=== PATIENT | male | born 1965 | race Caucasian/White ===

== ENCOUNTER 2016-09-25 05:04 | Inpatient (IN) | payer OTHER ==
[2016-09-25] MEDS ORDERED: DILTIAZEM 125 MG in SODIUM CHLORIDE 0.9% 100 ML IV ONE (05:20)
[2016-09-25] MEDS ORDERED: SODIUM CHLORIDE 0.9% 1,000 ML IV ONE ×2 (05:20→07:24)
--- NOTE | 2016-09-25 05:27 | ED ---
General Adult HPI - General Chief complaint: Chest Pain Stated complaint: chest pain Time Seen by Provider: 09/25/16 05:07 Source: patient, EMS Mode of arrival: EMS Limitations: no limitations - History of Present Illness Initial comments: This is a 51-year-old male with a history of a true fibrillation on Zarontin who presents emergency department for lightheadedness, generalized malaise, chest pain, shortness of breath. He states that the symptoms started this morning. He states he has not missed any of his medications. Denies any fevers or chills. No recent travel or surgeries. No history of PE or DVT. He states that he feels like he is in atrial fibrillation and denies any other complaints. - Related Data Home Medications Medication Instructions Recorded Confirmed Primidone 50 mg PO DAILY 07/10/15 09/25/16 Albuterol Inhaler [Ventolin Hfa 1 - 2 puff INHALATION RT-Q4H PRN 09/25/16 Inhaler] Albuterol Nebulized [Ventolin 2.5 mg INHALATION RT-TID 09/25/16 09/25/16 Nebulized] Budesonide [Pulmicort Flexhaler] 1 puff INHALATION RT-BID 09/25/16 09/25/16 PARoxetine HCL [Paxil] 40 mg PO DAILY 09/25/16 09/25/16 Rivaroxaban [Xarelto] 20 mg PO HS 09/25/16 09/25/16 Sotalol [Betapace] 80 mg PO Q12H 09/25/16 09/25/16 Tiotropium 18 Mcg/Puff [Spiriva] 1 cap INHALATION RT-DAILY 09/25/16 09/25/16 Previous Rx's Medication Instructions Recorded Atenolol [Tenormin] 25 mg PO DAILY #30 tab 05/17/16 Allergies Allergy/AdvReac Type Severity Reaction Status Date / Time warfarin [From Coumadin] AdvReac MAKES Verified 09/25/16 07:31 BLOOD TOO THIN Review of Systems ROS Statement: Those systems with pertinent positive or pertinent negative responses have been documented in the HPI. ROS Other: All systems not noted in ROS Statement are negative. Past Medical History Past Medical History: Atrial Fibrillation, Heart Failure, COPD, Hyperlipidemia, Hypertension, Pneumonia, Pulmonary Embolus (PE) Additional Past Medical History / Comment(s): CHF EF 40-45%, cardiomyopathy with an ejection fraction of 40%, tremors, proximated fibrillation, COPD, hypertension, hyperlipidemia, pulmonary emolism 04/22/2016 History of Any Multi-Drug Resistant Organisms: None Reported Past Surgical History: Adenoidectomy, Cholecystectomy, Tonsillectomy Additional Past Surgical History / Comment(s): RT HAND SX (TENDON REPAIR).RT THIGH SKIN LESION EXCISION(SQUAMOUS CELL CARCINOMA) Past Anesthesia/Blood Transfusion Reactions: No Reported Reaction Past Psychological History: No Psychological Hx Reported Smoking Status: Former smoker Past Alcohol Use History: Occasional Additional Past Alcohol Use History / Comment(s): STARTED SMOKING 1983, quit 2013 Past Drug Use History: None Reported - Past Family History Mother Family Medical History: Cancer, Coronary Artery Disease (CAD) Father Additional Family Medical History / Comment(s): IN [place] WHEN PT WAS 1 YEARS OLD. General Exam - General Exam Comments Initial Comments: Constitutional: Awake alert Appears comfortable Head: Normocephalic atraumatic Eyes: no conjunctival injection No scleral icterus EOMI Neck: No JVD Supple Heart: Irregularly irregular rhythm with tachycardia normal S1-S2 no murmurs Lungs: Clear to auscultation bilaterally No wheezing No rales Abdomen: Soft nondistended nontender Extremities: Non edematous DP pulses intact Radial pulses intact Neuro: A&Ox3 No focal neurologic deficits Psych: Appropriate mood and affect Limitations: no limitations Course Vital Signs 09/25/16 09/25/16 09/25/16 05:04 05:24 06:53 Temperature 97 F L Pulse Rate 71 129 H Pulse Rate [ 143 H 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 No ST segment changes or T-wave inversions. QTC is 482. Other intervals are normal. No ectopy. Medical Decision Making - Lab Data Result diagrams: 09/25/16 05:19 09/25/16 05:19 Lab Results 09/25/16 09/25/16 09/25/16 Range/Units 05:19 05:19 05:19 WBC 11.3 H (3.8-10.6) k/uL RBC 4.26 L (4.30-5.90) m/uL Hgb 12.0 L (13.0-17.5) gm/dL Hct 38.0 L (39.0-53.0) % MCV 89.2 (80.0-100.0) fL MCH 28.2 (25.0-35.0) pg MCHC 31.7 (31.0-37.0) g/dL RDW 15.6 H (11.5-15.5) % Plt Count 300 (150-450) k/uL Neutrophils % 56 % Lymphocytes % 33 % Monocytes % 7 % Eosinophils % 0 % Basophils % 0 % Neutrophils # 6.4 (1.3-7.7) k/uL Lymphocytes # 3.7 (1.0-4.8) k/uL Monocytes # 0.8 (0-1.0) k/uL Eosinophils # 0.1 (0-0.7) k/uL Basophils # 0.0 (0-0.2) k/uL PT 12.2 H (9.0-12.0) sec INR 1.2 (<1.1) APTT 27.8 (22.0-30.0) sec Sodium 147 H (137-145) mmol/L Potassium 4.8 (3.5-5.1) mmol/L Chloride 113 H (98-107) mmol/L Carbon Dioxide 17 L (22-30) mmol/L Anion Gap 17 mmol/L BUN 15 (9-20) mg/dL Creatinine 1.20 (0.66-1.25) mg/dL Est GFR (MDRD) Af Amer >60 (>60 ml/min/1.73 sqM) Est GFR (MDRD) Non-Af >60 (>60 ml/min/1.73 sqM) Glucose 114 H (74-99) mg/dL Plasma Lactic Acid Ernesto (0.7-2.0) mmol/L Calcium 8.8 (8.4-10.2) mg/dL Magnesium 1.8 (1.6-2.3) mg/dL Total Bilirubin 0.7 (0.2-1.3) mg/dL AST 49 (17-59) U/L ALT 52 (21-72) U/L Alkaline Phosphatase 114 (38-126) U/L CK-MB (CK-2) (0.0-2.4) ng/mL Troponin I (0.000-0.034) ng/mL Total Protein 6.8 (6.3-8.2) g/dL Albumin 3.7 (3.5-5.0) g/dL TSH <0.015 L (0.465-4.680) mIU/L Free T4 4.40 H (0.78-2.19) ng/dL 09/25/16 09/25/16 Range/Units 05:19 06:40 WBC (3.8-10.6) k/uL RBC (4.30-5.90) m/uL Hgb (13.0-17.5) gm/dL Hct (39.0-53.0) % MCV (80.0-100.0) fL MCH (25.0-35.0) pg MCHC (31.0-37.0) g/dL RDW (11.5-15.5) % Plt Count (150-450) k/uL Neutrophils % % Lymphocytes % % Monocytes % % Eosinophils % % Basophils % % Neutrophils # (1.3-7.7) k/uL Lymphocytes # (1.0-4.8) k/uL Monocytes # (0-1.0) k/uL Eosinophils # (0-0.7) k/uL Basophils # (0-0.2) k/uL PT (9.0-12.0) sec INR (<1.1) APTT (22.0-30.0) sec Sodium (137-145) mmol/L Potassium (3.5-5.1) mmol/L Chloride (98-107) mmol/L Carbon Dioxide (22-30) mmol/L Anion Gap mmol/L BUN (9-20) mg/dL Creatinine (0.66-1.25) mg/dL Est GFR (MDRD) Af Amer (>60 ml/min/1.73 sqM) Est GFR (MDRD) Non-Af (>60 ml/min/1.73 sqM) Glucose (74-99) mg/dL Plasma Lactic Acid Ernesto 5.1 H* (0.7-2.0) mmol/L Calcium (8.4-10.2) mg/dL Magnesium (1.6-2.3) mg/dL Total Bilirubin (0.2-1.3) mg/dL AST (17-59) U/L ALT (21-72) U/L Alkaline Phosphatase (38-126) U/L CK-MB (CK-2) 1.3 (0.0-2.4) ng/mL Troponin I <0.012 (0.000-0.034) ng/mL Total Protein (6.3-8.2) g/dL Albumin (3.5-5.0) g/dL TSH (0.465-4.680) mIU/L Free T4 (0.78-2.19) ng/dL Critical Care Time Critical Care Time: Yes Total Critical Care Time: 35 Critical Care Time: Critical care time spent obtaining history from the patient, evaluation, review of blood work, multiple fluid boluses, starting Cardizem drip and also given multiple doses of Lopressor. Spoke with multiple consultants including ICU, cardiology and internal medicine. Also spent with continuous cardiac monitoring of the patient and reevaluation. Disposition Clinical Impression: Atrial fibrillation with RVR, Hyperthyroidism, Lactic acidosis Disposition: ADMITTED IP TO THIS HOSP Condition: Stable
[2016-09-25 05:39] LABS: Basophils % (A) 0 %; CH 28.2; CHCM 31.8; Eosinophils # (A) 0.1 k/uL (0-0.7); Eosinophils % (A) 0 %; HDW 2.76; Luc # (Auto) 0.39; Luc % (Auto) 4; Lymphocytes # (A) 3.7 k/uL (1.0-4.8); Lymphocytes % (A) 33 %; MCH 28.2 pg (25.0-35.0); MCHC 31.7 g/dL (31.0-37.0); MCV 89.2 fL (80.0-100.0); Mean Platelet Volume 6.5; Monocytes # (A) 0.8 k/uL (0-1.0); Monocytes % (A) 7 %; Neutrophils # (A) 6.4 k/uL (1.3-7.7); Neutrophils % (A) 56 %; RBC 4.26 m/uL (4.30-5.90); RDW 15.6 % (11.5-15.5); WBC 11.3 k/uL (3.8-10.6); WBC (Perox) 11.05
[2016-09-25] MEDS ORDERED: DILTIAZEM 5 MG/ML 5 ML VIAL IVP STA (05:47)
[2016-09-25 05:48] LABS: INR 1.2 (<1.1); Partial Thromboplastin Time 27.8 sec (22.0-30.0); Prothrombin Time 12.2 sec (9.0-12.0)
[2016-09-25 05:51] LABS: ALT 52 U/L (21-72); AST 49 U/L (17-59); Alkaline Phosphatase 114 U/L (38-126); Anion Gap 17 mmol/L; Blood Urea Nitrogen 15 mg/dL (9-20); Calcium 8.8 mg/dL (8.4-10.2); Carbon Dioxide 17 mmol/L (22-30); Chloride 113 mmol/L (98-107); Glucose 114 mg/dL (74-99); Magnesium 1.8 mg/dL (1.6-2.3); Non-African American GFR(MDRD) >60 (>60 ml/min/1.73 sqM); Potassium 4.8 mmol/L (3.5-5.1); Sodium 147 mmol/L (137-145); Total Bilirubin 0.7 mg/dL (0.2-1.3); Total Protein 6.8 g/dL (6.3-8.2)
[2016-09-25 06:13] LABS: Creatine Kinase MB 1.3 ng/mL (0.0-2.4); Troponin I <0.012 ng/mL (0.000-0.034)
[2016-09-25] MEDS ORDERED: METOPROLOL TARTRATE 5 MG/5 ML VIAL IVP STA ×2 (06:48→07:19)
[2016-09-25] MEDS: SODIUM CHLORIDE 0.9% 1,000 ML IV SCH ×2 (06:55→09:44)
--- NOTE | 2016-09-25 07:29 | XR ---
EXAMINATION TYPE: XR chest 2V DATE OF EXAM: 09/25/2016 7:14 AM HISTORY: Pain. REFERENCE: Previous study dated 05/12/2016. FINDINGS: the lungs are clear. Pleural spaces are clear. Heart size is normal. IMPRESSION: NORMAL CHEST.
[2016-09-25] MEDS ORDERED: NALOXONE 0.4 MG/ML 1 ML VIAL IV PRN (08:08)
[2016-09-25 08:12] LABS: Appearance,Urine Cloudy (Clear); Bilirubin,Urine Negative (Negative); Glucose,Urine (UA) Negative (Negative); Ketones,Urine Trace (Negative); Leukocyte Esterase,Urine Negative (Negative); Mucus,Urine Rare /hpf; Nitrite,Urine Negative (Negative); Particle Count 6430; Protein,Urine 1+ (Negative); RBC,Urine <1 /hpf (0-5); Specific Gravity,Urine 1.019 (1.001-1.035); Squamous Epithelial Cell,Urine <1 /hpf (0-4); UA Billing (MACRO vs. MICRO) MICRO; WBC,Urine 2 /hpf (0-5)
[2016-09-25] MEDS ORDERED: METHIMAZOLE 5 MG TAB PO STA (08:28)
[2016-09-25] MEDS ORDERED: ATENOLOL 50 MG TAB PO STA (08:33)
[2016-09-25 10:09] LABS: Glucose,Whole Blood 93 mg/dL (75-99)
[2016-09-25] MEDS: PARoxetine 20 MG TAB PO SCH (10:30)
[2016-09-25] MEDS: PRIMIDONE 50 MG TAB PO SCH (10:35)
--- NOTE | 2016-09-25 13:52 | P.CNPUL ---
History of Present Illness Consult date: 09/25/16 Requesting physician: Nicole Girder Reason for consult: dyspnea, other (Palpitations and lightheadedness) Chief complaint: Chest pain History of present illness: This is a 51-year-old white male with history of chronic atrial fibrillation, on anticoagulation therapy, and on multiple antiarrhythmic agents, patient usually follows up with Dr. Gallardo on a regular basis for his atrial fibrillation. Patient presented to the ER this morning with multiple complaints including feeling lightheaded, weakness, fatigue malaise, and some shortness of breath as well as some vague left-sided chest discomfort. Upon evaluation in the ER, he was found to be in atrial fibrillation and RVR. Which is not unusual for this patient to have, and I have seen him in the past on multiple occasions for atrial fibrillation with RVR. Patient never had any ablation in the past, and never required cardioversion. Upon my evaluation, patient had mostly palpitations, some vague left-sided chest discomfort, denied any headaches no blurred vision no dizziness. No nausea no vomiting no abdominal pain no melena no hematemesis, no dysuria and no frequency no urgency. Patient is already on Cardizem drip, and he is yet to be seen by cardiology on consultation. His lactic acid was elevated in the ER, but no signs or symptoms to suggest ongoing infection. Review of Systems 14 point review of systems were obtained, please refer to pertinent positives and negatives in HPI. Past Medical History Past Medical History: Atrial Fibrillation, Atrial Flutter, Cancer, Heart Failure , COPD, Hyperlipidemia, Hypertension, Pneumonia, Pulmonary Embolus (PE) Additional Past Medical History / Comment(s): Paroxysmal A flutter, CHF EF 40-45 %, cardiomyopathy with an ejection fraction of 40%, tremors, COPD, pulmonary embolism 04/22/2016, squamous cell skin cancer with removal. History of Any Multi-Drug Resistant Organisms: None Reported Past Surgical History: Adenoidectomy, Cholecystectomy, Tonsillectomy Additional Past Surgical History / Comment(s): RT HAND SX (TENDON REPAIR).RT THIGH SKIN LESION EXCISION(SQUAMOUS CELL CARCINOMA) Past Anesthesia/Blood Transfusion Reactions: No Reported Reaction Past Psychological History: Anxiety Additional Psychological History / Comment(s): Pt resides with his brother. He is independent. Smoking Status: Former smoker Past Alcohol Use History: Occasional Additional Past Alcohol Use History / Comment(s): STARTED SMOKING 1983, quit 2013 Past Drug Use History: None Reported - Past Family History Mother Family Medical History: Cancer, Coronary Artery Disease (CAD) Additional Family Medical History / Comment(s): Mother had throat cancer and of this at the age of 68yrs. Father Additional Family Medical History / Comment(s): IN [place] WHEN PT WAS 1 YEARS OLD. Medications and Allergies Home Medications Medication Instructions Recorded Confirmed Type Primidone 50 mg PO DAILY 07/10/15 09/25/16 History Albuterol Inhaler [Ventolin Hfa 1 - 2 puff INHALATION RT-Q4H PRN 09/25/16 History Inhaler] Albuterol Nebulized [Ventolin 2.5 mg INHALATION RT-TID 09/25/16 09/25/16 History Nebulized] Budesonide [Pulmicort Flexhaler] 1 puff INHALATION RT-BID 09/25/16 09/25/16 History PARoxetine HCL [Paxil] 40 mg PO DAILY 09/25/16 09/25/16 History Rivaroxaban [Xarelto] 20 mg PO HS 09/25/16 09/25/16 History Sotalol [Betapace] 80 mg PO Q12H 09/25/16 09/25/16 History Tiotropium 18 Mcg/Puff [Spiriva] 1 cap INHALATION RT-DAILY 09/25/16 09/25/16 History Allergies Allergy/AdvReac Type Severity Reaction Status Date / Time warfarin [From Coumadin] AdvReac MAKES Verified 09/25/16 07:31 BLOOD TOO THIN Physical Exam Vitals: Vital Signs Temp Pulse Resp BP Pulse Ox 09/25/16 11:00 139 H 28 H 87/50 99 09/25/16 10:30 138 H 20 114/75 99 09/25/16 10:10 98.2 F 141 H 26 H 123/76 98 09/25/16 09:45 99.3 F 140 H 18 110/67 97 09/25/16 09:15 136 H 18 96 09/25/16 08:45 136 H 95 09/25/16 08:30 138 H 18 09/25/16 08:15 142 H 18 129/58 Intake and Output 09/24/16 09/25/16 09/25/16 22:59 06:59 14:59 Intake Total 680 Balance 680 Intake: IV 200 Sodium Chloride 0.9% 1, 200 000 ml @ 100 mls/hr IV . Q10H [facility] Rx#:[id number] Oral 480 Other: Voiding Method Urinal Weight 73.1 kg Patient Weight 09/26/16 06:59 Weight 73.1 kg Physical Exam: Revealed a 51-year-old white male in no distress HEENT:[Neck is supple.] [No neck masses.] [No thyromegaly.] [No JVD.] Chest: [Clear throughout, no crackles, no rhonchi, no wheezes.] Cardiac Exam: [Irregular irregular rhythm Normal S1 and S2, no S3 gallop, no murmur.] Abdomen: [Soft, nontender, no megaly, no rebound, no guarding, normal bowel sounds.] Extremities: [No clubbing, no edema, no cyanosis.] Neurological Exam: [No focal neurologic deficit.] Results - Laboratory Findings CBC and BMP: 09/25/16 05:19 09/25/16 05:19 PT/INR, D-dimer PT 12.2 sec (9.0-12.0) H 09/25/16 05:19 INR 1.2 (<1.1) 09/25/16 05:19 Abnormal lab findings: Abnormal Labs 09/25/16 10:48 Plasma Lactic Acid Ernesto 2.8 H* - Diagnostic Findings Chest x-ray: image reviewed (Normal chest) Assessment and Plan Plan: Impression: 1 paroxysmal atrial fibrillation with RVR. 2 history of multiple medical problems including COPD which is presently stable and inactive, history of hypertension, hyperlipidemia, history of cardiomyopathy ejection fraction is roughly about 40% based on previous echo. 3 elevated lactic acid, given fluid boluses in the ER, but no evidence of any clinical infection at this point. Strongly doubt any sepsis at this point. Recommendation: Agree with the present treatment plan, patient is presently on Cardizem drip, his also on beta blockers in the form of Inderal, and he is on anticoagulation therapy. Patient is also on bronchodilators as taken at home. We'll continue to follow. Time with Patient: Greater than 30
[2016-09-25] MEDS ORDERED: LACTATED RINGERS 1,000 ML IV SCH (14:45)
--- NOTE | 2016-09-25 15:59 | CONS ---
DATE OF CONSULTATION: This is a gentleman with a history of paroxysmal atrial fibrillation, and he also has hypothyroidism. He was supposed to see Dr. Tawana Chaparro in the next week or so. He sees Dr. Quick in the outpatient setting. He came into the hospital having episodes of dizziness, lightheadedness, falling down, weakness, lack of energy for nearly 48 hours. He was found to be in atrial fibrillation with a very rapid rate of nearly 180 beats per minute. He was also hyperthyroid, very tremulous, with a free T4 of 4.4. I received a call from the emergency room and I recommended that we initiate him on anti-thyroid drug and also Inderal. Patient apparently was on Betapace and atenolol at home and also Rivaroxaban 20 mg daily. However, patient is not a very good historian. He is unable to give me any information with regards to what medications he was taking. After he came into the hospital he received beta autumn and was placed on a Cardizem drip. He converted to sinus rhythm. At the time of my evaluation he is resting comfortably without symptoms and feels better. PAST MEDICAL HISTORY: 1. Paroxysmal atrial fibrillation. 2. 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 Medications at home include: 1. Xarelto. 2. Betapace. 3. Atenolol. On examination, blood pressure is 104/60. Pulse rate is 80 per minute. HEENT: Unremarkable. Fundus was not examined by me. Neck is supple. There is no JVD. I do not hear a carotid bruit. Heart exam reveals S1, S2 heard normally. Lungs are clear. Abdomen is soft, non-tender. Lower extremities reveal diminished pulses. Central nervous system grossly within normal limits. EKG revealed atrial fibrillation with rapid ventricular rate. Repeat EKG revealed sinus mechanism. IMPRESSION: 1. Paroxysmal atrial fibrillation. 2. Hyperthyroidism. 3. No evidence of any other major risk factors. RECOMMENDATIONS: I am recommending that we place him on Inderal 30 mg t.i.d. and also start him on PTU 200 mg q.8 hours for 3 days and then switch him to Tapazole 10 mg b.i.d. after that. He was also advised to follow up with Dr. Tawana Chaparro after discharge. He will have an echocardiogram performed as well. Thank you very much for the consult.
[2016-09-25] MEDS ORDERED: METHIMAZOLE 5 MG TAB PO SCH (16:00)
[2016-09-25] MEDS: PROPYLTHIOURACIL 50 MG TAB PO SCH ×2 (17:14→21:33)
[2016-09-25] MEDS: PROPRANOLOL 10 MG TAB PO SCH ×2 (17:14→21:34)
[2016-09-25] MEDS: SODIUM CHLORIDE 0.45% 1,000 ML IV SCH (17:15)
[2016-09-25] MEDS: BUDESONIDE 1 MG/2 ML NEBU INHALATION SCH (20:45)
[2016-09-25] MEDS ORDERED: RIVAROXABAN 10 MG TAB PO SCH (21:00)
--- NOTE | 2016-09-25 21:33 | HP ---
DATE OF ADMISSION: Patient is a 51-year-old with a history of chronic atrial fibrillation. He came in with complaints of palpitations. The patient was found to be in atrial fibrillation. Patient was feeling lightheaded, weak, fatigued, malaise. Patient is on anticoagulation Xarelto at home. Patient has a history of atrial fibrillation in the past. Patient at this point of time is tremulous. Patient has symptoms of hypothyroidism, including lack of sleep recently. Patient was complaining of left-sided chest discomfort. He was complaining of some diaphoresis which has been going on for some time. Patient in the past has required cardioversion. Patient's previous ejection fraction is essentially within normal limits. Patient was found to have hyperthyroidism. Patient was appropriately discharged on propylthiouracil as well as propranolol, and atenolol was discontinued. Patient is on Cardizem drip. Patient had an elevated lactic acid due to intravascular volume depletion. No other signs or symptoms of infection. Chest x-ray is essentially within normal limits. Patient denied any dysuria. REVIEW OF SYSTEMS: CONSTITUTIONAL: No fever, no malaise, no fatigue. HEENT: No recent visual problems or hearing problems. Denied any sore throat. CARDIOVASCULAR: As described in HPI. PULMONARY: No shortness of breath, no cough, no hemoptysis. GASTROINTESTINAL: No diarrhea, no nausea, no vomiting, no abdominal pain. Normoactive bowel sounds. NEUROLOGICAL: No headaches, no weakness, no numbness. HEMATOLOGICAL: Denies any bleeding or petechiae. GENITOURINARY: Denies any burning micturition, frequency, or urgency. MUSCULOSKELETAL/RHEUMATOLOGICAL: Denies any joint pain, swelling, or any muscle pain. ENDOCRINE: Denies any polyuria or polydipsia. The rest of the 14 point review of systems is negative. PAST MEDICAL HISTORY: 1. Atrial fibrillation. 2. COPD. 3. Hyperlipidemia 4. Pulmonary embolism in the past. 5. Hypertension. 6. Patient's last ejection fraction was around 55%. 7. Cholecystectomy. 8. Adenoidectomy. 9. Tonsillectomy. 10. Patient has now hyperthyroidism. 11. Anxiety disorder. SOCIAL HISTORY: Former smoker. Quit smoking in 2013. Denied any alcohol abuse or any drug abuse. FAMILY HISTORY: Mother had coronary disease and cancer. Father in [place]. HOME MEDICATIONS: 1. Primidone. 2. Albuterol. 3. Budesonide. 4. ( ) 5. Paroxetine. 6. Rivaroxaban. 7. Sotalol. 8. Tiotropium. ALLERGIES: COUMADIN. PHYSICAL EXAMINATION: VITAL SIGNS: Temperature 98.0, pulse of 68 on Cardizem drip. Respiratory rate of 33. Blood pressure is 110/63. Saturating at 97% on room air. GENERAL: The patient is alert and oriented x3, not in any acute distress. Well developed, well nourished. HEENT: Pupils are round and equally reacting to light. EOMI. No scleral icterus. No conjunctival pallor. Normocephalic, atraumatic. No pharyngeal erythema. No thyromegaly. CARDIOVASCULAR: S1, S2 present. Patient is not tachycardic. Patient has irregularly irregular rhythm. PULMONARY: Chest is clear to auscultation, no wheezing or crackles. ABDOMEN: Soft, nontender, nondistended, normoactive bowel sounds. No palpable organomegaly. MUSCULOSKELETAL: No joint swelling or deformity. EXTREMITIES: No cyanosis, clubbing, or pedal edema. NEUROLOGICAL: Gross neurological examination did not reveal any focal deficits. SKIN: No rashes. LABORATORY DATA, SIGNIFICANT ONES: TSH is low and T4 is elevated. Lactate is elevated. Because of the elevated chloride and sodium I will put him on half normal saline. ASSESSMENT AND PLAN: 1. Atrial fibrillation with rapid ventricular rate. Patient has paroxysmal atrial fibrillation. Management as mentioned above. Patient will be continued on Xarelto. 2. Hyperthyroidism. Patient was started on PT and propranolol and beta autumn was discontinued. 3. Chronic obstructive pulmonary disease without any acute exacerbation. 4. Elevated lactic acid secondary to intravascular volume depletion. No signs or symptoms of infection were appreciated. Initially I started him on lactated Ringer's, which will be discontinued. Since I discovered increased lactic, patient will be started on IV half normal saline. Patient has hypernatremia and hyperchloremia due to IV fluids he was receiving.
[2016-09-25 21:47] VITALS: RESP 16
[2016-09-26] MEDS: SODIUM CHLORIDE 0.45% 1,000 ML IV SCH ×2 (04:04→15:12)
[2016-09-26] MEDS: PROPYLTHIOURACIL 50 MG TAB PO SCH ×2 (07:00→15:11)
[2016-09-26] MEDS: BUDESONIDE 1 MG/2 ML NEBU INHALATION SCH (07:35)
[2016-09-26] MEDS ORDERED: TIOTROPIUM 18 MCG/PUFF INHALER INHALATION SCH (08:00)
[2016-09-26] MEDS: PRIMIDONE 50 MG TAB PO SCH (08:43)
[2016-09-26] MEDS: PARoxetine 20 MG TAB PO SCH (08:43)
[2016-09-26] MEDS: PROPRANOLOL 10 MG TAB PO SCH ×2 (08:44→15:11)
--- NOTE | 2016-09-26 09:52 | ECHOF ---
Referral Reason:afib with rvr MEASUREMENTS -------- HEIGHT: 162.6 cm WEIGHT: 73.0 kg BP: 117/55 IVSd: 1.2 cm (0.6 - 1.1) LVIDd: 5.5 cm (3.9 - 5.3) LVPWd: 1.1 cm (0.6 - 1.1) IVSs: 1.3 cm LVIDs: 4.9 cm LVPWs: 1.0 cm LA Diam: 4.4 cm (2.7 - 3.8) LAESV Index (A-L): 34.83 ml/m Ao Diam: 3.2 cm (2.0 - 3.7) AV Cusp: 2.0 cm (1.5 - 2.6) LA Diam: 3.9 cm (2.7 - 3.8) MV EXCURSION: 22.213 mm (> 18.000) MV EF SLOPE: 109 mm/s (70 - 150) EPSS: 0.8 cm MV E Aris: 1.11 m/s MV DecT: 196 ms MV A Aris: 0.75 m/s MV E/A Ratio: 1.48 RAP: 5.00 mmHg RVSP: 42.49 mmHg FINDINGS -------- Sinus rhythm. This was a technically adequate study. There is mild concentric left ventricular hypertrophy. Overall left ventricular systolic function is low-normal with, an EF between 50 - 55 %. The right ventricle is normal in size. LA is moderately dilated 34-39 ml/m2 The right atrial size is normal. There is mild aortic valve sclerosis. There is no evidence of aortic regurgitation. Mild mitral annular calcification present. Mild mitral regurgitation is present. Mild tricuspid regurgitation present. There is mild pulmonary hypertension. The right ventricular systolic pressure, as measured by Doppler, is 42.49mmHg. There is no pulmonic regurgitation present. The aortic root size is normal. There is no pericardial effusion. CONCLUSIONS -------- 1. There is mild concentric left ventricular hypertrophy. 2. There is no pulmonic regurgitation present. 3. The aortic root size is normal. 4. There is no pericardial effusion. 5. Overall left ventricular systolic function is low-normal with, an EF between 50 - 55 %. 6. LA is moderately dilated 34-39 ml/m2 7. There is mild aortic valve sclerosis. 8. Mild mitral annular calcification present. 9. Mild mitral regurgitation is present. 10. Mild tricuspid regurgitation present. 11. There is mild pulmonary hypertension. 12. The right ventricular systolic pressure, as measured by Doppler, is 42.49mmHg. CATERING CHEF: Radha Zee RDCS
--- NOTE | 2016-09-26 12:03 | P.PN ---
Subjective Principal diagnosis: Atrial fibrillation This is a 51-year-old gentleman with history of paroxysmal atrial fibrillation and hypothyroidism who follows regularly with Dr. Quick in the office. He presented to the hospital primarily with symptoms of dizziness and lightheadedness, he was found to be in atrial fibrillation with a rapid ventricular response. Patient continues to be in atrial fibrillation today, his rate is under better control. Echocardiogram with Doppler study was performed which revealed an ejection fraction of 50-55%. Patient is currently on Inderal 30 mg 3 times a day as well as Xarelto. We will continue these current medications. Objective - Vital Signs Vital signs: Vital Signs Temp 97.3 F L 09/26/16 08:00 Pulse 80 09/26/16 08:00 Resp 16 09/26/16 08:00 BP 132/71 09/26/16 08:00 Pulse Ox 99 09/26/16 08:00 Intake & Output 09/25/16 09/26/16 09/26/16 18:59 06:59 18:59 Intake Total 2423 950 120 Output Total 275 750 950 Balance 2148 200 -830 Weight 73.1 kg 74.5 kg Intake: IV 900 950 Sodium Chloride 0.45% 1, 950 000 ml @ 100 mls/hr IV . Q10H RENZO Rx#:[id number] Sodium Chloride 0.9% 1, 900 000 ml @ 100 mls/hr IV . Q10H RENZO Rx#:[id number] Intake, IV Titration 83 Amount Diltiazem 125 mg In 83 Sodium Chloride 0.9% 100 ml @ 10 MG/HR 10 mls/hr IV .[id number] ONE Rx#: [id number] Oral 1440 120 Output: Urine 275 750 950 Other: Voiding Method Urinal Urinal Urinal # Voids 0 - Exam PHYSICAL EXAMINATION: HEENT: Head is atraumatic, normocephalic. Pupils equal, round. Neck is supple. There is no elevated jugular venous pressure. HEART EXAMINATION: S1 and S2 irregularly irregular CHEST EXAMINATION: Lungs are clear to auscultation and precussion. No chest wall tenderness is noted on palpation or with deep breathing. ABDOMEN: Soft, nontender. Bowel sounds are heard. No organomegaly noted. EXTREMITIES: 2+ peripheral pulses with no evidence of peripheral edema and no calf tenderness noted. NEUROLOGIC patient is awake, alert and oriented -3. . - Labs CBC & Chem 7: 09/25/16 05:19 09/25/16 05:19 Assessment and Plan (1) Paroxysmal a-fib Status: Acute (2) COPD (chronic obstructive pulmonary disease) Status: Acute (3) HTN (hypertension) Status: Acute (4) Hyperlipemia Status: Acute (5) Hypertension Status: Acute Plan: From cardiology's perspective, we'll continue the patient on his current medications including anticoagulation with xarelto. DNP note has been reviewed, I agree with a documented findings and plan of care. Patient was seen and examined.
[2016-09-26 12:24] VITALS: BP 126/63; PULSE 82; TEMP 98.6
--- NOTE | 2016-09-27 12:40 | DS ---
DATE OF ADMISSION: 09/25/2016 DATE OF DISCHARGE: 09/26/2016 62-year-old admitted for atrial fibrillation precipitated by primary hyperparathyroidism. Patient is clinically doing well. Rate-controlled since last night and converted to sinus rhythm. Patient was started on ( ) and patient still has tremors which is expected improved down the line and patient will be discharged today. REVIEW OF SYSTEMS: CARDIOVASCULAR: No chest pain, no orthopnea, no PND, no palpitations. PULMONARY: Denied any shortness of breath. No cough or hemoptysis. GASTROINTESTINAL: No diarrhea, nausea or vomiting. No abdominal pain. Normoactive bowel sounds. NEUROLOGIC: No headaches, no weakness, no numbness. Medications were reviewed. PHYSICAL EXAMINATION: VITAL SIGNS: Temperature 98.6, pulse 80, respiratory rate of 16, blood pressure is 126/63, saturating at 99% on room air. GENERAL: Patient is alert and oriented x3. Patient does have nonessential tremor at this point of time. HEENT: Pupils are round and equally reacting to light. EOMI. No scleral icterus. No conjunctival pallor. Normocephalic, atraumatic. No pharyngeal erythema. No thyromegaly. CARDIOVASCULAR: S1 and S2 present. No murmurs, rubs, or gallops. PULMONARY: Chest is clear to auscultation, no wheezing or crackles. ABDOMEN: Soft, nontender, nondistended, normoactive bowel sounds. No palpable organomegaly. MUSCULOSKELETAL: No joint swelling or deformity. EXTREMITIES: No cyanosis, clubbing, or pedal edema. NEUROLOGICAL: Gross neurological examination did not reveal any focal deficits. SKIN: No rashes. LABORATORY DATA: None available from today. ASSESSMENT AND PLAN: 1. Atrial fibrillation with rapid ventricular rate. Patient is rate-controlled at this point of time. Patient is on ( ) which will be continued. 2. Primary hyperparathyroidism. Patient was started on ( ) and ( ). The patient is clinically doing well and will be discharged today. 3. Chronic obstructive pulmonary disease without any acute exacerbation. 4. Elevated lactic acid due to intravascular volume depletion. Patient has COPD, which needs to be watched for because Propranolol can precipitate chronic obstructive pulmonary disease. Patient is otherwise clinically doing well and please refer to my depart summary for details of discharge medications. Activity as tolerated. Cardiac diet. Follow up with primary care physician, Dr. Mónica Acosta in 3 days. Follow up with Dr. Tommie Chaparro as scheduled and follow-up with Dr. Tawana Chaparro in one week. Activity as tolerated. Cardiac diet. Spent greater than 35 minutes in total discharge process.
== END 2016-09-26 19:49 | disposition home or self-care (01) | DRG 309 ==
LOC: EC 05:04 → 6ICU 08:08 → 6SEL 19:18
PROVIDERS: ADMIT Hospitalist; ATTEND Hospitalist
DX: I48.0 Paroxysmal atrial fibrillation (principal); E87.2 Acidosis; E87.0 Hyperosmolality and hypernatremia; I11.0 Hypertensive heart disease with heart failure; I42.9 Cardiomyopathy, unspecified; E87.8 Other disorders of electrolyte and fluid balance, not elsewhere classified; I50.9 Heart failure, unspecified; I48.92 Unspecified atrial flutter; J44.9 Chronic obstructive pulmonary disease, unspecified; E05.90 Thyrotoxicosis, unspecified without thyrotoxic crisis or storm; E86.9 Volume depletion, unspecified; E21.0 Primary hyperparathyroidism; E78.5 Hyperlipidemia, unspecified; Z86.711 Personal history of pulmonary embolism; Z85.828 Personal history of other malignant neoplasm of skin; Z90.49 Acquired absence of other specified parts of digestive tract; Z87.891 Personal history of nicotine dependence; Z79.51 Long term (current) use of inhaled steroids; Z79.01 Long term (current) use of anticoagulants; Z79.899 Other long term (current) drug therapy; F41.9 Anxiety disorder, unspecified; Z82.49 Family history of ischemic heart disease and other diseases of the circulatory system
CPT/HCPCS: 36415; 71020; 80053; 81001; 82553; 83605; 83735; 84439; 84443; 84484; 85025; 85610; 85730; 87086; 93005; 93306; 94640; 96366; 96375; 96376; 99291

== ENCOUNTER 2016-10-13 10:31 | Inpatient (IN) | payer OTHER ==
[2016-10-13] MEDS ORDERED: LORazepam 2 MG/ML SYRINGE IV STA (10:36)
[2016-10-13] MEDS ORDERED: ALBUTEROL NEBULIZED 15 MG, IPRATROPIUM NEBULIZED 0.5 MG INHALATION ONE ×2 (10:37)
[2016-10-13] MEDS ORDERED: IPRATROPIUM 0.5 MG/2.5 ML NEBU INHALATION STA (10:37)
--- NOTE | 2016-10-13 10:41 | ED ---
General Adult HPI - General Stated complaint: Chest Pain Time Seen by Provider: 10/13/16 10:31 Source: RN notes reviewed - History of Present Illness Initial comments: This is a 51-year-old male who presents to the emergency department with past medical history significant for atrial fibrillation COPD and congestive heart failure. Patient presents today starting to have difficulty breathing that became severe so he called EMS. When EMS arrived they said he was very diaphoretic complaining of left-sided chest pain which nitroglycerin did not relieve. Patient received albuterol and steroids on the way in he did stated that it did not help his breathing. Patient states the chest pain does seem to have improved. Patient denies any recent fever chills or cough per patient denies any abdominal pain. Patient denies headache patient denies numbness weakness. Patient denies any lightheadedness dizziness or near syncopal episode. Patient denies any calf pain or swelling of the legs. - Related Data Home Medications Medication Instructions Recorded Confirmed Primidone 50 mg PO DAILY 07/10/15 09/25/16 Albuterol Inhaler [Ventolin Hfa 1 - 2 puff INHALATION RT-Q4H PRN 09/25/16 Inhaler] Albuterol Nebulized [Ventolin 2.5 mg INHALATION RT-TID 09/25/16 09/25/16 Nebulized] Budesonide [Pulmicort Flexhaler] 1 puff INHALATION RT-BID 09/25/16 09/25/16 PARoxetine HCL [Paxil] 40 mg PO DAILY 09/25/16 09/25/16 Rivaroxaban [Xarelto] 20 mg PO HS 09/25/16 09/25/16 Tiotropium 18 Mcg/Puff [Spiriva] 1 cap INHALATION RT-DAILY 09/25/16 09/25/16 Previous Rx's Medication Instructions Recorded Propranolol [Inderal] 30 mg PO TID #90 tab 09/26/16 Propylthiouracil 200 mg PO Q8H #15 tab 09/26/16 Allergies Allergy/AdvReac Type Severity Reaction Status Date / Time warfarin [From Coumadin] AdvReac MAKES Verified 09/25/16 07:31 BLOOD TOO THIN Review of Systems ROS Statement: Those systems with pertinent positive or pertinent negative responses have been documented in the HPI. ROS Other: All systems not noted in ROS Statement are negative. Past Medical History Past Medical History: Atrial Fibrillation, Atrial Flutter, Cancer, Heart Failure , COPD, Hyperlipidemia, Hypertension, Pneumonia, Pulmonary Embolus (PE) Additional Past Medical History / Comment(s): Paroxysmal A flutter, CHF EF 40-45 %, cardiomyopathy with an ejection fraction of 40%, tremors, COPD, pulmonary embolism 04/22/2016, squamous cell skin cancer with removal. History of Any Multi-Drug Resistant Organisms: None Reported Past Surgical History: Adenoidectomy, Cholecystectomy, Tonsillectomy Additional Past Surgical History / Comment(s): RT HAND SX (TENDON REPAIR).RT THIGH SKIN LESION EXCISION(SQUAMOUS CELL CARCINOMA) Past Anesthesia/Blood Transfusion Reactions: No Reported Reaction Past Psychological History: Anxiety Additional Psychological History / Comment(s): Pt resides with his brother. He is independent. Smoking Status: Former smoker Past Alcohol Use History: Occasional Additional Past Alcohol Use History / Comment(s): STARTED SMOKING 1983, quit 2013 Past Drug Use History: None Reported - Past Family History Mother Family Medical History: Cancer, Coronary Artery Disease (CAD) Additional Family Medical History / Comment(s): Mother had throat cancer and of this at the age of 68yrs. Father Additional Family Medical History / Comment(s): IN [place] WHEN PT WAS 1 YEARS OLD. General Exam - General Exam Comments Initial Comments: GENERAL: Patient is well-developed and well-nourished. Patient is nontoxic and well- hydrated and is in moderate distress. ENT: Neck is soft and supple. No significant lymphadenopathy is noted. Oropharynx is clear. Moist mucous membranes. Neck has full range of motion without eliciting any pain. EYES: The sclera were anicteric and conjunctiva were pink and moist. Extraocular movements were intact and pupils were equal round and reactive to light. Eyelids were unremarkable. PULMONARY: Diminished breath sounds throughout. CARDIOVASCULAR: Patient is tachycardic ABDOMEN: Soft and nontender with normal bowel sounds. No palpable organomegaly was noted. There is no palpable pulsatile mass. SKIN: Skin is clear with no lesions or rashes and otherwise unremarkable. NEUROLOGIC: Patient is alert and oriented x3. Cranial nerves II through XII are grossly intact. Motor and sensory are also intact. Normal speech, volume and content. Symmetrical smile. MUSCULOSKELETAL: Normal extremities with adequate strength and full range of motion. No lower extremity swelling or edema. No calf tenderness. LYMPHATICS: No significant lymphadenopathy is noted PSYCHIATRIC: Normal psychiatric evaluation. Normal interpersonal interactions appears functionally intact in deals appropriately with others. Patient is mildly anxious Course Vital Signs 10/13/16 10/13/16 10/13/16 10:36 10:40 10:44 Temperature 95.3 F L Pulse Rate 127 H 107 H Respiratory 36 H 36 H Rate Blood Pressure 163/113 O2 Sat by Pulse 100 Oximetry 10/13/16 10/13/16 10/13/16 11:01 11:32 11:38 Temperature Pulse Rate 107 H 102 H 99 Respiratory 26 H 28 H Rate Blood Pressure 146/97 140/80 O2 Sat by Pulse 100 100 Oximetry Medical Decision Making - Medical Decision Making EKG shows sinus tachycardia at 122 bpm CA interval 234 QRS is 96 Q-T intervals 318 QTC is 453. Patient's EKG shows no ST segment elevation or depression or T wave abnormalities are noted Chest x-ray shows some pulmonary edema. He started the patient on Lasix. - Lab Data Result diagrams: 10/13/16 10:40 10/13/16 10:40 Lab Results 10/13/16 10/13/16 10/13/16 Range/Units 10:40 10:40 10:40 WBC (3.8-10.6) k/uL RBC (4.30-5.90) m/uL Hgb (13.0-17.5) gm/dL Hct (39.0-53.0) % MCV (80.0-100.0) fL MCH (25.0-35.0) pg MCHC (31.0-37.0) g/dL RDW (11.5-15.5) % Plt Count (150-450) k/uL Neutrophils % % Lymphocytes % % Monocytes % % Eosinophils % % Basophils % % Neutrophils # (1.3-7.7) k/uL Lymphocytes # (1.0-4.8) k/uL Monocytes # (0-1.0) k/uL Eosinophils # (0-0.7) k/uL Basophils # (0-0.2) k/uL Hypochromasia Anisocytosis Macrocytosis PT (9.0-12.0) sec INR (<1.1) APTT (22.0-30.0) sec Sodium 143 (137-145) mmol/L Potassium 4.9 (3.5-5.1) mmol/L Chloride 112 H (98-107) mmol/L Carbon Dioxide 23 (22-30) mmol/L Anion Gap 8 mmol/L BUN 11 (9-20) mg/dL Creatinine 0.79 (0.66-1.25) mg/dL Est GFR (MDRD) Af Amer >60 (>60 ml/min/1.73 sqM) Est GFR (MDRD) Non-Af >60 (>60 ml/min/1.73 sqM) Glucose 141 H (74-99) mg/dL Calcium 9.0 (8.4-10.2) mg/dL Magnesium 1.6 (1.6-2.3) mg/dL Total Bilirubin 1.0 (0.2-1.3) mg/dL AST 97 H (17-59) U/L ALT 95 H (21-72) U/L Alkaline Phosphatase 155 H (38-126) U/L Total Creatine Kinase 34 L (55-170) U/L CK-MB (CK-2) 0.5 (0.0-2.4) ng/mL CK-MB (CK-2) Rel Index 1.5 Troponin I 0.016 (0.000-0.034) ng/mL NT-Pro-B Natriuret Pep 2430 pg/mL Total Protein 7.1 (6.3-8.2) g/dL Albumin 3.6 (3.5-5.0) g/dL 10/13/16 10/13/16 Range/Units 10:40 10:40 WBC 10.1 (3.8-10.6) k/uL RBC 3.99 L (4.30-5.90) m/uL Hgb 11.8 L (13.0-17.5) gm/dL Hct 37.4 L (39.0-53.0) % MCV 93.9 (80.0-100.0) fL MCH 29.6 (25.0-35.0) pg MCHC 31.6 (31.0-37.0) g/dL RDW 18.1 H (11.5-15.5) % Plt Count 399 (150-450) k/uL Neutrophils % 54 % Lymphocytes % 35 % Monocytes % 5 % Eosinophils % 1 % Basophils % 0 % Neutrophils # 5.5 (1.3-7.7) k/uL Lymphocytes # 3.6 (1.0-4.8) k/uL Monocytes # 0.5 (0-1.0) k/uL Eosinophils # 0.1 (0-0.7) k/uL Basophils # 0.0 (0-0.2) k/uL Hypochromasia Slight Anisocytosis Slight Macrocytosis Slight PT 11.7 (9.0-12.0) sec INR 1.2 (<1.1) APTT 25.2 (22.0-30.0) sec Sodium (137-145) mmol/L Potassium (3.5-5.1) mmol/L Chloride (98-107) mmol/L Carbon Dioxide (22-30) mmol/L Anion Gap mmol/L BUN (9-20) mg/dL Creatinine (0.66-1.25) mg/dL Est GFR (MDRD) Af Amer (>60 ml/min/1.73 sqM) Est GFR (MDRD) Non-Af (>60 ml/min/1.73 sqM) Glucose (74-99) mg/dL Calcium (8.4-10.2) mg/dL Magnesium (1.6-2.3) mg/dL Total Bilirubin (0.2-1.3) mg/dL AST (17-59) U/L ALT (21-72) U/L Alkaline Phosphatase (38-126) U/L Total Creatine Kinase (55-170) U/L CK-MB (CK-2) (0.0-2.4) ng/mL CK-MB (CK-2) Rel Index Troponin I (0.000-0.034) ng/mL NT-Pro-B Natriuret Pep pg/mL Total Protein (6.3-8.2) g/dL Albumin (3.5-5.0) g/dL Disposition Clinical Impression: Acute pulmonary edema, COPD with acute exacerbation Disposition: ADMITTED IP TO THIS [facility] Time of Disposition: 11:40
[2016-10-13 10:56] LABS: Anisocytosis Slight; Basophils % (A) 0 %; CH 29.4; CHCM 31.6; Eosinophils # (A) 0.1 k/uL (0-0.7); Eosinophils % (A) 1 %; HCT 37.4 % (39.0-53.0); HDW 3.12; HGB 11.8 gm/dL (13.0-17.5); Hypochromasia Slight; Luc # (Auto) 0.38; Luc % (Auto) 4; Lymphocytes # (A) 3.6 k/uL (1.0-4.8); Lymphocytes % (A) 35 %; MCH 29.6 pg (25.0-35.0); MCHC 31.6 g/dL (31.0-37.0); MCV 93.9 fL (80.0-100.0); Macrocytosis Slight; Mean Platelet Volume 6.5; Monocytes # (A) 0.5 k/uL (0-1.0); Monocytes % (A) 5 %; Neutrophils # (A) 5.5 k/uL (1.3-7.7); Neutrophils % (A) 54 %; RBC 3.99 m/uL (4.30-5.90); RDW 18.1 % (11.5-15.5); WBC 10.1 k/uL (3.8-10.6); WBC (Perox) 9.61
[2016-10-13 11:01] LABS: ALT 95 U/L (21-72); AST 97 U/L (17-59); Alkaline Phosphatase 155 U/L (38-126); Anion Gap 8 mmol/L; Blood Urea Nitrogen 11 mg/dL (9-20); Carbon Dioxide 23 mmol/L (22-30); Chloride 112 mmol/L (98-107); Glucose 141 mg/dL (74-99); Magnesium 1.6 mg/dL (1.6-2.3); Non-African American GFR(MDRD) >60 (>60 ml/min/1.73 sqM); Sodium 143 mmol/L (137-145); Total Protein 7.1 g/dL (6.3-8.2)
[2016-10-13 11:07] LABS: INR 1.2 (<1.1); Partial Thromboplastin Time 25.2 sec (22.0-30.0); Potassium 4.9 mmol/L (3.5-5.1); Prothrombin Time 11.7 sec (9.0-12.0)
--- NOTE | 2016-10-13 11:07 | XR ---
EXAMINATION TYPE: XR chest 1V portable DATE OF EXAM: 10/13/2016 11:00 AM COMPARISON: Chest x-ray September 25, 2016. HISTORY: Chest pain and shortness of breath. History of atrial fibrillation and sarcoid. TECHNIQUE: Single AP portable frontal upright view of the chest is obtained. FINDINGS: There is chronic parenchymal change bilaterally. There is increased interstitial opacities and Cony B lines in the periphery of both lungs. No large pleural effusion or pneumothorax is seen bilaterally. Patchy medial bibasilar atelectasis and/or infiltrate is noted. The cardiac silhouette size is now enlarged with prominent right heart border suggesting right atrial dilatation. The osse ous structures are intact. IMPRESSION: Suspect CHF exacerbation as there is more prominent cardiomegaly with mild to moderate i nterstitial edema felt present. Background of chronic interstitial changes or fibrosis is likely. New patchy medial bibasilar atelectasis and/or infiltrate is noted. Consider progress study.
[2016-10-13 11:23] LABS: Creatine Kinase MB 0.5 ng/mL (0.0-2.4); Troponin I 0.016 ng/mL (0.000-0.034)
[2016-10-13] MEDS ORDERED: FUROSEMIDE 10 MG/ML 2 ML VIAL IV ONE (11:31)
[2016-10-13] MEDS: methylPREDNISolone SOD SUCCI 125 MG/2 ML VIAL IV SCH ×3 (12:18→23:18)
[2016-10-13] MEDS: IPRATROPIUM-ALBUTEROL 3 ML NEB INHALATION PRN (14:06)
[2016-10-13] MEDS ORDERED: FUROSEMIDE 10 MG/ML 2 ML VIAL IV SCH (16:00)
[2016-10-13] MEDS: PARoxetine 20 MG TAB PO SCH (17:03)
[2016-10-13 17:13] LABS: Glucose,Whole Blood 147 mg/dL (75-99)
[2016-10-13] MEDS ORDERED: LORazepam 2 MG/ML SYRINGE IV PRN (17:27)
[2016-10-13] MEDS ORDERED: RX INFO: IV CONTRAST WAS GIVEN 1 EACH MISC MISCELLANE PRN (18:25)
[2016-10-13] MEDS: INSULIN LISPRO (humaLOG) 300 UNIT/3 ML VIAL SQ SCH ×2 (18:32→21:26)
--- NOTE | 2016-10-13 19:23 | CT ---
EXAMINATION TYPE: CT angio chest DATE OF EXAM: 10/13/2016 7:13 PM COMPARISON: Chest x-ray earlier today HISTORY: Shortness of breath rule out pulmonary embolism CT DLP: 587 mGycm. Automated Exposure Control for Dose Reduction was Utilized. CONTRAST: CTA scan of the thorax is performed with IV Contrast, patient injected with 100 mL of Omnipaque 350, pulmonary embolism protocol. MIP Images are created on CT scanner and reviewed. FINDINGS: LUNGS: Exam is suboptimal due to respiratory motion artifact. There is mild to moderate underlying em physematous change. There are small to moderate-sized bilateral pleural effusions present bilaterally . There is diffuse groundglass opacity seen bilaterally with mild interstitial prominence centrally, suspected mild alveolar and interstitial edema. There is minimal compressive atelectasis in both base s. No concerning parenchymal nodule or mass is present bilaterally. MEDIASTINUM: There is satisfactory enhancement of the pulmonary artery and its branches, there is no CT evidence for pulmonary embolism. There are no greater than 1 cm hilar or mediastinal lymph nodes. There are subcentimeter lymph nodes prevascular and paratracheal region No pericardial effusion is seen. Heart size is mildly enlarged. There is mild to borderline moderate left atrial and left ventri cular dilatation. Some reflux of contrast into IVC and hepatic veins is seen. Main pulmonary artery m easures 3.2 cm diameter on axial image 69. CT findings suggesting underlying pulmonary artery hyperte nsion. Adjacent ascending aorta measures 3.6 cm in diameter. There is greater than 1 cm right thyroid nodule lower pole level with substernal extension, this is noted thyroid ultrasound March 24, 2016 . OTHER: Cholecystectomy clips are present. Spine is straightened. IMPRESSION: 1. No CT evidence for pulmonary embolism. 2. Suspect CHF exacerbation as there is mild cardiomegaly with small to moderate-sized bilateral pleu ral effusions and mild bilateral alveolar and interstitial edema felt present. Clinical correlation a dvised. 3. Persistent 3 to 4 cm lower pole level right thyroid solid nodule, need to further investigate by u ltrasound guided fine-needle aspiration should be based on clinical correlation.
[2016-10-13] MEDS: DILTIAZEM 125 MG in SODIUM CHLORIDE 0.9% 100 ML IV SCH (20:26)
[2016-10-13] MEDS: HYDROmorphone 1 MG/ML 1 ML SYRINGE IVP PRN (21:08)
[2016-10-13] MEDS: FUROSEMIDE 10 MG/ML 10 ML VIAL IV SCH (21:08)
[2016-10-13] MEDS: RIVAROXABAN 10 MG TAB PO SCH (21:09)
[2016-10-13 21:27] LABS: Glucose,Whole Blood 189 mg/dL (75-99)
[2016-10-14] MEDS: HYDROmorphone 1 MG/ML 1 ML SYRINGE IVP PRN ×2 (01:06→05:02)
[2016-10-14 06:34] LABS: Glucose,Whole Blood 182 mg/dL (75-99)
[2016-10-14] MEDS: methylPREDNISolone SOD SUCCI 125 MG/2 ML VIAL IV SCH ×3 (06:40→17:30)
[2016-10-14] MEDS: INSULIN LISPRO (humaLOG) 300 UNIT/3 ML VIAL SQ SCH ×4 (06:41→22:20)
[2016-10-14] MEDS: FUROSEMIDE 10 MG/ML 10 ML VIAL IV SCH ×2 (08:13→20:37)
[2016-10-14] MEDS: PARoxetine 20 MG TAB PO SCH (08:13)
[2016-10-14] MEDS: DILTIAZEM 125 MG in SODIUM CHLORIDE 0.9% 100 ML IV SCH (08:14)
[2016-10-14] MEDS: PRIMIDONE 50 MG TAB PO SCH (08:14)
--- NOTE | 2016-10-14 08:35 | HP ---
DATE OF ADMISSION: 10/13/2016 CHIEF COMPLAINT: Difficulty breathing. HISTORY OF PRESENT ILLNESS: This is another admission for this 51-year-old white male. Difficult to get history on because he is very short of breath and he is on a BiPAP right now. He has a history of congestive heart failure. He has been having difficulty apparently for the last 2 or 3 years. He also has a history of intermittent atrial fibrillation and hyperthyroidism. When asked why he has been told that he has congestive heart failure, he states that he is not sure, but he was told it might be related to thyroid problem. He presented to the emergency room with extreme dyspnea and was admitted. He denies any fever, chills, sputum production, significant chest pain, hemoptysis, etc. He has never had a history of pulmonary embolism. He has had no swelling in either leg. REVIEW OF SYSTEMS: He has had no neurologic problems, blackouts, difficulty with vision or hearing, other lung disease including asthma, rheumatic heart disease, murmurs, congenital heart disease, etc. It is not clear how often and for what period time he has been in atrial fibrillation and that this could be a resultant factor in cardiomyopathy. He has had no abdominal pain, nausea, vomiting, melena, hematochezia, etc. It is also not known if this could be related to alcoholism, but it sounds as though he may over indulge in alcohol. He does not smoke. Past medical history, family history and personal and social histories ( ) he is not allergic to any medication. Apparently the only surgery he has had is cholecystectomy and removal of melanoma from his right groin. MEDICATIONS INCLUDE: 1. Xarelto. 2. Propylthiouracil. 3. Inderal. 4. Primidone. 5. Paxil. 6. Pulmicort. 7. Updrafts. PHYSICAL EXAMINATION: VITAL SIGNS: Blood pressure 142/98 with a pulse of 106 and regular, respirations 32. He is afebrile. GENERAL: Appeared to be dyspneic and very short of breath on BiPAP. HEENT: Head, ears, eyes, nose, mouth, and throat are otherwise grossly normal. NECK: Neck veins not distended. CHEST: Chest demonstrated decreased breath sounds with scattered rales throughout. Cardiac exam demonstrated tachycardia. There is no definite murmur or extra sounds. ABDOMEN: Soft, slightly protuberant and there may be a small amount of ascites. EXTREMITIES: Normal except for peripheral cyanosis. NEUROLOGIC: Intact. He was admitted to the hospital with diagnoses: 1. Congestive heart failure. 2. History of melanoma. 3. History of intermittent atrial fibrillation. 4. History of hyperthyroidism. 5. Chronic obstructive pulmonary disease. 6. Depression. 7. Possible seizure disorder. PLAN: 1. Bed rest. 2. IV fluids. 3. Updrafts. 4. D-dimer. 5. Diuresis. 6. Consult cardiology.
[2016-10-14] MEDS: HYDROcodone/APAP 5-325MG 1 EACH TAB PO PRN ×3 (08:41→20:41)
[2016-10-14] MEDS: IPRATROPIUM-ALBUTEROL 3 ML NEB INHALATION PRN ×3 (08:53→20:53)
[2016-10-14] MEDS ORDERED: METOPROLOL TARTRATE 25 MG TAB PO SCH (09:00)
[2016-10-14] MEDS: TIOTROPIUM 18 MCG/PUFF INHALER INHALATION SCH (09:06)
[2016-10-14] MEDS ORDERED: METOPROLOL TARTRATE 25 MG TAB PO ONE (09:49)
--- NOTE | 2016-10-14 09:49 | P.CRDCN ---
History of Present Illness Consult date: 10/14/16 Chief complaint: Shortness of breath History of present illness: This is a pleasant 51-year-old gentleman who sees Dr. Quick in the office with a past medical history significant for paroxysmal atrial fibrillation and congestive heart failure secondary to diastolic dysfunction as well as history of thyroid disorder where he was diagnosed with Graves' disease presented back to the hospital complaining of shortness of breath. The patient just was discharged from the hospital a few days ago when he was admitted was A. fib with RVR. He was diagnosed recently with Graves' disease and he is supposed to be started on medications for that but unfortunately that did not happen. This time he has been experiencing progressive exertional dyspnea with orthopnea and also was PND. No bilateral lower extremities edema. Also he noticed his heart was racing. No dizziness or lightheadedness. The patient was found to be in A. fib with RVR and he was started on Cardizem and drip. The chest x-ray showed findings consistent with CHF. The BNP came in to be elevated and more than 2000. The patient was started on Cardizem IV as well as on heparin IV. He just underwent an echocardiogram recently and that showed normal LV function without any significant valvular abnormalities. Past Medical History Past Medical History: Atrial Fibrillation, Atrial Flutter, Cancer, Heart Failure , COPD, Hyperlipidemia, Hypertension, Pneumonia, Pulmonary Embolus (PE), Thyroid Disorder Additional Past Medical History / Comment(s): Pt recently admitted to [facility] on with afib RVR and hyperparathyroidism. Other hx: Paroxysmal A flutter, CHF, cardiomyopathy with an ejection fraction of 40%, tremors, pulmonary embolism 04/22/2016, squamous cell skin cancer with removal. History of Any Multi-Drug Resistant Organisms: None Reported Past Surgical History: Adenoidectomy, Cholecystectomy, Tonsillectomy Additional Past Surgical History / Comment(s): RT HAND SX (TENDON REPAIR).RT THIGH SKIN LESION EXCISION(SQUAMOUS CELL CARCINOMA) Past Anesthesia/Blood Transfusion Reactions: No Reported Reaction Past Psychological History: Anxiety Additional Psychological History / Comment(s): Pt resides with his brother. He is independent. Smoking Status: Former smoker Past Alcohol Use History: Occasional Additional Past Alcohol Use History / Comment(s): STARTED SMOKING 1983, quit 2013 Past Drug Use History: None Reported - Past Family History Mother Family Medical History: Cancer, Coronary Artery Disease (CAD) Additional Family Medical History / Comment(s): Mother had throat cancer and of this at the age of 68yrs. Father Additional Family Medical History / Comment(s): IN [place] WHEN PT WAS 1 YEARS OLD. Medications and Allergies Home Medications Medication Instructions Recorded Confirmed Type Primidone 50 mg PO DAILY 07/10/15 10/13/16 History Albuterol Inhaler [Ventolin Hfa 2 puff INHALATION RT-Q4H PRN 09/25/16 10/13/16 History Inhaler] Albuterol Nebulized [Ventolin 2.5 mg INHALATION RT-TID 09/25/16 10/13/16 History Nebulized] Budesonide [Pulmicort Flexhaler] 1 puff INHALATION RT-BID 09/25/16 10/13/16 History PARoxetine HCL [Paxil] 40 mg PO DAILY 09/25/16 10/13/16 History Rivaroxaban [Xarelto] 20 mg PO HS 09/25/16 10/13/16 History Tiotropium 18 Mcg/Puff [Spiriva] 1 cap INHALATION RT-DAILY 09/25/16 10/13/16 History Allergies Allergy/AdvReac Type Severity Reaction Status Date / Time warfarin [From Coumadin] AdvReac MAKES Verified 10/13/16 11:39 BLOOD TOO THIN Physical Exam Vitals: Vital Signs Temp Pulse Pulse Resp BP BP Pulse Ox 10/14/16 08:53 84 10/14/16 08:00 97.4 F L 117 H 20 127/78 96 10/14/16 03:49 122 H 24 10/14/16 03:48 96.9 F L 122 H 24 117/79 100 10/13/16 23:47 75 26 H 10/13/16 23:05 75 26 H 125/70 100 10/13/16 22:27 95 10/13/16 20:00 96.7 F L 159 H 25 H 132/98 100 10/13/16 19:16 112 H 30 H 100 10/13/16 15:51 96.7 F L 112 H 32 H 142/98 100 10/13/16 15:00 96.7 F L 112 H 32 H 142/98 100 10/13/16 14:16 105 H 10/13/16 14:06 110 H 10/13/16 14:02 97.8 F 114 H 26 H 162/98 100 10/13/16 13:09 102 H 26 H 128/72 100 10/13/16 12:30 100 96 10/13/16 12:19 97.8 F 100 26 H 126/86 98 Intake and Output 10/13/16 10/14/16 10/14/16 22:59 06:59 14:59 Intake Total 0 40 236 Output Total 400 425 225 Balance -400 -385 11 Intake: IV 40 0.9 40 Oral 0 236 Output: Urine 400 425 225 Other: # Voids 1 Weight 72.6 kg - Constitutional General appearance: no acute distress - Respiratory Respiratory: bilateral: CTA - Cardiovascular Rhythm: irregularly irregular Results 10/13/16 10:40 10/13/16 10:40 Current Medications Generic Name Dose Route Start Last Admin Trade Name Freq PRN Reason Stop Dose Admin Hydrocodone Bitart/Acetaminophen 1 each 10/14/16 08:34 10/14/16 08:41 [place] 5-325 PO 1 each Q6HR PRN Administration Pain Albuterol/Ipratropium 3 ml 10/13/16 11:40 10/14/16 08:53 Duoneb 0.5 Mg-3 Mg/3 Ml Soln INHALATION 3 ml RT-Q4H PRN Administration Shortness Of Breath Or Wheezing Furosemide 80 mg 10/13/16 21:00 10/14/16 08:13 Lasix IV 80 mg Q12HR RENZO Administration Hydromorphone HCl 1 mg 10/13/16 20:33 10/14/16 05:02 Dilaudid IVP 1 mg Q4HR PRN Administration Pain Diltiazem HCl 125 mg/ Sodium 125 mls @ 10 mls/hr 10/13/16 20:15 10/14/16 08: 14 Chloride IV Not Given .[id number] RENZO Protocol 10 MG/HR Insulin Human Lispro 0 unit 10/13/16 17:30 10/14/16 06:41 Humalog SQ 4 unit ACHS RENZO Administration Protocol Lorazepam 1 mg 10/13/16 17:27 10/13/16 18:41 Ativan IV 1 mg Q6HR PRN Administration Anxiety Methylprednisolone Sodium Succinate 60 mg 10/13/16 12:00 10/14/16 06:40 Solu-Medrol IV 60 mg Q6HR RENZO Administration Metoprolol Tartrate 25 mg 10/14/16 09:00 10/14/16 08:13 Lopressor PO 25 mg BID RENZO Administration Miscellaneous Information 1 each 10/13/16 18:25 Rx Info: Iv Contrast Was Given MISCELLANE 10/15/16 18:27 DAILY PRN Per Protocol Paroxetine HCl 40 mg 10/13/16 16:15 10/14/16 08:13 Paxil PO 40 mg DAILY RENZO Administration Primidone 50 mg 10/14/16 09:00 10/14/16 08:14 [place] PO 50 mg DAILY RENZO Administration Rivaroxaban 20 mg 10/13/16 21:00 10/13/16 21:09 Xarelto PO 20 mg HS RENZO Administration Tiotropium [place] 1 puff 10/14/16 08:00 10/14/16 09:06 Spiriva INHALATION 1 puff RT-DAILY RENZO Administration Intake and Output 10/13/16 10/14/16 10/14/16 22:59 06:59 14:59 Intake Total 0 40 236 Output Total 400 425 225 Balance -400 -385 11 Intake: IV 40 0.9 40 Oral 0 236 Output: Urine 400 425 225 Other: # Voids 1 Weight 72.6 kg Assessment and Plan Plan: Assessment #1 congestive heart failure exacerbation secondary to diastolic dysfunction and triggered by hyperthyroidism #2 A. fib with RVR likely to be triggered also by hyperthyroidism #3 Graves' disease #4 hypertension Plan #1 uncontrolled the Graves' disease #2 continue the Lasix IV with monitoring the kidney function and electrolytes #3 continue the Cardizem IV and titrated that for the heart rate #4 I would increase the dose of metoprolol for heart rate control #5 follow-up with the patient
[2016-10-14 11:31] LABS: Glucose,Whole Blood 351 mg/dL (75-99)
--- NOTE | 2016-10-14 14:55 | P.CNPUL ---
History of Present Illness Consult date: 10/14/16 Requesting physician: Brian Rae Reason for consult: COPD Chief complaint: Shortness of breath History of present illness: This is a 51-year-old male patient being evaluated and examined today on the sixth floor. She came into the emergency room with some severe dyspnea. The patient's shortness of breath had been getting worse over the last few days and breathing treatments were not helping. The patient does not use home oxygen. The patient does have a history of COPD, proximal atrial fibrillation, hyperthyroidism, hypertension, pulmonary embolism in 2016, cardiomyopathy, depression and squamous cell carcinoma. A CTA was completed on 10/13/2016 which no pulmonary embolism was present, suspect CHF exacerbation as well as a persistent 3-4 cm lower pole level right thyroid solid nodule. Upon examination patient is resting up in bed on 4 L of supplemental oxygen. The patient does become short of breath with exertion or any extensive conversation. Patient states he feels very congested however he is unable to bring up any sputum with coughing. Review of Systems 14 point review of systems was completed and is negative other than what's noted in the HPI. Past Medical History Past Medical History: Atrial Fibrillation, Atrial Flutter, Cancer, Heart Failure , COPD, Hyperlipidemia, Hypertension, Pneumonia, Pulmonary Embolus (PE), Thyroid Disorder Additional Past Medical History / Comment(s): Pt recently admitted to [facility] on with afib RVR and hyperparathyroidism. Other hx: Paroxysmal A flutter, CHF, cardiomyopathy with an ejection fraction of 40%, tremors, pulmonary embolism 04/22/2016, squamous cell skin cancer with removal. History of Any Multi-Drug Resistant Organisms: None Reported Past Surgical History: Adenoidectomy, Cholecystectomy, Tonsillectomy Additional Past Surgical History / Comment(s): RT HAND SX (TENDON REPAIR).RT THIGH SKIN LESION EXCISION(SQUAMOUS CELL CARCINOMA) Past Anesthesia/Blood Transfusion Reactions: No Reported Reaction Past Psychological History: Anxiety Additional Psychological History / Comment(s): Pt resides with his brother. He is independent. Smoking Status: Former smoker Past Alcohol Use History: Occasional Additional Past Alcohol Use History / Comment(s): STARTED SMOKING 1983, quit 2013 Past Drug Use History: None Reported - Past Family History Mother Family Medical History: Cancer, Coronary Artery Disease (CAD) Additional Family Medical History / Comment(s): Mother had throat cancer and of this at the age of 68yrs. Father Additional Family Medical History / Comment(s): IN [place] WHEN PT WAS 1 YEARS OLD. Medications and Allergies Home Medications Medication Instructions Recorded Confirmed Type Primidone 50 mg PO DAILY 07/10/15 10/13/16 History Albuterol Inhaler [Ventolin Hfa 2 puff INHALATION RT-Q4H PRN 09/25/16 10/13/16 History Inhaler] Albuterol Nebulized [Ventolin 2.5 mg INHALATION RT-TID 09/25/16 10/13/16 History Nebulized] Budesonide [Pulmicort Flexhaler] 1 puff INHALATION RT-BID 09/25/16 10/13/16 History PARoxetine HCL [Paxil] 40 mg PO DAILY 09/25/16 10/13/16 History Rivaroxaban [Xarelto] 20 mg PO HS 09/25/16 10/13/16 History Tiotropium 18 Mcg/Puff [Spiriva] 1 cap INHALATION RT-DAILY 09/25/16 10/13/16 History Allergies Allergy/AdvReac Type Severity Reaction Status Date / Time warfarin [From Coumadin] AdvReac MAKES Verified 10/13/16 11:39 BLOOD TOO THIN Physical Exam Vitals: Vital Signs Temp Pulse Pulse Resp BP Pulse Ox 10/14/16 12:41 84 10/14/16 12:32 80 10/14/16 12:25 18 97 10/14/16 11:47 97.6 F 82 18 113/72 98 10/14/16 09:00 88 10/14/16 08:53 84 10/14/16 08:00 97.4 F L 117 H 20 127/78 96 10/14/16 03:49 122 H 24 10/14/16 03:48 96.9 F L 122 H 24 117/79 100 10/13/16 23:47 75 26 H 10/13/16 23:05 75 26 H 125/70 100 10/13/16 22:27 95 10/13/16 20:00 96.7 F L 159 H 25 H 132/98 100 10/13/16 19:16 112 H 30 H 100 10/13/16 15:51 96.7 F L 112 H 32 H 142/98 100 10/13/16 15:00 96.7 F L 112 H 32 H 142/98 100 Intake and Output 10/13/16 10/14/16 10/14/16 22:59 06:59 14:59 Intake Total 0 40 1280 Output Total 599 321 7276 Balance -400 -385 -45 Intake: IV 40 0.9 40 Oral 0 1280 Output: Urine 196 258 5205 Other: # Voids 1 Weight 72.6 kg GENERAL EXAM: Alert, comfortable in no apparent distress. HEAD: Normocephalic. EYES: Normal reaction of pupils, equal size. NOSE: Clear with pink turbinates. THROAT: No erythema or exudates. NECK: No masses, no JVD. CHEST: No chest wall deformity. LUNGS: Equal air entry , decreased, scattered rales. CVS: S1 and S2 normal with no audible mumurs, tachycardic ABDOMEN: No hepatosplenomegaly, normal bowel sounds, no guarding or rigidity. EXTREMITIES: No edema noted, pedal pulses palpable. SKIN: No rashes CENTRAL NERVOUS SYSTEM: No focal deficits, tone is normal in all 4 extremities. Results - Laboratory Findings CBC and BMP: 10/13/16 10:40 10/13/16 10:40 PT/INR, D-dimer PT 11.7 sec (9.0-12.0) 10/13/16 10:40 INR 1.2 (<1.1) 10/13/16 10:40 D-Dimer 6.37 mg/L FEU (<0.60) H 10/13/16 17:37 Abnormal lab findings: Abnormal Labs 10/13/16 10/13/16 10/13/16 17:11 17:37 17:37 D-Dimer 6.37 H POC Glucose (mg/dL) 147 H Free T4 3.67 H 10/13/16 10/14/16 10/14/16 21:14 06:31 11:29 D-Dimer POC Glucose (mg/dL) 189 H 182 H 351 H Free T4 - Diagnostic Findings Chest x-ray: report reviewed, image reviewed CT scan - chest: report reviewed, image reviewed Assessment and Plan Plan: Assessment Acute exacerbation of COPD Acute pulmonary edema Congestive heart failure Paroxysmal atrial fibrillation History of pulmonary embolism History of squamous cell carcinoma History of hypertension History of hyperthyroidism History of depression Plan Medications have been reviewed and will be continued as ordered. We will add budesonide to his current nebulizer treatments. His d-dimer has been elevated however his CTA was negative for PE. She will continue with IV Lasix at this time as well as IV steroids. We will also add Mucinex to help with secretions. We will obtain a sputum culture. Incentive spirometer will be initiated and encouraged. We will continue with pulmonary hygiene, supplemental oxygen and supportive care. We will continue to monitor labs/results and adjust treatment as necessary. I performed an examination of the patient and discussed their management with the nurse practitioner. I have reviewed the nurse practitioner's note and agree with the documented findings and plan of care.
[2016-10-14] MEDS: guaiFENesin 600 MG TABLET.ER PO SCH ×2 (15:18→20:37)
[2016-10-14 15:25] VITALS: BMI 24.3
--- NOTE | 2016-10-14 15:56 | PN ---
DATE OF SERVICE: 10/14/2016 CHIEF COMPLAINT: Shortness of breath. HISTORY OF PRESENT ILLNESS: This gentleman is doing a little bit better. He is much less short of breath. PHYSICAL EXAMINATION: Chest demonstrates poor breath sounds throughout with occasional rales. Cardiac exam demonstrates atrial fibrillation. The abdomen is soft, nontender. IMPRESSION: 1. Atrial fibrillation. 2. Exacerbation of chronic obstructive pulmonary disease. 3. Possible congestive heart failure. 4. History of alcohol abuse. PLAN: Await results of echocardiogram and continue to monitor his respirations and heart rhythm.
[2016-10-14 16:33] LABS: Glucose,Whole Blood 186 mg/dL (75-99)
[2016-10-14] MEDS: RIVAROXABAN 10 MG TAB PO SCH (20:37)
[2016-10-14] MEDS: METOPROLOL TARTRATE 50 MG TAB PO SCH (20:40)
[2016-10-14] MEDS: METHIMAZOLE 5 MG TAB PO SCH (20:41)
[2016-10-14] MEDS: BUDESONIDE 0.5 MG/2 ML NEBU INHALATION SCH (20:53)
[2016-10-14 20:58] LABS: Glucose,Whole Blood 254 mg/dL (75-99)
[2016-10-14 22:09] LABS: Glucose,Whole Blood 296 mg/dL (75-99)
[2016-10-15] MEDS: HYDROcodone/APAP 5-325MG 1 EACH TAB PO PRN ×2 (03:04→20:17)
[2016-10-15 06:06] LABS: Glucose,Whole Blood 191 mg/dL (75-99)
[2016-10-15] MEDS: INSULIN LISPRO (humaLOG) 300 UNIT/3 ML VIAL SQ SCH ×2 (06:39→12:58)
[2016-10-15] MEDS: TIOTROPIUM 18 MCG/PUFF INHALER INHALATION SCH (08:23)
[2016-10-15] MEDS: IPRATROPIUM-ALBUTEROL 3 ML NEB INHALATION PRN ×3 (08:23→19:51)
[2016-10-15] MEDS: BUDESONIDE 0.5 MG/2 ML NEBU INHALATION SCH ×2 (08:23→19:51)
[2016-10-15] MEDS: FUROSEMIDE 10 MG/ML 10 ML VIAL IV SCH ×2 (10:01→20:15)
[2016-10-15] MEDS: guaiFENesin 600 MG TABLET.ER PO SCH ×2 (10:01→20:15)
[2016-10-15] MEDS: PRIMIDONE 50 MG TAB PO SCH (10:02)
[2016-10-15] MEDS: METHIMAZOLE 5 MG TAB PO SCH ×2 (10:02→20:15)
[2016-10-15] MEDS: METOPROLOL TARTRATE 50 MG TAB PO SCH ×2 (10:02→20:15)
[2016-10-15] MEDS: PARoxetine 20 MG TAB PO SCH (10:02)
--- NOTE | 2016-10-15 11:17 | CDI ---
In responding to this query, please exercise your independent professional judgment. The [facility] Coding Staff and Clinical Documentation Specialists appreciate your assistance in clarifying documentation, maintaining compliance with coding guidelines, accurately documenting patients condition and capturing severity of illness. The fact that a question is asked does not imply that any particular answer is desired or expected. Communication forms are a method of clarifying documentation and are not made part of the Legal Health Record. Thank you in advance for your clarification. Last Revision, August 2015 [place] Freire [address] [place] [address] Documentation Clarification Form Date: 10/15/2016 10:49:00 AM From: Clotilde Modi RN, CDS Admit Date: 10/13/2016 11:40:00 AM Patient Name: Stone Law Visit Number: [id number] Joann Cabrales, The patient presented with shortness of breath, Respiration rate 30-36 in ED with accessory muscle use on BIPAP, Admitted for CHF, COPD Exacerbation, Paroxysmal A-fib Documentation and location in medical record included: History/Risk Factors: A-fib, CHF, Home oxygen: Does not use home O2 Clinical Indicators: CXR: suspect chf exacerbation, cardiomegaly with mild-mod interstitial edema felt present, fibrosis is likely new patchy atelectasis and/ or infiltrate Vital signs/Pulse oximetry: 95.3 127 36 163/113 110/BIPAP 50% Lung/Breathing assessment: decreased breath sounds with scattered rales, accessory muscle use on presentation to ED Treatment: IV Solumedrol, BIPAP, Non Rebreather mask weaned to 2L, Duoneb, O2: BIPAP/Non Rebreather/weaned to nasal cannula 2-4L In your professional opinion, can you please clarify if these findings signify one of the following conditions? Acuity: o Acute o Chronic o Acute on Chronic Respiratory Status: o Respiratory failure due to Acute Exacerbation of CHF o Respiratory failure with hypercapnia o Respiratory failure with hypoxia o Other Diagnosis, please specify o Unable to determine Please document in your progress notes and discharge summary in order to capture severity of illness and risk of mortality. Include clinical findings that support your diagnosis. FYI: Press F11 to launch patient chart. Place X here if this finding has no clinical significance, is not applicable or if you are not able to provide any additional documentation. MTDD
[2016-10-15 11:55] LABS: Glucose,Whole Blood 175 mg/dL (75-99)
[2016-10-15 11:57] LABS: Anion Gap 9 mmol/L; Blood Urea Nitrogen 34 mg/dL (9-20); Calcium 9.2 mg/dL (8.4-10.2); Carbon Dioxide 31 mmol/L (22-30); Chloride 99 mmol/L (98-107); Glucose 200 mg/dL (74-99); Non-African American GFR(MDRD) >60 (>60 ml/min/1.73 sqM); Sodium 139 mmol/L (137-145)
--- NOTE | 2016-10-15 13:20 | P.PN ---
Subjective This is a 51-year-old male patient being evaluated and examined today on the sixth floor. She came into the emergency room with some severe dyspnea. The patient's shortness of breath had been getting worse over the last few days and breathing treatments were not helping. The patient does not use home oxygen. The patient does have a history of COPD, proximal atrial fibrillation, hyperthyroidism, hypertension, pulmonary embolism in 2016, cardiomyopathy, depression and squamous cell carcinoma. A CTA was completed on 10/13/2016 which no pulmonary embolism was present, suspect CHF exacerbation as well as a persistent 3-4 cm lower pole level right thyroid solid nodule. Upon examination patient is resting up in bed on room air. Patient has less shortness of breath today than previously. Patient feels that his congestion is starting to clear up however has not subsided completely. He doesn't use oxygen when he starts to feel the shortness of breath. Objective - Vital Signs Vital signs: Vital Signs Temp 96.1 F L 10/15/16 12:00 Pulse 80 10/15/16 12:00 Resp 18 10/15/16 12:00 BP 115/67 10/15/16 12:00 Pulse Ox 94 L 10/15/16 12:00 Intake & Output 10/14/16 10/15/16 10/15/16 18:59 06:59 18:59 Intake Total 1540 30 180 Output Total 1725 Balance -185 30 180 Weight 72.6 kg 72.3 kg Intake: IV 30 0.9 30 Oral 1540 180 Output: Urine 1725 - Exam GENERAL EXAM: Alert, comfortable in no apparent distress. HEAD: Normocephalic. EYES: Normal reaction of pupils, equal size. NOSE: Clear with pink turbinates. THROAT: No erythema or exudates. NECK: No masses, no JVD. CHEST: No chest wall deformity. LUNGS: Equal air entry , decreased. CVS: S1 and S2 normal with no audible mumurs, tachycardic ABDOMEN: No hepatosplenomegaly, normal bowel sounds, no guarding or rigidity. EXTREMITIES: No edema noted, pedal pulses palpable. SKIN: No rashes CENTRAL NERVOUS SYSTEM: No focal deficits, tone is normal in all 4 extremities. - Labs CBC & Chem 7: 10/13/16 10:40 10/15/16 11:10 Labs: Abnormal Lab Results - Last 24 Hours (Table) 05/08/2810/14/16 10/14/16 Range/Units 16:32 20:57 22:08 Carbon Dioxide (22-30) mmol/L BUN (9-20) mg/dL Glucose (74-99) mg/dL POC Glucose (mg/dL) 186 H 254 H 296 H (75-99) mg/dL 10/15/16 10/15/16 10/15/16 Range/Units 06:04 11:10 11:41 Carbon Dioxide 31 H (22-30) mmol/L BUN 34 H (9-20) mg/dL Glucose 200 H (74-99) mg/dL POC Glucose (mg/dL) 191 H 175 H (75-99) mg/dL Assessment and Plan Plan: Assessment Acute respiratory failure due to acute exacerbation of CHF. Acute exacerbation of COPD Acute pulmonary edema Congestive heart failure Paroxysmal atrial fibrillation History of pulmonary embolism History of squamous cell carcinoma History of hypertension History of hyperthyroidism History of depression Plan Medications have been reviewed and will be continued as ordered. Patient needs to continue nebulizer treatments and use Proventil oxygen when short of breath to keep sats above 92%. Mucinex to help with secretions. We will obtain a sputum culture. Incentive spirometer will be initiated and encouraged. We will continue with pulmonary hygiene, supplemental oxygen and supportive care. We will continue to monitor labs/results and adjust treatment as necessary. I performed an examination of the patient and discussed their management with the nurse practitioner. I have reviewed the nurse practitioner's note and agree with the documented findings and plan of care.
--- NOTE | 2016-10-15 15:58 | P.PN ---
Subjective This is a pleasant 51-year-old gentleman who sees Dr. Quick in the office with a past medical history significant for paroxysmal atrial fibrillation and congestive heart failure secondary to diastolic dysfunction as well as history of thyroid disorder where he was diagnosed with Graves' disease presented back to the hospital complaining of shortness of breath.The patient just was discharged from the hospital a few days ago when he was admitted was A. fib with RVR. He was diagnosed recently with Graves' disease and he is supposed to be started on medications for that but unfortunately that did not happen.This time he has been experiencing progressive exertional dyspnea with orthopnea and also was PND. No bilateral lower extremities edema. Also he noticed his heart was racing. No dizziness or lightheadedness.The patient was found to be in A. fib with RVR and he was started on Cardizem and drip.The chest x-ray showed findings consistent with CHF. The BNP came in to be elevated and more than 2000. Patient was initiated on IV Lasix, diuresed well through the night last night. Continues to be in atrial fibrillation. Echo pending Objective - Vital Signs Vital signs: Vital Signs Temp 96.1 F L 10/15/16 12:00 Pulse 80 10/15/16 12:00 Resp 18 10/15/16 12:00 BP 115/67 10/15/16 12:00 Pulse Ox 94 L 10/15/16 12:00 Intake & Output 10/14/16 10/15/16 10/15/16 18:59 06:59 18:59 Intake Total 1540 30 420 Output Total 1725 Balance -185 30 420 Weight 72.6 kg 72.3 kg Intake: IV 30 0 0.9 30 0 Oral 1540 420 Output: Urine 1725 - Exam PHYSICAL EXAMINATION: HEENT: [Head is atraumatic, normocephalic. Pupils equal, round. Neck is supple. There is no elevated jugular venous pressure.] HEART EXAMINATION: S1 and S2 irregularly irregular CHEST EXAMINATION: Reveal fine rales to bilateral bases. ABDOMEN: [ Soft, nontender. Bowel sounds are heard. No organomegaly noted]. EXTREMITIES:[ 2+ peripheral pulses with no evidence of peripheral edema and no calf tenderness noted]. NEUROLOGIC [patient is awake, alert and oriented -3.] . - Labs CBC & Chem 7: 10/13/16 10:40 10/15/16 11:10 Labs: Abnormal Lab Results - Last 24 Hours (Table) 10/14/16 10/14/16 10/14/16 Range/Units 16:32 20:57 22:08 Carbon Dioxide (22-30) mmol/L BUN (9-20) mg/dL Glucose (74-99) mg/dL POC Glucose (mg/dL) 186 H 254 H 296 H (75-99) mg/dL 10/15/16 10/15/16 10/15/16 Range/Units 06:04 11:10 11:41 Carbon Dioxide 31 H (22-30) mmol/L BUN 34 H (9-20) mg/dL Glucose 200 H (74-99) mg/dL POC Glucose (mg/dL) 191 H 175 H (75-99) mg/dL Assessment and Plan (1) Diastolic CHF, acute on chronic Status: Acute (2) Graves disease Status: Acute (3) Paroxysmal a-fib Status: Acute Plan: Plan From a heart rate today is under much better control, in the 70s to 80s with a blood pressure of 115/60. We'll continue IV Lasix for another 24 hours, continue current dose of metoprolol tartrate. DNP note has been reviewed, I agree with a documented findings and plan of care. Patient was seen and examined.
[2016-10-15] MEDS: HYDROmorphone 1 MG/ML 1 ML SYRINGE IVP PRN (18:07)
[2016-10-15] MEDS: RIVAROXABAN 10 MG TAB PO SCH (20:15)
[2016-10-16] MEDS: HYDROmorphone 1 MG/ML 1 ML SYRINGE IVP PRN ×2 (02:47→08:06)
--- NOTE | 2016-10-16 07:02 | PN ---
CHIEF COMPLAINT: Shortness of breath, COPD, pulmonary edema and history of alcohol abuse. HISTORY OF PRESENT ILLNESS: This gentleman is breathing much better. He is much less anxious. Studies are pending. PHYSICAL EXAM: Chest is clear. Cardiac exam is unchanged. Abdomen is slightly protuberant and soft. IMPRESSION: 1. Exacerbation of chronic obstructive pulmonary disease. 2. Congestive heart failure. 3. Pulmonary edema. 4. History of alcohol abuse. PLAN: Continue diuresis with increasing activity ( ) plan.
[2016-10-16 07:33] LABS: Anion Gap 7 mmol/L; Blood Urea Nitrogen 35 mg/dL (9-20); Calcium 8.8 mg/dL (8.4-10.2); Carbon Dioxide 33 mmol/L (22-30); Chloride 101 mmol/L (98-107); Glucose 101 mg/dL (74-99); Non-African American GFR(MDRD) >60 (>60 ml/min/1.73 sqM); Potassium 4.1 mmol/L (3.5-5.1); Sodium 141 mmol/L (137-145)
[2016-10-16] MEDS: guaiFENesin 600 MG TABLET.ER PO SCH ×2 (08:07→21:00)
[2016-10-16] MEDS: FUROSEMIDE 10 MG/ML 10 ML VIAL IV SCH (08:07)
[2016-10-16] MEDS: PARoxetine 20 MG TAB PO SCH (08:08)
[2016-10-16] MEDS: METOPROLOL TARTRATE 50 MG TAB PO SCH ×2 (08:08→21:01)
[2016-10-16] MEDS: METHIMAZOLE 5 MG TAB PO SCH ×2 (08:08→21:01)
[2016-10-16] MEDS: PRIMIDONE 50 MG TAB PO SCH (08:08)
[2016-10-16] MEDS: BUDESONIDE 0.5 MG/2 ML NEBU INHALATION SCH ×2 (10:48→19:33)
[2016-10-16] MEDS: TIOTROPIUM 18 MCG/PUFF INHALER INHALATION SCH (10:49)
[2016-10-16] MEDS: HYDROcodone/APAP 5-325MG 1 EACH TAB PO PRN ×2 (11:48→18:50)
--- NOTE | 2016-10-16 13:35 | P.PN ---
Subjective This is a 51-year-old male patient being evaluated and examined today on the sixth floor. She came into the emergency room with some severe dyspnea. The patient's shortness of breath had been getting worse over the last few days and breathing treatments were not helping. The patient does not use home oxygen. The patient does have a history of COPD, proximal atrial fibrillation, hyperthyroidism, hypertension, pulmonary embolism in 2016, cardiomyopathy, depression and squamous cell carcinoma. A CTA was completed on 10/13/2016 which no pulmonary embolism was present, suspect CHF exacerbation as well as a persistent 3-4 cm lower pole level right thyroid solid nodule. Upon examination patient is resting up in bed on room air. Patient has less shortness of breath today than previously, hes breathing much better. Patient feels he is ready for discharge. Objective - Vital Signs Vital signs: Vital Signs Temp 97.2 F L 10/16/16 11:50 Pulse 56 L 10/16/16 11:50 Resp 16 10/16/16 11:50 BP 95/54 10/16/16 11:50 Pulse Ox 97 10/16/16 11:50 Intake & Output 10/15/16 10/16/16 10/16/16 18:59 06:59 18:59 Intake Total 660 40 402 Output Total 300 Balance 660 40 102 Weight 71.8 kg Intake: IV 0 40 0.9 0 40 Oral 660 402 Output: Urine 300 Other: # Voids 1 1 - Exam GENERAL EXAM: Alert, comfortable in no apparent distress. HEAD: Normocephalic. EYES: Normal reaction of pupils, equal size. NOSE: Clear with pink turbinates. THROAT: No erythema or exudates. NECK: No masses, no JVD. CHEST: No chest wall deformity. LUNGS: Equal air entry , decreased. CVS: S1 and S2 normal with no audible mumurs, tachycardic ABDOMEN: No hepatosplenomegaly, normal bowel sounds, no guarding or rigidity. EXTREMITIES: No edema noted, pedal pulses palpable. SKIN: No rashes CENTRAL NERVOUS SYSTEM: No focal deficits, tone is normal in all 4 extremities. - Labs CBC & Chem 7: 10/13/16 10:40 10/16/16 06:17 Labs: Abnormal Lab Results - Last 24 Hours (Table) 10/16/16 Range/Units 06:17 Carbon Dioxide 33 H (22-30) mmol/L BUN 35 H (9-20) mg/dL Glucose 101 H (74-99) mg/dL Assessment and Plan Plan: Assessment Acute respiratory failure due to acute exacerbation of CHF. Acute exacerbation of COPD Acute pulmonary edema Congestive heart failure Paroxysmal atrial fibrillation History of pulmonary embolism History of squamous cell carcinoma History of hypertension History of hyperthyroidism History of depression Plan Patient is stable from a pulmonary standpoint for discharge. Medications have been reviewed and will be continued as ordered. Patient needs to continue nebulizer treatments. Mucinex to help with secretions. Incentive spirometer will be initiated and encouraged. We will continue with pulmonary hygiene, supplemental oxygen and supportive care. We will continue to monitor labs/results and adjust treatment as necessary. I performed an examination of the patient and discussed their management with the nurse practitioner. I have reviewed the nurse practitioner's note and agree with the documented findings and plan of care.
--- NOTE | 2016-10-16 14:01 | PN ---
CHIEF COMPLAINT: Exacerbation of COPD, congestive heart failure and pulmonary edema. HISTORY OF PRESENT ILLNESS: This gentleman is doing well and it is thought that he might be able to be discharged today. PHYSICAL EXAM: Chest is clear. Cardiac exam is normal. ABDOMEN: Soft, nontender. IMPRESSION: 1. Chronic obstructive pulmonary disease. 2. Pulmonary edema. 3. History of alcoholism. PLAN: Possibly home today.
--- NOTE | 2016-10-16 14:42 | P.PN ---
Subjective Principal diagnosis: CHF/A. fib This is a pleasant 51-year-old gentleman with a past medical history significant for Graves' disease was not receiving any treatment was admitted to the hospital was acute on chronic respiratory failure secondary to CHF exacerbation as well as A. fib with RVR. The patient converted to normal sinus mechanism and he has been maintaining normal sinus mechanism. The shortness of breath is much better compared to before. I am going to decrease the dose of Lasix to 40 mg IV twice a day. He is on beta autumn as well as he is on anticoagulation and we will continue that. Objective - Vital Signs Vital signs: Vital Signs Temp 97.2 F L 10/16/16 11:50 Pulse 56 L 10/16/16 11:50 Resp 16 10/16/16 11:50 BP 95/54 10/16/16 11:50 Pulse Ox 97 10/16/16 11:50 Intake & Output 10/15/16 10/16/16 10/16/16 18:59 06:59 18:59 Intake Total 660 40 402 Output Total 300 Balance 660 40 102 Weight 71.8 kg Intake: IV 0 40 0.9 0 40 Oral 660 402 Output: Urine 300 Other: # Voids 1 1 - Constitutional General appearance: Present: no acute distress - Respiratory Respiratory: bilateral: CTA - Cardiovascular Rhythm: regular Heart sounds: normal: S1, S2 - Labs CBC & Chem 7: 10/13/16 10:40 10/16/16 06:17 Labs: Abnormal Lab Results - Last 24 Hours (Table) 10/16/16 Range/Units 06:17 Carbon Dioxide 33 H (22-30) mmol/L BUN 35 H (9-20) mg/dL Glucose 101 H (74-99) mg/dL Assessment and Plan Plan: Assessment #1 congestive heart failure exacerbation secondary to diastolic dysfunction and triggered by hyperthyroidism #2 A. fib with RVR likely to be triggered also by hyperthyroidism #3 Graves' disease #4 hypertension Plan #1 uncontrolled the Graves' disease #2 decrease the dose of Lasix IV #3 continue the metoprolol and anticoagulation
[2016-10-16] MEDS: IPRATROPIUM-ALBUTEROL 3 ML NEB INHALATION PRN ×2 (15:56→19:33)
[2016-10-16] MEDS: RIVAROXABAN 10 MG TAB PO SCH (21:01)
[2016-10-16] MEDS: FUROSEMIDE 10 MG/ML 4 ML VIAL IV SCH (21:02)
[2016-10-17] MEDS: HYDROcodone/APAP 5-325MG 1 EACH TAB PO PRN ×2 (03:32→11:13)
[2016-10-17 06:59] LABS: Carbon Dioxide 31 mmol/L (22-30); Glucose 95 mg/dL (74-99); Non-African American GFR(MDRD) >60 (>60 ml/min/1.73 sqM); Potassium 4.4 mmol/L (3.5-5.1); Sodium 139 mmol/L (137-145); Total Protein 7.1 g/dL (6.3-8.2)
[2016-10-17 07:01] LABS: ALT 97 U/L (21-72); AST 41 U/L (17-59); Alkaline Phosphatase 120 U/L (38-126); Blood Urea Nitrogen 37 mg/dL (9-20); Calcium 9.3 mg/dL (8.4-10.2); Total Bilirubin 0.9 mg/dL (0.2-1.3)
[2016-10-17 07:16] LABS: Anion Gap 9 mmol/L; Chloride 99 mmol/L (98-107)
[2016-10-17] MEDS: METHIMAZOLE 5 MG TAB PO SCH (08:06)
[2016-10-17] MEDS: PARoxetine 20 MG TAB PO SCH (08:06)
[2016-10-17] MEDS: METOPROLOL TARTRATE 50 MG TAB PO SCH (08:06)
[2016-10-17] MEDS: FUROSEMIDE 10 MG/ML 4 ML VIAL IV SCH ×2 (08:06→08:11)
[2016-10-17] MEDS: guaiFENesin 600 MG TABLET.ER PO SCH (08:06)
[2016-10-17] MEDS: PRIMIDONE 50 MG TAB PO SCH (08:07)
[2016-10-17 08:17] VITALS: RESP 16
[2016-10-17] MEDS: BUDESONIDE 0.5 MG/2 ML NEBU INHALATION SCH (10:01)
[2016-10-17] MEDS: TIOTROPIUM 18 MCG/PUFF INHALER INHALATION SCH (10:01)
[2016-10-17 11:32] VITALS: BP 90/50; TEMP 97.5
[2016-10-17] MEDS: IPRATROPIUM-ALBUTEROL 3 ML NEB INHALATION PRN (11:44)
[2016-10-17 11:47] VITALS: PULSE 64
--- NOTE | 2016-10-17 11:58 | P.PN ---
Subjective Principal diagnosis: CHF/A. fib This is a pleasant 51-year-old gentleman with a past medical history significant for Graves' disease was not receiving any treatment was admitted to the hospital was acute on chronic respiratory failure secondary to CHF exacerbation as well as A. fib with RVR. The patient converted to normal sinus mechanism and he has been maintaining normal sinus mechanism. The shortness of breath is much better compared to before. From the cardiovascular standpoint of view, the patient can be discharged home. I am going to switch him from Lasix IV to Lasix by mouth. He will follow-up with Dr. Dr. Quick as an outpatient. Objective - Vital Signs Vital signs: Vital Signs Temp 97.5 F L 10/17/16 11:31 Pulse 64 10/17/16 11:56 Resp 16 10/17/16 11:32 BP 90/50 10/17/16 11:31 Pulse Ox 99 10/17/16 11:31 Intake & Output 10/16/16 10/17/16 10/17/16 18:59 06:59 18:59 Intake Total 642 240 Output Total 2300 Balance -1658 240 Weight 72.2 kg Intake: Oral 642 240 Output: Urine 2300 Other: Voiding Method Toilet Toilet Toilet # Voids 1 1 - Constitutional General appearance: Present: no acute distress - Respiratory Respiratory: bilateral: CTA - Cardiovascular Rhythm: regular Heart sounds: normal: S1, S2 - Labs CBC & Chem 7: 10/13/16 10:40 10/17/16 06:25 Labs: Abnormal Lab Results - Last 24 Hours (Table) 10/17/16 Range/Units 06:25 Carbon Dioxide 31 H (22-30) mmol/L BUN 37 H (9-20) mg/dL ALT 97 H (21-72) U/L Microbiology - Last 24 Hours (Table) 10/16/16 15:09 Gram Stain - Preliminary Sputum Assessment and Plan Plan: Assessment #1 congestive heart failure exacerbation secondary to diastolic dysfunction and triggered by hyperthyroidism #2 A. fib with RVR likely to be triggered also by hyperthyroidism #3 Graves' disease #4 hypertension Plan #1 uncontrolled the Graves' disease #2 the patient can be discharged home
--- NOTE | 2016-10-17 13:00 | PN ---
CHIEF COMPLAINT: Congestive heart failure. HISTORY OF PRESENT ILLNESS: This gentleman is doing well. He has had no shortness of breath, orthopnea, PND, palpitations, etc. PHYSICAL EXAM: Chest is completely clear. Cardiac exam is normal. ABDOMEN: Soft and slightly distended. EXTREMITIES: Normal. IMPRESSION: 1. Congestive heart failure. 2. Chronic obstructive pulmonary disease. 3. Cirrhosis. 4. Alcoholism. PLAN: Probably home today.
--- NOTE | 2016-10-17 16:53 | PN ---
He was seen on 10/17/2016. He has been hemodynamically stable. He is less short of breath and is almost down to his baseline. On physical examination, his respiratory rate 16, pulse rate 61, temperature 97.5, blood pressure 90/50, O2 sat on room air is 99%. HEENT is unremarkable. Chest reveals prolonged expiration, faint wheeze only on forced expiration. Cardiovascular system reveals S1 and S2. Abdomen is soft. There is no pedal edema. IMPRESSION AT THIS TIME: 1. Severe chronic obstructive pulmonary disease with acute exacerbation. 2. Asthma. 3. Medical debility. Continue bronchodilators, aerosolized steroids. Increase activity level. Agree with discharge planning with close outpatient followup.
[2016-10-18] MEDS ORDERED: FUROSEMIDE 40 MG TAB PO SCH (09:00)
--- NOTE | 2016-10-18 20:44 | DS ---
DATE OF ADMISSION: 10/13/2016 DATE OF DISCHARGE: 10/17/2016 CHIEF COMPLAINT: Difficulty breathing. HISTORY OF PRESENT ILLNESS AND PHYSICAL EXAMINATION: The details of this man's history and physical can be found in the initial work-up. LABORATORY STUDIES: While he was in the hospital he had laboratory studies, the details of which can be found in the laboratory section of the chart. COURSE IN THE HOSPITAL: After admission, he was placed on bed rest and was treated with IV Lasix. He diuresed and improved. It was felt that he had congestive heart failure and anasarca, which could have been related to his alcoholism and cirrhosis. He also had chronic obstructive pulmonary disease. He steadily improved and it was felt that he could go home on the sixth. He will go home on his usual home medications includin. Spiriva. 2. Xarelto. 3. Primidone. 4. Paxil. 5. Updrafts with albuterol and Pulmicort. 6. He will also be placed on metoprolol 50 mg twice a day. 7. Tapazole 10 mg b.i.d. 8. [place] 5 q6 p.r.n. ( ) 20-0). 9. Lasix 40 mg b.i.d. He will follow-up in the office in several days. FINAL DIAGNOSES: 1. Acute congestive heart failure. 2. Exacerbation of chronic obstructive pulmonary disease. 3. Probable alcoholic cardiomyopathy. 4. Alcoholism. Operations: None. CONSULTATIONS: Cardiology. He is improved.
== END 2016-10-17 15:01 | disposition home or self-care (01) | DRG 291 ==
LOC: EC 10:31 → 6SEL 11:40
PROVIDERS: ADMIT Family Medicine; ATTEND Family Medicine
PROC: 5A09457 Assistance with Respiratory Ventilation, 24-96 Consecutive Hours, Continuous Positive Airway Pressure (ICD-10-PCS; principal; 2016-10-13)
DX: I11.0 Hypertensive heart disease with heart failure (principal); J96.00 Acute respiratory failure, unspecified whether with hypoxia or hypercapnia; J44.1 Chronic obstructive pulmonary disease with (acute) exacerbation; I48.92 Unspecified atrial flutter; I42.6 Alcoholic cardiomyopathy; K74.60 Unspecified cirrhosis of liver; I50.33 Acute on chronic diastolic (congestive) heart failure; E05.00 Thyrotoxicosis with diffuse goiter without thyrotoxic crisis or storm; E78.5 Hyperlipidemia, unspecified; F10.20 Alcohol dependence, uncomplicated; I48.0 Paroxysmal atrial fibrillation; E21.3 Hyperparathyroidism, unspecified; F32.9 Major depressive disorder, single episode, unspecified; F41.9 Anxiety disorder, unspecified; R25.1 Tremor, unspecified; Z79.01 Long term (current) use of anticoagulants; Z79.899 Other long term (current) drug therapy; Z85.828 Personal history of other malignant neoplasm of skin; Z87.891 Personal history of nicotine dependence; Z82.49 Family history of ischemic heart disease and other diseases of the circulatory system; Z88.8 Allergy status to other drugs, medicaments and biological substances
CPT/HCPCS: 36415; 71010; 71275; 80048; 80053; 82140; 82550; 82553; 83036; 83735; 83880; 84439; 84484; 85025; 85379; 85610; 85730; 87040; 87070; 87077; 87186; 87205; 93005; 94640; 94644; 94660; 96374; 96375; 96376; 99285

== ENCOUNTER 2016-10-26 10:56 | Inpatient (IN) | payer OTHER ==
--- NOTE | 2016-10-26 11:47 | ED ---
General Adult HPI - General Chief complaint: Arrhythmia/Palpitations Stated complaint: weakness,diff breathing Time Seen by Provider: 10/26/16 11:42 Source: patient, RN notes reviewed, old records reviewed Mode of arrival: ambulatory Limitations: no limitations - History of Present Illness Initial comments: This is a 51-year-old male who ER for evaluation of arrhythmia, palpitations and fast heart rate. Patient has history of DVT and PE is or from both ears. Patient states about taking her medications as prescribed. He states he also does suffer from Graves' disease and is currently starting treatment for Graves ' disease. Patient states he feels like he again his heart is racing his chest , denies any severe pain. No recent fevers - Related Data Home Medications Medication Instructions Recorded Confirmed Primidone 50 mg PO DAILY 07/10/15 10/26/16 Albuterol Inhaler [Ventolin Hfa 2 puff INHALATION RT-Q4H PRN 09/25/16 10/26/16 Inhaler] Albuterol Nebulized [Ventolin 2.5 mg INHALATION RT-TID 09/25/16 10/26/16 Nebulized] Budesonide [Pulmicort Flexhaler] 1 puff INHALATION RT-BID 09/25/16 10/26/16 PARoxetine HCL [Paxil] 40 mg PO DAILY 09/25/16 10/26/16 Rivaroxaban [Xarelto] 20 mg PO HS 09/25/16 10/26/16 Tiotropium 18 Mcg/Puff [Spiriva] 1 cap INHALATION RT-DAILY 09/25/16 10/26/16 Previous Rx's Medication Instructions Recorded Propranolol [Inderal] 30 mg PO TID #90 tab 09/26/16 Propylthiouracil 200 mg PO Q8H #15 tab 09/26/16 Allergies Allergy/AdvReac Type Severity Reaction Status Date / Time warfarin [From Coumadin] AdvReac MAKES Verified 10/26/16 12:29 BLOOD TOO THIN Review of Systems ROS Statement: Those systems with pertinent positive or pertinent negative responses have been documented in the HPI. ROS Other: All systems not noted in ROS Statement are negative. Past Medical History Past Medical History: Atrial Fibrillation, Atrial Flutter, Cancer, Heart Failure , COPD, Hyperlipidemia, Hypertension, Pneumonia, Pulmonary Embolus (PE), Thyroid Disorder Additional Past Medical History / Comment(s): Other hx: Paroxysmal A flutter, CHF, cardiomyopathy with an ejection fraction of 40%, tremors, pulmonary embolism 04/22/2016, squamous cell skin cancer with removal. History of Any Multi-Drug Resistant Organisms: MRSA Date of last positivie culture/infection: 10/16/16 MDRO Source:: SPUTUM Past Surgical History: Adenoidectomy, Cholecystectomy, Tonsillectomy Additional Past Surgical History / Comment(s): RT HAND SX (TENDON REPAIR).RT THIGH SKIN LESION EXCISION(SQUAMOUS CELL CARCINOMA) Past Anesthesia/Blood Transfusion Reactions: No Reported Reaction Past Psychological History: Anxiety Additional Psychological History / Comment(s): Pt resides with his brother. He is independent. Smoking Status: Former smoker Past Alcohol Use History: Occasional Additional Past Alcohol Use History / Comment(s): STARTED SMOKING 1983, quit 2013 Past Drug Use History: None Reported - Past Family History Mother Family Medical History: Cancer, Coronary Artery Disease (CAD) Additional Family Medical History / Comment(s): Mother had throat cancer and of this at the age of 68yrs. Father Additional Family Medical History / Comment(s): IN [place] WHEN PT WAS 1 YEARS OLD. General Exam Limitations: no limitations General appearance: alert, in no apparent distress, anxious Head exam: Present: atraumatic, normocephalic, normal inspection Eye exam: Present: normal appearance, PERRL, EOMI. Absent: scleral icterus, conjunctival injection, periorbital swelling ENT exam: Present: normal exam, mucous membranes moist Neck exam: Present: normal inspection. Absent: tenderness, meningismus, lymphadenopathy Respiratory exam: Present: normal lung sounds bilaterally. Absent: respiratory distress, wheezes, rales, rhonchi, stridor Cardiovascular Exam: Present: tachycardia, irregular rhythm, normal heart sounds. Absent: systolic murmur, diastolic murmur, rubs, gallop, clicks GI/Abdominal exam: Present: soft, normal bowel sounds. Absent: distended, tenderness, guarding, rebound, rigid Extremities exam: Present: normal inspection, full ROM, normal capillary refill. Absent: tenderness, pedal edema, joint swelling, calf tenderness Back exam: Present: normal inspection Neurological exam: Present: alert, oriented X3, CN II-XII intact Psychiatric exam: Present: normal affect, normal mood Skin exam: Present: warm, dry, intact, normal color. Absent: rash Course Vital Signs 10/26/16 10/26/16 11:26 12:46 Temperature 98.7 F Pulse Rate 118 H 127 H Respiratory 20 18 Rate Blood Pressure 101/93 120/82 O2 Sat by Pulse 95 99 Oximetry - Reevaluation(s) Reevaluation #1: 10/26/16 12:52 Patient remains to severely elevated heart rate, given Terazol, patient also will be added to take a beta autumn EKG Findings - EKG Comments: EKG Findings:: EKG shows A. fib with RVR rate 162, QRS 92, QTc 476 Medical Decision Making - Medical Decision Making 51 mailed ER for evaluation of severe shortness of breath, patient does have severe Graves' disease with severe A. fib with RVR, patient is improving with his rate control at this time. Patient also has troponin leak, will trend troponins. Patient is on anticoagulation with we will continue, and had rate control - Lab Data Result diagrams: 10/26/16 11:52 10/26/16 11:52 Lab Results 10/26/16 10/26/16 10/26/16 Range/Units 11:52 11:52 11:52 WBC 9.6 (3.8-10.6) k/uL RBC 4.15 L (4.30-5.90) m/uL Hgb 12.1 L (13.0-17.5) gm/dL Hct 37.4 L (39.0-53.0) % MCV 90.1 (80.0-100.0) fL MCH 29.2 (25.0-35.0) pg MCHC 32.4 (31.0-37.0) g/dL RDW 16.4 H (11.5-15.5) % Plt Count 222 (150-450) k/uL Neutrophils % 78 % Lymphocytes % 15 % Monocytes % 5 % Eosinophils % 0 % Basophils % 0 % Neutrophils # 7.6 (1.3-7.7) k/uL Lymphocytes # 1.4 (1.0-4.8) k/uL Monocytes # 0.5 (0-1.0) k/uL Eosinophils # 0.0 (0-0.7) k/uL Basophils # 0.0 (0-0.2) k/uL Anisocytosis Slight PT (9.0-12.0) sec INR (<1.1) APTT (22.0-30.0) sec Sodium 139 (137-145) mmol/L Potassium 3.8 (3.5-5.1) mmol/L Chloride 102 (98-107) mmol/L Carbon Dioxide 27 (22-30) mmol/L Anion Gap 10 mmol/L BUN 30 H (9-20) mg/dL Creatinine 0.99 (0.66-1.25) mg/dL Est GFR (MDRD) Af Amer >60 (>60 ml/min/1.73 sqM) Est GFR (MDRD) Non-Af >60 (>60 ml/min/1.73 sqM) Glucose 169 H (74-99) mg/dL Calcium 9.2 (8.4-10.2) mg/dL Phosphorus 3.5 (2.5-4.5) mg/dL Magnesium 1.6 (1.6-2.3) mg/dL Total Bilirubin 0.8 (0.2-1.3) mg/dL AST 82 H (17-59) U/L ALT 133 H (21-72) U/L Alkaline Phosphatase 174 H (38-126) U/L Total Creatine Kinase 41 L (55-170) U/L CK-MB (CK-2) 1.0 (0.0-2.4) ng/mL CK-MB (CK-2) Rel Index 2.4 Troponin I 0.050 H* (0.000-0.034) ng/mL Total Protein 7.1 (6.3-8.2) g/dL Albumin 3.8 (3.5-5.0) g/dL 10/26/16 Range/Units 11:52 WBC (3.8-10.6) k/uL RBC (4.30-5.90) m/uL Hgb (13.0-17.5) gm/dL Hct (39.0-53.0) % MCV (80.0-100.0) fL MCH (25.0-35.0) pg MCHC (31.0-37.0) g/dL RDW (11.5-15.5) % Plt Count (150-450) k/uL Neutrophils % % Lymphocytes % % Monocytes % % Eosinophils % % Basophils % % Neutrophils # (1.3-7.7) k/uL Lymphocytes # (1.0-4.8) k/uL Monocytes # (0-1.0) k/uL Eosinophils # (0-0.7) k/uL Basophils # (0-0.2) k/uL Anisocytosis PT 12.3 H (9.0-12.0) sec INR 1.2 (<1.1) APTT 25.7 (22.0-30.0) sec Sodium (137-145) mmol/L Potassium (3.5-5.1) mmol/L Chloride (98-107) mmol/L Carbon Dioxide (22-30) mmol/L Anion Gap mmol/L BUN (9-20) mg/dL Creatinine (0.66-1.25) mg/dL Est GFR (MDRD) Af Amer (>60 ml/min/1.73 sqM) Est GFR (MDRD) Non-Af (>60 ml/min/1.73 sqM) Glucose (74-99) mg/dL Calcium (8.4-10.2) mg/dL Phosphorus (2.5-4.5) mg/dL Magnesium (1.6-2.3) mg/dL Total Bilirubin (0.2-1.3) mg/dL AST (17-59) U/L ALT (21-72) U/L Alkaline Phosphatase (38-126) U/L Total Creatine Kinase (55-170) U/L CK-MB (CK-2) (0.0-2.4) ng/mL CK-MB (CK-2) Rel Index Troponin I (0.000-0.034) ng/mL Total Protein (6.3-8.2) g/dL Albumin (3.5-5.0) g/dL - Radiology Data Radiology results: report reviewed (Chest x-ray is negative for acute disease), image reviewed Critical Care Time Critical Care Time: Yes Total Critical Care Time: 31 Disposition Clinical Impression: Hyperthyroidism, Graves disease, Atrial fibrillation with rapid ventricular response, Dyspnea, Elevated troponin Disposition: ADMITTED IP TO THIS [facility] Condition: Serious Referrals: Mónica Acosta MD [Primary Care Provider] - 1-2 days
[2016-10-26] MEDS ORDERED: SODIUM CHLORIDE 0.9% 1,000 ML IV STA (11:50)
[2016-10-26] MEDS ORDERED: DILTIAZEM 5 MG/ML 5 ML VIAL IVP STA (11:50)
[2016-10-26] MEDS ORDERED: SODIUM CHLORIDE 0.9% 500 ML IV STA (11:50)
[2016-10-26] MEDS ORDERED: METHIMAZOLE 5 MG TAB PO STA (12:04)
[2016-10-26 12:13] LABS: Anisocytosis Slight; Basophils % (A) 0 %; CH 29.5; CHCM 32.9; Eosinophils % (A) 0 %; HCT 37.4 % (39.0-53.0); HDW 2.81; HGB 12.1 gm/dL (13.0-17.5); Luc # (Auto) 0.11; Luc % (Auto) 1; Lymphocytes # (A) 1.4 k/uL (1.0-4.8); Lymphocytes % (A) 15 %; MCH 29.2 pg (25.0-35.0); MCHC 32.4 g/dL (31.0-37.0); MCV 90.1 fL (80.0-100.0); Mean Platelet Volume 6.6; Monocytes # (A) 0.5 k/uL (0-1.0); Monocytes % (A) 5 %; Neutrophils # (A) 7.6 k/uL (1.3-7.7); Neutrophils % (A) 78 %; RBC 4.15 m/uL (4.30-5.90); RDW 16.4 % (11.5-15.5); WBC 9.6 k/uL (3.8-10.6); WBC (Perox) 9.08
[2016-10-26] MEDS ORDERED: DILTIAZEM 125 MG in SODIUM CHLORIDE 0.9% 100 ML IV ONE (12:15)
[2016-10-26 12:17] LABS: ALT 133 U/L (21-72); AST 82 U/L (17-59); Alkaline Phosphatase 174 U/L (38-126); Anion Gap 10 mmol/L; Blood Urea Nitrogen 30 mg/dL (9-20); Calcium 9.2 mg/dL (8.4-10.2); Carbon Dioxide 27 mmol/L (22-30); Chloride 102 mmol/L (98-107); Glucose 169 mg/dL (74-99); Magnesium 1.6 mg/dL (1.6-2.3); Non-African American GFR(MDRD) >60 (>60 ml/min/1.73 sqM); Phosphorous 3.5 mg/dL (2.5-4.5); Potassium 3.8 mmol/L (3.5-5.1); Sodium 139 mmol/L (137-145); Total Bilirubin 0.8 mg/dL (0.2-1.3); Total Protein 7.1 g/dL (6.3-8.2)
--- NOTE | 2016-10-26 12:27 | XR ---
EXAMINATION TYPE: XR chest 2V DATE OF EXAM: 10/26/2016 12:16 PM COMPARISON: None HISTORY: 51-year-old male with weakness TECHNIQUE: PA and lateral views FINDINGS: The cardiomediastinal silhouette, aorta, and pulmonary vasculature are within normal limits. Mild dif fuse interstitial prominence. No consolidation or pleural effusion. Hyperinflation with flattening of hemidiaphragms. IMPRESSION: COPD and chronic changes. Given interstitial prominence, correlate to exclude mild CHF.
[2016-10-26 12:38] LABS: INR 1.2 (<1.1); Partial Thromboplastin Time 25.7 sec (22.0-30.0); Prothrombin Time 12.3 sec (9.0-12.0)
[2016-10-26 12:49] LABS: Troponin I 0.05 ng/mL (0.000-0.034)
[2016-10-26] MEDS ORDERED: NITROGLYCERIN SL TABS 0.4 MG TAB SUBLINGUAL PRN (12:54)
[2016-10-26] MEDS ORDERED: ASPIRIN 81 MG CHEW PO STA (12:54)
[2016-10-26] MEDS ORDERED: PROPRANOLOL 40 MG TAB PO STA (12:57)
[2016-10-26] MEDS: METHIMAZOLE 5 MG TAB PO SCH ×2 (16:33→21:40)
[2016-10-26] MEDS ORDERED: THIAMINE 100 MG/ML 2 ML VIAL IM STA (17:17)
[2016-10-26 18:28] LABS: Creatine Kinase MB 0.8 ng/mL (0.0-2.4)
[2016-10-26 18:35] LABS: Troponin I 0.035 ng/mL (0.000-0.034)
[2016-10-26] MEDS: BUDESONIDE 1 MG/2 ML NEBU INHALATION SCH (19:29)
[2016-10-26] MEDS: LEVALBUTEROL NEB 1.25 MG/3 ML AMP INHALATION SCH (19:29)
[2016-10-26] MEDS: THIAMINE 100 MG TAB PO SCH (19:59)
[2016-10-26] MEDS: RIVAROXABAN 10 MG TAB PO SCH (20:18)
[2016-10-26] MEDS: PROPRANOLOL 40 MG TAB PO SCH (20:19)
[2016-10-26 20:23] LABS: Appearance,Urine Clear (Clear); Bilirubin,Urine Negative (Negative); Glucose,Urine (UA) 1+ (Negative); Ketones,Urine Negative (Negative); Leukocyte Esterase,Urine Negative (Negative); Nitrite,Urine Negative (Negative); Protein,Urine Trace (Negative); Specific Gravity,Urine 1.017 (1.001-1.035); UA Billing (MACRO vs. MICRO) CHEM; Urobilinogen,Urine <2.0 mg/dL (<2.0)
[2016-10-26] MEDS: LORazepam 2 MG/ML SYRINGE IV PRN (21:45)
[2016-10-27] LABS: Creatine Kinase MB 0.8 ng/mL (0.0-2.4); Troponin I 0.033 ng/mL (0.000-0.034)
[2016-10-27] MEDS ORDERED: FUROSEMIDE 10 MG/ML 4 ML VIAL IV STA ×2 (00:04→08:12)
[2016-10-27] MEDS: LORazepam 2 MG/ML SYRINGE IV PRN ×3 (01:42→20:14)
[2016-10-27 06:19] LABS: Anisocytosis Slight; Basophils % (A) 0 %; CH 29.2; CHCM 32.3; Eosinophils % (A) 1 %; HCT 31.8 % (39.0-53.0); HDW 2.78; HGB 10.4 gm/dL (13.0-17.5); Luc # (Auto) 0.29; Luc % (Auto) 4; Lymphocytes # (A) 1.5 k/uL (1.0-4.8); Lymphocytes % (A) 20 %; MCH 29.8 pg (25.0-35.0); MCHC 32.8 g/dL (31.0-37.0); MCV 90.7 fL (80.0-100.0); Mean Platelet Volume 6.4; Monocytes # (A) 0.5 k/uL (0-1.0); Monocytes % (A) 7 %; Neutrophils # (A) 5.3 k/uL (1.3-7.7); Neutrophils % (A) 69 %; RDW 16.4 % (11.5-15.5); WBC 7.6 k/uL (3.8-10.6)
[2016-10-27 06:42] LABS: Anion Gap 9 mmol/L; Blood Urea Nitrogen 23 mg/dL (9-20); Calcium 8.7 mg/dL (8.4-10.2); Carbon Dioxide 25 mmol/L (22-30); Chloride 103 mmol/L (98-107); Cholesterol 132 mg/dL (<200); Glucose 109 mg/dL (74-99); HDL Cholesterol 70 mg/dL (40-60); Non-African American GFR(MDRD) >60 (>60 ml/min/1.73 sqM); Potassium 3.5 mmol/L (3.5-5.1); Sodium 137 mmol/L (137-145); Triglycerides 64 mg/dL (<150)
[2016-10-27] MEDS: ATORVASTATIN 80 MG TAB PO SCH (07:47)
[2016-10-27] MEDS: PARoxetine 20 MG TAB PO SCH (07:47)
[2016-10-27] MEDS: PROPRANOLOL 40 MG TAB PO SCH (07:47)
[2016-10-27] MEDS: PRIMIDONE 50 MG TAB PO SCH (07:47)
[2016-10-27] MEDS: BUDESONIDE 1 MG/2 ML NEBU INHALATION SCH ×2 (07:48→19:49)
[2016-10-27] MEDS: LEVALBUTEROL NEB 1.25 MG/3 ML AMP INHALATION SCH ×3 (07:48→19:49)
[2016-10-27] MEDS: METHIMAZOLE 5 MG TAB PO SCH ×3 (07:48→22:55)
[2016-10-27] MEDS: ASPIRIN 325 MG TAB PO SCH (07:48)
--- NOTE | 2016-10-27 08:12 | P.CRDCN ---
<Thalia Garsia E - Last Filed: 10/27/16 09:44> History of Present Illness Consult date: 10/27/16 Requesting physician: Nicole Grider Consult reason: atrial fibrillation Chief complaint: Shortness of Breath and chest pain History of present illness: This is a 51-year-old gentleman who follows with Dr. Quick in the office. He had a recent admission to the hospital earlier this month with congestive heart failure exacerbation secondary to diastolic dysfunction, triggered by hyperthyroidism. Patient had not yet started on a medication for his thyroid. He presents to the hospital on this occasion with symptoms of feeling his heart racing fast, he states that he did have some tightness in his chest at that time and was mildly short of breath. Denies any recent fever or chills. He did start on medication for his Graves' disease recently. Patient does have a history of paroxysmal atrial fibrillation, COPD, hypertension, hyperlipidemia, prior pulmonary embolism, daily EtOH use. EKG on presentation here shows atrial fibrillation with a rapid ventricular response. Chest x-ray reveals COPD with chronic changes, mild congestive heart failure. The pressure on arrival here 101/90, heart rate up into the 130s. Temperature 100.3 99% on room air. Hemoglobin yesterday 12.1, 10.4 this morning, white blood cell count is normal. D-dimer 0.88. Potassium 3.5, BUN 23, creatinine 0.8. Magnesium level I.6. AST 82, ALT 133, alk phos 174. Troponins 0.050, 0.035, 0.033. TSH less than 0.015, free T4 3 0.27, free T3 9.2. Urine drug screen positive for barbiturates. Patient was initiated on a Cardizem drip on arrival here. He is on Xarelto for anticoagulation. This morning patient has converted to normal sinus rhythm and remains in normal sinus rhythm at this time. Past Medical History Past Medical History: Atrial Fibrillation, Atrial Flutter, Cancer, Heart Failure , COPD, Hyperlipidemia, Hypertension, Pneumonia, Pulmonary Embolus (PE), Thyroid Disorder Additional Past Medical History / Comment(s): Pt recently admitted 10/13/16 with CHF/COPD/alcoholic cardiomyopathy/alcoholism. Other hx: Paroxysmal A flutter , CHF, cardiomyopathy with an ejection fraction of 40%, Graves disease, tremors , pulmonary embolism 04/22/2016, squamous cell skin cancer with removal. History of Any Multi-Drug Resistant Organisms: MRSA Date of last positivie culture/infection: 10/16/16 MDRO Source:: SPUTUM Past Surgical History: Adenoidectomy, Cholecystectomy, Tonsillectomy Additional Past Surgical History / Comment(s): RT HAND SX (TENDON REPAIR).RT THIGH SKIN LESION EXCISION(SQUAMOUS CELL CARCINOMA), functional endoscopic sinus surgery/septoplasty/reduction of inferior turbinates. Past Anesthesia/Blood Transfusion Reactions: No Reported Reaction Past Psychological History: Anxiety Additional Psychological History / Comment(s): Pt resides with his brother. He is independent. Smoking Status: Former smoker Past Alcohol Use History: Daily Additional Past Alcohol Use History / Comment(s): STARTED SMOKING 1983, quit 2013. Pt states he drinks 3-4 beers a day. Past Drug Use History: None Reported - Past Family History Mother Family Medical History: Cancer, Coronary Artery Disease (CAD) Additional Family Medical History / Comment(s): Mother had throat cancer and of this at the age of 68yrs. Father Additional Family Medical History / Comment(s): IN [place] WHEN PT WAS 1 YEARS OLD. Medications and Allergies Home Medications Medication Instructions Recorded Confirmed Type Primidone 50 mg PO DAILY 07/10/15 10/26/16 History Albuterol Inhaler [Ventolin Hfa 2 puff INHALATION RT-Q4H PRN 09/25/16 10/26/16 History Inhaler] Albuterol Nebulized [Ventolin 2.5 mg INHALATION RT-TID 09/25/16 10/26/16 History Nebulized] Budesonide [Pulmicort Flexhaler] 1 puff INHALATION RT-BID 09/25/16 10/26/16 History PARoxetine HCL [Paxil] 40 mg PO DAILY 09/25/16 10/26/16 History Rivaroxaban [Xarelto] 20 mg PO HS 09/25/16 10/26/16 History Tiotropium 18 Mcg/Puff [Spiriva] 1 cap INHALATION RT-DAILY 09/25/16 10/26/16 History Allergies Allergy/AdvReac Type Severity Reaction Status Date / Time warfarin [From Coumadin] AdvReac MAKES Verified 10/26/16 12:29 BLOOD TOO THIN Physical Exam Vitals: Vital Signs Temp Pulse Pulse Resp BP BP Pulse Ox 10/27/16 07:48 80 10/27/16 02:46 98.1 F 74 24 116/69 96 10/26/16 23:35 97.9 F 75 24 126/72 94 L 10/26/16 20:05 97.1 F L 76 20 119/77 97 10/26/16 19:47 88 10/26/16 19:29 87 97 10/26/16 14:06 97.8 F 123 H 16 134/85 96 10/26/16 13:30 100.3 F H 135 H 16 140/84 99 10/26/16 12:46 127 H 18 120/82 99 10/26/16 11:26 98.7 F 118 H 20 101/93 95 Intake and Output 10/26/16 10/27/16 10/27/16 22:59 06:59 14:59 Intake Total 240 340 Output Total 200 600 Balance 40 -260 Intake: IV 240 0.9 @ 20 240 Intake, IV Titration 100 Amount Diltiazem 125 mg In 100 Sodium Chloride 0.9% 100 ml @ 10 MG/HR 10 mls/hr IV .[id number] ONE Rx#: [id number] Oral 240 Output: Urine 200 600 Other: Voiding Method Urinal Urinal # Voids 1 Weight 74.8 kg PHYSICAL EXAMINATION: HEENT: Head is atraumatic, normocephalic. Pupils equal, round. Neck is supple. There is no elevated jugular venous pressure. HEART EXAMINATION: Heart S1, S2 normal. No murmur or gallop heard. CHEST EXAMINATION: Lungs reveal decreased air exchange throughout. ABDOMEN: Soft, nontender. Bowel sounds are heard. No organomegaly noted. EXTREMITIES: 2+ peripheral pulses with no evidence of peripheral edema and no calf tenderness noted. NEUROLOGIC patient is awake, alert and oriented -3. . Results 10/27/16 05:55 10/27/16 05:55 Cardiac Enzymes 10/26/16 10/26/16 10/26/16 Range/Units 11:52 11:52 17:45 AST 82 H (17-59) U/L CK-MB (CK-2) 1.0 0.8 (0.0-2.4) ng/mL Troponin I 0.050 H* 0.035 H* (0.000-0.034) ng/mL 10/26/16 Range/Units 23:01 AST (17-59) U/L CK-MB (CK-2) 0.8 (0.0-2.4) ng/mL Troponin I 0.033 (0.000-0.034) ng/mL Coagulation 10/26/16 Range/Units 11:52 PT 12.3 H (9.0-12.0) sec APTT 25.7 (22.0-30.0) sec Lipids 10/27/16 Range/Units 05:55 Triglycerides 64 (<150) mg/dL Cholesterol 132 (<200) mg/dL HDL Cholesterol 70 H (40-60) mg/dL CBC 10/26/16 10/27/16 Range/Units 11:52 05:55 WBC 9.6 7.6 (3.8-10.6) k/uL RBC 4.15 L 3.50 L (4.30-5.90) m/uL Hgb 12.1 L 10.4 L (13.0-17.5) gm/dL Hct 37.4 L 31.8 L (39.0-53.0) % Plt Count 222 162 (150-450) k/uL Comprehensive Metabolic Panel 10/26/16 10/27/16 Range/Units 11:52 05:55 Sodium 139 137 (137-145) mmol/L Potassium 3.8 3.5 (3.5-5.1) mmol/L Chloride 102 103 (98-107) mmol/L Carbon Dioxide 27 25 (22-30) mmol/L BUN 30 H 23 H (9-20) mg/dL Creatinine 0.99 0.80 (0.66-1.25) mg/dL Glucose 169 H 109 H (74-99) mg/dL Calcium 9.2 8.7 (8.4-10.2) mg/dL AST 82 H (17-59) U/L ALT 133 H (21-72) U/L Alkaline Phosphatase 174 H (38-126) U/L Total Protein 7.1 (6.3-8.2) g/dL Albumin 3.8 (3.5-5.0) g/dL Current Medications Generic Name Dose Route Start Last Admin Trade Name Freq PRN Reason Stop Dose Admin Aspirin 325 mg 10/27/16 09:00 10/27/16 07:48 Aspirin PO 325 mg DAILY RENZO Administration Atorvastatin Calcium 80 mg 10/27/16 09:00 10/27/16 07:47 Lipitor PO 80 mg DAILY RENZO Administration Budesonide 1 mg 10/26/16 20:00 10/27/16 07:48 Pulmicort INHALATION 1 mg RT-BID RENZO Administration Levalbuterol HCl 1.25 mg 10/26/16 20:00 10/27/16 07:48 Xopenex Nebulized INHALATION 1.25 mg RT-TID RENZO Administration Lorazepam 1 mg 10/26/16 17:17 Ativan IV Q2HR PRN CIWA 8 or 9 Lorazepam 1 mg 10/26/16 17:17 10/27/16 01:42 Ativan IV 1 mg Q1HR PRN Administration CIWA 10 to 15 Lorazepam 2 mg 10/26/16 17:17 Ativan IV Q1HR PRN CIWA 16 or higher Methimazole 20 mg 10/26/16 16:00 10/27/16 07:48 Tapazole PO 20 mg TID RENZO Administration Nitroglycerin 0.4 mg 10/26/16 12:54 Nitrostat SUBLINGUAL Q5M PRN Chest Pain Paroxetine HCl 40 mg 10/27/16 09:00 10/27/16 07:47 Paxil PO 40 mg DAILY RENZO Administration Primidone 50 mg 10/27/16 09:00 10/27/16 07:47 Mysoline PO 50 mg DAILY RENZO Administration Propranolol HCl 40 mg 10/26/16 21:00 10/27/16 07:47 Inderal PO 40 mg BID RENZO Administration Rivaroxaban 20 mg 10/26/16 21:00 10/26/16 20:18 Xarelto PO 20 mg HS RENZO Administration Thiamine HCl 100 mg 10/26/16 17:00 10/26/16 19:59 Vitamin B-1 PO Not Given BID@1200,1700 RENZO Tiotropium [place] 1 puff 10/27/16 08:00 Spiriva INHALATION RT-DAILY RENZO Intake and Output 10/26/16 10/27/16 10/27/16 22:59 06:59 14:59 Intake Total 240 340 Output Total 200 600 Balance 40 -260 Intake: IV 240 0.9 @ 20 240 Intake, IV Titration 100 Amount Diltiazem 125 mg In 100 Sodium Chloride 0.9% 100 ml @ 10 MG/HR 10 mls/hr IV .[id number] ONE Rx#: [id number] Oral 240 Output: Urine 200 600 Other: Voiding Method Urinal Urinal # Voids 1 Weight 74.8 kg 10/27/16 05:55 10/27/16 05:55 EKG Interpretations (text) Initial EKG shows atrial fibrillation with rapid ventricular response. Assessment and Plan Plan: Assessment and plan #1 atrial fibrillation with rapid ventricular response in the patient with known paroxysmal atrial fibrillation, currently in normal sinus rhythm. #2 Graves' disease, just recently started medication. TSH 0.015, free T4 3 0.27 , free T3 9.2. #3 EtOH use, patient drinks a minimum of 3-4 alcoholic beverages per day. #4 prior history of smoking #5 COPD #6 hypertension #7 diastolic congestive heart failure acute on chronic. Patient recently had an echo in September which revealed an ejection fraction of 50-55%. #8 abnormal liver enzymes, could be secondary to EtOH use. #9 abnormal troponins, not consistent with acute coronary syndrome, likely secondary to atrial fibrillation with rapid ventricular response Plan We will not repeat the echocardiogram with Doppler study as the patient recently had one less than one month ago. Continue Xarelto. Maximize treatment for Graves' disease. Continue propranolol. Replace potassium and magnesium. Patient has been advised regarding the importance of medication compliance as well as EtOH cessation. Obtain BNP level. We will give the patient one time dose of IV Lasix. Further recommendations to follow. DNP note has been reviewed, I agree with a documented findings and plan of care. Patient was seen and examined. <Mikael Martins - Last Filed: 10/27/16 10:36> Physical Exam Vitals: Vital Signs Temp Pulse Pulse Resp BP BP Pulse Ox 10/27/16 08:05 80 10/27/16 07:52 97.6 F 84 20 122/88 100 10/27/16 07:48 80 10/27/16 02:46 98.1 F 74 24 116/69 96 10/26/16 23:35 97.9 F 75 24 126/72 94 L 10/26/16 20:05 97.1 F L 76 20 119/77 97 10/26/16 19:47 88 10/26/16 19:29 87 97 10/26/16 14:06 97.8 F 123 H 16 134/85 96 10/26/16 13:30 100.3 F H 135 H 16 140/84 99 10/26/16 12:46 127 H 18 120/82 99 10/26/16 11:26 98.7 F 118 H 20 101/93 95 Intake and Output 10/26/16 10/27/16 10/27/16 22:59 06:59 14:59 Intake Total 240 340 360 Output Total 200 600 Balance 40 -260 360 Intake: IV 240 0.9 @ 20 240 Intake, IV Titration 100 Amount Diltiazem 125 mg In 100 Sodium Chloride 0.9% 100 ml @ 10 MG/HR 10 mls/hr IV .[id number] ONE Rx#: [id number] Oral 240 360 Output: Urine 200 600 Other: Voiding Method Urinal Urinal Urinal # Voids 1 Weight 74.8 kg 74.8 kg Patient Weight 10/28/16 06:59 Weight 74.8 kg Results 10/27/16 05:55 10/27/16 05:55 Cardiac Enzymes 10/26/16 10/26/16 10/26/16 Range/Units 11:52 11:52 17:45 AST 82 H (17-59) U/L CK-MB (CK-2) 1.0 0.8 (0.0-2.4) ng/mL Troponin I 0.050 H* 0.035 H* (0.000-0.034) ng/mL 10/26/16 Range/Units 23:01 AST (17-59) U/L CK-MB (CK-2) 0.8 (0.0-2.4) ng/mL Troponin I 0.033 (0.000-0.034) ng/mL Coagulation 10/26/16 Range/Units 11:52 PT 12.3 H (9.0-12.0) sec APTT 25.7 (22.0-30.0) sec Lipids 10/27/16 Range/Units 05:55 Triglycerides 64 (<150) mg/dL Cholesterol 132 (<200) mg/dL HDL Cholesterol 70 H (40-60) mg/dL CBC 10/26/16 10/27/16 Range/Units 11:52 05:55 WBC 9.6 7.6 (3.8-10.6) k/uL RBC 4.15 L 3.50 L (4.30-5.90) m/uL Hgb 12.1 L 10.4 L (13.0-17.5) gm/dL Hct 37.4 L 31.8 L (39.0-53.0) % Plt Count 222 162 (150-450) k/uL Comprehensive Metabolic Panel 10/26/16 10/27/16 Range/Units 11:52 05:55 Sodium 139 137 (137-145) mmol/L Potassium 3.8 3.5 (3.5-5.1) mmol/L Chloride 102 103 (98-107) mmol/L Carbon Dioxide 27 25 (22-30) mmol/L BUN 30 H 23 H (9-20) mg/dL Creatinine 0.99 0.80 (0.66-1.25) mg/dL Glucose 169 H 109 H (74-99) mg/dL Calcium 9.2 8.7 (8.4-10.2) mg/dL AST 82 H (17-59) U/L ALT 133 H (21-72) U/L Alkaline Phosphatase 174 H (38-126) U/L Total Protein 7.1 (6.3-8.2) g/dL Albumin 3.8 (3.5-5.0) g/dL Current Medications Generic Name Dose Route Start Last Admin Trade Name Freq PRN Reason Stop Dose Admin Aspirin 325 mg 10/27/16 09:00 10/27/16 07:48 Aspirin PO 325 mg DAILY RENZO Administration Atorvastatin Calcium 80 mg 10/27/16 09:00 10/27/16 07:47 Lipitor PO 80 mg DAILY RENZO Administration Budesonide 1 mg 10/26/16 20:00 10/27/16 07:48 Pulmicort INHALATION 1 mg RT-BID RENZO Administration Magnesium Sulfate/Dextrose 1 100 mls @ 100 mls/hr 10/27/16 10:00 gm/ IV Solution IVPB 10/27/16 11:59 Q1H RENZO Levalbuterol HCl 1.25 mg 10/26/16 20:00 10/27/16 07:48 Xopenex Nebulized INHALATION 1.25 mg RT-TID RENOZ Administration Lorazepam 1 mg 10/26/16 17:17 Ativan IV Q2HR PRN CIWA 8 or 9 Lorazepam 1 mg 10/26/16 17:17 10/27/16 01:42 Ativan IV 1 mg Q1HR PRN Administration CIWA 10 to 15 Lorazepam 2 mg 10/26/16 17:17 Ativan IV Q1HR PRN CIWA 16 or higher Methimazole 20 mg 10/26/16 16:00 10/27/16 07:48 Tapazole PO 20 mg TID RENZO Administration Nitroglycerin 0.4 mg 10/26/16 12:54 Nitrostat SUBLINGUAL Q5M PRN Chest Pain Paroxetine HCl 40 mg 10/27/16 09:00 10/27/16 07:47 Paxil PO 40 mg DAILY RENZO Administration Potassium Chloride 20 meq 10/27/16 10:00 K-Dur 20 PO 10/27/16 14:01 Q2HR RENZO Primidone 50 mg 10/27/16 09:00 10/27/16 07:47 Mysoline PO 50 mg DAILY RENZO Administration Propranolol HCl 40 mg 10/26/16 21:00 10/27/16 07:47 Inderal PO 40 mg BID RENZO Administration Rivaroxaban 20 mg 10/26/16 21:00 10/26/16 20:18 Xarelto PO 20 mg HS RENZO Administration Thiamine HCl 100 mg 10/26/16 17:00 10/26/16 19:59 Vitamin B-1 PO Not Given BID@1200,1700 [facility] Tiotropium [place] 1 puff 10/27/16 08:00 Spiriva INHALATION RT-DAILY RENZO Intake and Output 10/26/16 10/27/16 10/27/16 22:59 06:59 14:59 Intake Total 240 340 360 Output Total 200 600 Balance 40 -260 360 Intake: IV 240 0.9 @ 20 240 Intake, IV Titration 100 Amount Diltiazem 125 mg In 100 Sodium Chloride 0.9% 100 ml @ 10 MG/HR 10 mls/hr IV .[id number] ONE Rx#: [id number] Oral 240 360 Output: Urine 200 600 Other: Voiding Method Urinal Urinal Urinal # Voids 1 Weight 74.8 kg 74.8 kg Patient Weight 10/28/16 06:59 Weight 74.8 kg 10/27/16 05:55 10/27/16 05:55
--- NOTE | 2016-10-27 09:40 | HP ---
DATE OF ADMISSION: HISTORY OF PRESENT ILLNESS: This 51-year-old gentleman with a past medical history of multiple medical problems including atrial flutter fibrillation, history of CHF, COPD, hypertension, hyperlipidemia, history of EtOH and pulmonary embolism, history of cardiomyopathy, ejection fraction of 40% with chronic systolic dysfunction, history of Grave's disease, history of tremors, history of squamous cell carcinoma, cholecystectomy, anxiety, being followed by Dr. Ricardo and as well as Dr. Mónica Acosta in the outpatient setting was having significant palpitations. Patient came to [facility] Emergency Room and was admitted for further evaluation and treatment. The patient was complaining of medication. The patient had only 2 drinks last night. Otherwise, the patient also had Graves' disease. There is no history of any fever, rigors. No history of headache, loss of consciousness or seizures. PAST MEDICAL HISTORY: History of atrial fibrillation flutter, history of CHF, COPD, hypertension, hyperlipidemia, history of pneumonia, history of pulmonary embolism, hypothyroidism, history of anxiety. Medications prior to admission include home medications are: 1. Pulmicort 20 mg b.i.d. 2. Ventolin HFA 2 puffs q.4 p.r.n. 3. Spiriva 1 puff daily. 4. Xarelto 20 mg q.h.s. 5. PT, OT 200 mg q.48 hours. 6. Inderal 30 mg p.o. t.i.d. 7. Primidone 50 mg daily. 8. Paxil 40 mg daily. 9. Albuterol nebulizer 2.5 t.i.d. ALLERGIES ARE COUMADIN. FAMILY HISTORY: History of coronary artery disease, history of throat cancer. SOCIAL HISTORY: Previous smoking, occasional alcohol intake. REVIEW OF SYSTEMS: ENT: No diminished hearing. No diminished vision. CARDIOVASCULAR: As mentioned earlier. GI: No nausea. : No dysuria. NERVOUS SYSTEM: No numbness or weakness. ALLERGY/IMMUNOLOGY: No asthma or hayfever. MUSCULOSKELETAL: As mentioned earlier. HEMATOLOGY/ONCOLOGY: As mentioned earlier. ENDOCRINE: Hyperthyroidism. CONSTITUTIONAL: As mentioned earlier. DERMATOLOGY: Negative. RHEUMATOLOGY: Negative. PSYCHIATRY: As mentioned earlier. PHYSICAL EXAMINATION: Patient is alert and oriented x3. Pulse 123 tachycardia, temperature 100.3, blood pressure 125/85, respirations 16, temperature 97.8, pulse ox 96% on nasal cannula 2-L. HEENT: Conjunctivae normal. Oral mucosa moist. NECK: No jugular venous distention. No carotid bruit. No lymph node enlargement. CARDIOVASCULAR: S1 and S2, tachycardia. No S3, no S4. Irregular. RESPIRATORY: Breath sounds diminished at the bases. A few scattered rhonchi and crackles. ABDOMEN: Soft, nontender. No mass palpable. LEGS: No edema, no swelling. NERVOUS SYSTEM: Higher function as mentioned. Moves all four limbs. No focal motor deficits. LYMPHATIC: No lymphadenopathy in the neck, axillae or groin. SKIN: No ulcer, rash or bleeding. LABS: At this time shows WBC of 9.3, hemoglobin is 12.1. INR is 1.2. Troponin 0.050, AST 82, ALT is 133. EKG showed atrial fibrillation with fast ventricular rate and the chest x-ray, chronic obstructive pulmonary disease and chronic changes. ASSESSMENT: 1. Atrial fibrillation with fast ventricular rate. 2. Hyperthyroidism. 3. Palpitations secondary to atrial fibrillation. 4. Increased AST, ALT, possible hepatitis related to alcohol. 5. Possible congestive heart failure acute exacerbation with acute on chronic systolic dysfunction, ejection fraction 40%. 6. History of cardiomyopathy. 7. History of EtOH. 8. Atrial flutter fibrillation. 9. Chronic obstructive pulmonary disease. 10. Hypertension. 11. Hyperlipidemia. 12. History of pneumonia. 13. History of pulmonary embolus. 14. History of alcoholic cardiomyopathy. 15. History of paroxysmal atrial flutter fibrillation. 16. History of Grave's disease. 17. History of tremors. 18. Squamous cell carcinoma of the skin with removal. 19. Adenoidectomy. 20. Cholecystectomy. 21. Anxiety, not otherwise specified. 22. History of nicotine dependence. RECOMMENDATIONS AND DISCUSSION: I recommend to continue the current medications, continue symptomatic treatment. Otherwise, at this time I would recommend Cardizem drip. TSH is also elevated indicating acute hyperthyroidism. We will initiate Tapazole 10 mg t.i.d. and adjust the dosage. Otherwise, continue to monitor. Will check a free T3 and free T4 levels also. Prognosis guarded because of multiple complex medical issues. Further recommendations to follow.
--- NOTE | 2016-10-27 10:45 | P.PN ---
Progress Note - Text Patient interviewed and examined Admitted with A. fib with RVR, currently back in sinus rhythm Noncompliance Alcohol abuse Normal LV function Suggest Flecainide 50 mg twice daily Inderal LA 120 mg by mouth daily No alcohol use May go to the medical floor if he does not have any A. fib for the next 24 hours
[2016-10-27] MEDS: MAGNESIUM SULFATE-D5W PMX 1 GM in DEXTROSE/WATER 1 100ML.BAG IVPB SCH ×2 (10:50→12:13)
[2016-10-27] MEDS: POTASSIUM CHLORIDE ER 20 MEQ TAB.ER PO SCH ×3 (10:51→14:09)
[2016-10-27] MEDS: PROPRANOLOL LA 60 MG CAP.SA.24H PO SCH (10:55)
[2016-10-27] MEDS: FLECAINIDE 50 MG TAB PO SCH ×2 (10:56→20:14)
[2016-10-27] MEDS: THIAMINE 100 MG TAB PO SCH ×2 (12:13→16:00)
[2016-10-27] MEDS: TIOTROPIUM 18 MCG/PUFF INHALER INHALATION SCH (13:14)
[2016-10-27] MEDS ORDERED: IV VANCOMYCIN PER PHARMACY 1 EACH MISC MISCELLANE PRN (13:44)
[2016-10-27] MEDS ORDERED: VANCOMYCIN 1,750 MG in SODIUM CHLORIDE 0.9% 250 ML IVPB ONE (15:00)
[2016-10-27] MEDS: RIVAROXABAN 10 MG TAB PO SCH (20:14)
--- NOTE | 2016-10-27 21:55 | PN ---
DATE OF SERVICE: 10/27/2016 This 51-year-old gentleman who was admitted with atrial fibrillation with fast ventricular rate also had hyperthyroidism. Seen and evaluated the patient along with the nurse practitioner. Please refer to the nurse practitioner's notes and impressions documented as a scribe for further information. Will closely follow with Cardiology. Patient is on flecainide and Inderal.
[2016-10-27] MEDS: VANCOMYCIN 1,250 MG in SODIUM CHLORIDE 0.9% 250 ML IVPB SCH (22:55)
[2016-10-28] MEDS: LORazepam 2 MG/ML SYRINGE IV PRN ×6 (02:58→23:22)
[2016-10-28] MEDS: DILTIAZEM 125 MG in SODIUM CHLORIDE 0.9% 100 ML IV SCH ×2 (04:42→15:42)
[2016-10-28] MEDS: VANCOMYCIN 1,250 MG in SODIUM CHLORIDE 0.9% 250 ML IVPB SCH ×3 (06:28→21:53)
[2016-10-28 06:35] LABS: Anisocytosis Slight; Basophils % (A) 0 %; CH 29.3; CHCM 32.1; Eosinophils # (A) 0.1 k/uL (0-0.7); Eosinophils % (A) 1 %; HCT 31.2 % (39.0-53.0); HDW 2.77; Luc # (Auto) 0.17; Luc % (Auto) 3; Lymphocytes # (A) 1.7 k/uL (1.0-4.8); Lymphocytes % (A) 28 %; MCH 29.6 pg (25.0-35.0); MCHC 32.2 g/dL (31.0-37.0); MCV 91.8 fL (80.0-100.0); Mean Platelet Volume 6.9; Monocytes # (A) 0.5 k/uL (0-1.0); Monocytes % (A) 7 %; Neutrophils # (A) 3.8 k/uL (1.3-7.7); Neutrophils % (A) 61 %; RDW 16.3 % (11.5-15.5); WBC 6.2 k/uL (3.8-10.6); WBC (Perox) 5.92
[2016-10-28 06:43] LABS: Anion Gap 9 mmol/L; Blood Urea Nitrogen 18 mg/dL (9-20); Calcium 8.4 mg/dL (8.4-10.2); Carbon Dioxide 24 mmol/L (22-30); Chloride 101 mmol/L (98-107); Glucose 98 mg/dL (74-99); Magnesium 1.8 mg/dL (1.6-2.3); Non-African American GFR(MDRD) >60 (>60 ml/min/1.73 sqM); Potassium 3.8 mmol/L (3.5-5.1); Sodium 134 mmol/L (137-145)
[2016-10-28] MEDS: METHIMAZOLE 5 MG TAB PO SCH ×3 (08:50→21:17)
[2016-10-28] MEDS: ASPIRIN 325 MG TAB PO SCH (08:50)
[2016-10-28] MEDS: ATORVASTATIN 80 MG TAB PO SCH (08:50)
[2016-10-28] MEDS: PARoxetine 20 MG TAB PO SCH (08:51)
[2016-10-28] MEDS: FLECAINIDE 50 MG TAB PO SCH ×2 (08:51→21:17)
[2016-10-28] MEDS: PROPRANOLOL LA 60 MG CAP.SA.24H PO SCH (08:51)
[2016-10-28] MEDS: PRIMIDONE 50 MG TAB PO SCH (08:51)
[2016-10-28] MEDS: THIAMINE 100 MG TAB PO SCH ×2 (08:52→15:39)
[2016-10-28] MEDS: TIOTROPIUM 18 MCG/PUFF INHALER INHALATION SCH (09:19)
[2016-10-28] MEDS: LEVALBUTEROL NEB 1.25 MG/3 ML AMP INHALATION SCH ×3 (09:19→21:39)
[2016-10-28] MEDS: BUDESONIDE 1 MG/2 ML NEBU INHALATION SCH ×2 (09:19→21:40)
--- NOTE | 2016-10-28 10:03 | CONS ---
DATE OF CONSULTATION: 10/27/2016 REASON FOR CONSULTATION: Positive sputum culture with MRSA and low-grade fever. HISTORY OF PRESENT ILLNESS: The patient is 51-year-old male who was recently admitted to [facility] where the patient was treated for underlying diastolic dysfunction triggered by hyperthyroidism during that hospital stay the patient also had sputum cultures obtained which were finalized as MRSA. Though the culture was finalized after the patient was already discharged on 06/18/2016, hence he was not treated. Patient was coming back to the [facility] ER with chief complaints of palpitation and increasing shortness of breath. His symptoms have been getting worse over the last night. The patient denies significant chest pain though he did have a cough bringing up minimal amount of sputum. He admits to slight blood in it. The patient did have a low-grade fever, but denies any high-grade fever spikes. Denies having nausea or vomiting. He denies any abdominal pain. Patient apparently was noticed to be in atrial fibrillation with RVR and has been admitted to the hospital with new fever and findings about his positive sputum culture. ID was consulted for further recommendation regarding antibiotic therapy. REVIEW OF SYSTEMS: CONSTITUTIONAL: Positive for weakness and chills. EYES: No complaint. ENT: No complaint. RESPIRATORY: As per HPI. CARDIOVASCULAR: As per HPI. GENITOURINARY: No complaint. GASTROINTESTINAL: No complaint. MUSCULOSKELETAL: No complaint. INTEGUMENTARY: No complaint. PSYCHOLOGICAL: No complaint. ENDOCRINE: No complaint. NEUROLOGICAL: No complaint. PAST MEDICAL HISTORY: Atrial fibrillation/atrial flutter, COPD, hyperlipidemia, hypertension, pneumonia, pulmonary embolism, hyperthyroidism/Grave's disease, squamous cell carcinoma. PAST SURGICAL HISTORY: Adenoidectomy, cholecystectomy, tonsillectomy, squamous cell carcinoma resection. SOCIAL HISTORY: Quit smoking back in 2013. Drinks 3 to 4 beers per day. Denies any drug use. FAMILY HISTORY: Mother with history of throat cancer and coronary artery disease. Father when patient was 1-years old. ALLERGIES: MORPHINE. MEDICATIONS: The patient is on aspirin, Lipitor, Pulmicort, Tambocor, Xopenex, Ativan, Tapazole, Nitrostat, Paxil, Mysoline, Inderal LA, Xarelto, vitamin B1, Spiriva. On examination, blood pressure is 122/70 with a pulse of 84. Temperature is 98.3. T-max is 100.3. He is 94% on 2 liters nasal cannula. General description is a middle-age male lying in bed in no distress. No tachypnea or accessory muscles or respiration use. HEENT examination shows pallor. No scleral icterus. Oral mucosa membranes dry. NECK: Trachea central. There is no thyromegaly. LUNGS: Unlabored breathing with decreased breath sounds at bases. No wheeze. HEART: S1, S2. Regular rate and rhythm. ABDOMEN: Soft, no tenderness. No guarding, no rigidity. EXTREMITIES: No edema of feet. SKIN: No rash or mass palpable. NEUROLOGICAL: The patient is awake, alert, oriented x3. Mood and affect normal. LABS: Hemoglobin is 10.4, white count 7.6. BUN of 23, creatinine 0.80. Troponin is slightly elevated though repeat has been normal. Urine has been negative. Urine drug screen was positive for barbiturates. Sputum done on the 10/16 reported on 10/20 was positive for methicillin-resistant Staphylococcus aureus. Patient did have a chest x-ray which shows chronic changes with interstitial prominence. DIAGNOSTIC IMPRESSION AND PLAN: Patient with admission to the hospital with difficulty in breathing and did have palpitation with symptomatology mostly ongoing with A. fib with RVR with secondary cardiac decompensation. However, the patient did have low-grade fever with some sputum production, now with minimal blood tinge with sputum positive for Methicillin-resistant Staphylococcus aureus, many. Could be more likely chronic obstructive pulmonary disease exacerbation with tracheobronchitis. Underlying pneumonia not entirely excluded. PLAN: 1. Obtain blood cultures x2. 2. Repeat sputum culture. 3. Afterward, the patient started on vancomycin, pharmacy to dose with a target trough of 15. 4. Will follow with his clinical condition as well as repeat cultures to further adjust medication if needed. Thank you for this consultation. Will follow this patient along with you. PARTHA
--- NOTE | 2016-10-28 14:50 | PN ---
DATE OF SERVICE: 10/28/2016 Reason for followup is MRSA tracheobronchitis versus pneumonia. INTERVAL HISTORY: The patient is afebrile. His breathing is slightly improved. He continued to have some cough, bringing up a minimal amount of sputum. No hemoptysis. No chest pain. No abdominal pain and no diarrhea. On examination, blood pressure is 110/56 with a pulse of 101, temperature 98.7. He is 98% on 2 L nasal cannula. General description is a middle-age male lying in bed in no distress. RESPIRATORY SYSTEM: Unlabored breathing. Decreased breath sounds. No wheeze. HEART: S1, S2, regular rate and rhythm. ABDOMEN: Soft, no tenderness. EXTREMITIES: No edema of the feet. LABS: Hemoglobin is 10, white count 6.2 with a BUN of 8, and creatinine 0.73. Blood culture yesterday currently pending, sputum has not been collected. DIAGNOSTIC IMPRESSION AND PLAN: Patient admitted to the hospital with difficulty in breathing and palpitation in a patient who did have COPD Exacerbation with tracheobronchitis with recent sputum culture with methicillin-resistant Staphylococcus aureus. Repeat sputum has been ordered as well as blood cultures. Continue the patient on vancomycin. At this point, we are waiting for his clinical condition to stabilize and cultures to be close to finalize. Continue supportive care. PARTHA
--- NOTE | 2016-10-28 15:03 | P.PN ---
Subjective Principal diagnosis: Atrial fibrillation This is a 51-year-old gentleman who follows with Dr. Quick in the office. He had a recent admission to the hospital earlier this month with congestive heart failure exacerbation secondary to diastolic dysfunction, triggered by hyperthyroidism. Patient had not yet started on a medication for his thyroid. He presents to the hospital on this occasion with symptoms of feeling his heart racing fast, he states that he did have some tightness in his chest at that time and was mildly short of breath. Denies any recent fever or chills. He did start on medication for his Graves' disease recently. Patient does have a history of paroxysmal atrial fibrillation, COPD, hypertension, hyperlipidemia, prior pulmonary embolism, daily EtOH use. EKG on presentation here shows atrial fibrillation with a rapid ventricular response. Chest x-ray reveals COPD with chronic changes, mild congestive heart failure. Patient is on Xarelto for anticoagulation. In atrial fibrillation today. On Cardizem drip at 10 mg per hour. He is also on flecainide 50 mg twice a day. We will decrease his aspirin to 81 mg daily. Objective - Vital Signs Vital signs: Vital Signs Temp 98.7 F 10/28/16 12:00 Pulse 101 H 10/28/16 12:00 Resp 18 10/28/16 12:00 BP 110/66 10/28/16 12:00 Pulse Ox 90 L 10/28/16 12:00 Intake & Output 10/27/16 10/28/16 10/28/16 18:59 06:59 18:59 Intake Total 1320 500 0 Output Total 400 750 Balance 920 -250 0 Weight 74.8 kg 75.2 kg Intake: Intake, IV Titration 500 Amount Vancomycin 1,250 mg In 250 Sodium Chloride 0.9% 250 ml @ 125 mls/hr IVPB Q8H [facility] Rx#:[id number] Vancomycin 1,750 mg In 250 Sodium Chloride 0.9% 250 ml @ 125 mls/hr IVPB ONCE ONE Rx#:[id number] Oral 1320 0 Output: Urine 400 750 Other: Voiding Method Urinal Urinal Urinal # Voids 2 1 # Bowel Movements 0 - Exam PHYSICAL EXAMINATION: HEENT: Head is atraumatic, normocephalic. Pupils equal, round. Neck is supple. There is no elevated jugular venous pressure. HEART EXAMINATION: Heart S1, S2 irregularly irregular . No murmur or gallop heard. CHEST EXAMINATION: Lungs reveal decreased air exchange throughout. ABDOMEN: Soft, nontender. Bowel sounds are heard. No organomegaly noted. EXTREMITIES: 2+ peripheral pulses with no evidence of peripheral edema and no calf tenderness noted. NEUROLOGIC patient is awake, alert and oriented -3. - Labs CBC & Chem 7: 10/28/16 06:05 10/28/16 06:05 Labs: Abnormal Lab Results - Last 24 Hours (Table) 10/28/16 10/28/16 Range/Units 06:05 06:05 RBC 3.40 L (4.30-5.90) m/uL Hgb 10.0 L (13.0-17.5) gm/dL Hct 31.2 L (39.0-53.0) % RDW 16.3 H (11.5-15.5) % Sodium 134 L (137-145) mmol/L Assessment and Plan Plan: Assessment and plan #1 atrial fibrillation with rapid ventricular response in the patient with known paroxysmal atrial fibrillation currently on IV Cardizem drip.. #2 Graves' disease, just recently started medication. TSH 0.015, free T4 3 0.27 , free T3 9.2. #3 EtOH use, patient drinks a minimum of 3-4 alcoholic beverages per day. #4 prior history of smoking #5 COPD #6 hypertension #7 diastolic congestive heart failure acute on chronic. Patient recently had an echo in September which revealed an ejection fraction of 50-55%. #8 abnormal liver enzymes, could be secondary to EtOH use. #9 abnormal troponins, not consistent with acute coronary syndrome, likely secondary to atrial fibrillation with rapid ventricular response Plan We will not repeat the echocardiogram with Doppler study as the patient recently had one less than one month ago. Continue Xarelto. Maximize treatment for Graves' disease. Continue propranolol. Replace potassium and magnesium. Patient has been advised regarding the importance of medication compliance as well as EtOH cessation. BNP level 5360. We will start the patient on Lasix 20 mg IV twice a day. Check daily lytes BUN and creatinine. DNP note has been reviewed, I agree with a documented findings and plan of care. Patient was seen and examined.
--- NOTE | 2016-10-28 17:50 | P.PN ---
Subjective Date of service 10/27/2016. Progress note being dictated for Dr. Grider. Interval history: This a 51-year-old gentleman admitted with atrial fibrillation with RVR, hyperthyroidism, sputum positive for MRSA -possibly pneumonia, possibly COPD exacerbation with tracheobronchitis and multiple other medical issues. Patient recently discharged on 06/18/2016, with sputum culture finalized outpatient for MRSA. Evaluated by infectious disease. Continues on vancomycin. Maintained on flecainide and Inderal. Telemetry currently sinus rhythm. T-max 100.3. Blood cultures, repeat sputum culture pending. Tapazole initiated yesterday. Free T4 3.27, free T3 92. Denies chest pain, palpitations. Complains of generalized weakness. Objective - Vital Signs Vital signs: Vital Signs Temp 97.6 F 10/27/16 16:00 Pulse 84 10/27/16 16:00 Resp 24 10/27/16 16:00 BP 116/72 10/27/16 16:00 Pulse Ox 96 10/27/16 16:00 Intake & Output 10/26/16 10/27/16 10/27/16 18:59 06:59 18:59 Intake Total 848 185 7651 Output Total 800 400 Balance 240 -460 920 Weight 72.575 kg 74.8 kg 74.8 kg Intake: IV 240 0.9 @ 20 240 Intake, IV Titration 100 Amount Diltiazem 125 mg In 100 Sodium Chloride 0.9% 100 ml @ 10 MG/HR 10 mls/hr IV .[id number] Rx#: [id number] Oral 240 1320 Output: Urine 800 400 Other: Voiding Method Urinal Urinal # Voids 1 2 # Bowel Movements 0 - Exam PHYSICAL EXAM: VITAL SIGNS: As above GENERAL: [Lying in bed, no acute distress] HEENT: [Pupils equal conjunctiva normal.] NECK: [Supple, no JVD] RESPIRATORY EFFORT:[normal] LUNGS: [Diminished, no rhonchi crackles or wheeze] CARDIOVASCULAR[regular S1-S2, no edema] GI: [Abdomen soft, nontender, positive bowel sounds.] PSYCH: [Alert and oriented -3, mood and affect normal.] NEURO: No focal deficits. - Labs CBC & Chem 7: 10/28/16 06:05 10/28/16 06:05 Labs: Abnormal Lab Results - Last 24 Hours (Table) 10/26/16 10/26/16 10/26/16 Range/Units 11:52 20:13 23:01 RBC (4.30-5.90) m/uL Hgb (13.0-17.5) gm/dL Hct (39.0-53.0) % RDW (11.5-15.5) % D-Dimer (<0.60) mg/L FEU BUN (9-20) mg/dL Glucose (74-99) mg/dL Total Creatine Kinase 32 L (55-170) U/L HDL Cholesterol (40-60) mg/dL Free T4 3.27 H (0.78-2.19) ng/dL Free T3 pg/mL 9.2 H (2.8-5.3) pg/ml Urine Protein Trace H (Negative) Urine Glucose (UA) 1+ H (Negative) Ur Barbiturates Screen Detected H (NotDetected) 10/27/16 10/27/16 10/27/16 Range/Units 01:07 05:55 05:55 RBC 3.50 L (4.30-5.90) m/uL Hgb 10.4 L (13.0-17.5) gm/dL Hct 31.8 L (39.0-53.0) % RDW 16.4 H (11.5-15.5) % D-Dimer 0.88 H (<0.60) mg/L FEU BUN 23 H (9-20) mg/dL Glucose 109 H (74-99) mg/dL Total Creatine Kinase (55-170) U/L HDL Cholesterol 70 H (40-60) mg/dL Free T4 (0.78-2.19) ng/dL Free T3 pg/mL (2.8-5.3) pg/ml Urine Protein (Negative) Urine Glucose (UA) (Negative) Ur Barbiturates Screen (NotDetected) Assessment and Plan Plan: 1. [Atrial fibrillation with RVR]. 2. [Hyperthyroidism]. 3. [Possible alcoholic hepatitis with elevated LFTs, in a patient with EtOH abuse]. 4. [Acute on chronic exacerbation CHF, systolic dysfunction, EF 40%]. 5. [Cardiomyopathy, alcoholic]. 6. [COPD, possibly acute exacerbation with tracheobronchitis]. 7. [Hypertension 8. Hyperlipidemia 9. History of PE]. 10. Chronic Proximal atrial flutter, proximal atrial fibrillation 11. Graves' disease 12. Anxiety, not otherwise specified 13. History of nicotine dependence Plan: Continue on current medication regime , vancomycin, monitoring and symptomatic treatment. Antibiotics as per ID. Follow cultures closely.monitor closely for potential DTs, maintain CIWA protocol. Further recommendations to follow. The impression and plan of care has been dictated as directed. : I performed a H&P examination of this patient and discussed the same with the dictator. I agree with the dictator's note. Any additional findings/opinions/ etc. will be noted.
--- NOTE | 2016-10-28 18:03 | P.PN ---
Subjective Date of service 10/28/2016. Progress note being dictated for Dr. Grider. Interval history: This a 51-year-old gentleman admitted with atrial fibrillation with RVR, hyperthyroidism, sputum positive for MRSA -possibly pneumonia, possibly COPD exacerbation with tracheobronchitis and multiple other medical issues. Returned into atrial fibrillation with RVR, heart rates up into the 180s with Cardizem drip initiated. Anticoagulated on Xarelto. BNP 5360, on Lasix IV push .Confused today, and active DTs, talking to the pal. Received 4 mg of Ativan this morning and a total of 3 mg during the night. Sitter at bedside. Objective - Vital Signs Vital signs: Vital Signs Temp 98.7 F 10/28/16 12:00 Pulse 101 H 10/28/16 12:00 Resp 18 10/28/16 12:00 BP 110/66 10/28/16 12:00 Pulse Ox 90 L 10/28/16 12:00 Intake & Output 10/27/16 10/28/16 10/28/16 18:59 06:59 18:59 Intake Total 1320 500 230 Output Total 400 750 400 Balance 920 -250 -170 Weight 74.8 kg 75.2 kg Intake: Intake, IV Titration 500 110 Amount Diltiazem 125 mg In 110 Sodium Chloride 0.9% 100 ml @ 10 MG/HR 10 mls/hr IV .[id number] [facility] Rx#: [id number] Vancomycin 1,250 mg In 250 Sodium Chloride 0.9% 250 ml @ 125 mls/hr IVPB Q8H [facility] Rx#:[id number] Vancomycin 1,750 mg In 250 Sodium Chloride 0.9% 250 ml @ 125 mls/hr IVPB ONCE ONE Rx#:[id number] Oral 1320 120 Output: Urine 400 750 400 Other: Voiding Method Urinal Urinal Urinal # Voids 2 1 # Bowel Movements 0 - Exam PHYSICAL EXAM: VITAL SIGNS: As above GENERAL: [Lying in bed, no acute distress, confused] HEENT: [Pupils equal conjunctiva normal.] NECK: [Supple, no JVD] RESPIRATORY EFFORT:[normal] LUNGS: [Diminished, no rhonchi crackles or wheeze] CARDIOVASCULAR[irregular, no murmurs rubs or gallops, no edema] GI: [Abdomen soft, nontender, positive bowel sounds.] NEURO/PSYCH: [Alert and oriented -1, confused, hallucinating, talking to the pal] . Microbiology 10/27/16 15:04 Blood Blood Culture - Preliminary No Growth after 24 hours 10/27/16 15:04 Blood Blood Culture - Preliminary No Growth after 24 hours - Labs CBC & Chem 7: 10/28/16 06:05 10/28/16 06:05 Labs: Abnormal Lab Results - Last 24 Hours (Table) 10/28/16 10/28/16 Range/Units 06:05 06:05 RBC 3.40 L (4.30-5.90) m/uL Hgb 10.0 L (13.0-17.5) gm/dL Hct 31.2 L (39.0-53.0) % RDW 16.3 H (11.5-15.5) % Sodium 134 L (137-145) mmol/L Microbiology - Last 24 Hours (Table) 10/27/16 15:04 Blood Culture - Preliminary Blood No Growth after 24 hours 10/27/16 15:04 Blood Culture - Preliminary Blood No Growth after 24 hours Assessment and Plan Plan: 1. [Atrial fibrillation with RVR]. 2. [Hyperthyroidism]. 3. [Possible alcoholic hepatitis with elevated LFTs, in a patient with EtOH abuse]. 4. [Acute on chronic exacerbation CHF, systolic dysfunction, EF 40%]. 5. [Cardiomyopathy, alcoholic]. 6. [COPD, possibly acute exacerbation with tracheobronchitis]. 7. [Hypertension 8. Hyperlipidemia 9. History of PE]. 10. Chronic Proximal atrial flutter, proximal atrial fibrillation 11. Graves' disease 12. Anxiety, not otherwise specified 13. History of nicotine dependence 14. Elevated troponins, secondary to atrial fibrillation, not acute coronary syndrome as per cardiology. 15. Active DTs in a patient with EtOH abuse Plan: Continue on current medication regime , vancomycin, Lasix ,monitoring and symptomatic treatment. Endocrinology consult initiated regarding hyperthyroidism. Vancomycin as per ID. final culture results pending.Maintain CIWA protocol. Close monitoring of electrolytes with repeat labs ordered for a.m. Further recommendations to follow. Gnosis guarded given multiple complex medical issues. The impression and plan of care has been dictated as directed. : I performed a H&P examination of this patient and discussed the same with the dictator. I agree with the dictator's note. Any additional findings/opinions/ etc. will be noted.
[2016-10-28] MEDS: RIVAROXABAN 10 MG TAB PO SCH (21:17)
[2016-10-28] MEDS: FUROSEMIDE 10 MG/ML 2 ML VIAL IV SCH (21:17)
[2016-10-28] MEDS: PANTOPRAZOLE 40 MG/10 ML VIAL IVP SCH (21:53)
[2016-10-29] MEDS: LORazepam 2 MG/ML SYRINGE IV PRN ×11 (00:31→23:52)
[2016-10-29 02:05] LABS: Glucose,Whole Blood 214 mg/dL (75-99)
[2016-10-29] MEDS ORDERED: VANCOMYCIN TROUGH DUE 1 EACH MISC MISCELLANE ONE (05:00)
[2016-10-29] MEDS: VANCOMYCIN 1,250 MG in SODIUM CHLORIDE 0.9% 250 ML IVPB SCH ×2 (05:26→22:19)
[2016-10-29 05:51] LABS: Anisocytosis Slight; Basophils % (A) 0 %; CH 29.1; Eosinophils # (A) 0.1 k/uL (0-0.7); Eosinophils % (A) 2 %; HCT 31.8 % (39.0-53.0); HDW 2.66; HGB 9.9 gm/dL (13.0-17.5); Hypochromasia Slight; Luc # (Auto) 0.26; Luc % (Auto) 3; Lymphocytes # (A) 1.7 k/uL (1.0-4.8); Lymphocytes % (A) 21 %; MCH 29.6 pg (25.0-35.0); MCHC 31.3 g/dL (31.0-37.0); MCV 94.5 fL (80.0-100.0); Monocytes # (A) 0.7 k/uL (0-1.0); Monocytes % (A) 9 %; Neutrophils # (A) 5.1 k/uL (1.3-7.7); Neutrophils % (A) 65 %; RBC 3.36 m/uL (4.30-5.90); RDW 16.3 % (11.5-15.5); WBC 7.9 k/uL (3.8-10.6); WBC (Perox) 7.95
[2016-10-29 06:12] LABS: Anion Gap 10 mmol/L; Blood Urea Nitrogen 23 mg/dL (9-20); Calcium 8.8 mg/dL (8.4-10.2); Carbon Dioxide 23 mmol/L (22-30); Chloride 100 mmol/L (98-107); Glucose 154 mg/dL (74-99); Non-African American GFR(MDRD) >60 (>60 ml/min/1.73 sqM); Potassium 4.6 mmol/L (3.5-5.1); Sodium 133 mmol/L (137-145)
[2016-10-29] MEDS ORDERED: HALOPERIDOL LACTATE 5 MG/ML 1 ML VIAL IM PRN (06:17)
[2016-10-29] MEDS ORDERED: HALOPERIDOL LACTATE 5 MG/ML 1 ML VIAL ONE (06:34)
[2016-10-29] MEDS: DILTIAZEM 125 MG in SODIUM CHLORIDE 0.9% 100 ML IV SCH ×4 (07:22→23:35)
[2016-10-29] MEDS: TIOTROPIUM 18 MCG/PUFF INHALER INHALATION SCH (08:39)
[2016-10-29] MEDS: LEVALBUTEROL NEB 1.25 MG/3 ML AMP INHALATION SCH ×3 (08:39→19:43)
[2016-10-29] MEDS: BUDESONIDE 1 MG/2 ML NEBU INHALATION SCH ×2 (08:39→19:43)
--- NOTE | 2016-10-29 10:03 | P.CNPUL ---
History of Present Illness Consult date: 10/29/16 Chief complaint: Change in mental status, delirium tremens History of present illness: 51-year-old male patient who got moved to the intensive care unit yesterday because of altered mental status, agitation, tremors, hallucinations, and symptoms typical of alcohol withdrawal. The patient is a chronic alcoholic and he drinks 4-524 ounce beer on a daily basis. He is also known to me from previous hospital admissions. He is known to have COPD along with various other comorbidities including congestion heart failure, age of fibrillation, hypertension and hyperlipidemia. He also has history of Graves' disease and the patient has been on Tapazole an outpatient basis. The patient came into the hospital originally on 10/26/2016 for acute non-ST segment elevation myocardial infarction and atrial fibrillation with rapid ventricular response. He was seen by cardiology. He was being managed on the medical floor. Infectious disease was also involved in the case as the patient was found to have MRSA in the sputum and pneumonia was suspected and the patient was started on vancomycin. For the time being, the patient is in the intensive care unit and the active issue is the reason tremors he was given a total of 8 mg of Ativan overnight and earlier this morning I was contacted by the nursing staff that the patient was still quite agitated and thrashing. Based on that, the patient was given an additional 2 mg of Ativan IV push and the patient was given 5 mg of IV Haldol. This improved his agitation and he seems to be much more comfortable at this point. No signs of any respiratory suppression or depression. No reported aspiration. He is laying comfortably in bed. Does not respond to verbal stimulation however he response to pain. He is having a snore. No signs of any respiratory distress at this point. Hemodynamically he is still in atrial fibrillation, he is on a Cardizem drip at 10 mg an hour, his IV fluids are running at 20 mL an hour, and he has no signs of any respiratory distress. The latest chest x-ray from today still shows no evidence of an acute pneumonia nor there is any evidence of heart failure. The patient is afebrile. Review of Systems Unable to obtain the review of systems due to mental status change ROS unobtainable: due to mental status Past Medical History Past Medical History: Atrial Fibrillation, Atrial Flutter, Cancer, Heart Failure , COPD, Hyperlipidemia, Hypertension, Pneumonia, Pulmonary Embolus (PE), Thyroid Disorder Additional Past Medical History / Comment(s): Pt recently admitted 10/13/16 with CHF/COPD/alcoholic cardiomyopathy/alcoholism. Other hx: Paroxysmal A flutter , CHF, cardiomyopathy with an ejection fraction of 40%, Graves disease, tremors , pulmonary embolism 04/22/2016, squamous cell skin cancer with removal. History of Any Multi-Drug Resistant Organisms: MRSA Date of last positivie culture/infection: 10/16/16 MDRO Source:: SPUTUM Past Surgical History: Adenoidectomy, Cholecystectomy, Tonsillectomy Additional Past Surgical History / Comment(s): RT HAND SX (TENDON REPAIR).RT THIGH SKIN LESION EXCISION(SQUAMOUS CELL CARCINOMA), functional endoscopic sinus surgery/septoplasty/reduction of inferior turbinates. Past Anesthesia/Blood Transfusion Reactions: No Reported Reaction Past Psychological History: Anxiety Additional Psychological History / Comment(s): Pt resides with his brother. He is independent. Smoking Status: Former smoker Past Alcohol Use History: Daily Additional Past Alcohol Use History / Comment(s): STARTED SMOKING 1983, quit 2013. Pt states he drinks 3-4 beers a day. Past Drug Use History: None Reported - Past Family History Mother Family Medical History: Cancer, Coronary Artery Disease (CAD) Additional Family Medical History / Comment(s): Mother had throat cancer and of this at the age of 68yrs. Father Additional Family Medical History / Comment(s): IN [place] WHEN PT WAS 1 YEARS OLD. Medications and Allergies Home Medications Medication Instructions Recorded Confirmed Type Primidone 50 mg PO DAILY 07/10/15 10/26/16 History Albuterol Inhaler [Ventolin Hfa 2 puff INHALATION RT-Q4H PRN 09/25/16 10/26/16 History Inhaler] Albuterol Nebulized [Ventolin 2.5 mg INHALATION RT-TID 09/25/16 10/26/16 History Nebulized] Budesonide [Pulmicort Flexhaler] 1 puff INHALATION RT-BID 09/25/16 10/26/16 History PARoxetine HCL [Paxil] 40 mg PO DAILY 09/25/16 10/26/16 History Rivaroxaban [Xarelto] 20 mg PO HS 09/25/16 10/26/16 History Tiotropium 18 Mcg/Puff [Spiriva] 1 cap INHALATION RT-DAILY 09/25/16 10/26/16 History Allergies Allergy/AdvReac Type Severity Reaction Status Date / Time warfarin [From Coumadin] AdvReac MAKES Verified 10/26/16 12:29 BLOOD TOO THIN Physical Exam Vitals: Vital Signs Temp Pulse Pulse Resp BP BP Pulse Ox 10/29/16 08:00 97.5 F L 74 63 H 121/72 93 L 10/29/16 07:00 74 23 137/72 97 10/29/16 06:00 79 24 135/78 96 10/29/16 05:00 78 20 144/76 10/29/16 03:00 75 20 114/68 95 10/29/16 02:00 75 19 132/86 98 10/29/16 01:46 75 10/29/16 00:00 74 18 103/74 99 10/28/16 21:58 100 10/28/16 21:41 100 10/28/16 21:24 18 10/28/16 20:56 96.8 F L 105 H 18 111/70 97 10/28/16 16:00 97.0 F L 111 H 18 110/72 94 L 10/28/16 12:00 98.7 F 101 H 18 110/66 90 L Intake and Output 10/28/16 10/29/16 10/29/16 22:59 06:59 14:59 Intake Total 427 205 390 Output Total 200 300 Balance 227 -95 390 Intake: IV 80 80 40 0.9 @ 20 80 80 40 Intake, IV Titration 110 125 250 Amount Diltiazem 125 mg In 110 125 Sodium Chloride 0.9% 100 ml @ 10 MG/HR 10 mls/hr IV .[id number] [facility] Rx#: [id number] Vancomycin 1,250 mg In 125 125 Sodium Chloride 0.9% 250 ml @ 125 mls/hr IVPB Q8H [facility] Rx#:[id number] Oral 237 100 Output: Urine 200 300 Other: Voiding Method Toilet Toilet Urinal # Voids 2 The patient is currently sedated, resting comfortably in bed, at times he thrashes yet these are limited activities and he is not showing significant agitation at this point. Head is atraumatic normocephalic.Neck was supple and without jugular venous distension, thyromegaly, or carotid bruits. Carotids were easily palpable bilaterally. There was no adenopathy. The patient has poor dental hygiene. No thrush. Lungs sounds are diminished bilaterally otherwise clear. No wheezes or rhonchi any crackles.Cardiac exam revealed the PMI to be normally situated and sized. The rhythm was irregular and no extrasystoles were noted during several minutes of auscultation. The first and second heart sounds were normal and physiologic splitting of the second heart sound was noted. There were no murmurs, rubs, clicks, or gallops.Abdominal exam revealed normal bowel sounds. The abdomen was soft, non-tender, and without masses, organomegaly, or appreciable enlargement of the abdominal aorta.Examination of the extremities revealed easily palpable radial, femoral and pedal pulses. There was no cyanosis, clubbing or edema. Neurologically the patient is sedated and being treated for delirium tremens. Results - Laboratory Findings CBC and BMP: 10/29/16 05:16 10/29/16 05:16 PT/INR, D-dimer PT 12.3 sec (9.0-12.0) H 10/26/16 11:52 INR 1.2 (<1.1) 10/26/16 11:52 D-Dimer 0.88 mg/L FEU (<0.60) H 10/27/16 01:07 Abnormal lab findings: Abnormal Labs 10/26/16 10/26/16 10/26/16 11:52 11:52 11:52 RBC 4.15 L Hgb 12.1 L Hct 37.4 L RDW 16.4 H PT D-Dimer Sodium BUN 30 H Glucose 169 H POC Glucose (mg/dL) AST 82 H ALT 133 H Alkaline Phosphatase 174 H Total Creatine Kinase 41 L Troponin I 0.050 H* HDL Cholesterol TSH <0.015 L Free T4 Free T3 pg/mL Urine Protein Urine Glucose (UA) Ur Barbiturates Screen 10/26/16 10/26/16 10/26/16 11:52 11:52 17:45 RBC Hgb Hct RDW PT 12.3 H D-Dimer Sodium BUN Glucose POC Glucose (mg/dL) AST ALT Alkaline Phosphatase Total Creatine Kinase 25 L Troponin I 0.035 H* HDL Cholesterol TSH Free T4 3.27 H Free T3 pg/mL 9.2 H Urine Protein Urine Glucose (UA) Ur Barbiturates Screen 10/26/16 10/26/1610/27/17 20:13 23:01 01:07 RBC Hgb Hct RDW PT D-Dimer 0.88 H Sodium BUN Glucose POC Glucose (mg/dL) AST ALT Alkaline Phosphatase Total Creatine Kinase 32 L Troponin I HDL Cholesterol TSH Free T4 Free T3 pg/mL Urine Protein Trace H Urine Glucose (UA) 1+ H Ur Barbiturates Screen Detected H 10/27/16 10/27/16 10/28/16 05:55 05:55 06:05 RBC 3.50 L 3.40 L Hgb 10.4 L 10.0 L Hct 31.8 L 31.2 L RDW 16.4 H 16.3 H PT D-Dimer Sodium BUN 23 H Glucose 109 H POC Glucose (mg/dL) AST ALT Alkaline Phosphatase Total Creatine Kinase Troponin I HDL Cholesterol 70 H TSH Free T4 Free T3 pg/mL Urine Protein Urine Glucose (UA) Ur Barbiturates Screen 10/28/16 10/29/16 10/29/16 06:05 01:45 05:16 RBC 3.36 L Hgb 9.9 L Hct 31.8 L RDW 16.3 H PT D-Dimer Sodium 134 L BUN Glucose POC Glucose (mg/dL) 214 H AST ALT Alkaline Phosphatase Total Creatine Kinase Troponin I HDL Cholesterol TSH Free T4 Free T3 pg/mL Urine Protein Urine Glucose (UA) Ur Barbiturates Screen 10/29/16 05:16 RBC Hgb Hct RDW PT D-Dimer Sodium 133 L BUN 23 H Glucose 154 H POC Glucose (mg/dL) AST ALT Alkaline Phosphatase Total Creatine Kinase Troponin I HDL Cholesterol TSH Free T4 Free T3 pg/mL Urine Protein Urine Glucose (UA) Ur Barbiturates Screen - Diagnostic Findings Chest x-ray: image reviewed Assessment and Plan Plan: Assessment 1 acute alcohol withdrawal was/delirium tremens, currently on a combination of Ativan and Haldol. 2 COPD currently inactive in stable 3 MRSA in the sputum, likely colonization repeat chest x-ray showed no evidence of pneumonia, ID is on the case 4 coronary artery disease with a recent non-ST segment elevation myocardial infarction 5 CHF with ejection fraction of 40% 6 chronic atrial fibrillation with rapid ventricular response at time of admission currently on a Cardizem drip at 10 L an hour with adequate rate control 7 previous history of pulmonary embolism maintained on long-term and to coagulation with Xarelto 8 squamous cell carcinoma of the skin, removed 9 Graves' disease currently on tapazol Plan Keep the patient intensive care unit. Increase his IV fluids to 50 mL an hour. Ativan and Haldol for delirium tremors. No need for a Ativan drip for now. 24-hour sitter at the bedside. Hold oral medications for now. Continue the Cardizem drip at 5 mg an hour for rate control. Hold the Lasix. Aspiration precautions. Seizure precautions. We'll continue to follow
[2016-10-29] MEDS: FUROSEMIDE 10 MG/ML 2 ML VIAL IV SCH ×2 (11:36→23:06)
[2016-10-29] MEDS: ASPIRIN 81 MG CHEW PO SCH (11:36)
[2016-10-29] MEDS: ATORVASTATIN 80 MG TAB PO SCH (11:36)
[2016-10-29] MEDS: FLECAINIDE 50 MG TAB PO SCH ×2 (11:36→23:06)
[2016-10-29] MEDS: PROPRANOLOL LA 60 MG CAP.SA.24H PO SCH (11:37)
[2016-10-29] MEDS: PARoxetine 20 MG TAB PO SCH (11:37)
[2016-10-29] MEDS: METHIMAZOLE 5 MG TAB PO SCH ×3 (11:37→23:06)
[2016-10-29] MEDS: PRIMIDONE 50 MG TAB PO SCH (11:37)
[2016-10-29] MEDS: PANTOPRAZOLE 40 MG/10 ML VIAL IVP SCH (12:25)
[2016-10-29] MEDS: HALOPERIDOL LACTATE 5 MG/ML 1 ML VIAL IM PRN ×5 (12:26→23:33)
[2016-10-29] MEDS: THIAMINE 100 MG TAB PO SCH ×2 (12:29→17:57)
--- NOTE | 2016-10-29 13:33 | XR ---
EXAMINATION TYPE: XR chest 1V DATE OF EXAM: 10/29/2016 10:02 AM COMPARISON: 10/26/2016 HISTORY: 51-year-old male short of breath, CHF TECHNIQUE: Single frontal view of the chest is obtained. FINDINGS: Heart is borderline enlarged. Diffuse interstitial opacities are accentuated from prior exam. Suggest ion of some Cony B lines as well. No rod consolidation or significant pleural effusion. IMPRESSION: Borderline heart size with accentuation of the interstitium. Correlate for CHF and pulmonary vascular congestion, possible early interstitial edema.
--- NOTE | 2016-10-29 22:27 | PN ---
DATE OF SERVICE: 10/29/2016 REASON FOR FOLLOWUP: MRSA tracheobronchitis. INTERVAL HISTORY: The patient has been transferred to the ICU because of DTs. The patient remains hemodynamically stable, not on any pressor support. He remains slightly lethargic and has mild chest pain and occasional cough but is not bringing up any sputum. No abdominal pain. On examination, blood pressure is 140/91 with a pulse of 94, temperature 98. He is 93% on 2 L nasal cannula. General description is a middle-aged male lying in bed in no distress. RESPIRATORY SYSTEM: Unlabored breathing. Coarse breath sounds bilaterally. No wheeze. HEART: S1, S2. Regular rate and rhythm. ABDOMEN: Soft. No tenderness. LABS: Hemoglobin is 9.9, white count 7.9 with a BUN of 23, creatinine 1.0. Vancomycin trough is on the high side. Blood culture is so far negative. Sputum was not collected. DIAGNOSTIC IMPRESSION AND PLAN: Patient with methicillin-resistant Staphylococcus aureus tracheobronchitis. Clinical suspicion remains low for any pneumonia. Had repeat x-ray done this morning that shows correlate for CHF and pulmonary vascular congestion. Recommend a very short course of vancomycin to cover for the tracheobronchitis. watch him closely. Continue supportive care. MTDD
[2016-10-29] MEDS: RIVAROXABAN 10 MG TAB PO SCH (23:06)
[2016-10-30] MEDS: LORazepam 2 MG/ML SYRINGE IV PRN (00:53)
[2016-10-30 05:06] LABS: Anion Gap 10 mmol/L; Blood Urea Nitrogen 15 mg/dL (9-20); Calcium 8.5 mg/dL (8.4-10.2); Carbon Dioxide 21 mmol/L (22-30); Chloride 105 mmol/L (98-107); Glucose 112 mg/dL (74-99); Magnesium 1.7 mg/dL (1.6-2.3); Non-African American GFR(MDRD) >60 (>60 ml/min/1.73 sqM); Phosphorous 3.5 mg/dL (2.5-4.5); Sodium 136 mmol/L (137-145)
[2016-10-30] MEDS ORDERED: Magnesium Replacement Protocol 1 EACH MISC MISCELLANE PRN (05:24)
[2016-10-30] MEDS: MAGNESIUM SULFATE-D5W PMX 1 GM in DEXTROSE/WATER 1 100ML.BAG IVPB SCH ×2 (05:49→06:36)
[2016-10-30 06:08] LABS: Basophils % (A) 0 %; CHCM 31.8; Eosinophils # (A) 0.1 k/uL (0-0.7); Eosinophils % (A) 4 %; HCT 28.9 % (39.0-53.0); HDW 2.95; HGB 9.4 gm/dL (13.0-17.5); Hypochromasia Slight; Luc # (Auto) 0.17; Luc % (Auto) 5; Lymphocytes # (A) 1.1 k/uL (1.0-4.8); Lymphocytes % (A) 30 %; MCH 29.7 pg (25.0-35.0); MCHC 32.4 g/dL (31.0-37.0); MCV 91.6 fL (80.0-100.0); Mean Platelet Volume 6.7; Monocytes # (A) 0.4 k/uL (0-1.0); Monocytes % (A) 10 %; Neutrophils # (A) 1.9 k/uL (1.3-7.7); Neutrophils % (A) 52 %; RBC 3.16 m/uL (4.30-5.90); RDW 15.9 % (11.5-15.5); WBC 3.7 k/uL (3.8-10.6); WBC (Perox) 3.81
[2016-10-30] MEDS: PANTOPRAZOLE 40 MG/10 ML VIAL IVP SCH (08:33)
[2016-10-30] MEDS: FUROSEMIDE 10 MG/ML 2 ML VIAL IV SCH (08:33)
[2016-10-30] MEDS: BUDESONIDE 1 MG/2 ML NEBU INHALATION SCH ×2 (08:51→21:23)
[2016-10-30] MEDS: LEVALBUTEROL NEB 1.25 MG/3 ML AMP INHALATION SCH ×3 (08:51→21:23)
[2016-10-30] MEDS: TIOTROPIUM 18 MCG/PUFF INHALER INHALATION SCH (09:09)
[2016-10-30] MEDS: VANCOMYCIN 1,250 MG in SODIUM CHLORIDE 0.9% 250 ML IVPB SCH ×2 (10:53→21:20)
[2016-10-30] MEDS: ASPIRIN 81 MG CHEW PO SCH (10:56)
[2016-10-30] MEDS: PRIMIDONE 50 MG TAB PO SCH (11:04)
[2016-10-30] MEDS: FLECAINIDE 50 MG TAB PO SCH ×3 (11:04→21:14)
[2016-10-30] MEDS: PARoxetine 20 MG TAB PO SCH (11:04)
[2016-10-30] MEDS: METHIMAZOLE 5 MG TAB PO SCH ×4 (11:04→21:14)
[2016-10-30] MEDS: ATORVASTATIN 80 MG TAB PO SCH (11:04)
[2016-10-30] MEDS: PROPRANOLOL LA 60 MG CAP.SA.24H PO SCH (11:04)
[2016-10-30] MEDS: THIAMINE 100 MG TAB PO SCH ×2 (12:41→17:13)
--- NOTE | 2016-10-30 13:53 | PN ---
Patient is admitted for MRSA pneumonia and patient also is being treated for atrial fibrillation, secondary to hyperparathyroidism and patient is on IV vancomycin and patient was on Cardizem drip. Anticoagulated on Xarelto. Patient also has mild diastolic dysfunction for which patient is on IV Lasix with improvement in hypovolemic hyponatremia. Patient is undergoing withdrawals and patient was having DTs and still CIWA score is around 20. Patient although is being transferred out of ICU to a stepdown unit. His DTs are definitely better than yesterday. REVIEW OF SYSTEMS: Unable to obtain as patient is sleeping when I evaluated the patient. Medications were reviewed. PHYSICAL EXAMINATION: VITAL SIGNS: Temperature 97.9, pulse of 110, respiratory rate of 14, blood pressure is 116/73, saturating at 95% on 5 L of O2 nasal cannula. GENERAL: Patient is sleeping, unable to assess orientation. LUNG EXAMINATION: Bibasilar crackles are appreciated. NEUROLOGICAL: Does not appear to have any focal deficits. CARDIOVASCULAR: S1 and S2 present, patient has irregularly irregular rhythm, tachycardic. HEENT: Pupils are round and equally reacting to light. EOMI. No scleral icterus. No conjunctival pallor. Normocephalic, atraumatic. No pharyngeal erythema. No thyromegaly. ABDOMEN: Soft, nontender, nondistended, normoactive bowel sounds. No palpable organomegaly. MUSCULOSKELETAL: No joint swelling or deformity. EXTREMITIES: No cyanosis, clubbing, or pedal edema. SKIN: No rashes. LABORATORY DATA: CBC, CMP are abnormal for low hemoglobin of 9.4 but stable, yesterday was 9.9. ASSESSMENT AND PLAN: 1. Atrial fibrillation, rate controlled at this point of time. Patient is undergoing alcohol withdrawals at this point of time. 2. acute alcoholic hepatitis. No repeat AST and ALT. All the AST and ALT ratio is not consistent with alcoholic hepatitis. Will repeat a comprehensive metabolic profile tomorrow. 3. Chronic diastolic dysfunction with exacerbation. 4. Patient does not have any alcoholic cardiomyopathy as patient's ejection fraction is normal. Patient has chronic diastolic dysfunction with acute exacerbation. 5. Graves' disease frustrating atrial fibrillation along with alcohol withdrawals. 6. History of nicotine dependence.
--- NOTE | 2016-10-30 15:22 | P.PN ---
Subjective 51-year-old male patient who got moved to the intensive care unit yesterday because of altered mental status, agitation, tremors, hallucinations, and symptoms typical of alcohol withdrawal. The patient is a chronic alcoholic and he drinks 4-524 ounce beer on a daily basis. He is also known to me from previous hospital admissions. He is known to have COPD along with various other comorbidities including congestion heart failure, age of fibrillation, hypertension and hyperlipidemia. He also has history of Graves' disease and the patient has been on Tapazole an outpatient basis. The patient came into the hospital originally on 10/26/2016 for acute non-ST segment elevation myocardial infarction and atrial fibrillation with rapid ventricular response. He was seen by cardiology. He was being managed on the medical floor. Infectious disease was also involved in the case as the patient was found to have MRSA in the sputum and pneumonia was suspected and the patient was started on vancomycin. For the time being, the patient is in the intensive care unit and the active issue is the reason tremors he was given a total of 8 mg of Ativan overnight and earlier this morning I was contacted by the nursing staff that the patient was still quite agitated and thrashing. Based on that, the patient was given an additional 2 mg of Ativan IV push and the patient was given 5 mg of IV Haldol. This improved his agitation and he seems to be much more comfortable at this point. No signs of any respiratory suppression or depression. No reported aspiration. He is laying comfortably in bed. Does not respond to verbal stimulation however he response to pain. He is having a snore. No signs of any respiratory distress at this point. Hemodynamically he is still in atrial fibrillation, he is on a Cardizem drip at 10 mg an hour, his IV fluids are running at 20 mL an hour, and he has no signs of any respiratory distress. The latest chest x-ray from today still shows no evidence of an acute pneumonia nor there is any evidence of heart failure. The patient is afebrile. On 10/30/2016 I'm seeing this patient in follow-up. He seems to be a bit more alert compared to yesterday. He was able to take his oral medications. He is less agitated. There is a 24 hour sitter at the bedside. No aspiration. No seizure activity. He remains in atrial fibrillation and is on a Cardizem drip for rate control. Respiratory status is stable. No cough. No sputum production. No chest pain. No other significant events overnight. Objective - Vital Signs Vital signs: Vital Signs Temp 97.9 F 10/30/16 12:00 Pulse 102 H 10/30/16 13:00 Resp 22 10/30/16 13:00 BP 129/85 10/30/16 13:00 Pulse Ox 94 L 10/30/16 13:00 Intake & Output 10/29/16 10/30/16 10/30/16 18:59 06:59 18:59 Intake Total 680 995.917 350 Output Total 304 618 6392 Balance -20 545.917 -1850 Weight 71.5 kg Intake: IV 330 570 350 0.9 @ 20 330 570 100 Vancomycin 1,250 mg In 250 Sodium Chloride 0.9% 250 ml @ 125 mls/hr IVPB Q12HR [facility] Rx#:[id number] Intake, IV Titration 250 325.917 Amount Diltiazem 125 mg In 125 75.917 Sodium Chloride 0.9% 100 ml @ 10 MG/HR 10 mls/hr IV .[id number] [facility] Rx#: [id number] Vancomycin 1,250 mg In 250 Sodium Chloride 0.9% 250 ml @ 125 mls/hr IVPB Q12HR [facility] Rx#:[id number] Vancomycin 1,250 mg In 125 Sodium Chloride 0.9% 250 ml @ 125 mls/hr IVPB Q8H [facility] Rx#:[id number] Oral 100 100 Output: Urine 795 995 3825 Other: Voiding Method Urinal Urinal Urinal # Voids 1 - Exam The patient is currently sedated, resting comfortably in bed, at times he thrashes yet these are limited activities and he is not showing significant agitation at this point. The patient opens up his eyes and he responds to simple commands and answers some simple questions. Head is atraumatic normocephalic.Neck was supple and without jugular venous distension, thyromegaly , or carotid bruits. Carotids were easily palpable bilaterally. There was no adenopathy. The patient has poor dental hygiene. No thrush. Lungs sounds are diminished bilaterally otherwise clear. No wheezes or rhonchi any crackles.Cardiac exam revealed the PMI to be normally situated and sized. The rhythm was irregular and no extrasystoles were noted during several minutes of auscultation. The first and second heart sounds were normal and physiologic splitting of the second heart sound was noted. There were no murmurs, rubs, clicks, or gallops.Abdominal exam revealed normal bowel sounds. The abdomen was soft, non-tender, and without masses, organomegaly, or appreciable enlargement of the abdominal aorta.Examination of the extremities revealed easily palpable radial, femoral and pedal pulses. There was no cyanosis, clubbing or edema. - Labs CBC & Chem 7: 10/30/16 04:25 10/30/16 04:25 Labs: Abnormal Lab Results - Last 24 Hours (Table) 10/30/16 10/30/16 Range/Units 04:25 04:25 WBC 3.7 L (3.8-10.6) k/uL RBC 3.16 L (4.30-5.90) m/uL Hgb 9.4 L (13.0-17.5) gm/dL Hct 28.9 L (39.0-53.0) % RDW 15.9 H (11.5-15.5) % Plt Count 149 L (150-450) k/uL Sodium 136 L (137-145) mmol/L Carbon Dioxide 21 L (22-30) mmol/L Glucose 112 H (74-99) mg/dL Microbiology - Last 24 Hours (Table) 10/27/16 15:04 Blood Culture - Preliminary Blood No Growth after 48 hours 10/27/16 15:04 Blood Culture - Preliminary Blood No Growth after 48 hours Assessment and Plan Plan: Assessment 1 acute alcohol withdrawal was/delirium tremens, currently on a combination of Ativan and Haldol. 2 COPD currently inactive in stable 3 MRSA in the sputum, likely colonization repeat chest x-ray showed no evidence of pneumonia, ID is on the case 4 coronary artery disease with a recent non-ST segment elevation myocardial infarction 5 CHF with ejection fraction of 40% 6 chronic atrial fibrillation with rapid ventricular response at time of admission currently on a Cardizem drip at 10 L an hour with adequate rate control 7 previous history of pulmonary embolism maintained on long-term and to coagulation with Xarelto 8 squamous cell carcinoma of the skin, removed 9 Graves' disease currently on tapazol Plan The patient is stable for now. We'll monitor this patient's condition up in the medical floor with telemetry privileges. He'll be transferred to [facility]. He will need 24 hour sitter still. Continue Ativan and Haldol as needed. Rest of the medication be kept unchanged. This continued IV Lasix. Chest x-ray from today was reviewed. There is borderline cardiomegaly with some accentuation of the interstitium. No airspace disease or pneumonias identified.
--- NOTE | 2016-10-30 16:45 | PN ---
DATE OF SERVICE: 10/30/2016 REASON FOR FOLLOWUP: MRSA tracheobronchitis. INTERVAL HISTORY: The patient is afebrile. He is still going through DTs and has received Ativan. He was sleeping at the time of my evaluation. No significant agitation has been noticed. per sitter present at bedside. No nausea, vomiting or any diarrhea per the RN. On examination, blood pressure is 129/85 with a pulse of 102, temperature 97.9. He is 95% on 5 L nasal cannula. General description is a middle-aged male lying in bed in no distress. RESPIRATORY SYSTEM: Unlabored breathing with decreased intensity of breath sounds. No wheeze. HEART: S1, S2. Regular rate and rhythm. ABDOMEN: Soft. No tenderness. LABS: Hemoglobin 9.4, white count 3.7, BUN of 15, creatinine 0.70. Vancomycin trough was slightly on the high side. DIAGNOSTIC IMPRESSION AND PLAN: Patient admitted to hospital with difficulty in breathing which was likely multifactorial; possibly due to underlying COPD exacerbation with tracheobronchitis not entirely excluded, with recent sputum culture with an MRSA. Cultures were requested on this admission. They were not done. However, no evidence of any pneumonia. The patient will begin a very short course of vancomycin, probably 5 to 7 days maximum. Vancomycin dose needs to be adjusted by the pharmacy to keep the trough lower than 15. Will reevaluate patient tomorrow. Continue supportive care. MTDD
[2016-10-30] MEDS: DILTIAZEM 125 MG in SODIUM CHLORIDE 0.9% 100 ML IV SCH (20:42)
[2016-10-30] MEDS: RIVAROXABAN 10 MG TAB PO SCH (21:13)
[2016-10-31] MEDS: LORazepam 2 MG/ML SYRINGE IV PRN ×4 (00:50→20:36)
[2016-10-31] MEDS: PANTOPRAZOLE 40 MG TABLET PO SCH (06:28)
[2016-10-31 08:23] LABS: ALT 183 U/L (21-72); AST 120 U/L (17-59); Alkaline Phosphatase 98 U/L (38-126); Anion Gap 7 mmol/L; Blood Urea Nitrogen 10 mg/dL (9-20); Calcium 8.4 mg/dL (8.4-10.2); Carbon Dioxide 26 mmol/L (22-30); Chloride 106 mmol/L (98-107); Glucose 112 mg/dL (74-99); Magnesium 1.8 mg/dL (1.6-2.3); Non-African American GFR(MDRD) >60 (>60 ml/min/1.73 sqM); Potassium 3.6 mmol/L (3.5-5.1); Sodium 139 mmol/L (137-145); Total Bilirubin 1.3 mg/dL (0.2-1.3); Total Protein 5.3 g/dL (6.3-8.2)
[2016-10-31] MEDS: FLECAINIDE 50 MG TAB PO SCH (09:22)
[2016-10-31] MEDS: METHIMAZOLE 5 MG TAB PO SCH ×3 (09:22→20:37)
[2016-10-31] MEDS: PRIMIDONE 50 MG TAB PO SCH (09:22)
[2016-10-31] MEDS: ATORVASTATIN 80 MG TAB PO SCH (09:23)
[2016-10-31] MEDS: PROPRANOLOL LA 60 MG CAP.SA.24H PO SCH (09:23)
[2016-10-31] MEDS: ASPIRIN 81 MG CHEW PO SCH (09:23)
[2016-10-31] MEDS: PARoxetine 20 MG TAB PO SCH (09:24)
[2016-10-31] MEDS: DILTIAZEM 125 MG in SODIUM CHLORIDE 0.9% 100 ML IV SCH (09:34)
[2016-10-31] MEDS: THIAMINE 100 MG TAB PO SCH ×2 (11:11→16:57)
[2016-10-31] MEDS: VANCOMYCIN 1,250 MG in SODIUM CHLORIDE 0.9% 250 ML IVPB SCH ×2 (11:11→20:53)
[2016-10-31] MEDS: BUDESONIDE 1 MG/2 ML NEBU INHALATION SCH ×2 (11:50→20:30)
[2016-10-31] MEDS: LEVALBUTEROL NEB 1.25 MG/3 ML AMP INHALATION SCH ×3 (11:50→20:30)
[2016-10-31] MEDS ORDERED: PROPRANOLOL LA 60 MG CAP.SA.24H PO STA (12:22)
--- NOTE | 2016-10-31 12:44 | PN ---
Stone Law is lying comfortably in bed. He is sleeping. His atrial fibrillation rates are not controlled. He remains in atrial fibrillation despite being on flecainide 50 mg twice daily. His vitals are as follows: He is afebrile at 98.9 degrees Fahrenheit. Heart rates are in the 130s. He is on an IV Cardizem drip at 10 mg per hour. Blood pressure 112/70 mmHg, 139/75 mmHg. Respirations are normal. Breath sounds are reduced bilaterally with no rhonchi, no crackles. Heart sounds are tachycardic and irregular. No edema. IMPRESSION: 1. Hyperthyroidism, on methimazole. 2. Atrial fibrillation with rapid ventricular response despite Inderal LA 120 mg a day and Cardizem drip 10 mg/hour. Flecainide did not suppress the arrhythmia and is therefore being discontinued. 3. History of alcoholism. SUGGEST: 1. No more alcohol, please. 2. Increase Inderal to 240 mg p.o. daily. Will give him an extra dose today. We will stop the flecainide. Hopefully by tomorrow we should be able to stop the Cardizem completely.
--- NOTE | 2016-10-31 14:21 | P.PN ---
Subjective 51-year-old male patient who got moved to the intensive care unit yesterday because of altered mental status, agitation, tremors, hallucinations, and symptoms typical of alcohol withdrawal. The patient is a chronic alcoholic and he drinks 4-524 ounce beer on a daily basis. He is also known to me from previous hospital admissions. He is known to have COPD along with various other comorbidities including congestion heart failure, age of fibrillation, hypertension and hyperlipidemia. He also has history of Graves' disease and the patient has been on Tapazole an outpatient basis. The patient came into the hospital originally on 10/26/2016 for acute non-ST segment elevation myocardial infarction and atrial fibrillation with rapid ventricular response. He was seen by cardiology. He was being managed on the medical floor. Infectious disease was also involved in the case as the patient was found to have MRSA in the sputum and pneumonia was suspected and the patient was started on vancomycin. For the time being, the patient is in the intensive care unit and the active issue is the reason tremors he was given a total of 8 mg of Ativan overnight and earlier this morning I was contacted by the nursing staff that the patient was still quite agitated and thrashing. Based on that, the patient was given an additional 2 mg of Ativan IV push and the patient was given 5 mg of IV Haldol. This improved his agitation and he seems to be much more comfortable at this point. No signs of any respiratory suppression or depression. No reported aspiration. He is laying comfortably in bed. Does not respond to verbal stimulation however he response to pain. He is having a snore. No signs of any respiratory distress at this point. Hemodynamically he is still in atrial fibrillation, he is on a Cardizem drip at 10 mg an hour, his IV fluids are running at 20 mL an hour, and he has no signs of any respiratory distress. The latest chest x-ray from today still shows no evidence of an acute pneumonia nor there is any evidence of heart failure. The patient is afebrile. On 10/30/2016 I'm seeing this patient in follow-up. He seems to be a bit more alert compared to yesterday. He was able to take his oral medications. He is less agitated. There is a 24 hour sitter at the bedside. No aspiration. No seizure activity. He remains in atrial fibrillation and is on a Cardizem drip for rate control. Respiratory status is stable. No cough. No sputum production. No chest pain. No other significant events overnight. On 10/31/2016 I'm seeing this patient in follow-up. The patient is calm and comfortable. He is oriented. No respiratory distress. No change in mental status. His resting comfortably in bed. No chest pain. No cough or sputum production. No other significant events overnight. The patient remains on a Cardizem drip for his atrial fibrillation which is running at 10 mg an hour. Objective - Vital Signs Vital signs: Vital Signs Temp 98.9 F 10/31/16 08:00 Pulse 127 H 10/31/16 12:00 Resp 18 10/31/16 12:00 BP 112/70 10/31/16 12:00 Pulse Ox 95 10/31/16 12:00 Intake & Output 10/30/16 10/31/16 10/31/16 18:59 06:59 18:59 Intake Total 350 515.583 64.333 Output Total 2200 720 200 Balance -1850 -204.417 -135.667 Weight 73.7 kg Intake: IV 350 410 0.9 @ 20 100 160 Vancomycin 1,250 mg In 250 250 Sodium Chloride 0.9% 250 ml @ 125 mls/hr IVPB Q12HR [facility] Rx#:[id number] Intake, IV Titration 105.583 64.333 Amount Diltiazem 125 mg In 105.583 64.333 Sodium Chloride 0.9% 100 ml @ 10 MG/HR 10 mls/hr IV .[id number] [facility] Rx#: [id number] Oral 0 Output: Urine 2200 720 200 Other: Voiding Method Urinal # Voids 1 - Exam The patient is currently awake and alert and comfortable, resting comfortably in bed, at times he thrashes yet these are limited activities and he is not showing significant agitation at this point. The patient opens up his eyes and he responds to simple commands and answers some simple questions. Head is atraumatic normocephalic.Neck was supple and without jugular venous distension, thyromegaly, or carotid bruits. Carotids were easily palpable bilaterally. There was no adenopathy. The patient has poor dental hygiene. No thrush. Lungs sounds are diminished bilaterally otherwise clear. No wheezes or rhonchi any crackles.Cardiac exam revealed the PMI to be normally situated and sized. The rhythm was irregular and no extrasystoles were noted during several minutes of auscultation. The first and second heart sounds were normal and physiologic splitting of the second heart sound was noted. There were no murmurs, rubs, clicks, or gallops.Abdominal exam revealed normal bowel sounds. The abdomen was soft, non-tender, and without masses, organomegaly, or appreciable enlargement of the abdominal aorta.Examination of the extremities revealed easily palpable radial, femoral and pedal pulses. There was no cyanosis, clubbing or edema. - Labs CBC & Chem 7: 10/30/16 04:25 10/31/16 05:53 Labs: Abnormal Lab Results - Last 24 Hours (Table) 10/31/16 Range/Units 05:53 Glucose 112 H (74-99) mg/dL AST 120 H (17-59) U/L ALT 183 H (21-72) U/L Total Protein 5.3 L (6.3-8.2) g/dL Albumin 2.5 L (3.5-5.0) g/dL Microbiology - Last 24 Hours (Table) 10/27/16 15:04 Blood Culture - Preliminary Blood No Growth after 72 hours 10/27/16 15:04 Blood Culture - Preliminary Blood No Growth after 72 hours Assessment and Plan Plan: Assessment 1 acute alcohol withdrawal was/delirium tremens, , recovered 2 COPD currently inactive in stable 3 MRSA in the sputum, likely colonization repeat chest x-ray showed no evidence of pneumonia, ID is on the case 4 coronary artery disease with a recent non-ST segment elevation myocardial infarction 5 CHF with ejection fraction of 40% 6 chronic atrial fibrillation with rapid ventricular response at time of admission currently on a Cardizem drip at 10 L an hour with adequate rate control 7 previous history of pulmonary embolism maintained on long-term and to coagulation with Xarelto 8 squamous cell carcinoma of the skin, removed 9 Graves' disease currently on tapazol Plan The patient is stable for now. Management of atrial fibrillation per cardiology. Pulmonary status is stable. We'll follow
[2016-10-31] MEDS: TIOTROPIUM 18 MCG/PUFF INHALER INHALATION SCH (16:11)
[2016-10-31] MEDS ORDERED: LEVALBUTEROL NEB 1.25 MG/3 ML AMP INHALATION PRN (17:43)
[2016-10-31] MEDS ORDERED: Potassium Replacement Protocol 1 EACH MISC MISCELLANE PRN (17:45)
[2016-10-31] MEDS ORDERED: POTASSIUM CHLORIDE ER 20 MEQ TAB.ER PO SCH ×2 (18:00→20:00)
--- NOTE | 2016-10-31 19:38 | PN ---
DATE OF SERVICE: 10/31/2016 INTERVAL HISTORY: Mr. Hernandez is a 51-year-old male with a past medical history of significant alcohol abuse and COPD, congestive heart failure, hypertension, hyperlipidemia, PE, thyroid disorder, admitted to the hospital for altered mental status changes. Patient was initially in the ICU for agitation, tremors, hallucination, the symptoms which are typical for alcohol withdrawal. The patient is a chronic alcoholic and he drinks alcohol on a daily basis. He had COPD and also history of Grave's disease. At the time of admission, the patient had NSTEMI and atrial fibrillation with rapid ventricular response. He is currently in A. fib still on a Cardizem drip at 10 mcg. Patient was also found to have MRSA in his sputum and is currently on vancomycin. Patient states that he is having difficulty in breathing since this morning and also complains of some audible wheezes, which are also reported by the nursing staff. He is on CIWA scale and has been getting Ativan REVIEW OF SYSTEMS: CONSTITUTIONAL: Denies any fevers, chills, rigors. RESPIRATORY: Difficulty in breathing with wheezes. CARDIAC: Positive for chest palpitations. No chest pain. GI: No abdominal pain, nausea, vomiting, or diarrhea. Patient's medications have been reviewed. On examination, patient's vital signs are temperature 97.5, heart rate 98, respiratory rate 18, blood pressure 104/58, saturating at 96% on 4 liters of nasal cannula. GENERAL EXAMINATION: Patient appears to be no acute distress. HEAD: Atraumatic, normocephalic. EYES: Pupils equal, round and reactive to light. NECK: No JVD. No thyromegaly. CARDIOVASCULAR: S1, S2 heard. LUNGS: Positive for mild wheezes bilaterally and basilar crackles. ABDOMEN: Soft, nontender. No organomegaly. Bowel sounds are positive. EXTREMITIES: No edema. No cyanosis. The patient has bruises at the place that he had the blood draws. TRANSIT MANAGER: Alert and oriented x3. No focal neurological deficits. The patient has a slight tremor with extension of his hands. PSYCHIATRIC: Appropriate mood and affect. Patient's labs: White count of 3.7, hemoglobin is 9.4, platelets of 149, sodium 139, potassium 3.6, chloride 106, bicarb 26, BUN 10, creatinine 0.72, AST 128, AST 183. Albumin is 2.5. ASSESSMENT AND PLAN: 1. Non-ST elevation myocardial infarction. 2. Atrial fibrillation, persistent. 3. Acute alcoholic hepatitis. 4. Acute exacerbation of chronic diastolic dysfunction. 5. History of Grave's disease. 6. Methicillin-resistant Staphylococcus aureus in the sputum. 7. Previous history of pulmonary embolism on long-term anticoagulation with Xarelto. 8. Squamous cell carcinoma of the skin that is to removed. 9. History of nicotine dependence. 10. History of alcohol abuse. PLAN: His atrial fibrillation, is currently being managed by Cardiology, Dr. Martins. He is still on 10 mg per hour of Cardizem drip and his Inderal dose has been increased today. As the patient is wheezing he has been started on breathing treatments. We will continue with vancomycin for his MRSA in the sputum. ID, Dr. Ross, on board and following the patient. Continue with DT precautions and continue with methimazole for his Grave's disease. Will continue with the current medication regimen and further recommendations to follow depending on the progress of the patient. Overall prognosis is guarded.
[2016-10-31] MEDS: HYDROcodone/APAP 5-325MG 1 EACH TAB PO PRN (20:36)
[2016-10-31] MEDS: RIVAROXABAN 10 MG TAB PO SCH (20:36)
[2016-11-01] MEDS: LORazepam 2 MG/ML SYRINGE IV PRN ×3 (03:16→20:26)
[2016-11-01] MEDS: DILTIAZEM 125 MG in SODIUM CHLORIDE 0.9% 100 ML IV SCH ×4 (03:17→06:06)
[2016-11-01 05:42] LABS: Glucose,Whole Blood 134 mg/dL (75-99)
[2016-11-01] MEDS: methylPREDNISolone SOD SUCCI 125 MG/2 ML VIAL IV SCH ×4 (06:00→23:06)
[2016-11-01] MEDS: INSULIN LISPRO (humaLOG) 300 UNIT/3 ML VIAL SQ SCH ×4 (06:01→21:20)
[2016-11-01] MEDS: PANTOPRAZOLE 40 MG TABLET PO SCH (06:31)
[2016-11-01 08:13] LABS: Basophils % (A) 0 %; CH 28.4; CHCM 30.6; Eosinophils # (A) 0.1 k/uL (0-0.7); Eosinophils % (A) 2 %; HCT 32.8 % (39.0-53.0); HDW 3.17; Hypochromasia Moderate; Luc # (Auto) 0.09; Luc % (Auto) 2; Lymphocytes # (A) 0.6 k/uL (1.0-4.8); Lymphocytes % (A) 10 %; MCH 28.5 pg (25.0-35.0); MCHC 30.6 g/dL (31.0-37.0); MCV 93.3 fL (80.0-100.0); Mean Platelet Volume 6.8; Monocytes # (A) 0.3 k/uL (0-1.0); Monocytes % (A) 5 %; Neutrophils # (A) 4.6 k/uL (1.3-7.7); Neutrophils % (A) 82 %; RBC 3.52 m/uL (4.30-5.90); RDW 15.8 % (11.5-15.5); WBC 5.6 k/uL (3.8-10.6); WBC (Perox) 6.15
[2016-11-01 08:35] LABS: ALT 197 U/L (21-72); AST 95 U/L (17-59); Alkaline Phosphatase 107 U/L (38-126); Anion Gap 6 mmol/L; Blood Urea Nitrogen 13 mg/dL (9-20); Calcium 8.8 mg/dL (8.4-10.2); Carbon Dioxide 25 mmol/L (22-30); Chloride 107 mmol/L (98-107); Glucose 206 mg/dL (74-99); Non-African American GFR(MDRD) >60 (>60 ml/min/1.73 sqM); Potassium 4.7 mmol/L (3.5-5.1); Sodium 138 mmol/L (137-145); Total Bilirubin 1.4 mg/dL (0.2-1.3); Total Protein 6.1 g/dL (6.3-8.2)
[2016-11-01] MEDS: ASPIRIN 81 MG CHEW PO SCH (08:36)
[2016-11-01] MEDS: METHIMAZOLE 5 MG TAB PO SCH ×3 (08:36→20:27)
[2016-11-01] MEDS: PROPRANOLOL LA 80 MG CAP.SA.24H PO SCH (08:36)
[2016-11-01] MEDS: PARoxetine 20 MG TAB PO SCH (08:36)
[2016-11-01] MEDS: ATORVASTATIN 80 MG TAB PO SCH (08:36)
[2016-11-01] MEDS: PRIMIDONE 50 MG TAB PO SCH (08:36)
[2016-11-01] MEDS: VANCOMYCIN 1,250 MG in SODIUM CHLORIDE 0.9% 250 ML IVPB SCH ×2 (08:37→21:21)
[2016-11-01] MEDS ORDERED: POTASSIUM CHLORIDE ER 20 MEQ TAB.ER PO SCH (09:00)
[2016-11-01] MEDS: BUDESONIDE 1 MG/2 ML NEBU INHALATION SCH ×2 (11:00→20:12)
[2016-11-01] MEDS: LEVALBUTEROL NEB 1.25 MG/3 ML AMP INHALATION SCH ×3 (11:00→20:12)
[2016-11-01] MEDS: TIOTROPIUM 18 MCG/PUFF INHALER INHALATION SCH (11:10)
[2016-11-01 12:11] LABS: Glucose,Whole Blood 193 mg/dL (75-99)
[2016-11-01 12:14] LABS: Hemoglobin A1C 5.4 % (4.2-6.1)
[2016-11-01] MEDS: THIAMINE 100 MG TAB PO SCH ×2 (12:39→17:32)
--- NOTE | 2016-11-01 13:52 | P.PN ---
Subjective 51-year-old male patient who got moved to the intensive care unit yesterday because of altered mental status, agitation, tremors, hallucinations, and symptoms typical of alcohol withdrawal. The patient is a chronic alcoholic and he drinks 4-524 ounce beer on a daily basis. He is also known to me from previous hospital admissions. He is known to have COPD along with various other comorbidities including congestion heart failure, age of fibrillation, hypertension and hyperlipidemia. He also has history of Graves' disease and the patient has been on Tapazole an outpatient basis. The patient came into the hospital originally on 10/26/2016 for acute non-ST segment elevation myocardial infarction and atrial fibrillation with rapid ventricular response. He was seen by cardiology. He was being managed on the medical floor. Infectious disease was also involved in the case as the patient was found to have MRSA in the sputum and pneumonia was suspected and the patient was started on vancomycin. For the time being, the patient is in the intensive care unit and the active issue is the reason tremors he was given a total of 8 mg of Ativan overnight and earlier this morning I was contacted by the nursing staff that the patient was still quite agitated and thrashing. Based on that, the patient was given an additional 2 mg of Ativan IV push and the patient was given 5 mg of IV Haldol. This improved his agitation and he seems to be much more comfortable at this point. No signs of any respiratory suppression or depression. No reported aspiration. He is laying comfortably in bed. Does not respond to verbal stimulation however he response to pain. He is having a snore. No signs of any respiratory distress at this point. Hemodynamically he is still in atrial fibrillation, he is on a Cardizem drip at 10 mg an hour, his IV fluids are running at 20 mL an hour, and he has no signs of any respiratory distress. The latest chest x-ray from today still shows no evidence of an acute pneumonia nor there is any evidence of heart failure. The patient is afebrile. On 10/30/2016 I'm seeing this patient in follow-up. He seems to be a bit more alert compared to yesterday. He was able to take his oral medications. He is less agitated. There is a 24 hour sitter at the bedside. No aspiration. No seizure activity. He remains in atrial fibrillation and is on a Cardizem drip for rate control. Respiratory status is stable. No cough. No sputum production. No chest pain. No other significant events overnight. On 10/31/2016 I'm seeing this patient in follow-up. The patient is calm and comfortable. He is oriented. No respiratory distress. No change in mental status. His resting comfortably in bed. No chest pain. No cough or sputum production. No other significant events overnight. The patient remains on a Cardizem drip for his atrial fibrillation which is running at 10 mg an hour.On 11/01/2016, the patient is wide awake alert and there are no signs of delirium tremens. Nevertheless, he is having some increased shortness of breath typical of an acute COPD exacerbation. He was started on systemic steroids. I give him IV Solu Medrol 60 mg IV push every 6 hours. He is also on a Cardizem drip regarding his atrial fibrillation and his current rate is down to 5 mg an hour. No chest pain. He is tolerating his diet. Objective - Vital Signs Vital signs: Vital Signs Temp 97.1 F L 11/01/16 08:00 Pulse 84 11/01/16 11:20 Resp 18 11/01/16 08:00 BP 143/90 11/01/16 08:00 Pulse Ox 93 L 11/01/16 08:00 Intake & Output 10/31/16 11/01/16 11/01/16 18:59 06:59 18:59 Intake Total 64.333 492.5 360 Output Total 400 Balance -335.667 492.5 360 Weight 75.7 kg Intake: IV 140 0.9 @ 20 140 Intake, IV Titration 64.333 352.5 Amount Diltiazem 125 mg In 64.333 102.5 Sodium Chloride 0.9% 100 ml @ 5 MG/HR 5 mls/hr IV .Q24H [facility] Rx#:[id number] Vancomycin 1,250 mg In 250 Sodium Chloride 0.9% 250 ml @ 125 mls/hr IVPB Q12HR [facility] Rx#:[id number] Oral 0 360 Output: Urine 400 Other: Voiding Method Urinal # Voids 1 # Bowel Movements 1 - Exam The patient is currently awake and alert and comfortable, resting comfortably in bed, at times he thrashes yet these are limited activities and he is not showing significant agitation at this point. The patient opens up his eyes and he responds to simple commands and answers some simple questions. Head is atraumatic normocephalic.Neck was supple and without jugular venous distension, thyromegaly, or carotid bruits. Carotids were easily palpable bilaterally. There was no adenopathy. The patient has poor dental hygiene. No thrush. Lungs sounds are diminished bilaterally otherwise clear. Bilateral expiratory wheezes without rhonchi or crackles.Cardiac exam revealed the PMI to be normally situated and sized. The rhythm was irregular and no extrasystoles were noted during several minutes of auscultation. The first and second heart sounds were normal and physiologic splitting of the second heart sound was noted. There were no murmurs, rubs, clicks, or gallops.Abdominal exam revealed normal bowel sounds. The abdomen was soft, non-tender, and without masses, organomegaly , or appreciable enlargement of the abdominal aorta.Examination of the extremities revealed easily palpable radial, femoral and pedal pulses. There was no cyanosis, clubbing or edema. - Labs CBC & Chem 7: 11/01/16 07:45 11/01/16 07:45 Labs: Abnormal Lab Results - Last 24 Hours (Table) 11/01/16 11/01/16 11/01/16 Range/Units 05:41 07:45 07:45 RBC 3.52 L (4.30-5.90) m/uL Hgb 10.0 L (13.0-17.5) gm/dL Hct 32.8 L (39.0-53.0) % MCHC 30.6 L (31.0-37.0) g/dL RDW 15.8 H (11.5-15.5) % Lymphocytes # 0.6 L (1.0-4.8) k/uL Glucose 206 H (74-99) mg/dL POC Glucose (mg/dL) 134 H (75-99) mg/dL Total Bilirubin 1.4 H (0.2-1.3) mg/dL AST 95 H (17-59) U/L ALT 197 H (21-72) U/L Total Protein 6.1 L (6.3-8.2) g/dL Albumin 3.1 L (3.5-5.0) g/dL 11/01/16 Range/Units 12:09 RBC (4.30-5.90) m/uL Hgb (13.0-17.5) gm/dL Hct (39.0-53.0) % MCHC (31.0-37.0) g/dL RDW (11.5-15.5) % Lymphocytes # (1.0-4.8) k/uL Glucose (74-99) mg/dL POC Glucose (mg/dL) 193 H (75-99) mg/dL Total Bilirubin (0.2-1.3) mg/dL AST (17-59) U/L ALT (21-72) U/L Total Protein (6.3-8.2) g/dL Albumin (3.5-5.0) g/dL Microbiology - Last 24 Hours (Table) 10/27/16 15:04 Blood Culture - Preliminary Blood No Growth after 96 hours 10/27/16 15:04 Blood Culture - Preliminary Blood No Growth after 96 hours Assessment and Plan Plan: Assessment 1 acute alcohol withdrawal was/delirium tremens, , recovered 2 COPD exacerbation with secondary shortness of breath 3 MRSA in the sputum, likely colonization repeat chest x-ray showed no evidence of pneumonia, ID is on the case 4 coronary artery disease with a recent non-ST segment elevation myocardial infarction 5 CHF with ejection fraction of 40% 6 chronic atrial fibrillation with rapid ventricular response at time of admission currently on a Cardizem drip at 10 L an hour with adequate rate control 7 previous history of pulmonary embolism maintained on long-term and to coagulation with Xarelto 8 squamous cell carcinoma of the skin, removed 9 Graves' disease currently on tapazol Plan the patient systemic steroids IV Solu-Medrol 60 every 6 hours. Continue the DuoNeb nebulized treatments. Pulmicort Respules 1 mg neb last treatment twice a day. Continue Cardizem drip at 5 mg an hour.. Management of atrial fibrillation per cardiology. We'll follow the case along with aggressive the consultants. No signs of an acute delirium tremens which is essentially recovered.
[2016-11-01 17:03] LABS: Glucose,Whole Blood 185 mg/dL (75-99)
[2016-11-01] MEDS: RIVAROXABAN 10 MG TAB PO SCH (20:27)
[2016-11-01] MEDS: HYDROcodone/APAP 5-325MG 1 EACH TAB PO PRN (20:32)
--- NOTE | 2016-11-01 21:05 | PN ---
DATE OF SERVICE: 11/01/2016 INTERVAL HISTORY: Mr. Law is a 51-year-old man with a past medical history of alcohol abuse, chronic obstructive pulmonary disease, congestive heart failure, hypertension, hyperlipidemia, PE, thyroid disorder, admitted to the hospital for altered mental status changes. The patient was initially in the ICU for agitation delirium tremens, the symptoms, which are typical for alcohol withdrawal. The patient is a chronic alcoholic and drinks alcohol on a daily basis. At the time of admission, he was also found to have NSTEMI and atrial fibrillation with rapid ventricular rate. He was started on Cardizem drip and after stabilization has been transferred to general medical floor. Patient was also found to have MRSA in his sputum and currently is on vancomycin. Today, the patient is comfortably, sitting in the bed, appears to be no acute distress. He does not have had any active ongoing complaints. REVIEW OF SYSTEMS: CONSTITUTIONAL: Denies any fever, chills, or rigors. RESPIRATORY: No cough. No difficulty in breathing. He states that his difficulty in breathing has been better today. CARDIAC: Positive for chest palpitations. No chest pain. GI: No abdominal pain, nausea, vomiting, or diarrhea. Patient's medications have been reviewed. On examination, patient's vital signs temperature 96.7, heart rate 79, respiratory rate 18, blood pressure 127/68, saturating at 92% on 3 liters of nasal cannula. GENERAL EXAMINATION: Patient appears to be in no acute distress. He is poorly kempt. HEAD: Atraumatic, normocephalic. EYES: Pupils, round, and reactive to light. NECK: No JVD. No thyromegaly. CARDIOVASCULAR: S1, S2 heard, irregularly irregular. LUNGS: Diminished breath sounds in all lung dewitt. No wheezes appreciated. ABDOMEN: Soft, nontender. Bowel sounds positive. EXTREMITIES: No edema. No cyanosis. The patient has bruises at the site of blood draws. ACCREDITATION MANAGER: Alert, awake, oriented x3. No focal deficits. Patient has slight tremors extension of his hands. PSYCHIATRIC: Appropriate mood and affect. Patient's labs: White count of 5.6, hemoglobin 10, platelets of 259. Sodium 138, potassium 4.7, chloride 107, bicarb 25, BUN 13, creatinine 0.72. Albumin 3.7. Total protein of 6.1. AST 95, ALT 197. ASSESSMENT AND PLAN: 1. Non-ST elevation myocardial infarction. 2. Atrial fibrillation, persistent. 3. Acute alcoholic hepatitis. 4. Acute chronic obstructive pulmonary disease exacerbation. 5. Acute exacerbation of chronic diastolic dysfunction. 6. History of Grave's disease. 7. Methicillin-resistant Staph aureus in the sputum. 8. Previous history of pulmonary embolism on Xarelto. 9. Squamous cell carcinoma of the skin that is removed. 10. History of nicotine dependence. 11. History of alcohol abuse. PLAN: The patient is still in A. fib with RVR, still on 5 mg per hour of Cardizem drip and Dr. Martins on board and adjusting his medications. Patient shows significant improvement in his wheezing since starting on breathing treatments. We will continue with vancomycin for his MRSA in the sputum. Continue with DT precautions. Continue with methimazole for his Grave's disease and continue with the rest of his medication regimen. Overall prognosis is guarded. Further recommendations to follow depending on the progress of the patient.
[2016-11-01 21:27] LABS: Glucose,Whole Blood 241 mg/dL (75-99)
[2016-11-02] MEDS: LORazepam 2 MG/ML SYRINGE IV PRN (02:38)
[2016-11-02] MEDS: HYDROcodone/APAP 5-325MG 1 EACH TAB PO PRN ×2 (02:38→09:20)
[2016-11-02 06:37] LABS: Basophils % (A) 0 %; CH 28.9; CHCM 31.6; Eosinophils % (A) 0 %; HCT 30.2 % (39.0-53.0); HDW 3.22; HGB 9.4 gm/dL (13.0-17.5); Hypochromasia Slight; Luc # (Auto) 0.06; Luc % (Auto) 1; Lymphocytes # (A) 0.7 k/uL (1.0-4.8); Lymphocytes % (A) 12 %; MCH 28.6 pg (25.0-35.0); MCHC 31.1 g/dL (31.0-37.0); MCV 91.7 fL (80.0-100.0); Mean Platelet Volume 6.9; Monocytes # (A) 0.2 k/uL (0-1.0); Monocytes % (A) 3 %; Neutrophils # (A) 4.9 k/uL (1.3-7.7); Neutrophils % (A) 85 %; RDW 15.8 % (11.5-15.5); WBC 5.8 k/uL (3.8-10.6); WBC (Perox) 6.03
[2016-11-02] MEDS: methylPREDNISolone SOD SUCCI 125 MG/2 ML VIAL IV SCH ×3 (06:50→17:38)
[2016-11-02] MEDS: INSULIN LISPRO (humaLOG) 300 UNIT/3 ML VIAL SQ SCH ×4 (06:50→21:46)
[2016-11-02] MEDS: PANTOPRAZOLE 40 MG TABLET PO SCH (06:51)
[2016-11-02] MEDS: DILTIAZEM 125 MG in SODIUM CHLORIDE 0.9% 100 ML IV SCH (06:51)
[2016-11-02 07:07] LABS: Glucose,Whole Blood 183 mg/dL (75-99)
[2016-11-02 07:37] LABS: ALT 135 U/L (21-72); AST 39 U/L (17-59); Alkaline Phosphatase 90 U/L (38-126); Anion Gap 10 mmol/L; Blood Urea Nitrogen 13 mg/dL (9-20); Carbon Dioxide 23 mmol/L (22-30); Chloride 104 mmol/L (98-107); Glucose 185 mg/dL (74-99); Non-African American GFR(MDRD) >60 (>60 ml/min/1.73 sqM); Potassium 3.9 mmol/L (3.5-5.1); Sodium 137 mmol/L (137-145); Total Bilirubin 1.1 mg/dL (0.2-1.3); Total Protein 5.8 g/dL (6.3-8.2)
--- NOTE | 2016-11-02 07:42 | PN ---
DATE OF SERVICE: 11/01/2016 Reason for followup MRSA tracheobronchitis. INTERVAL HISTORY: The patient is afebrile. He is more awake, alert, breathing comfortably. Complaining of some anxiety and anxious but denies any headaches, no abdominal pain, no diarrhea. On examination, blood pressure is 113/83 with a pulse of 87, temperature is 98. He is 94% on 3 L nasal cannula. General description is middle-age male lying in bed in no distress. RESPIRATORY SYSTEM: Unlabored breath, clear to auscultation anteriorly. HEART: S1, S2. Regular rate and rhythm. ABDOMEN: Soft. No tenderness. EXTREMITIES: No edema of the feet. LABS: Hemoglobin is 10, white count of 5.6 with a BUN of 13, creatinine 0.72. DIAGNOSTIC IMPRESSION AND PLAN: Patient with a methicillin-resistant Staphylococcus aureus tracheobronchitis. Follow up x-ray has been negative for the pneumonia. Blood culture has been negative. The patient's sputum was not collected. Patient received about 5 to 7 days of IV vanco that should be enough for mild tracheobronchitis with no evidence of pneumonia. Will go ahead and discontinue the vancomycin and follow the patient closely off antibiotic therapy. Continue supportive care. MTDD
[2016-11-02] MEDS: BUDESONIDE 1 MG/2 ML NEBU INHALATION SCH ×2 (08:35→19:51)
[2016-11-02] MEDS: TIOTROPIUM 18 MCG/PUFF INHALER INHALATION SCH (08:35)
[2016-11-02] MEDS: LEVALBUTEROL NEB 1.25 MG/3 ML AMP INHALATION SCH ×3 (08:35→19:51)
[2016-11-02] MEDS: ATORVASTATIN 80 MG TAB PO SCH (09:16)
[2016-11-02] MEDS: METHIMAZOLE 5 MG TAB PO SCH ×3 (09:16→21:51)
[2016-11-02] MEDS: ASPIRIN 81 MG CHEW PO SCH (09:16)
[2016-11-02] MEDS: PROPRANOLOL LA 80 MG CAP.SA.24H PO SCH (09:17)
[2016-11-02] MEDS: PARoxetine 20 MG TAB PO SCH (09:17)
[2016-11-02] MEDS: PRIMIDONE 50 MG TAB PO SCH (09:17)
--- NOTE | 2016-11-02 10:45 | P.PN ---
Subjective Principal diagnosis: Acute alcohol withdrawal with delirium tremens 51-year-old male patient who got moved to the intensive care unit yesterday because of altered mental status, agitation, tremors, hallucinations, and symptoms typical of alcohol withdrawal. The patient is a chronic alcoholic and he drinks 4-524 ounce beer on a daily basis. He is also known to me from previous hospital admissions. He is known to have COPD along with various other comorbidities including congestion heart failure, age of fibrillation, hypertension and hyperlipidemia. He also has history of Graves' disease and the patient has been on Tapazole an outpatient basis. The patient came into the hospital originally on 10/26/2016 for acute non-ST segment elevation myocardial infarction and atrial fibrillation with rapid ventricular response. He was seen by cardiology. He was being managed on the medical floor. Infectious disease was also involved in the case as the patient was found to have MRSA in the sputum and pneumonia was suspected and the patient was started on vancomycin. For the time being, the patient is in the intensive care unit and the active issue is the reason tremors he was given a total of 8 mg of Ativan overnight and earlier this morning I was contacted by the nursing staff that the patient was still quite agitated and thrashing. Based on that, the patient was given an additional 2 mg of Ativan IV push and the patient was given 5 mg of IV Haldol. This improved his agitation and he seems to be much more comfortable at this point. No signs of any respiratory suppression or depression. No reported aspiration. He is laying comfortably in bed. Does not respond to verbal stimulation however he response to pain. He is having a snore. No signs of any respiratory distress at this point. Hemodynamically he is still in atrial fibrillation, he is on a Cardizem drip at 10 mg an hour, his IV fluids are running at 20 mL an hour, and he has no signs of any respiratory distress. The latest chest x-ray from today still shows no evidence of an acute pneumonia nor there is any evidence of heart failure. The patient is afebrile. On 10/30/2016 I'm seeing this patient in follow-up. He seems to be a bit more alert compared to yesterday. He was able to take his oral medications. He is less agitated. There is a 24 hour sitter at the bedside. No aspiration. No seizure activity. He remains in atrial fibrillation and is on a Cardizem drip for rate control. Respiratory status is stable. No cough. No sputum production. No chest pain. No other significant events overnight. On 10/31/2016 I'm seeing this patient in follow-up. The patient is calm and comfortable. He is oriented. No respiratory distress. No change in mental status. His resting comfortably in bed. No chest pain. No cough or sputum production. No other significant events overnight. The patient remains on a Cardizem drip for his atrial fibrillation which is running at 10 mg an hour.On 11/01/2016, the patient is wide awake alert and there are no signs of delirium tremens. Nevertheless, he is having some increased shortness of breath typical of an acute COPD exacerbation. He was started on systemic steroids. I give him IV Solu Medrol 60 mg IV push every 6 hours. He is also on a Cardizem drip regarding his atrial fibrillation and his current rate is down to 5 mg an hour. No chest pain. He is tolerating his diet. Patient was evaluated by me on 11/02/2016, he seems to be doing well, remains in atrial fibrillation, on Cardizem drip, he was told that he would likely be switched from IV Cardizem to oral Cardizem today. Less shortness of breath, no cough, no wheezing, no fever, no chills, no hemoptysis. Labs were reviewed he had relatively normal CBC however his hemoglobin is 9.4 normal basic metabolic profile, last chest x-ray on 10/29/2016 showed mostly mild congestive heart failure changes and interstitial edema. However on physical examination today, his lungs are relatively clear. Objective - Vital Signs Vital signs: Vital Signs Temp 97.4 F L 11/02/16 08:37 Pulse 108 H 11/02/16 08:48 Resp 18 11/02/16 08:37 BP 145/66 11/02/16 08:37 Pulse Ox 96 11/02/16 08:39 Intake & Output 11/01/16 11/02/16 11/02/16 18:59 06:59 18:59 Intake Total 1370 123.833 Output Total 400 700 250 Balance 970 -576.167 -250 Weight 75.3 kg Intake: IV 410 0.9 @ 20 160 Vancomycin 1,250 mg In 250 Sodium Chloride 0.9% 250 ml @ 125 mls/hr IVPB Q12HR [facility] Rx#:[id number] Intake, IV Titration 123.833 Amount Diltiazem 125 mg In 123.833 Sodium Chloride 0.9% 100 ml @ 5 MG/HR 5 mls/hr IV .Q24H [facility] Rx#:[id number] Oral 960 Output: Urine 400 700 250 Other: Voiding Method Urinal # Voids 1 1 - Exam Physical Exam: Revealed a 51-year-old white male in no distress HEENT:[Neck is supple.] [No neck masses.] [No thyromegaly.] [No JVD.] Chest: Diminished breath sounds at the bases, no crackles or rhonchi or wheezes] Cardiac Exam: [Irregular irregular rhythm, Normal S1 and S2, no S3 gallop, no murmur.] Abdomen: [Soft, nontender, no megaly, no rebound, no guarding, normal bowel sounds.] Extremities: [No clubbing, no edema, no cyanosis.] Neurological Exam: [No focal neurologic deficit.] - Labs CBC & Chem 7: 11/02/16 05:43 11/02/16 05:43 Labs: Abnormal Lab Results - Last 24 Hours (Table) 11/01/16 11/01/16 11/01/16 Range/Units 12:09 17:01 21:00 RBC (4.30-5.90) m/uL Hgb (13.0-17.5) gm/dL Hct (39.0-53.0) % RDW (11.5-15.5) % Lymphocytes # (1.0-4.8) k/uL Glucose (74-99) mg/dL POC Glucose (mg/dL) 193 H 185 H 241 H (75-99) mg/dL ALT (21-72) U/L Total Protein (6.3-8.2) g/dL Albumin (3.5-5.0) g/dL 11/02/16 11/02/16 11/02/16 Range/Units 05:43 05:43 06:49 RBC 3.30 L (4.30-5.90) m/uL Hgb 9.4 L (13.0-17.5) gm/dL Hct 30.2 L (39.0-53.0) % RDW 15.8 H (11.5-15.5) % Lymphocytes # 0.7 L (1.0-4.8) k/uL Glucose 185 H (74-99) mg/dL POC Glucose (mg/dL) 183 H (75-99) mg/dL ALT 135 H (21-72) U/L Total Protein 5.8 L (6.3-8.2) g/dL Albumin 2.9 L (3.5-5.0) g/dL Microbiology - Last 24 Hours (Table) 10/27/16 15:04 Blood Culture - Preliminary Blood No Growth after 120 hours 10/27/16 15:04 Blood Culture - Preliminary Blood No Growth after 120 hours Assessment and Plan Plan: 1 acute alcohol withdrawal was/delirium tremens, , recovered 2 COPD exacerbation with secondary shortness of breath 3 MRSA in the sputum, likely colonization repeat chest x-ray showed no evidence of pneumonia, ID is on the case 4 coronary artery disease with a recent non-ST segment elevation myocardial infarction 5 CHF with ejection fraction of 40% 6 chronic atrial fibrillation with rapid ventricular response at time of admission currently on a Cardizem drip at 10 L an hour with adequate rate control 7 previous history of pulmonary embolism maintained on long-term and to coagulation with Xarelto 8 squamous cell carcinoma of the skin, removed 9 Graves' disease currently on tapazol Recommendation: Continue present treatment plan including present course of bronchodilators, steroids, Pulmicort updrafts, continue Cardizem, treat atrial fibrillation as per cardiology, consider discharge planning once his cardiac rhythm is better controlled with oral medications, off IV Cardizem. We'll continue to follow. Time with Patient: Less than 30
[2016-11-02] MEDS ORDERED: DIGOXIN 250 MCG/ML 2 ML AMP IVP ONE (11:42)
--- NOTE | 2016-11-02 11:43 | P.PN ---
Progress Note - Text Patient remains in A. fib with RVR He is on Inderal 240 mg daily long-acting I will add digoxin 1 dose IV but I will also start by mouth 250 g by mouth daily Reduce atorvastatin 10 mg a day Avoid alcohol Management of hypothyroidism and pulmonary status May go to the medical floor
[2016-11-02 12:07] LABS: Glucose,Whole Blood 214 mg/dL (75-99)
[2016-11-02] MEDS: DIGOXIN 250 MCG TAB PO SCH (12:20)
[2016-11-02] MEDS: THIAMINE 100 MG TAB PO SCH ×2 (12:21→15:15)
--- NOTE | 2016-11-02 14:56 | PN ---
DATE OF SERVICE: 11/02/2016 This is a 51-year-old gentleman admitted with multiple medical problems including atrial fibrillation, also had features of hyperthyroid. Patient was started on methimazole 20 mg p.o. t.i.d. The patient also had delirium tremens, history of atrial fibrillation with fast ventricular rate and patient admitted also in ICU, monitored. The patient is on multiple medications including Cardizem, digoxin and Cardiology following the patient closely and as well as Pulmonary. Patient is closely monitored at this time. PAST MEDICAL HISTORY: Reviewed. REVIEW OF SYSTEMS: CARDIOVASCULAR: As mentioned earlier. RESPIRATORY: As mentioned earlier. GI: No nausea. : No dysuria. NERVOUS SYSTEM: As mentioned earlier. Current medications are reviewed and include [place] 5 mg q.6 p.r.n., aspirin 81 mg, Lipitor 10 mg, Pulmicort 1 mg b.i.d., Lanoxin 250 mcg p.o. daily, Haldol 2 mg q.3 p.r.n., Xopenex 1.5, Ativan, Tapazole, Solu-Medrol, magnesium oxide, Nitrostat 0.4 sublingual p.r.n., Protonix, Mysoline, Xarelto, vitamin B1, Spiriva. PHYSICAL EXAM: Patient is alert and oriented x3. Pulse is 120 regular, blood 145/60, respirations 18, temperature 97.4, pulse ox 96% on 3 L. HEENT: Conjunctivae normal, oral mucosa moist. NECK: No jugular venous distension, no carotid bruit, no lymph node enlargement. CARDIOVASCULAR SYSTEM: S1, S2, tachycardic. RESPIRATORY: Breath sounds diminished at the bases. No rhonchi, no crackles. ABDOMEN: Soft. Nontender, no mass palpable. LEGS: No edema, no swelling. NERVOUS SYSTEM: Higher function as mentioned, moves on 4 limbs, no motor deficits. LYMPHATICS: No lymph node enlargement. SKIN: No ulcer, rash, bleed. LABS: At this time shows WBC is 5.8, hemoglobin is 9.4, glucose noted and TSH is less than 0.015, albumin is 2.9. ASSESSMENT: 1. Atrial fibrillation with fast ventricular rate, present on admission. 2. Acute hyperthyroid. 3. Possible congestive heart failure acute exacerbation with acute on chronic systolic dysfunction, ejection fraction 40%. 4. Acute [id number]-wqqevblaf myocardial infarction. 5. Delirium tremens and change in mental status with metabolic encephalopathy, present on admission. 6. Acute alcoholic hepatitis. 7. Chronic obstructive pulmonary disease, acute exacerbation. 8. History of Graves' disease. 9. History of methicillin-resistant Staphylococcus aureus in the sputum. 10. Previous history of pulmonary embolism, on Xarelto. 11. Squamous cell carcinoma of the skin, that was removed. 12. History of nicotine dependence. 13. History of Ethyl alcohol. 14. Chronic paroxysmal atrial fibrillation. 15. FULL CODE. RECOMMENDATION: In this 51-year-old gentleman who presented with multiple complex medical issues, will monitor the patient closely, continue with the current medications, continue with symptomatic treatment. Otherwise, at this time I would recommend continue with the antiarrhythmic by Cardiology. Continue with the methimazole. Endocrine evaluation. Guarded prognosis because of multiple complex medical issues. Further recommendation to follow. Continue with the rest of the medications. Also recommend FT3 and FT4.
[2016-11-02 16:39] LABS: Glucose,Whole Blood 196 mg/dL (75-99)
[2016-11-02 21:14] LABS: Glucose,Whole Blood 247 mg/dL (75-99)
[2016-11-02] MEDS: RIVAROXABAN 10 MG TAB PO SCH (21:51)
[2016-11-03] MEDS: methylPREDNISolone SOD SUCCI 125 MG/2 ML VIAL IV SCH ×5 (00:34→23:05)
[2016-11-03 07:42] LABS: Glucose,Whole Blood 216 mg/dL (75-99)
[2016-11-03] MEDS: INSULIN LISPRO (humaLOG) 300 UNIT/3 ML VIAL SQ SCH ×3 (07:48→18:12)
--- NOTE | 2016-11-03 07:48 | PN ---
DATE OF SERVICE: 11/02/2016 Reason for follow-up: MRSA tracheobronchitis. INTERVAL HISTORY: The patient is afebrile. Has been breathing more comfortably. The patient denies any significant chest pain, occasional cough and no abdominal pain. No diarrhea. On examination, blood pressure is 121/79, pulse 117, temperature 97.6. He is 95% on 2 liters nasal cannula. General description is a middle-age male lying in bed in no distress. RESPIRATORY SYSTEM: Unlabored breathing. Clear to auscultation anteriorly. HEART: S1, S2. Regular rate and rhythm. ABDOMEN: Soft, no tenderness. LABS: Hemoglobin 9.4, white count 5.8 with a BUN of 13, creatinine 0.60. DIAGNOSTIC IMPRESSION AND PLAN: The patient admitted to the hospital with difficulty breathing, multifactorial , underlying MRSA tracheobronchitis adequatly treated. The patient off vancomycin. Will continue to monitor him closely off antibiotics. Continue supportive care. MTDD
[2016-11-03] MEDS: ASPIRIN 81 MG CHEW PO SCH (07:49)
[2016-11-03] MEDS: PANTOPRAZOLE 40 MG TABLET PO SCH (07:49)
[2016-11-03] MEDS: ATORVASTATIN 10 MG TAB PO SCH (07:49)
[2016-11-03] MEDS: METHIMAZOLE 5 MG TAB PO SCH ×3 (07:50→21:33)
[2016-11-03] MEDS: DIGOXIN 250 MCG TAB PO SCH (07:50)
[2016-11-03] MEDS: PARoxetine 20 MG TAB PO SCH (07:50)
[2016-11-03] MEDS: PRIMIDONE 50 MG TAB PO SCH (07:51)
[2016-11-03] MEDS: PROPRANOLOL LA 80 MG CAP.SA.24H PO SCH (07:51)
[2016-11-03] MEDS: BUDESONIDE 1 MG/2 ML NEBU INHALATION SCH ×2 (08:34→19:44)
[2016-11-03] MEDS: TIOTROPIUM 18 MCG/PUFF INHALER INHALATION SCH (08:34)
[2016-11-03] MEDS: LEVALBUTEROL NEB 1.25 MG/3 ML AMP INHALATION SCH ×3 (08:34→19:44)
[2016-11-03] MEDS: LORazepam 0.5 MG TAB PO PRN ×2 (09:55→21:33)
[2016-11-03] MEDS: THIAMINE 100 MG TAB PO SCH ×2 (10:53→15:04)
[2016-11-03 11:48] LABS: Glucose,Whole Blood 206 mg/dL (75-99)
[2016-11-03 13:48] VITALS: BMI 28.5
[2016-11-03] MEDS ORDERED: PROPRANOLOL LA 60 MG CAP.SA.24H PO STA (14:38)
[2016-11-03] MEDS: HYDROcodone/APAP 5-325MG 1 EACH TAB PO PRN (15:08)
--- NOTE | 2016-11-03 15:50 | P.PN ---
Subjective 51-year-old male patient who got moved to the intensive care unit yesterday because of altered mental status, agitation, tremors, hallucinations, and symptoms typical of alcohol withdrawal. The patient is a chronic alcoholic and he drinks 4-524 ounce beer on a daily basis. He is also known to me from previous hospital admissions. He is known to have COPD along with various other comorbidities including congestion heart failure, age of fibrillation, hypertension and hyperlipidemia. He also has history of Graves' disease and the patient has been on Tapazole an outpatient basis. The patient came into the hospital originally on 10/26/2016 for acute non-ST segment elevation myocardial infarction and atrial fibrillation with rapid ventricular response. He was seen by cardiology. He was being managed on the medical floor. Infectious disease was also involved in the case as the patient was found to have MRSA in the sputum and pneumonia was suspected and the patient was started on vancomycin. For the time being, the patient is in the intensive care unit and the active issue is the reason tremors he was given a total of 8 mg of Ativan overnight and earlier this morning I was contacted by the nursing staff that the patient was still quite agitated and thrashing. Based on that, the patient was given an additional 2 mg of Ativan IV push and the patient was given 5 mg of IV Haldol. This improved his agitation and he seems to be much more comfortable at this point. No signs of any respiratory suppression or depression. No reported aspiration. He is laying comfortably in bed. Does not respond to verbal stimulation however he response to pain. He is having a snore. No signs of any respiratory distress at this point. Hemodynamically he is still in atrial fibrillation, he is on a Cardizem drip at 10 mg an hour, his IV fluids are running at 20 mL an hour, and he has no signs of any respiratory distress. The latest chest x-ray from today still shows no evidence of an acute pneumonia nor there is any evidence of heart failure. The patient is afebrile. On 10/30/2016 I'm seeing this patient in follow-up. He seems to be a bit more alert compared to yesterday. He was able to take his oral medications. He is less agitated. There is a 24 hour sitter at the bedside. No aspiration. No seizure activity. He remains in atrial fibrillation and is on a Cardizem drip for rate control. Respiratory status is stable. No cough. No sputum production. No chest pain. No other significant events overnight. On 10/31/2016 I'm seeing this patient in follow-up. The patient is calm and comfortable. He is oriented. No respiratory distress. No change in mental status. His resting comfortably in bed. No chest pain. No cough or sputum production. No other significant events overnight. The patient remains on a Cardizem drip for his atrial fibrillation which is running at 10 mg an hour.On 11/01/2016, the patient is wide awake alert and there are no signs of delirium tremens. Nevertheless, he is having some increased shortness of breath typical of an acute COPD exacerbation. He was started on systemic steroids. I give him IV Solu Medrol 60 mg IV push every 6 hours. He is also on a Cardizem drip regarding his atrial fibrillation and his current rate is down to 5 mg an hour. No chest pain. He is tolerating his diet. Patient was evaluated by me on 11/02/2016, he seems to be doing well, remains in atrial fibrillation, on Cardizem drip, he was told that he would likely be switched from IV Cardizem to oral Cardizem today. Less shortness of breath, no cough, no wheezing, no fever, no chills, no hemoptysis. Labs were reviewed he had relatively normal CBC however his hemoglobin is 9.4 normal basic metabolic profile, last chest x-ray on 10/29/2016 showed mostly mild congestive heart failure changes and interstitial edema. However on physical examination today, his lungs are relatively clear. Patient is seen again today 11/03/2016 on the surgical floor. He remains awake and alert in no acute distress. He is less short of breath today. He is maintaining O2 saturations in the 90s on room air. He is afebrile. Less tachycardic. He remains on Inderal and digoxin. He is anticoagulated with Xarelto. Objective - Vital Signs Vital signs: Vital Signs Temp 98.7 F 11/03/16 13:30 Pulse 100 11/03/16 13:52 Resp 16 11/03/16 13:30 BP 147/86 11/03/16 13:30 Pulse Ox 99 11/03/16 13:30 Intake & Output 11/02/16 11/03/16 11/03/16 18:59 06:59 18:59 Intake Total 680 Output Total 250 Balance -250 680 Weight 75.3 kg Intake: IV 500 0.9 @ 20 500 Oral 180 Output: Urine 250 Other: Voiding Method Urinal Urinal - Exam GENERAL EXAM: Alert, active, comfortable in no apparent distress. HEAD: Normocephalic. EYES: Normal reaction of pupils, equal size. NOSE: Clear with pink turbinates. THROAT: No erythema or exudates. NECK: No masses, no JVD. CHEST: No chest wall deformity. LUNGS: Equal air entry with intent expiratory wheeze. Diminished. CVS: S1 and S2 normal with no audible murmurs, irregular rhythm. ABDOMEN: No hepatosplenomegaly, normal bowel sounds, no guarding or rigidity. SPINE: No scoliosis or deformity SKIN: No rashes CENTRAL NERVOUS SYSTEM: No focal deficits, tone is normal in all 4 extremities. - Labs CBC & Chem 7: 11/02/16 05:43 11/02/16 05:43 Labs: Abnormal Lab Results - Last 24 Hours (Table) 11/02/16 11/02/16 11/03/16 Range/Units 16:36 21:13 07:12 POC Glucose (mg/dL) 196 H 247 H 216 H (75-99) mg/dL 11/03/16 Range/Units 11:45 POC Glucose (mg/dL) 206 H (75-99) mg/dL Microbiology - Last 24 Hours (Table) 10/27/16 15:04 Blood Culture - Final Blood No Growth after 144 hours 10/27/16 15:04 Blood Culture - Final Blood No Growth after 144 hours Assessment and Plan Plan: Impression: 1 acute alcohol withdrawal was/delirium tremens, , recovered 2 COPD exacerbation with secondary shortness of breath 3 MRSA in the sputum, likely colonization repeat chest x-ray showed no evidence of pneumonia, ID is on the case 4 coronary artery disease with a recent non-ST segment elevation myocardial infarction 5 CHF with ejection fraction of 40% 6 chronic atrial fibrillation with rapid ventricular response at time of admission, improved 7 previous history of pulmonary embolism maintained on long-term and to coagulation with Xarelto 8 squamous cell carcinoma of the skin, removed 9 Graves' disease currently on tapazol Plan: The patient was seen and evaluated by Dr. Vivas. He is stable from the pulmonary and critical care standpoint. We will taper his IV Solu-Medrol and plan to convert over to oral prednisone. We will await further input from cardiology regarding rate control. He remains on Xarelto for anticoagulation. We will continue to follow.
--- NOTE | 2016-11-03 16:01 | PN ---
DATE OF SERVICE: 11/03/2016 REASON FOR FOLLOWUP: MRSA tracheobronchitis. INTERVAL HISTORY: The patient is afebrile. He is feeling better, breathing comfortably. Denies having any chest pain. No cough. No abdominal pain. No nausea, vomiting or any diarrhea. On examination, blood pressure 150/94 with a pulse of 80, temperature 97.8. He is 94% on room air. General description is a middle-aged male up in the bed in no distress. RESPIRATORY SYSTEM: Unlabored breathing. Clear to auscultation anteriorly. HEART: S1, S2. Regular rate and rhythm. ABDOMEN: Soft. No tenderness. LABS: Hemoglobin 9.4, white count 5.8. BUN of 13, creatinine 0.67. DIAGNOSTIC IMPRESSION AND PLAN: Patient with methicillin-resistant Staphylococcus aureus tracheobronchitis with no evidence of any pneumonia. Currently off antibiotic, with no worsening of his underlying lung condition. No need for further antibiotic therapy. ID will sign. Please call with any questions about his infectious disease care.
[2016-11-03 17:37] LABS: Glucose,Whole Blood 309 mg/dL (75-99)
[2016-11-03] MEDS ORDERED: INSULIN REGULAR BOLUS (FROM DRIP BAG) IV ONE ×2 (17:46→18:02)
--- NOTE | 2016-11-03 17:57 | PN ---
DATE OF SERVICE: 11/03/2016 This 51-year-old gentleman, admitted with atrial fibrillation with fast ventricular rate, also had features of acute hyperthyroidism as well as CHF and alcohol withdrawal with delirium tremens. The patient is still having atrial fibrillation with a fast ventricular rate. Patient was started on a combination of propranolol as well as digoxin by Cardiology at this time. Methimazole has been initiated also. is still elevated. T3 is normal. T4 is also showing diminishing trends at this time. Please note that the patient missed a couple of appointments with medical assistant secretary previously, akin Wilburn. Past medical history reviewed. REVIEW OF SYSTEMS: CARDIOVASCULAR SYSTEM: As mentioned earlier. RESPIRATORY SYSTEM: As mentioned earlier. GI: As mentioned earlier. : No dysuria. NERVOUS SYSTEM: No numbness, weakness. Current medications are reviewed and include: 1. [place] 5 mg q.6 p.r.n. 2. Aspirin 81 mg. 3. Lipitor 10 mg. 4. Pulmicort 1 mg b.i.d. 5. Lanoxin. 6. Haldol. 7. Humalog. 8. Xopenex. 9. Ativan. 10. Tapazole 20 mg p.o. t.i.d. 11. Solu-Medrol 60 IV q.6. 12. Nitrostat. 13. Paxil. 14. Mysoline. 15. Inderal. 16. Xarelto. 17. Vitamin B1. 18. Spiriva. PHYSICAL EXAMINATION: Patient is alert and oriented x3. Pulse is 100, blood pressure 147/86, respiration 16, temperature 98.7, pulse ox 99% on room air. HEENT: Conjunctivae normal. NECK: No jugular venous distention. CARDIOVASCULAR SYSTEM: S1, S2. Tachycardic. RESPIRATORY: Breath sounds diminished at the bases. No rhonchi. No crackles. ABDOMEN: Soft, non-tender. No mass palpable. LEGS: No edema. No swelling. NERVOUS SYSTEM: Higher functions as mentioned earlier. Moves all 4 limbs. No focal motor or sensory deficit. LYMPHATICS: No lymph node palpable in neck, axillae or groin. SKIN: No ulcer, rash, bleeding. LABS: Accu-Cheks 216 and 206. Hemoglobin is 9.4. ASSESSMENT: 1. Atrial fibrillation with a fast ventricular rate, present on admission, possibly secondary to hyperthyroidism. 2. Acute hyperthyroidism. 3. Possible congestive heart failure, acute exacerbation, with acute on chronic systolic dysfunction, ejection fraction 40%. 4. Acute nyp-AF-baiospy-elevation myocardial infarction, present on admission. 5. Acute delirium tremens and change in mental status with metabolic encephalopathy secondary to alcohol withdrawal, present on admission. 6. Acute alcoholic hepatitis. 7. Chronic obstructive pulmonary disease, acute exacerbation. 8. History of Graves' disease. 9. History of methicillin-resistant Staphylococcus aureus in the sputum. 10. History of pulmonary embolism, on Xarelto. 11. Squamous cell carcinoma of the skin that was removed. 12. History of nicotine dependence. 13. History of ethanol. 14. Chronic paroxysmal atrial fibrillation. 15. FULL CODE. RECOMMENDATIONS AND DISCUSSION: I recommend to continue with the current medications, continue with symptomatic treatment. Discussed with Cardiology. Increase the Inderal dose to 320 mg. Otherwise, continue the rest of the medications. I also recommend close followup with Endocrine as outpatient. See orders for further details. Further recommendations to follow. MTDD
[2016-11-03] MEDS ORDERED: INSULIN REGULAR 100 UNIT in SODIUM CHLORIDE 0.9% 100 ML IV SCH (18:15)
[2016-11-03 18:44] LABS: Glucose,Whole Blood 315 mg/dL (75-99)
[2016-11-03 19:53] LABS: Glucose,Whole Blood 174 mg/dL (75-99)
[2016-11-03 20:25] LABS: Glucose,Whole Blood 108 mg/dL (75-99)
[2016-11-03] MEDS: RIVAROXABAN 10 MG TAB PO SCH (21:33)
[2016-11-03 21:46] LABS: Glucose,Whole Blood 169 mg/dL (75-99)
[2016-11-03 23:27] LABS: Glucose,Whole Blood 198 mg/dL (75-99)
[2016-11-04 01:40] LABS: Glucose,Whole Blood 274 mg/dL (75-99)
[2016-11-04 03:30] LABS: Glucose,Whole Blood 197 mg/dL (75-99)
[2016-11-04 05:42] LABS: Glucose,Whole Blood 150 mg/dL (75-99)
[2016-11-04] MEDS: methylPREDNISolone SOD SUCCI 125 MG/2 ML VIAL IV SCH ×2 (05:48→11:53)
[2016-11-04] MEDS ORDERED: INSULIN LISPRO (humaLOG) 300 UNIT/3 ML VIAL SQ SCH (07:30)
[2016-11-04] MEDS: ASPIRIN 81 MG CHEW PO SCH (07:37)
[2016-11-04] MEDS: METHIMAZOLE 5 MG TAB PO SCH (07:37)
[2016-11-04] MEDS: ATORVASTATIN 10 MG TAB PO SCH (07:38)
[2016-11-04] MEDS: PRIMIDONE 50 MG TAB PO SCH (07:38)
[2016-11-04] MEDS: PANTOPRAZOLE 40 MG TABLET PO SCH (07:38)
[2016-11-04] MEDS: PARoxetine 20 MG TAB PO SCH (07:38)
[2016-11-04] MEDS: DIGOXIN 250 MCG TAB PO SCH (07:39)
[2016-11-04 07:42] VITALS: BP 147/112; RESP 16; TEMP 97.2
[2016-11-04] MEDS: INSULIN LISPRO (humaLOG) 300 UNIT/3 ML VIAL SQ SCH ×2 (07:45→11:52)
[2016-11-04 07:57] LABS: Glucose,Whole Blood 130 mg/dL (75-99)
[2016-11-04 08:51] LABS: Glucose,Whole Blood 149 mg/dL (75-99)
[2016-11-04] MEDS ORDERED: PROPRANOLOL LA 80 MG CAP.SA.24H PO SCH (09:00)
[2016-11-04] MEDS: LEVALBUTEROL NEB 1.25 MG/3 ML AMP INHALATION SCH ×2 (09:03→13:00)
[2016-11-04] MEDS: TIOTROPIUM 18 MCG/PUFF INHALER INHALATION SCH (09:03)
[2016-11-04] MEDS: BUDESONIDE 1 MG/2 ML NEBU INHALATION SCH (09:03)
[2016-11-04 10:18] LABS: Glucose,Whole Blood 123 mg/dL (75-99)
[2016-11-04 11:39] LABS: Glucose,Whole Blood 200 mg/dL (75-99)
[2016-11-04] MEDS: THIAMINE 100 MG TAB PO SCH (11:51)
--- NOTE | 2016-11-04 12:18 | P.PN ---
Subjective 51-year-old male patient who got moved to the intensive care unit yesterday because of altered mental status, agitation, tremors, hallucinations, and symptoms typical of alcohol withdrawal. The patient is a chronic alcoholic and he drinks 4-524 ounce beer on a daily basis. He is also known to me from previous hospital admissions. He is known to have COPD along with various other comorbidities including congestion heart failure, age of fibrillation, hypertension and hyperlipidemia. He also has history of Graves' disease and the patient has been on Tapazole an outpatient basis. The patient came into the hospital originally on 10/26/2016 for acute non-ST segment elevation myocardial infarction and atrial fibrillation with rapid ventricular response. He was seen by cardiology. He was being managed on the medical floor. Infectious disease was also involved in the case as the patient was found to have MRSA in the sputum and pneumonia was suspected and the patient was started on vancomycin. For the time being, the patient is in the intensive care unit and the active issue is the reason tremors he was given a total of 8 mg of Ativan overnight and earlier this morning I was contacted by the nursing staff that the patient was still quite agitated and thrashing. Based on that, the patient was given an additional 2 mg of Ativan IV push and the patient was given 5 mg of IV Haldol. This improved his agitation and he seems to be much more comfortable at this point. No signs of any respiratory suppression or depression. No reported aspiration. He is laying comfortably in bed. Does not respond to verbal stimulation however he response to pain. He is having a snore. No signs of any respiratory distress at this point. Hemodynamically he is still in atrial fibrillation, he is on a Cardizem drip at 10 mg an hour, his IV fluids are running at 20 mL an hour, and he has no signs of any respiratory distress. The latest chest x-ray from today still shows no evidence of an acute pneumonia nor there is any evidence of heart failure. The patient is afebrile. On 10/30/2016 I'm seeing this patient in follow-up. He seems to be a bit more alert compared to yesterday. He was able to take his oral medications. He is less agitated. There is a 24 hour sitter at the bedside. No aspiration. No seizure activity. He remains in atrial fibrillation and is on a Cardizem drip for rate control. Respiratory status is stable. No cough. No sputum production. No chest pain. No other significant events overnight. On 10/31/2016 I'm seeing this patient in follow-up. The patient is calm and comfortable. He is oriented. No respiratory distress. No change in mental status. His resting comfortably in bed. No chest pain. No cough or sputum production. No other significant events overnight. The patient remains on a Cardizem drip for his atrial fibrillation which is running at 10 mg an hour.On 11/01/2016, the patient is wide awake alert and there are no signs of delirium tremens. Nevertheless, he is having some increased shortness of breath typical of an acute COPD exacerbation. He was started on systemic steroids. I give him IV Solu Medrol 60 mg IV push every 6 hours. He is also on a Cardizem drip regarding his atrial fibrillation and his current rate is down to 5 mg an hour. No chest pain. He is tolerating his diet. Patient was evaluated by me on 11/02/2016, he seems to be doing well, remains in atrial fibrillation, on Cardizem drip, he was told that he would likely be switched from IV Cardizem to oral Cardizem today. Less shortness of breath, no cough, no wheezing, no fever, no chills, no hemoptysis. Labs were reviewed he had relatively normal CBC however his hemoglobin is 9.4 normal basic metabolic profile, last chest x-ray on 10/29/2016 showed mostly mild congestive heart failure changes and interstitial edema. However on physical examination today, his lungs are relatively clear. Patient is seen again today 11/03/2016 on the surgical floor. He remains awake and alert in no acute distress. He is less short of breath today. He is maintaining O2 saturations in the 90s on room air. He is afebrile. Less tachycardic. He remains on Inderal and digoxin. He is anticoagulated with Xarelto. The patient was seen again today 11/04/2016 on the surgical floor. He's been up ambulating without distress. He is anxious to go home. He denies any worsening shortness of breath cough or congestion. He continues to oxygenate well on room air. No significant wheezing. Objective - Vital Signs Vital signs: Vital Signs Temp 97.2 F L 11/04/16 07:41 Pulse 61 11/04/16 09:55 Resp 16 11/04/16 07:41 BP 147/112 11/04/16 07:41 Pulse Ox 94 L 11/04/16 07:41 Intake & Output 11/03/16 11/04/16 11/04/16 18:59 06:59 18:59 Intake Total 680 279.467 2.033 Balance 680 279.467 2.033 Weight 75.3 kg Intake: IV 500 240 0.9 @ 20 500 240 Intake, IV Titration 39.467 2.033 Amount Insulin Regular 100 unit 39.467 2.033 In Sodium Chloride 0.9% 100 ml @ Titrate IV .Q0M RENZO Rx#:[id number] Oral 180 Other: Voiding Method Urinal # Voids 1 - Exam GENERAL EXAM: Alert, active, comfortable in no apparent distress. HEAD: Normocephalic. EYES: Normal reaction of pupils, equal size. NOSE: Clear with pink turbinates. THROAT: No erythema or exudates. NECK: No masses, no JVD. CHEST: No chest wall deformity. LUNGS: Equal air entry with intent expiratory wheeze. Diminished. CVS: S1 and S2 normal with no audible murmurs, irregular rhythm. ABDOMEN: No hepatosplenomegaly, normal bowel sounds, no guarding or rigidity. SPINE: No scoliosis or deformity SKIN: No rashes CENTRAL NERVOUS SYSTEM: No focal deficits, tone is normal in all 4 extremities. - Labs CBC & Chem 7: 11/02/16 05:43 11/02/16 05:43 Labs: Abnormal Lab Results - Last 24 Hours (Table) 11/03/16 11/03/16 11/03/16 Range/Units 17:35 18:24 19:35 POC Glucose (mg/dL) 309 H 315 H 174 H (75-99) mg/dL 11/03/16 11/03/16 11/03/16 Range/Units 20:23 21:26 23:24 POC Glucose (mg/dL) 108 H 169 H 198 H (75-99) mg/dL 11/04/16 11/04/16 11/04/16 Range/Units 01:38 03:28 05:40 POC Glucose (mg/dL) 274 H 197 H 150 H (75-99) mg/dL 11/04/16 11/04/16 11/04/16 Range/Units 07:44 08:48 09:48 POC Glucose (mg/dL) 130 H 149 H 123 H (75-99) mg/dL 11/04/16 Range/Units 11:31 POC Glucose (mg/dL) 200 H (75-99) mg/dL Microbiology - Last 24 Hours (Table) 11/03/16 19:46 Gram Stain - Final Sputum Assessment and Plan Plan: Impression: 1 acute alcohol withdrawal was/delirium tremens, , recovered 2 COPD exacerbation with secondary shortness of breath 3 MRSA in the sputum, likely colonization repeat chest x-ray showed no evidence of pneumonia, ID is on the case 4 coronary artery disease with a recent non-ST segment elevation myocardial infarction 5 CHF with ejection fraction of 40% 6 chronic atrial fibrillation with rapid ventricular response at time of admission, improved 7 previous history of pulmonary embolism maintained on long-term and to coagulation with Xarelto 8 squamous cell carcinoma of the skin, removed 9 Graves' disease currently on tapazol Plan: The patient was seen and evaluated by Dr. Vivas. He is cleared for discharge from the pulmonary standpoint. We'll convert him to a prednisone taper. Continue with his current medications. He'll follow-up in our office in 1-2 weeks' time. He is however encouraged to call sooner with any pulmonary complaints or other questions or concerns.
[2016-11-04 13:27] VITALS: PULSE 75
--- NOTE | 2016-11-05 07:57 | DS ---
DATE OF ADMISSION: 10/26/2016 DATE OF DISCHARGE: 11/04/2016 FINAL DIAGNOSES: 1. Atrial fibrillation with fast ventricular rate, present on admission, possibly secondary to hyperthyroidism. 2. Acute hyperthyroid. 3. Change in mental status, metabolic encephalopathy multifactorial. 4. Congestive heart failure, acute exacerbation, acute on chronic systolic dysfunction, ejection fraction 40%. 5. Acute non-ST segment elevation myocardial infarction, present on admission. 6. Acute delirium tremens and change in mental status, metabolic encephalopathy, acute with alcohol withdrawal present on admission. 7. Acute alcoholic hepatitis present on admission. 8. Chronic obstructive pulmonary disease, acute exacerbation, present on admission. 9. History of Graves' disease. 10. History of methicillin-resistant Staphylococcus aureus in the sputum. 11. History of pulmonary embolism on Xarelto. 12. Squamous cell carcinoma of the skin that was removed. 13. History of nicotine dependence. 14. History of ETOH. 15. Chronic paroxysmal atrial fibrillation. 16. FULL CODE. DISCHARGE DISPOSITION: The patient will be discharged in stable condition with guarded prognosis. Discharge cleared by multiple consultants. Total time taken is 35 minutes. HISTORY OF PRESENT ILLNESS: This is a 51-year-old gentleman with a past medical history of multiple medical problems was admitted with atrial fibrillation, fast ventricular rate and multiple other cardiac medications, the patient also had significant ETOH and the patient had delirium tremens. The patient monitored in the ICU. The patient also has COPD and multiple other medical problems and change in mental status also. Otherwise, the patient seen by multiple consultants during the hospitalization. Seen by infectious disease, Cardiology and pulmonology care was coordinated. On exam vital signs stable. CARDIOVASCULAR: S1, S2 muffled. RESPIRATORY: Severe rhonchi. ABDOMEN: Soft. Central nervous system: No focal deficits. LABS: Accu-Cheks 123, 200. So the patient will be discharged in a stable condition with guarded prognosis with the follow advice and medications: 1. Diet is cardiac. 2. Activity limited until follow-up. 3. Follow-up follow up with Dr. Acosta in 1 to 2 days. 4. Follow up with cardiology as recommended. 5. Medications are albuterol 2 puffs t.i.d. p.r.n. 6. Albuterol/Ventolin q.i.d. updrafts. 7. Lipitor 10 mg p.o. daily. 8. Pulmicort 1 puff b.i.d. 9. Lanoxin 250 mcg p.o. daily. 10. Hydrocodone 5 mg p.o. q.6 p.r.n. 11. Ativan 0.5 mg q.8 p.r.n. 12. Tapazole 20 mg p.o. t.i.d. Dose to be adjusted in the outpatient setting. 13. Protonix 40 mg p.o. daily. 14. Paxil 40 mg p.o. daily. 15. Primidone 50 mg p.o. daily. 16. Inderal LA 320 mg p.o. daily. 17. Xarelto 20 mg p.o. q.h.s. 18. Thiamin 100 mg p.o. daily. 19. Spiriva 1 puff daily. The patient was recommended to follow up with Dr. David in the outpatient setting as well as [facility]. The overall prognosis guarded. Also recommend strongly against alcohol and continue to alcohol cessation and possible rehab also. The patient understands and agrees. Further recommendations to follow.
[2016-11-05] MEDS ORDERED: predniSONE 20 MG TAB PO SCH (09:00)
--- NOTE | 2016-11-13 07:06 | P.PN ---
Subjective Date of service 10/29/2016. Progress note being dictated for Dr. Grider. Interval history: This a 51-year-old gentleman admitted with atrial fibrillation with RVR, hyperthyroidism, sputum positive for MRSA, COPD exacerbation with tracheobronchitis and multiple other medical issues. Continues on vancomycin as per ID. Severe DTs with agitation, requiring significant amounts of Ativan( 8mg throughout the night) as well as Haldol, transferred into the ICU. Gentle IV fluid hydration. Lethargic without respiratory distress. Sitter at bedside . Hemodynamically stable. Maintaining O2 sats of 93% on 2 L nasal cannula. Repeat chest x-ray reporting CHF and pulmonary vascular congestion. Maintained on Cardizem drip. Afebrile. Objective - Vital Signs Vital signs: Vital Signs Temp 97.2 F L 11/04/16 07:41 Pulse 100 11/04/16 13:09 Resp 16 11/04/16 07:41 BP 147/112 11/04/16 07:41 Pulse Ox 94 L 11/04/16 07:41 - Exam PHYSICAL EXAM: VITAL SIGNS: Temperature 90.8, pulse 94 blood pressure 140/91 and O2 sat 93% on 2 L nasal cannula GENERAL: [Lying in bed, no acute distress, lethargic] HEENT: [Pupils equal conjunctiva normal. No conjunctival pallor] NECK: [Supple, no JVD] RESPIRATORY EFFORT:[normal] LUNGS: [Diminished, no rhonchi crackles or wheeze] CARDIOVASCULAR[irregular, no murmurs rubs or gallops, no edema] GI: [Abdomen soft, nontender, positive bowel sounds.] NEURO/PSYCH: [Alert and oriented -1, confused . - Labs CBC & Chem 7: 11/02/16 05:43 11/02/16 05:43 Assessment and Plan Plan: 1. Acute DTs in a patient with EtOH abuse requiring both Ativan and Haldol. 2.Acute on chronic Atrial fibrillation with RVR on Cardizem drip 3. Acute alcoholic hepatitis with elevated LFTs, in a patient with EtOH abuse]. 4.[COPD, possibly acute exacerbation with MRSA-possibly, colonization, tracheobronchitis]. 5. Acute on Chronic exacerbation CHF, systolic dysfunction, EF 40%]. 6. Hypertension 7. Hyperlipidemia 8. History of PE on Xarelto 9. Graves' disease, on Tapazole 10. CAD, recent non-STEMI 11. History of nicotine dependence 12. Elevated troponins, secondary to atrial fibrillation, not acute coronary syndrome as per cardiology. Plan: Continue on current medication regime , vancomycin, Lasix ,monitoring and symptomatic treatment. Maintain IV fluid hydration .strict aspiration precautions Maintain CIWA protocol and Haldol. Close monitoring of electrolytes with repeat labs ordered for a.m. Further recommendations to follow. Gnosis guarded given multiple complex medical issues. The impression and plan of care has been dictated as directed. : I performed a H&P examination of this patient and discussed the same with the dictator. I agree with the dictator's note. Any additional findings/opinions/ etc. will be noted.
== END 2016-11-04 15:11 | disposition home or self-care (01) | DRG 280 ==
LOC: EC 10:56 → 6SEL 12:55 → 5MS5E 13:41 → 6SEL 13:42 → 6ICU 10-29 01:38 → 6SEL 10-30 13:50 → 3SUR 11-02 20:19
PROVIDERS: ADMIT Hospitalist; ATTEND Hospitalist
DX: I48.1 Persistent atrial fibrillation (principal); G93.41 Metabolic encephalopathy; I21.4 Non-ST elevation (NSTEMI) myocardial infarction; I50.43 Acute on chronic combined systolic (congestive) and diastolic (congestive) heart failure; F10.231 Alcohol dependence with withdrawal delirium; J18.9 Pneumonia, unspecified organism; I11.0 Hypertensive heart disease with heart failure; I42.6 Alcoholic cardiomyopathy; E87.1 Hypo-osmolality and hyponatremia; J44.0 Chronic obstructive pulmonary disease with (acute) lower respiratory infection; J44.1 Chronic obstructive pulmonary disease with (acute) exacerbation; E05.00 Thyrotoxicosis with diffuse goiter without thyrotoxic crisis or storm; E78.5 Hyperlipidemia, unspecified; F41.9 Anxiety disorder, unspecified; I25.10 Atherosclerotic heart disease of native coronary artery without angina pectoris; I48.0 Paroxysmal atrial fibrillation; I48.2 Chronic atrial fibrillation; I48.92 Unspecified atrial flutter; K70.10 Alcoholic hepatitis without ascites; B95.62 Methicillin resistant Staphylococcus aureus infection as the cause of diseases classified elsewhere; Z79.01 Long term (current) use of anticoagulants; Z79.899 Other long term (current) drug therapy; Z80.8 Family history of malignant neoplasm of other organs or systems; Z82.49 Family history of ischemic heart disease and other diseases of the circulatory system; Z85.828 Personal history of other malignant neoplasm of skin; Z86.711 Personal history of pulmonary embolism; Z87.01 Personal history of pneumonia (recurrent); Z87.891 Personal history of nicotine dependence; Z91.19 Patient's noncompliance with other medical treatment and regimen; Z79.82 Long term (current) use of aspirin; Z79.4 Long term (current) use of insulin
CPT/HCPCS: 36415; 71010; 71020; 80048; 80053; 80061; 80202; 80306; 81003; 82550; 82553; 83036; 83735; 83880; 84100; 84439; 84443; 84481; 84484; 85025; 85379; 85610; 85730; 87040; 87070; 87205; 93005; 94640; 96361; 96365; 96376; 99291

== ENCOUNTER → 2016-11-30 | Outpatient (CLI) | payer OTHER ==
[2016-11-30 10:56] LABS: Basophils % (A) 0 %; CH 28.3; CHCM 31.7; Eosinophils # (A) 0.1 k/uL (0-0.7); Eosinophils % (A) 3 %; HDW 3.18; HGB 11.2 gm/dL (13.0-17.5); Hypochromasia Slight; Luc # (Auto) 0.13; Luc % (Auto) 3; Lymphocytes # (A) 1.8 k/uL (1.0-4.8); Lymphocytes % (A) 46 %; MCH 27.6 pg (25.0-35.0); MCV 89.3 fL (80.0-100.0); Mean Platelet Volume 6.6; Monocytes # (A) 0.3 k/uL (0-1.0); Monocytes % (A) 6 %; Neutrophils # (A) 1.6 k/uL (1.3-7.7); Neutrophils % (A) 41 %; RBC 4.04 m/uL (4.30-5.90); RDW 15.9 % (11.5-15.5); WBC 3.9 k/uL (3.8-10.6)
[2016-11-30 11:27] LABS: ALT 52 U/L (21-72); AST 34 U/L (17-59)
== END | disposition home or self-care (01) ==
LOC: LABWHC1 10:02
PROVIDERS: ATTEND Internal Medicine Endocrinology, Diabetes & Metabolism
DX: E05.90 Thyrotoxicosis, unspecified without thyrotoxic crisis or storm (principal); I48.2 Chronic atrial fibrillation; E04.2 Nontoxic multinodular goiter
CPT/HCPCS: 36415; 82570; 83789; 84439; 84443; 84445; 84450; 84460; 84481; 85025; 86376

== ENCOUNTER → 2016-12-18 | Outpatient (CLI) | payer OTHER ==
[2016-12-18 10:12] LABS: ALT 58 U/L (21-72); AST 36 U/L (17-59); Aty Lym Flag Slight; Basophils % (A) 1 %; CH 27.3; CHCM 31.8; Eosinophils # (A) 0.1 k/uL (0-0.7); Eosinophils % (A) 2 %; HCT 39.6 % (39.0-53.0); HDW 3.11; HGB 13.4 gm/dL (13.0-17.5); Hypochromasia Slight; Luc # (Auto) 0.35; Luc % (Auto) 5; Lymphocytes # (A) 2.5 k/uL (1.0-4.8); Lymphocytes % (A) 35 %; MCH 29.1 pg (25.0-35.0); MCHC 33.9 g/dL (31.0-37.0); MCV 85.9 fL (80.0-100.0); Mean Platelet Volume 6.2; Monocytes # (A) 0.6 k/uL (0-1.0); Monocytes % (A) 8 %; Neutrophils # (A) 3.6 k/uL (1.3-7.7); Neutrophils % (A) 50 %; RBC 4.61 m/uL (4.30-5.90); RDW 15.8 % (11.5-15.5); WBC 7.3 k/uL (3.8-10.6); WBC (Perox) 7.64
[2016-12-18 11:27] LABS: Manual Review Performed
== END ==
LOC: LABWHC1 09:25
PROVIDERS: ATTEND Internal Medicine Endocrinology, Diabetes & Metabolism
DX: E05.90 Thyrotoxicosis, unspecified without thyrotoxic crisis or storm (principal)
CPT/HCPCS: 36415; 84439; 84443; 84450; 84460; 84481; 85025

== ENCOUNTER → 2017-02-12 | Outpatient (CLI) | payer OTHER ==
[2017-02-12 16:13] LABS: Anisocytosis Slight; Basophils % (A) 0 %; CH 28.1; CHCM 31.9; Eosinophils # (A) 0.1 k/uL (0-0.7); Eosinophils % (A) 1 %; HCT 43.6 % (39.0-53.0); HDW 2.53; HGB 14.2 gm/dL (13.0-17.5); Luc # (Auto) 0.25; Luc % (Auto) 4; Lymphocytes % (A) 34 %; MCH 28.7 pg (25.0-35.0); MCHC 32.5 g/dL (31.0-37.0); MCV 88.4 fL (80.0-100.0); Mean Platelet Volume 6.7; Monocytes # (A) 0.4 k/uL (0-1.0); Monocytes % (A) 6 %; Neutrophils # (A) 3.1 k/uL (1.3-7.7); Neutrophils % (A) 54 %; RBC 4.93 m/uL (4.30-5.90); RDW 16.9 % (11.5-15.5); WBC 5.7 k/uL (3.8-10.6); WBC (Perox) 5.64
== END | disposition home or self-care (01) ==
LOC: LABWHC1 15:10
PROVIDERS: ATTEND Internal Medicine Endocrinology, Diabetes & Metabolism
DX: E05.90 Thyrotoxicosis, unspecified without thyrotoxic crisis or storm (principal)
CPT/HCPCS: 36415; 84439; 84443; 84450; 84460; 84481; 85025

== ENCOUNTER 2017-07-23 21:00 | Emergency (ER) | payer OTHER ==
[2017-07-23] MEDS ORDERED: predniSONE 20 MG TAB PO STA (21:19)
[2017-07-23] MEDS ORDERED: IPRATROPIUM-ALBUTEROL 3 ML NEB INHALATION STA (21:21)
[2017-07-23 21:47] LABS: D-Dimer 0.51 mg/L FEU (<0.60)
--- NOTE | 2017-07-23 21:48 | XR ---
EXAMINATION TYPE: XR chest 2V DATE OF EXAM: 07/23/2017 COMPARISON: 05/31/2017 INDICATION: Difficulty breathing short of breath productive cough TECHNIQUE: Frontal and lateral views of the chest are obtained. FINDINGS: The heart size is normal. The pulmonary vasculature is normal. Mild scattered infiltrate is through the right mid and lower lung field. Suspicious consolidation is not identified. There are old rib fractures on the right. Posterior pleural effusion may be present. IMPRESSION: 1. Scattered infiltrate to the right lower lobe may represent some developing pneumonia. Clinical cor relation and follow-up is recommended.
[2017-07-23 21:50] LABS: Anisocytosis Slight; Basophils % (A) 0 %; Eosinophils # (A) 0.1 k/uL (0-0.7); Eosinophils % (A) 2 %; HCT 30.2 % (39.0-53.0); HGB 9.1 gm/dL (13.0-17.5); Hypochromasia Moderate; Lymphocytes # (A) 2.4 k/uL (1.0-4.8); Lymphocytes % (A) 36 %; MCH 28.7 pg (25.0-35.0); MCHC 30.2 g/dL (31.0-37.0); MCV 94.9 fL (80.0-100.0); Macrocytosis Slight; Mean Platelet Volume 6.6; Monocytes # (A) 0.4 k/uL (0-1.0); Monocytes % (A) 6 %; Neutrophils # (A) 3.7 k/uL (1.3-7.7); Neutrophils % (A) 54 %; Platelet Count 172 k/uL (150-450); RBC 3.18 m/uL (4.30-5.90); RDW 18.5 % (11.5-15.5); WBC 6.8 k/uL (3.8-10.6)
[2017-07-23 21:51] LABS: INR 1.4 (<1.2); Partial Thromboplastin Time 29.1 sec (22.0-30.0); Prothrombin Time 13.1 sec (9.0-12.0)
[2017-07-23] MEDS ORDERED: cefTRIAXone IN SWFI 2,000 MG/20 ML SYRINGE IVP STA (21:51)
[2017-07-23] MEDS ORDERED: AZITHROMYCIN 500 MG in SODIUM CHLORIDE 0.9% 250 ML IVPB STA (21:51)
--- NOTE | 2017-07-23 21:56 | ED ---
SOB HPI - General Chief Complaint: Shortness of Breath Stated Complaint: ROSE MARIE Time Seen by Provider: 07/23/17 21:14 Source: patient, EMS Mode of arrival: EMS Limitations: no limitations - History of Present Illness Initial Comments: 22 years old male with a multiple comorbidities presented with shortness of breath is a shortness of breath started 24 hours ago he got now unbearable he was unable to walk more than a few feet today minimal exertion made ambulate ambulation difficult has a history of congestive heart failure he has a history of atrial fibrillation, pulmonary embolism, COPD and history of respiratory failure. He required trach and he was in the ICU for the longest time. He is also complaining about chest pain and it's worse with a deep breaths him and denies any fever no chills has been coughing up any phlegm - Related Data Home Medications Medication Instructions Recorded Confirmed Acetaminophen Tab [Tylenol Tab] 650 mg PO Q6H PRN 07/23/17 07/23/17 Amiodarone HCl [Pacerone] 200 mg PO DAILY 07/23/17 07/23/17 Budesonide [Pulmicort] 0.5 mg INHALATION RT-BID 07/23/17 07/23/17 Famotidine [Pepcid] 20 mg PO DAILY 07/23/17 07/23/17 HYDROcodone/APAP 5-325MG [[place] 1 tab PO Q6H PRN 07/23/17 07/23/17 5-325] Ipratropium-Albuterol Nebulize 3 ml INHALATION RT-Q4H PRN 07/23/17 07/23/17 [Duoneb 0.5 mg-3 mg/3 ml Soln] Ipratropium-Albuterol Nebulize 3 ml INHALATION RT-QID 07/23/17 07/23/17 [Duoneb 0.5 mg-3 mg/3 ml Soln] Lidocaine 5% Patch [Lidoderm] 1 patch TOPICAL DAILY 07/23/17 07/23/17 Metoprolol Tartrate [Lopressor] 50 mg PO BID 07/23/17 07/23/17 PARoxetine HCL [Paxil] 40 mg PO DAILY 07/23/17 07/23/17 Polyethylene Glycol 3350 [Miralax] 17 gm PO DAILY 07/23/17 07/23/17 Primidone [Mysoline] 75 mg PO HS 07/23/17 07/23/17 QUEtiapine [SEROquel] 100 mg PO BID 07/23/17 07/23/17 Rivaroxaban [Xarelto] 20 mg PO HS 07/23/17 07/23/17 Thiamine [Vitamin B-1] 100 mg PO BID 07/23/17 07/23/17 Previous Rx's Medication Instructions Recorded Amoxicillin/Potassium Clav 1 tab PO Q12HR #20 tab 07/23/17 [Augmentin 875-125 Tablet] Allergies Allergy/AdvReac Type Severity Reaction Status Date / Time warfarin [From Coumadin] AdvReac MAKES Verified 07/23/17 21:24 BLOOD TOO THIN Review of Systems ROS Statement: Those systems with pertinent positive or pertinent negative responses have been documented in the HPI. ROS Other: All systems not noted in ROS Statement are negative. Past Medical History Past Medical History: Atrial Fibrillation, Atrial Flutter, Cancer, Chest Pain / Angina, Heart Failure, COPD, Hyperlipidemia, Hypertension, Myocardial Infarction ([place]), Pneumonia, Pulmonary Embolus ([place]), Syncope, Thyroid Disorder Additional Past Medical History / Comment(s): Pt recently admitted 10/13/16 with CHF/COPD/alcoholic cardiomyopathy/alcoholism. Other hx: Paroxysmal A flutter , CHF, cardiomyopathy with an ejection fraction of 40%, Graves disease, tremors , pulmonary embolism 04/22/2016, squamous cell skin cancer with removal. Last Myocardial Infarction Date:: October 2016 History of Any Multi-Drug Resistant Organisms: MRSA Date of last positivie culture/infection: 05/24/17 MDRO Source:: bronch/sputum Past Surgical History: Adenoidectomy, Cholecystectomy, Tonsillectomy Additional Past Surgical History / Comment(s): RT HAND SX (TENDON REPAIR).RT THIGH SKIN LESION EXCISION(SQUAMOUS CELL CARCINOMA), functional endoscopic sinus surgery/septoplasty/reduction of inferior turbinates. Past Anesthesia/Blood Transfusion Reactions: No Reported Reaction Past Psychological History: Anxiety Smoking Status: Current some day smoker Past Alcohol Use History: Occasional Past Drug Use History: None Reported - Past Family History Mother Family Medical History: Cancer, Congestive Heart Failure (CHF), Coronary Artery Disease (CAD), CVA/TIA Additional Family Medical History / Comment(s): Mother had throat cancer and of this at the age of 68yrs. Father Additional Family Medical History / Comment(s): IN [place] WHEN PT WAS 1 YEARS OLD. General Exam - General Exam Comments Initial Comments: General: The patient is awake and alert, in no distress, and does not appear acutely ill. Skin: Skin is warm and dry and no rashes or lesions are noted. Eye: Pupils are equal, round and reactive to light, extra-ocular movements are intact; there is normal conjunctiva bilaterally. Ears, nose, mouth and throat: There are moist mucous membranes and no oral lesions. Neck: The neck is supple, there is no tenderness or JVD. Cardiovascular: There is a regular rate and rhythm. No murmur, rub or gallop is appreciated. Respiratory: To auscultation bilateral, noticed crackles bilaterally and now moderate to COPD as well Gastrointestinal: Soft, non-distended, non-tender abdomen without masses or organomegaly noted. There is no rebound or guarding present. Bowel sounds are unremarkable. Back: There is no tenderness to palpation in the midline. There is no obvious deformity. Musculoskeletal: Normal ROM, no tenderness, There is no pedal edema. There is no calf tenderness or swelling. No cords were appreciated. Neurological: CN II-XII intact, Cranial nerves III through XII are intact. There are no obvious motor or sensory deficits. Coordination appears grossly intact. Speech is normal. Psychiatric: Cooperative, appropriate mood & affect, normal judgment. Limitations: no limitations Course Vital Signs 07/23/17 07/23/17 07/23/17 21:15 21:35 21:43 Temperature 98.8 F Pulse Rate 90 86 88 Respiratory 20 16 16 Rate Blood Pressure 163/86 O2 Sat by Pulse 98 Oximetry 07/23/17 22:11 Temperature Pulse Rate 86 Respiratory 18 Rate Blood Pressure 152/86 O2 Sat by Pulse 98 Oximetry EKG is normal sinus rhythm ventricular rate is 92 PA interval is 150 QRS duration is 100 QT/QTC 372/460 review of this EKG does not reveal any ST elevation or ST depression Patient was reassessed at 2230, his labs are reviewed and discussed with him and his caregiver his cousin his chest x-ray is compatible with a pneumonia CBC is normal d-dimer is normal troponin is normal BNP is greater than 5000 but he is on a water pill and does have a history of congestive heart failure this is chest x-ray is not consistent with a congestive heart failure and his clinical exam was also not consistent with a congestive heart failure today he is comfortable going home he got 2 g of Rocephin and 500 mg Zithromax and he'll be gone home on now Levaquin 750 mg once daily for next 7 days then he will follow up with his family doctor Medical Decision Making - Lab Data Result diagrams: 07/23/17 21:12 07/23/17 21:12 Lab Results 07/23/17 07/23/17 07/23/17 Range/Units 21:12 21:12 21:12 WBC 6.8 (3.8-10.6) k/uL RBC 3.18 L (4.30-5.90) m/uL Hgb 9.1 L (13.0-17.5) gm/dL Hct 30.2 L (39.0-53.0) % MCV 94.9 (80.0-100.0) fL MCH 28.7 (25.0-35.0) pg MCHC 30.2 L (31.0-37.0) g/dL RDW 18.5 H (11.5-15.5) % Plt Count 172 (150-450) k/uL Neutrophils % 54 % Lymphocytes % 36 % Monocytes % 6 % Eosinophils % 2 % Basophils % 0 % Neutrophils # 3.7 (1.3-7.7) k/uL Lymphocytes # 2.4 (1.0-4.8) k/uL Monocytes # 0.4 (0-1.0) k/uL Eosinophils # 0.1 (0-0.7) k/uL Basophils # 0.0 (0-0.2) k/uL Hypochromasia Moderate Anisocytosis Slight Macrocytosis Slight PT (9.0-12.0) sec INR (<1.2) APTT (22.0-30.0) sec D-Dimer (<0.60) mg/L FEU Sodium 139 (137-145) mmol/L Potassium 3.9 (3.5-5.1) mmol/L Chloride 109 H (98-107) mmol/L Carbon Dioxide 21 L (22-30) mmol/L Anion Gap 9 mmol/L BUN 17 (9-20) mg/dL Creatinine 0.90 (0.66-1.25) mg/dL Est GFR (MDRD) Af Amer >60 (>60 ml/min/1.73 sqM) Est GFR (MDRD) Non-Af >60 (>60 ml/min/1.73 sqM) Glucose 101 H (74-99) mg/dL Calcium 8.7 (8.4-10.2) mg/dL Total Bilirubin 0.6 (0.2-1.3) mg/dL AST 27 (17-59) U/L ALT 31 (21-72) U/L Alkaline Phosphatase 145 H (38-126) U/L Total Creatine Kinase 36 L (55-170) U/L CK-MB (CK-2) 0.8 (0.0-2.4) ng/mL CK-MB (CK-2) Rel Index 2.2 Troponin I 0.018 (0.000-0.034) ng/mL NT-Pro-B Natriuret Pep pg/mL Total Protein 6.9 (6.3-8.2) g/dL Albumin 3.4 L (3.5-5.0) g/dL 07/23/17 07/23/17 Range/Units 21:12 21:12 WBC (3.8-10.6) k/uL RBC (4.30-5.90) m/uL Hgb (13.0-17.5) gm/dL Hct (39.0-53.0) % MCV (80.0-100.0) fL MCH (25.0-35.0) pg MCHC (31.0-37.0) g/dL RDW (11.5-15.5) % Plt Count (150-450) k/uL Neutrophils % % Lymphocytes % % Monocytes % % Eosinophils % % Basophils % % Neutrophils # (1.3-7.7) k/uL Lymphocytes # (1.0-4.8) k/uL Monocytes # (0-1.0) k/uL Eosinophils # (0-0.7) k/uL Basophils # (0-0.2) k/uL Hypochromasia Anisocytosis Macrocytosis PT 13.1 H (9.0-12.0) sec INR 1.4 H (<1.2) APTT 29.1 (22.0-30.0) sec D-Dimer 0.51 (<0.60) mg/L FEU Sodium (137-145) mmol/L Potassium (3.5-5.1) mmol/L Chloride (98-107) mmol/L Carbon Dioxide (22-30) mmol/L Anion Gap mmol/L BUN (9-20) mg/dL Creatinine (0.66-1.25) mg/dL Est GFR (MDRD) Af Amer (>60 ml/min/1.73 sqM) Est GFR (MDRD) Non-Af (>60 ml/min/1.73 sqM) Glucose (74-99) mg/dL Calcium (8.4-10.2) mg/dL Total Bilirubin (0.2-1.3) mg/dL AST (17-59) U/L ALT (21-72) U/L Alkaline Phosphatase (38-126) U/L Total Creatine Kinase (55-170) U/L CK-MB (CK-2) (0.0-2.4) ng/mL CK-MB (CK-2) Rel Index Troponin I (0.000-0.034) ng/mL NT-Pro-B Natriuret Pep 5730 pg/mL Total Protein (6.3-8.2) g/dL Albumin (3.5-5.0) g/dL Disposition Clinical Impression: Shortness of breath, Pneumonia Disposition: HOME SELF-CARE Condition: Fair Instructions: Chronic Bronchitis (ED) Prescriptions: Amoxicillin/Potassium Clav [Augmentin 875-125 Tablet] 1 tab PO Q12HR #20 tab Referrals: Mónica Acosta MD [Primary Care Provider] - 1-2 days
[2017-07-23 22:01] LABS: ALT 31 U/L (21-72); AST 27 U/L (17-59); Albumin 3.4 g/dL (3.5-5.0); Alkaline Phosphatase 145 U/L (38-126); Anion Gap 9 mmol/L; Blood Urea Nitrogen 17 mg/dL (9-20); Calcium 8.7 mg/dL (8.4-10.2); Carbon Dioxide 21 mmol/L (22-30); Chloride 109 mmol/L (98-107); Glucose 101 mg/dL (74-99); Potassium 3.9 mmol/L (3.5-5.1); Sodium 139 mmol/L (137-145); Total Bilirubin 0.6 mg/dL (0.2-1.3); Total Protein 6.9 g/dL (6.3-8.2)
[2017-07-23 22:11] LABS: Creatine Kinase MB 0.8 ng/mL (0.0-2.4); Troponin I 0.018 ng/mL (0.000-0.034)
[2017-07-23 22:12] VITALS: BP 152/86; RESP 18
[2017-07-24] MEDS ORDERED: HYDROcodone/APAP 5-325MG 1 EACH TAB PO STA (00:06)
[2017-07-24 00:09] VITALS: PULSE 83; TEMP 98.2
== END 2017-07-24 00:38 | disposition home or self-care (01) ==
LOC: EC 21:00
DX: J18.9 Pneumonia, unspecified organism (principal); I11.0 Hypertensive heart disease with heart failure; I50.9 Heart failure, unspecified; I48.91 Unspecified atrial fibrillation; J44.9 Chronic obstructive pulmonary disease, unspecified; F41.9 Anxiety disorder, unspecified; F17.200 Nicotine dependence, unspecified, uncomplicated; Z79.01 Long term (current) use of anticoagulants; Z79.51 Long term (current) use of inhaled steroids; Z79.899 Other long term (current) drug therapy; Z88.8 Allergy status to other drugs, medicaments and biological substances; Z86.14 Personal history of Methicillin resistant Staphylococcus aureus infection; Z85.828 Personal history of other malignant neoplasm of skin; Z86.711 Personal history of pulmonary embolism; Z86.79 Personal history of other diseases of the circulatory system; Z86.69 Personal history of other diseases of the nervous system and sense organs; Z98.890 Other specified postprocedural states; Z82.49 Family history of ischemic heart disease and other diseases of the circulatory system; Z53.8 Procedure and treatment not carried out for other reasons
CPT/HCPCS: 36415; 94640; 93005; 85379; 83880; 80053; 82550; 82553; 84484; 85025; 85610; 85730; 87040; 71046; 99285; 96365; 96366; 96375; J0456; J0696; J7512

== ENCOUNTER 2017-08-11 01:30 | Emergency (ER) | payer OTHER ==
[2017-08-11 01:39] VITALS: BP 122/65; PULSE 90; RESP 16; TEMP 97.2
--- NOTE | 2017-08-11 04:37 | ED ---
Alcohol HPI - General Chief Complaint: Alcohol Stated Complaint: ETOH Time Seen by Provider: 08/11/17 01:39 Source: EMS Mode of arrival: EMS Limitations: altered mental status - History of Present Illness Initial Comments: This patient is a 52-year-old man who is here for alcohol intoxication. The patient's roommate called EMS after he thought that the patient had had too much to drink. The patient admits to drinking "a couple of beers." He himself is denying any complaints. The patient does state that he did bump his nose earlier in the night, acknowledging some swelling but denying significant pain. No epistaxis. Loss consciousness MD Complaint: alcohol intoxication Last Drink: just GRAIN I [employer] Previous Visits for Alcohol Intoxication?: Yes Recent Trauma: No Associated Symptoms: denies other symptoms Chronic Alcohol Use: Yes - Related Data Home Medications Medication Instructions Recorded Confirmed Acetaminophen Tab [Tylenol Tab] 650 mg PO Q6H PRN 07/23/17 07/23/17 Amiodarone HCl [Pacerone] 200 mg PO DAILY 07/23/17 07/23/17 Budesonide [Pulmicort] 0.5 mg INHALATION RT-BID 07/23/17 07/23/17 Famotidine [Pepcid] 20 mg PO DAILY 07/23/17 07/23/17 HYDROcodone/APAP 5-325MG [[place] 1 tab PO Q6H PRN 07/23/17 07/23/17 5-325] Ipratropium-Albuterol Nebulize 3 ml INHALATION RT-Q4H PRN 07/23/17 07/23/17 [Duoneb 0.5 mg-3 mg/3 ml Soln] Ipratropium-Albuterol Nebulize 3 ml INHALATION RT-QID 07/23/17 07/23/17 [Duoneb 0.5 mg-3 mg/3 ml Soln] Lidocaine 5% Patch [Lidoderm] 1 patch TOPICAL DAILY 07/23/17 07/23/17 Metoprolol Tartrate [Lopressor] 50 mg PO BID 07/23/17 07/23/17 PARoxetine HCL [Paxil] 40 mg PO DAILY 07/23/17 07/23/17 Polyethylene Glycol 3350 [Miralax] 17 gm PO DAILY 07/23/17 07/23/17 Primidone [Mysoline] 75 mg PO HS 07/23/17 07/23/17 QUEtiapine [SEROquel] 100 mg PO BID 07/23/17 07/23/17 Rivaroxaban [Xarelto] 20 mg PO HS 07/23/17 07/23/17 Thiamine [Vitamin B-1] 100 mg PO BID 07/23/17 07/23/17 Previous Rx's Medication Instructions Recorded Amoxicillin/Potassium Clav 1 tab PO Q12HR #20 tab 07/23/17 [Augmentin 875-125 Tablet] Allergies Allergy/AdvReac Type Severity Reaction Status Date / Time warfarin [From Coumadin] AdvReac MAKES Verified 07/23/17 21:24 BLOOD TOO THIN Review of Systems ROS Statement: Those systems with pertinent positive or pertinent negative responses have been documented in the HPI. ROS Other: All systems not noted in ROS Statement are negative. Constitutional: Denies: fever, chills, weakness Eyes: Denies: eye pain, vision change ENT: Reports: other. Denies: epistaxis Respiratory: Denies: cough, dyspnea Cardiovascular: Denies: chest pain, syncope Gastrointestinal: Denies: abdominal pain, vomiting Musculoskeletal: Denies: back pain Neurological: Denies: headache, weakness, numbness Past Medical History Past Medical History: Atrial Fibrillation, Atrial Flutter, Cancer, Chest Pain / Angina, Heart Failure, COPD, Hyperlipidemia, Hypertension, Myocardial Infarction ([place]), Pneumonia, Pulmonary Embolus ([place]), Syncope, Thyroid Disorder Additional Past Medical History / Comment(s): Pt recently admitted 10/13/16 with CHF/COPD/alcoholic cardiomyopathy/alcoholism. Other hx: Paroxysmal A flutter , CHF, cardiomyopathy with an ejection fraction of 40%, Graves disease, tremors , pulmonary embolism 04/22/2016, squamous cell skin cancer with removal. Last Myocardial Infarction Date:: October 2016 History of Any Multi-Drug Resistant Organisms: MRSA Date of last positivie culture/infection: 05/24/17 MDRO Source:: bronch/sputum Past Surgical History: Adenoidectomy, Cholecystectomy, Tonsillectomy Additional Past Surgical History / Comment(s): RT HAND SX (TENDON REPAIR).RT THIGH SKIN LESION EXCISION(SQUAMOUS CELL CARCINOMA), functional endoscopic sinus surgery/septoplasty/reduction of inferior turbinates. Past Anesthesia/Blood Transfusion Reactions: No Reported Reaction Past Psychological History: Anxiety Smoking Status: Current some day smoker Past Alcohol Use History: Occasional Past Drug Use History: None Reported - Past Family History Mother Family Medical History: Cancer, Congestive Heart Failure (CHF), Coronary Artery Disease (CAD), CVA/TIA Additional Family Medical History / Comment(s): Mother had throat cancer and of this at the age of 68yrs. Father Additional Family Medical History / Comment(s): IN [place] WHEN PT WAS 1 YEARS OLD. General Exam Limitations: altered mental status General appearance: alert, in no apparent distress Head exam: Present: atraumatic, normocephalic Eye exam: Present: normal appearance, PERRL, EOMI, nystagmus. Absent: scleral icterus, conjunctival injection ENT exam: Present: other (Patient has abrasion to the left aspect of his nose) Neck exam: Present: normal inspection, full ROM. Absent: tenderness Respiratory exam: Present: normal lung sounds bilaterally. Absent: respiratory distress, wheezes, rales, rhonchi, stridor, chest wall tenderness Cardiovascular Exam: Present: regular rate, normal rhythm, normal heart sounds. Absent: systolic murmur, diastolic murmur, rubs, gallop GI/Abdominal exam: Present: soft. Absent: distended, tenderness, guarding, rebound Extremities exam: Present: normal inspection. Absent: tenderness Neurological exam: Present: alert, oriented X3. Absent: motor sensory deficit Skin exam: Present: warm, dry, intact, normal color, abrasion Course Vital Signs 08/11/17 01:33 Temperature 97.2 F L Pulse Rate 90 Respiratory 16 Rate Blood Pressure 122/65 O2 Sat by Pulse 98 Oximetry Disposition Clinical Impression: Alcoholic intoxication Disposition: HOME SELF-CARE Condition: Fair Instructions: Alcohol Intoxication (ED), Abuse of Alcohol (ED) Referrals: Mónica Acosta MD [Primary Care Provider] - 1-2 days
== END 2017-08-11 04:46 | disposition home or self-care (01) ==
LOC: EC 01:30
DX: F10.129 Alcohol abuse with intoxication, unspecified (principal); I48.91 Unspecified atrial fibrillation; I48.92 Unspecified atrial flutter; I11.0 Hypertensive heart disease with heart failure; I50.9 Heart failure, unspecified; I25.2 Old myocardial infarction; J44.9 Chronic obstructive pulmonary disease, unspecified; F41.9 Anxiety disorder, unspecified; F17.200 Nicotine dependence, unspecified, uncomplicated; Z86.711 Personal history of pulmonary embolism; Z85.828 Personal history of other malignant neoplasm of skin; Z79.01 Long term (current) use of anticoagulants; Z79.51 Long term (current) use of inhaled steroids; Z79.899 Other long term (current) drug therapy; Z88.8 Allergy status to other drugs, medicaments and biological substances
CPT/HCPCS: 99284

== ENCOUNTER 2017-08-13 19:42 | Inpatient (IN) | payer OTHER ==
[2017-08-13] MEDS ORDERED: SODIUM CHLORIDE 0.9% 1,000 ML IV STA (19:58)
[2017-08-13] MEDS ORDERED: DILTIAZEM 5 MG/ML 5 ML VIAL IVP STA ×2 (19:59→20:55)
--- NOTE | 2017-08-13 20:03 | ED ---
SOB HPI - General Chief Complaint: Shortness of Breath Stated Complaint: ROSE MARIE Time Seen by Provider: 08/13/17 19:51 Source: patient, EMS Mode of arrival: EMS Limitations: no limitations - History of Present Illness Initial Comments: 52 years old gentleman with a history of repetitive fibrillation with RVR also has a history of pulmonary embolism, congestive heart failure, hypertension and Graves' disease he is on his overall toe as well as amiodarone for further cardiac arrhythmias and he said he has been very compliant with all his medications, presents with a shortness of breath and mild chest pain no abdominal pain no frequency urgency dysuria no time symptoms of TIA or CVA - Related Data Home Medications Medication Instructions Recorded Confirmed Amiodarone HCl [Pacerone] 200 mg PO DAILY 07/23/17 08/13/17 Budesonide [Pulmicort] 0.5 mg INHALATION RT-BID 07/23/17 08/13/17 Famotidine [Pepcid] 20 mg PO DAILY 07/23/17 08/13/17 Ipratropium-Albuterol Nebulize 3 ml INHALATION RT-Q4H PRN 07/23/17 08/13/17 [Duoneb 0.5 mg-3 mg/3 ml Soln] Metoprolol Tartrate [Lopressor] 50 mg PO BID 07/23/17 08/13/17 PARoxetine HCL [Paxil] 40 mg PO DAILY 07/23/17 08/13/17 Primidone [Mysoline] 75 mg PO HS 07/23/17 08/13/17 QUEtiapine [SEROquel] 100 mg PO BID 07/23/17 08/13/17 Rivaroxaban [Xarelto] 20 mg PO HS 07/23/17 08/13/17 Thiamine [Vitamin B-1] 100 mg PO BID 07/23/17 08/13/17 Allergies Allergy/AdvReac Type Severity Reaction Status Date / Time warfarin [From Coumadin] AdvReac MAKES Verified 08/13/17 20:40 BLOOD TOO THIN Review of Systems ROS Statement: Those systems with pertinent positive or pertinent negative responses have been documented in the HPI. ROS Other: All systems not noted in ROS Statement are negative. Past Medical History Past Medical History: Atrial Fibrillation, Atrial Flutter, Cancer, Chest Pain / Angina, Heart Failure, COPD, Hyperlipidemia, Hypertension, Myocardial Infarction ([place]), Pneumonia, Pulmonary Embolus (PE), Syncope, Thyroid Disorder Additional Past Medical History / Comment(s): Pt recently admitted 10/13/16 with CHF/COPD/alcoholic cardiomyopathy/alcoholism. Other hx: Paroxysmal A flutter , CHF, cardiomyopathy with an ejection fraction of 40%, Graves disease, tremors , pulmonary embolism 04/22/2016, squamous cell skin cancer with removal. Last Myocardial Infarction Date:: October 2016 History of Any Multi-Drug Resistant Organisms: MRSA Date of last positivie culture/infection: 05/24/17 MDRO Source:: bronch/sputum Past Surgical History: Adenoidectomy, Cholecystectomy, Tonsillectomy Additional Past Surgical History / Comment(s): RT HAND SX (TENDON REPAIR).RT THIGH SKIN LESION EXCISION(SQUAMOUS CELL CARCINOMA), functional endoscopic sinus surgery/septoplasty/reduction of inferior turbinates. Past Anesthesia/Blood Transfusion Reactions: No Reported Reaction Past Psychological History: Anxiety Smoking Status: Former smoker Past Alcohol Use History: Heavy Past Drug Use History: None Reported - Past Family History Mother Family Medical History: Cancer, Congestive Heart Failure (CHF), Coronary Artery Disease (CAD), CVA/TIA Additional Family Medical History / Comment(s): Mother had throat cancer and of this at the age of 68yrs. Father Additional Family Medical History / Comment(s): IN [place] WHEN PT WAS 1 YEARS OLD. General Exam - General Exam Comments Initial Comments: General: The patient is awake and alert, in mild distress Skin: Skin is warm and dry and no rashes or lesions are noted. Eye: Pupils are equal, round and reactive to light, extra-ocular movements are intact; there is normal conjunctiva bilaterally. Ears, nose, mouth and throat: There are moist mucous membranes and no oral lesions. Neck: The neck is supple, there is no tenderness or JVD. Cardiovascular: There is a fib with a ventricular rate of 157 Respiratory: To auscultation bilateral, crease breath sounds bilaterally Gastrointestinal: Soft, non-distended, non-tender abdomen without masses or organomegaly noted. There is no rebound or guarding present. Bowel sounds are unremarkable. Back: There is no tenderness to palpation in the midline. There is no obvious deformity. Musculoskeletal: Normal ROM, no tenderness, There is no pedal edema. There is no calf tenderness or swelling. No cords were appreciated. Neurological: CN II-XII intact, Cranial nerves III through XII are intact. There are no obvious motor or sensory deficits. Coordination appears grossly intact. Speech is normal. Psychiatric: Cooperative, appropriate mood & affect, normal judgment. Limitations: no limitations Course Vital Signs 08/13/17 08/13/17 08/13/17 19:43 20:17 21:20 Temperature 97.0 F L Pulse Rate 158 H 158 H 132 H Respiratory 19 17 17 Rate Blood Pressure 162/103 175/81 149/90 O2 Sat by Pulse 94 L 93 L Oximetry EKG is admitted flutter with variable AV block ventricular rate is 161 UT interval, QRS duration is 90 QT/QTc is 260/425 review of this EKG does not reveal any ST elevation EKG be more inflammatory once we could slow it down or repeat EKG no clear ST is elevation or ST depression noticed she catch Medical Decision Making - Lab Data Result diagrams: 08/13/17 20:06 08/13/17 20:06 Lab Results 08/13/17 08/13/17 08/13/17 Range/Units 20:06 20:06 20:06 WBC 7.5 (3.8-10.6) k/uL RBC 4.19 L (4.30-5.90) m/uL Hgb 12.5 L D (13.0-17.5) gm/dL Hct 40.6 (39.0-53.0) % MCV 96.8 (80.0-100.0) fL MCH 29.9 (25.0-35.0) pg MCHC 30.9 L (31.0-37.0) g/dL RDW 17.8 H (11.5-15.5) % Plt Count 164 (150-450) k/uL Neutrophils % 68 % Lymphocytes % 23 % Monocytes % 7 % Eosinophils % 0 % Basophils % 0 % Neutrophils # 5.1 (1.3-7.7) k/uL Lymphocytes # 1.7 (1.0-4.8) k/uL Monocytes # 0.5 (0-1.0) k/uL Eosinophils # 0.0 (0-0.7) k/uL Basophils # 0.0 (0-0.2) k/uL Hypochromasia Slight Anisocytosis Slight Macrocytosis Slight PT (9.0-12.0) sec INR (<1.2) APTT (22.0-30.0) sec Sodium 141 (137-145) mmol/L Potassium 4.1 (3.5-5.1) mmol/L Chloride 109 H (98-107) mmol/L Carbon Dioxide 21 L (22-30) mmol/L Anion Gap 11 mmol/L BUN 15 (9-20) mg/dL Creatinine 0.80 (0.66-1.25) mg/dL Est GFR (MDRD) Af Amer >60 (>60 ml/min/1.73 sqM) Est GFR (MDRD) Non-Af >60 (>60 ml/min/1.73 sqM) Glucose 173 H (74-99) mg/dL Calcium 9.1 (8.4-10.2) mg/dL Total Bilirubin 0.8 (0.2-1.3) mg/dL AST 63 H (17-59) U/L ALT 59 (21-72) U/L Alkaline Phosphatase 192 H (38-126) U/L Total Creatine Kinase 77 (55-170) U/L CK-MB (CK-2) 2.6 H* (0.0-2.4) ng/mL CK-MB (CK-2) Rel Index 3.4 Troponin I 0.036 H* (0.000-0.034) ng/mL NT-Pro-B Natriuret Pep pg/mL Total Protein 7.4 (6.3-8.2) g/dL Albumin 3.8 (3.5-5.0) g/dL 08/13/17 08/13/17 Range/Units 20:06 20:06 WBC (3.8-10.6) k/uL RBC (4.30-5.90) m/uL Hgb (13.0-17.5) gm/dL Hct (39.0-53.0) % MCV (80.0-100.0) fL MCH (25.0-35.0) pg MCHC (31.0-37.0) g/dL RDW (11.5-15.5) % Plt Count (150-450) k/uL Neutrophils % % Lymphocytes % % Monocytes % % Eosinophils % % Basophils % % Neutrophils # (1.3-7.7) k/uL Lymphocytes # (1.0-4.8) k/uL Monocytes # (0-1.0) k/uL Eosinophils # (0-0.7) k/uL Basophils # (0-0.2) k/uL Hypochromasia Anisocytosis Macrocytosis PT 12.1 H (9.0-12.0) sec INR 1.3 H (<1.2) APTT 28.5 (22.0-30.0) sec Sodium (137-145) mmol/L Potassium (3.5-5.1) mmol/L Chloride (98-107) mmol/L Carbon Dioxide (22-30) mmol/L Anion Gap mmol/L BUN (9-20) mg/dL Creatinine (0.66-1.25) mg/dL Est GFR (MDRD) Af Amer (>60 ml/min/1.73 sqM) Est GFR (MDRD) Non-Af (>60 ml/min/1.73 sqM) Glucose (74-99) mg/dL Calcium (8.4-10.2) mg/dL Total Bilirubin (0.2-1.3) mg/dL AST (17-59) U/L ALT (21-72) U/L Alkaline Phosphatase (38-126) U/L Total Creatine Kinase (55-170) U/L CK-MB (CK-2) (0.0-2.4) ng/mL CK-MB (CK-2) Rel Index Troponin I (0.000-0.034) ng/mL NT-Pro-B Natriuret Pep 3620 pg/mL Total Protein (6.3-8.2) g/dL Albumin (3.5-5.0) g/dL Critical Care Time Total Critical Care Time: 45 Critical Care Time: She came in with extreme shortness of breath and now ventricular rate of 165, heart monitoring was done, oxygen was started set up the IV clinic he was started on a Cardizem drip 10 mg per hour after 50 mg bolus I didn't bring the heart rate down but not significantly 10 mg bolus was repeated, aware that he is on amiodarone and he has this happen to him quite a few times, cardiac workup was done CBC is normal INR is normal troponin is 0.036 07/20/2019 and does not look a lot different than before I did talk to Dr. Pradip sanchez he's hospitalist from [facility] patient be admitted under his service and will consult cardiology. Ideally he would need to be anticoagulated considering his elevated troponin and he is on insulin about low therefore he is not a candidate for any anticoagulation he will take his aspirin Disposition Clinical Impression: Atrial fibrillation with RVR, Elevated troponin, Shortness of breath Disposition: ADMITTED IP TO THIS HOSP Condition: Fair Referrals: Mónica Acosta MD [Primary Care Provider] - 1-2 days
[2017-08-13] MEDS: DILTIAZEM 125 MG in SODIUM CHLORIDE 0.9% 100 ML IV ONE (20:11)
[2017-08-13 20:21] LABS: Anisocytosis Slight; Basophils % (A) 0 %; Eosinophils % (A) 0 %; HCT 40.6 % (39.0-53.0); Hypochromasia Slight; Lymphocytes # (A) 1.7 k/uL (1.0-4.8); Lymphocytes % (A) 23 %; MCH 29.9 pg (25.0-35.0); MCHC 30.9 g/dL (31.0-37.0); MCV 96.8 fL (80.0-100.0); Macrocytosis Slight; Mean Platelet Volume 6.9; Monocytes # (A) 0.5 k/uL (0-1.0); Monocytes % (A) 7 %; Neutrophils # (A) 5.1 k/uL (1.3-7.7); Neutrophils % (A) 68 %; Platelet Count 164 k/uL (150-450); RBC 4.19 m/uL (4.30-5.90); RDW 17.8 % (11.5-15.5); WBC 7.5 k/uL (3.8-10.6)
[2017-08-13 20:31] LABS: INR 1.3 (<1.2); Partial Thromboplastin Time 28.5 sec (22.0-30.0); Prothrombin Time 12.1 sec (9.0-12.0)
[2017-08-13 20:35] LABS: ALT 59 U/L (21-72); AST 63 U/L (17-59); Albumin 3.8 g/dL (3.5-5.0); Alkaline Phosphatase 192 U/L (38-126); Anion Gap 11 mmol/L; Blood Urea Nitrogen 15 mg/dL (9-20); Calcium 9.1 mg/dL (8.4-10.2); Carbon Dioxide 21 mmol/L (22-30); Chloride 109 mmol/L (98-107); Glucose 173 mg/dL (74-99); Potassium 4.1 mmol/L (3.5-5.1); Sodium 141 mmol/L (137-145); Total Bilirubin 0.8 mg/dL (0.2-1.3); Total Protein 7.4 g/dL (6.3-8.2)
[2017-08-13 20:36] LABS: HGB 12.5 gm/dL (13.0-17.5)
[2017-08-13] MEDS ORDERED: MORPHINE SULFATE 4 MG/ML SYRINGE IVP STA (20:36)
[2017-08-13 20:44] LABS: Creatine Kinase MB 2.6 ng/mL (0.0-2.4); Troponin I 0.036 ng/mL (0.000-0.034)
--- NOTE | 2017-08-13 20:53 | XR ---
EXAMINATION TYPE: XR chest 2V DATE OF EXAM: 08/13/2017 COMPARISON: 07/23/2017 HISTORY: Short of breath TECHNIQUE: Frontal and lateral views of the chest are obtained. FINDINGS: Heart appears slightly enlarged. There is no gross heart failure. There is coarsening of i nterstitial pulmonary markings. There is slight blunting of right costophrenic angle. Bony thorax brendon ears intact. IMPRESSION: There is chronic pleural and pulmonary density on the right side consistent with inflamm atory disease and scarring that appears not significantly different than old exam. Old multiple right -sided healed rib fractures. No heart failure.
[2017-08-13] MEDS ORDERED: NITROGLYCERIN SL TABS 0.4 MG TAB SUBLINGUAL PRN (21:27)
[2017-08-13] MEDS ORDERED: MORPHINE SULFATE 4 MG/ML SYRINGE IV PRN (21:27)
[2017-08-13 22:35] VITALS: BMI 31.2
[2017-08-14] MEDS ORDERED: LORazepam 2 MG/ML INJ IV PRN (00:54)
[2017-08-14] MEDS ORDERED: THIAMINE 100 MG/ML 2 ML VIAL IM STA (00:54)
[2017-08-14] MEDS: IPRATROPIUM-ALBUTEROL 3 ML NEB INHALATION PRN ×4 (00:58→19:45)
[2017-08-14] MEDS ORDERED: SODIUM CHLORIDE 0.9% 1,000 ML with MVI, ADULT NO.4 WITH VIT K 10 ML, THIAMINE 100 MG, F... IV ONE ×4 (01:02)
[2017-08-14] MEDS: LORazepam 2 MG/ML INJ IV PRN ×6 (01:31→21:27)
[2017-08-14 02:24] LABS: Alcohol <10 mg/dL; Cholesterol 210 mg/dL (<200); Phosphorus 3.4 mg/dL (2.5-4.5); Triglycerides 50 mg/dL (<150)
[2017-08-14 02:31] LABS: LDL Cholesterol,Calculated 32 mg/dL (0-99)
[2017-08-14] MEDS ORDERED: NALOXONE 0.4 MG/ML 1 ML VIAL IV PRN (02:33)
[2017-08-14 02:36] LABS: HDL Cholesterol 168 mg/dL (40-60)
[2017-08-14 02:50] LABS: Creatine Kinase MB 2.4 ng/mL (0.0-2.4)
[2017-08-14 02:53] LABS: Troponin I 0.063 ng/mL (0.000-0.034)
--- NOTE | 2017-08-14 02:55 | P.HPIM ---
History of Present Illness H&P Date: 08/13/17 Chief Complaint: Shortness of breath 52-year-old male with history of paroxysmal A. fib on blood thinner, nonischemic cardiomyopathy most likely secondary to alcohol abuse with most recent left ventricular ejection fraction of 30-35%, alcohol abuse. Patient reported sudden onset palpitations with shortness of breath. This was associated with couple days of coughing productive of yellowish sputum. Without any fevers or chills, patient denies any chest pain however he reports due to forceful repeated coughing he is having some abdominal wall muscle pain and spasms. Patient claims to be compliant with his medications. However he continues to drink on regular basis at least 4 beers most of the week days at least 4-5 times a week. His last drink was 3 days ago and he feels that he is getting shaky and agitated because of not drinking and probably experiencing some withdrawal symptoms. Currently patient continues to have palpitations and feeling short of breath despite being on Cardizem drip. Otherwise he denies any focal neurologic deficits. Patient recent hospitalization from May 2017 was reviewed where the patient claims to not remember anything during that time as he was drinking and fell and presented to the hospital due to hydropneumothorax was a complicated course where he got intubated and then had the have a tracheostomy where he was transferred to [facility] at bedtime. However he eventually recovered and did well. Most recent 2-D echo also suggests left ventricular ejection fraction of 3035% per cardiology documentation seems like it's nonischemic cardiomyopathy most likely second to alcohol abuse history. Review of Systems Constitutional: Patient denies fever, denies chills, denies night sweating, denies significant weight changes Eyes: Patient denies visual changes, denies eye pain ENT: Patient denies ear pain, denies rhinorrhea, denies sore throat Cardiovascular: Patient denies chest pain, reports exertional dyspnea, denies peripheral leg edema, reports orthopnea, denies paroxysmal nocturnal dyspnea but reports waking up the middle of night due to coughing Respiratory:Patient reports cough, denies wheezing, reports shortness of breath Gastrointestinal: Patient denies diarrhea, denies constipation, denies nausea , denies vomiting, reports abdominal wall pain Genitourinary: Patient denies dysuria, denies hematuria, denies changes in urinary habits, denies genital lesions Musculoskeletal: Patient denies joint pain Psychiatric: Patient denies changes in mood or memory, denies suicidal ideation, denies anxiety Endocrine: Patient denies heat intolerance, denies cold intolerance, denies excessive thirst, denies polyuria Neurological: Patient denies focal neurologic deficits, denies weakness, denies numbness, denies tingling Hem/Lymphatic: Patient denies bleeding tendency, denies bruising, denies swollen lymph glands Allergic/Immun: Patient denies recent allergic reactions Skin: Patient denies rashes, denies pruritis, denies ulcers Past Medical History Past Medical History: Atrial Fibrillation, Atrial Flutter, Cancer, Chest Pain / Angina, Heart Failure, COPD, Hyperlipidemia, Hypertension, Myocardial Infarction ([place]), Pneumonia, Pulmonary Embolus (PE), Syncope, Thyroid Disorder Additional Past Medical History / Comment(s): Other hx: Paroxysmal A flutter, CHF, cardiomyopathy with an ejection fraction of 40%, Graves disease, tremors, pulmonary embolism 04/22/2016, squamous cell skin cancer with removal. Last Myocardial Infarction Date:: October 2016 History of Any Multi-Drug Resistant Organisms: MRSA Date of last positivie culture/infection: 05/24/17 MDRO Source:: bronch/sputum Past Surgical History: Adenoidectomy, Cholecystectomy, Tonsillectomy Additional Past Surgical History / Comment(s): RT HAND SX (TENDON REPAIR).RT THIGH SKIN LESION EXCISION(SQUAMOUS CELL CARCINOMA), functional endoscopic sinus surgery/septoplasty/reduction of inferior turbinates. Past Anesthesia/Blood Transfusion Reactions: No Reported Reaction Past Psychological History: Anxiety Additional Psychological History / Comment(s): Pt resides with his brother. He is independent. Smoking Status: Former smoker Past Alcohol Use History: Heavy Additional Past Alcohol Use History / Comment(s): Patient states that he drinks on the weekends only; about 6 drink per sitting. Past Drug Use History: None Reported - Past Family History Mother Family Medical History: Cancer, Congestive Heart Failure (CHF), Coronary Artery Disease (CAD), CVA/TIA Additional Family Medical History / Comment(s): Mother had throat cancer and of this at the age of 68yrs. Father Additional Family Medical History / Comment(s): IN [place] WHEN PT WAS 1 YEARS OLD. Medications and Allergies Home Medications Medication Instructions Recorded Confirmed Type Amiodarone HCl [Pacerone] 200 mg PO DAILY 07/23/17 08/13/17 History Budesonide [Pulmicort] 0.5 mg INHALATION RT-BID 07/23/17 08/13/17 History Famotidine [Pepcid] 20 mg PO DAILY 07/23/17 08/13/17 History Ipratropium-Albuterol Nebulize 3 ml INHALATION RT-Q4H PRN 07/23/17 08/13/17 History [Duoneb 0.5 mg-3 mg/3 ml Soln] Metoprolol Tartrate [Lopressor] 50 mg PO BID 07/23/17 08/13/17 History PARoxetine HCL [Paxil] 40 mg PO DAILY 07/23/17 08/13/17 History Primidone [Mysoline] 75 mg PO HS 07/23/17 08/13/17 History QUEtiapine [SEROquel] 100 mg PO BID 07/23/17 08/13/17 History Rivaroxaban [Xarelto] 20 mg PO HS 07/23/17 08/13/17 History Thiamine [Vitamin B-1] 100 mg PO BID 07/23/17 08/13/17 History Allergies Allergy/AdvReac Type Severity Reaction Status Date / Time warfarin [From Coumadin] AdvReac MAKES Verified 08/13/17 20:40 BLOOD TOO THIN Physical Exam Vitals: Vital Signs Temp Pulse Pulse Resp BP BP Pulse Ox 08/13/17 22:15 97.0 F L 141 H 22 156/88 95 08/13/17 21:55 124 H 17 138/82 08/13/17 21:20 132 H 17 149/90 93 L 08/13/17 20:17 158 H 17 175/81 08/13/17 19:43 97.0 F L 158 H 19 162/103 94 L Intake and Output 08/13/17 08/13/17 08/14/17 14:59 22:59 06:59 Other: Weight 72.575 kg Patient Weight 08/14/17 06:59 Weight 72.575 kg Constitutional: Patient mild distress due to shortness of breath and palpitations however able to talk full conversations Eyes: Anicteric sclerae, moist conjunctiva, no lid-lag Pupils equal round reactive to light ENMT: NC/AT Oropharynx clear, no erythema, exudates Neck: Supple, FROM, no masses, or JVD No carotid bruits No thyromegaly Lungs: There is fine inspiratory rales over bilateral lung basis otherwise no wheezes or prolonged expiratory phase, good breath sounds overall Clear to percussion No accessory muscle use Cardiovascular: Heart irregular and tachycardic No murmurs, gallops, or rubs No peripheral edema Abdominal: Soft Nontender, no guarding, rebound or rigidity Abdomen moving with respiration Normoactive bowel sounds No hepatomegaly, No splenomegaly No palpable mass No abdominal wall hernia noted Skin: Normal temperature, tone, texture, turgor No induration No subcutaneous nodules No rash, lesions No ulcers Extremities: No digital cyanosis No clubbing Pedal pulses intact and symmetrical Radial pulses intact and symmetrical No calf tenderness Psychiatric: Alert and oriented to person, place and time Patient looks anxious fair judgment Neuro Muscles Strength 5/5 in all 4 extremities Sensation to light touch grossly present throughout Cranial nerves II-XII grossly intact No focal sensory deficits Lymphatics: no palpable cervical or supraclavicular , or inguinal lymph nodes Results CBC & Chem 7: 08/13/17 20:06 08/13/17 20:06 Labs: Abnormal Lab Results - Last 24 Hours (Table) 08/13/17 08/13/17 08/13/17 Range/Units 20:06 20:06 20:06 RBC 4.19 L (4.30-5.90) m/uL Hgb 12.5 L D (13.0-17.5) gm/dL MCHC 30.9 L (31.0-37.0) g/dL RDW 17.8 H (11.5-15.5) % PT (9.0-12.0) sec INR (<1.2) Chloride 109 H (98-107) mmol/L Carbon Dioxide 21 L (22-30) mmol/L Glucose 173 H (74-99) mg/dL AST 63 H (17-59) U/L Alkaline Phosphatase 192 H (38-126) U/L CK-MB (CK-2) 2.6 H* (0.0-2.4) ng/mL Troponin I 0.036 H* (0.000-0.034) ng/mL 08/13/17 Range/Units 20:06 RBC (4.30-5.90) m/uL Hgb (13.0-17.5) gm/dL MCHC (31.0-37.0) g/dL RDW (11.5-15.5) % PT 12.1 H (9.0-12.0) sec INR 1.3 H (<1.2) Chloride (98-107) mmol/L Carbon Dioxide (22-30) mmol/L Glucose (74-99) mg/dL AST (17-59) U/L Alkaline Phosphatase (38-126) U/L CK-MB (CK-2) (0.0-2.4) ng/mL Troponin I (0.000-0.034) ng/mL Thrombosis Risk Factor Assmnt - Choose All That Apply Any of the Below Risk Factors Present?: Yes Each Factor Represents 1 point: Abnormal pulmonary function (COPD), Age 41-60 years Other Risk Factors: No Other congenital or acquired thrombophilia - If yes, enter type in comment: No Thrombosis Risk Factor Assessment Total Risk Factor Score: 2 Thrombosis Risk Factor Assessment Level: Low Risk Assessment and Plan (1) Atrial fibrillation with RVR Narrative/Plan: Paroxysmal A. fib blood thinner Currently with rapid ventricular response symptomatic shortness of breath, this could be in part component of autonomic response to alcohol withdrawal Attempt to control heartrate with Cardizem drip, otherwise vital signs are stable blood pressure is within normal limits Cardiology input is pending Continue home meds Current Visit: Yes Status: Acute Code(s): I48.91 - UNSPECIFIED ATRIAL FIBRILLATION SNOMED Code(s): 887617609731611 (2) CHF (congestive heart failure) Narrative/Plan: Systolic CHF with left ventricular ejection fraction of 3035% per most recent echo, nonischemic cardiomyopathy, mildly decompensated secondary to A. fib with RVR Continue home medications Was heart rate is controlled patient probably will benefit from gentle diuresis Continue supplemental oxygen a morphine when necessary Current Visit: Yes Status: Acute Code(s): I50.9 - HEART FAILURE, UNSPECIFIED SNOMED Code(s): 08571117 (3) Hypertension Narrative/Plan: Currently controlled continue home meds Current Visit: No Status: Acute Code(s): I10 - ESSENTIAL (PRIMARY) HYPERTENSION SNOMED Code(s): 63020224 (4) Hyperthyroidism Narrative/Plan: Check TSH with reflex free T4 Current Visit: No Status: Acute Code(s): E05.90 - THYROTOXICOSIS, UNSP WITHOUT THYROTOXIC CRISIS OR STORM SNOMED Code(s): 10618238 (5) COPD (chronic obstructive pulmonary disease) Narrative/Plan: Currently compensated continue with inhalers and DuoNeb's when necessary Current Visit: No Status: Chronic Code(s): J44.9 - CHRONIC OBSTRUCTIVE PULMONARY DISEASE, UNSPECIFIED SNOMED Code(s): 03013687 (6) HTN (hypertension) Narrative/Plan: Blood pressure currently controlled continue his home meds Current Visit: No Status: Chronic Code(s): I10 - ESSENTIAL (PRIMARY) HYPERTENSION SNOMED Code(s): 85624498 (7) DVT prophylaxis Narrative/Plan: Patient on blood thinners for A. fib Current Visit: Yes Status: Acute Code(s): OBF5834 - SNOMED Code(s): 529407178 (8) Anemia Narrative/Plan: This is mild, patient denies any melena or bloody bowel movement Check fecal occult blood Current Visit: Yes Status: Acute Code(s): D64.9 - ANEMIA, UNSPECIFIED SNOMED Code(s): 732500171 (9) Alcohol withdrawal Narrative/Plan: Start banana bag multivitamins and normal saline Benzos (Ativan )per CIWA Fall precautions Patient counseled to abstain from alcohol Current Visit: Yes Status: Acute Code(s): F10.239 - ALCOHOL DEPENDENCE WITH WITHDRAWAL, UNSPECIFIED SNOMED Code(s): 640832684 Plan: Preformed a thorough record review from recent hospitalization most recent hospitalization back in May 2017 as summarized in HPI Surrogate decision-maker: Court-appointed Kelsie patient comes in CODE STATUS:*Full code DVT prophylaxis: On blood thinners Discussed with: Patient, ER, RN Anticipated discharge: 48-[address]: Home A total of 50 minutes was spent on the care of this complex patient more than 50 % of the time was spent in counseling and care coordination.
[2017-08-14] MEDS ORDERED: Magnesium Replacement Protocol 1 EACH MISC MISCELLANE PRN (02:57)
[2017-08-14] MEDS: MAGNESIUM SULFATE-D5W PMX 1 GM in DEXTROSE/WATER 1 100ML.BAG IVPB SCH ×3 (03:19→05:42)
[2017-08-14] MEDS: DILTIAZEM 125 MG in SODIUM CHLORIDE 0.9% 100 ML IV ONE (04:33)
[2017-08-14] MEDS: BUDESONIDE 0.5 MG/2 ML NEBU INHALATION SCH ×2 (08:04→19:45)
[2017-08-14 08:31] LABS: Creatine Kinase MB 2.4 ng/mL (0.0-2.4)
[2017-08-14 08:37] LABS: Troponin I 0.066 ng/mL (0.000-0.034)
[2017-08-14] MEDS: AMIODARONE 200 MG TAB PO SCH (08:52)
[2017-08-14] MEDS: PARoxetine 20 MG TAB PO SCH (08:52)
[2017-08-14] MEDS: THIAMINE 100 MG TAB PO SCH ×2 (08:53→20:11)
[2017-08-14] MEDS: QUEtiapine 100 MG TAB PO SCH ×2 (08:57→20:11)
[2017-08-14] MEDS ORDERED: METOPROLOL TARTRATE 50 MG TAB PO SCH (09:00)
[2017-08-14] MEDS ORDERED: ASPIRIN 325 MG TAB PO SCH (09:00)
--- NOTE | 2017-08-14 10:50 | P.CRDCN ---
History of Present Illness Consult date: 08/14/17 Requesting physician: China Lujan Consult reason: atrial fibrillation Chief complaint: Shortness Of breath and heart racing History of present illness: This is a 52-year-old gentleman with history of EtOH abuse, paroxysmal atrial fibrillation, hypertension, COPD, hyperlipidemia, idiopathic cardiomyopathy, who follows with Dr. Quick in the office. He presented to the hospital with symptoms of shortness of breath with associated chest discomfort and heart racing. EKG on arrival here showed atrial fibrillation with a rapid ventricular response, chest x-ray revealed chronic pleural and pulmonary density in the right side consistent with inflammatory disease and scarring which appear to be significantly different than prior exam. Old multiple right- sided healed rib fractures noted as well. Blood pressure 132/80, heart rate in the 120s, 96.5 temperature, 90% on 2 L of oxygen. White blood cell count 7.5, hemoglobin 12.5, platelet count 164. Sodium 141, potassium 4.1, BUN 15, creatinine 0.8. Magnesium level I.3. AST 63, ALT 59, alk phos 192. Troponins 0.036, 0.063, 0.066. BNP level 3620. Patient does take Xarelto for anticoagulation, this has been resumed here. He is also on amiodarone 200 mg daily, metoprolol 50 mg twice a day, and was initiated on a Cardizem drip which she continues to be on a 10 mg per hour. At the time of my examination this morning, patient is very sleepy, very difficult to wake him. He denies any chest pain at present, he is lying flat in bed, no evident shortness of breath. Past Medical History Past Medical History: Atrial Fibrillation, Atrial Flutter, Cancer, Chest Pain / Angina, Heart Failure, COPD, Hyperlipidemia, Hypertension, Myocardial Infarction (MD), Pneumonia, Pulmonary Embolus (PE), Syncope, Thyroid Disorder Additional Past Medical History / Comment(s): Other hx: Paroxysmal A flutter, CHF, cardiomyopathy with an ejection fraction of 40%, Graves disease, tremors, pulmonary embolism 04/22/2016, squamous cell skin cancer with removal. Last Myocardial Infarction Date:: October 2016 History of Any Multi-Drug Resistant Organisms: MRSA Date of last positivie culture/infection: 05/24/17 MDRO Source:: bronch/sputum Past Surgical History: Adenoidectomy, Cholecystectomy, Tonsillectomy Additional Past Surgical History / Comment(s): RT HAND SX (TENDON REPAIR).RT THIGH SKIN LESION EXCISION(SQUAMOUS CELL CARCINOMA), functional endoscopic sinus surgery/septoplasty/reduction of inferior turbinates. Past Anesthesia/Blood Transfusion Reactions: No Reported Reaction Past Psychological History: Anxiety Additional Psychological History / Comment(s): Pt resides with his brother. He is independent. Smoking Status: Former smoker Past Alcohol Use History: Heavy Additional Past Alcohol Use History / Comment(s): Patient states that he drinks on the weekends only; about 6 drink per sitting. Past Drug Use History: None Reported - Past Family History Mother Family Medical History: Cancer, Congestive Heart Failure (CHF), Coronary Artery Disease (CAD), CVA/TIA Additional Family Medical History / Comment(s): Mother had throat cancer and of this at the age of 68yrs. Father Additional Family Medical History / Comment(s): IN [place] WHEN PT WAS 1 YEARS OLD. Medications and Allergies Home Medications Medication Instructions Recorded Confirmed Type Amiodarone HCl [Pacerone] 200 mg PO DAILY 07/23/17 08/13/17 History Budesonide [Pulmicort] 0.5 mg INHALATION RT-BID 07/23/17 08/13/17 History Famotidine [Pepcid] 20 mg PO DAILY 07/23/17 08/13/17 History Ipratropium-Albuterol Nebulize 3 ml INHALATION RT-Q4H PRN 07/23/17 08/13/17 History [Duoneb 0.5 mg-3 mg/3 ml Soln] Metoprolol Tartrate [Lopressor] 50 mg PO BID 07/23/17 08/13/17 History PARoxetine HCL [Paxil] 40 mg PO DAILY 07/23/17 08/13/17 History Primidone [Mysoline] 75 mg PO HS 07/23/17 08/13/17 History QUEtiapine [SEROquel] 100 mg PO BID 07/23/17 08/13/17 History Rivaroxaban [Xarelto] 20 mg PO HS 07/23/17 08/13/17 History Thiamine [Vitamin B-1] 100 mg PO BID 07/23/17 08/13/17 History Allergies Allergy/AdvReac Type Severity Reaction Status Date / Time warfarin [From Coumadin] AdvReac MAKES Verified 08/13/17 20:40 BLOOD TOO THIN Physical Exam Vitals: Vital Signs Temp Pulse Pulse Resp BP BP Pulse Ox 08/14/17 08:24 124 H 08/14/17 08:04 122 H 08/14/17 07:55 151 H 08/14/17 07:53 96.5 F L 131 H 22 132/87 90 L 08/14/17 04:00 97.6 F 112 H 20 135/89 93 L 08/14/17 02:33 93 L 08/14/17 01:10 136 H 08/14/17 01:00 136 H 08/14/17 00:00 97.2 F L 136 H 20 140/91 93 L 08/13/17 22:15 97.0 F L 141 H 22 156/88 95 08/13/17 21:55 124 H 17 138/82 08/13/17 21:20 132 H 17 149/90 93 L 08/13/17 20:17 158 H 17 175/81 08/13/17 19:43 97.0 F L 158 H 19 162/103 94 L Intake and Output 08/13/17 08/14/17 08/14/17 22:59 06:59 14:59 Intake Total 99.417 Output Total 175 Balance -75.583 Intake: Intake, IV Titration 99.417 Amount Diltiazem 125 mg In 99.417 Sodium Chloride 0.9% 100 ml @ 10 MG/HR 10 mls/hr IV .[id number] ONE Rx#: [id number] Oral 0 Output: Urine 175 Other: Voiding Method Urinal Urinal # Voids 1 Weight 72.575 kg 74.1 kg PHYSICAL EXAMINATION: HEENT: Head is atraumatic, normocephalic. Pupils equal, round. Neck is supple. There is elevated jugular venous pressure. HEART EXAMINATION: Heart S1 and S2 irregularly irregular CHEST EXAMINATION: Lungs reveal fine rales to bilateral bases ABDOMEN: Soft, nontender. Bowel sounds are heard. No organomegaly noted. EXTREMITIES: 2+ peripheral pulses with no evidence of peripheral edema and no calf tenderness noted. NEUROLOGIC [patient is sleepy Results 08/13/17 20:06 08/13/17 20:06 Cardiac Enzymes 08/13/17 08/13/17 08/14/17 Range/Units 20:06 20:06 01:45 AST 63 H (17-59) U/L CK-MB (CK-2) 2.6 H* 2.4 (0.0-2.4) ng/mL Troponin I 0.036 H* 0.063 H* (0.000-0.034) ng/mL 08/14/17 Range/Units 07:41 AST (17-59) U/L CK-MB (CK-2) 2.4 (0.0-2.4) ng/mL Troponin I 0.066 H* (0.000-0.034) ng/mL Coagulation 08/13/17 Range/Units 20:06 PT 12.1 H (9.0-12.0) sec APTT 28.5 (22.0-30.0) sec Lipids 08/14/17 Range/Units 01:45 Triglycerides 50 (<150) mg/dL Cholesterol 210 H (<200) mg/dL HDL Cholesterol 168 H (40-60) mg/dL CBC 08/13/17 Range/Units 20:06 WBC 7.5 (3.8-10.6) k/uL RBC 4.19 L (4.30-5.90) m/uL Hgb 12.5 L D (13.0-17.5) gm/dL Hct 40.6 (39.0-53.0) % Plt Count 164 (150-450) k/uL Comprehensive Metabolic Panel 08/13/17 Range/Units 20:06 Sodium 141 (137-145) mmol/L Potassium 4.1 (3.5-5.1) mmol/L Chloride 109 H (98-107) mmol/L Carbon Dioxide 21 L (22-30) mmol/L BUN 15 (9-20) mg/dL Creatinine 0.80 (0.66-1.25) mg/dL Glucose 173 H (74-99) mg/dL Calcium 9.1 (8.4-10.2) mg/dL AST 63 H (17-59) U/L ALT 59 (21-72) U/L Alkaline Phosphatase 192 H (38-126) U/L Total Protein 7.4 (6.3-8.2) g/dL Albumin 3.8 (3.5-5.0) g/dL Current Medications Generic Name Dose Route Start Last Admin Trade Name Freq PRN Reason Stop Dose Admin Albuterol/Ipratropium 3 ml 08/13/17 21:31 08/14/17 08:03 Duoneb 0.5 Mg-3 Mg/3 Ml Soln INHALATION 3 ml RT-Q4H PRN Administration Shortness Of Breath Amiodarone HCl 200 mg 08/14/17 09:00 08/14/17 08:52 Cordarone PO 200 mg DAILY RENZO Administration Aspirin 325 mg 08/14/17 09:00 Aspirin PO DAILY RENZO Budesonide 0.5 mg 08/14/17 08:00 08/14/17 08:04 Pulmicort INHALATION 0.5 mg RT-BID RENZO Administration Famotidine 20 mg 08/14/17 09:00 Pepcid PO DAILY [facility] Parenteral Vitamin Supplement 1,011.2 mls @ 100 mls/hr 08/14/17 01:02 01:33 10 ml/ Thiamine HCl 100 mg/ IV 08/14/17 11:08 100 mls/hr Folic Acid 1 mg/ Sodium .Q10H7M ONE Administration Chloride Lorazepam 1 mg 08/14/17 00:54 08/14/17 03:27 Ativan IV 1 mg Q2HR PRN Administration CIWA 8 or 9 Lorazepam 1 mg 08/14/17 00:54 08/14/17 08:04 Ativan IV 1 mg Q1HR PRN Administration CIWA 10 to 15 Lorazepam 2 mg 08/14/17 00:54 Ativan IV 08/16/17 00:54 Q10M PRN CIWA 16 or higher Metoprolol Tartrate 50 mg 08/14/17 09:00 08/14/17 08:53 Lopressor PO 50 mg BID RENZO Administration Miscellaneous Information 1 each 08/14/17 02:57 Magnesium Per Protocol MISCELLANE DAILY PRN Per Protocol Protocol Morphine Sulfate 4 mg 08/13/17 21:27 08/13/17 22:40 Morphine Sulfate (Inj) IV 4 mg Q5M PRN Administration Chest Pain Naloxone HCl 0.2 mg 08/14/17 02:33 Narcan IV Q2M PRN Opioid Reversal Nitroglycerin 0.4 mg 08/13/17 21:27 Nitrostat SUBLINGUAL Q5M PRN Chest Pain Paroxetine HCl 40 mg 08/14/17 09:00 08/14/17 08:52 Paxil PO 40 mg DAILY RENZO Administration Primidone 75 mg 08/14/17 21:00 Mysoline PO HS RENZO Quetiapine Fumarate 100 mg 08/14/17 09:00 08/14/17 08:57 Seroquel PO 100 mg BID RENZO Administration Rivaroxaban 20 mg 08/14/17 21:00 Xarelto PO HS RENZO Thiamine HCl 100 mg 08/14/17 09:00 08/14/17 08:53 Vitamin B-1 PO 100 mg BID RENZO Administration Intake and Output 08/13/17 08/14/17 08/14/17 22:59 06:59 14:59 Intake Total 99.417 Output Total 175 Balance -75.583 Intake: Intake, IV Titration 99.417 Amount Diltiazem 125 mg In 99.417 Sodium Chloride 0.9% 100 ml @ 10 MG/HR 10 mls/hr IV .[id number] ONE Rx#: [id number] Oral 0 Output: Urine 175 Other: Voiding Method Urinal Urinal # Voids 1 Weight 72.575 kg 74.1 kg 08/13/17 20:06 08/13/17 20:06 EKG Interpretations (text) EKG shows atrial fibrillation with a rapid ventricular response Assessment and Plan Plan: Assessment and plan #1 atrial fibrillation with rapid ventricular response, paroxysmal, on Xarelto for anticoagulation #2 EtOH abuse #3 hypertension #4 idiopathic cardiomyopathy #5 hyperthyroidism Plan We will repeat an echocardiogram with Doppler study. We will also check a free T4 and TSH level. Patient has been advised strongly regarding the importance of EtOH cessation. We will discontinue the IV Cardizem, discontinue aspirin, replace magnesium, increase dose of beta autumn. Further recommendations to follow. DNP note has been reviewed, I agree with a documented findings and plan of care. Patient was seen and examined.
[2017-08-14] MEDS ORDERED: METOPROLOL TARTRATE 50 MG TAB PO ONE (11:00)
[2017-08-14] MEDS: FAMOTIDINE 20 MG TAB PO SCH (11:15)
[2017-08-14] MEDS ORDERED: ASPIRIN 81 MG PO STA (14:47)
--- NOTE | 2017-08-14 14:50 | P.PN ---
Subjective Progress Note Date: 08/14/17 The patient is unknown chronic alcoholic and has a history of nonischemic cardiomyopathy secondary to alcohol use. Patient is pretty somnolent today barely arousable but answering questions when prompted. No acute events overnight Objective - Vital Signs Vital signs: Vital Signs Temp 96.9 F L 08/14/17 11:43 Pulse 75 08/14/17 11:43 Resp 18 08/14/17 11:43 BP 95/66 08/14/17 11:43 Pulse Ox 92 L 08/14/17 11:43 Intake & Output 08/13/17 08/14/17 08/14/17 18:59 06:59 18:59 Intake Total 99.417 Output Total 175 Balance -75.583 Weight 74.1 kg Intake: Intake, IV Titration 99.417 Amount Diltiazem 125 mg In 99.417 Sodium Chloride 0.9% 100 ml @ 10 MG/HR 10 mls/hr IV .[id number] ONE Rx#: [id number] Oral 0 Output: Urine 175 Other: Voiding Method Urinal # Voids 1 - Exam Constitutional: No acute distress, conversant, pleasant Eyes: Anicteric sclerae, moist conjunctiva, no lid-lag, PERRLA ENMT: NC/AT,Oropharynx clear, no erythema, exudates Neck:Supple, FROM, no masses, or JVD, No carotid bruits; No thyromegaly Lungs: Clear to auscultation, Clear to percussion, Normal respiratory effort, no accessory muscle use Cardiovascular: Irregularly irregular tachycardic, No murmurs, gallops, or rubs no peripheral edema Abdominal: Soft Nontender, nom distended, no guarding, no rebound or rigidity, Normoactive bowel sounds No hepatomegaly, No splenomegaly, No palpable mass No abdominal wall hernia noted Skin: Normal temperature, tone, texture, turgor, No induration No subcutaneous nodules, No rash, lesions, No ulcers Extremities:No digital cyanosis No clubbing, Pedal pulses intact and symmetrical Radial pulses intact and symmetrical Normal gait and station, No calf tenderness Neuro: Extremely somnolent and barely arousable but does answer questions appropriately as speech slurred, place and time, Appropriate affect Intact judgement - Labs CBC & Chem 7: 08/13/17 20:06 03/02/18 20:06 Labs: Abnormal Lab Results - Last 24 Hours (Table) 08/13/17 08/13/17 08/13/17 Range/Units 20:06 20:06 20:06 RBC 4.19 L (4.30-5.90) m/uL Hgb 12.5 L D (13.0-17.5) gm/dL MCHC 30.9 L (31.0-37.0) g/dL RDW 17.8 H (11.5-15.5) % PT (9.0-12.0) sec INR (<1.2) Chloride 109 H (98-107) mmol/L Carbon Dioxide 21 L (22-30) mmol/L Glucose 173 H (74-99) mg/dL Magnesium (1.6-2.3) mg/dL AST 63 H (17-59) U/L Alkaline Phosphatase 192 H (38-126) U/L CK-MB (CK-2) 2.6 H* (0.0-2.4) ng/mL Troponin I 0.036 H* (0.000-0.034) ng/mL Cholesterol (<200) mg/dL HDL Cholesterol (40-60) mg/dL 08/13/17 08/14/17 08/14/17 Range/Units 20:06 01:45 01:45 RBC (4.30-5.90) m/uL Hgb (13.0-17.5) gm/dL MCHC (31.0-37.0) g/dL RDW (11.5-15.5) % PT 12.1 H (9.0-12.0) sec INR 1.3 H (<1.2) Chloride (98-107) mmol/L Carbon Dioxide (22-30) mmol/L Glucose (74-99) mg/dL Magnesium 1.3 L (1.6-2.3) mg/dL AST (17-59) U/L Alkaline Phosphatase (38-126) U/L CK-MB (CK-2) (0.0-2.4) ng/mL Troponin I 0.063 H* (0.000-0.034) ng/mL Cholesterol 210 H (<200) mg/dL HDL Cholesterol 168 H (40-60) mg/dL 08/14/17 Range/Units 07:41 RBC (4.30-5.90) m/uL Hgb (13.0-17.5) gm/dL MCHC (31.0-37.0) g/dL RDW (11.5-15.5) % PT (9.0-12.0) sec INR (<1.2) Chloride (98-107) mmol/L Carbon Dioxide (22-30) mmol/L Glucose (74-99) mg/dL Magnesium (1.6-2.3) mg/dL AST (17-59) U/L Alkaline Phosphatase (38-126) U/L CK-MB (CK-2) (0.0-2.4) ng/mL Troponin I 0.066 H* (0.000-0.034) ng/mL Cholesterol (<200) mg/dL HDL Cholesterol (40-60) mg/dL Assessment and Plan (1) Encephalopathy Narrative/Plan: * Patient extremely somnolent this morning, barely arousable, speech slurred * Concern for an acute CVA in the setting of A. fib with RVR we'll order MRI to rule out an acute CVA, will order aspirin patient currently on Xarelto for anticoagulation vs drug-induced encephalopathy from Ativan/morphine Current Visit: Yes Status: Acute Code(s): G93.40 - ENCEPHALOPATHY, UNSPECIFIED SNOMED Code(s): 48009900 (2) Atrial fibrillation with RVR Narrative/Plan: * Patient weaned off Cardizem drip, and his beta autumn dosage is been titrated up by cardiology * Echocardiogram pending * Continue with amiodarone, metoprolol and Xarelto for anticoagulation Current Visit: Yes Status: Acute Code(s): I48.91 - UNSPECIFIED ATRIAL FIBRILLATION SNOMED Code(s): 138363708573542 (3) CHF (congestive heart failure) Narrative/Plan: * Systolic CHF with left ventricular ejection fraction of 3035% per most recent echo, nonischemic cardiomyopathy, mildly decompensated secondary to A. fib with RVR * Continue home medications Current Visit: Yes Status: Chronic Code(s): I50.9 - HEART FAILURE, UNSPECIFIED SNOMED Code(s): 61743099 (4) Elevated troponin Narrative/Plan: * Likely secondary to A. fib with RVR * Cardiology following Current Visit: Yes Status: Acute Code(s): R74.8 - ABNORMAL LEVELS OF OTHER SERUM ENZYMES SNOMED Code(s): 013442422
[2017-08-14] MEDS ORDERED: THIAMINE 100 MG TAB PO SCH (17:00)
--- NOTE | 2017-08-14 18:37 | CT ---
EXAMINATION TYPE: CT brain wo con DATE OF EXAM: 08/14/2017 COMPARISON: NONE INDICATION: Altered mental status. DLP: 1115 mGycm, Automated exposure control for dose reduction was used. CONTRAST: None CT of the brain is performed utilizing 3 mm thick sections through the posterior fossa and 3 mm thick sections through the remaining calvarium. Study is performed within 24 hours of arrival to the hosp ital. No abnormal hyperdensity is present to suggest an acute intracranial hemorrhage. No mass lesion is evident. No acute infarcts are evident. Ventricles and sulci are appropriate for the patient age. Paranasal sinuses and mastoid air cells within the [id number] are clear. IMPRESSIONS: 1. No acute intracranial process.
[2017-08-14] MEDS: METOPROLOL TARTRATE 50 MG TAB PO SCH (20:11)
[2017-08-14] MEDS ORDERED: RIVAROXABAN 20 MG TAB PO SCH (21:00)
[2017-08-14] MEDS ORDERED: PRIMIDONE 25 MG TAB PO SCH (21:00)
[2017-08-15] MEDS: LORazepam 2 MG/ML INJ IV PRN (00:04)
[2017-08-15] MEDS: IPRATROPIUM-ALBUTEROL 3 ML NEB INHALATION PRN ×3 (01:56→15:35)
[2017-08-15] MEDS: METOPROLOL TARTRATE 50 MG TAB PO SCH (07:42)
[2017-08-15] MEDS: AMIODARONE 200 MG TAB PO SCH (07:42)
[2017-08-15] MEDS: QUEtiapine 100 MG TAB PO SCH (07:42)
[2017-08-15] MEDS: FAMOTIDINE 20 MG TAB PO SCH (07:42)
[2017-08-15] MEDS: PARoxetine 20 MG TAB PO SCH (07:43)
[2017-08-15] MEDS: THIAMINE 100 MG TAB PO SCH (07:43)
[2017-08-15] MEDS: BUDESONIDE 0.5 MG/2 ML NEBU INHALATION SCH (08:12)
--- NOTE | 2017-08-15 12:35 | P.PN ---
Subjective This is a 52-year-old gentleman with history of EtOH abuse, paroxysmal atrial fibrillation, hypertension, COPD, hyperlipidemia, idiopathic cardiomyopathy, who follows with Dr. Quick in the office. He presented to the hospital with symptoms of shortness of breath with associated chest discomfort and heart racing. EKG on arrival here showed atrial fibrillation with a rapid ventricular response, chest x-ray revealed chronic pleural and pulmonary density in the right side consistent with inflammatory disease and scarring which appear to be significantly different than prior exam. Old multiple right- sided healed rib fractures noted as well. Blood pressure 132/80, heart rate in the 120s, 96.5 temperature, 90% on 2 L of oxygen. White blood cell count 7.5, hemoglobin 12.5, platelet count 164. Sodium 141, potassium 4.1, BUN 15, creatinine 0.8. Magnesium level I.3. AST 63, ALT 59, alk phos 192. Troponins 0.036, 0.063, 0.066. BNP level 3620. Patient does take Xarelto for anticoagulation, this has been resumed here. He is also on amiodarone 200 mg daily, metoprolol 50 mg twice a day, and was initiated on a Cardizem drip which she continues to be on a 10 mg per hour. At the time of my examination this morning, patient is very sleepy, very difficult to wake him. He denies any chest pain at present, he is lying flat in bed, no evident shortness of breath. 08/15/2017 Patient was seen and examined this morning, in normal sinus rhythm with a heart rate in the high 60s to low 70s. Pressure is stable. Objective - Vital Signs Vital signs: Vital Signs Temp 97.6 F 08/15/17 11:53 Pulse 70 08/15/17 11:53 Resp 16 08/15/17 11:53 BP 118/76 08/15/17 11:53 Pulse Ox 91 L 08/15/17 11:53 Intake & Output 08/14/17 08/15/17 08/15/17 18:59 06:59 18:59 Intake Total 920 10 240 Output Total 1200 Balance 920 -1190 240 Weight 77.5 kg Intake: IV 10 0.9 10 Intake, IV Titration 800 Amount Sodium Chloride 0.9% 1, 800 000 ml @ 100 mls/hr IV . Q10H7M ONE with Mvi, Adult No.4 with Vit K 10 ml with Thiamine 100 mg with Folic Acid 1 mg Rx#: [id number] Oral 120 240 Output: Urine 1200 Other: Voiding Method Urinal # Voids 1 3 - Exam PHYSICAL EXAMINATION: HEENT: Head is atraumatic, normocephalic. Pupils equal, round. Neck is supple. There is no elevated jugular venous pressure. HEART EXAMINATION: Heart S1, S2 normal. No murmur or gallop heard. CHEST EXAMINATION: Lungs are clear to auscultation and precussion. No chest wall tenderness is noted on palpation or with deep breathing. ABDOMEN: Soft, nontender. Bowel sounds are heard. No organomegaly noted. EXTREMITIES: 2+ peripheral pulses with no evidence of peripheral edema and no calf tenderness noted. NEUROLOGIC patient is awake, alert and oriented -3. . - Labs CBC & Chem 7: 08/13/17 20:06 18 20:06 Assessment and Plan Plan: Assessment and plan #1 atrial fibrillation with rapid ventricular response, paroxysmal, on Xarelto for anticoagulation #2 EtOH abuse #3 hypertension #4 idiopathic cardiomyopathy #5 hyperthyroidism Plan TSH is normal. Patient is currently in normal sinus rhythm with a heart rate in the 60s to 70s. We will recommend to continue the patient on his current medications. He may be able to be discharged home from our perspective. Follow -up appointment in a couple weeks. DNP note has been reviewed, I agree with a documented findings and plan of care. Patient was seen and examined.
[2017-08-15 16:40] VITALS: BP 123/77; PULSE 75; RESP 18; TEMP 96
--- NOTE | 2017-08-15 16:44 | P.DS ---
Providers Date of admission: 08/13/17 21:27 Expected date of discharge: 08/15/17 Attending physician: China Lujan MD Consults: 08/13/17 21:27 Consult Physician Urgent Consulting Provider: Dariel Quick Consult Reason/Comments: Atrial fibrillation with RVR, elevated troponin and dyspnea Do you want consulting provider notified?: Yes Primary care physician: Mónica Acosta - Discharge Diagnosis(es) (1) Encephalopathy Current Visit: Yes Status: Acute (2) Atrial fibrillation with RVR Current Visit: Yes Status: Resolved (3) CHF (congestive heart failure) Current Visit: Yes Status: Chronic (4) Elevated troponin Current Visit: Yes Status: Acute (5) Chronic alcohol dependence, continuous Current Visit: Yes Status: Acute (6) Hypomagnesemia Current Visit: Yes Status: Acute Hospital Course: The patient is a 52-year-old male the past with a history of chronic alcohol use with a history of paroxysmal atrial fibrillation, nonischemic cardiomyopathy secondary to chronic alcoholism who presented to the ER with shortness of breath and palpitations he was found to be in A. fib with RVR, he was really started on a Cardizem drip and continued on anticoagulation with Xarelto. The patient was seen by cardiology and he was switched from Cardizem drip to the oral metoprolol 100 mg by mouth twice a day for rate control, he was continued on his home dosage of amiodarone. 2-D echocardiogram from his previous hospitalization in May 2017 was consistent with a compression fraction of 20-25% consistent with nonischemic cardiomyopathy attributed to his underlying chronic alcoholism. The patient was also noted to be hypomagnesemic this was replaced and he eventually converted to normal sinus rhythm, the patient was noted to be increasingly somnolent and difficult to arouse earlier this hospitalization and there is concern for underlying CVA, CT of his head was negative for any acute intracranial pathology and patient's encephalopathy was attributed to Ativan, the patient was noted to have elevated troponins and this was attributed to his A. fib with RVR per cardiology. Patient did not go through any alcohol withdrawal ordered DTs and was subsequently discharged home in stable condition on increased dosage of metoprolol at 100 mg by mouth twice a day This discharge process took approximately 35 minutes. Constitutional: No acute distress, conversant, pleasant Eyes: Anicteric sclerae, moist conjunctiva, no lid-lag, PERRLA ENMT: NC/AT,Oropharynx clear, no erythema, exudates Neck:Supple, FROM, no masses, or JVD, No carotid bruits; No thyromegaly Lungs: Clear to auscultation, Clear to percussion, Normal respiratory effort, no accessory muscle use Cardiovascular: Heart regular in rate and rhythm, No murmurs, gallops, or rubs no peripheral edema Abdominal: Soft Nontender, nom distended, no guarding, no rebound or rigidity, Normoactive bowel sounds No hepatomegaly, No splenomegaly, No palpable mass No abdominal wall hernia noted Skin: Normal temperature, tone, texture, turgor, No induration No subcutaneous nodules, No rash, lesions, No ulcers Extremities:No digital cyanosis No clubbing, Pedal pulses intact and symmetrical Radial pulses intact and symmetrical Normal gait and station, No calf tenderness Psychiatric: Alert and oriented to person, place and time, Appropriate affect Intact judgement Neuro: Muscles Strength 5/5 in all 4 extremities, Sensation to light touch grossly present throughout, Cranial nerves II-XII grossly intact. No focal sensory deficits Patient Condition at Discharge: Fair Plan - Discharge Summary Discharge Rx Participant: No New Discharge Prescriptions: New Metoprolol Tartrate [Lopressor] 100 mg PO BID #60 tab Continue Rivaroxaban [Xarelto] 20 mg PO HS Thiamine [Vitamin B-1] 100 mg PO BID QUEtiapine [SEROquel] 100 mg PO BID Primidone [Mysoline] 75 mg PO HS PARoxetine HCL [Paxil] 40 mg PO DAILY Amiodarone HCl [Pacerone] 200 mg PO DAILY Ipratropium-Albuterol Nebulize [Duoneb 0.5 mg-3 mg/3 ml Soln] 3 ml INHALATION RT-Q4H PRN PRN Reason: Shortness Of Breath Famotidine [Pepcid] 20 mg PO DAILY Budesonide [Pulmicort] 0.5 mg INHALATION RT-BID Discontinued Metoprolol Tartrate [Lopressor] 50 mg PO BID Discharge Medication List Amiodarone HCl [Pacerone] 200 mg PO DAILY 07/23/17 [History] Budesonide [Pulmicort] 0.5 mg INHALATION RT-BID 07/23/17 [History] Famotidine [Pepcid] 20 mg PO DAILY 07/23/17 [History] Ipratropium-Albuterol Nebulize [Duoneb 0.5 mg-3 mg/3 ml Soln] 3 ml INHALATION RT -Q4H PRN 07/23/17 [History] PARoxetine HCL [Paxil] 40 mg PO DAILY 07/23/17 [History] Primidone [Mysoline] 75 mg PO HS 07/23/17 [History] QUEtiapine [SEROquel] 100 mg PO BID 07/23/17 [History] Rivaroxaban [Xarelto] 20 mg PO HS 07/23/17 [History] Thiamine [Vitamin B-1] 100 mg PO BID 07/23/17 [History] Metoprolol Tartrate [Lopressor] 100 mg PO BID #60 tab 08/15/17 [Rx] Follow up Appointment(s)/Referral(s): Mónica Acosta MD [Primary Care Provider] - 1-2 days (Office closed. Please call and make appointment) Patient Instructions/Handouts: Alcohol Withdrawal (DC) Discharge Disposition: HOME SELF-CARE
== END 2017-08-15 17:23 | disposition home or self-care (01) | DRG 308 ==
LOC: EC 19:42 → 6SEL 21:27
PROVIDERS: ADMIT Internal Medicine; ATTEND Internal Medicine
DX: I48.0 Paroxysmal atrial fibrillation (principal); G92 Toxic encephalopathy; I50.23 Acute on chronic systolic (congestive) heart failure; E83.42 Hypomagnesemia; I42.6 Alcoholic cardiomyopathy; I11.0 Hypertensive heart disease with heart failure; D64.9 Anemia, unspecified; E05.90 Thyrotoxicosis, unspecified without thyrotoxic crisis or storm; E78.5 Hyperlipidemia, unspecified; F41.9 Anxiety disorder, unspecified; I25.2 Old myocardial infarction; I44.30 Unspecified atrioventricular block; J44.9 Chronic obstructive pulmonary disease, unspecified; Z79.01 Long term (current) use of anticoagulants; Z79.899 Other long term (current) drug therapy; Z80.8 Family history of malignant neoplasm of other organs or systems; Z82.49 Family history of ischemic heart disease and other diseases of the circulatory system; Z85.828 Personal history of other malignant neoplasm of skin; Z86.711 Personal history of pulmonary embolism; Z87.891 Personal history of nicotine dependence; F10.20 Alcohol dependence, uncomplicated; T42.4X5A Adverse effect of benzodiazepines, initial encounter; R74.8 Abnormal levels of other serum enzymes
CPT/HCPCS: 36415; 70450; 71046; 80053; 80061; 80320; 82550; 82553; 83735; 83880; 84100; 84443; 84484; 85025; 85610; 85730; 93005; 94640; 96365; 96366; 96375; 96376; 99291

== ENCOUNTER → 2017-12-17 | Outpatient (CLI) | payer OTHER ==
[2017-12-17 13:11] LABS: Anisocytosis Slight; HGB 14.5 gm/dL (13.0-17.5); MCH 28.3 pg (25.0-35.0); MCHC 31.6 g/dL (31.0-37.0); MCV 89.5 fL (80.0-100.0); Mean Platelet Volume 6.3; Platelet Count 125 k/uL (150-450); RBC 5.13 m/uL (4.30-5.90); RDW 16.1 % (11.5-15.5); WBC 3.8 k/uL (3.8-10.6)
[2017-12-17 13:29] LABS: Calcium 9.6 mg/dL (8.4-10.2)
[2017-12-17 13:33] LABS: Potassium 4.8 mmol/L (3.5-5.1)
== END | disposition home or self-care (01) ==
LOC: LABWHC1 12:43
PROVIDERS: ATTEND Internal Medicine Clinical Cardiac Electrophysiology
DX: I48.1 Persistent atrial fibrillation (principal); I42.0 Dilated cardiomyopathy; I50.22 Chronic systolic (congestive) heart failure
CPT/HCPCS: 36415; 80048; 85027

== ENCOUNTER 2017-12-23 09:34 | Day surgery (SDC) | payer OTHER ==
[2017-12-17 15:40] VITALS: BMI 29.2
[2017-12-23] MEDS ORDERED: SODIUM CHLORIDE 0.9% 1,000 ML IV ONE (10:12)
[2017-12-23] MEDS ORDERED: LIDOCAINE 1% INJ 10MG/ML (20 ML MDV) ONE ×2 (10:34→10:38)
[2017-12-23] MEDS ORDERED: HEPARIN SODIUM 1,000 UN/ML (10ML VL) ONE (10:34)
[2017-12-23] MEDS ORDERED: NEOSTIGMINE 1 MG/ML 10 ML VIAL ONE (10:38)
[2017-12-23] MEDS ORDERED: GLYCOPYRROLATE 0.2 MG/ML 2 ML VIAL ONE (10:38)
[2017-12-23] MEDS ORDERED: fentaNYL (PF) 50 MCG/ML 2 ML AMP ONE (10:38)
[2017-12-23] MEDS ORDERED: ISOPROTERENOL 250 MCG/1.25 ML SYR IV ONE (10:38)
[2017-12-23] MEDS ORDERED: ROCURONIUM BROMIDE 10 MG/ML 10 ML VIAL IV ONE (10:38)
[2017-12-23] MEDS ORDERED: SUCCINYLCHOLINE CHLORIDE 100 MG/5 ML SYR IV ONE (10:38)
[2017-12-23] MEDS ORDERED: ePHEDrine SULFATE/0.9% NACL/PF 50 MG/5 ML SYRINGE IV ONE (10:38)
[2017-12-23] MEDS ORDERED: PHENYLEPHRINE-0.9% NACL SYG 1 MG/10 ML SYRINGE ONE (10:38)
[2017-12-23] MEDS ORDERED: MIDAZOLAM 2 MG/2 ML VIAL ONE (10:38)
[2017-12-23] MEDS ORDERED: PROPOFOL 10 MG/ML 20 ML VIAL IV ONE (10:38)
[2017-12-23] MEDS ORDERED: HEPARIN SODIUM (1,000 UNIT/ML) 1,000 UNIT in SODIUM CHLORIDE 0.9% 1,000 ML IRRIGATION ONE (11:21)
[2017-12-23] MEDS ORDERED: LIDOCAINE 1% INJ 10MG/ML (20 ML MDV) SQ ONE (11:21)
[2017-12-23] MEDS ORDERED: ACETAMINOPHEN TAB 325 MG TAB PO PRN (13:14)
--- NOTE | 2017-12-23 13:48 | CE ---
CARDIAC ELECTROPHYSIOLOGY REPORT Mr. Law is a 48-year-old, male, 52-year-old male patient who has atrial fibrillation refractory to medical treatment. He also has atrial flutter with RVR refractory to medical treatment. He was brought in for atrial flutter ablation. He was referred by Dr. Quick. Patient brought to the EP lab in a fasting state. Written informed consent was obtained prior to the procedure. The procedure was performed under general anesthesia. The venous sheaths were placed in the right and left femoral veins, and via these diagnostic and mapping ablation, intracardiac ultrasound catheters were placed. The sinus cycle length was 1187 milliseconds, ND interval 163 milliseconds, QRS 116 milliseconds, QT 523 milliseconds. The AH interval was 65 milliseconds, HV interval 48 milliseconds. Sinus node recovery at 600, 500 and 400 milliseconds were 1589, 1597 and 1580 milliseconds. The corresponding corrected sinus node recovery times were within normal limits. AV node Wenckebach block of 450 milliseconds, VA Wenckebach block greater than 700 milliseconds. On Isuprel, VA Wenckebach block improved to 520 milliseconds and AV node Wenckebach block improved to 340 milliseconds, atrial extra stimulation was performed. Atrial fibrillation was not induced. Intracardiac ultrasound was performed. There was no pericardial effusion. LV function was near normal. The right atrial caval tricuspid isthmus was mapped, an anatomic shell was created, electro anatomic mapping was performed. RF ablation was performed. An RF line of block was made from the tricuspid anulus to the IVC. This line was completed and with pacing maneuvers, widely split potentials of greater than 125-130 milliseconds were noted all along the line. The isthmus conduction time was greater than 165 milliseconds in either direction. Following that, all catheters were removed and patient was transferred back to telemetry after extubation. RESULT: 1. Diagnostic EP study revealing sinus node recovery times at the upper limits of normal. 2. No evidence for dual AV cathy physiology. No accessory pathway conduction and successful mapping and ablation for atrial flutter. PLAN: Patient will be scheduled for atrial fib ablation with pulmonary vein isolation and cryoablation since he has recurrent episodes of atrial fibrillation and is refractory to amiodarone. He will continue anticoagulation lifelong. MMODL / IJN: [id number] /
[2017-12-23] MEDS ORDERED: ACETAMINOPHEN IV (For NPO) 1,000 MG in EMPTY BAG 1 BAG IVPB ONE (17:00)
[2017-12-23] MEDS: LACTATED RINGERS 1,000 ML IV SCH (17:50)
[2017-12-23] MEDS: ALBUTEROL NEBULIZED 2.5 MG/3 ML INHALATION SCH (18:46)
[2017-12-23] MEDS: BUDESONIDE 0.5 MG/2 ML NEBU INHALATION SCH (18:47)
[2017-12-23] MEDS: HYDROcodone/APAP 5-325MG 1 EACH TAB PO PRN (21:23)
[2017-12-23] MEDS: THIAMINE 100 MG TAB PO SCH (22:17)
[2017-12-23] MEDS: METOPROLOL TARTRATE 50 MG TAB PO SCH (22:17)
[2017-12-24] MEDS: ALBUTEROL NEBULIZED 2.5 MG/3 ML INHALATION SCH ×4 (00:35→12:05)
[2017-12-24] MEDS: HYDROcodone/APAP 5-325MG 1 EACH TAB PO PRN ×2 (00:45→04:58)
[2017-12-24] MEDS ORDERED: PANTOPRAZOLE 40 MG TABLET PO SCH (07:30)
[2017-12-24] MEDS: BUDESONIDE 0.5 MG/2 ML NEBU INHALATION SCH (08:29)
[2017-12-24] MEDS ORDERED: FUROSEMIDE 40 MG TAB PO SCH (09:00)
[2017-12-24] MEDS ORDERED: QUEtiapine 100 MG TAB PO SCH (09:00)
[2017-12-24] MEDS ORDERED: PARoxetine 20 MG TAB PO SCH (09:00)
[2017-12-24] MEDS ORDERED: ATORVASTATIN 10 MG TAB PO SCH (09:00)
[2017-12-24] MEDS ORDERED: AMIODARONE 200 MG TAB PO SCH (09:00)
[2017-12-24] MEDS ORDERED: RIVAROXABAN 20 MG TAB PO SCH (09:00)
[2017-12-24] MEDS ORDERED: PRIMIDONE 25 MG TAB PO SCH (09:00)
[2017-12-24] MEDS: LACTATED RINGERS 1,000 ML IV SCH (09:16)
[2017-12-24] MEDS: METOPROLOL TARTRATE 50 MG TAB PO SCH (09:19)
[2017-12-24] MEDS: THIAMINE 100 MG TAB PO SCH (09:19)
--- NOTE | 2017-12-24 10:35 | P.DS ---
Providers Attending physician: Mikael Martins Primary care physician: [facility] Hospital Course: Patient is doing well Heart rate 7 the 50s blood pressure 121/79 mmHg Head and neck examination is normal heart sounds are normal breath sounds are clear [place] of healed well his [place] tender but there is no hematoma Abdomen soft nontender Extended is warm no edema Impression Symptomatically atrial flutter with RVR status post successful ablation history Symptomatic paroxysmal atrial defibrillation RVR awaiting pulmonary vein isolation Suggest Continue current medications continue anticoagulation and patient be discharged today and follow with Dr. Quick in a week Patient Condition at Discharge: Stable Plan - Discharge Summary Discharge Rx Participant: No New Discharge Prescriptions: Continue Rivaroxaban [Xarelto] 20 mg PO DAILY Thiamine [Vitamin B-1] 100 mg PO BID QUEtiapine [SEROquel] 100 mg PO DAILY Primidone [Mysoline] 75 mg PO DAILY PARoxetine HCL [Paxil] 40 mg PO DAILY Amiodarone HCl [Pacerone] 200 mg PO DAILY Budesonide [Pulmicort] 0.5 mg INHALATION RT-BID Albuterol Inhaler [Ventolin Hfa Inhaler] 2 puff INHALATION Q4H Furosemide [Lasix] 40 mg PO DAILY Atorvastatin [Lipitor] 10 mg PO DAILY Metoprolol Tartrate [Lopressor] 50 mg PO BID Umeclidinium [place] [Incruse Ellipta] 1 puff INHALATION DAILY Pantoprazole [Protonix] 40 mg PO DAILY Albuterol Nebulized [Ventolin Nebulized] 2.5 mg INHALATION Q8H Discharge Medication List Amiodarone HCl [Pacerone] 200 mg PO DAILY 07/23/17 [History] Budesonide [Pulmicort] 0.5 mg INHALATION RT-BID 07/23/17 [History] PARoxetine HCL [Paxil] 40 mg PO DAILY 07/23/17 [History] Primidone [Mysoline] 75 mg PO DAILY 07/23/17 [History] QUEtiapine [SEROquel] 100 mg PO DAILY 07/23/17 [History] Rivaroxaban [Xarelto] 20 mg PO DAILY 07/23/17 [History] Thiamine [Vitamin B-1] 100 mg PO BID 07/23/17 [History] Albuterol Inhaler [Ventolin Hfa Inhaler] 2 puff INHALATION Q4H 12/17/17 [History ] Albuterol Nebulized [Ventolin Nebulized] 2.5 mg INHALATION Q8H 12/17/17 [History ] Atorvastatin [Lipitor] 10 mg PO DAILY 12/17/17 [History] Furosemide [Lasix] 40 mg PO DAILY 12/17/17 [History] Metoprolol Tartrate [Lopressor] 50 mg PO BID 12/17/17 [History] Pantoprazole [Protonix] 40 mg PO DAILY 12/17/17 [History] Umeclidinium [place] [Incruse Ellipta] 1 puff INHALATION DAILY 12/17/17 [History ] Follow up Appointment(s)/Referral(s): Dariel Quick MD [STAFF PHYSICIAN] - 01/04/18 2:30 pm Patient Instructions/Handouts: Cardiac Ablation (DC) Activity/Diet/Wound Care/Special Instructions: Post EP study - Ablation instructions 1. Keep access sites dry for 2 days. 2. No heavy lifting or straining for 2 days. 3. Avoid bending the hips repeatedly for 2 days. 4. You may go up and down stairs slowly Call if the following is noted 1. Bleeding, increasing swelling or pain at the access sites. 2. Increasing chest discomfort, especially upon taking a deep breath. 3. Increasing shortness of breath, at rest or with exertion. 4. Undue cough / phlegm 5. Difficulty or pain while swallowing. 6. Pain or change in color in the extremities. 7. Fever, chills, rigors. 8. Increasing headache or neurologic symptoms. 9. Dizziness, fainting, palpitations Follow-up with Dr. Quick in 1 week Discharge Disposition: HOME SELF-CARE
[2017-12-24 12:27] VITALS: BP 107/63; PULSE 65; RESP 18; TEMP 98.1
== END 2017-12-24 13:40 | disposition home or self-care (01) ==
LOC: CATHEP 09:34 → 3OBS 13:07 → EEVIPCON 17:30 → 3OBS 22:47 → CATHEP 12-24 13:40
PROVIDERS: ATTEND Internal Medicine Clinical Cardiac Electrophysiology
DX: I48.1 Persistent atrial fibrillation (principal); Z79.01 Long term (current) use of anticoagulants; I42.0 Dilated cardiomyopathy; I11.0 Hypertensive heart disease with heart failure; I50.22 Chronic systolic (congestive) heart failure; I48.91 Unspecified atrial fibrillation; I42.9 Cardiomyopathy, unspecified; Z87.891 Personal history of nicotine dependence; E05.90 Thyrotoxicosis, unspecified without thyrotoxic crisis or storm; E78.5 Hyperlipidemia, unspecified; E07.9 Disorder of thyroid, unspecified; Z79.51 Long term (current) use of inhaled steroids; Z79.890 Hormone replacement therapy; Z79.899 Other long term (current) drug therapy; Z88.8 Allergy status to other drugs, medicaments and biological substances
CPT/HCPCS: 94640 ×3; 93623; 93662; 93613; 93653; C1894; C1769 ×2; C1893; C1730 ×2; C1759; C1732; J2250; J2710; J2001; J3010; J1644; J2370; J0330; J2704

== ENCOUNTER 2018-01-03 16:06 | Inpatient (IN) | payer OTHER ==
[2018-01-03] MEDS ORDERED: SODIUM CHLORIDE 0.9% 1,000 ML IV STA ×3 (16:14→16:29)
[2018-01-03] MEDS ORDERED: IPRATROPIUM-ALBUTEROL 3 ML NEB INHALATION STA (16:16)
[2018-01-03] MEDS ORDERED: methylPREDNISolone SOD SUCCI 125 MG/2 ML VIAL IV STA (16:16)
--- NOTE | 2018-01-03 16:19 | ED ---
SOB HPI - General Stated Complaint: Diff Breathing Time Seen by Provider: 01/03/18 16:14 Source: patient, EMS, RN notes reviewed Mode of arrival: EMS - History of Present Illness Initial Comments: This is a 52-year-old male with a history of COPD and chronic atrial fibrillation who is status post a recent cardiac ablation who presents with complaints of 2 days of shortness of breath and some palpitations. He was brought in by EMS. He denies any fevers chills nausea vomiting sweats or cough is complaining of shortness of breath he was found to have a variable rate of 80 -120 bpm per paramedics. Patient denies any other modifying factors at this time MD Complaint: shortness of breath - Related Data Home Medications Medication Instructions Recorded Confirmed RX: Amiodarone HCl [Pacerone] 200 mg PO DAILY 07/23/17 01/03/18 RX: Budesonide [Pulmicort] 0.5 mg INHALATION RT-BID 07/23/17 01/03/18 RX: PARoxetine HCL [Paxil] 40 mg PO DAILY 07/23/17 01/03/18 RX: Primidone [Mysoline] 75 mg PO DAILY 07/23/17 01/03/18 RX: QUEtiapine [SEROquel] 100 mg PO HS 07/23/17 01/03/18 RX: Rivaroxaban [Xarelto] 20 mg PO DAILY 07/23/17 01/03/18 RX: Thiamine [Vitamin B-1] 100 mg PO BID 07/23/17 01/03/18 RX: Albuterol Inhaler [Ventolin 2 puff INHALATION RT-Q6H PRN 12/17/17 01/03/18 Hfa Inhaler] RX: Albuterol Nebulized [Ventolin 2.5 mg INHALATION RT-TID 12/17/17 01/03/18 Nebulized] RX: Atorvastatin [Lipitor] 10 mg PO HS 12/17/17 01/03/18 RX: Furosemide [Lasix] 40 mg PO DAILY 12/17/17 01/03/18 RX: Metoprolol Tartrate [Lopressor] 50 mg PO BID 12/17/17 01/03/18 RX: Pantoprazole [Protonix] 40 mg PO DAILY 12/17/17 01/03/18 RX: Umeclidinium [place] [Incruse 1 puff INHALATION RT-DAILY 12/17/17 01/03/18 Ellipta] Budesonide [Pulmicort Flexhaler] 2 puff INHALATION RT-BID 01/03/18 01/03/18 Allergies Allergy/AdvReac Type Severity Reaction Status Date / Time warfarin [From Coumadin] AdvReac MAKES Verified 01/03/18 17:01 BLOOD TOO THIN Review of Systems ROS Statement: Those systems with pertinent positive or pertinent negative responses have been documented in the HPI. ROS Other: All systems not noted in ROS Statement are negative. Past Medical History Past Medical History: Atrial Fibrillation, Atrial Flutter, Cancer, Chest Pain / Angina, Heart Failure, COPD, Hyperlipidemia, Hypertension, Myocardial Infarction ([place]), Pneumonia, Pulmonary Embolus (PE), Syncope, Thyroid Disorder Additional Past Medical History / Comment(s): cardiomyopathy with an ejection fraction of 40%, Graves disease, tremors, pulmonary embolism 04/22/2016, squamous cell skin cancer with removal, see Dr Martins [facility], severe fall in 2016-was in ICU w/fx. ribs,chest tubes, chronic alcoholism Last Myocardial Infarction Date:: October 2016 History of Any Multi-Drug Resistant Organisms: MRSA Date of last positivie culture/infection: 05/24/17 MDRO Source:: bronch/sputum Past Surgical History: Adenoidectomy, Cholecystectomy, Tonsillectomy Additional Past Surgical History / Comment(s): RT HAND SX (TENDON REPAIR).RT THIGH SKIN LESION EXCISION(SQUAMOUS CELL CARCINOMA), functional endoscopic sinus surgery/septoplasty, trach & feeding tube 2016 after a fall Past Anesthesia/Blood Transfusion Reactions: No Reported Reaction Past Psychological History: Anxiety Additional Psychological History / Comment(s): Pt resides with his brother. He is independent. Smoking Status: Current every day smoker Past Alcohol Use History: Heavy Additional Past Alcohol Use History / Comment(s): chronic drinker-states last drank couple days ago, started smoking again, smokes about 8 cigs/day, has smoked on & off for 30 yrs. Past Drug Use History: None Reported - Past Family History Mother Family Medical History: Cancer, Congestive Heart Failure (CHF), Coronary Artery Disease (CAD), CVA/TIA Additional Family Medical History / Comment(s): Mother had throat cancer and of this at the age of 68yrs. Father Additional Family Medical History / Comment(s): IN [place] WHEN PT WAS 1 YEARS OLD. General Exam - General Exam Comments Initial Comments: This is a well-developed well-nourished awake alert oriented 3 male General appearance: alert, anxious Head exam: Present: atraumatic, normocephalic, normal inspection Eye exam: Present: normal appearance, PERRL, EOMI. Absent: scleral icterus, conjunctival injection, periorbital swelling ENT exam: Present: mucous membranes dry Neck exam: Present: normal inspection. Absent: tenderness, meningismus, lymphadenopathy Respiratory exam: Present: normal lung sounds bilaterally. Absent: respiratory distress, wheezes, rales, rhonchi, stridor Cardiovascular Exam: Present: irregular rhythm. Absent: systolic murmur, diastolic murmur, rubs, gallop, clicks GI/Abdominal exam: Present: soft, normal bowel sounds. Absent: distended, tenderness, guarding, rebound, rigid Extremities exam: Present: normal inspection, full ROM, normal capillary refill. Absent: tenderness, pedal edema, joint swelling, calf tenderness Back exam: Present: normal inspection Neurological exam: Present: alert, oriented X3, CN II-XII intact Psychiatric exam: Present: normal affect, normal mood Skin exam: Present: warm, dry, intact, normal color. 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 ] Respiratory 18 18 Rate Blood Pressure 76/51 71/51 O2 Sat by Pulse 96 93 L Oximetry 01/03/18 01/03/18 01/03/18 16:56 17:09 17:33 Temperature 97.5 F L Pulse Rate 92 84 54 L Pulse Rate [ Structural Steel Painter ] Respiratory 18 Rate Blood Pressure 81/48 O2 Sat by Pulse 94 L Oximetry 01/03/18 01/03/18 01/03/18 17:43 18:00 18:20 Temperature Pulse Rate 54 L 56 L 60 Pulse Rate [ Structural Steel Painter ] Respiratory 18 20 20 Rate Blood Pressure 88/62 90/56 90/55 O2 Sat by Pulse 93 L 95 95 Oximetry 01/03/18 01/03/18 01/03/18 19:00 19:23 19:45 Temperature Pulse Rate 83 64 62 Pulse Rate [ Structural Steel Painter ] Respiratory 20 20 20 Rate Blood Pressure 95/60 104/60 111/64 O2 Sat by Pulse 95 97 95 Oximetry 01/03/18 01/03/18 20:15 20:43 Temperature Pulse Rate 64 62 Pulse Rate [ Structural Steel Painter ] Respiratory 20 20 Rate Blood Pressure 116/67 116/69 O2 Sat by Pulse 94 L 95 Oximetry - Reevaluation(s) Reevaluation #1: 01/03/18 16:31 The patient did admit to drinking one beer today. He does have a history of alcohol abuse. Reevaluation #2: 01/03/18 21:01 Patient did require IV fluids as he was hypotensive though he appeared to be asymptomatic he did improve after IV fluids. Lung sounds maintained clarity with relatively good aeration. Medical Decision Making - Medical Decision Making Patient did improved with respect to blood pressure and breathing. He will be admitted his heart rate he has prostate 100+ or minus a BMP though is elevated his lung sounds are clear at this time. He will be admitted with consultation by cardiology. The patient consistent with a combination of COPD exacerbation with chronic atrial fibrillation and some evidence of CHF. - Lab Data Result diagrams: 01/03/18 16:30 01/03/18 16:30 Lab Results 01/03/18 01/03/18 01/03/18 Range/Units 16:30 16:30 16:30 WBC 5.6 (3.8-10.6) k/uL RBC 4.33 (4.30-5.90) m/uL Hgb 12.5 L (13.0-17.5) gm/dL Hct 38.7 L (39.0-53.0) % MCV 89.3 (80.0-100.0) fL MCH 28.8 (25.0-35.0) pg MCHC 32.3 (31.0-37.0) g/dL RDW 15.7 H (11.5-15.5) % Plt Count 249 (150-450) k/uL Neutrophils % 62 % Lymphocytes % 26 % Monocytes % 9 % Eosinophils % 1 % Basophils % 0 % Neutrophils # 3.5 (1.3-7.7) k/uL Lymphocytes # 1.4 (1.0-4.8) k/uL Monocytes # 0.5 (0-1.0) k/uL Eosinophils # 0.1 (0-0.7) k/uL Basophils # 0.0 (0-0.2) k/uL PT (9.0-12.0) sec INR (<1.2) APTT (22.0-30.0) sec Sodium 134 L (137-145) mmol/L Potassium 4.4 (3.5-5.1) mmol/L Chloride 106 (98-107) mmol/L Carbon Dioxide 13 L (22-30) mmol/L Anion Gap 15 mmol/L BUN 17 (9-20) mg/dL Creatinine 1.76 H (0.66-1.25) mg/dL Est GFR (CKD-EPI)AfAm 50 (>60 ml/min/1.73 sqM) Est GFR (CKD-EPI)NonAf 43 (>60 ml/min/1.73 sqM) Glucose 119 H (74-99) mg/dL Calcium 8.8 (8.4-10.2) mg/dL Magnesium 1.9 (1.6-2.3) mg/dL Total Bilirubin 1.0 (0.2-1.3) mg/dL AST 46 (17-59) U/L ALT 54 (21-72) U/L Alkaline Phosphatase 104 (38-126) U/L Total Creatine Kinase 82 (55-170) U/L CK-MB (CK-2) 2.4 (0.0-2.4) ng/mL CK-MB (CK-2) Rel Index 2.9 Troponin I 0.037 H* (0.000-0.034) ng/mL NT-Pro-B Natriuret Pep pg/mL Total Protein 6.6 (6.3-8.2) g/dL Albumin 3.6 (3.5-5.0) g/dL Amylase 49 (30-110) U/L Lipase 44 (23-300) U/L Serum Alcohol 122 mg/dL 01/03/18 01/03/18 Range/Units 16:30 16:30 WBC (3.8-10.6) k/uL RBC (4.30-5.90) m/uL Hgb (13.0-17.5) gm/dL Hct (39.0-53.0) % MCV (80.0-100.0) fL MCH (25.0-35.0) pg MCHC (31.0-37.0) g/dL RDW (11.5-15.5) % Plt Count (150-450) k/uL Neutrophils % % Lymphocytes % % Monocytes % % Eosinophils % % Basophils % % Neutrophils # (1.3-7.7) k/uL Lymphocytes # (1.0-4.8) k/uL Monocytes # (0-1.0) k/uL Eosinophils # (0-0.7) k/uL Basophils # (0-0.2) k/uL PT 15.5 H (9.0-12.0) sec INR 1.7 H (<1.2) APTT 39.3 H (22.0-30.0) sec Sodium (137-145) mmol/L Potassium (3.5-5.1) mmol/L Chloride (98-107) mmol/L Carbon Dioxide (22-30) mmol/L Anion Gap mmol/L BUN (9-20) mg/dL Creatinine (0.66-1.25) mg/dL Est GFR (CKD-EPI)AfAm (>60 ml/min/1.73 sqM) Est GFR (CKD-EPI)NonAf (>60 ml/min/1.73 sqM) Glucose (74-99) mg/dL Calcium (8.4-10.2) mg/dL Magnesium (1.6-2.3) mg/dL Total Bilirubin (0.2-1.3) mg/dL AST (17-59) U/L ALT (21-72) U/L Alkaline Phosphatase (38-126) U/L Total Creatine Kinase (55-170) U/L CK-MB (CK-2) (0.0-2.4) ng/mL CK-MB (CK-2) Rel Index Troponin I (0.000-0.034) ng/mL NT-Pro-B Natriuret Pep 97485 pg/mL Total Protein (6.3-8.2) g/dL Albumin (3.5-5.0) g/dL Amylase (30-110) U/L Lipase (23-300) U/L Serum Alcohol mg/dL - EKG Data -: EKG Interpreted by Me ( fibrillation rate of 83 QRS 100 QT since QTC of 43 10/16/2013 prolonged) - Radiology Data Radiology results: report reviewed (I did review the imaging and report no definite acute findings seen), image reviewed Critical Care Time Critical Care Time: Yes Critical Care Time: 43 minutes of critical care time which includes initial monitoring of the EMS call discussed with paramedics history physical labs x-rays multiple re- evaluations patient response to therapy discuss with the admitting physician admission orders and documentation of the above. Disposition Clinical Impression: COPD exacerbation, Chronic atrial fibrillation, Congestive heart failure (CHF) , Renal insufficiency, Hypotensive episode Disposition: ADMITTED IP TO THIS HOSP Condition: Stable Referrals: Mónica Acosta MD [Primary Care Provider] - 1-2 days
[2018-01-03 16:40] LABS: Basophils % (A) 0 %; Eosinophils # (A) 0.1 k/uL (0-0.7); Eosinophils % (A) 1 %; HCT 38.7 % (39.0-53.0); HGB 12.5 gm/dL (13.0-17.5); Lymphocytes # (A) 1.4 k/uL (1.0-4.8); Lymphocytes % (A) 26 %; MCH 28.8 pg (25.0-35.0); MCHC 32.3 g/dL (31.0-37.0); MCV 89.3 fL (80.0-100.0); Mean Platelet Volume 6.6; Monocytes # (A) 0.5 k/uL (0-1.0); Monocytes % (A) 9 %; Neutrophils # (A) 3.5 k/uL (1.3-7.7); Neutrophils % (A) 62 %; Platelet Count 249 k/uL (150-450); RBC 4.33 m/uL (4.30-5.90); RDW 15.7 % (11.5-15.5); WBC 5.6 k/uL (3.8-10.6)
[2018-01-03 16:47] LABS: INR 1.7 (<1.2); Partial Thromboplastin Time 39.3 sec (22.0-30.0); Prothrombin Time 15.5 sec (9.0-12.0)
[2018-01-03 17:03] LABS: Albumin 3.6 g/dL (3.5-5.0); Calcium 8.8 mg/dL (8.4-10.2); Magnesium 1.9 mg/dL (1.6-2.3); Potassium 4.4 mmol/L (3.5-5.1); Total Protein 6.6 g/dL (6.3-8.2)
[2018-01-03 17:04] LABS: Creatine Kinase MB 2.4 ng/mL (0.0-2.4)
[2018-01-03 17:06] LABS: Troponin I 0.037 ng/mL (0.000-0.034)
--- NOTE | 2018-01-03 17:33 | XR ---
EXAMINATION TYPE: XR chest 2V DATE OF EXAM: 01/03/2018 COMPARISON: NONE HISTORY: Dysrhythmia TECHNIQUE: Frontal and lateral views of the chest are obtained. FINDINGS: There are multiple old right-sided healed rib fractures. There is no heart failure nor con fluent pneumonic infiltrate. Costophrenic angles are clear. Heart is slightly enlarged. There are ped[address] leads. IMPRESSION: No active cardiopulmonary disease. Mild cardiomegaly. No change.
[2018-01-03] MEDS ORDERED: SODIUM CHLORIDE 0.9% 500 ML IV STA (17:42)
[2018-01-03] MEDS ORDERED: fentaNYL (PF) 50 MCG/ML 2 ML AMP IV STA (20:01)
[2018-01-04] MEDS: methylPREDNISolone SOD SUCCI 125 MG/2 ML VIAL IV SCH ×2 (00:29→06:43)
[2018-01-04] MEDS ORDERED: traMADol 50 MG TAB PO SCH (00:45)
[2018-01-04] MEDS: IPRATROPIUM-ALBUTEROL 3 ML NEB INHALATION SCH ×7 (00:45→23:46)
[2018-01-04 05:43] LABS: Glucose,Whole Blood 228 mg/dL (75-99)
[2018-01-04 05:55] LABS: Basophils % (A) 0 %; Eosinophils % (A) 0 %; HCT 35.6 % (39.0-53.0); HGB 11.4 gm/dL (13.0-17.5); Lymphocytes # (A) 0.6 k/uL (1.0-4.8); Lymphocytes % (A) 16 %; MCH 28.7 pg (25.0-35.0); MCHC 31.9 g/dL (31.0-37.0); MCV 89.9 fL (80.0-100.0); Mean Platelet Volume 6.6; Monocytes # (A) 0.1 k/uL (0-1.0); Monocytes % (A) 4 %; Neutrophils # (A) 3.1 k/uL (1.3-7.7); Neutrophils % (A) 80 %; Platelet Count 183 k/uL (150-450); RBC 3.96 m/uL (4.30-5.90); RDW 15.8 % (11.5-15.5); WBC 3.9 k/uL (3.8-10.6)
[2018-01-04 06:08] LABS: Calcium 8.4 mg/dL (8.4-10.2); Potassium 4.6 mmol/L (3.5-5.1)
[2018-01-04] MEDS: INSULIN ASPART 100 UNIT/ML 1 ML 10 ML VIAL SQ SCH ×4 (06:44→21:39)
[2018-01-04] MEDS: PANTOPRAZOLE 40 MG TABLET PO SCH (06:44)
[2018-01-04] MEDS: traMADol 50 MG TAB PO PRN ×3 (06:49→21:37)
[2018-01-04] MEDS ORDERED: FUROSEMIDE 40 MG TAB PO SCH (09:00)
[2018-01-04] MEDS: AMIODARONE 200 MG TAB PO SCH (09:15)
[2018-01-04] MEDS: METOPROLOL TARTRATE 50 MG TAB PO SCH ×2 (09:15→21:38)
[2018-01-04] MEDS: FUROSEMIDE 10 MG/ML 4 ML VIAL IV SCH ×2 (09:15→21:37)
[2018-01-04] MEDS: PARoxetine 20 MG TAB PO SCH (09:16)
[2018-01-04] MEDS: THIAMINE 100 MG TAB PO SCH ×2 (09:16→21:38)
[2018-01-04] MEDS: PRIMIDONE 25 MG TAB PO SCH (09:16)
[2018-01-04] MEDS: RIVAROXABAN 20 MG TAB PO SCH (09:16)
--- NOTE | 2018-01-04 09:43 | P.CRDCN ---
History of Present Illness Consult date: 01/04/18 Requesting physician: Nicole Grider Consult reason: congestive heart failure Chief complaint: Shortness of breath and chest pressure History of present illness: This is a 52-year-old gentleman who follows regularly with Dr. Quick in the office, he has history of EtOH abuse, paroxysmal atrial fibrillation for which she under went ablation for atrial flutter by Dr. Martins approximately a week ago, idiopathic cardiomyopathy, COPD, hyperlipidemia, who presents to the hospital on this occasion with symptoms of progressively worsening shortness of breath with associated chest pressure. Patient states that since his ablation he has noticed himself to be quite short of breath when he exerts himself, he sits down and rests and symptoms site, the last few days, even at rest he was getting symptoms. For this reason he came to the emergency room for further evaluation. Just prior to getting on the EMS stretcher, patient states he became quite dizzy and lost consciousness. He did not fall to the ground as EMS workers held onto him. Blood pressure was documented to be low, patient states that he has noticed his blood pressure running a much lower than usual since his ablation procedure. Patient also states that he's had a significant cough of productive yellow sputum for the past couple of days. Chest x-ray does not reveal any active cardiopulmonary disease. EKG shows atrial fibrillation with controlled ventricular response. Blood pressure 120/70, heart rate in the 70s, 93% on room air. White blood cell count 3.9, hemoglobin 11.4, platelet count 183. Sodium 133, potassium 4.6, BUN 22, creatinine 13, creatinine was 1.7 on admission. Magnesium 1.9. Troponins 0.037, 0.013, 0.012. BNP level 28,800.Alcohol level 122 on admission. At the time of my examination this morning, still complains of feeling short of breath, continues to have significant productive cough. Denies any chest pressure this morning. The pressure this morning 137/90 with heart rate in the 70s, 97% on room air, he is afebrile. Patient did have one low grade temperature through the night last night. Past Medical History Past Medical History: Atrial Fibrillation, Atrial Flutter, Cancer, Chest Pain / Angina, Heart Failure, COPD, Hyperlipidemia, Hypertension, Myocardial Infarction ([place]), Pneumonia, Pulmonary Embolus (PE), Syncope, Thyroid Disorder Additional Past Medical History / Comment(s): cardiomyopathy with an ejection fraction of 40%, Graves disease, tremors, pulmonary embolism 04/22/2016, squamous cell skin cancer with removal, see Dr Martins H & P, severe fall down flight of steps in 2016-was in ICU w/fx. ribs,pneumonthorax/hemothorax required chest tubes,past resp failure requiring vent/trach. chronic alcoholism Last Myocardial Infarction Date:: October 2016 History of Any Multi-Drug Resistant Organisms: MRSA Date of last positivie culture/infection: 05/24/17 MDRO Source:: bronch/sputum Past Surgical History: Adenoidectomy, Cholecystectomy, Tonsillectomy Additional Past Surgical History / Comment(s): RT HAND SX (TENDON REPAIR).RT THIGH SKIN LESION EXCISION(SQUAMOUS CELL CARCINOMA), functional endoscopic sinus surgery/septoplasty,chest tube/ trach & feeding tube 2016 after a fall, bronchoscopy,cardiac ablation Past Anesthesia/Blood Transfusion Reactions: No Reported Reaction Past Psychological History: Anxiety Additional Psychological History / Comment(s): Pt resides with his brother. He is independent.has a nebulizer. Smoking Status: Former smoker Past Alcohol Use History: Heavy Additional Past Alcohol Use History / Comment(s): started smoking at age 16 has smoked off and on quit 3 weeks ago around december 14 2017. pt admits to drinking 3 -4 times a week 7-12 beers per week Past Drug Use History: None Reported - Past Family History Mother Family Medical History: Cancer, Congestive Heart Failure (CHF), Coronary Artery Disease (CAD), CVA/TIA Additional Family Medical History / Comment(s): Mother had throat cancer and of this at the age of 68yrs. Father Additional Family Medical History / Comment(s): IN [place] WHEN PT WAS 1 YEARS OLD. Medications and Allergies Home Medications Medication Instructions Recorded Confirmed Type Amiodarone HCl [Pacerone] 200 mg PO DAILY 07/23/17 01/03/18 History Budesonide [Pulmicort] 0.5 mg INHALATION RT-BID 07/23/17 01/03/18 History PARoxetine HCL [Paxil] 40 mg PO DAILY 07/23/17 01/03/18 History Primidone [Mysoline] 75 mg PO DAILY 07/23/17 01/03/18 History QUEtiapine [SEROquel] 100 mg PO HS 07/23/17 01/03/18 History Rivaroxaban [Xarelto] 20 mg PO DAILY 07/23/17 01/03/18 History Thiamine [Vitamin B-1] 100 mg PO BID 07/23/17 01/03/18 History Albuterol Inhaler [Ventolin Hfa 2 puff INHALATION RT-Q6H PRN 12/17/17 01/03/18 History Inhaler] Albuterol Nebulized [Ventolin 2.5 mg INHALATION RT-TID 12/17/17 01/03/18 History Nebulized] Atorvastatin [Lipitor] 10 mg PO HS 12/17/17 01/03/18 History Furosemide [Lasix] 40 mg PO DAILY 12/17/17 01/03/18 History Metoprolol Tartrate [Lopressor] 50 mg PO BID 12/17/17 01/03/18 History Pantoprazole [Protonix] 40 mg PO DAILY 12/17/17 01/03/18 History Umeclidinium [place] [Incruse 1 puff INHALATION RT-DAILY 12/17/17 01/03/18 History Ellipta] Budesonide [Pulmicort Flexhaler] 2 puff INHALATION RT-BID 01/03/18 01/03/18 History Allergies Allergy/AdvReac Type Severity Reaction Status Date / Time warfarin [From Coumadin] AdvReac MAKES Verified 01/03/18 17:01 BLOOD TOO THIN Physical Exam Vitals: Vital Signs Temp Pulse Pulse Resp BP BP Pulse Ox 01/04/18 08:14 74 01/04/18 08:04 72 01/04/18 04:23 69 01/04/18 04:14 66 01/04/18 04:00 97.2 F L 79 17 119/71 93 L 01/04/18 00:55 68 01/04/18 00:45 69 01/04/18 00:00 97.2 F L 67 19 128/74 99 01/03/18 23:00 98.9 F 65 20 128/56 95 01/03/18 22:00 99.0 F 68 20 123/68 95 01/03/18 21:15 63 20 119/70 95 01/03/18 20:43 62 20 116/69 95 01/03/18 20:15 64 20 116/67 94 L 01/03/18 19:45 62 20 111/64 95 01/03/18 19:23 64 20 104/60 97 01/03/18 19:00 83 20 95/60 95 01/03/18 18:20 60 20 90/55 95 01/03/18 18:00 56 L 20 90/56 95 01/03/18 17:43 54 L 18 88/62 93 L 01/03/18 17:33 97.5 F L 54 L 18 81/48 94 L 01/03/18 17:09 84 01/03/18 16:56 92 01/03/18 16:45 98 18 71/51 93 L 01/03/18 16:35 91 01/03/18 16:17 98.6 F 104 H 18 76/51 96 Intake and Output 01/03/18 01/04/18 01/04/18 22:59 06:59 14:59 Intake Total 700 240 Output Total 450 Balance 250 240 Intake: Intake, IV Titration 450 Amount Sodium Chloride 0.9% 1, 450 000 ml @ 75 mls/hr IV . [id number] STA Rx#:[id number] Oral 250 240 Output: Urine 450 Other: Voiding Method Urinal Weight 77.111 kg 80.7 kg PHYSICAL EXAMINATION: GENERAL: 52-year-old gentleman mildly short of breath at the time of my examination HEENT: Head is atraumatic, normocephalic. Pupils equal, round. Sclera anicteric. Conjunctiva are clear. Mucous membranes of the mouth are moist. Neck is supple. There is elevated jugular venous pressure.] bruit is heard. HEART EXAMINATION: Heart S1 and S2 irregularly irregular CHEST EXAMINATION:. Lungs reveal diminished air entry bilaterally, coarse scattered rhonchi throughout ABDOMEN: Soft, nontender. Bowel sounds are heard. No organomegaly noted. EXTREMITIES: 1+ peripheral pulses with no evidence of peripheral edema and no calf tenderness noted. NEUROLOGIC patient is awake, alert and oriented ?-3. . Results 01/04/18 05:30 01/04/18 05:30 Cardiac Enzymes 01/03/18 01/03/18 01/03/18 Range/Units 16:30 16:30 22:23 AST 46 (17-59) U/L CK-MB (CK-2) 2.4 (0.0-2.4) ng/mL Troponin I 0.037 H* 0.013 (0.000-0.034) ng/mL 01/04/18 Range/Units 05:30 AST (17-59) U/L CK-MB (CK-2) (0.0-2.4) ng/mL Troponin I <0.012 (0.000-0.034) ng/mL Coagulation 01/03/18 Range/Units 16:30 PT 15.5 H (9.0-12.0) sec APTT 39.3 H (22.0-30.0) sec CBC 01/03/18 01/04/18 Range/Units 16:30 05:30 WBC 5.6 3.9 (3.8-10.6) k/uL RBC 4.33 3.96 L (4.30-5.90) m/uL Hgb 12.5 L 11.4 L (13.0-17.5) gm/dL Hct 38.7 L 35.6 L (39.0-53.0) % Plt Count 249 183 (150-450) k/uL Comprehensive Metabolic Panel 01/03/18 01/04/18 Range/Units 16:30 05:30 Sodium 134 L 133 L (137-145) mmol/L Potassium 4.4 4.6 (3.5-5.1) mmol/L Chloride 106 104 (98-107) mmol/L Carbon Dioxide 13 L 20 L (22-30) mmol/L BUN 17 22 H (9-20) mg/dL Creatinine 1.76 H 1.30 H (0.66-1.25) mg/dL Glucose 119 H 210 H (74-99) mg/dL Calcium 8.8 8.4 (8.4-10.2) mg/dL AST 46 (17-59) U/L ALT 54 (21-72) U/L Alkaline Phosphatase 104 (38-126) U/L Total Protein 6.6 (6.3-8.2) g/dL Albumin 3.6 (3.5-5.0) g/dL Current Medications Generic Name Dose Route Start Last Admin Trade Name Freq PRN Reason Stop Dose Admin Albuterol/Ipratropium 3 ml 01/04/18 00:00 01/04/18 08:01 Duoneb 0.5 Mg-3 Mg/3 Ml Soln INHALATION 3 ml RT-Q4H RENZO Administration Amiodarone HCl 200 mg 01/04/18 09:00 Cordarone PO DAILY [facility] Atorvastatin Calcium 10 mg 01/04/18 21:00 Lipitor PO HS [facility] Furosemide 40 mg 01/04/18 09:00 Lasix IV Q12HR [facility] Insulin Aspart 0 unit 01/04/18 07:30 01/04/18 06:44 Novolog SQ 7 unit ACHS RENZO Administration Protocol Methylprednisolone Sodium Succinate 60 mg 01/04/18 00:00 01/04/18 06:43 Solu-Medrol IV 60 mg Q6HR RENZO Administration Metoprolol Tartrate 50 mg 01/04/18 09:00 Lopressor PO BID [facility] Pantoprazole Sodium 40 mg 01/04/18 07:30 01/04/18 06:44 Protonix PO 40 mg [id number] RENZO Administration Paroxetine HCl 40 mg 01/04/18 09:00 Paxil PO DAILY [facility] Primidone 75 mg 01/04/18 09:00 Mysoline PO DAILY [facility] Quetiapine Fumarate 100 mg 01/04/18 21:00 Seroquel PO HS [facility] Rivaroxaban 20 mg 01/04/18 09:00 Xarelto PO DAILY [facility] Thiamine HCl 100 mg 01/04/18 09:00 Vitamin B-1 PO BID [facility] Tramadol HCl 50 mg 01/04/18 04:59 01/04/18 06:49 Ultram PO 50 mg QID PRN Administration Moderate Pain Intake and Output 01/03/18 01/04/18 01/04/18 22:59 06:59 14:59 Intake Total 700 240 Output Total 450 Balance 250 240 Intake: Intake, IV Titration 450 Amount Sodium Chloride 0.9% 1, 450 000 ml @ 75 mls/hr IV . [id number] STA Rx#:[id number] Oral 250 240 Output: Urine 450 Other: Voiding Method Urinal Weight 77.111 kg 80.7 kg 01/04/18 05:30 01/04/18 05:30 EKG Interpretations (text) EKG shows atrial fibrillation with a controlled ventricular response Assessment and Plan Plan: Assessment and plan #1 systolic congestive heart failure acute on chronic with associated possible tracheobronchitis #2 chronic persistent atrial fibrillation #3 history of atrial flutter with recent ablation approximately one week ago #4 EtOH abuse #5 hypertension, hypotensive this admission #6 hyperlipidemia #7 COPD #8 nicotine dependence although patient states he's quit smoking recently #9 recent syncopal episode likely secondary to hypotension. Plan We will obtain an echocardiogram with Doppler study. Continue current dose of IV Lasix. Check orthostatics. Monitor renal function. Further recommendations to follow. DNP note has been reviewed, I agree with a documented findings and plan of care. Patient was seen and examined.
[2018-01-04 11:20] LABS: Glucose,Whole Blood 217 mg/dL (75-99)
--- NOTE | 2018-01-04 11:32 | ECHOF ---
Referral Reason:sob MEASUREMENTS -------- HEIGHT: 162.6 cm WEIGHT: 80.3 kg BP: 137/91 RVIDd: 3.0 cm (< 3.3) IVSd: 0.9 cm (0.6 - 1.1) LVIDd: 5.7 cm (3.9 - 5.3) LVPWd: 0.9 cm (0.6 - 1.1) IVSs: 1.3 cm LVIDs: 4.8 cm LVPWs: 1.2 cm LA Diam: 3.7 cm (2.7 - 3.8) LAESV Index (A-L): 39.55 ml/m Ao Diam: 3.0 cm (2.0 - 3.7) AV Cusp: 2.2 cm (1.5 - 2.6) LA Diam: 4.4 cm (2.7 - 3.8) MV EXCURSION: 22.213 mm (> 18.000) MV EF SLOPE: 120 mm/s (70 - 150) EPSS: 1.4 cm MV E Aris: 0.54 m/s MV DecT: 181 ms MV A Aris: 0.44 m/s MV E/A Ratio: 1.21 RAP: 5.00 mmHg RVSP: 18.74 mmHg FINDINGS -------- Undetermined rhythm. This was a technically adequate study. The left ventricular size is normal. Left ventricular wall thickness is normal. Overall left vent ricular systolic function is mildly impaired with, an EF between 45 - 50 %. The right ventricle is normal in size. The left atrium is mildly dilated. LA is severely dilated >40 ml/m2 The right atrial size is normal. The aortic valve is trileaflet, and appears structurally normal. No aortic stenosis or regurgitation. Mild mitral annular calcification present. Mild mitral regurgitation is present. Mild tricuspid regurgitation present. There is no evidence of pulmonary hypertension. The right v entricular systolic pressure, as measured by Doppler, is 18.74mmHg. There is no pulmonic regurgitation present. The aortic root size is normal. There is no pericardial effusion. CONCLUSIONS -------- 1. The left ventricular size is normal. 2. Left ventricular wall thickness is normal. 3. Overall left ventricular systolic function is mildly impaired with, an EF between 45 - 50 %. 4. The right ventricle is normal in size. 5. The left atrium is mildly dilated. 6. LA is severely dilated >40 ml/m2 7. The right atrial size is normal. 8. The aortic valve is trileaflet, and appears structurally normal. No aortic stenosis or regurgitati on. 9. Mild mitral annular calcification present. 10. Mild mitral regurgitation is present. 11. Mild tricuspid regurgitation present. 12. There is no evidence of pulmonary hypertension. 13. The right ventricular systolic pressure, as measured by Doppler, is 18.74mmHg. 14. There is no pulmonic regurgitation present. 15. The aortic root size is normal. 16. There is no pericardial effusion. PET NUTRITION SPECIALIST: Radha Zee RDCS
--- NOTE | 2018-01-04 12:17 | P.HPIM ---
History of Present Illness 52-year-old the history of atrial fibrillation, history of nonischemic myopathy ejection fraction of 30-35% came in with complaints of shortness of breath orthopnea unsure about proximal nocturnal dyspnea. Patient is not wheezing patient does have crackles does have elevated JVD was started on Lasix with improvement in creatinine has elevated BNP of 28,000. Alcohol level of 122 patient denied any chest pain. Patient shortness of breath improved patient is not in COPD exacerbation patient had a recent the ablation procedure for atrial flutter Review of Systems REVIEW OF SYSTEMS: CONSTITUTIONAL: No fever, no malaise, no fatigue. HEENT: No recent visual problems or hearing problems. Denied any sore throat. CARDIOVASCULAR: No chest pain,. PULMONARY: no cough, no hemoptysis. GASTROINTESTINAL: No diarrhea, no nausea, no vomiting, no abdominal pain. Normoactive bowel sounds. NEUROLOGICAL: No headaches, no weakness, no numbness. HEMATOLOGICAL: Denies any bleeding or petechiae. GENITOURINARY: Denies any burning micturition, frequency, or urgency. MUSCULOSKELETAL/RHEUMATOLOGICAL: Denies any joint pain, swelling, or any muscle pain. ENDOCRINE: Denies any polyuria or polydipsia. The rest of the 14-point review of systems is negative. Past Medical History Past Medical History: Atrial Fibrillation, Atrial Flutter, Cancer, Chest Pain / Angina, Heart Failure, COPD, Hyperlipidemia, Hypertension, Myocardial Infarction ([place]), Pneumonia, Pulmonary Embolus (PE), Syncope, Thyroid Disorder Additional Past Medical History / Comment(s): cardiomyopathy with an ejection fraction of 40%, Graves disease, tremors, pulmonary embolism 04/22/2016, squamous cell skin cancer with removal, see Dr Martins H & P, severe fall down flight of steps in 2016-was in ICU w/fx. ribs,pneumonthorax/hemothorax required chest tubes,past resp failure requiring vent/trach. chronic alcoholism Last Myocardial Infarction Date:: October 2016 History of Any Multi-Drug Resistant Organisms: MRSA Date of last positivie culture/infection: 05/24/17 MDRO Source:: bronch/sputum Past Surgical History: Adenoidectomy, Cholecystectomy, Tonsillectomy Additional Past Surgical History / Comment(s): RT HAND SX (TENDON REPAIR).RT THIGH SKIN LESION EXCISION(SQUAMOUS CELL CARCINOMA), functional endoscopic sinus surgery/septoplasty,chest tube/ trach & feeding tube 2016 after a fall, bronchoscopy,cardiac ablation Past Anesthesia/Blood Transfusion Reactions: No Reported Reaction Past Psychological History: Anxiety Additional Psychological History / Comment(s): Pt resides with his brother. He is independent.has a nebulizer. Smoking Status: Former smoker Past Alcohol Use History: Heavy Additional Past Alcohol Use History / Comment(s): started smoking at age 16 has smoked off and on quit 3 weeks ago around december 14 2017. pt admits to drinking 3 -4 times a week 7-12 beers per week Past Drug Use History: None Reported - Past Family History Mother Family Medical History: Cancer, Congestive Heart Failure (CHF), Coronary Artery Disease (CAD), CVA/TIA Additional Family Medical History / Comment(s): Mother had throat cancer and of this at the age of 68yrs. Father Additional Family Medical History / Comment(s): IN [place] WHEN PT WAS 1 YEARS OLD. Medications and Allergies Home Medications Medication Instructions Recorded Confirmed Type Amiodarone HCl [Pacerone] 200 mg PO DAILY 07/23/17 01/03/18 History Budesonide [Pulmicort] 0.5 mg INHALATION RT-BID 07/23/17 01/03/18 History PARoxetine HCL [Paxil] 40 mg PO DAILY 07/23/17 01/03/18 History Primidone [Mysoline] 75 mg PO DAILY 07/23/17 01/03/18 History QUEtiapine [SEROquel] 100 mg PO HS 07/23/17 01/03/18 History Rivaroxaban [Xarelto] 20 mg PO DAILY 07/23/17 01/03/18 History Thiamine [Vitamin B-1] 100 mg PO BID 07/23/17 01/03/18 History Albuterol Inhaler [Ventolin Hfa 2 puff INHALATION RT-Q6H PRN 12/17/17 01/03/18 History Inhaler] Albuterol Nebulized [Ventolin 2.5 mg INHALATION RT-TID 12/17/17 01/03/18 History Nebulized] Atorvastatin [Lipitor] 10 mg PO HS 12/17/17 01/03/18 History Furosemide [Lasix] 40 mg PO DAILY 12/17/17 01/03/18 History Metoprolol Tartrate [Lopressor] 50 mg PO BID 12/17/17 01/03/18 History Pantoprazole [Protonix] 40 mg PO DAILY 12/17/17 01/03/18 History Umeclidinium [place] [Incruse 1 puff INHALATION RT-DAILY 12/17/17 01/03/18 History Ellipta] Budesonide [Pulmicort Flexhaler] 2 puff INHALATION RT-BID 01/03/18 01/03/18 History Allergies Allergy/AdvReac Type Severity Reaction Status Date / Time warfarin [From Coumadin] AdvReac MAKES Verified 01/03/18 17:01 BLOOD TOO THIN Physical Exam Vitals: Vital Signs Temp Pulse Pulse Pulse Pulse Resp BP 01/04/18 11:53 92 75 16 01/04/18 11:42 72 16 01/04/18 11:32 68 16 01/04/18 11:31 16 01/04/18 08:14 74 01/04/18 08:04 72 01/04/18 08:00 97 F L 76 16 01/04/18 04:23 69 01/04/18 04:14 66 01/04/18 04:00 97.2 F L 79 17 01/04/18 00:55 68 01/04/18 00:45 69 01/04/18 00:00 97.2 F L 67 19 01/03/18 23:00 98.9 F 65 20 128/56 01/03/18 22:00 99.0 F 68 20 123/68 01/03/18 21:15 63 20 119/70 01/03/18 20:43 62 20 116/69 01/03/18 20:15 64 20 116/67 01/03/18 19:45 62 20 111/64 01/03/18 19:23 64 20 104/60 01/03/18 19:00 83 20 95/60 01/03/18 18:20 60 20 90/55 01/03/18 18:00 56 L 20 90/56 01/03/18 17:43 54 L 18 88/62 01/03/18 17:33 97.5 F L 54 L 18 81/48 01/03/18 17:09 84 01/03/18 16:56 92 01/03/18 16:45 98 18 71/51 01/03/18 16:35 91 01/03/18 16:17 98.6 F 104 H 18 76/51 BP BP Pulse Ox 01/04/18 11:53 130/95 133/57 01/04/18 11:42 01/04/18 11:32 01/04/18 11:31 01/04/18 08:14 01/04/18 08:04 01/04/18 08:00 137/91 97 01/04/18 04:23 01/04/18 04:14 01/04/18 04:00 119/71 93 L 01/04/18 00:55 01/04/18 00:45 01/04/18 00:00 128/74 99 01/03/18 23:00 95 01/03/18 22:00 95 01/03/18 21:15 95 01/03/18 20:43 95 01/03/18 20:15 94 L 01/03/18 19:45 95 01/03/18 19:23 97 01/03/18 19:00 95 01/03/18 18:20 95 01/03/18 18:00 95 01/03/18 17:43 93 L 01/03/18 17:33 94 L 01/03/18 17:09 01/03/18 16:56 01/03/18 16:45 93 L 01/03/18 16:35 01/03/18 16:17 96 Intake and Output 01/03/18 01/04/18 01/04/18 22:59 06:59 14:59 Intake Total 700 240 Output Total 450 750 Balance 250 -510 Intake: Intake, IV Titration 450 Amount Sodium Chloride 0.9% 1, 450 000 ml @ 75 mls/hr IV . [id number] STA Rx#:[id number] Oral 250 240 Output: Urine 450 750 Other: Voiding Method Urinal Urinal Weight 77.111 kg 80.7 kg PHYSICAL EXAMINATION: GENERAL: The patient is alert and oriented x3, not in any acute distress. Well developed, well nourished. HEENT: Pupils are round and equally reacting to light. EOMI. No scleral icterus. No conjunctival pallor. Normocephalic, atraumatic. No pharyngeal erythema. No thyromegaly. CARDIOVASCULAR: S1 and S2 present. No murmurs, rubs, or gallops. Patient does have elevated JVD and S3 PULMONARY: Chest is clear to auscultation, no wheezing or crackles. ABDOMEN: Soft, nontender, nondistended, normoactive bowel sounds. No palpable organomegaly. MUSCULOSKELETAL: No joint swelling or deformity. EXTREMITIES: No cyanosis, clubbing, or pedal edema. NEUROLOGICAL: Gross neurological examination did not reveal any focal deficits. SKIN: No rashes. Results CBC & Chem 7: 01/04/18 05:30 01/04/18 05:30 Labs: Abnormal Lab Results - Last 24 Hours (Table) 01/03/18 01/03/18 01/03/18 Range/Units 16:30 16:30 16:30 RBC (4.30-5.90) m/uL Hgb 12.5 L (13.0-17.5) gm/dL Hct 38.7 L (39.0-53.0) % RDW 15.7 H (11.5-15.5) % Lymphocytes # (1.0-4.8) k/uL PT (9.0-12.0) sec INR (<1.2) APTT (22.0-30.0) sec Sodium 134 L (137-145) mmol/L Carbon Dioxide 13 L (22-30) mmol/L BUN (9-20) mg/dL Creatinine 1.76 H (0.66-1.25) mg/dL Glucose 119 H (74-99) mg/dL POC Glucose (mg/dL) (75-99) mg/dL Troponin I 0.037 H* (0.000-0.034) ng/mL 01/03/18 01/04/18 01/04/18 Range/Units 16:30 05:30 05:30 RBC 3.96 L (4.30-5.90) m/uL Hgb 11.4 L (13.0-17.5) gm/dL Hct 35.6 L (39.0-53.0) % RDW 15.8 H (11.5-15.5) % Lymphocytes # 0.6 L (1.0-4.8) k/uL PT 15.5 H (9.0-12.0) sec INR 1.7 H (<1.2) APTT 39.3 H (22.0-30.0) sec Sodium 133 L (137-145) mmol/L Carbon Dioxide 20 L (22-30) mmol/L BUN 22 H (9-20) mg/dL Creatinine 1.30 H (0.66-1.25) mg/dL Glucose 210 H (74-99) mg/dL POC Glucose (mg/dL) (75-99) mg/dL Troponin I (0.000-0.034) ng/mL 01/04/18 01/04/18 Range/Units 05:42 11:19 RBC (4.30-5.90) m/uL Hgb (13.0-17.5) gm/dL Hct (39.0-53.0) % RDW (11.5-15.5) % Lymphocytes # (1.0-4.8) k/uL PT (9.0-12.0) sec INR (<1.2) APTT (22.0-30.0) sec Sodium (137-145) mmol/L Carbon Dioxide (22-30) mmol/L BUN (9-20) mg/dL Creatinine (0.66-1.25) mg/dL Glucose (74-99) mg/dL POC Glucose (mg/dL) 228 H 217 H (75-99) mg/dL Troponin I (0.000-0.034) ng/mL Thrombosis Risk Factor Assmnt - Choose All That Apply Each Factor Represents 1 point: Abnormal pulmonary function (COPD), Age 41-60 years Each Risk Factor Represents 3 Points: History of DVT/PE Thrombosis Risk Factor Assessment Total Risk Factor Score: 5 Thrombosis Risk Factor Assessment Level: High Risk Assessment and Plan Plan: -Acute hypoxic respiratory failure secondary to congestive heart failure chronic systolic dysfunction with acute exacerbation patient is on IV Lasix which will be continued -Acute renal failure secondary to congestive heart failure expected to improve with IV Lasix, creatinine improved from 1.6-1.3 -Chronic persistent A. fib, rate controlled continue with amiodarone and beta autumn. -I'll call abuse: Counseling was provided -COPD without any acute exacerbation systemic steroids will be discontinued -Hyponatremia hypervolemic hyponatremia secondary to CHF -Hyperlipidemia
[2018-01-04 16:25] LABS: Glucose,Whole Blood 192 mg/dL (75-99)
[2018-01-04 20:33] LABS: Glucose,Whole Blood 152 mg/dL (75-99)
[2018-01-04] MEDS ORDERED: QUEtiapine 100 MG TAB PO SCH (21:00)
[2018-01-04] MEDS ORDERED: ATORVASTATIN 10 MG TAB PO SCH (21:00)
[2018-01-05] MEDS: IPRATROPIUM-ALBUTEROL 3 ML NEB INHALATION SCH ×3 (03:27→11:05)
[2018-01-05] MEDS: traMADol 50 MG TAB PO PRN ×2 (04:37→10:48)
[2018-01-05 05:37] LABS: Glucose,Whole Blood 138 mg/dL (75-99)
[2018-01-05 06:08] LABS: Basophils % (A) 0 %; Eosinophils % (A) 0 %; HCT 36.6 % (39.0-53.0); HGB 11.5 gm/dL (13.0-17.5); Lymphocytes # (A) 1.2 k/uL (1.0-4.8); Lymphocytes % (A) 15 %; MCH 27.9 pg (25.0-35.0); MCHC 31.5 g/dL (31.0-37.0); MCV 88.7 fL (80.0-100.0); Mean Platelet Volume 6.7; Monocytes # (A) 0.5 k/uL (0-1.0); Monocytes % (A) 6 %; Neutrophils # (A) 6.4 k/uL (1.3-7.7); Neutrophils % (A) 77 %; Platelet Count 242 k/uL (150-450); RBC 4.13 m/uL (4.30-5.90); RDW 15.9 % (11.5-15.5); WBC 8.3 k/uL (3.8-10.6)
[2018-01-05] MEDS: PANTOPRAZOLE 40 MG TABLET PO SCH (06:35)
[2018-01-05 06:55] LABS: Potassium 4.4 mmol/L (3.5-5.1)
[2018-01-05] MEDS: INSULIN ASPART 100 UNIT/ML 1 ML 10 ML VIAL SQ SCH (07:04)
[2018-01-05] MEDS: AMIODARONE 200 MG TAB PO SCH (08:03)
[2018-01-05] MEDS: THIAMINE 100 MG TAB PO SCH (08:03)
[2018-01-05] MEDS: PARoxetine 20 MG TAB PO SCH (08:03)
[2018-01-05] MEDS: PRIMIDONE 25 MG TAB PO SCH (08:03)
[2018-01-05] MEDS: FUROSEMIDE 10 MG/ML 4 ML VIAL IV SCH (08:03)
[2018-01-05] MEDS: METOPROLOL TARTRATE 50 MG TAB PO SCH (08:04)
[2018-01-05] MEDS: RIVAROXABAN 20 MG TAB PO SCH (08:04)
[2018-01-05 08:10] VITALS: BP 136/80; RESP 16; TEMP 97
[2018-01-05 10:58] VITALS: BMI 29.7
[2018-01-05 11:06] LABS: Glucose,Whole Blood 131 mg/dL (75-99)
[2018-01-05 11:15] VITALS: PULSE 72
--- NOTE | 2018-01-05 12:15 | P.PN ---
Subjective Progress Note Date: 01/05/18 This is a 52-year-old gentleman who follows regularly with Dr. Quick in the office, he has history of EtOH abuse, paroxysmal atrial fibrillation for which she under went ablation for atrial flutter by Dr. Martins approximately a week ago, idiopathic cardiomyopathy, COPD, hyperlipidemia, who presents to the hospital on this occasion with symptoms of progressively worsening shortness of breath with associated chest pressure. Patient states that since his ablation he has noticed himself to be quite short of breath when he exerts himself, he sits down and rests and symptoms site, the last few days, even at rest he was getting symptoms. For this reason he came to the emergency room for further evaluation. Just prior to getting on the EMS stretcher, patient states he became quite dizzy and lost consciousness. He did not fall to the ground as EMS workers held onto him. Blood pressure was documented to be low, patient states that he has noticed his blood pressure running a much lower than usual since his ablation procedure. Patient also states that he's had a significant cough of productive yellow sputum for the past couple of days. Chest x-ray does not reveal any active cardiopulmonary disease. EKG shows atrial fibrillation with controlled ventricular response. Blood pressure 120/70, heart rate in the 70s, 93% on room air. White blood cell count 3.9, hemoglobin 11.4, platelet count 183. Sodium 133, potassium 4.6, BUN 22, creatinine 13, creatinine was 1.7 on admission. Magnesium 1.9. Troponins 0.037, 0.013, 0.012. BNP level 28,800.Alcohol level 122 on admission. At the time of my examination this morning, still complains of feeling short of breath, continues to have significant productive cough. Denies any chest pressure this morning. The pressure this morning 137/90 with heart rate in the 70s, 97% on room air, he is afebrile. Patient did have one low grade temperature through the night last night. 01/05/2018 Patient was seen and examined this morning, diuresed well through the night last night. Edema is improved. He states that his breathing is stable, denies any dizziness. Blood pressure 136/80 with a heart rate in the 90s. Patient did have a Echo cardiac gram with Doppler study performed that revealed an ejection fraction of 45%. In normal sinus rhythm today. Objective - Vital Signs Vital signs: Vital Signs Temp 97 F L 01/05/18 08:00 Pulse 72 01/05/18 11:15 Resp 16 01/05/18 08:00 BP 136/80 01/05/18 08:00 Pulse Ox 99 01/05/18 08:00 Intake & Output 01/04/18 01/05/18 01/05/18 18:59 06:59 18:59 Intake Total 758 510 450 Output Total 750 550 Balance 8 -40 450 Weight 78.6 kg 78.6 kg Intake: IV 10 Invasive Line 2 10 Oral 758 500 450 Output: Urine 750 550 Other: Voiding Method Urinal Toilet Toilet Urinal Urinal - Exam PHYSICAL EXAMINATION: GENERAL: 52-year-old gentleman mildly short of breath at the time of my examination HEENT: Head is atraumatic, normocephalic. Pupils equal, round. Sclera anicteric. Conjunctiva are clear. Mucous membranes of the mouth are moist. Neck is supple. There is elevated jugular venous pressure.] bruit is heard. HEART EXAMINATION: Heart S1 and S2 normal CHEST EXAMINATION:. Lungs are clear to auscultation ABDOMEN: Soft, nontender. Bowel sounds are heard. No organomegaly noted. EXTREMITIES: 1+ peripheral pulses with no evidence of peripheral edema and no calf tenderness noted. NEUROLOGIC patient is awake, alert and oriented ?-3. - Labs CBC & Chem 7: 01/05/18 05:52 01/05/18 05:52 Labs: Abnormal Lab Results - Last 24 Hours (Table) 01/04/18 01/04/18 01/05/18 Range/Units 16:22 20:31 05:34 RBC (4.30-5.90) m/uL Hgb (13.0-17.5) gm/dL Hct (39.0-53.0) % RDW (11.5-15.5) % Sodium (137-145) mmol/L BUN (9-20) mg/dL Glucose (74-99) mg/dL POC Glucose (mg/dL) 192 H 152 H 138 H (75-99) mg/dL 01/05/18 01/05/18 01/05/18 Range/Units 05:52 05:52 11:04 RBC 4.13 L (4.30-5.90) m/uL Hgb 11.5 L (13.0-17.5) gm/dL Hct 36.6 L (39.0-53.0) % RDW 15.9 H (11.5-15.5) % Sodium 135 L (137-145) mmol/L BUN 27 H (9-20) mg/dL Glucose 139 H (74-99) mg/dL POC Glucose (mg/dL) 131 H (75-99) mg/dL Assessment and Plan Plan: Assessment and plan #1 systolic congestive heart failure acute on chronic with associated possible tracheobronchitis #2 chronic persistent atrial fibrillation #3 history of typical atrial flutter with recent ablation approximately one week ago #4 EtOH abuse #5 hypertension, hypotensive this admission #6 hyperlipidemia #7 COPD #8 nicotine dependence although patient states he's quit smoking recently #9 recent syncopal episode likely secondary to hypotension. Plan Echo cardiac gram with Doppler study was performed which revealed an ejection fraction of 45%. Patient is currently in normal sinus rhythm. We will discontinue the IV Lasix and put the patient on Lasix 40 mg by mouth twice a day. From cardiology's perspective, patient a be able to be discharged home once cleared by primary and we will make him a follow-up appointment to see Dr. Quick in the office post discharge. DNP note has been reviewed, I agree with a documented findings and plan of care. Patient was seen and examined.
--- NOTE | 2018-01-05 16:45 | P.DS ---
Providers Date of admission: 01/03/18 21:05 Attending physician: Nicole Grider Consults: 01/03/18 21:08 Consult Physician Routine Consulting Provider: Mikael Martins Consult Reason/Comments: Chronic A. fib, hypotensive episode, CHF Do you want consulting provider notified?: Yes Primary care physician: [facility] Course: 52-year-old the history of atrial fibrillation, history of nonischemic myopathy ejection fraction of 30-35% came in with complaints of shortness of breath orthopnea unsure about proximal nocturnal dyspnea. Patient is not wheezing patient does have crackles does have elevated JVD was started on Lasix with improvement in creatinine has elevated BNP of 28,000. Alcohol level of 122 patient denied any chest pain. Patient shortness of breath improved patient is not in COPD exacerbation patient had a recent the ablation procedure for atrial flutter 01/05/2018 Patient is presently euvolemic pulmonary edema resolved patient kidney function improved serum sodium improved. Patient will be discharged today in stable medical condition to home patient had another echocardiogram which showed improved ejection fraction of around 40-45%. PHYSICAL EXAMINATION: GENERAL: The patient is alert and oriented x3, not in any acute distress. Well developed, well nourished. HEENT: Pupils are round and equally reacting to light. EOMI. No scleral icterus. No conjunctival pallor. Normocephalic, atraumatic. No pharyngeal erythema. No thyromegaly. CARDIOVASCULAR: S1 and S2 present. No murmurs, rubs, or gallops. PULMONARY: Chest is clear to auscultation, no wheezing or crackles. ABDOMEN: Soft, nontender, nondistended, normoactive bowel sounds. No palpable organomegaly. MUSCULOSKELETAL: No joint swelling or deformity. EXTREMITIES: No cyanosis, clubbing, or pedal edema. NEUROLOGICAL: Gross neurological examination did not reveal any focal deficits. SKIN: No rashes. Assessment and Plan Plan: -Acute hypoxic respiratory failure secondary to congestive heart failure chronic systolic dysfunction with acute exacerbation -Acute renal failure secondary to congestive heart failure improved now and presently 1.1 -Chronic persistent A. fib, rate controlled continue with amiodarone and beta autumn. -Alcohol abuse: Counseling was provided -COPD without any acute exacerbation systemic steroids will be discontinued -Hyponatremia hypervolemic hyponatremia secondary to CHF, improved with IV Lasix -Hyperlipidemia Patient Condition at Discharge: Stable Plan - Discharge Summary Discharge Rx Participant: Yes New Discharge Prescriptions: New Lisinopril [Zestril] 5 mg PO DAILY #30 tab Continue Rivaroxaban [Xarelto] 20 mg PO DAILY Thiamine [Vitamin B-1] 100 mg PO BID QUEtiapine [SEROquel] 100 mg PO HS Primidone [Mysoline] 75 mg PO DAILY PARoxetine HCL [Paxil] 40 mg PO DAILY Amiodarone HCl [Pacerone] 200 mg PO DAILY Budesonide [Pulmicort] 0.5 mg INHALATION RT-BID Albuterol Inhaler [Ventolin Hfa Inhaler] 2 puff INHALATION RT-Q6H PRN PRN Reason: Shortness Of Breath Atorvastatin [Lipitor] 10 mg PO HS Metoprolol Tartrate [Lopressor] 50 mg PO BID Umeclidinium [place] [Incruse Ellipta] 1 puff INHALATION RT-DAILY Pantoprazole [Protonix] 40 mg PO DAILY Albuterol Nebulized [Ventolin Nebulized] 2.5 mg INHALATION RT-TID Budesonide [Pulmicort Flexhaler] 2 puff INHALATION RT-BID Changed Furosemide [Lasix] 40 mg PO BID #0 Discharge Medication List Amiodarone HCl [Pacerone] 200 mg PO DAILY 07/23/17 [History] Budesonide [Pulmicort] 0.5 mg INHALATION RT-BID 07/23/17 [History] PARoxetine HCL [Paxil] 40 mg PO DAILY 07/23/17 [History] Primidone [Mysoline] 75 mg PO DAILY 07/23/17 [History] QUEtiapine [SEROquel] 100 mg PO HS 07/23/17 [History] Rivaroxaban [Xarelto] 20 mg PO DAILY 07/23/17 [History] Thiamine [Vitamin B-1] 100 mg PO BID 07/23/17 [History] Albuterol Inhaler [Ventolin Hfa Inhaler] 2 puff INHALATION RT-Q6H PRN 12/17/17 [ History] Albuterol Nebulized [Ventolin Nebulized] 2.5 mg INHALATION RT-TID 12/17/17 [ History] Atorvastatin [Lipitor] 10 mg PO HS 12/17/17 [History] Metoprolol Tartrate [Lopressor] 50 mg PO BID 12/17/17 [History] Pantoprazole [Protonix] 40 mg PO DAILY 12/17/17 [History] Umeclidinium [place] [Incruse Ellipta] 1 puff INHALATION RT-DAILY 12/17/17 [ History] Budesonide [Pulmicort Flexhaler] 2 puff INHALATION RT-BID 01/03/18 [History] Furosemide [Lasix] 40 mg PO BID #0 01/05/18 [Rx] Lisinopril [Zestril] 5 mg PO DAILY #30 tab 01/05/18 [Rx] Follow up Appointment(s)/Referral(s): Salma Ricardo FNPBC [REFERRING] - 01/12/18 1:15 pm (Wednesday) [facility], [NON-STAFF] - As Needed Dariel Quick MD [STAFF PHYSICIAN] - 01/14/18 11:00 am Ambulatory/Diagnostic Orders: Basic Metabolic Panel [LAB.AMB] Time Frame: 3 Days, Location: None Selected Patient Instructions/Handouts: COPD (Chronic Obstructive Pulmonary Disease) (DC ) Discharge Disposition: HOME WITH HOME HEALTH SERVICES
== END 2018-01-05 12:31 | disposition home health service (06) | DRG 291 ==
LOC: EC 16:06 → 6SEL 21:05
PROVIDERS: ADMIT Hospitalist; ATTEND Hospitalist
DX: I11.0 Hypertensive heart disease with heart failure (principal); J96.01 Acute respiratory failure with hypoxia; E87.1 Hypo-osmolality and hyponatremia; J44.1 Chronic obstructive pulmonary disease with (acute) exacerbation; N17.9 Acute kidney failure, unspecified; E78.5 Hyperlipidemia, unspecified; F17.210 Nicotine dependence, cigarettes, uncomplicated; F41.9 Anxiety disorder, unspecified; I25.2 Old myocardial infarction; I42.8 Other cardiomyopathies; I48.2 Chronic atrial fibrillation; I50.23 Acute on chronic systolic (congestive) heart failure; E05.00 Thyrotoxicosis with diffuse goiter without thyrotoxic crisis or storm; F10.20 Alcohol dependence, uncomplicated; I95.9 Hypotension, unspecified; R55 Syncope and collapse; Z79.01 Long term (current) use of anticoagulants; Z79.899 Other long term (current) drug therapy; Z88.8 Allergy status to other drugs, medicaments and biological substances; Z86.711 Personal history of pulmonary embolism; Z85.828 Personal history of other malignant neoplasm of skin; Z87.01 Personal history of pneumonia (recurrent); Z71.41 Alcohol abuse counseling and surveillance of alcoholic; Z86.14 Personal history of Methicillin resistant Staphylococcus aureus infection; Z90.49 Acquired absence of other specified parts of digestive tract; Y90.6 Blood alcohol level of 120-199 mg/100 ml
CPT/HCPCS: 36415; 71046; 80048; 80053; 80320; 82150; 82550; 82553; 83690; 83735; 83880; 84484; 85025; 85610; 85730; 93005; 93306; 94640; 96360; 96361; 96374; 96375; 99291

== ENCOUNTER 2018-01-27 20:07 | Observation (INO) | payer OTHER ==
--- NOTE | 2018-01-27 21:02 | ED ---
Arrhythmia/Palpitations HPI - General Chief Complaint: Arrhythmia/Palpitations Stated Complaint: Chest Pain Time Seen by Provider: 01/27/18 21:01 Source: patient Mode of arrival: wheelchair Limitations: no limitations - History of Present Illness Initial Comments: Stone is a 52-year-old male with extensive past medical history most significant for significant cardiomyopathy with atrial fibrillation, [place] in the past, known coronary artery disease as well as a history of pulmonary embolism. Patient is currently on Cipro toe. Patient presents to the emergency department today for burning pain left side of his chest. Patient states that the pain again around 5 AM today, pain persisted throughout the day with no relieving or exacerbating factors. Patient did not attempt any medications at home for relief of the pain. Associated with some diaphoresis, significant anxiety and feeling as though he is very lightheaded when he stands. Patient denies any recent illness including cough, congestion, URI symptoms, fever, chills, nausea or vomiting. She does admit that he falls frequently but doesn't believe he's had an injury to that side of the chest wall. He does have a bruise on his anterior chest wall which she cannot recall how he got it. He is very tender to palpation in this general area. Patient states that he has paroxysmal atrial fibrillation, he underwent an ablation on December 23 and was advised he needed a repeat ablation. Patient does not believe he is always in atrial fibrillation but was noted to be in A. fib upon arrival here. - Related Data Home Medications Medication Instructions Recorded Confirmed Amiodarone HCl [Pacerone] 200 mg PO DAILY 07/23/17 01/03/18 Budesonide [Pulmicort] 0.5 mg INHALATION RT-BID 07/23/17 01/03/18 PARoxetine HCL [Paxil] 40 mg PO DAILY 07/23/17 01/03/18 Primidone [Mysoline] 75 mg PO DAILY 07/23/17 01/03/18 QUEtiapine [SEROquel] 100 mg PO HS 07/23/17 01/03/18 Rivaroxaban [Xarelto] 20 mg PO DAILY 07/23/17 01/03/18 Thiamine [Vitamin B-1] 100 mg PO BID 07/23/17 01/03/18 Albuterol Inhaler [Ventolin Hfa 2 puff INHALATION RT-Q6H PRN 12/17/17 01/03/18 Inhaler] Albuterol Nebulized [Ventolin 2.5 mg INHALATION RT-TID 12/17/17 01/03/18 Nebulized] Atorvastatin [Lipitor] 10 mg PO HS 12/17/17 01/03/18 Metoprolol Tartrate [Lopressor] 50 mg PO BID 12/17/17 01/03/18 Pantoprazole [Protonix] 40 mg PO DAILY 12/17/17 01/03/18 Umeclidinium [place] [Incruse 1 puff INHALATION RT-DAILY 12/17/17 01/03/18 Ellipta] Budesonide [Pulmicort Flexhaler] 2 puff INHALATION RT-BID 01/03/18 01/03/18 Previous Rx's Medication Instructions Recorded Furosemide [Lasix] 40 mg PO BID #0 01/05/18 Lisinopril [Zestril] 5 mg PO DAILY #30 tab 01/05/18 Allergies Allergy/AdvReac Type Severity Reaction Status Date / Time warfarin [From Coumadin] AdvReac MAKES Verified 01/03/18 17:01 BLOOD TOO THIN Review of Systems ROS Statement: Those systems with pertinent positive or pertinent negative responses have been documented in the HPI. ROS Other: All systems not noted in ROS Statement are negative. Past Medical History Past Medical History: Atrial Fibrillation, Atrial Flutter, Cancer, Chest Pain / Angina, Heart Failure, COPD, Hyperlipidemia, Hypertension, Myocardial Infarction ([place]), Pneumonia, Pulmonary Embolus ([place]), Syncope, Thyroid Disorder Additional Past Medical History / Comment(s): cardiomyopathy with an ejection fraction of 40%, Graves disease, tremors, pulmonary embolism 04/22/2016, squamous cell skin cancer with removal, see Dr Martins [facility] & [facility], severe fall down flight of steps in 2016-was in ICU w/fx. ribs,pneumonthorax/hemothorax required chest tubes,past resp failure requiring vent/trach. chronic alcoholism Last Myocardial Infarction Date:: October 2016 History of Any Multi-Drug Resistant Organisms: MRSA Date of last positivie culture/infection: 05/24/17 MDRO Source:: bronch/sputum Past Surgical History: Adenoidectomy, Cholecystectomy, Tonsillectomy Additional Past Surgical History / Comment(s): RT HAND SX (TENDON REPAIR).RT THIGH SKIN LESION EXCISION(SQUAMOUS CELL CARCINOMA), functional endoscopic sinus surgery/septoplasty,chest tube/ trach & feeding tube 2016 after a fall, bronchoscopy,cardiac ablation Past Anesthesia/Blood Transfusion Reactions: No Reported Reaction Past Psychological History: Anxiety Smoking Status: Former smoker Past Alcohol Use History: Heavy Past Drug Use History: None Reported - Past Family History Mother Family Medical History: Cancer, Congestive Heart Failure (CHF), Coronary Artery Disease (CAD), CVA/TIA Additional Family Medical History / Comment(s): Mother had throat cancer and of this at the age of 68yrs. Father Additional Family Medical History / Comment(s): IN [place] WHEN PT WAS 2 YEARS OLD. General Exam Limitations: no limitations General appearance: alert, in no apparent distress Head exam: Present: atraumatic, normocephalic Eye exam: Present: PERRL ENT exam: Present: normal exam Respiratory exam: Present: chest wall tenderness, other (Crackles bilaterally) Cardiovascular Exam: Present: regular rate, irregular rhythm GI/Abdominal exam: Present: soft. Absent: distended Rectal exam: Present: deferred Extremities exam: Present: full ROM, normal capillary refill. Absent: pedal edema Back exam: Present: full ROM. Absent: CVA tenderness (R), CVA tenderness (L) Neurological exam: Present: alert, oriented X3 Psychiatric exam: Present: normal affect, normal mood Skin exam: Present: warm, intact Course Vital Signs 01/27/18 01/27/18 01/28/18 20:34 22:41 00:57 Temperature 98.8 F 98.2 F Pulse Rate 96 85 80 Respiratory 24 18 18 Rate Blood Pressure 110/69 128/82 O2 Sat by Pulse 97 100 99 Oximetry 01/28/18 03:21 Temperature Pulse Rate 80 Respiratory 18 Rate Blood Pressure 142/86 O2 Sat by Pulse 98 Oximetry EKG Findings - EKG Comments: EKG Findings:: EKG obtained at 2044 rate is 78, rhythm irregularly irregular consistent with is atrial fibrillation, there is normal axis, was 106, QTC is 460, there are no acute ST elevations or depressions no evidence of acute ischemia or infarction. Medical Decision Making - Medical Decision Making The patient was seen and evaluated, history is obtained from the patient Patient with history of paroxysmal atrial fibrillation underwent an ablation in December, presenting with chest pain, palpitations, lightheadedness and diaphoresis at home and he is in atrial fibrillation again Cardiac workup was ordered EKG did reveal atrial fibrillation Troponin was negative, chest x-ray with no acute pathology Patient describes his chest pain as a burning left-sided chest pain, nonexertional - however due to his age and history of smoking will admit for evaluation by cardiology. In addition the patient has had an ablation and doesn 't believe that he is usually in atrial fibrillation though he does state that he is on oral anticoagulation. No indication for IV heparin at this time. Patient was admitted and cardiology was consulted. Patient is being held in the emergency department awaiting a bed on the cardiology floor. Patient having some difficulty sleeping due to the loud environment the emergency department. One by mouth Ativan was ordered for the patient. - Lab Data Result diagrams: 01/27/18 20:51 01/27/18 20:51 Lab Results 01/27/18 01/27/18 01/27/18 Range/Units 20:51 20:51 20:51 WBC 3.5 L (3.8-10.6) k/uL RBC 4.18 L (4.30-5.90) m/uL Hgb 12.0 L (13.0-17.5) gm/dL Hct 36.4 L (39.0-53.0) % MCV 87.1 (80.0-100.0) fL MCH 28.8 (25.0-35.0) pg MCHC 33.0 (31.0-37.0) g/dL RDW 15.6 H (11.5-15.5) % Plt Count 123 L (150-450) k/uL Neutrophils % 44 % Lymphocytes % 40 % Monocytes % 10 % Eosinophils % 2 % Basophils % 0 % Neutrophils # 1.5 (1.3-7.7) k/uL Lymphocytes # 1.4 (1.0-4.8) k/uL Monocytes # 0.3 (0-1.0) k/uL Eosinophils # 0.1 (0-0.7) k/uL Basophils # 0.0 (0-0.2) k/uL PT (9.0-12.0) sec INR (<1.2) APTT (22.0-30.0) sec Sodium 131 L (137-145) mmol/L Potassium 4.2 (3.5-5.1) mmol/L Chloride 99 (98-107) mmol/L Carbon Dioxide 23 (22-30) mmol/L Anion Gap 9 mmol/L BUN 18 (9-20) mg/dL Creatinine 1.24 (0.66-1.25) mg/dL Est GFR (CKD-EPI)AfAm 76 (>60 ml/min/1.73 sqM) Est GFR (CKD-EPI)NonAf 66 (>60 ml/min/1.73 sqM) Glucose 114 H (74-99) mg/dL Calcium 8.4 (8.4-10.2) mg/dL Magnesium 1.6 (1.6-2.3) mg/dL Total Bilirubin 0.5 (0.2-1.3) mg/dL AST 55 (17-59) U/L ALT 86 H (21-72) U/L Alkaline Phosphatase 107 (38-126) U/L Total Creatine Kinase 60 (55-170) U/L CK-MB (CK-2) 1.3 (0.0-2.4) ng/mL CK-MB (CK-2) Rel Index 2.2 Troponin I <0.012 (0.000-0.034) ng/mL Total Protein 6.6 (6.3-8.2) g/dL Albumin 3.5 (3.5-5.0) g/dL TSH 3.870 (0.465-4.680) mIU/L Urine Opiates Screen (NotDetected) Ur Oxycodone Screen (NotDetected) Urine Methadone Screen (NotDetected) Ur Propoxyphene Screen (NotDetected) Ur Barbiturates Screen (NotDetected) U Tricyclic Antidepress (NotDetected) Ur Phencyclidine Scrn (NotDetected) Ur Amphetamines Screen (NotDetected) U Methamphetamines Scrn (NotDetected) U Benzodiazepines Scrn (NotDetected) Urine Cocaine Screen (NotDetected) U Marijuana (THC) Screen (NotDetected) 01/27/18 01/27/18 Range/Units 20:51 21:30 WBC (3.8-10.6) k/uL RBC (4.30-5.90) m/uL Hgb (13.0-17.5) gm/dL Hct (39.0-53.0) % MCV (80.0-100.0) fL MCH (25.0-35.0) pg MCHC (31.0-37.0) g/dL RDW (11.5-15.5) % Plt Count (150-450) k/uL Neutrophils % % Lymphocytes % % Monocytes % % Eosinophils % % Basophils % % Neutrophils # (1.3-7.7) k/uL Lymphocytes # (1.0-4.8) k/uL Monocytes # (0-1.0) k/uL Eosinophils # (0-0.7) k/uL Basophils # (0-0.2) k/uL PT 12.6 H (9.0-12.0) sec INR 1.3 H (<1.2) APTT 33.4 H (22.0-30.0) sec Sodium (137-145) mmol/L Potassium (3.5-5.1) mmol/L Chloride (98-107) mmol/L Carbon Dioxide (22-30) mmol/L Anion Gap mmol/L BUN (9-20) mg/dL Creatinine (0.66-1.25) mg/dL Est GFR (CKD-EPI)AfAm (>60 ml/min/1.73 sqM) Est GFR (CKD-EPI)NonAf (>60 ml/min/1.73 sqM) Glucose (74-99) mg/dL Calcium (8.4-10.2) mg/dL Magnesium (1.6-2.3) mg/dL Total Bilirubin (0.2-1.3) mg/dL AST (17-59) U/L ALT (21-72) U/L Alkaline Phosphatase (38-126) U/L Total Creatine Kinase (55-170) U/L CK-MB (CK-2) (0.0-2.4) ng/mL CK-MB (CK-2) Rel Index Troponin I (0.000-0.034) ng/mL Total Protein (6.3-8.2) g/dL Albumin (3.5-5.0) g/dL TSH (0.465-4.680) mIU/L Urine Opiates Screen Not Detected (NotDetected) Ur Oxycodone Screen Not Detected (NotDetected) Urine Methadone Screen Not Detected (NotDetected) Ur Propoxyphene Screen Not Detected (NotDetected) Ur Barbiturates Screen Not Detected (NotDetected) U Tricyclic Antidepress Detected H (NotDetected) Ur Phencyclidine Scrn Not Detected (NotDetected) Ur Amphetamines Screen Not Detected (NotDetected) U Methamphetamines Scrn Not Detected (NotDetected) U Benzodiazepines Scrn Not Detected (NotDetected) Urine Cocaine Screen Not Detected (NotDetected) U Marijuana (THC) Screen Not Detected (NotDetected) Disposition Clinical Impression: Atrial fibrillation, Pleuritic chest pain, Chest pain Disposition: ADMITTED IP TO THIS HOSP Decision Time: 22:30
[2018-01-27] MEDS ORDERED: SODIUM CHLORIDE 0.9% 1,000 ML IV STA (21:11)
[2018-01-27] MEDS ORDERED: ASPIRIN 81 MG PO STA (21:11)
[2018-01-27 21:20] LABS: Basophils % (A) 0 %; Eosinophils # (A) 0.1 k/uL (0-0.7); Eosinophils % (A) 2 %; HCT 36.4 % (39.0-53.0); Lymphocytes # (A) 1.4 k/uL (1.0-4.8); Lymphocytes % (A) 40 %; MCH 28.8 pg (25.0-35.0); MCV 87.1 fL (80.0-100.0); Mean Platelet Volume 6.7; Monocytes # (A) 0.3 k/uL (0-1.0); Monocytes % (A) 10 %; Neutrophils # (A) 1.5 k/uL (1.3-7.7); Neutrophils % (A) 44 %; Platelet Count 123 k/uL (150-450); RBC 4.18 m/uL (4.30-5.90); RDW 15.6 % (11.5-15.5); WBC 3.5 k/uL (3.8-10.6)
[2018-01-27 21:29] LABS: INR 1.3 (<1.2); Partial Thromboplastin Time 33.4 sec (22.0-30.0); Prothrombin Time 12.6 sec (9.0-12.0)
[2018-01-27 21:31] LABS: Albumin 3.5 g/dL (3.5-5.0); Calcium 8.4 mg/dL (8.4-10.2); Magnesium 1.6 mg/dL (1.6-2.3); Potassium 4.2 mmol/L (3.5-5.1); Total Bilirubin 0.5 mg/dL (0.2-1.3); Total Protein 6.6 g/dL (6.3-8.2)
[2018-01-27 21:36] LABS: Creatine Kinase 60 U/L (55-170)
[2018-01-27 21:50] LABS: Creatine Kinase MB 1.3 ng/mL (0.0-2.4); Troponin I <0.012 ng/mL (0.000-0.034)
--- NOTE | 2018-01-27 21:52 | XR ---
EXAMINATION TYPE: XR chest 2V DATE OF EXAM: 01/27/2018 COMPARISON: 01/03/2018 HISTORY: Dysrhythmia TECHNIQUE: Frontal and lateral views of the chest are obtained. FINDINGS: Heart and mediastinum are normal. There are multiple old right-sided healed rib fractures. Lungs are clear of consolidation. There is no pleural effusion. The bony thorax is intact. IMPRESSION: No active cardiopulmonary disease. No change.
[2018-01-27 21:54] LABS: Amphetamine Screen,Urine Not Detected (NotDetected); Barbiturate Screen,Urine Not Detected (NotDetected); Benzodiazepines Screen,Urine Not Detected (NotDetected); Cocaine Screen,Urine Not Detected (NotDetected); Methadone Screen, Urine Not Detected (NotDetected); Opiate Screen,Urine Not Detected (NotDetected); Oxycodone Screen, Urine Not Detected (NotDetected); Phencyclidine Screen,Urine Not Detected (NotDetected); Tricyclic Antidepressant,Urine Detected (NotDetected); Urn Cannabinoid Scrn Not Detected (NotDetected)
[2018-01-27] MEDS ORDERED: NALOXONE 0.4 MG/ML 1 ML VIAL IV PRN (22:32)
[2018-01-27] MEDS ORDERED: ACETAMINOPHEN TAB 325 MG TAB PO PRN (22:32)
[2018-01-27] MEDS ORDERED: IBUPROFEN 400 MG TAB PO PRN (22:32)
[2018-01-27] MEDS ORDERED: NITROGLYCERIN SL TABS 0.4 MG TAB SUBLINGUAL PRN (22:33)
[2018-01-28] MEDS ORDERED: LORazepam 1 MG TAB PO STA (02:23)
[2018-01-28] MEDS: SODIUM CHLORIDE 0.9% 1,000 ML IV SCH ×2 (02:28→23:27)
[2018-01-28 03:08] LABS: Cholesterol 163 mg/dL (<200); HDL Cholesterol 96 mg/dL (40-60); LDL Cholesterol,Calculated 45 mg/dL (0-99); Triglycerides 111 mg/dL (<150)
[2018-01-28 03:13] LABS: Creatine Kinase 58 U/L (55-170)
[2018-01-28 03:25] LABS: Creatine Kinase MB 1.5 ng/mL (0.0-2.4); Troponin I <0.012 ng/mL (0.000-0.034)
[2018-01-28] MEDS ORDERED: ALBUTEROL INHALER 60 PUFF/8 GM INHALER INHALATION PRN (06:20)
[2018-01-28] MEDS: AMIODARONE 200 MG TAB PO SCH (08:58)
[2018-01-28] MEDS: ASPIRIN 325 MG TAB PO SCH (08:58)
[2018-01-28] MEDS: FUROSEMIDE 40 MG TAB PO SCH ×2 (08:59→20:58)
[2018-01-28] MEDS: METOPROLOL TARTRATE 50 MG TAB PO SCH ×2 (08:59→20:58)
[2018-01-28] MEDS: LISINOPRIL 5 MG TAB PO SCH (08:59)
[2018-01-28] MEDS: RIVAROXABAN 20 MG TAB PO SCH (08:59)
[2018-01-28] MEDS: ALBUTEROL NEBULIZED 2.5 MG/3 ML INHALATION SCH ×3 (09:14→19:24)
[2018-01-28 10:40] LABS: Creatine Kinase 63 U/L (55-170)
[2018-01-28 10:52] LABS: Creatine Kinase MB 1.9 ng/mL (0.0-2.4); Troponin I <0.012 ng/mL (0.000-0.034)
[2018-01-28 11:19] VITALS: RESP 18
[2018-01-28] MEDS: IPRATROPIUM 0.5 MG/2.5 ML NEBU INHALATION SCH ×2 (16:26→19:30)
--- NOTE | 2018-01-28 17:21 | P.HPIM ---
History of Present Illness H&P Date: 01/28/18 Chief Complaint: Chest pain Patient is a 52-year-old male with a known history of atrial fibrillation on anticoagulation, nonischemic cardio myopathy ejection fraction 30-35%, History of cardiac ablation and pulmonary embolism in April 2016 and multiple other medical problems came to ER with complaints of chest pain. Chest pain is mainly left retrosternal and associated with shortness of breath and burning sensation. Pain gets worse with deep breathing sometimes. Pain has been constant since admission. Patient also complaining of dizziness. And felt heart racing of fast and sweating. Patient says that he has been having cough since last tracheostomy in April 2017. Denied any worsening cough or sputum production. Otherwise denied any recent illnesses. No fever no chills. Patient does have a history of paroxysmal atrial fibrillation and underwent ablation in December and advised he needs a repeat ablation. Chest x-ray showed no acute cardio pulmonary process EKG showed atrial fibrillation Review of Systems Constitutional: Patient denies any fever or chills . No generalized weakness or weight loss. Abdomen: Patient denied nausea vomiting and diarrhea and abdominal pain. Cardiovascular: Patient does have left-sided chest pain associated with short of breath. And palpitations.. Respiratory: patient denied any cough is from production. No shortness of breath Neurologic: Patient denied any numbness or tingling headache. Musculoskeletal: Patient denies any complaints of joint swelling or deformity. Skin: Negative Psychiatric: Negative Endocrine: No heat or cold intolerance. No recent weight gain. Genitourinary: No dysuria or hematuria. All other 14 point ROS negative except the above Past Medical History Past Medical History: Atrial Fibrillation, Atrial Flutter, Cancer, Chest Pain / Angina, Heart Failure, COPD, Hyperlipidemia, Hypertension, Myocardial Infarction ([place]), Pneumonia, Pulmonary Embolus (PE), Syncope, Thyroid Disorder Additional Past Medical History / Comment(s): Nonischemic cardiomyopathy with an ejection fraction of 30-35%, Graves disease, tremors, pulmonary embolism 02/2016, squamous cell skin cancer with removal, severe fall down flight of steps in 2016-was in ICU w/fx. ribs,pneumonthorax/hemothorax required chest tubes,past resp failure requiring vent/trach. chronic alcoholism Last Myocardial Infarction Date:: October 2016 History of Any Multi-Drug Resistant Organisms: MRSA Date of last positivie culture/infection: 05/24/17 MDRO Source:: bronch/sputum Past Surgical History: Adenoidectomy, Cholecystectomy, Tonsillectomy Additional Past Surgical History / Comment(s): 12/23/17 cardiac ablation for aflutter and needs another ablation for A fib, RT HAND SX (TENDON REPAIR).RT THIGH SKIN LESION EXCISION(SQUAMOUS CELL CARCINOMA), functional endoscopic sinus surgery/septoplasty,chest tube/ trach & feeding tube 2016 after a fall, bronchoscopy. Past Anesthesia/Blood Transfusion Reactions: No Reported Reaction Smoking Status: Current every day smoker - Past Family History Mother Family Medical History: Cancer, Congestive Heart Failure (CHF), Coronary Artery Disease (CAD), CVA/TIA Additional Family Medical History / Comment(s): Mother had throat cancer and of this at the age of 68yrs. Father Additional Family Medical History / Comment(s): IN [place] WHEN PT WAS 1 YEARS OLD. Medications and Allergies Home Medications Medication Instructions Recorded Confirmed Type Amiodarone HCl [Pacerone] 200 mg PO DAILY 07/23/17 01/28/18 History Budesonide [Pulmicort] 0.5 mg INHALATION RT-BID 07/23/17 01/28/18 History PARoxetine HCL [Paxil] 40 mg PO DAILY 07/23/17 01/28/18 History Primidone [Mysoline] 75 mg PO DAILY 07/23/17 01/28/18 History QUEtiapine [SEROquel] 100 mg PO HS 07/23/17 01/28/18 History Rivaroxaban [Xarelto] 20 mg PO DAILY 07/23/17 01/28/18 History Thiamine [Vitamin B-1] 100 mg PO BID 07/23/17 01/28/18 History Albuterol Inhaler [Ventolin Hfa 2 puff INHALATION RT-Q6H PRN 12/17/17 01/28/18 History Inhaler] Albuterol Nebulized [Ventolin 2.5 mg INHALATION RT-TID 12/17/17 01/28/18 History Nebulized] Atorvastatin [Lipitor] 10 mg PO HS 12/17/17 01/28/18 History Metoprolol Tartrate [Lopressor] 50 mg PO BID 12/17/17 01/28/18 History Pantoprazole [Protonix] 40 mg PO DAILY 12/17/17 01/28/18 History Umeclidinium [place] [Incruse 1 puff INHALATION RT-DAILY 12/17/17 01/28/18 History Ellipta] Budesonide [Pulmicort Flexhaler] 2 puff INHALATION RT-BID 01/03/18 01/28/18 History Furosemide [Lasix] 40 mg PO BID #0 01/05/18 01/28/18 Rx Lisinopril [Zestril] 5 mg PO DAILY #30 tab 01/05/18 01/28/18 Rx Allergies Allergy/AdvReac Type Severity Reaction Status Date / Time warfarin [From Coumadin] AdvReac MAKES Verified 01/28/18 10:25 BLOOD TOO THIN Physical Exam Vitals: Vital Signs Temp Pulse Pulse Resp BP BP Pulse Ox 01/28/18 12:00 64 18 01/28/18 11:30 97.5 F L 64 18 154/91 95 01/28/18 11:18 97.9 F 65 18 149/75 100 01/28/18 09:29 67 01/28/18 09:15 65 01/28/18 08:56 97.9 F 65 20 144/83 99 01/28/18 06:00 60 142/98 98 01/28/18 03:21 80 18 142/86 98 01/28/18 00:57 80 18 99 01/27/18 22:41 98.2 F 85 18 128/82 100 01/27/18 20:34 98.8 F 96 24 110/69 97 Intake and Output 01/27/18 01/28/18 01/28/18 22:59 06:59 14:59 Other: Voiding Method Toilet Urinal Weight 74.843 kg 80.6 kg PHYSICAL EXAMINATION: Patient is lying in the bed comfortably, no acute distress, awake alert and oriented.. HEENT: Normocephalic. Neck is supple. Pupils reactive. Nostrils clear. Oral cavity is moist. Ears reveal no drainage. Neck reveals no JVD, carotid bruits, or thyromegaly. CHEST EXAMINATION: Trachea is central. Symmetrical expansion. Lung dewitt clear to auscultation and percussion. CARDIAC: Normal S1, S2 with no gallops. No murmurs . Irregular rhythm. ABDOMEN: Soft. Bowel sounds normal. No organomegaly. No abdominal bruits. Extremities: reveal no edema. No clubbing or cyanosis Neurologically awake, alert, oriented x3 with well-coordinated movements. No focal deficits noted Skin: No rash or skin lesions. Psychiatric: Coperative. Nonsuicidal Musculoskeletal: No joint swelling or deformity. Normal range of motion. Results CBC & Chem 7: 01/27/18 20:51 01/27/18 20:51 Labs: Abnormal Lab Results - Last 24 Hours (Table) 01/27/18 01/27/18 01/27/18 Range/Units 20:51 20:51 20:51 WBC 3.5 L (3.8-10.6) k/uL RBC 4.18 L (4.30-5.90) m/uL Hgb 12.0 L (13.0-17.5) gm/dL Hct 36.4 L (39.0-53.0) % RDW 15.6 H (11.5-15.5) % Plt Count 123 L (150-450) k/uL PT 12.6 H (9.0-12.0) sec INR 1.3 H (<1.2) APTT 33.4 H (22.0-30.0) sec Sodium 131 L (137-145) mmol/L Glucose 114 H (74-99) mg/dL ALT 86 H (21-72) U/L HDL Cholesterol (40-60) mg/dL U Tricyclic Antidepress (NotDetected) 01/27/18 01/28/18 Range/Units 21:30 02:41 WBC (3.8-10.6) k/uL RBC (4.30-5.90) m/uL Hgb (13.0-17.5) gm/dL Hct (39.0-53.0) % RDW (11.5-15.5) % Plt Count (150-450) k/uL PT (9.0-12.0) sec INR (<1.2) APTT (22.0-30.0) sec Sodium (137-145) mmol/L Glucose (74-99) mg/dL ALT (21-72) U/L HDL Cholesterol 96 H (40-60) mg/dL U Tricyclic Antidepress Detected H (NotDetected) Thrombosis Risk Factor Assmnt - DVT/VTE Prophylaxis DVT/VTE Prophylaxis: Pharmacologic Prophylaxis ordered - Choose All That Apply Any of the Below Risk Factors Present?: Yes Each Factor Represents 1 point: Age 41-60 years, Heart failure (<1month), Obesity (BMI >25) Other Risk Factors: Yes Each Risk Factor Represents 2 Points: Malignancy Each Risk Factor Represents 3 Points: History of DVT/PE Other congenital or acquired thrombophilia - If yes, enter type in comment: No Thrombosis Risk Factor Assessment Total Risk Factor Score: 8 Thrombosis Risk Factor Assessment Level: High Risk Assessment and Plan Assessment: Chest pain/angina. Rule out acute coronary syndrome. Paroxysmal atrial fibrillation/atrial flutter with history of cardiac ablation in December 2017 Dizziness and palpitations and sweating History of PE on anticoagulation COPD Hypertension Hyperlipidemia History of [place] Hypothyroidism Nonischemic cardiac myopathy ejection fraction 30 to the [place] Chronic CHF with systolic dysfunction History of Graves' disease Squamous cell cancer of the skin with removal Currently everyday smoker Plan: Patient will be continued on telemetry monitoring. Continue with serial EKGs and troponins. Cardiology and EP evaluation. Continue with home medications and follow closely. Further recommendations based on the clinical course. Time with Patient: Greater than 30
[2018-01-28] MEDS: BUDESONIDE 0.5 MG/2 ML NEBU INHALATION SCH (19:24)
[2018-01-28] MEDS ORDERED: NON-FORMULARY DRUG (Budesonide [Pulmicort Flexhaler] 2 PUFF) INHALATION SCH (20:00)
[2018-01-28] MEDS: THIAMINE 100 MG TAB PO SCH (20:58)
[2018-01-28] MEDS ORDERED: QUEtiapine 100 MG TAB PO SCH (21:00)
[2018-01-28] MEDS ORDERED: ATORVASTATIN 10 MG TAB PO SCH (21:00)
[2018-01-28] MEDS ORDERED: ALPRAZolam 0.25 MG TAB PO PRN (21:45)
[2018-01-29] MEDS ORDERED: PANTOPRAZOLE 40 MG TABLET PO SCH (07:30)
[2018-01-29 07:47] VITALS: TEMP 98.1
[2018-01-29] MEDS: ALBUTEROL NEBULIZED 2.5 MG/3 ML INHALATION SCH ×2 (08:03→13:51)
[2018-01-29] MEDS: BUDESONIDE 0.5 MG/2 ML NEBU INHALATION SCH (08:03)
[2018-01-29] MEDS: IPRATROPIUM 0.5 MG/2.5 ML NEBU INHALATION SCH ×2 (08:28→13:51)
[2018-01-29] MEDS ORDERED: PARoxetine 20 MG TAB PO SCH (09:00)
[2018-01-29] MEDS ORDERED: PRIMIDONE 50 MG TAB PO SCH (09:00)
--- NOTE | 2018-01-29 09:23 | P.CRDCN ---
History of Present Illness Consult date: 01/29/18 History of present illness: This is a 52-year-old gentleman with history of paroxysmal atrial fibrillation and also flutter. He is also has history of Cardec myopathy. Patient hasn't ablation for atrial flutter by Dr. Martins. He is waiting to have another ablation for atrial fibrillation. Patient has chronic shortness of breath. Yesterday patient apparently felt short of breath, palpitation and vague chest pains. He claimed that chest pain was increasing and he took a deep breath. His EKGs did not reveal any acute changes. His cardiac enzymes have been negative. Is feeling much better today. His the pains appear to be typical. Patient could be discharged home and follow-up as an outpatient Review of Systems As per the chart Past Medical History Past Medical History: Atrial Fibrillation, Atrial Flutter, Cancer, Chest Pain / Angina, Heart Failure, COPD, Hyperlipidemia, Hypertension, Myocardial Infarction ([place]), Pneumonia, Pulmonary Embolus (PE), Syncope, Thyroid Disorder Additional Past Medical History / Comment(s): Nonischemic cardiomyopathy with an ejection fraction of 30-35%, Graves disease, tremors, pulmonary embolism 02/2016, squamous cell skin cancer with removal, severe fall down flight of steps in 2016-was in ICU w/fx. ribs,pneumonthorax/hemothorax required chest tubes,past resp failure requiring vent/trach. chronic alcoholism Last Myocardial Infarction Date:: October 2016 History of Any Multi-Drug Resistant Organisms: MRSA Date of last positivie culture/infection: 05/24/17 MDRO Source:: bronch/sputum Past Surgical History: Adenoidectomy, Cholecystectomy, Tonsillectomy Additional Past Surgical History / Comment(s): 12/23/17 cardiac ablation for aflutter and needs another ablation for A fib, RT HAND SX (TENDON REPAIR).RT THIGH SKIN LESION EXCISION(SQUAMOUS CELL CARCINOMA), functional endoscopic sinus surgery/septoplasty,chest tube/ trach & feeding tube 2016 after a fall, bronchoscopy. Past Anesthesia/Blood Transfusion Reactions: No Reported Reaction Smoking Status: Current every day smoker - Past Family History Mother Family Medical History: Cancer, Congestive Heart Failure (CHF), Coronary Artery Disease (CAD), CVA/TIA Additional Family Medical History / Comment(s): Mother had throat cancer and of this at the age of 68yrs. Father Additional Family Medical History / Comment(s): IN [place] WHEN PT WAS 1 YEARS OLD. Medications and Allergies Home Medications Medication Instructions Recorded Confirmed Type Amiodarone HCl [Pacerone] 200 mg PO DAILY 07/23/17 01/28/18 History Budesonide [Pulmicort] 0.5 mg INHALATION RT-BID 07/23/17 01/28/18 History PARoxetine HCL [Paxil] 40 mg PO DAILY 07/23/17 01/28/18 History Primidone [Mysoline] 75 mg PO DAILY 07/23/17 01/28/18 History QUEtiapine [SEROquel] 100 mg PO HS 07/23/17 01/28/18 History Rivaroxaban [Xarelto] 20 mg PO DAILY 07/23/17 01/28/18 History Thiamine [Vitamin B-1] 100 mg PO BID 07/23/17 01/28/18 History Albuterol Inhaler [Ventolin Hfa 2 puff INHALATION RT-Q6H PRN 12/17/17 01/28/18 History Inhaler] Albuterol Nebulized [Ventolin 2.5 mg INHALATION RT-TID 12/17/17 01/28/18 History Nebulized] Atorvastatin [Lipitor] 10 mg PO HS 12/17/17 01/28/18 History Metoprolol Tartrate [Lopressor] 50 mg PO BID 12/17/17 01/28/18 History Pantoprazole [Protonix] 40 mg PO DAILY 12/17/17 01/28/18 History Umeclidinium [place] [Incruse 1 puff INHALATION RT-DAILY 12/17/17 01/28/18 History Ellipta] Budesonide [Pulmicort Flexhaler] 2 puff INHALATION RT-BID 01/03/18 01/28/18 History Furosemide [Lasix] 40 mg PO BID #0 01/05/18 01/28/18 Rx Lisinopril [Zestril] 5 mg PO DAILY #30 tab 01/05/18 01/28/18 Rx Allergies Allergy/AdvReac Type Severity Reaction Status Date / Time warfarin [From Coumadin] AdvReac MAKES Verified 01/28/18 10:25 BLOOD TOO THIN Physical Exam Vitals: Vital Signs Temp Pulse Pulse Pulse Resp BP BP 08/18/18 08:24 84 01/29/18 08:05 70 01/29/18 07:46 98.1 F 56 L 18 01/29/18 04:00 98.4 F 55 L 18 01/29/18 00:00 98.2 F 56 L 18 01/28/18 20:00 18 01/28/18 19:57 98.2 F 53 L 18 01/28/18 19:41 71 01/28/18 19:27 67 01/28/18 16:00 64 64 18 01/28/18 15:21 98.1 F 64 18 140/73 01/28/18 12:00 64 18 01/28/18 11:30 97.5 F L 64 18 154/91 01/28/18 11:18 97.9 F 65 18 149/75 01/28/18 09:29 67 BP Pulse Ox 01/29/18 08:24 01/29/18 08:05 01/29/18 07:46 114/63 97 01/29/18 04:00 91/51 96 01/29/18 00:00 93/57 94 L 01/28/18 20:00 01/28/18 19:57 147/78 96 01/28/18 19:41 01/28/18 19:27 01/28/18 16:00 01/28/18 15:21 97 01/28/18 12:00 01/28/18 11:30 95 01/28/18 11:18 100 01/28/18 09:29 Intake and Output 01/28/18 01/29/18 01/29/18 22:59 06:59 14:59 Other: Voiding Method Toilet Toilet Urinal Urinal # Voids 1 GENERAL EXAM: Patient is alert and oriented and doesn't appear to be in any acute distress HEENT: Normocephalic. Normal reaction of pupils, equal size, normal range of extraocular motion. No erythema or exudates in the throat. NECK: No masses, no nuchal rigidity. CHEST: No chest wall deformity. LUNGS: Equal air entry with no crackles or wheeze. HEART: S1 and S2 normal with no audible mumurs or gallops. Regular rhythm, femorals equal on both sides.. ABDOMEN: No hepatosplenomegaly, normal bowel sounds, no guarding or rigidity. SKIN: No rashes CENTRAL NERVOUS SYSTEM: No focal deficits. EXTREMITIES: No cyanosis, clubbing or edema. Results 01/27/18 20:51 01/27/18 20:51 Cardiac Enzymes 01/28/18 Range/Units :18 CK-MB (CK-2) 1.9 (0.0-2.4) ng/mL Troponin I <0.012 (0.000-0.034) ng/mL Current Medications Generic Name Dose Route Start Last Admin Trade Name Freimelda PRN Reason Stop Dose Admin Acetaminophen 650 mg 01/27/18 22:32 Tylenol Tab PO Q6HR PRN Mild Pain or Fever > 100.5 Albuterol Sulfate 2 puff 01/28/18 06:20 Ventolin Hfa Inhaler INHALATION RT-Q6H PRN Shortness Of Breath Albuterol Sulfate 2.5 mg 01/28/18 08:00 01/29/18 08:03 Ventolin Nebulized INHALATION 2.5 mg RT-TID RENZO Administration Alprazolam 0.25 mg 01/28/18 21:45 01/28/18 23:28 Xanax PO 0.25 mg Q8HR PRN Administration Anxiety Amiodarone HCl 200 mg 01/28/18 09:00 01/28/18 08:58 Cordarone PO 200 mg DAILY RENZO Administration Aspirin 325 mg 01/28/18 09:00 01/28/18 08:58 Aspirin PO 325 mg DAILY RENZO Administration Atorvastatin Calcium 10 mg 01/28/18 21:00 01/28/18 20:58 Lipitor PO 10 mg HS RENZO Administration Budesonide 0.5 mg 01/28/18 20:00 01/29/18 08:03 Pulmicort INHALATION 0.5 mg RT-BID RENZO Administration Furosemide 40 mg 01/28/18 09:00 01/28/18 20:58 Lasix PO 40 mg BID RENZO Administration Sodium Chloride 1,000 mls @ 20 mls/hr 01/27/18 22:45 01/28/18 23:27 Saline 0.9% IV Not Given .Q24H RENZO Ibuprofen 400 mg 01/27/18 22:32 Motrin PO Q6HR PRN Mild Pain or Fever > 100.5 Ipratropium [place] 0.5 mg 01/28/18 16:00 01/29/18 08:28 Atrovent Nebulized INHALATION 0.5 mg RT-QID RENZO Administration Lisinopril 5 mg 01/28/18 09:00 01/28/18 08:59 Zestril PO 5 mg DAILY RENZO Administration Metoprolol Tartrate 50 mg 01/28/18 09:00 01/28/18 20:58 Lopressor PO 50 mg BID RENZO Administration Naloxone HCl 0.2 mg 01/27/18 22:32 Narcan IV Q2M PRN Opioid Reversal Nitroglycerin 0.4 mg 01/27/18 22:33 Nitrostat SUBLINGUAL Q5M PRN Chest Pain Pantoprazole Sodium 40 mg 01/29/18 07:30 Protonix PO AC-BRKFST [facility] Paroxetine HCl 40 mg 01/29/18 09:00 Paxil PO DAILY [facility] Primidone 75 mg 01/29/18 09:00 Mysoline PO DAILY [facility] Quetiapine Fumarate 100 mg 01/28/18 21:00 01/28/18 20:58 Seroquel PO 100 mg HS RENZO Administration Rivaroxaban 20 mg 01/28/18 09:00 01/28/18 08:59 Xarelto PO 20 mg DAILY [facility] Administration Thiamine HCl 100 mg 01/28/18 21:00 01/28/18 20:58 Vitamin B-1 PO 100 mg BID [facility] Administration Intake and Output 01/28/18 01/29/18 01/29/18 22:59 06:59 14:59 Other: Voiding Method Toilet Toilet Urinal Urinal # Voids 1 01/27/18 20:51 01/27/18 20:51 EKG Interpretations (text) No acute changes Assessment and Plan (1) Atrial fibrillation Current Visit: Yes Status: Acute Code(s): I48.91 - UNSPECIFIED ATRIAL FIBRILLATION SNOMED Code(s): 38862619 (2) Chest pain Current Visit: Yes Status: Acute Code(s): R07.9 - CHEST PAIN, UNSPECIFIED SNOMED Code(s): 74438988 (3) COPD (chronic obstructive pulmonary disease) Current Visit: No Status: Acute Code(s): J44.9 - CHRONIC OBSTRUCTIVE PULMONARY DISEASE, UNSPECIFIED SNOMED Code(s): 32275896 Plan: His chest pains appear to be atypical. Cardiac output is negative. Patient could be discharged home. Follow-up as an outpatient
[2018-01-29] MEDS: ASPIRIN 325 MG TAB PO SCH (11:39)
[2018-01-29] MEDS: THIAMINE 100 MG TAB PO SCH (11:39)
[2018-01-29 11:40] VITALS: BP 110/61
[2018-01-29] MEDS: RIVAROXABAN 20 MG TAB PO SCH (11:40)
[2018-01-29] MEDS: LISINOPRIL 5 MG TAB PO SCH (11:40)
[2018-01-29] MEDS: FUROSEMIDE 40 MG TAB PO SCH (11:40)
[2018-01-29] MEDS: AMIODARONE 200 MG TAB PO SCH (11:40)
[2018-01-29] MEDS: METOPROLOL TARTRATE 50 MG TAB PO SCH (11:41)
[2018-01-29 14:03] VITALS: PULSE 70
--- NOTE | 2018-02-26 22:49 | P.DS ---
Providers Date of admission: 01/27/18 22:32 Expected date of discharge: 01/29/18 Attending physician: Nicole Grider Consults: 01/27/18 22:32 Consult Physician Urgent Consulting Provider: [facility] Reason/Comments: chest pain, recurrent a-fib Do you want consulting provider notified?: Yes Primary care physician: Mónica [facility] Course: Discharge diagnosis Chest pain/angina. Ruled out acute coronary syndrome. 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 Chest pain is mainly left retrosternal and associated with shortness of breath and burning sensation. Pain gets worse with deep breathing sometimes. Pain has been constant since admission. Patient also complaining of dizziness. And felt heart racing of fast and sweating. Patient says that he has been having cough since last tracheostomy in April 2017. Denied any worsening cough or sputum production. Otherwise denied any recent illnesses. No fever no chills. Patient does have a history of paroxysmal atrial fibrillation and underwent ablation in December and advised he needs a repeat ablation. Chest x-ray showed no acute cardio pulmonary process EKG showed atrial fibrillation Plan: Patient was continued on telemetry monitoring. Continue with serial EKGs and troponins negative. Cardiology and EP evaluation. Continued with home medications and follow closely. Further recommendations based on the clinical course. Cardiology recommends no further workup at this time. Patient is stable to be discharged home otherwise. Discharge physical examination was done and vitals reviewed. Patient Condition at Discharge: Stable Plan - Discharge Summary New Discharge Prescriptions: Continue Rivaroxaban [Xarelto] 20 mg PO DAILY Thiamine [Vitamin B-1] 100 mg PO BID QUEtiapine [SEROquel] 100 mg PO HS Primidone [Mysoline] 75 mg PO DAILY PARoxetine HCL [Paxil] 40 mg PO DAILY Amiodarone HCl [Pacerone] 100 mg PO DAILY Budesonide [Pulmicort] 0.5 mg INHALATION RT-BID Albuterol Inhaler [Ventolin Hfa Inhaler] 2 puff INHALATION RT-Q6H PRN PRN Reason: Shortness Of Breath Atorvastatin [Lipitor] 10 mg PO HS Metoprolol Tartrate [Lopressor] 50 mg PO BID Umeclidinium Hays [Incruse Ellipta] 1 puff INHALATION RT-DAILY Pantoprazole [Protonix] 40 mg PO DAILY Albuterol Nebulized [Ventolin Nebulized] 2.5 mg INHALATION RT-TID Budesonide [Pulmicort Flexhaler] 2 puff INHALATION RT-BID Furosemide [Lasix] 40 mg PO BID #0 Lisinopril [Zestril] 5 mg PO DAILY #30 tab No Action Umeclidinium Hays [Incruse Ellipta] 1 puff INHALATION DAILY Discharge Medication List Amiodarone HCl [Pacerone] 100 mg PO DAILY 07/23/17 [History] Budesonide [Pulmicort] 0.5 mg INHALATION RT-BID 07/23/17 [History] PARoxetine HCL [Paxil] 40 mg PO DAILY 07/23/17 [History] Primidone [Mysoline] 75 mg PO DAILY 07/23/17 [History] QUEtiapine [SEROquel] 100 mg PO HS 07/23/17 [History] Rivaroxaban [Xarelto] 20 mg PO DAILY 07/23/17 [History] Thiamine [Vitamin B-1] 100 mg PO BID 07/23/17 [History] Albuterol Inhaler [Ventolin Hfa Inhaler] 2 puff INHALATION RT-Q6H PRN 12/17/17 [ History] Albuterol Nebulized [Ventolin Nebulized] 2.5 mg INHALATION RT-TID 12/17/17 [ History] Atorvastatin [Lipitor] 10 mg PO HS 12/17/17 [History] Metoprolol Tartrate [Lopressor] 50 mg PO BID 12/17/17 [History] Pantoprazole [Protonix] 40 mg PO DAILY 12/17/17 [History] Umeclidinium Hays [Incruse Ellipta] 1 puff INHALATION RT-DAILY 12/17/17 [ History] Budesonide [Pulmicort Flexhaler] 2 puff INHALATION RT-BID 01/03/18 [History] Furosemide [Lasix] 40 mg PO BID #0 01/05/18 [Rx] Lisinopril [Zestril] 5 mg PO DAILY #30 tab 01/05/18 [Rx] Umeclidinium Hays [Incruse Ellipta] 1 puff INHALATION DAILY 02/17/18 [History ] Follow up Appointment(s)/Referral(s): Mónica Acosta MD [Primary Care Provider] - 1-2 days Dariel Quick MD [STAFF PHYSICIAN] - As Needed Patient Instructions/Handouts: Chest Pain (DC) Discharge Disposition: HOME SELF-CARE
== END 2018-01-29 14:45 | disposition home or self-care (01) ==
LOC: EC 20:07 → 3OBS 22:32 → INTOOBSV 22:32 → OBSVTOIN 22:32 → 6SEL 23:47 → 3OBS 01-28 08:54 → 3SUR 01-28 18:44
PROVIDERS: ADMIT Hospitalist; ATTEND Hospitalist
DX: I20.9 Angina pectoris, unspecified (principal); I48.0 Paroxysmal atrial fibrillation; I48.92 Unspecified atrial flutter; Z86.711 Personal history of pulmonary embolism; Z79.01 Long term (current) use of anticoagulants; J44.9 Chronic obstructive pulmonary disease, unspecified; E78.5 Hyperlipidemia, unspecified; I25.2 Old myocardial infarction; E03.9 Hypothyroidism, unspecified; I11.0 Hypertensive heart disease with heart failure; I50.22 Chronic systolic (congestive) heart failure; E05.00 Thyrotoxicosis with diffuse goiter without thyrotoxic crisis or storm; Z85.828 Personal history of other malignant neoplasm of skin; F17.200 Nicotine dependence, unspecified, uncomplicated; I42.9 Cardiomyopathy, unspecified; Z87.01 Personal history of pneumonia (recurrent); Z86.14 Personal history of Methicillin resistant Staphylococcus aureus infection; F10.20 Alcohol dependence, uncomplicated; Z90.49 Acquired absence of other specified parts of digestive tract; Z80.8 Family history of malignant neoplasm of other organs or systems; Z82.3 Family history of stroke; Z82.49 Family history of ischemic heart disease and other diseases of the circulatory system; Z79.899 Other long term (current) drug therapy; Z79.51 Long term (current) use of inhaled steroids; Z88.8 Allergy status to other drugs, medicaments and biological substances; F41.9 Anxiety disorder, unspecified; R29.6 Repeated falls; E66.9 Obesity, unspecified; Z68.30 Body mass index [BMI] 30.0-30.9, adult
CPT/HCPCS: 99285 ×2; 96360 ×2; 96361 ×16; 36415; 94640 ×3; 93005 ×2; 80061; 80053; 82550 ×2; 82553 ×2; 83735; 84443; 84484 ×2; 85025; 85610; 85730; 80306; 71046; G0378 ×4

== ENCOUNTER 2018-02-17 09:57 | Day surgery (SDC) | payer OTHER ==
[2018-02-16 08:37] VITALS: BMI 30.9
[~2018-02-17 09:57] MED LIST: MIDAZOLAM 2 MG/2 ML VIAL IV PRN; fentaNYL (PF) 50 MCG/ML 2 ML AMP IV PRN
[2018-02-17] MEDS ORDERED: SODIUM CHLORIDE 0.9% 1,000 ML IV ONE (11:06)
[2018-02-17] MEDS ORDERED: fentaNYL (PF) 50 MCG/ML 2 ML AMP ONE (11:50)
[2018-02-17] MEDS ORDERED: SUCCINYLCHOLINE CHLORIDE 100 MG/5 ML SYR IV ONE (11:50)
[2018-02-17] MEDS ORDERED: NEOSTIGMINE 1 MG/ML 10 ML VIAL ONE (11:50)
[2018-02-17] MEDS ORDERED: LIDOCAINE 1% INJ 10MG/ML (20 ML MDV) ONE ×2 (11:50→12:11)
[2018-02-17] MEDS ORDERED: PROPOFOL 10 MG/ML 20 ML VIAL IV ONE (11:50)
[2018-02-17] MEDS ORDERED: PROTAMINE SULFATE 10 MG/ML 25 ML VIAL IV ONE (11:50)
[2018-02-17] MEDS ORDERED: GLYCOPYRROLATE 0.2 MG/ML 2 ML VIAL ONE (11:50)
[2018-02-17] MEDS ORDERED: VECURONIUM 10 MG VIAL IV ONE (11:50)
[2018-02-17] MEDS ORDERED: HEPARIN SODIUM,PORCINE 5,000 UNIT/ML 1 ML VIAL ONE (11:50)
[2018-02-17] MEDS ORDERED: MIDAZOLAM 2 MG/2 ML VIAL ONE (11:50)
[2018-02-17] MEDS ORDERED: HEPARIN SODIUM 1,000 UN/ML (10ML VL) ONE (12:27)
[2018-02-17] MEDS ORDERED: LIDOCAINE 1% INJ 10MG/ML (20 ML MDV) SQ ONE (12:40)
[2018-02-17] MEDS ORDERED: HEPARIN SOD,PORK IN 0.45% NACL 25,000 UNIT in 0.45% NACL 1 500ML.BAG IV ONE (12:54)
[2018-02-17] MEDS ORDERED: IOPAMIDOL-370 100ML BTL INJ ONE (15:13)
--- NOTE | 2018-02-17 15:20 | P.PCN ---
Preoperative Diagnosis: Diagnosis Atrial fibrillation, symptomatic, refractory to therapy, persistent Result Successful pulmonary vein isolation of all veins using cryo-ablation Complete entrance block in all 4 veins confirmed No evidence for phrenic nerve injury Esophageal deflection = NO Electrical cardioversion with a synchronized shock across the chest = NO Procedure details Patient was brought to the EP lab in a fasting state. Written informed consent was obtained prior to the procedure. Procedure performed under general anesthesia After initial muscle relaxant use, muscle relaxants were not given thereafter in order to assess phrenic nerve during procedure Patient prepped and draped as per protocol Full cryo-set up with standard preparation of the cryoablation tools done Femoral Venous access obtained on the right and left groins Venous and arterial Sheaths placed Diagnostic catheters for the high right atrium, phrenic nerve stimulation and pacing, His bundle, RV and coronary sinus placed Intracardiac echo catheter placed Long sheath placed in the right atrium Left and right transseptal catheterization performed under intracardiac echo guidance Intravenous heparin with aCT above 300 Later, catheter positioning and balloon positioning in the left atrium, under intracardiac echo guidance Comprehensive diagnostic EP study Drug infusion Coronary sinus pacing and recording Baseline measurements Sinus cycle length 1072 ms, CT interval 140 ms, QRS 117 ms, QT 470 ms AH 67, HV 52 Atrial pacing performed from the high right atrium and the coronary sinus RV pacing AV node Wenckebach block from the high right atrium 14 and 30 ms Sinus node recovery times at 605 100 ms were 931 and 1222 ms VA Wenckebach block for 20 ms AV node Wenckebach block 310 ms from the coronary sinus EP study on Isuprel Transseptal catheterization performed RA pressure 15/8/12 LA pressure 33/11/21 Transseptal catheterization performed with standard sheath. The cryoablation sheath was then placed with an over the wire exchange without any acute complications. All 4 pulmonary veins were isolated in the following sequence: Left superior followed by left inferior followed by right superior followed by right inferior The cryo-ablation balloon was placed at the os of each vein 1.5 mL of IV dye was injected to confirm an occluded vein Goal during cryoablation was to achieve complete occlusion of the pulmonary vein , achieve -30C at 30 seconds and achieve -40C at 60 seconds and a time to affect of less than 60-90 seconds, . If not the balloon was repositioned to obtain this result After completion of Cryoblation with durations from 180-240 seconds, entrance block was confirmed with the Attain circular catheter in a roving fashion around the antrum of the pulmonary veins Phrenic nerve pacing was performed from the SVC, right innominate vein area and diaphragm voltage was monitored. Diaphragmatic contractions were also monitored manually for strength of contraction. Parameter goals for each cryo freeze -30C by 30 seconds -40C by 60 seconds Mediated between minus 40-55C Thaw time greater than 10 seconds Balloon visualized by intracardiac echo to ensure that the proximal one third was within the left atrium/antrum The esophagus was intubated. Esophageal Temperature monitoring with a CIRCA catheter formed. Esophageal deflection for hypothermia of the esophagus below 32C Left superior pulmonary vein 2 cryo lesions 216 seconds and 120 seconds Complete isolation Left inferior pulmonary vein 2 cryo lesions 3 minutes each, complete isolation Right superior pulmonary vein, during phrenic nerve pacing 2 cryo lesions, 180 seconds and 120 seconds Right inferior pulmonary vein, during phrenic nerve pacing 2 cryo lesions 120 seconds and 180 seconds, complete isolation At the end of the procedure the Achieve catheter was once again used to check for entrance block Phrenic nerve stimulation was performed to confirm diaphragmatic stimulation the end of the procedure Cine fluoroscopy was performed at the very end of the procedure to confirm movement of both diaphragms with inspiration and expiration At the end of the procedure the patient was extubated Heparin was reversed Venous sheaths were removed and hemostasis assured Procedures performed (PVI - CRYO Ablation) Invasive hemodynamic monitoring while general anesthesia, right femoral arterial line for monitoring and sampling Comprehensive diagnostic EP study CS pacing and recording Catheter the mapping of the tachycardia (NOT 3D mapping) Intracardiac echocardiography Pulmonary vein isolation with transseptal and comprehensive EPS, [id number] Drug Infusion +[id number]
[2018-02-17] MEDS ORDERED: ACETAMINOPHEN TAB 325 MG TAB PO PRN (15:25)
[2018-02-17] MEDS ORDERED: ACETAMINOPHEN IV (For NPO) 1,000 MG in EMPTY BAG 1 BAG IVPB ONE (16:00)
[2018-02-17] MEDS: SODIUM CHLORIDE 0.9% 1,000 ML IV SCH (17:53)
[2018-02-17] MEDS: LACTATED RINGERS 1,000 ML IV SCH (17:53)
[2018-02-17] MEDS: FUROSEMIDE 40 MG TAB PO SCH (19:58)
[2018-02-17] MEDS: METOPROLOL TARTRATE 50 MG TAB PO SCH (19:58)
[2018-02-17] MEDS: HYDROcodone/APAP 5-325MG 1 EACH TAB PO PRN (19:58)
[2018-02-17] MEDS ORDERED: NON-FORMULARY DRUG (Budesonide [Pulmicort Flexhaler] 2 PUFF) INHALATION SCH (20:00)
[2018-02-17] MEDS: THIAMINE 100 MG TAB PO SCH (20:12)
[2018-02-17] MEDS ORDERED: ATORVASTATIN 10 MG TAB PO SCH (21:00)
[2018-02-17] MEDS ORDERED: QUEtiapine 100 MG TAB PO SCH (21:00)
[2018-02-17] MEDS: BUDESONIDE 0.5 MG/2 ML NEBU INHALATION SCH (21:06)
[2018-02-18] MEDS: LACTATED RINGERS 1,000 ML IV SCH (03:37)
[2018-02-18] MEDS: SODIUM CHLORIDE 0.9% 1,000 ML IV SCH (03:37)
[2018-02-18] MEDS: HYDROcodone/APAP 5-325MG 1 EACH TAB PO PRN (05:21)
[2018-02-18] MEDS: IPRATROPIUM 0.5 MG/2.5 ML NEBU INHALATION SCH ×3 (07:18→16:22)
[2018-02-18] MEDS: BUDESONIDE 0.5 MG/2 ML NEBU INHALATION SCH (07:18)
[2018-02-18] MEDS ORDERED: PANTOPRAZOLE 40 MG TABLET PO SCH (07:30)
[2018-02-18 07:51] VITALS: RESP 16
[2018-02-18] MEDS ORDERED: NON-FORMULARY DRUG (Umeclidinium Bromide [Incruse Ellipta] 1 PUFF) INHALATION SCH (08:00)
--- NOTE | 2018-02-18 08:21 | P.DS ---
Providers Attending physician: Mikael Martins Primary care physician: [facility] Hospital Course: Patient denies any chest discomfort dizziness lightheadedness or palpitations. He is resting comfortably in bed. Yesterday there was oozing from the right groin and pressure was reapplied and a FemStop was applied. This morning there is absolutely no hematoma and mild tenderness in the right groin. Left groin is actually find was no tenderness. Heart sounds are normal breath sounds are clear vitals are stable afebrile 98.8 F, pulse rate in the 60s, blood pressure 120/72 mmHg Abdomen soft nontender extremities are warm Impression Persistent cardiac myopathy status post PVI, cryoablation, successful History of cardio myopathy Suggest Continue current medications without any changes. Continue Rivaroxaban, continue amiodarone 100 mg by mouth daily as well as beta blockers I will seen in the office in about a week Discharge home this evening if stable Patient Condition at Discharge: Stable Plan - Discharge Summary Discharge Rx Participant: No New Discharge Prescriptions: No Action RX: Rivaroxaban [Xarelto] 20 mg PO DAILY RX: Thiamine [Vitamin B-1] 100 mg PO BID RX: QUEtiapine [SEROquel] 100 mg PO HS RX: Primidone [Mysoline] 75 mg PO DAILY RX: PARoxetine HCL [Paxil] 40 mg PO DAILY RX: Amiodarone HCl [Pacerone] 100 mg PO DAILY RX: Budesonide [Pulmicort] 0.5 mg INHALATION RT-BID RX: Albuterol Inhaler [Ventolin Hfa Inhaler] 2 puff INHALATION RT-Q6H PRN PRN Reason: Shortness Of Breath RX: Atorvastatin [Lipitor] 10 mg PO HS RX: Metoprolol Tartrate [Lopressor] 50 mg PO BID RX: Umeclidinium Kennard [Incruse Ellipta] 1 puff INHALATION RT-DAILY RX: Pantoprazole [Protonix] 40 mg PO DAILY RX: Albuterol Nebulized [Ventolin Nebulized] 2.5 mg INHALATION RT-TID RX: Budesonide [Pulmicort Flexhaler] 2 puff INHALATION RT-BID RX: Furosemide [Lasix] 40 mg PO BID #0 RX: Lisinopril [Zestril] 5 mg PO DAILY #30 tab Umeclidinium Kennard [Incruse Ellipta] 1 puff INHALATION DAILY Discharge Medication List RX: Amiodarone HCl [Pacerone] 100 mg PO DAILY 07/23/17 [History] RX: Budesonide [Pulmicort] 0.5 mg INHALATION RT-BID 07/23/17 [History] RX: PARoxetine HCL [Paxil] 40 mg PO DAILY 07/23/17 [History] RX: Primidone [Mysoline] 75 mg PO DAILY 07/23/17 [History] RX: QUEtiapine [SEROquel] 100 mg PO HS 07/23/17 [History] RX: Rivaroxaban [Xarelto] 20 mg PO DAILY 07/23/17 [History] RX: Thiamine [Vitamin B-1] 100 mg PO BID 07/23/17 [History] RX: Albuterol Inhaler [Ventolin Hfa Inhaler] 2 puff INHALATION RT-Q6H PRN [History] RX: Albuterol Nebulized [Ventolin Nebulized] 2.5 mg INHALATION RT-TID 12/17/17 [ History] RX: Atorvastatin [Lipitor] 10 mg PO HS 12/17/17 [History] RX: Metoprolol Tartrate [Lopressor] 50 mg PO BID 12/17/17 [History] RX: Pantoprazole [Protonix] 40 mg PO DAILY 12/17/17 [History] RX: Umeclidinium Kennard [Incruse Ellipta] 1 puff INHALATION RT-DAILY 12/17/17 [ History] RX: Budesonide [Pulmicort Flexhaler] 2 puff INHALATION RT-BID 01/03/18 [History] RX: Furosemide [Lasix] 40 mg PO BID #0 01/05/18 [Rx] RX: Lisinopril [Zestril] 5 mg PO DAILY #30 tab 01/05/18 [Rx] Umeclidinium Kennard [Incruse Ellipta] 1 puff INHALATION DAILY 02/17/18 [History ] Follow up Appointment(s)/Referral(s): Mikael Martins MD [STAFF PHYSICIAN] - 1 Week (Follow-up with Dr. Harper in 1 week for a groin check post AF ablation) Activity/Diet/Wound Care/Special Instructions: Post EP study - Ablation instructions 1. Keep access sites dry for 2 days. 2. No heavy lifting or straining for 2 days. 3. Avoid bending the hips repeatedly for 2 days. 4. You may go up and down stairs slowly Call if the following is noted 1. Bleeding, increasing swelling or pain at the access sites. 2. Increasing chest discomfort, especially upon taking a deep breath. 3. Increasing shortness of breath, at rest or with exertion. 4. Undue cough / phlegm 5. Difficulty or pain while swallowing. 6. Pain or change in color in the extremities. 7. Fever, chills, rigors. 8. Increasing headache or neurologic symptoms. 9. Dizziness, fainting, palpitations Follow-up for a groin check in about [address] Harper Discharge Disposition: HOME SELF-CARE
[2018-02-18] MEDS ORDERED: LISINOPRIL 5 MG TAB PO SCH (09:00)
[2018-02-18] MEDS ORDERED: PRIMIDONE 25 MG TAB PO SCH (09:00)
[2018-02-18] MEDS ORDERED: AMIODARONE 100 MG TAB PO SCH (09:00)
[2018-02-18] MEDS ORDERED: PARoxetine 20 MG TAB PO SCH (09:00)
[2018-02-18] MEDS ORDERED: RIVAROXABAN 20 MG TAB PO SCH (09:00)
[2018-02-18] MEDS: THIAMINE 100 MG TAB PO SCH (10:16)
[2018-02-18] MEDS: METOPROLOL TARTRATE 50 MG TAB PO SCH (10:16)
[2018-02-18] MEDS: FUROSEMIDE 40 MG TAB PO SCH (10:17)
[2018-02-18 11:37] VITALS: BP 128/69; TEMP 97.6
[2018-02-18 16:32] VITALS: PULSE 56
== END 2018-02-18 17:45 | disposition home or self-care (01) ==
LOC: CATHEP 09:57 → 3OBS 15:40 → CATHEP 02-18 17:45
PROVIDERS: ATTEND Internal Medicine Clinical Cardiac Electrophysiology
DX: I48.1 Persistent atrial fibrillation (principal); R00.1 Bradycardia, unspecified; I42.9 Cardiomyopathy, unspecified; I11.0 Hypertensive heart disease with heart failure; I50.9 Heart failure, unspecified; E05.90 Thyrotoxicosis, unspecified without thyrotoxic crisis or storm; E78.5 Hyperlipidemia, unspecified; J44.9 Chronic obstructive pulmonary disease, unspecified; R25.1 Tremor, unspecified; K21.9 Gastro-esophageal reflux disease without esophagitis; F17.210 Nicotine dependence, cigarettes, uncomplicated; Z79.01 Long term (current) use of anticoagulants; Z79.51 Long term (current) use of inhaled steroids; Z79.899 Other long term (current) drug therapy
CPT/HCPCS: 94640 ×2; 93623; 93662; 93609; 93656; C1769 ×4; C1894 ×3; C1730 ×3; C1759; C1893; C1733; C1766; J2720; J2250; J1644 ×2; J2710; J2001; J3010; J0330; J2704; Q9967

== ENCOUNTER 2019-02-03 13:11 | Inpatient (IN) | payer OTHER ==
[2019-02-03] MEDS ORDERED: IPRATROPIUM-ALBUTEROL 3 ML NEB INHALATION STA (14:41)
[2019-02-03] MEDS ORDERED: MORPHINE SULFATE 4 MG/ML SYRINGE IVP STA (14:43)
[2019-02-03 15:15] LABS: Basophils % (A) 0 %; Eosinophils # (A) 0.1 k/uL (0-0.7); Eosinophils % (A) 1 %; HCT 34.5 % (39.0-53.0); HGB 11.6 gm/dL (13.0-17.5); Lymphocytes # (A) 0.6 k/uL (1.0-4.8); Lymphocytes % (A) 11 %; MCH 30.6 pg (25.0-35.0); MCHC 33.7 g/dL (31.0-37.0); MCV 90.9 fL (80.0-100.0); Mean Platelet Volume 6.9; Monocytes # (A) 0.4 k/uL (0-1.0); Monocytes % (A) 8 %; Neutrophils # (A) 4.3 k/uL (1.3-7.7); Neutrophils % (A) 78 %; Platelet Count 200 k/uL (150-450); RDW 15.3 % (11.5-15.5); WBC 5.5 k/uL (3.8-10.6)
[2019-02-03 15:22] LABS: Albumin 3.6 g/dL (3.5-5.0); Calcium 8.9 mg/dL (8.4-10.2); Magnesium 1.8 mg/dL (1.6-2.3); Potassium 3.7 mmol/L (3.5-5.1); Total Bilirubin 0.7 mg/dL (0.2-1.3); Total Protein 7.3 g/dL (6.3-8.2)
[2019-02-03 15:23] LABS: Appearance,Urine Cloudy (Clear); Bacteria,Urine Occasional /hpf; Bilirubin,Urine Negative (Negative); Blood,Urine Moderate (Negative); Color,Urine Yellow; Glucose,Urine (UA) Trace (Negative); Hyaline Casts,Urine 1 /lpf (0-2); Ketones,Urine 1+ (Negative); Leukocyte Esterase,Urine Large (Negative); Mucus,Urine Rare /hpf; Nitrite,Urine Negative (Negative); PH, Urine 5.5 (5.0-8.0); Protein,Urine 1+ (Negative); RBC,Urine 19 /hpf (0-5); Specific Gravity,Urine 1.015 (1.001-1.035); Squamous Epithelial Cell,Urine 1 /hpf (0-4); Urobilinogen,Urine <2.0 mg/dL (<2.0)
[2019-02-03 15:27] LABS: Partial Thromboplastin Time 24.4 sec (22.0-30.0); Prothrombin Time 10.8 sec (9.0-12.0)
--- NOTE | 2019-02-03 16:16 | CT ---
EXAMINATION TYPE: CT abdomen pelvis w con DATE OF EXAM: 02/03/2019 COMPARISON: 05/18/2017 HISTORY: Pt c/o RT testicular hardness and pain CT DLP: 1138.5 mGycm CONTRAST: CT scan of the abdomen and pelvis is performed without Oral Contrast and with IV Contrast, patient in jected with 80 mL of Isovue 300. FINDINGS: LUNG BASES-: No visible nodule. No infiltrate. Right-sided rib fractures noted. LIVER/GB: Cholecystectomy clips noted. No space occupying hepatic lesion. Biliary tree is of delia l caliber. PANCREAS: No inflammation. No distinct mass. SPLEEN: Splenomegaly AP dimension measuring 16.4 cm. No lesion seen. ADRENALS: No nodule. No thickening. KIDNEYS/BLADDER: No hydronephrosis. No nephrolithiasis. No distinct solid renal mass. Renal cysti c changes noted. Urinary bladder grossly unremarkable. BOWEL: Normal appendix. Normal bowel caliber. No inflammation. GENITAL ORGANS: No gross abnormality. LYMPH NODES: No greater than 1cm abdominal or pelvic lymph nodes are appreciated. AORTA: No significant abnormality. OSSEOUS STRUCTURES: No significant abnormality is seen. OTHER: No significant additional abnormality is seen. IMPRESSION: 1. No acute process identified. If testicular symptoms persist ultrasound of the testicles would be a dvised. 2. Splenomegaly.
--- NOTE | 2019-02-03 16:20 | XR ---
EXAMINATION TYPE: XR chest 2V DATE OF EXAM: 02/03/2019 COMPARISON: NONE HISTORY: Shortness of breath TECHNIQUE: Frontal and lateral views of the chest are obtained. FINDINGS: Scattered senescent parenchymal changes noted. Hyperinflation compatible with COPD. No evidence for infiltrate. No evidence for atelectasis. Heart size is stable. Mediastinal structures are stable and grossly unremarkable. No evidence for hilar prominence. Degenerative changes dorsal spine. Multiple healed right-sided rib fractures. IMPRESSION: 1. No evidence for acute pulmonary disease.
--- NOTE | 2019-02-03 16:55 | US ---
EXAMINATION TYPE: US scrotum with doppler. Grayscale and color Doppler Duplex imaging performed of t david scrotum. DATE OF EXAM: 02/03/2019 COMPARISON: NONE CLINICAL HISTORY: Pain. Pain EXAM MEASUREMENTS: TESTICLES: Right Testicle: 2.3 x 1.2 x 2.5 cm Left Testicle: 4.1 x 1.5 x 2.2 cm EPIDIDYMIS HEAD: Right Epididymis: Not well visualized. Left Epididymis: Not well visualized. Doppler performed to assess for testicular vascularity; good bilateral color flow and waveforms are s een. There is no evidence of testicular torsion. Presence of hydroceles: No Presence of varicoceles: No Hypoechoic area with vascularity lateral to right testicle. IMPRESSION: Small right-sided hydrocele. No testicular torsion or mass. Small right testicle.
[2019-02-03] MEDS ORDERED: cefTRIAXone IN SWFI 1,000 MG/10 ML SYRINGE IVP STA (17:13)
[2019-02-03] MEDS ORDERED: MAGNESIUM SULFATE-D5W PMX 1 GM in DEXTROSE/WATER 1 100ML.BAG IVPB ONE (17:13)
[2019-02-03] MEDS ORDERED: methylPREDNISolone SOD SUCCI 125 MG/2 ML VIAL IV STA (17:13)
[2019-02-03] MEDS ORDERED: NALOXONE 0.4 MG/ML 1 ML VIAL IV PRN (17:16)
--- NOTE | 2019-02-03 17:27 | ED ---
General Adult HPI - General Chief complaint: Recheck/Abnormal Lab/Rx Stated complaint: ROSE MARIE/Dizzy/Male Time Seen by Provider: 02/03/19 13:54 Source: patient Mode of arrival: ambulatory Limitations: no limitations - History of Present Illness Initial comments: The patient is a 53-year-old male who presents to the emergency department with complaint of shortness of breath and right testicular pain. He does report a history of A. fib, COPD and CHF. Denies chest palpitations. Denies any lower extremity swelling. No unilateral calf pain or swelling. Admits to a history of PE and is on Xarelto. States that he has not missed any doses. He states he's been using his inhalers as directed however it hasn't improved his symptoms. He denies a cough or hemoptysis. No ripping or tearing sensation to his back. No fevers or chills. States that his symptoms have been present for the past 7 days. Along with this shortness of breath he is complaining of right testicular pain. States it is tender to the touch. Patient is not sexually active. Denies any super pubic pain. Does report to difficulties with urination. Denies dysuria or hematuria. No other alleviating, precipitating or modifying factors - Related Data Home Medications Medication Instructions Recorded Confirmed Amiodarone HCl [Pacerone] 200 mg PO DAILY 07/23/17 02/03/19 PARoxetine HCL [Paxil] 40 mg PO DAILY 07/23/17 02/03/19 QUEtiapine [SEROquel] 100 mg PO HS 07/23/17 02/03/19 Thiamine [Vitamin B-1] 100 mg PO BID 07/23/17 02/03/19 Albuterol Inhaler [Ventolin Hfa 2 puff INHALATION RT-Q6H PRN 12/17/17 02/03/19 Inhaler] Albuterol Nebulized [Ventolin 2.5 mg INHALATION RT-TID 12/17/17 02/03/19 Nebulized] Atorvastatin [Lipitor] 10 mg PO HS 12/17/17 02/03/19 Metoprolol Tartrate [Lopressor] 50 mg PO BID 12/17/17 02/03/19 Pantoprazole [Protonix] 40 mg PO DAILY 12/17/17 02/03/19 Umeclidinium Rueter [Incruse 1 puff INHALATION RT-DAILY 12/17/17 02/03/19 Ellipta] Budesonide [Pulmicort Flexhaler] 2 puff INHALATION RT-BID 01/03/18 02/03/19 Ergocalciferol [Vitamin D2 50,000 unit PO MOWEFR 02/03/19 02/03/19 (DRISDOL)] Furosemide [Lasix] 40 mg PO DAILY 02/03/19 02/03/19 Polyethylene Glycol 3350 [Miralax] 17 gm PO DAILY 02/03/19 02/03/19 Topiramate [Topamax] 25 mg PO BID 02/03/19 02/03/19 Previous Rx's Medication Instructions Recorded Lisinopril [Zestril] 5 mg PO DAILY #30 tab 01/05/18 Montelukast [Singulair] 10 mg PO HS 30 Days #30 tab 02/07/19 Rivaroxaban [Xarelto] 15 mg PO DAILY 30 Days #30 tab 02/07/19 Sulfamethox-Tmp 800-160Mg [Bactrim 1 tab PO Q12HR #28 tab 02/07/19 DS 800-160 mg] predniSONE 10 mg PO DIRECTED #30 tab 02/07/19 Allergies Allergy/AdvReac Type Severity Reaction Status Date / Time warfarin [From Coumadin] AdvReac MAKES Verified 02/03/19 14:27 BLOOD TOO THIN Review of Systems ROS Statement: Those systems with pertinent positive or pertinent negative responses have been documented in the HPI. ROS Other: All systems not noted in ROS Statement are negative. Past Medical History Past Medical History: Atrial Fibrillation, Atrial Flutter, Cancer, Chest Pain / Angina, Heart Failure, COPD, Hyperlipidemia, Hypertension, Myocardial Infarction (PA), Pneumonia, Pulmonary Embolus (PE), Syncope, Thyroid Disorder Additional Past Medical History / Comment(s): Nonischemic cardiomyopathy with an ejection fraction of 30-35%, Graves disease, tremors, pulmonary embolism 04/22/2016, squamous cell skin cancer with removal, severe fall down flight of steps in 2016-was in ICU w/fx. ribs,pneumonthorax/hemothorax required chest tubes,past resp failure requiring vent/trach. chronic alcoholism, recent admission for SOB, see Dr Martins [facility] Last Myocardial Infarction Date:: October 2016 History of Any Multi-Drug Resistant Organisms: MRSA Date of last positivie culture/infection: 05/24/17 MDRO Source:: bronch/sputum Past Surgical History: Adenoidectomy, Cholecystectomy, Tonsillectomy Additional Past Surgical History / Comment(s): 12/23/17 cardiac ablation for a flutter, RT HAND SX (TENDON REPAIR).RT THIGH SKIN LESION EXCISION(SQUAMOUS CELL CARCINOMA), functional endoscopic sinus surgery/septoplasty,chest tube/ trach & feeding tube 2016 after a fall, bronchoscopy. Past Anesthesia/Blood Transfusion Reactions: No Reported Reaction Past Psychological History: Anxiety Smoking Status: Current every day smoker Past Alcohol Use History: Heavy Past Drug Use History: None Reported - Past Family History Mother Family Medical History: Cancer, Congestive Heart Failure (CHF), Coronary Artery Disease (CAD), CVA/TIA Additional Family Medical History / Comment(s): Mother had throat cancer and of this at the age of 68yrs. Father Additional Family Medical History / Comment(s): IN [place] WHEN PT WAS 1 YEARS OLD. General Exam Limitations: physical limitation General appearance: alert, in no apparent distress Head exam: Present: atraumatic, normocephalic, normal inspection Eye exam: Present: normal appearance, PERRL, EOMI. Absent: scleral icterus, conjunctival injection, periorbital swelling ENT exam: Present: normal exam, mucous membranes moist Neck exam: Present: normal inspection. Absent: tenderness, meningismus, lymphadenopathy Respiratory exam: Present: decreased breath sounds. Absent: wheezes, rales, rhonchi, stridor Cardiovascular Exam: Present: regular rate, normal rhythm, normal heart sounds. Absent: systolic murmur, diastolic murmur, rubs, gallop, clicks GI/Abdominal exam: Present: soft, normal bowel sounds. Absent: distended, tenderness, guarding, rebound, rigid exam: Present: testicular tenderness (significant right testicular tenderness and induration) Extremities exam: Present: normal inspection, full ROM, normal capillary refill. Absent: tenderness, pedal edema, joint swelling, calf tenderness Back exam: Present: normal inspection Neurological exam: Present: alert, oriented X3, CN II-XII intact Psychiatric exam: Present: normal affect, normal mood Skin exam: Present: warm, dry, intact, normal color. Absent: rash Course Vital Signs 08/02/03/19 02/03/19 13:37 15:22 15:28 Temperature 99.2 F Pulse Rate 108 H 100 104 H Respiratory 18 Rate Blood Pressure 134/86 O2 Sat by Pulse 99 Oximetry 02/03/19 18:01 Temperature Pulse Rate 86 Respiratory 18 Rate Blood Pressure 102/60 O2 Sat by Pulse 100 Oximetry EKG Findings - EKG Comments: EKG Findings:: EKG demonstrates a normal sinus rhythm with ventricular rate of 88. TN interval 138. QRS 102. QTC of 459. There are no acute ST segment elevations or depressions concerning for ischemic changes. No identification of atrial fibrillation. Medical Decision Making - Medical Decision Making Upon arrival the patient is placed into room 9. He is hooked up to continuous pulse ox and cardiac monitoring. A 12-lead EKG is performed on the patient as his vitals do demonstrate that he is tachycardic. EKG demonstrates a normal sinus rhythm. Peripheral IV is established. I did provide the patient with 125 mg of Solu-Medrol, 1 g of magnesium and a DuoNeb breathing treatment. I did conduct laboratory studies. We did perform a bladder scan and demonstrates the patient is 150 mL of urine in his bladder. He does provide a urine sample which does demonstrate an acute urinary tract infection. Because of this I did place the patient on Rocephin. I do have concerns for orchitis/epididymitis. He is offered treatment for sexually trasmitted infections however refused. The patient continues to remain on 2 L of oxygen. I did discuss results of laboratory studies and imaging with the patient. I did recommend admission to the hospital as the patient is still reporting that he feels short of breath. He'll continue to receive breathing treatments in the hospital. He did agree to this. A call discuss the case with Dr. Grider who did accept admission of the patient. The patient was transported to the floor in stable condition - Lab Data Result diagrams: 02/06/19 08:47 02/06/19 08:47 Lab Results 02/03/19 02/03/19 02/03/19 Range/Units 14:57 14:57 14:57 WBC 5.5 (3.8-10.6) k/uL RBC 3.80 L (4.30-5.90) m/uL Hgb 11.6 L (13.0-17.5) gm/dL Hct 34.5 L (39.0-53.0) % MCV 90.9 (80.0-100.0) fL MCH 30.6 (25.0-35.0) pg MCHC 33.7 (31.0-37.0) g/dL RDW 15.3 (11.5-15.5) % Plt Count 200 (150-450) k/uL Neutrophils % 78 % Lymphocytes % 11 % Monocytes % 8 % Eosinophils % 1 % Basophils % 0 % Neutrophils # 4.3 (1.3-7.7) k/uL Lymphocytes # 0.6 L (1.0-4.8) k/uL Monocytes # 0.4 (0-1.0) k/uL Eosinophils # 0.1 (0-0.7) k/uL Basophils # 0.0 (0-0.2) k/uL PT (9.0-12.0) sec INR (<1.2) APTT (22.0-30.0) sec Sodium 135 L (137-145) mmol/L Potassium 3.7 (3.5-5.1) mmol/L Chloride 101 (98-107) mmol/L Carbon Dioxide 20 L (22-30) mmol/L Anion Gap 14 mmol/L BUN 22 H (9-20) mg/dL Creatinine 1.57 H (0.66-1.25) mg/dL Est GFR (CKD-EPI)AfAm 57 (>60 ml/min/1.73 sqM) Est GFR (CKD-EPI)NonAf 49 (>60 ml/min/1.73 sqM) Glucose 162 H (74-99) mg/dL POC Glucose (mg/dL) (75-99) mg/dL POC Glu Internet Researcher ID Calcium 8.9 (8.4-10.2) mg/dL Magnesium 1.8 (1.6-2.3) mg/dL Total Bilirubin 0.7 (0.2-1.3) mg/dL AST 33 (17-59) U/L ALT 43 (21-72) U/L Alkaline Phosphatase 80 (38-126) U/L Troponin I (0.000-0.034) ng/mL NT-Pro-B Natriuret Pep 523 pg/mL Total Protein 7.3 (6.3-8.2) g/dL Albumin 3.6 (3.5-5.0) g/dL Urine Color Urine Appearance (Clear) Urine pH (5.0-8.0) Ur Specific [place] (1.001-1.035) Urine Protein (Negative) Urine Glucose (UA) (Negative) Urine Ketones (Negative) Urine Blood (Negative) Urine Nitrite (Negative) Urine Bilirubin (Negative) Urine Urobilinogen (<2.0) mg/dL Ur Leukocyte Esterase (Negative) Urine RBC (0-5) /hpf Urine WBC (0-5) /hpf Urine WBC Clumps (None) /hpf Ur Squamous Epith Cells (0-4) /hpf Urine Bacteria (None) /hpf Hyaline Casts (0-2) /lpf Urine Mucus (None) /hpf 02/03/19 02/03/19 02/03/19 Range/Units 14:57 14:57 15:00 WBC (3.8-10.6) k/uL RBC (4.30-5.90) m/uL Hgb (13.0-17.5) gm/dL Hct (39.0-53.0) % MCV (80.0-100.0) fL MCH (25.0-35.0) pg MCHC (31.0-37.0) g/dL RDW (11.5-15.5) % Plt Count (150-450) k/uL Neutrophils % % Lymphocytes % % Monocytes % % Eosinophils % % Basophils % % Neutrophils # (1.3-7.7) k/uL Lymphocytes # (1.0-4.8) k/uL Monocytes # (0-1.0) k/uL Eosinophils # (0-0.7) k/uL Basophils # (0-0.2) k/uL PT 10.8 (9.0-12.0) sec INR 1.0 (<1.2) APTT 24.4 (22.0-30.0) sec Sodium (137-145) mmol/L Potassium (3.5-5.1) mmol/L Chloride (98-107) mmol/L Carbon Dioxide (22-30) mmol/L Anion Gap mmol/L BUN (9-20) mg/dL Creatinine (0.66-1.25) mg/dL Est GFR (CKD-EPI)AfAm (>60 ml/min/1.73 sqM) Est GFR (CKD-EPI)NonAf (>60 ml/min/1.73 sqM) Glucose (74-99) mg/dL POC Glucose (mg/dL) (75-99) mg/dL POC Glu Internet Researcher ID Calcium (8.4-10.2) mg/dL Magnesium (1.6-2.3) mg/dL Total Bilirubin (0.2-1.3) mg/dL AST (17-59) U/L ALT (21-72) U/L Alkaline Phosphatase (38-126) U/L Troponin I 0.012 (0.000-0.034) ng/mL NT-Pro-B Natriuret Pep pg/mL Total Protein (6.3-8.2) g/dL Albumin (3.5-5.0) g/dL Urine Color Yellow Urine Appearance Cloudy (Clear) Urine pH 5.5 (5.0-8.0) Ur Specific [place] 1.015 (1.001-1.035) Urine Protein 1+ H (Negative) Urine Glucose (UA) Trace H (Negative) Urine Ketones 1+ H (Negative) Urine Blood Moderate H (Negative) Urine Nitrite Negative (Negative) Urine Bilirubin Negative (Negative) Urine Urobilinogen <2.0 (<2.0) mg/dL Ur Leukocyte Esterase Large H (Negative) Urine RBC 19 H (0-5) /hpf Urine WBC 78 H (0-5) /hpf Urine WBC Clumps Few H (None) /hpf Ur Squamous Epith Cells 1 (0-4) /hpf Urine Bacteria Occasional H (None) /hpf Hyaline Casts 1 (0-2) /lpf Urine Mucus Rare H (None) /hpf 02/03/19 02/04/19 02/04/19 Range/Units 20:27 06:40 07:24 WBC 3.6 L (3.8-10.6) k/uL RBC 3.73 L (4.30-5.90) m/uL Hgb 11.8 L (13.0-17.5) gm/dL Hct 34.9 L (39.0-53.0) % MCV 93.7 (80.0-100.0) fL MCH 31.7 (25.0-35.0) pg MCHC 33.8 (31.0-37.0) g/dL RDW 14.5 (11.5-15.5) % Plt Count 227 (150-450) k/uL Neutrophils % 85 % Lymphocytes % 11 % Monocytes % 2 % Eosinophils % 0 % Basophils % 0 % Neutrophils # 3.0 (1.3-7.7) k/uL Lymphocytes # 0.4 L (1.0-4.8) k/uL Monocytes # 0.1 (0-1.0) k/uL Eosinophils # 0.0 (0-0.7) k/uL Basophils # 0.0 (0-0.2) k/uL PT (9.0-12.0) sec INR (<1.2) APTT (22.0-30.0) sec Sodium (137-145) mmol/L Potassium (3.5-5.1) mmol/L Chloride (98-107) mmol/L Carbon Dioxide (22-30) mmol/L Anion Gap mmol/L BUN (9-20) mg/dL Creatinine (0.66-1.25) mg/dL Est GFR (CKD-EPI)AfAm (>60 ml/min/1.73 sqM) Est GFR (CKD-EPI)NonAf (>60 ml/min/1.73 sqM) Glucose (74-99) mg/dL POC Glucose (mg/dL) 265 H 342 H (75-99) mg/dL POC Glu Internet Researcher ID Sonal Villalta Kaitlyn Calcium (8.4-10.2) mg/dL Magnesium (1.6-2.3) mg/dL Total Bilirubin (0.2-1.3) mg/dL AST (17-59) U/L ALT (21-72) U/L Alkaline Phosphatase (38-126) U/L Troponin I (0.000-0.034) ng/mL NT-Pro-B Natriuret Pep pg/mL Total Protein (6.3-8.2) g/dL Albumin (3.5-5.0) g/dL Urine Color Urine Appearance (Clear) Urine pH (5.0-8.0) Ur Specific [place] (1.001-1.035) Urine Protein (Negative) Urine Glucose (UA) (Negative) Urine Ketones (Negative) Urine Blood (Negative) Urine Nitrite (Negative) Urine Bilirubin (Negative) Urine Urobilinogen (<2.0) mg/dL Ur Leukocyte Esterase (Negative) Urine RBC (0-5) /hpf Urine WBC (0-5) /hpf Urine WBC Clumps (None) /hpf Ur Squamous Epith Cells (0-4) /hpf Urine Bacteria (None) /hpf Hyaline Casts (0-2) /lpf Urine Mucus (None) /hpf 02/04/ Range/Units 07:24 WBC (3.8-10.6) k/uL RBC (4.30-5.90) m/uL Hgb (13.0-17.5) gm/dL Hct (39.0-53.0) % MCV (80.0-100.0) fL MCH (25.0-35.0) pg MCHC (31.0-37.0) g/dL RDW (11.5-15.5) % Plt Count (150-450) k/uL Neutrophils % % Lymphocytes % % Monocytes % % Eosinophils % % Basophils % % Neutrophils # (1.3-7.7) k/uL Lymphocytes # (1.0-4.8) k/uL Monocytes # (0-1.0) k/uL Eosinophils # (0-0.7) k/uL Basophils # (0-0.2) k/uL PT (9.0-12.0) sec INR (<1.2) APTT (22.0-30.0) sec Sodium 137 (137-145) mmol/L Potassium 4.0 (3.5-5.1) mmol/L Chloride 104 (98-107) mmol/L Carbon Dioxide 19 L (22-30) mmol/L Anion Gap 14 mmol/L BUN 23 H (9-20) mg/dL Creatinine 1.48 H (0.66-1.25) mg/dL Est GFR (CKD-EPI)AfAm 61 (>60 ml/min/1.73 sqM) Est GFR (CKD-EPI)NonAf 53 (>60 ml/min/1.73 sqM) Glucose 333 H (74-99) mg/dL POC Glucose (mg/dL) (75-99) mg/dL POC Glu Internet Researcher ID Calcium 9.2 (8.4-10.2) mg/dL Magnesium (1.6-2.3) mg/dL Total Bilirubin (0.2-1.3) mg/dL AST (17-59) U/L ALT (21-72) U/L Alkaline Phosphatase (38-126) U/L Troponin I (0.000-0.034) ng/mL NT-Pro-B Natriuret Pep pg/mL Total Protein (6.3-8.2) g/dL Albumin (3.5-5.0) g/dL Urine Color Urine Appearance (Clear) Urine pH (5.0-8.0) Ur Specific [place] (1.001-1.035) Urine Protein (Negative) Urine Glucose (UA) (Negative) Urine Ketones (Negative) Urine Blood (Negative) Urine Nitrite (Negative) Urine Bilirubin (Negative) Urine Urobilinogen (<2.0) mg/dL Ur Leukocyte Esterase (Negative) Urine RBC (0-5) /hpf Urine WBC (0-5) /hpf Urine WBC Clumps (None) /hpf Ur Squamous Epith Cells (0-4) /hpf Urine Bacteria (None) /hpf Hyaline Casts (0-2) /lpf Urine Mucus (None) /hpf Disposition Clinical Impression: Shortness of breath, COPD with acute exacerbation, Urinary tract bacterial infections, Hydrocele, Testicular pain, right Disposition: ADMITTED IP TO THIS HOSP Condition: Stable Is patient prescribed a controlled substance at d/c from ED?: No Decision to Admit Reason: Admit from EC Decision Date: 02/03/19 Decision Time: 17:16
[2019-02-03] MEDS ORDERED: LORazepam 2 MG/ML INJ IV PRN ×3 (18:24)
[2019-02-03] MEDS ORDERED: THIAMINE 100 MG/ML 2 ML VIAL IM STA (18:24)
[2019-02-03] MEDS ORDERED: ALPRAZolam 0.25 MG TAB PO PRN (18:28)
[2019-02-03 18:50] VITALS: BMI 29.2
[2019-02-03] MEDS: IPRATROPIUM-ALBUTEROL 3 ML NEB INHALATION SCH (19:36)
[2019-02-03] MEDS: SYMBICORT 160-4.5 MCG INHALER INHALATION SCH (19:36)
--- NOTE | 2019-02-03 19:51 | HP ---
HISTORY AND PHYSICAL CHIEF COMPLAINTS: Shortness of breath and dizziness, abdominal distention and testicular pain. HISTORY OF PRESENT ILLNESS: This 53-year-old gentleman with a past medical history of multiple medical problems including history atrial fibrillation, atrial flutter, history of CHF, COPD, hypertension, hyperlipidemia, myocardial infarction, pulmonary embolism, syncope, history of nonischemic cardiomyopathy, history of MRSA, history of cholecystectomy, history of anxiety, being followed by Dr. Mónica Acosta in the outpatient setting, is complaining of not feeling well for the past several days. The patient initially had shortness of breath and chronic obstructive pulmonary disease acute exacerbation was suspected. After initial treatment, patient felt better. The patient was also found to have UTI. The patient also had significant pain and swelling of the right testis and epididymis area and epididymo-orchitis suspected. Patient admitted for further evaluation and treatment. The patient also had multiple evaluations including chest x- ray. The chest x-ray showed no evidence of any acute pulmonary problems and scrotal ultrasound was also done which showed a small right-sided hydrocele and an abdominal/pelvis CAT scan was also done which showed no acute process also noted. Splenomegaly is noted. There is no history of fever, rigors. No history of headache, loss of consciousness or seizures at this time. PAST MEDICAL HISTORY: History of atrial flutter fibrillation, history of chest pain, CHF, COPD, hypertension, hyperlipidemia, history of myocardial infarction, pulmonary embolism, adenoidectomy, cholecystectomy, history of anxiety. MEDICATIONS: Prior to admission include home medications are: 1. Incruse Ellipta 1 puff daily. 2. Topamax 25 mg p.o. b.i.d. 3. Vitamin B1 100 mg p.o. b.i.d. 4. Xarelto 20 mg p.o. daily. 5. Seroquel 500 mg q.h.s. 6. MiraLAX 17 g daily. 7. Protonix 40 mg. 8. Paxil 40 mg p.o. daily. 9. Lopressor 50 mg p.o. b.i.d. 10.Zestril 5 mg p.o. daily. 11.Lasix 40 mg p.o. b.i.d. 12.Vitamin D2 50,000 p.o. Wednesday, Wednesday, Wednesday. 13.Pulmicort 2 puffs b.i.d. 14.Lipitor 10 mg q.h.s. 15.Pacerone 200 mg p.o. daily. 16.Ventolin 2.5 t.i.d. 17.Ventolin 2 puffs q.6h p.r.n. ALLERGIES: COUMADIN. FAMILY HISTORY: History of CHF, CAD, CVA, TIA. SOCIAL HISTORY: History of smoking, continued ongoing. Occasional alcohol intake. Patient drinks about 4-5 drinks at least 4-5 times weekly. REVIEW OF SYSTEMS: ENT: No diminished vision. No diminished hearing. CARDIOVASCULAR SYSTEM: No angina or palpitations. RESPIRATORY: As mentioned earlier. GI: As mentioned earlier. : As mentioned earlier. NERVOUS SYSTEM: No numbness or weakness. ALLERGY/IMMUNOLOGY: As mentioned earlier. MUSCULOSKELETAL: As mentioned earlier. HEMATOLOGY/ONCOLOGY: No history of anemia. ENDOCRINE: No history of diabetes or hypothyroidism. CONSTITUTIONAL: As mentioned earlier. DERMATOLOGY negative. RHEUMATOLOGY: Negative. PSYCHIATRIC: As mentioned earlier. PHYSICAL EXAMINATION: Alert and oriented x3. Pulse is 86, blood pressure 102/60, respiration 18, temperature 99.2, pulse ox 100 percent on 2 L. HEENT: Conjunctivae normal. Oral mucosa moist. NECK is no jugular venous distention. No carotid bruit. No lymph node enlargement. Cardiovascular system: S1, S2 muffled. No S3, no S4. RESPIRATIONS: Breath sounds diminished in the bases. Bilateral scattered rhonchi and crackles. Expiratory wheezing also present. ABDOMEN: Soft, obese. Abdominal wall edema also present. No ascites, hepatosplenomegaly. Bowel sounds present. LEGS: No edema. No swelling. NERVOUS SYSTEM: Higher functions as mentioned. Moves all 4 limbs. No focal motor or sensory deficits. LYMPHATICS: No lymph nodes palpable in the neck, axilla or groin. JOINTS: No active deforming arthropathy. SKIN: No ulcer, rash or bleeding. Examination of the external genitalia right testis tender with epididymal orchitis with some swelling also present suggestive of possible epididymo-orchitis. LABS: WBC 5.2, hemoglobin 11.2, sodium 135, creatinine is 1.57. UA noted. ASSESSMENT: 1. Chronic obstructive pulmonary disease exacerbation acute purulent tracheobronchitis. 2. Possible acute right-sided epididymo-orchitis of undetermined etiology. 3. Possible urinary tract infection. 4. Increased creatinine with possible acute renal failure with acute tubular necrosis prerenal renal failure. 5. Hyponatremia. 6. Anemia of chronic disease. 7. History atrial flutter fibrillation. 8. History of congestive heart failure. 9. History of chronic obstructive pulmonary disease. 10.Hypertension. 11.Hyperlipidemia. 12.History of myocardial infarction. 13.History of pulmonary embolism on Xarelto. 14.History of nonischemic ischemic cardiomyopathy, ejection fraction 30 to 35%. 15.History of Graves' disease. 16.History of tremors. 17.History of squamous cell carcinoma cancer. 18.History of MRSA. 19.History of adenoidectomy, cholecystectomy. 20.History of anxiety. 21.History of continued ongoing nicotine dependence. 22.History of ETOH. 23.FULL CODE. RECOMMENDATIONS AND DISCUSSION: This 53-year-old gentleman who presented with multiple complex medical issues, at this time, I recommend to continue current management, symptomatic treatment. We will initiate bronchodilators, IV steroids. We will also recommend broad-spectrum IV antibiotics. Pulmonary and infectious Disease consultation will be obtained. Otherwise, I would also recommend repeat labs. Cultures. Resume the home medications. Overall prognosis guarded because of multiple complex medical issues. Further recommendations to follow. A copy of dictation being forwarded to Dr. Mónica Acosta who is the primary physician. MMODL / IJN: [id number] /
[2019-02-03] MEDS ORDERED: FLUTICASONE 110 MCG INHALER INHALATION SCH (20:00)
[2019-02-03 20:28] LABS: Glucose,Whole Blood 265 mg/dL (75-99)
[2019-02-03] MEDS: QUEtiapine 100 MG TAB PO SCH (21:30)
[2019-02-03] MEDS: ERGOCALCIFEROL 50,000 UNIT CAP PO SCH (21:30)
[2019-02-03] MEDS: PIPERACILLIN-TAZOBACTAM 3.375 GM in SODIUM CHLORIDE 0.9% 100 ML IVPB SCH (21:30)
[2019-02-03] MEDS: ATORVASTATIN 10 MG TAB PO SCH (21:30)
[2019-02-03] MEDS: TOPIRAMATE 25 MG TAB PO SCH (21:30)
[2019-02-03] MEDS: METOPROLOL TARTRATE 50 MG TAB PO SCH (21:30)
[2019-02-03] MEDS: INSULIN ASPART (NovoLOG) 100 UNIT/ML VIAL SQ SCH (21:31)
[2019-02-03] MEDS: methylPREDNISolone SOD SUCCI 125 MG/2 ML VIAL IV SCH (23:33)
[2019-02-04] MEDS: IPRATROPIUM-ALBUTEROL 3 ML NEB INHALATION SCH ×4 (01:31→19:07)
[2019-02-04] MEDS: PIPERACILLIN-TAZOBACTAM 3.375 GM in SODIUM CHLORIDE 0.9% 100 ML IVPB SCH (05:53)
[2019-02-04] MEDS: methylPREDNISolone SOD SUCCI 125 MG/2 ML VIAL IV SCH ×2 (05:53→11:53)
[2019-02-04 06:41] LABS: Glucose,Whole Blood 342 mg/dL (75-99)
[2019-02-04] MEDS: SYMBICORT 160-4.5 MCG INHALER INHALATION SCH ×2 (07:10→19:05)
[2019-02-04] MEDS: HYDROcodone/APAP 5-325MG 1 EACH TAB PO PRN ×2 (07:37→21:03)
[2019-02-04] MEDS: FUROSEMIDE 40 MG TAB PO SCH (07:38)
[2019-02-04] MEDS: INSULIN ASPART (NovoLOG) 100 UNIT/ML VIAL SQ SCH ×5 (07:38→21:04)
[2019-02-04] MEDS: LISINOPRIL 5 MG TAB PO SCH (07:38)
[2019-02-04] MEDS: TOPIRAMATE 25 MG TAB PO SCH ×2 (07:38→21:04)
[2019-02-04] MEDS: METOPROLOL TARTRATE 50 MG TAB PO SCH ×2 (07:38→21:04)
[2019-02-04] MEDS: THIAMINE 100 MG TAB PO SCH ×2 (07:38→17:03)
[2019-02-04] MEDS: PANTOPRAZOLE 40 MG TABLET PO SCH (07:38)
[2019-02-04] MEDS: POLYETHYLENE GLYCOL 3350 17 GM POWD.PACK PO SCH (07:39)
[2019-02-04] MEDS: RIVAROXABAN 20 MG TAB PO SCH (07:58)
[2019-02-04] MEDS: AMIODARONE 200 MG TAB PO SCH (07:58)
[2019-02-04] MEDS: PARoxetine 20 MG TAB PO SCH (07:58)
[2019-02-04] MEDS ORDERED: NON-FORMULARY DRUG (Umeclidinium Bromide [Incruse Ellipta] 1 PUFF) INHALATION SCH (08:00)
[2019-02-04 08:11] LABS: Basophils % (A) 0 %; Eosinophils % (A) 0 %; HCT 34.9 % (39.0-53.0); HGB 11.8 gm/dL (13.0-17.5); Lymphocytes # (A) 0.4 k/uL (1.0-4.8); Lymphocytes % (A) 11 %; MCH 31.7 pg (25.0-35.0); MCHC 33.8 g/dL (31.0-37.0); MCV 93.7 fL (80.0-100.0); Mean Platelet Volume 6.8; Monocytes # (A) 0.1 k/uL (0-1.0); Monocytes % (A) 2 %; Neutrophils % (A) 85 %; Platelet Count 227 k/uL (150-450); RBC 3.73 m/uL (4.30-5.90); RDW 14.5 % (11.5-15.5); WBC 3.6 k/uL (3.8-10.6)
[2019-02-04 08:55] LABS: Calcium 9.2 mg/dL (8.4-10.2)
[2019-02-04] MEDS ORDERED: MD COMMUNICATION TO PHARMACY 1 EACH MISC PO PRN (10:08)
[2019-02-04] MEDS ORDERED: KETOROLAC 30 MG/ML 1 ML VIAL IVP ONE (10:30)
--- NOTE | 2019-02-04 10:51 | P.CONS ---
History of Present Illness - Reason for Consult Consult date: 02/04/19 - Chief Complaint Fever - History of Present Illness 53-year-old male who is known history of chronic alcoholism, chronic tobacco use and multiple medical troubles that includes underlying ischemic cardiomyopathy, cardiac dysrhythmia and a history of hemopneumothorax status po st fall with the right-sided chest injury. At that time. Respiratory failure and was intubated and sedated. Eventually he improved but now has ongoing alcohol use and tobacco use. He relates a couple days ago started to feel poorly he blistered have bit of fever and then he had the sudden onset of pain into his right testicle and related that he had significant urinary urgency significant pain with urination and has very small urine volumes. The urine was not significantly malodorous but it was dark and cloudy. He's not had this trouble in the past. He has had no recent sexual encounters it's actually been several years since sexual activity. He has no trauma to the testicle or to the groin. He does relate that before the start he did have an acute gastroenteritis about a four-day cycle of diarrhea. That has resolved with no hematemesis melena or hematochezia. Review of Systems 53-year-old male uncomfortable but not in severe pain HEENT:Denies headache or acute visual change. Denies sinus or mouth discomforts. Denies neck stiffness or pain. Denies significant oral cavity pain. Denies difficulty on swallowing. Lungs: Denies significant shortness of breath, cough, sputum production, or hemoptysis. Cardiovascular: Denies significant shortness of breath, chest pain, chest wall pain, orthopnea, dyspnea on exertion, syncope Gastrointestinal:D as per the HPI did have a few days of diarrhea but has no residual nausea and emesis consulation diarrhea hematemesis melena or hematochezia Musculoskeletal: denies significant myalgias or arthralgias. No new joint swelling. Denies new back pain. Skin: Denies new rash or lesions. No new ulcers or wounds are related.. Neuro: Denies headache or visual change. Denies any new onset weakness or difficulty with ambulation. Denies falls or seizures. Psychiatric:Denies anxiety or depression. Endocrine: Denies significant fatigue, denies significant weight loss or weight gain. As per the HPI swelling and pain to the right testicle Past Medical History Past Medical History: Atrial Fibrillation, Atrial Flutter, Cancer, Chest Pain / Angina, Heart Failure, COPD, Hyperlipidemia, Hypertension, Myocardial Infarction ([place]), Pneumonia, Pulmonary Embolus ([place]), Syncope, Thyroid Disorder Additional Past Medical History / Comment(s): Nonischemic cardiomyopathy with an ejection fraction of 30-35%, Graves disease, tremors, pulmonary embolism 04/22/2016, squamous cell skin cancer with removal, severe fall down flight of steps in 2016-was in ICU w/fx. ribs,pneumonthorax/hemothorax required chest tubes,past resp failure requiring vent/trach. chronic alcoholism, recent admission for SOB, see Dr Martins [facility] Last Myocardial Infarction Date:: October 2016 History of Any Multi-Drug Resistant Organisms: MRSA Year Discovered:: 05/24/17 MDRO Source:: bronch/sputum Past Surgical History: Adenoidectomy, Cholecystectomy, Tonsillectomy Additional Past Surgical History / Comment(s): 12/23/17 cardiac ablation for a flutter, RT HAND SX (TENDON REPAIR).RT THIGH SKIN LESION EXCISION(SQUAMOUS CELL CARCINOMA), functional endoscopic sinus surgery/septoplasty,chest tube/ trach & feeding tube 2016 after a fall, bronchoscopy. Past Anesthesia/Blood Transfusion Reactions: No Reported Reaction Past Psychological History: Anxiety Additional Psychological History / Comment(s): Single, continues to drink, does live with his brother, no animals in the home, medically disabled. No experience. No animals in the home Smoking Status: Current every day smoker Past Alcohol Use History: Heavy Past Drug Use History: None Reported - Past Family History Mother Family Medical History: Cancer, Congestive Heart Failure (CHF), Coronary Artery Disease (CAD), CVA/TIA Additional Family Medical History / Comment(s): Mother had throat cancer and of this at the age of 68yrs. Father Additional Family Medical History / Comment(s): IN [place] WHEN PT WAS 1 YEARS OLD. Medications and Allergies Home Medications and Allergies Comment(s): Current Medications Hydrocodone Bitart/Acetaminophen ([place] 5-325) 1 each PO Q6HR PRN PRN Reason: Pain Last Admin: 02/04/19 07:37 Dose: 1 each Documented by: Albuterol/Ipratropium (Duoneb 0.5 Mg-3 Mg/3 Ml Soln) 3 ml INHALATION RT-Q6H [facility] Last Admin: 02/04/19 07:10 Dose: 3 ml Documented by: Alprazolam (Xanax) 0.25 mg PO TID PRN PRN Reason: Anxiety Amiodarone HCl (Cordarone) 200 mg PO DAILY [facility] Last Admin: 02/04/19 07:58 Dose: 200 mg Documented by: Atorvastatin Calcium (Lipitor) 10 mg PO HS [facility] Last Admin: 02/03/19 21:30 Dose: 10 mg Documented by: Budesonide/Formoterol Fumarate (Symbicort 160-4.5 Mcg Inhaler) 2 puff INHALATION RT-BID [facility] Last Admin: 02/04/19 07:10 Dose: 2 puff Documented by: Ergocalciferol (Vitamin D2) 50,000 unit PO MOWEFR [facility] Last Admin: 02/03/19 21:30 Dose: 50,000 unit Documented by: Furosemide (Lasix) 40 mg PO DAILY [facility] Last Admin: 02/04/19 07:38 Dose: 40 mg Documented by: Hydromorphone HCl (Dilaudid) 0.5 mg IVP Q3HR PRN PRN Reason: Severe Pain Ceftriaxone Sodium 2 gm/ (Sodium Chloride) 50 mls @ 100 mls/hr IVPB Q24HR [facility] Insulin Aspart (Novolog) 0 unit SQ ACHS [facility]; Protocol Last Admin: 02/04/19 07:38 Dose: 8 unit Documented by: Lisinopril (Zestril) 5 mg PO DAILY [facility] Last Admin: 02/04/19 07:38 Dose: 5 mg Documented by: Lorazepam (Ativan) 1 mg IV Q2HR PRN PRN Reason: CIWA 8 or 9 Lorazepam (Ativan) 1 mg IV Q1HR PRN PRN Reason: CIWA 10 to 15 Lorazepam (Ativan) 2 mg IV Q10M PRN PRN Reason: CIWA 16 or higher Stop: 02/05/19 18:24 Methylprednisolone Sodium Succinate (Solu-Medrol) 60 mg IV Q6HR [facility] Last Admin: 02/04/19 05:53 Dose: 60 mg Documented by: Metoprolol Tartrate (Lopressor) 50 mg PO BID [facility] Last Admin: 02/04/19 07:38 Dose: 50 mg Documented by: Miscellaneous Information ( Communication To Pharmacy) 1 each PO ONCE PRN PRN Reason: See Comments Naloxone HCl (Narcan) 0.2 mg IV Q2M PRN PRN Reason: Opioid Reversal Pantoprazole Sodium (Protonix) 40 mg PO AC-BRKFST [facility] Last Admin: 02/04/19 07:38 Dose: 40 mg Documented by: Paroxetine HCl (Paxil) 40 mg PO DAILY [facility] Last Admin: 02/04/19 07:58 Dose: 40 mg Documented by: Polyethylene Glycol (Miralax) 17 gm PO DAILY [facility] Last Admin: 02/04/19 07:39 Dose: Not Given Documented by: Quetiapine Fumarate (Seroquel) 100 mg PO [facility] Last Admin: 02/03/19 21:30 Dose: 100 mg Documented by: Rivaroxaban (Xarelto) 20 mg PO DAILY [facility] Last Admin: 02/04/19 07:58 Dose: 20 mg Documented by: Thiamine HCl (Vitamin B-1) 100 mg PO BID-W/MEALS [facility] Last Admin: 02/04/19 07:38 Dose: 100 mg Documented by: Topiramate (Topamax) 25 mg PO BID [facility] Last Admin: 02/04/19 07:38 Dose: 25 mg Documented by: Home Medications Medication Instructions Recorded Confirmed Type Amiodarone HCl [Pacerone] 200 mg PO DAILY 07/23/17 02/03/19 History PARoxetine HCL [Paxil] 40 mg PO DAILY 07/23/17 02/03/19 History QUEtiapine [SEROquel] 100 mg PO HS 07/23/17 02/03/19 History Rivaroxaban [Xarelto] 20 mg PO DAILY 07/23/17 02/03/19 History Thiamine [Vitamin B-1] 100 mg PO BID 07/23/17 02/03/19 History Albuterol Inhaler [Ventolin Hfa 2 puff INHALATION RT-Q6H PRN 12/17/17 02/03/19 History Inhaler] Albuterol Nebulized [Ventolin 2.5 mg INHALATION RT-TID 12/17/17 02/03/19 History Nebulized] Atorvastatin [Lipitor] 10 mg PO HS 12/17/17 02/03/19 History Metoprolol Tartrate [Lopressor] 50 mg PO BID 12/17/17 02/03/19 History Pantoprazole [Protonix] 40 mg PO DAILY 12/17/17 02/03/19 History Umeclidinium [place] [Incruse 1 puff INHALATION RT-DAILY 12/17/17 02/03/19 History Ellipta] Budesonide [Pulmicort Flexhaler] 2 puff INHALATION RT-BID 01/03/18 02/03/19 History Lisinopril [Zestril] 5 mg PO DAILY #30 tab 01/05/18 02/03/19 Rx Ergocalciferol [Vitamin D2] 50,000 unit PO MOWEFR 02/03/19 02/03/19 History Furosemide [Lasix] 40 mg PO DAILY 02/03/19 02/03/19 History Polyethylene Glycol 3350 [Miralax] 17 gm PO DAILY 02/03/19 02/03/19 History Topiramate [Topamax] 25 mg PO BID 02/03/19 02/03/19 History Allergies Allergy/AdvReac Type Severity Reaction Status Date / Time warfarin [From Coumadin] AdvReac MAKES Verified 02/03/19 14:27 BLOOD TOO THIN Physical Exam Vitals: Vital Signs Temp Pulse Pulse Resp BP BP Pulse Ox 02/04/19 08:00 97.4 F L 71 18 97/65 99 02/04/19 07:26 80 02/04/19 07:10 80 02/04/19 03:52 65 18 02/04/19 01:40 76 02/04/19 01:31 72 02/04/19 00:00 97.7 F 65 18 97/64 100 02/03/19 23:58 83 18 02/03/19 19:54 83 18 02/03/19 19:47 86 02/03/19 19:39 96 02/03/19 19:38 83 02/03/19 18:43 97.8 F 83 18 135/71 99 02/03/19 18:01 86 18 102/60 100 02/03/19 15:28 104 H 02/03/19 15:22 100 02/03/19 13:37 99.2 F 108 H 18 134/86 99 Intake and Output 02/03/19 02/04/19 02/04/19 22:59 06:59 14:59 Intake Total 200 Output Total 80 Balance -80 200 Intake: Intake, IV Titration 200 Amount Magnesium Sulfate-D5w Pmx 100 1 gm In Dextrose/Water 1 100ml.bag @ 100 mls/hr IVPB ONCE ONE Rx#: [id number] Piperacillin-Tazobactam 3 100 .375 gm In Sodium Chloride 0.9% 100 ml @ 25 mls/hr IVPB Q8H [facility] Rx#: [id number] Output: Post Void Residual 80 Other: # Voids 2 1 53-year-old male, short stature with muscular wasting HEENT: Anicteric conjunctiva are pink and moist nasal mucosa grossly intact without significant lesions, there is no thrush. Neck: The neck is supple without significant lymphadenopathy or thyromegaly. Lungs: Good bilateral air entry without significant crackles or wheezing. There is no significant bronchial sounds. There is no egophony or dullness. Heart: Regular rate and rhythm with an audible S1-S2, no S3 no S4. There is no significant murmur click or rub, PMI was nondisplaced. Abdomen: Minimally distended Positive bowel sounds soft and nontender without palpable masses or organomegaly. There was no guarding or rebound. Extremities: The upper extremities have excellent pulses they are symmetric, no significant petechiae or telangiectasia. No splinter hemorrhages were noted. The lower extremities are free from significant edema. The peripheral pulses were 2+ and symmetric. Neuro: Awake alert oriented to person place and time. There are no acute new gross focal sensory motor deficits. Genitalia reveals evidence of the significant swelling to the right epididymis is very tender. There is also some minimal tenderness to the right inguinal area. There are lesions on the shaft of the penis around the testicles the mselves. There is no rash or ulcers. There is no penile drainage. Left testicle is completely nontender. No lymphadenopathy in the left groin. No other abnormal lymph nodes were noted. Results CBC & Chem 7: 02/04/19 07:24 02/04/19 07:24 Labs: Abnormal Lab Results - Last 24 Hours (Table) 02/03/19 02/03/19 02/03/19 Range/Units 14:57 14:57 15:00 WBC (3.8-10.6) k/uL RBC 3.80 L (4.30-5.90) m/uL Hgb 11.6 L (13.0-17.5) gm/dL Hct 34.5 L (39.0-53.0) % Lymphocytes # 0.6 L (1.0-4.8) k/uL Sodium 135 L (137-145) mmol/L Carbon Dioxide 20 L (22-30) mmol/L BUN 22 H (9-20) mg/dL Creatinine 1.57 H (0.66-1.25) mg/dL Glucose 162 H (74-99) mg/dL POC Glucose (mg/dL) (75-99) mg/dL Urine Protein 1+ H (Negative) Urine Glucose (UA) Trace H (Negative) Urine Ketones 1+ H (Negative) Urine Blood Moderate H (Negative) Ur Leukocyte Esterase Large H (Negative) Urine RBC 19 H (0-5) /hpf Urine WBC 78 H (0-5) /hpf Urine WBC Clumps Few H (None) /hpf Urine Bacteria Occasional H (None) /hpf Urine Mucus Rare H (None) /hpf 02/03/19 02/04/19 02/04/19 Range/Units 20:27 06:40 07:24 WBC 3.6 L (3.8-10.6) k/uL RBC 3.73 L (4.30-5.90) m/uL Hgb 11.8 L (13.0-17.5) gm/dL Hct 34.9 L (39.0-53.0) % Lymphocytes # 0.4 L (1.0-4.8) k/uL Sodium (137-145) mmol/L Carbon Dioxide (22-30) mmol/L BUN (9-20) mg/dL Creatinine (0.66-1.25) mg/dL Glucose (74-99) mg/dL POC Glucose (mg/dL) 265 H 342 H (75-99) mg/dL Urine Protein (Negative) Urine Glucose (UA) (Negative) Urine Ketones (Negative) Urine Blood (Negative) Ur Leukocyte Esterase (Negative) Urine RBC (0-5) /hpf Urine WBC (0-5) /hpf Urine WBC Clumps (None) /hpf Urine Bacteria (None) /hpf Urine Mucus (None) /hpf 02/04/19 Range/Units 07:24 WBC (3.8-10.6) k/uL RBC (4.30-5.90) m/uL Hgb (13.0-17.5) gm/dL Hct (39.0-53.0) % Lymphocytes # (1.0-4.8) k/uL Sodium (137-145) mmol/L Carbon Dioxide 19 L (22-30) mmol/L BUN 23 H (9-20) mg/dL Creatinine 1.48 H (0.66-1.25) mg/dL Glucose 333 H (74-99) mg/dL POC Glucose (mg/dL) (75-99) mg/dL Urine Protein (Negative) Urine Glucose (UA) (Negative) Urine Ketones (Negative) Urine Blood (Negative) Ur Leukocyte Esterase (Negative) Urine RBC (0-5) /hpf Urine WBC (0-5) /hpf Urine WBC Clumps (None) /hpf Urine Bacteria (None) /hpf Urine Mucus (None) /hpf Microbiology - Last 24 Hours (Table) 02/03/19 15:00 Urine Culture - Preliminary Urine,Voided Laboratory Results WBC 3.6 k/uL (3.8-10.6) L 02/04/19 07:24 RBC 3.73 m/uL (4.30-5.90) L 02/04/19 07:24 Hgb 11.8 gm/dL (13.0-17.5) L 02/04/19 07:24 Hct 34.9 % (39.0-53.0) L 02/04/19 07:24 MCV 93.7 fL (80.0-100.0) 02/04/19 07:24 MCH 31.7 pg (25.0-35.0) 02/04/19 07:24 MCHC 33.8 g/dL (31.0-37.0) 02/04/19 07:24 RDW 14.5 % (11.5-15.5) 02/04/19 07:24 Plt Count 227 k/uL (150-450) 02/04/19 07:24 Neutrophils % 85 % 02/04/19 07:24 Lymphocytes % 11 % 02/04/19 07:24 Monocytes % 2 % 02/04/19 07:24 Eosinophils % 0 % 02/04/19 07:24 Basophils % 0 % 02/04/19 07:24 Neutrophils # 3.0 k/uL (1.3-7.7) 02/04/19 07:24 Lymphocytes # 0.4 k/uL (1.0-4.8) L 02/04/19 07:24 Monocytes # 0.1 k/uL (0-1.0) 02/04/19 07:24 Eosinophils # 0.0 k/uL (0-0.7) 02/04/19 07:24 Basophils # 0.0 k/uL (0-0.2) 02/04/19 07:24 PT 10.8 sec (9.0-12.0) 02/03/19 14:57 INR 1.0 (<1.2) 02/03/19 14:57 APTT 24.4 sec (22.0-30.0) 02/03/19 14:57 Sodium 137 mmol/L (137-145) 02/04/19 07:24 Potassium 4.0 mmol/L (3.5-5.1) 02/04/19 07:24 Chloride 104 mmol/L (98-107) 02/04/19 07:24 Carbon Dioxide 19 mmol/L (22-30) L 02/04/19 07:24 Anion Gap 14 mmol/L 02/04/19 07:24 BUN 23 mg/dL (9-20) H 02/04/19 07:24 Creatinine 1.48 mg/dL (0.66-1.25) H 02/04/19 07:24 Est GFR (CKD-EPI)AfAm 61 (>60 ml/min/1.73 sqM) 02/04/19 07:24 Est GFR (CKD-EPI)NonAf 53 (>60 ml/min/1.73 sqM) 02/04/19 07:24 Glucose 333 mg/dL (74-99) H 02/04/19 07:24 POC Glucose (mg/dL) 342 mg/dL (75-99) H 02/04/19 06:40 POC Glu [employer] العراقي 02/04/19 06:40 Calcium 9.2 mg/dL (8.4-10.2) 02/04/19 07:24 Magnesium 1.8 mg/dL (1.6-2.3) 02/03/19 14:57 Total Bilirubin 0.7 mg/dL (0.2-1.3) 02/03/19 14:57 AST 33 U/L (17-59) 02/03/19 14:57 ALT 43 U/L (21-72) 02/03/19 14:57 Alkaline Phosphatase 80 U/L (38-126) 02/03/19 14:57 Troponin I 0.012 ng/mL (0.000-0.034) 02/03/19 14:57 NT-Pro-B Natriuret Pep 523 pg/mL 02/03/19 14:57 Total Protein 7.3 g/dL (6.3-8.2) 02/03/19 14:57 Albumin 3.6 g/dL (3.5-5.0) 02/03/19 14:57 Urine Color Yellow 02/03/19 15:00 Urine Appearance Cloudy (Clear) 02/03/19 15:00 Urine pH 5.5 (5.0-8.0) 02/03/19 15:00 Ur Specific [place] 1.015 (1.001-1.035) 02/03/19 15:00 Urine Protein 1+ (Negative) H 02/03/19 15:00 Urine Glucose (UA) Trace (Negative) H 02/03/19 15:00 Urine Ketones 1+ (Negative) H 02/03/19 15:00 Urine Blood Moderate (Negative) H 02/03/19 15:00 Urine Nitrite Negative (Negative) 02/03/19 15:00 Urine Bilirubin Negative (Negative) 02/03/19 15:00 Urine Urobilinogen <2.0 mg/dL (<2.0) 02/03/19 15:00 Ur Leukocyte Esterase Large (Negative) H 02/03/19 15:00 Urine RBC 19 /hpf (0-5) H 02/03/19 15:00 Urine WBC 78 /hpf (0-5) H 02/03/19 15:00 Urine WBC Clumps Few /hpf (None) H 02/03/19 15:00 Ur Squamous Epith Cells 1 /hpf (0-4) 02/03/19 15:00 Urine Bacteria Occasional /hpf (None) H 02/03/19 15:00 Hyaline Casts 1 /lpf (0-2) 02/03/19 15:00 Urine Mucus Rare /hpf (None) H 02/03/19 15:00 Microbiology 02/03/19 15:00 Urine,Voided Urine Culture - Preliminary Assessment and Plan (1) Epididymo-orchitis, acute Narrative/Plan: 53-year-old male presents to hospital with the sudden onset of significant discomfort and pain to his right testicle associated with significant dysuria urinary urgency and small bladder volume. It is not on for a few days the symptoms markedly worsened he be lividity charted have a fever and constantly presents to Hospital. Ultrasounds were performed and shows evidence of the bit of a hydrocele but clinically has epididymoorchitis with a significant infectio n. Urinalysis is abnormal and urine blood cultures are pending. Admission there was evidence of significant hyperglycemia due to his uncontrolled diabetes. His white count has fallen to 3.6 in counseling Zosyn and is transitioned to Rocephin. He did have evidence of significant dehydration with acute increase of his creatinine which is improving from 1.57-1.48 with hydration over the last few hours. He does have a history of MRSA and consequently vancomycin is also indicated this point in time until there is further data. The patient is not sexually active. He did have a antecedent gastroenteritis which may have predisposed him to the current urogenital infection especially with his poor hygiene. Cultures for further help direct course of antibiotic therapy as he improves and radius for discharge. Current Visit: Yes Status: Acute Code(s): N45.3 - EPIDIDYMO-ORCHITIS SNOMED Code(s): 240480869 (2) Fever Current Visit: Yes Status: Acute Code(s): R50.9 - FEVER, UNSPECIFIED SNOMED Code(s): 822789031 (3) COPD with acute exacerbation Current Visit: Yes Status: Acute Code(s): J44.1 - CHRONIC OBSTRUCTIVE PULMONARY DISEASE W (ACUTE) EXACERBATION SNOMED Code(s): 982208829
[2019-02-04] MEDS: HYDROmorphone 0.5 MG/0.5 ML SYRINGE IVP PRN ×3 (11:06→23:36)
[2019-02-04 11:47] LABS: Glucose,Whole Blood 296 mg/dL (75-99)
[2019-02-04 16:30] LABS: Glucose,Whole Blood 244 mg/dL (75-99)
[2019-02-04] MEDS: methylPREDNISolone SOD SUCCI 40 MG/ML 1 ML VIAL IV SCH ×2 (17:03→23:35)
--- NOTE | 2019-02-04 18:34 | PN ---
PROGRESS NOTE . DATE OF SERVICE: 02/04/2019 This 53-year-old gentleman was admitted with COPD acute exacerbation as well as pain and swelling of the right testes, is being closely monitored. The patient started on broad-spectrum IV antibiotics and steroids also. Infectious Disease, Dr. Malcolm has seen the patient and recommended to continue the antibiotics at this time. The patient might require urology evaluation down the line as well. No chest pain. No palpitations. PAST MEDICAL HISTORY: Reviewed. REVIEW OF SYSTEMS: CARDIOVASCULAR: No angina or palpitations. RESPIRATORY: As mentioned earlier. GASTROINTESTINAL: As mentioned earlier. : As mentioned earlier. NERVOUS SYSTEMS: No numbness or weakness. CURRENT MEDICATIONS: Reviewed and include: 1. [place] 5 mg q.6h p.r.n. 2. DuoNeb q.i.d. and p.r.n. 3. Xanax 0.25 t.i.d. 4. Cordarone 20 mg p.o. daily. 5. Lipitor 10 mg q.h.s. 6. Symbicort 160/4.5 two puffs b.i.d. 7. Rocephin 2 g IV daily. 8. Vitamin D2 50,000 p.o. Wednesday, Wednesday, Wednesday. 9. Lasix 40 mg p.o. daily. 10.Dilaudid 0.5 mg q.3 p.r.n. 11.Zestril 5 mg p.o. daily. 12.Ativan 1 mg q.2 p.r.n. 13.Solu-Medrol 60 q.6h. 14.Lopressor 50 mg p.o. b.i.d. 15.Narcan. 16.Protonix 40 mg daily. 17.MiraLAX. 18.Seroquel. 19.Xarelto. 20.Topamax. PHYSICAL EXAM: Patient is alert, oriented x3. Pulse is 71, blood pressure 97/65, respiration 18, temperature 97.4, pulse ox 98% on 2 L. HEENT conjunctivae normal. NECK: No jugular venous distention. CARDIOVASCULAR: S1, S2 muffled. RESPIRATORY: Breath sounds diminished at the bases. Bilateral scattered rhonchi and crackles. Expiratory wheezing. ABDOMEN: Soft, nontender. LEGS: No swelling. Examination of the testes: Significant pain and swelling. NERVOUS SYSTEM: No focal deficits. LABS: WBC 3.6, hemoglobin 11.8, creatinine is 1.48. Accu-Cheks 296. UA noted. Cultures are pending at this time. ASSESSMENT: 1. Chronic obstructive pulmonary disease acute exacerbation with acute purulent tracheobronchitis. 2. Acute right-sided epididymo-orchitis of undetermined etiology with severe pain. 3. Urinary tract infection, present on admission. 4. Increased creatinine with possible acute renal failure with acute tubular necrosis, prerenal renal failure. 5. Diabetes mellitus type 2, uncontrolled with hyperglycemia. 6. Hyponatremia. 7. Anemia of chronic disease. 8. History of atrial flutter fibrillation. 9. History of congestive heart failure. 10.Chronic obstructive pulmonary disease. 11.Hypertension. 12.Hyperlipidemia. 13.History of myocardial infarction. 14.History of pulmonary embolism on Xarelto. 15.History of nonischemic cardiomyopathy, ejection fraction 30 to 35%. 16.History of Graves disease. 17.History of tremors. 18.History of squamous cell carcinoma. 19.History of Methicillin-resistant Staphylococcus aureus. 20.History of adenoidectomy, cholecystectomy. 21.History of anxiety. 22.Continued ongoing nicotine dependence. 23.History of ETOH. 24.FULL CODE. RECOMMENDATIONS AND DISCUSSION: Recommend to continue current medications, management, continue with monitoring, symptomatic treatment. Otherwise, at this time, I recommend continue with IV antibiotics, bronchodilators, taper the steroids. Closely follow with Infectious Disease. Guarded prognosis. Further recommendations to follow. MMODL / IJN: [id number] /
[2019-02-04 19:45] LABS: Glucose,Whole Blood 238 mg/dL (75-99)
[2019-02-04] MEDS: ATORVASTATIN 10 MG TAB PO SCH (21:04)
[2019-02-04] MEDS: INSULIN DETEMIR (LEVEMIR) 100 UNIT/ML SYR SQ SCH (21:04)
[2019-02-04] MEDS: QUEtiapine 100 MG TAB PO SCH (21:04)
[2019-02-05] MEDS: IPRATROPIUM-ALBUTEROL 3 ML NEB INHALATION SCH ×4 (04:09→19:34)
[2019-02-05] MEDS: HYDROmorphone 0.5 MG/0.5 ML SYRINGE IVP PRN ×3 (06:13→17:18)
[2019-02-05 06:38] LABS: Glucose,Whole Blood 268 mg/dL (75-99)
[2019-02-05] MEDS: SYMBICORT 160-4.5 MCG INHALER INHALATION SCH (07:21)
[2019-02-05 07:28] LABS: Basophils % (A) 0 %; Eosinophils % (A) 0 %; HCT 33.8 % (39.0-53.0); Lymphocytes # (A) 0.8 k/uL (1.0-4.8); Lymphocytes % (A) 6 %; MCH 30.4 pg (25.0-35.0); MCHC 32.6 g/dL (31.0-37.0); MCV 93.2 fL (80.0-100.0); Mean Platelet Volume 7.2; Monocytes # (A) 0.4 k/uL (0-1.0); Monocytes % (A) 3 %; Neutrophils # (A) 11.8 k/uL (1.3-7.7); Neutrophils % (A) 90 %; Platelet Count 266 k/uL (150-450); RBC 3.63 m/uL (4.30-5.90); RDW 15.2 % (11.5-15.5); WBC 13.1 k/uL (3.8-10.6)
[2019-02-05 07:46] LABS: Calcium 9.2 mg/dL (8.4-10.2); Potassium 4.5 mmol/L (3.5-5.1)
[2019-02-05] MEDS: INSULIN ASPART (NovoLOG) 100 UNIT/ML VIAL SQ SCH ×7 (07:59→20:47)
[2019-02-05] MEDS: POLYETHYLENE GLYCOL 3350 17 GM POWD.PACK PO SCH (08:00)
[2019-02-05] MEDS: METOPROLOL TARTRATE 50 MG TAB PO SCH ×2 (08:00→20:46)
[2019-02-05] MEDS: TOPIRAMATE 25 MG TAB PO SCH ×2 (08:00→20:46)
[2019-02-05] MEDS: FUROSEMIDE 40 MG TAB PO SCH (08:00)
[2019-02-05] MEDS: RIVAROXABAN 20 MG TAB PO SCH (08:00)
[2019-02-05] MEDS: PANTOPRAZOLE 40 MG TABLET PO SCH (08:00)
[2019-02-05] MEDS: PARoxetine 20 MG TAB PO SCH (08:00)
[2019-02-05] MEDS: methylPREDNISolone SOD SUCCI 40 MG/ML 1 ML VIAL IV SCH ×3 (08:00→23:04)
[2019-02-05] MEDS: THIAMINE 100 MG TAB PO SCH ×2 (08:00→17:19)
[2019-02-05] MEDS: AMIODARONE 200 MG TAB PO SCH (08:00)
[2019-02-05] MEDS: LISINOPRIL 5 MG TAB PO SCH (08:00)
[2019-02-05 11:27] LABS: Glucose,Whole Blood 203 mg/dL (75-99)
[2019-02-05 16:39] LABS: Glucose,Whole Blood 191 mg/dL (75-99)
--- NOTE | 2019-02-05 19:15 | PN ---
PROGRESS NOTE DATE OF SERVICE: 02/05/2019. This 53-year-old gentleman who was admitted with COPD acute exacerbation also had acute right-sided epididymo-orchitis, possibly. The patient on broad spectrum IV antibiotics. Infectious Disease following the patient closely. No chest pain. No palpitations. The pain is significantly better at this time. The patient also complained of diffuse tremors. PHYSICAL EXAM: Alert and oriented times three. Pulse 64. Blood pressure 122/57. Respiration 18. Temperature 97.4, pulse ox 98% on 2 L. HEENT: Conjunctivae normal. Oral mucosa moist. NECK is no jugular venous distention. No carotid bruit. No lymph node enlargement. Cardiovascular system: S1, S2. No S3, no S4. RESPIRATORY: Breath sounds diminished in the bases. A few scattered rhonchi and crackles. ABDOMEN: Soft, nontender. No mass palpable. External genitalia right testes epididymo-orchitis is present. LEGS: No edema. No swelling. CENTRAL NERVOUS SYSTEM: No focal deficits. REVIEW OF SYSTEMS: Cardiovascular system: No angina or palpitations. RESPIRATORY: As mentioned earlier. GASTROINTESTINAL: As mentioned earlier. no dysuria. NERVOUS SYSTEM: As mentioned earlier. Diffuse tremors. CURRENT MEDICATIONS: 1. [place] 5 mg q.6h p.r.n. 2. DuoNeb q.i.d. 3. Xanax 0.5 t.i.d. 4. Cordarone 200 mg daily. 5. Lipitor 10 mg daily. 6. Symbicort 160/4.5 two puffs b.i.d. 7. Rocephin 2 g daily. 8. Vitamin D2. 9. Lasix 40 mg daily. 10.Dilaudid 0.5 mg q.3 p.r.n. 11.NovoLog scale. 12.Levemir 20 units subcu q.h.s. 13.Zestril 5 mg p.o. daily. 14.Ativan 1 mg and 2 mg p.r.n. per [place] protocol. 15.Solu-Medrol 40 IV q.6h. 16.Lopressor 50 mg p.o. b.i.d. 17.Protonix. 18.Paxil. 19.MiraLAX. 20.Xarelto. 21.Topamax. 22.Doses are reviewed. LABORATORY DATA: The labs at this time WBC 13.1, hemoglobin 11, creatinine is 1.64, glucose 1203. ASSESSMENT: 1. Chronic obstructive pulmonary disease acute exacerbation with acute purulent tracheobronchitis. 2. Acute right-sided epididymo-orchitis, undetermined etiology with severe pain. 3. Acute delirium tremens. 4. Urinary tract infection present on admission with gram-negative bacilli. Final ID pending. 5. Increased creatinine with possible acute renal failure with acute tubular necrosis, prerenal renal failure. 6. Diabetes mellitus type 2, uncontrolled with hyperglycemia. 7. Hyponatremia. 8. History of anemia of chronic disease. 9. History of atrial flutter fibrillation. 10.History of congestive heart failure. 11.Chronic obstructive pulmonary disease. 12.Hypertension. 13.Hyperlipidemia. 14.History of myocardial infarction. 15.History of pulmonary embolism, on Xarelto. 16.History of nonischemic cardiomyopathy, ejection fraction 30-35 percent. 17.History of Graves' disease. 18.History of tremors. 19.History of squamous cell carcinoma. 20.History of Methicillin-resistant Staphylococcus aureus. 21.History of adenoidectomy, cholecystectomy. 22.History of anxiety. 23.Continued ongoing nicotine dependence. 24.History of ETOH. 25.FULL CODE. RECOMMENDATIONS AND DISCUSSION: Recommend to continue current medications, continue to monitor, symptomatic treatment. Otherwise, at this time, I recommend continue with bronchodilators. Continue with steroids. Continue the broad-spectrum IV antibiotics. Await final ID of the organisms. Otherwise, the creatinine is slightly worsened to 1.64 at this time. I recommend repeat labs. Guarded prognosis. Further recommendations to follow and guarded prognosis. MMODL / IJN: [id number] /
[2019-02-05] MEDS: BUDESONIDE 0.5 MG/2 ML NEBU INHALATION SCH (19:34)
[2019-02-05] MEDS ORDERED: IPRATROPIUM-ALBUTEROL 3 ML NEB INHALATION PRN (20:08)
[2019-02-05 20:31] LABS: Glucose,Whole Blood 166 mg/dL (75-99)
[2019-02-05] MEDS: QUEtiapine 100 MG TAB PO SCH (20:46)
[2019-02-05] MEDS: INSULIN DETEMIR (LEVEMIR) 100 UNIT/ML SYR SQ SCH (20:46)
[2019-02-05] MEDS: MONTELUKAST 10 MG TAB PO SCH (20:46)
[2019-02-05] MEDS: ATORVASTATIN 10 MG TAB PO SCH (20:46)
--- NOTE | 2019-02-06 01:03 | CONS ---
CONSULTATION Stone Law is a 53-year-old male who presents to the ER with a 2-day history of shortness of breath associated with wheezing and cough. He also had been complaining of some left lower quadrant and groin pain and some testicular pain as well. He subsequently was seen in the ER and admitted for further evaluation. PAST MEDICAL HISTORY: His past medical history is positive for severe COPD with an asthmatic component, history of congestive heart failure, history of obstructive sleep apnea for which he was unable to get a CPAP yet, even though he has apparently had his study. His past medical history is positive for atrial fibrillation, flutter, COPD, pulmonary hypertension, myocardial infarction and adenoidectomy, tonsillectomy, anxiety. FAMILY HISTORY: Family history is positive for CHF, coronary artery disease, CVA and TIA./ SOCIAL HISTORY: Social history positive for patient smokes about 1 pack of cigarettes per day. He drinks 4-5 drinks at least 4-5 times a week. MEDICATIONS: His medications prior to admission include Incruse Ellipta, Topamax, vitamin B1, Xarelto, Seroquel, MiraLAX, Protonix, Paxil, Lopressor, Zestril, Lasix, vitamin D2, Pulmicort Flexhaler, Lipitor, Pacerone, Ventolin. REVIEW OF SYSTEMS: Is noncontributory. PHYSICAL EXAMINATION: He is lying in bed. His blood pressure is 123/75, respiratory rate of 16, pulse rate of 62, temperature 97.3 degrees Fahrenheit, O2 saturation on 2 L by nasal cannula is 99%. HEENT reveals pupils are equal. Chest reveals diminished breath sounds with prolonged expiration with expiratory wheeze. Cardiovascular system reveals an S1, S2. Abdomen is soft. There is trace pedal edema. IMPRESSION: At this time is: 1. Asthma with chronic obstructive pulmonary disease with acute exacerbation. 2. Acute epididymo-orchitis. 3. Nicotine dependence. LABS: Reviewed, which showed white count of 5.5, hemoglobin of 11.6, sodium 135, potassium 3.7, chloride 101, bicarb 20, BUN 22, creatinine of 1.57. At this point in time from a pulmonary standpoint, would keep him on IV and aerosolized steroids. Keep him on leukotriene receptor antagonists. Doubt a significant respiratory infection, but would continue Rocephin which will cover for epididymo- orchitis per ID as well. Keep him on GI prophylaxis and continue anticoagulation regarding his atrial fibrillation and previous history of PE. His prognosis at this time is fair. He was counseled regarding his condition and this approach and has a fair understanding of our recommendations. MMODL / IJN: [id number] /
[2019-02-06 06:41] LABS: Glucose,Whole Blood 224 mg/dL (75-99)
[2019-02-06] MEDS: IPRATROPIUM-ALBUTEROL 3 ML NEB INHALATION SCH ×3 (07:42→20:58)
[2019-02-06] MEDS: BUDESONIDE 0.5 MG/2 ML NEBU INHALATION SCH ×2 (07:42→20:58)
[2019-02-06] MEDS: INSULIN ASPART (NovoLOG) 100 UNIT/ML VIAL SQ SCH ×7 (07:55→22:13)
[2019-02-06] MEDS: PANTOPRAZOLE 40 MG TABLET PO SCH (07:57)
[2019-02-06] MEDS: AMIODARONE 200 MG TAB PO SCH (07:57)
[2019-02-06] MEDS: PARoxetine 20 MG TAB PO SCH (07:57)
[2019-02-06] MEDS: METOPROLOL TARTRATE 50 MG TAB PO SCH ×2 (07:57→22:13)
[2019-02-06] MEDS: THIAMINE 100 MG TAB PO SCH ×2 (07:57→17:06)
[2019-02-06] MEDS: TOPIRAMATE 25 MG TAB PO SCH ×2 (07:57→22:11)
[2019-02-06] MEDS: FUROSEMIDE 40 MG TAB PO SCH (07:57)
[2019-02-06] MEDS: LISINOPRIL 5 MG TAB PO SCH (07:57)
[2019-02-06] MEDS: POLYETHYLENE GLYCOL 3350 17 GM POWD.PACK PO SCH (07:58)
[2019-02-06] MEDS: RIVAROXABAN 20 MG TAB PO SCH (07:58)
[2019-02-06] MEDS: methylPREDNISolone SOD SUCCI 40 MG/ML 1 ML VIAL IV SCH ×2 (08:26→16:52)
[2019-02-06] MEDS: HYDROcodone/APAP 5-325MG 1 EACH TAB PO PRN ×2 (08:26→17:09)
[2019-02-06 09:15] LABS: Basophils % (A) 0 %; Eosinophils % (A) 0 %; HCT 34.1 % (39.0-53.0); HGB 10.9 gm/dL (13.0-17.5); Hypochromasia Slight; Lymphocytes # (A) 0.7 k/uL (1.0-4.8); Lymphocytes % (A) 8 %; MCH 30.4 pg (25.0-35.0); MCHC 32.1 g/dL (31.0-37.0); MCV 94.7 fL (80.0-100.0); Mean Platelet Volume 7.2; Monocytes # (A) 0.3 k/uL (0-1.0); Monocytes % (A) 3 %; Neutrophils # (A) 7.4 k/uL (1.3-7.7); Neutrophils % (A) 88 %; Platelet Count 267 k/uL (150-450); RDW 15.1 % (11.5-15.5); WBC 8.4 k/uL (3.8-10.6)
[2019-02-06 09:36] LABS: Calcium 8.9 mg/dL (8.4-10.2); Potassium 4.8 mmol/L (3.5-5.1)
[2019-02-06 11:33] LABS: Glucose,Whole Blood 273 mg/dL (75-99)
[2019-02-06 16:45] LABS: Glucose,Whole Blood 258 mg/dL (75-99)
--- NOTE | 2019-02-06 18:57 | P.GSCN ---
History of Present Illness Consult date: 02/06/19 Reason for Consult: right epidydimitis Requesting physician: Nicole Grider History of present illness: Mr Parmar is 53 yo male that is currently admitted to the hospital for UTI. Urology Is consulte for concern of possible orchitis. He indicated for the past week he is been complaining of right sided scrotal pain and dysuria. Denies any hematuria or flank pain. no hx of UTI. At baseline he denies any urinary compl aints. No hx of STDs, or unprotected intercourse. Jabari any surgeries He indicated since admission his pain and swelling has improved. Review of Systems - Constitutional Denies fever, Denies weakness - Respiratory Reports dyspnea, Reports wheezing - Gastrointestinal Reports as per HPI, Denies abdominal pain, Denies nausea, Denies vomiting - Genitourinary Reports dysuria, Reports testicular pain - Psychiatric Denies anxiety, Denies confusion Past Medical History Past Medical History: Atrial Fibrillation, Atrial Flutter, Cancer, Chest Pain / Angina, Heart Failure, COPD, Hyperlipidemia, Hypertension, Myocardial Infarction (SD), Pneumonia, Pulmonary Embolus (PE), Syncope, Thyroid Disorder Additional Past Medical History / Comment(s): Nonischemic cardiomyopathy with an ejection fraction of 30-35%, Graves disease, tremors, pulmonary embolism 04/22/2016, squamous cell skin cancer with removal, severe fall down flight of steps in 2016-was in ICU w/fx. ribs,pneumonthorax/hemothorax required chest tubes,past resp failure requiring vent/trach. chronic alcoholism, recent admission for SOB, see Dr Martins [facility] Last Myocardial Infarction Date:: October 2016 History of Any Multi-Drug Resistant Organisms: MRSA Year Discovered:: 05/24/17 MDRO Source:: bronch/sputum Past Surgical History: Adenoidectomy, Cholecystectomy, Tonsillectomy Additional Past Surgical History / Comment(s): 12/23/17 cardiac ablation for a flutter, RT HAND SX (TENDON REPAIR).RT THIGH SKIN LESION EXCISION(SQUAMOUS CELL CARCINOMA), functional endoscopic sinus surgery/septoplasty,chest tube/ trach & feeding tube 2016 after a fall, bronchoscopy. Past Anesthesia/Blood Transfusion Reactions: No Reported Reaction Past Psychological History: Anxiety Additional Psychological History / Comment(s): Single, continues to drink, does live with his brother, no animals in the home, medically disabled. No experience. No animals in the home Smoking Status: Current every day smoker Past Alcohol Use History: Heavy Past Drug Use History: None Reported - Past Family History Mother Family Medical History: Cancer, Congestive Heart Failure (CHF), Coronary Artery Disease (CAD), CVA/TIA Additional Family Medical History / Comment(s): Mother had throat cancer and of this at the age of 68yrs. Father Additional Family Medical History / Comment(s): IN [place] WHEN PT WAS 1 YEARS OLD. Medications and Allergies Home Medications Medication Instructions Recorded Confirmed Type Amiodarone HCl [Pacerone] 200 mg PO DAILY 07/23/17 02/03/19 History PARoxetine HCL [Paxil] 40 mg PO DAILY 07/23/17 02/03/19 History QUEtiapine [SEROquel] 100 mg PO HS 07/23/17 02/03/19 History Rivaroxaban [Xarelto] 20 mg PO DAILY 07/23/17 02/03/19 History Thiamine [Vitamin B-1] 100 mg PO BID 07/23/17 02/03/19 History Albuterol Inhaler [Ventolin Hfa 2 puff INHALATION RT-Q6H PRN 12/17/17 02/03/19 History Inhaler] Albuterol Nebulized [Ventolin 2.5 mg INHALATION RT-TID 12/17/17 02/03/19 History Nebulized] Atorvastatin [Lipitor] 10 mg PO HS 12/17/17 02/03/19 History Metoprolol Tartrate [Lopressor] 50 mg PO BID 12/17/17 02/03/19 History Pantoprazole [Protonix] 40 mg PO DAILY 12/17/17 02/03/19 History Umeclidinium [place] [Incruse 1 puff INHALATION RT-DAILY 12/17/17 02/03/19 History Ellipta] Budesonide [Pulmicort Flexhaler] 2 puff INHALATION RT-BID 01/03/18 02/03/19 History Lisinopril [Zestril] 5 mg PO DAILY #30 tab 01/05/18 02/03/19 Rx Ergocalciferol [Vitamin D2] 50,000 unit PO MOWEFR 02/03/19 02/03/19 History Furosemide [Lasix] 40 mg PO DAILY 02/03/19 02/03/19 History Polyethylene Glycol 3350 [Miralax] 17 gm PO DAILY 02/03/19 02/03/19 History Topiramate [Topamax] 25 mg PO BID 02/03/19 02/03/19 History Allergies Allergy/AdvReac Type Severity Reaction Status Date / Time warfarin [From Coumadin] AdvReac MAKES Verified 02/03/19 14:27 BLOOD TOO THIN Surgical - Exam Vital Signs Temp Pulse Resp BP Pulse Ox 99.2 F 108 H 18 134/86 99 02/03/19 13:37 02/03/19 13:37 02/03/19 13:37 02/03/19 13:37 02/03/19 13:37 - General no distress, moderate pain - Respiratory normal expansion, normal respiratory effort - Abdomen Abdomen: soft, non tender - Genitourinary normal penis with no external lesions, other (Right-sided epididymal induration, no abscess appreciated. normal left scrotal exam) - Psychiatric oriented to time, oriented to person, oriented to place Results - Labs 02/06/19 08:47 02/06/19 08:47 Abnormal Lab Results - Last 24 Hours (Table) 02/05/19 02/05/19 02/06/19 Range/Units 16:37 20:05 06:26 RBC (4.30-5.90) m/uL Hgb (13.0-17.5) gm/dL Hct (39.0-53.0) % Lymphocytes # (1.0-4.8) k/uL BUN (9-20) mg/dL Creatinine (0.66-1.25) mg/dL Glucose (74-99) mg/dL POC Glucose (mg/dL) 191 H 166 H 224 H (75-99) mg/dL 02/06/19 02/06/19 02/06/19 Range/Units 08:47 08:47 11:29 RBC 3.60 L (4.30-5.90) m/uL Hgb 10.9 L (13.0-17.5) gm/dL Hct 34.1 L (39.0-53.0) % Lymphocytes # 0.7 L (1.0-4.8) k/uL BUN 39 H (9-20) mg/dL Creatinine 1.51 H (0.66-1.25) mg/dL Glucose 315 H (74-99) mg/dL POC Glucose (mg/dL) 273 H (75-99) mg/dL Microbiology - Last 24 Hours (Table) 02/03/19 18:38 Blood Culture - Preliminary Blood No Growth after 48 hours 02/03/19 15:00 Urine Culture - Final Urine,Voided Klebsiella pneumoniae Diabetes panel 02/06/19 Range/Units 08:47 Sodium 139 (137-145) mmol/L Potassium 4.8 (3.5-5.1) mmol/L Chloride 106 (98-107) mmol/L Carbon Dioxide 25 (22-30) mmol/L BUN 39 H (9-20) mg/dL Creatinine 1.51 H (0.66-1.25) mg/dL Glucose 315 H (74-99) mg/dL Calcium 8.9 (8.4-10.2) mg/dL Calcium panel 02/06/19 Range/Units 08:47 Calcium 8.9 (8.4-10.2) mg/dL Pituitary panel 02/06/19 Range/Units 08:47 Sodium 139 (137-145) mmol/L Potassium 4.8 (3.5-5.1) mmol/L Chloride 106 (98-107) mmol/L Carbon Dioxide 25 (22-30) mmol/L BUN 39 H (9-20) mg/dL Creatinine 1.51 H (0.66-1.25) mg/dL Glucose 315 H (74-99) mg/dL Calcium 8.9 (8.4-10.2) mg/dL Adrenal panel 02/06/19 Range/Units 08:47 Sodium 139 (137-145) mmol/L Potassium 4.8 (3.5-5.1) mmol/L Chloride 106 (98-107) mmol/L Carbon Dioxide 25 (22-30) mmol/L BUN 39 H (9-20) mg/dL Creatinine 1.51 H (0.66-1.25) mg/dL Glucose 315 H (74-99) mg/dL Calcium 8.9 (8.4-10.2) mg/dL - Imaging US - pelvic: report reviewed Assessment and Plan Assessment: 53-year-old male admitted for UTI and a right-sided epididymitis, no evidence of torsion or abscess (1) Testicular pain, right Current Visit: Yes Status: Acute Priority: Medium Code(s): N50.811 - RIGHT TESTICULAR PAIN SNOMED Code(s): 92235999 Plan: Continue antibiotics can discharge on oral abx. Will need abx for 14 days Elevate the scrotum F/U in Urology Clinic in 2-3 weeks
--- NOTE | 2019-02-06 19:19 | PN ---
PROGRESS NOTE DATE OF SERVICE: 02/06/2019 This 53-year-old gentleman who was admitted with significant difficulties with COPD and right-sided epididymo-orchitis is being closely monitored at this time. No chest pain. No palpitations. The patient is still complaining of pain and some thickness of the right . The patient is on broad-spectrum IV antibiotics. No chest pain or palpitations. On exam, alert and oriented x3. Pulse 67, blood pressure 160/98, respiration 18, temperature 97.4, pulse ox 99% on 2 L. HEENT: Conjunctivae normal. NECK: No jugular venous distention. CARDIOVASCULAR SYSTEM: S1, S2 muffled. RESPIRATORY SYSTEM: Breath sounds diminished at the bases. Bilateral scattered rhonchi and crackles. ABDOMEN: Soft, non-tender. LEGS: No edema. No swelling. NERVOUS SYSTEM: No focal deficit. LABS: WBC 8.5, hemoglobin 10.9. Sodium 139, potassium 4.8. ASSESSMENT: 1. Chronic obstructive pulmonary disease, acute exacerbation, with acute purulent tracheobronchitis. 2. Acute right-sided epididymo-orchitis; undetermined etiology; with severe pain. 3. Acute delirium tremens. 4. Urinary tract infection, present on admission, with gram-negative bacilli. Final ID pending. 5. Increased creatinine with possible acute renal failure with acute tubular necrosis prerenal renal failure. 6. Diabetes mellitus, type 2, uncontrolled, with hyperglycemia. 7. Hyponatremia. 8. History of anemia of chronic disease. 9. History of atrial flutter/fibrillation. 10.History of congestive heart failure. 11.Chronic obstructive pulmonary disease. 12.Hypertension. 13.Hyperlipidemia. 14.History of myocardial infarction. 15.History of pulmonary embolism; on Xarelto. 16.History of nonischemic cardiomyopathy, ejection fraction 30% to 35%. 17.History of Graves' disease. 18.History of tremors. 19.History of squamous cell carcinoma. 20.History of methicillin-resistant Staphylococcus aeruginosa. 21.History of adenoidectomy. 22.Cholecystectomy. 23.History of anxiety. 24.Continued ongoing nicotine dependence. 25.History of ethanol. 26.FULL CODE. RECOMMENDATIONS AND DISCUSSION: I recommend to continue current medications, continue with the monitoring, symptomatic treatment. Monitor closely. Urology evaluation. Closely follow with Infectious Disease and Pulmonary. Further recommendations to follow. MMODL / IJN: [id number] / PARTHA
[2019-02-06 20:32] LABS: Glucose,Whole Blood 239 mg/dL (75-99)
[2019-02-06] MEDS: ATORVASTATIN 10 MG TAB PO SCH (22:11)
[2019-02-06] MEDS: MONTELUKAST 10 MG TAB PO SCH (22:11)
[2019-02-06] MEDS: INSULIN DETEMIR (LEVEMIR) 100 UNIT/ML SYR SQ SCH (22:12)
[2019-02-06] MEDS: HYDROmorphone 0.5 MG/0.5 ML SYRINGE IVP PRN (22:14)
[2019-02-06 22:17] VITALS: RESP 18
[2019-02-06] MEDS: QUEtiapine 100 MG TAB PO SCH (22:36)
[2019-02-06] MEDS: ERGOCALCIFEROL 50,000 UNIT CAP PO SCH (22:36)
--- NOTE | 2019-02-06 22:40 | PN ---
PROGRESS NOTE DATE OF SERVICE: February 06, 2019. He has been hemodynamically stable. He is less short of breath. Continues to have testicular pain. On physical examination, he is lying in bed. He was in no respiratory distress. HEENT reveals pupils are equal. Chest with decreased breath sounds with prolonged exhalation. Wheeze only on forced exhalation. Cardiovascular system: Revealed an S1, S2. Abdomen is soft. There is trace pedal edema. IMPRESSION: At this time is: 1. Asthma with chronic obstructive pulmonary disease with acute exacerbation. 2. Previous tracheostomy. 3. Epididymo-orchitis. Continue him on his current medications including IV steroids, bronchodilators, aerosolized steroids. His prognosis at this time is fair. His vital signs were reviewed and were stable. MMODL / IJN: [id number] /
--- NOTE | 2019-02-06 23:34 | P.PN ---
Subjective Progress Note Date: 02/06/19 53-year-old male who is known history of chronic alcoholism, chronic tobacco use and multiple medical troubles that includes underlying ischemic cardiomyopathy, cardiac dysrhythmia and a history of hemopneumothorax status post fall with the right-sided chest injury. At that time. Respiratory failure and was intubated and sedated. Eventually he improved but now has ongoing alcohol use and tobacco use. He relates a couple days ago started to feel poorly he blistered have bit of fever and then he had the sudden onset of pain into his right testicle and related that he had significant urinary urgency significant pain with urination and has very small urine volumes. The urine was not significantly malodorous but it was dark and cloudy. He's not had this trouble in the past. He has had no recent sexual encounters it's actually been several years since sexual activity. He has no trauma to the testicle or to the groin. He does relate that before the start he did have an acute lonnie roenteritis about a four-day cycle of diarrhea. That has resolved with no hematemesis melena or hematochezia. 02/06/2019 the patient is showing improvement within the last day. The significant swelling and tenderness and pain to the right testicle and right groin have improved. His fevers have started to improve. Cultures become available. Objective - Vital Signs Vital signs: Vital Signs Temp 98.0 F 02/06/19 20:30 Pulse 60 02/06/19 21:16 Resp 18 02/06/19 20:30 BP 114/70 02/06/19 20:30 Pulse Ox 99 02/06/19 20:58 Intake & Output 02/06/19 02/06/19 02/07/19 06:59 18:59 06:59 Intake Total 440 Output Total 800 300 Balance -360 -300 Intake: Oral 240 Other 200 Output: Urine 800 300 Other: Voiding Method Toilet # Voids 1 # Bowel Movements 1 - Exam 53-year-old male, short stature with muscular wasting HEENT: Anicteric conjunctiva are pink and moist nasal mucosa grossly intact without significant lesions, there is no thrush. Neck: The neck is supple without significant lymphadenopathy or thyromegaly. Lungs: Good bilateral air entry without significant crackles or wheezing. There is no significant bronchial sounds. There is no egophony or dullness. Heart: Regular rate and rhythm with an audible S1-S2, no S3 no S4. There is no significant murmur click or rub, PMI was nondisplaced. Abdomen: Minimally distended Positive bowel sounds soft and nontender without palpable masses or organomegaly. There was no guarding or rebound. Extremities: The upper extremities have excellent pulses they are symmetric, no significant petechiae or telangiectasia. No splinter hemorrhages were noted. The lower extremities are free from significant edema. The peripheral pulses were 2+ and symmetric. Neuro: Awake alert oriented to person place and time. There are no acute new gross focal sensory motor deficits. Genitalia reveals evidence of the improved swelling to the right epididymis and it is less tender. There is also some minimal tenderness to the right inguinal area. There are no lesions on the shaft of the penis around the testicles themselves. There is no rash or ulcers. There is no penile drainage. Left testicle is completely nontender. No lymphadenopathy in the left groin. No o ther abnormal lymph nodes were noted. - Labs CBC & Chem 7: 02/06/19 08:47 02/06/19 08:47 Labs: Abnormal Lab Results - Last 24 Hours (Table) 02/06/19 02/06/19 02/06/19 Range/Units 06:26 08:47 08:47 RBC 3.60 L (4.30-5.90) m/uL Hgb 10.9 L (13.0-17.5) gm/dL Hct 34.1 L (39.0-53.0) % Lymphocytes # 0.7 L (1.0-4.8) k/uL BUN 39 H (9-20) mg/dL Creatinine 1.51 H (0.66-1.25) mg/dL Glucose 315 H (74-99) mg/dL POC Glucose (mg/dL) 224 H (75-99) mg/dL 02/06/19 02/06/19 02/06/19 Range/Units 11:29 16:44 20:30 RBC (4.30-5.90) m/uL Hgb (13.0-17.5) gm/dL Hct (39.0-53.0) % Lymphocytes # (1.0-4.8) k/uL BUN (9-20) mg/dL Creatinine (0.66-1.25) mg/dL Glucose (74-99) mg/dL POC Glucose (mg/dL) 273 H 258 H 239 H (75-99) mg/dL Microbiology - Last 24 Hours (Table) 02/03/19 18:38 Blood Culture - Preliminary Blood No Growth after 72 hours Laboratory Results WBC 8.4 k/uL (3.8-10.6) 02/06/19 08:47 RBC 3.60 m/uL (4.30-5.90) L 02/06/19 08:47 Hgb 10.9 gm/dL (13.0-17.5) L 02/06/19 08:47 Hct 34.1 % (39.0-53.0) L 02/06/19 08:47 MCV 94.7 fL (80.0-100.0) 02/06/19 08:47 MCH 30.4 pg (25.0-35.0) 02/06/19 08:47 MCHC 32.1 g/dL (31.0-37.0) 02/06/19 08:47 RDW 15.1 % (11.5-15.5) 02/06/19 08:47 Plt Count 267 k/uL (150-450) 02/06/19 08:47 Neutrophils % 88 % 02/06/19 08:47 Lymphocytes % 8 % 02/06/19 08:47 Monocytes % 3 % 02/06/19 08:47 Eosinophils % 0 % 02/06/19 08:47 Basophils % 0 % 02/06/19 08:47 Neutrophils # 7.4 k/uL (1.3-7.7) 02/06/19 08:47 Lymphocytes # 0.7 k/uL (1.0-4.8) L 02/06/19 08:47 Monocytes # 0.3 k/uL (0-1.0) 02/06/19 08:47 Eosinophils # 0.0 k/uL (0-0.7) 02/06/19 08:47 Basophils # 0.0 k/uL (0-0.2) 02/06/19 08:47 Hypochromasia Slight 02/06/19 08:47 PT 10.8 sec (9.0-12.0) 02/03/19 14:57 INR 1.0 (<1.2) 02/03/19 14:57 APTT 24.4 sec (22.0-30.0) 02/03/19 14:57 Sodium 139 mmol/L (137-145) 02/06/19 08:47 Potassium 4.8 mmol/L (3.5-5.1) 02/06/19 08:47 Chloride 106 mmol/L (98-107) 02/06/19 08:47 Carbon Dioxide 25 mmol/L (22-30) 02/06/19 08:47 Anion Gap 8 mmol/L 02/06/19 08:47 BUN 39 mg/dL (9-20) H 02/06/19 08:47 Creatinine 1.51 mg/dL (0.66-1.25) H 02/06/19 08:47 Est GFR (CKD-EPI)AfAm 60 (>60 ml/min/1.73 sqM) 02/06/19 08:47 Est GFR (CKD-EPI)NonAf 52 (>60 ml/min/1.73 sqM) 02/06/19 08:47 Glucose 315 mg/dL (74-99) H 02/06/19 08:47 POC Glucose (mg/dL) 239 mg/dL (75-99) H 02/06/19 20:30 POC Glu Dry Chain Worker ID Cherelle Abdullahi 02/06/19 20:30 Calcium 8.9 mg/dL (8.4-10.2) 02/06/19 08:47 Magnesium 1.8 mg/dL (1.6-2.3) 02/03/19 14:57 Total Bilirubin 0.7 mg/dL (0.2-1.3) 02/03/19 14:57 AST 33 U/L (17-59) 02/03/19 14:57 ALT 43 U/L (21-72) 02/03/19 14:57 Alkaline Phosphatase 80 U/L (38-126) 02/03/19 14:57 Troponin I 0.012 ng/mL (0.000-0.034) 02/03/19 14:57 NT-Pro-B Natriuret Pep 523 pg/mL 02/03/19 14:57 Total Protein 7.3 g/dL (6.3-8.2) 02/03/19 14:57 Albumin 3.6 g/dL (3.5-5.0) 02/03/19 14:57 Urine Color Yellow 02/03/19 15:00 Urine Appearance Cloudy (Clear) 02/03/19 15:00 Urine pH 5.5 (5.0-8.0) 02/03/19 15:00 Ur Specific [place] 1.015 (1.001-1.035) 02/03/19 15:00 Urine Protein 1+ (Negative) H 02/03/19 15:00 Urine Glucose (UA) Trace (Negative) H 02/03/19 15:00 Urine Ketones 1+ (Negative) H 02/03/19 15:00 Urine Blood Moderate (Negative) H 02/03/19 15:00 Urine Nitrite Negative (Negative) 02/03/19 15:00 Urine Bilirubin Negative (Negative) 02/03/19 15:00 Urine Urobilinogen <2.0 mg/dL (<2.0) 02/03/19 15:00 Ur Leukocyte Esterase Large (Negative) H 02/03/19 15:00 Urine RBC 19 /hpf (0-5) H 02/03/19 15:00 Urine WBC 78 /hpf (0-5) H 02/03/19 15:00 Urine WBC Clumps Few /hpf (None) H 02/03/19 15:00 Ur Squamous Epith Cells 1 /hpf (0-4) 02/03/19 15:00 Urine Bacteria Occasional /hpf (None) H 02/03/19 15:00 Hyaline Casts 1 /lpf (0-2) 02/03/19 15:00 Urine Mucus Rare /hpf (None) H 02/03/19 15:00 Microbiology 02/03/19 18:38 Blood Blood Culture - Preliminary No Growth after 72 hours 02/03/19 15:00 Urine,Voided Urine Culture - Final Klebsiella pneumoniae Assessment and Plan (1) Epididymo-orchitis, acute Narrative/Plan: 53-year-old male presents to hospital with the sudden onset of significant discomfort and pain to his right testicle associated with significant dysuria urinary urgency and small bladder volume. It is not on for a few days the symptoms markedly worsened he be lividity charted have a fever and constantly presents to Hospital. Ultrasounds were performed and shows evidence of the bit of a hydrocele but clinically has epididymoorchitis with a significant infectio n. Urinalysis is abnormal and urine blood cultures are pending. Admission there was evidence of significant hyperglycemia due to his uncontrolled diabetes. His white count has fallen to 3.6 in counseling Zosyn and is transitioned to Rocephin. He did have evidence of significant dehydration with acute increase of his creatinine which is improving from 1.57-1.48 with hydration over the last few hours. He does have a history of MRSA and consequently vancomycin is also indicated this point in time until there is further data. The patient is not sexually active. He did have a antecedent gastroenteritis which may have predisposed him to the current urogenital infection especially with his poor hygiene. Cultures for further help direct course of antibiotic therapy as he improves and radius for discharge. 02/06/2019 patient is exhibiting improvement of his infection with decreasing swelling and decreasing pain is having a clinical response to the current antibiotic therapy and seems responding well to the Rocephin and vancomycin. Laboratory reveals Klebsiella pneumoniae which is relatively susceptible. The vancomycin is discontinued. We'll continue Rocephin until his discharge and I would plan oral Bactrim to complete the couple week course of therapy. Current Visit: Yes Status: Acute Code(s): N45.3 - EPIDIDYMO-ORCHITIS SNOMED Code(s): 975037042 (2) Fever Current Visit: Yes Status: Acute Code(s): R50.9 - FEVER, UNSPECIFIED SNOMED Code(s): 844071090 (3) COPD with acute exacerbation Current Visit: Yes Status: Acute Code(s): J44.1 - CHRONIC OBSTRUCTIVE PULMONARY DISEASE W (ACUTE) EXACERBATION SNOMED Code(s): 250821380
[2019-02-07] MEDS: methylPREDNISolone SOD SUCCI 40 MG/ML 1 ML VIAL IV SCH ×2 (00:09→07:53)
[2019-02-07] MEDS: HYDROcodone/APAP 5-325MG 1 EACH TAB PO PRN ×2 (01:38→07:54)
[2019-02-07] MEDS: HYDROmorphone 0.5 MG/0.5 ML SYRINGE IVP PRN ×2 (04:39→10:25)
[2019-02-07 05:33] VITALS: BP 132/82; TEMP 97.8
[2019-02-07] MEDS: IPRATROPIUM-ALBUTEROL 3 ML NEB INHALATION SCH ×2 (07:03→13:14)
[2019-02-07] MEDS: BUDESONIDE 0.5 MG/2 ML NEBU INHALATION SCH (07:03)
[2019-02-07 07:11] LABS: Glucose,Whole Blood 215 mg/dL (75-99)
[2019-02-07] MEDS: AMIODARONE 200 MG TAB PO SCH (07:53)
[2019-02-07] MEDS: THIAMINE 100 MG TAB PO SCH (07:53)
[2019-02-07] MEDS: PARoxetine 20 MG TAB PO SCH (07:53)
[2019-02-07] MEDS: PANTOPRAZOLE 40 MG TABLET PO SCH (07:53)
[2019-02-07] MEDS: LISINOPRIL 5 MG TAB PO SCH (07:53)
[2019-02-07] MEDS: METOPROLOL TARTRATE 50 MG TAB PO SCH (07:53)
[2019-02-07] MEDS: FUROSEMIDE 40 MG TAB PO SCH (07:54)
[2019-02-07] MEDS: INSULIN ASPART (NovoLOG) 100 UNIT/ML VIAL SQ SCH ×4 (07:54→12:53)
[2019-02-07] MEDS ORDERED: RIVAROXABAN 15 MG TAB PO SCH (09:00)
--- NOTE | 2019-02-07 10:36 | CDI ---
Documentation Clarification Form Date: 02/07/2019 10:22:15 AM From: Camille HernandezBIMAL, CCDS Admit Date: 02/04/2019 10:55:00 AM Patient Name: Stone Law Visit Number: [id number] Discharge Date: ATTENTION: The Clinical Documentation Specialists (CDI) and [facility] Coding Staff appreciate your assistance in clarifying documentation. Please respond to the clarification below the line at the bottom and electronically sign. The CDI & [facility] Coding staff will review the response and follow-up if needed. Please note: Queries are made part of the Legal Health Record. If you have any questions, please contact the author of this message via ITS. Dr. Maurilio Chaparro: Asthma is documented in the 02/05 pulmonary consult: "Asthma with chronic obstructive pulmonary disease with acute exacerbation." History/risk factors: Asthma, COPD, CHF nos, Nicotine dependence, Alcohol dependence, ISABEL, Atrial fibrillation, Atrial flutter, DM II, Pulmonary Hypertension & [place]. Clinical Indicators: Presented with SOB, cough & wheezing, also complained of right testicular pain, being treated for Acute COPD exacerbation & Epididymo- orchitis with UTI. Radiology: CXR: no evidence of acute pulmonary disease. Vital Signs: T 99.2, P 108^, R 18, BP 134/86, PO 99 - 100 2Lnc Treatment: INH Albuterol, IV Morphine Sulfate, IV Rocephin, IV MagSulfate, IV Solumedrol, IV Ativan, Vit B-1, O2 2Lnc. In your professional opinion, can you please further specify the following, if known? With: o Acute Exacerbation o Status asthmaticus o Other, please specify ___ o Unable to determine Severity: o Mild intermittent o Mild persistent o Moderate persistent o Severe persistent o Other, please specify ____ o Unable to determine Form or Type: o Cough variant o Childhood o Extrinsic allergic o Idiosyncratic o Intrinsic nonallergic o Late-onset o Mixed o Other, please specify____ o Unable to determine (Last Revision: September 2017) MTDD
[2019-02-07] MEDS: POLYETHYLENE GLYCOL 3350 17 GM POWD.PACK PO SCH (11:00)
[2019-02-07 12:24] LABS: Glucose,Whole Blood 242 mg/dL (75-99)
[2019-02-07] MEDS ORDERED: predniSONE 20 MG TAB PO SCH (13:15)
[2019-02-07 13:27] VITALS: PULSE 64
--- NOTE | 2019-02-07 14:09 | PN ---
PROGRESS NOTE The patient was seen again on 02/07/2019. He has been hemodynamically stable and has been admitted to the hospital and is on the 4th floor. He continues to have shortness of breath, but it is less overall. On physical examination his blood pressure is 132/82, respiratory rate of 18, pulse of 53, temperature 97.8, O2 saturation on room air is 97%. HEENT: Unremarkable except for previous scar of tracheostomy in his neck. CHEST: Reveals prolonged exhalation. Wheeze only on forced exhalation. CARDIOVASCULAR SYSTEM: S1, S2. ABDOMEN: Soft, There is no edema. IMPRESSION: 1. Asthma with chronic obstructive pulmonary disease with acute exacerbation. 2. Epididymo-orchitis. 3. Obesity. At this point in time from a pulmonary standpoint, would switch him to oral steroids. Continue with bronchodilators. MMODL / IJN: [id number] /
--- NOTE | 2019-02-07 21:27 | DS ---
DISCHARGE SUMMARY DATE OF SERVICE: 02/07/2019. FINAL DIAGNOSES: 1. Chronic obstructive pulmonary disease acute exacerbation with acute purulent tracheobronchitis. 2. Acute right-sided epididymo-orchitis of undetermined etiology with severe pain, improving. 3. Acute delirium tremens, improving. 4. Urinary tract infection present on admission with Klebsiella pneumonia sensitive, present on admission. 5. Increased creatinine with possible acute renal failure with acute tubular necrosis with prerenal failure present on admission. 6. Diabetes type 2, uncontrolled with hyperglycemia. 7. Hyponatremia. 8. History of anemia of chronic disease. 9. History of atrial flutter fibrillation. 10.History of congestive heart failure, ejection fraction unknown. 11.Chronic obstructive pulmonary disease. 12.Hypertension. 13.Hyperlipidemia. 14.History of myocardial infarction. 15.History of pulmonary embolism on Xarelto. 16.History of nonischemic cardiomyopathy, ejection fraction 30 to 35%. 17.History of Graves' disease. 18.History of tremors. 19.History of squamous cell carcinoma. 20.History of MRSA. 21.History of adenoidectomy. 22.History of cholecystectomy. 23.History of anxiety. 24.Continued . DISCHARGE DISPOSITION: The patient will be discharged in stable condition with guarded prognosis. Total time taken 35 minutes. HISTORY OF PRESENT ILLNESS: This 53-year-old gentleman with a past medical history of multiple medical problems, admitted with COPD and epididymo orchitis. Patient treated symptomatically with antibiotics. Multiple complaints including S. P. Chaparro as well as Infectious Disease, Dr. Malcolm saw the patient during the hospitalization. Patient was significantly. Patient being discharge in stable condition with guarded prognosis. Urology also saw the patient. Dr. Camara recommended outpatient followup. On exam, vitals are stable. Cardio system: S1, S2. Abdomen soft. Nervous system: No focal deficits. DISCHARGE ADVICE AND MEDICATIONS: 1. Diet is cardiac diet. 2. Activity limited until followup. 3. We will follow up with Dr. Mónica Acosta in 1-2 days. 4. Follow up with Urology as well as Dr. Malcolm as recommended. DISCHARGE MEDICATIONS: 1. Incruse Ellipta 1 puff daily. 2. Lasix 40 mg p.o. daily. 3. Lipitor 10 mg q.h.s. 4. Lopressor 50 mg p.o. b.i.d. 5. MiraLAX 17 g p.o. daily. 6. Pacerone 200 mg p.o. daily. 7. Paxil 40 mg p.o. daily. 8. Protonix 40 mg p.o. daily. 9. Pulmicort 1 to 2 puffs b.i.d. 10.Zoloft 100 mg p.o. q.h.s. 11.Topamax 25 mg p.o. b.i.d. 12.Ventolin HFA 2 puffs q.6h p.r.n. 13.Vitamin B1, 100 mg p.o. b.i.d. 14.Drisdol 38460 p.o. Wednesday, Wednesday, Wednesday. 15.Bactrim DS 1 p.o. b.i.d. for 14 days. 16.Prednisone 10 mg taper. 17.Singulair 10 mg q.h.s. 18.Xarelto 15 mg p.o. daily. 19.Zestril 5 mg p.o. daily. CBC BMP with Dr. Mónica Acosta. Follow up in the outpatient setting. MMODL / IJN: [id number] /
--- NOTE | 2019-02-08 07:38 | CDI ---
Documentation Clarification Form Date: 02/07/2019 10:22:00 AM From: Camille HarringtonHernandezBIMAL, CCDS Admit Date: 02/04/2019 10:55:00 AM Patient Name: Stone Law Visit Number: [id number] Discharge Date: 02/07/2019 4:24:00 PM ATTENTION: The Clinical Documentation Specialists (CDI) and [facility] Coding Staff appreciate your assistance in clarifying documentation. Please respond to the clarification below the line at the bottom and electronically sign. The CDI & [facility] Coding staff will review the response and follow-up if needed. Please note: Queries are made part of the Legal Health Record. If you have any questions, please contact the author of this message via ITS. Dr. Maurilio Chaparro: Asthma is documented in the 02/05 pulmonary consult: "Asthma with chronic obstructive pulmonary disease with acute exacerbation." History/risk factors: Asthma, COPD, CHF nos, Nicotine dependence, Alcohol dependence, ISABEL, Atrial fibrillation, Atrial flutter, DM II, Pulmonary Hypertension & [place]. Clinical Indicators: Presented with SOB, cough & wheezing, also complained of right testicular pain, being treated for Acute COPD exacerbation & Epididymo- orchitis with UTI. Radiology: CXR: no evidence of acute pulmonary disease. Vital Signs: T 99.2, P 108^, R 18, BP 134/86, PO 99 - 100 2Lnc Treatment: INH Albuterol, IV Morphine Sulfate, IV Rocephin, IV MagSulfate, IV Solumedrol, IV Ativan, Vit B-1, O2 2Lnc. In your professional opinion, can you please further specify the following, if known? With: o Acute Exacerbation o Status asthmaticus o Other, please specify ___ o Unable to determine Severity: o Mild intermittent o Mild persistent o Moderate persistent o Severe persistent o Other, please specify ____ o Unable to determine Form or Type: o Cough variant o Childhood o Exercise induced bronchospasm o Extrinsic allergic o Idiosyncratic o Intrinsic nonallergic o Late-onset o Mixed o Other, please specify____ o Unable to determine (Last Revision: September 2017) MTDD
== END 2019-02-07 16:24 | disposition home or self-care (01) | DRG 190 ==
LOC: EC 13:11 → 1SOBS 17:20 → OBSVTOIN 02-04 10:55 → 4MS4W 02-06 17:46
PROVIDERS: ADMIT Hospitalist; ATTEND Hospitalist
DX: J44.0 Chronic obstructive pulmonary disease with (acute) lower respiratory infection (principal); N17.0 Acute kidney failure with tubular necrosis; N39.0 Urinary tract infection, site not specified; E87.1 Hypo-osmolality and hyponatremia; F10.231 Alcohol dependence with withdrawal delirium; I42.9 Cardiomyopathy, unspecified; J45.901 Unspecified asthma with (acute) exacerbation; J44.1 Chronic obstructive pulmonary disease with (acute) exacerbation; J20.9 Acute bronchitis, unspecified; I27.20 Pulmonary hypertension, unspecified; I11.0 Hypertensive heart disease with heart failure; I50.9 Heart failure, unspecified; E11.65 Type 2 diabetes mellitus with hyperglycemia; R16.1 Splenomegaly, not elsewhere classified; I48.91 Unspecified atrial fibrillation; E86.0 Dehydration; N43.3 Hydrocele, unspecified; N45.3 Epididymo-orchitis; D63.8 Anemia in other chronic diseases classified elsewhere; K52.9 Noninfective gastroenteritis and colitis, unspecified; G47.33 Obstructive sleep apnea (adult) (pediatric); E78.5 Hyperlipidemia, unspecified; F41.9 Anxiety disorder, unspecified; I25.2 Old myocardial infarction; F17.210 Nicotine dependence, cigarettes, uncomplicated; E66.9 Obesity, unspecified; Z68.31 Body mass index [BMI] 31.0-31.9, adult; Z79.01 Long term (current) use of anticoagulants; Z79.51 Long term (current) use of inhaled steroids; Z79.899 Other long term (current) drug therapy; Z87.01 Personal history of pneumonia (recurrent); Z86.39 Personal history of other endocrine, nutritional and metabolic disease; Z86.711 Personal history of pulmonary embolism; Z85.828 Personal history of other malignant neoplasm of skin; Z98.890 Other specified postprocedural states; Z91.81 History of falling; Z87.828 Personal history of other (healed) physical injury and trauma; Z86.14 Personal history of Methicillin resistant Staphylococcus aureus infection; Z90.49 Acquired absence of other specified parts of digestive tract; Z86.79 Personal history of other diseases of the circulatory system; Z88.8 Allergy status to other drugs, medicaments and biological substances; Z82.49 Family history of ischemic heart disease and other diseases of the circulatory system; Z80.0 Family history of malignant neoplasm of digestive organs; Z82.3 Family history of stroke
CPT/HCPCS: 36415; 51798; 71046; 74177; 76870; 80048; 80053; 81001; 83735; 83880; 84484; 85025; 85610; 85730; 87040; 87077; 87086; 87186; 93005; 93975; 94640; 94760; 96374; 96375; 99285

== ENCOUNTER 2019-02-15 09:26 | Emergency (ER) | payer OTHER ==
[2019-02-15 11:23] LABS: Appearance,Urine Clear (Clear); Bilirubin,Urine Negative (Negative); Blood,Urine Negative (Negative); Color,Urine Colorless; Glucose,Urine (UA) Trace (Negative); Ketones,Urine Negative (Negative); Leukocyte Esterase,Urine Negative (Negative); Nitrite,Urine Negative (Negative); Protein,Urine Negative (Negative); Specific Gravity,Urine 1.005 (1.001-1.035); Urobilinogen,Urine <2.0 mg/dL (<2.0)
--- NOTE | 2019-02-15 11:35 | ED ---
Recheck HPI - General Chief Complaint: Recheck/Abnormal Lab/Rx Stated Complaint: recheck testicular pain Time Seen by Provider: 02/15/19 09:46 Source: patient Mode of arrival: wheelchair Limitations: no limitations - History of Present Illness Initial Comments: 53-year-old male presenting for right-sided testicular pain. Patient states he has had the right-sided testicular pain for quite some time now. Patient states he was evaluated for this pain recently at this facility. Patient states he did ultrasound which revealed hydrocele. Patient states the pain has been persistent he states it felt slightly worse today. Patient denies any increase in swelling. Patient denies any color changes of the testicles. Patient has a fever click symptoms. Patient denies dysuria urgency frequency. Patient states he is compliant with his antibiotic prescription. Patient states he does have follow-up tomorrow with his primary care provider. Patient states he is to see a specialist. Patient denies history of hernia. Patient states that he has no significant abdominal pain. Denies nausea vomiting. Patient states he is having normal bowel movements dining melena hematochezia. Remaining review of system negative. Patient appears well signs of acute discomfort on gross examination. - Related Data Home Medications Medication Instructions Recorded Confirmed Amiodarone HCl [Pacerone] 200 mg PO DAILY 07/23/17 02/03/19 PARoxetine HCL [Paxil] 40 mg PO DAILY 07/23/17 02/03/19 QUEtiapine [SEROquel] 100 mg PO HS 07/23/17 02/03/19 Thiamine [Vitamin B-1] 100 mg PO BID 07/23/17 02/03/19 Albuterol Inhaler [Ventolin Hfa 2 puff INHALATION RT-Q6H PRN 12/17/17 02/03/19 Inhaler] Albuterol Nebulized [Ventolin 2.5 mg INHALATION RT-TID 12/17/17 02/03/19 Nebulized] Atorvastatin [Lipitor] 10 mg PO HS 12/17/17 02/03/19 Metoprolol Tartrate [Lopressor] 50 mg PO BID 12/17/17 02/03/19 Pantoprazole [Protonix] 40 mg PO DAILY 12/17/17 02/03/19 Umeclidinium [place] [Incruse 1 puff INHALATION RT-DAILY 12/17/17 02/03/19 Ellipta] Budesonide [Pulmicort Flexhaler] 2 puff INHALATION RT-BID 01/03/18 02/03/19 Ergocalciferol [Vitamin D2 50,000 unit PO MOWEFR 02/03/19 02/03/19 (DRISDOL)] Furosemide [Lasix] 40 mg PO DAILY 02/03/19 02/03/19 Polyethylene Glycol 3350 [Miralax] 17 gm PO DAILY 02/03/19 02/03/19 Topiramate [Topamax] 25 mg PO BID 02/03/19 02/03/19 Previous Rx's Medication Instructions Recorded Lisinopril [Zestril] 5 mg PO DAILY #30 tab 01/05/18 Montelukast [Singulair] 10 mg PO HS 30 Days #30 tab 02/07/19 Rivaroxaban [Xarelto] 15 mg PO DAILY 30 Days #30 tab 02/07/19 Sulfamethox-Tmp 800-160Mg [Bactrim 1 tab PO Q12HR #28 tab 02/07/19 DS 800-160 mg] predniSONE 10 mg PO DIRECTED #30 tab 02/07/19 Allergies Allergy/AdvReac Type Severity Reaction Status Date / Time warfarin [From Coumadin] AdvReac MAKES Verified 02/15/19 09:41 BLOOD TOO THIN Review of Systems ROS Statement: Those systems with pertinent positive or pertinent negative responses have been documented in the HPI. ROS Other: All systems not noted in ROS Statement are negative. Past Medical History Past Medical History: Atrial Fibrillation, Atrial Flutter, Cancer, Chest Pain / Angina, Heart Failure, COPD, Hyperlipidemia, Hypertension, Myocardial Infarction ([place]), Pneumonia, Pulmonary Embolus ([place]), Syncope, Thyroid Disorder Additional Past Medical History / Comment(s): Nonischemic cardiomyopathy with an ejection fraction of 30-35%, Graves disease, tremors, pulmonary embolism 04/22/2016, squamous cell skin cancer with removal, severe fall down flight of steps in 2016-was in ICU w/fx. ribs,pneumonthorax/hemothorax required chest tubes,past resp failure requiring vent/trach. chronic alcoholism, recent admission for SOB, see Dr Martins [facility] & P Last Myocardial Infarction Date:: October 2016 History of Any Multi-Drug Resistant Organisms: MRSA Date of last positivie culture/infection: 05/24/17 MDRO Source:: bronch/sputum Past Surgical History: Adenoidectomy, Cholecystectomy, Tonsillectomy Additional Past Surgical History / Comment(s): 12/23/17 cardiac ablation for a flutter, RT HAND SX (TENDON REPAIR).RT THIGH SKIN LESION EXCISION(SQUAMOUS CELL CARCINOMA), functional endoscopic sinus surgery/septoplasty,chest tube/ trach & feeding tube 2016 after a fall, bronchoscopy. Past Anesthesia/Blood Transfusion Reactions: No Reported Reaction Past Psychological History: Anxiety Smoking Status: Current every day smoker Past Alcohol Use History: Heavy Past Drug Use History: None Reported - Past Family History Mother Family Medical History: Cancer, Congestive Heart Failure (CHF), Coronary Artery Disease (CAD), CVA/TIA Additional Family Medical History / Comment(s): Mother had throat cancer and of this at the age of 68yrs. Father Additional Family Medical History / Comment(s): IN [place] WHEN PT WAS 2 YEARS OLD. General Exam - General Exam Comments Initial Comments: General: The patient is awake and alert, in no distress, and does not appear acutely ill. Eye: Pupils are equal, round and reactive to light, extra-ocular movements are intact. No nystagmus. There is normal conjunctiva bilaterally. No signs of icterus. Cardiovascular: There is a regular rate and rhythm. No murmur, rub or gallop is appreciated. Respiratory: Lungs are clear to auscultation, respirations are non-labored, breath sounds are equal. No wheezes, stridor, rales, or rhonchi. Gastrointestinal: Soft, non-distended, non-tender abdomen without masses or organomegaly noted. There is no rebound or guarding present. No CVA tenderness. Bowel sounds are unremarkable. His digital exam revealed vertical lie. No scrotal color changes. No blue dot sign. Patient has no tenderness to patient of the epididymis. There is no specific intestinal or pain. Patient has pain in the right groin region. Strong femorals. Strong dorsalis pedis pulses. No evidence of masses. Mild lymphadenopathy appreciated. Patient states he had previous lymph node removal in this area. Patient has normal bowel sounds. Upon hernia examination there is no evidence of indirect or direct hernia. Patient has no penile lesions. Circumcised. Cremasteric reflex intact. Musculoskeletal: Normal ROM, no tenderness. Strength 5/5. Sensation intact. Pulses equal bilaterally 2+. Neurological: A&O x 3. CN II-XII intact, There are no obvious motor or sensory deficits. Coordination appears grossly intact. Speech is normal. Skin: Skin is warm and dry and no rashes or lesions are noted. Psychiatric: Cooperative, appropriate mood & affect, normal judgment. Limitations: no limitations Course Vital Signs 02/15/19 02/15/19 09:41 12:19 Temperature 98.0 F 98.2 F Pulse Rate 68 70 Respiratory 18 15 Rate Blood Pressure 95/64 119/78 O2 Sat by Pulse 100 98 Oximetry Medical Decision Making - Medical Decision Making Well-appearing 53-year-old male presenting for chief complaint of persistent right testicular pain. Patient is no evidence of torsion on physical examination. No evidence of acute distress. Nose and skin swelling. Ultrasound revealed no evidence of going masses. There is noted right-sided groin lymphadenopathy. At this time feel patient stay for discharge with primary care follow-up. Patient is agreeable this care plan. I discussed the case metallic provider Dr. Shrestha. Patient was discharged appearing well with instruction to continue antibiotics and f/u with urology. - Lab Data Lab Results 02/15/19 Range/Units 10:50 Urine Color Colorless Urine Appearance Clear (Clear) Urine pH 5.0 (5.0-8.0) Ur Specific [place] 1.005 (1.001-1.035) Urine Protein Negative (Negative) Urine Glucose (UA) Trace H (Negative) Urine Ketones Negative (Negative) Urine Blood Negative (Negative) Urine Nitrite Negative (Negative) Urine Bilirubin Negative (Negative) Urine Urobilinogen <2.0 (<2.0) mg/dL Ur Leukocyte Esterase Negative (Negative) Disposition Clinical Impression: Testicular pain, right Disposition: HOME SELF-CARE Condition: Good Instructions (If sedation given, give patient instructions): Groin Pain (ED), Scrotal Pain (ED) Additional Instructions: Please use medication as discussed. Please follow-up with urology as discussed. Please return to emergency room if the symptoms increase or worsen or for any other concerns. Is patient prescribed a controlled substance at d/c from ED?: No Referrals: Mónica Acosta MD [Primary Care Provider] - 1-2 days Time of Disposition: 12:05
--- NOTE | 2019-02-15 11:53 | US ---
EXAMINATION TYPE: US scrotum with doppler. Grayscale and color Doppler Duplex imaging performed of t david scrotum. DATE OF EXAM: 02/15/2019 COMPARISON: US CLINICAL HISTORY: pain. Right groin pain and right scrotal pain; EC PA stated patient has history of cancer. EXAM MEASUREMENTS: TESTICLES: Right Testicle: 3.3 x 2.5 x 1.6 cm Left Testicle: 2.2 x 2.2 x 1.8 cm EPIDIDYMIS HEAD: Right Epididymis: 1.4 x 2.4 x 1.0 cm Left Epididymis: 2.1 x 3.0 x 1.6 cm Doppler performed to assess for testicular vascularity; good bilateral color flow and waveforms are s een. There is no evidence of testicular torsion. Presence of hydroceles: no Presence of varicoceles: dilated vein at 3.4 x 5.0mm is noted in upper right epididymis, which sugge st varicocele. At patient's area of pain at right groin radiating up into pelvis: US images show 2 lymph nodes seen in this area with larger inferior node = 1.6 x 0.8 x 0.5cm. Inferior node imaging was at patient's gr eatest area of verbalized pain. No right inguinal hernia is noted. Multiple benign-appearing epididym al cysts/possible spermatoceles within the bilateral epididymal heads. IMPRESSION: 1. In the patient's area of severe right groin pain there are only 2 normal appearing nonenlarged lym ph nodes. No right inguinal hernia is seen sonographically. 2. No sonographic evidence of testicular torsion at the time of the examination.
[2019-02-15 12:20] VITALS: BP 119/78; PULSE 70; RESP 15; TEMP 98.2
== END 2019-02-15 12:12 | disposition home or self-care (01) ==
LOC: EC 09:26
DX: N50.811 Right testicular pain (principal); I48.91 Unspecified atrial fibrillation; I48.92 Unspecified atrial flutter; I11.0 Hypertensive heart disease with heart failure; I50.9 Heart failure, unspecified; E78.5 Hyperlipidemia, unspecified; J44.9 Chronic obstructive pulmonary disease, unspecified; I25.2 Old myocardial infarction; F41.9 Anxiety disorder, unspecified; F17.200 Nicotine dependence, unspecified, uncomplicated; Z79.899 Other long term (current) drug therapy; Z88.8 Allergy status to other drugs, medicaments and biological substances; Z86.711 Personal history of pulmonary embolism
CPT/HCPCS: 76870; 81003; 93975; 99284

== ENCOUNTER 2019-06-20 04:39 | Inpatient (IN) | payer OTHER ==
[2019-06-20] MEDS ORDERED: IPRATROPIUM-ALBUTEROL 3 ML NEB INHALATION STA (05:02)
[2019-06-20] MEDS ORDERED: IBUPROFEN 600 MG TAB PO STA (05:41)
[2019-06-20] MEDS ORDERED: HYDROcodone/APAP 7.5-325MG 1 EACH TAB PO ONE (05:41)
--- NOTE | 2019-06-20 05:47 | ED ---
SOB HPI - General Chief Complaint: Shortness of Breath Stated Complaint: URI Time Seen by Provider: 06/20/19 05:06 Source: patient, EMS Mode of arrival: EMS - History of Present Illness Initial Comments: This patient is a 54-year-old man who presents with the concern that he may have developed pneumonia. Patient states he has had a couple of weeks of cough but this has gotten progressively worse over the past few days. He also now is feeling short of breath. MD Complaint: shortness of breath, cough -: days(s) Improves With: nothing Worsens With: nothing Known History Of: COPD Associated Symptoms: cough, sputum production Treatments Prior to Arrival: none - Related Data Home Oxygen Therapy: No Home Medications Medication Instructions Recorded Confirmed Amiodarone HCl [Pacerone] 200 mg PO DAILY 07/23/17 02/03/19 PARoxetine HCL [Paxil] 40 mg PO DAILY 07/23/17 02/03/19 QUEtiapine [SEROquel] 100 mg PO HS 07/23/17 02/03/19 Thiamine [Vitamin B-1] 100 mg PO BID 07/23/17 02/03/19 Albuterol Inhaler [Ventolin Hfa 2 puff INHALATION RT-Q6H PRN 12/17/17 02/03/19 Inhaler] Albuterol Nebulized [Ventolin 2.5 mg INHALATION RT-TID 12/17/17 02/03/19 Nebulized] Atorvastatin [Lipitor] 10 mg PO HS 12/17/17 02/03/19 Metoprolol Tartrate [Lopressor] 50 mg PO BID 12/17/17 02/03/19 Pantoprazole [Protonix] 40 mg PO DAILY 12/17/17 02/03/19 Umeclidinium [place] [Incruse 1 puff INHALATION RT-DAILY 12/17/17 02/03/19 Ellipta] Budesonide [Pulmicort Flexhaler] 2 puff INHALATION RT-BID 01/03/18 02/03/19 Ergocalciferol [Vitamin D2 50,000 unit PO MOWEFR 02/03/19 02/03/19 (DRISDOL)] Furosemide [Lasix] 40 mg PO DAILY 02/03/19 02/03/19 Polyethylene Glycol 3350 [Miralax] 17 gm PO DAILY 02/03/19 02/03/19 Topiramate [Topamax] 25 mg PO BID 02/03/19 02/03/19 Previous Rx's Medication Instructions Recorded Lisinopril [Zestril] 5 mg PO DAILY #30 tab 01/05/18 Montelukast [Singulair] 10 mg PO HS 30 Days #30 tab 02/07/19 Rivaroxaban [Xarelto] 15 mg PO DAILY 30 Days #30 tab 02/07/19 Sulfamethox-Tmp 800-160Mg [Bactrim 1 tab PO Q12HR #28 tab 02/07/19 DS 800-160 mg] predniSONE 10 mg PO DIRECTED #30 tab 02/07/19 Allergies Allergy/AdvReac Type Severity Reaction Status Date / Time warfarin [From Coumadin] AdvReac MAKES Verified 06/20/19 04:59 BLOOD TOO THIN Review of Systems ROS Statement: Those systems with pertinent positive or pertinent negative responses have been documented in the HPI. ROS Other: All systems not noted in ROS Statement are negative. Constitutional: Denies: fever, chills ENT: Reports: congestion Respiratory: Reports: cough, dyspnea, wheezes. Denies: hemoptysis Cardiovascular: Denies: chest pain, palpitations, orthopnea, syncope Gastrointestinal: Denies: abdominal pain, nausea, vomiting Genitourinary: Denies: dysuria, hematuria Musculoskeletal: Denies: back pain Skin: Denies: rash Neurological: Reports: headache. Denies: weakness, numbness Past Medical History Past Medical History: Atrial Fibrillation, Atrial Flutter, Cancer, Chest Pain / Angina, Heart Failure, COPD, Hyperlipidemia, Hypertension, Myocardial Infarction ([place]), Pneumonia, Pulmonary Embolus ([place]), Syncope, Thyroid Disorder Additional Past Medical History / Comment(s): Nonischemic cardiomyopathy with an ejection fraction of 30-35%, Graves disease, tremors, pulmonary embolism 04/22/2016, squamous cell skin cancer with removal, severe fall down flight of steps in 2016-was in ICU w/fx. ribs,pneumonthorax/hemothorax required chest tubes,past resp failure requiring vent/trach. chronic alcoholism, recent admission for SOB, see Dr Martins H & P Last Myocardial Infarction Date:: October 2016 History of Any Multi-Drug Resistant Organisms: MRSA Date of last positivie culture/infection: 05/24/17 MDRO Source:: bronch/sputum Past Surgical History: Adenoidectomy, Cholecystectomy, Tonsillectomy Additional Past Surgical History / Comment(s): 12/23/17 cardiac ablation for a flutter, RT HAND SX (TENDON REPAIR).RT THIGH SKIN LESION EXCISION(SQUAMOUS CELL CARCINOMA), functional endoscopic sinus surgery/septoplasty,chest tube/ trach & feeding tube 2016 after a fall, bronchoscopy. Past Anesthesia/Blood Transfusion Reactions: No Reported Reaction Past Psychological History: Anxiety Smoking Status: Current some day smoker Past Alcohol Use History: Heavy Past Drug Use History: None Reported - Past Family History Mother Family Medical History: Cancer, Congestive Heart Failure (CHF), Coronary Artery Disease (CAD), CVA/TIA Additional Family Medical History / Comment(s): Mother had throat cancer and of this at the age of 68yrs. Father Additional Family Medical History / Comment(s): IN [place] WHEN PT WAS 1 YEARS OLD. General Exam General appearance: alert, in no apparent distress Head exam: Present: atraumatic, normocephalic Eye exam: Present: normal appearance. Absent: scleral icterus, conjunctival injection ENT exam: Present: mucous membranes dry Neck exam: Present: normal inspection. Absent: tenderness Respiratory exam: Present: wheezes, rhonchi. Absent: respiratory distress, rales, stridor, accessory muscle use Cardiovascular Exam: Present: regular rate, normal rhythm, normal heart sounds. Absent: systolic murmur, diastolic murmur, rubs, gallop GI/Abdominal exam: Present: soft. Absent: distended, tenderness, guarding, rebound, mass Extremities exam: Present: normal inspection, normal capillary refill. Absent: pedal edema, calf tenderness Back exam: Present: normal inspection. Absent: CVA tenderness (R), CVA tenderness (L) Neurological exam: Present: alert Skin exam: Present: warm, dry, intact, normal color. Absent: rash Course Vital Signs 06/20/19 06/20/19 06/20/19 04:53 05:05 05:14 Temperature 99 F Pulse Rate 81 82 84 Respiratory 19 Rate Blood Pressure 125/74 O2 Sat by Pulse 93 L Oximetry 06/20/19 06/20/19 07:19 07:25 Temperature Pulse Rate 90 88 Respiratory Rate Blood Pressure O2 Sat by Pulse Oximetry Medical Decision Making - Medical Decision Making Patient is 54-year-old man with history of COPD, who presents with cough and wheeze. Patient having decreased pulse ox on arrival. Patient not having much improvement following nebulized treatment here. - Lab Data Result diagrams: 06/20/19 04:49 06/20/19 04:49 Lab Results 06/20/19 06/20/19 06/20/19 Range/Units 04:49 04:49 04:49 WBC 8.2 (3.8-10.6) k/uL RBC 4.14 L (4.30-5.90) m/uL Hgb 13.0 (13.0-17.5) gm/dL Hct 39.7 (39.0-53.0) % MCV 95.8 (80.0-100.0) fL MCH 31.5 (25.0-35.0) pg MCHC 32.9 (31.0-37.0) g/dL RDW 14.3 (11.5-15.5) % Plt Count 139 L (150-450) k/uL Neutrophils % 90 % Lymphocytes % 4 % Monocytes % 4 % Eosinophils % 0 % Basophils % 0 % Neutrophils # 7.4 (1.3-7.7) k/uL Lymphocytes # 0.4 L (1.0-4.8) k/uL Monocytes # 0.4 (0-1.0) k/uL Eosinophils # 0.0 (0-0.7) k/uL Basophils # 0.0 (0-0.2) k/uL PT 12.9 H (9.0-12.0) sec INR 1.2 H (<1.2) APTT 35.8 H (22.0-30.0) sec D-Dimer 0.20 (<0.60) mg/L FEU Sodium 138 (137-145) mmol/L Potassium 4.3 (3.5-5.1) mmol/L Chloride 103 (98-107) mmol/L Carbon Dioxide 16 L (22-30) mmol/L Anion Gap 19 mmol/L BUN 35 H (9-20) mg/dL Creatinine 1.77 H (0.66-1.25) mg/dL Est GFR (CKD-EPI)AfAm 49 (>60 ml/min/1.73 sqM) Est GFR (CKD-EPI)NonAf 42 (>60 ml/min/1.73 sqM) Glucose 148 H (74-99) mg/dL Calcium 9.1 (8.4-10.2) mg/dL Total Bilirubin 0.7 (0.2-1.3) mg/dL AST 45 (17-59) U/L ALT 45 (4-49) U/L Alkaline Phosphatase 98 (38-126) U/L Troponin I (0.000-0.034) ng/mL NT-Pro-B Natriuret Pep pg/mL Total Protein 8.1 (6.3-8.2) g/dL Albumin 4.7 (3.5-5.0) g/dL 06/20/19 06/20/19 Range/Units 04:49 04:49 WBC (3.8-10.6) k/uL RBC (4.30-5.90) m/uL Hgb (13.0-17.5) gm/dL Hct (39.0-53.0) % MCV (80.0-100.0) fL MCH (25.0-35.0) pg MCHC (31.0-37.0) g/dL RDW (11.5-15.5) % Plt Count (150-450) k/uL Neutrophils % % Lymphocytes % % Monocytes % % Eosinophils % % Basophils % % Neutrophils # (1.3-7.7) k/uL Lymphocytes # (1.0-4.8) k/uL Monocytes # (0-1.0) k/uL Eosinophils # (0-0.7) k/uL Basophils # (0-0.2) k/uL PT (9.0-12.0) sec INR (<1.2) APTT (22.0-30.0) sec D-Dimer (<0.60) mg/L FEU Sodium (137-145) mmol/L Potassium (3.5-5.1) mmol/L Chloride (98-107) mmol/L Carbon Dioxide (22-30) mmol/L Anion Gap mmol/L BUN (9-20) mg/dL Creatinine (0.66-1.25) mg/dL Est GFR (CKD-EPI)AfAm (>60 ml/min/1.73 sqM) Est GFR (CKD-EPI)NonAf (>60 ml/min/1.73 sqM) Glucose (74-99) mg/dL Calcium (8.4-10.2) mg/dL Total Bilirubin (0.2-1.3) mg/dL AST (17-59) U/L ALT (4-49) U/L Alkaline Phosphatase (38-126) U/L Troponin I 0.013 (0.000-0.034) ng/mL NT-Pro-B Natriuret Pep 670 pg/mL Total Protein (6.3-8.2) g/dL Albumin (3.5-5.0) g/dL - EKG Data -: EKG Interpreted by Me EKG shows normal: sinus rhythm, axis (Normal), intervals (Normal), QRS complexes (Normal), ST-T waves (Normal) Rate: normal (Rate 82 bpm) Disposition Clinical Impression: COPD (chronic obstructive pulmonary disease), Acute kidney injury Disposition: ADMITTED IP TO THIS HOSP Condition: Fair Is patient prescribed a controlled substance at d/c from ED?: No Referrals: Mónica Acosta MD [Primary Care Provider] - 1-2 days
[2019-06-20 05:58] LABS: Basophils % (A) 0 %; Eosinophils % (A) 0 %; HCT 39.7 % (39.0-53.0); Lymphocytes # (A) 0.4 k/uL (1.0-4.8); Lymphocytes % (A) 4 %; MCH 31.5 pg (25.0-35.0); MCHC 32.9 g/dL (31.0-37.0); MCV 95.8 fL (80.0-100.0); Mean Platelet Volume 7.1; Monocytes # (A) 0.4 k/uL (0-1.0); Monocytes % (A) 4 %; Neutrophils # (A) 7.4 k/uL (1.3-7.7); Neutrophils % (A) 90 %; Platelet Count 139 k/uL (150-450); RBC 4.14 m/uL (4.30-5.90); RDW 14.3 % (11.5-15.5); WBC 8.2 k/uL (3.8-10.6)
[2019-06-20 06:08] LABS: Albumin 4.7 g/dL (3.5-5.0); Calcium 9.1 mg/dL (8.4-10.2); Potassium 4.3 mmol/L (3.5-5.1); Total Bilirubin 0.7 mg/dL (0.2-1.3); Total Protein 8.1 g/dL (6.3-8.2)
[2019-06-20 06:11] LABS: INR 1.2 (<1.2)
[2019-06-20 06:12] LABS: D-Dimer 0.2 mg/L FEU (<0.60); Partial Thromboplastin Time 35.8 sec (22.0-30.0); Prothrombin Time 12.9 sec (9.0-12.0)
--- NOTE | 2019-06-20 06:30 | XR ---
EXAM: XR Chest, 2 Views CLINICAL HISTORY: difficulty breathing TECHNIQUE: Frontal and lateral views of the chest. COMPARISON: January 14, 2019. FINDINGS: Lungs: Unremarkable. No consolidation. Pleural space: Unremarkable. No pleural effusions. No pneumothorax. Heart: Unremarkable. No cardiomegaly. Mediastinum: Unremarkable. Bones/joints: Old right rib fractures. Degenerative changes in thoracic spine. IMPRESSION: No acute cardiopulmonary process.
[2019-06-20] MEDS ORDERED: ALBUTEROL NEBULIZED 2.5 MG/3 ML INHALATION STA (06:48)
[2019-06-20] MEDS ORDERED: SODIUM CHLORIDE 0.9% 500 ML 500 ML IV STA (07:31)
[2019-06-20] MEDS: SODIUM CHLORIDE 0.9% 1,000 ML IV SCH ×3 (08:53→22:09)
[2019-06-20] MEDS: IPRATROPIUM-ALBUTEROL 3 ML NEB INHALATION SCH ×5 (08:59→21:02)
[2019-06-20] MEDS ORDERED: predniSONE 20 MG TAB PO SCH (09:00)
[2019-06-20] MEDS: HYDROcodone/APAP 7.5-325MG 1 EACH TAB PO PRN ×2 (14:53→18:25)
[2019-06-20] MEDS ORDERED: ALPRAZolam 0.25 MG TAB PO PRN (15:00)
[2019-06-20] MEDS ORDERED: ACETAMINOPHEN TAB 500 MG TAB PO PRN (15:00)
[2019-06-20] MEDS ORDERED: PANTOPRAZOLE 40 MG TABLET PO SCH (15:15)
[2019-06-20] MEDS: NICOTINE 14MG/24HR PATCH TRANSDERM SCH (16:10)
[2019-06-20] MEDS: PARoxetine 20 MG TAB PO SCH (16:10)
[2019-06-20] MEDS: LISINOPRIL 5 MG TAB PO SCH (16:10)
[2019-06-20] MEDS: FUROSEMIDE 10 MG/ML 4 ML VIAL IV SCH (16:10)
[2019-06-20] MEDS: methylPREDNISolone SOD SUCCI 125 MG/2 ML VIAL IV SCH ×2 (16:49→23:17)
[2019-06-20 17:07] LABS: Glucose,Whole Blood 271 mg/dL (75-99)
--- NOTE | 2019-06-20 17:12 | P.CNPUL ---
History of Present Illness Consult date: 06/20/19 Reason for consult: dyspnea, cough Chief complaint: Cough shortness of breath progressive for 2 weeks History of present illness: This is a 54-year-old male who was seen evaluated examined in the emergency department this morning he has been not feeling well for 2 weeks of progressive cough shortness of breath associated with purulent sputum production came into emergency department for further evaluation chest x-ray has been negative for any acute process, overall a poor historian he has a long-standing history of cardiovascular problems including chronic atrial fibrillation and flutter history of the chronic systolic heart failure baseline ejection fraction of 30% it is thought to be nonischemic cardiomyopathy, patient has a history of Graves' disease pulmonary embolism thyroid disorder history of falls with the pneumothorax and hemothorax and multiple refracture hospitalized back in 2017 on arrival he was noted to have a low-grade fever now resolved, he is being treated with broad-spectrum antibiotics, bronchodilators as well as IV steroids Review of Systems All systems: negative Past Medical History Past Medical History: Atrial Fibrillation, Atrial Flutter, Cancer, Chest Pain / Angina, Heart Failure, COPD, Hyperlipidemia, Hypertension, Myocardial Infarction ([place]), Pneumonia, Pulmonary Embolus ([place]), Syncope, Thyroid Disorder Additional Past Medical History / Comment(s): Nonischemic cardiomyopathy with an ejection fraction of 30-35%, Graves disease, tremors, pulmonary embolism 04/22/2016, squamous cell skin cancer with removal, severe fall down flight of steps in 2016-was in ICU w/fx. ribs,pneumonthorax/hemothorax required chest tubes,past resp failure requiring vent/trach. chronic alcoholism, recent admission for SOB, see Dr Martins [facility] Last Myocardial Infarction Date:: October 2016 History of Any Multi-Drug Resistant Organisms: MRSA Date of last positivie culture/infection: 05/24/17 MDRO Source:: bronch/sputum Past Surgical History: Adenoidectomy, Cholecystectomy, Tonsillectomy Additional Past Surgical History / Comment(s): 12/23/17 cardiac ablation for a flutter, RT HAND SX (TENDON REPAIR).RT THIGH SKIN LESION EXCISION(SQUAMOUS CELL CARCINOMA), functional endoscopic sinus surgery/septoplasty,chest tube/ trach & feeding tube 2016 after a fall, bronchoscopy. Past Anesthesia/Blood Transfusion Reactions: No Reported Reaction Past Psychological History: Anxiety Smoking Status: Current some day smoker Past Alcohol Use History: Heavy Past Drug Use History: None Reported - Past Family History Mother Family Medical History: Cancer, Congestive Heart Failure (CHF), Coronary Artery Disease (CAD), CVA/TIA Additional Family Medical History / Comment(s): Mother had throat cancer and of this at the age of 68yrs. Father Additional Family Medical History / Comment(s): IN [place] WHEN PT WAS 1 YEARS OLD. Medications and Allergies Home Medications Medication Instructions Recorded Confirmed Type Amiodarone HCl [Pacerone] 200 mg PO DAILY 07/23/17 06/20/19 History PARoxetine HCL [Paxil] 40 mg PO DAILY 07/23/17 06/20/19 History QUEtiapine [SEROquel] 100 mg PO HS 07/23/17 06/20/19 History Albuterol Inhaler [Ventolin Hfa 2 puff INHALATION RT-Q6H PRN 12/17/17 06/20/19 History Inhaler] Albuterol Nebulized [Ventolin 2.5 mg INHALATION RT-TID 12/17/17 06/20/19 History Nebulized] Atorvastatin [Lipitor] 10 mg PO HS 12/17/17 06/20/19 History Metoprolol Tartrate [Lopressor] 50 mg PO BID 12/17/17 06/20/19 History Pantoprazole [Protonix] 40 mg PO DAILY 12/17/17 06/20/19 History Umeclidinium [place] [Incruse 1 puff INHALATION RT-DAILY 12/17/17 06/20/19 History Ellipta] Budesonide [Pulmicort Flexhaler] 2 puff INHALATION RT-BID 01/03/18 06/20/19 History Lisinopril [Zestril] 5 mg PO DAILY #30 tab 01/05/18 06/20/19 Rx Ergocalciferol [Vitamin D2 50,000 unit PO MOWEFR 02/03/19 06/20/19 History (DRISDOL)] Furosemide [Lasix] 40 mg PO DAILY 02/03/19 06/20/19 History Polyethylene Glycol 3350 [Miralax] 17 gm PO DAILY 02/03/19 06/20/19 History Montelukast [Singulair] 10 mg PO HS 30 Days #30 tab 02/07/19 06/20/19 Rx Rivaroxaban [Xarelto] 20 mg PO DAILY 06/20/19 06/20/19 History Allergies Allergy/AdvReac Type Severity Reaction Status Date / Time warfarin [From Coumadin] AdvReac MAKES Verified 06/20/19 09:29 BLOOD TOO THIN Physical Exam Vitals: Vital Signs Temp Pulse Pulse Resp BP BP Pulse Ox 06/20/19 16:12 99 06/20/19 16:07 98 06/20/19 16:06 101 H 06/20/19 15:00 97.9 F 114 H 16 160/93 97 06/20/19 14:54 97.9 F 99 24 128/91 99 06/20/19 12:45 90 06/20/19 12:37 89 06/20/19 12:18 87 18 126/91 98 06/20/19 09:07 80 06/20/19 09:00 76 06/20/19 08:54 97.6 F 76 18 114/73 06/20/19 07:25 88 06/20/19 07:19 90 06/20/19 05:14 84 06/20/19 05:05 82 06/20/19 04:53 99 F 81 19 125/74 93 L Intake and Output 06/20/19 06/20/19 06/20/19 06:59 14:59 22:59 Output Total 400 Balance -400 Output: Urine 400 Other: Weight 81.647 kg - Constitutional General appearance: average body habitus, cooperative, disheveled, mild distress - EENT Eyes: anicteric sclerae, EOMI, PERRLA, poor dentition, normal appearance Ears: bilateral: normal - Neck Neck: normal ROM Carotids: bilateral: upstroke normal Thyroid: bilateral: normal size - Respiratory Respiratory: bilateral: diminished, wheezing, negative: CTA, dullness, rales, rhonchi - Cardiovascular Rhythm: regular Heart sounds: normal: S1, S2 - Gastrointestinal General gastrointestinal: normal bowel sounds, soft - Integumentary Integumentary: normal turgor - Neurologic Neurologic: CNII-XII intact - Musculoskeletal Musculoskeletal: gait normal, generalized weakness, strength equal bilaterally - Psychiatric Psychiatric: A&O x's 3, appropriate affect, intact judgment & insight Results - Laboratory Findings CBC and BMP: 06/20/19 04:49 06/20/19 04:49 PT/INR, D-dimer PT 12.9 sec (9.0-12.0) H 06/20/19 04:49 INR 1.2 (<1.2) H 06/20/19 04:49 D-Dimer 0.20 mg/L FEU (<0.60) 06/20/19 04:49 Abnormal lab findings: Abnormal Labs 06/20/19 06/20/19 06/20/19 04:49 04:49 04:49 RBC 4.14 L Plt Count 139 L Lymphocytes # 0.4 L PT 12.9 H INR 1.2 H APTT 35.8 H Carbon Dioxide 16 L BUN 35 H Creatinine 1.77 H Glucose 148 H - Diagnostic Findings Chest x-ray: report reviewed, image reviewed Assessment and Plan Assessment: Acute COPD exacerbation Purulent tracheobronchitis Cardiomyopathy nonischemic baseline ejection fraction 35%, chronic systolic hear t failure Chronic atrial flutter fibrillation History of fall with multiple rib fracture pneumothorax History of extensive smoking and nicotine use Plan: Overall plan includes resume home medications Continue anticoagulation Breathing treatment IV steroids Broad-spectrum antibiotics Monitor clinical course closely Smoking cessation advice Further recommendations pending plan of care as per clinical response of the patient Time with Patient: Greater than 30
[2019-06-20 17:14] LABS: ABG Base Excess -11.9 mmol/L; ABG HCO3 16 mmol/L (21-25); ABG Oxygen Saturation 94.7 % (94-97); ABG PCO2 38 mmHg (35-45); ABG PH 7.23 (7.35-7.45); ABG PO2 85 mmHg (83-108); ABG TCO2 17 mmol/L (19-24); Allen Test Performed? Yes
[2019-06-20] MEDS: ALBUTEROL NEBULIZED 2.5 MG/3 ML INHALATION PRN (17:22)
--- NOTE | 2019-06-20 18:03 | XR ---
EXAMINATION TYPE: XR chest 1V DATE OF EXAM: 06/20/2019 COMPARISON: Today HISTORY: Difficulty breathing. Short of breath. TECHNIQUE: Single view FINDINGS: There is no heart failure nor confluent pneumonic infiltrate. Costophrenic angles are clear . There are multiple old right-sided healed rib fractures. There are no hilar masses. IMPRESSION: No active cardiopulmonary disease. No change compared to exam earlier today.
[2019-06-20] MEDS: RIVAROXABAN 20 MG TAB PO SCH (18:24)
[2019-06-20] MEDS: AZITHROMYCIN 500 MG in SODIUM CHLORIDE 0.9% 250 ML IVPB SCH (18:24)
--- NOTE | 2019-06-20 18:57 | HP ---
HISTORY AND PHYSICAL DATE OF SERVICE: 06/20/2019 CHIEF COMPLAINT: Shortness of breath and cough. HISTORY OF PRESENT ILLNESS: This 54-year-old gentleman with the past medical history of multiple medical problems including atrial fibrillation/flutter, history of CHF, COPD, hypertension, myocardial infarction, history ejection fraction 35-40%, history of Graves disease, history of tremors, pulmonary embolism, history of squamous cell carcinoma, history of adenoidectomy, cholecystomy being followed by Dr. Mónica Acosta in the outpatient setting, is complaining of cough and shortness of breath for the past several days. Because of increasing difficulties and lack of improvement the patient came to [facility]. Pneumonia was suspected and patient admitted for further evaluation and treatment. There is no history of any fevers or rigors. No history of headache, loss of consciousness, seizures. PAST MEDICAL HISTORY: History of atrial flutter/fibrillation, history of CHF, COPD, hypertension, hyperlipidemia, history of hypertension, myocardial infarction, history of pulmonary embolism, history of thyroid problems, nonischemic cardiomyopathy. MEDICATIONS ARE: 1. Ellipta 1 puff daily. 2. Xarelto 20 mg daily. 3. Seroquel 200 mg q.h.s. 4. MiraLAX 17 g daily. 5. Protonix 40 mg. 6. Paxil 40 mg p.o. daily. 7. Singulair 10 mg at bedtime. 8. Lopressor 50 mg p.o. b.i.d. 9. Zestril 5 mg p.o. daily. 10.Lasix 40 mg p.o. daily. 11.Vitamin D2 50,000 p.o. Wednesday, Wednesday, Wednesday. 12.Pulmicort 2 puffs b.i.d. 13.Lipitor 10 mg p.o. q.h.s. 14.Pacerone 200 mg p.o. daily. 15.Ventolin 2.5 t.i.d. 16.Ventolin HFA 2 puffs q.6h p.r.n. ALLERGIES: WARFARIN. FAMILY HISTORY: History of CHF, CAD, CVA, TIA. SOCIAL HISTORY: History of smoking. History of alcohol intake. REVIEW OF SYSTEMS: ENT: No history of diminished hearing or vision. CARDIOVASCULAR: As mentioned earlier. RESPIRATORY: As mentioned earlier. GI: No nausea, vomiting, or diarrhea. : No dysuria. NERVOUS: As mentioned earlier. ALLERGY/IMMUNOLOGY: No asthma or hayfever. MUSCULOSKELETAL: As mentioned earlier. HEMATOLOGY/ONCOLOGY: Negative. ENDOCRINE: No history of diabetes or hypothyroidism. CONSTITUTIONAL: As mentioned earlier. PSYCHIATRY As mentioned earlier. PHYSICAL EXAMINATION: Alert and oriented x3. Pulse 76, blood pressure 114/70, respiration 18, temperature 97.6, pulse ox 93% on 2 L. HEENT: Conjunctivae normal. Oral mucosa moist. NECK: No jugular venous distention. No lymph node enlargement. CARDIOVASCULAR: S1, S2. RESPIRATORY: efforts markedly increased. Bilateral scattered rhonchi and crackles. ABDOMEN: Soft, nontender. No mass palpable. LEGS: No edema, no swelling. NERVOUS SYSTEM: Higher functions mentioned earlier. Moves all four limbs. No focal motor or sensory deficit. LYMPHATICS: No lymph node in neck or axilla. SKIN: No rash. JOINTS: No active deforming arthropathy. LABS: WBC 8.2, hemoglobin 13, INR is 1.2. Sodium 138, potassium 4.2, creatinine is 1.77. The baseline creatinine was elevated. ASSESSMENT: 1. Chronic obstructive pulmonary disease exacerbation with bilateral bronchopneumonia with severe acute respiratory distress with no evidence of any acute respiratory failure. 2. Increased creatinine with chronic kidney disease stage III. 3. Mild thrombocytopenia. 4. History of paroxysmal atrial flutter/fibrillation. 5. History of congestive heart failure, ejection fraction with chronic systolic dysfunction, ejection fraction 30-35%. 6. History of chronic obstructive pulmonary disease. 7. Hypertension. 8. Hyperlipidemia. 9. History of myocardial infarction. 10.History of pneumonia. 11.History of pulmonary embolism. 12.Syncope. 13.History of hypothyroidism. 14.History of Graves disease. 15.History of squamous cell skin cancer. 16.History of fall and pneumothorax and hemothorax. 17.History of MRSA. 18.History of adenoidectomy and cholecystectomy. 19.History of cardiac ablation for atrial flutter. 20.History of anxiety. 21.History of continued ongoing nicotine dependence. 22.FULL CODE. RECOMMENDATIONS AND DISCUSSION: In this 54-year-old gentleman who presented with multiple complex medical issues, we will monitor the patient closely, continue the current medication, optimize the bronchodilator and empiric antibiotics, resume the home medications, DVT prophylaxis, cut down the IV fluids. Pulmonary consultation with Dr. David. Otherwise, prognosis guarded because of multiple complex medical issues. Further recommendations to follow. MMODL / IJN: [id number] / PARTHA
[2019-06-20 20:09] LABS: Glucose,Whole Blood 248 mg/dL (75-99)
[2019-06-20] MEDS: METOPROLOL TARTRATE 50 MG TAB PO SCH (20:18)
[2019-06-20] MEDS: MONTELUKAST 10 MG TAB PO SCH (20:18)
[2019-06-20] MEDS: INSULIN ASPART (NovoLOG) 100 UNIT/ML VIAL SQ SCH (20:18)
[2019-06-20] MEDS: QUEtiapine 100 MG TAB PO SCH (20:18)
[2019-06-20] MEDS: ATORVASTATIN 10 MG TAB PO SCH (20:18)
[2019-06-20] MEDS ORDERED: LORazepam 2 MG/ML INJ IV PRN ×2 (20:29)
[2019-06-20] MEDS: FORMOTEROL FUMARATE 20 MCG/2 ML NEBU INHALATION SCH (21:05)
[2019-06-20] MEDS: BUDESONIDE 1 MG/2 ML NEBU INHALATION SCH (21:06)
[2019-06-20 21:37] LABS: Glucose,Whole Blood 212 mg/dL (75-99)
[2019-06-20 21:41] LABS: ABG Base Excess -8.9 mmol/L; ABG HCO3 18 mmol/L (21-25); ABG Oxygen Saturation 99.4 % (94-97); ABG PCO2 37 mmHg (35-45); ABG PH 7.29 (7.35-7.45); ABG PO2 164 mmHg (83-108); ABG TCO2 19 mmol/L (19-24); Allen Test Performed? Yes
[2019-06-20] MEDS ORDERED: SODIUM CHLORIDE 0.9% 500 ML 250 ML IV ONE (21:55)
[2019-06-20 21:58] LABS: Glucose,Whole Blood 198 mg/dL (75-99)
[2019-06-20] MEDS: SODIUM CHLORIDE 0.9% 250 ML IV SCH ×2 (22:17→23:15)
--- NOTE | 2019-06-20 22:18 | XR ---
EXAMINATION TYPE: XR chest 1V portable DATE OF EXAM: 06/20/2019 COMPARISON: 06/20/2019 HISTORY: Short of breath TECHNIQUE: FINDINGS: There is no heart failure nor confluent pneumonic infiltrate. Costophrenic angles are clear . There are multiple old right-sided healed rib fractures. There are chest leads. IMPRESSION: No active cardiopulmonary disease. No change.
[2019-06-20] MEDS ORDERED: NALOXONE 0.4 MG/ML 1 ML VIAL IV PRN (22:43)
[2019-06-20 23:24] LABS: Appearance,Urine Clear (Clear); Bacteria,Urine Occasional /hpf; Bilirubin,Urine Negative (Negative); Blood,Urine Moderate (Negative); Color,Urine Yellow; Glucose,Urine (UA) 2+ (Negative); Hyaline Casts,Urine 24 /lpf (0-2); Ketones,Urine Negative (Negative); Leukocyte Esterase,Urine Negative (Negative); Mucus,Urine Rare /hpf; Nitrite,Urine Negative (Negative); Protein,Urine Trace (Negative); RBC,Urine 5 /hpf (0-5); Specific Gravity,Urine 1.014 (1.001-1.035); Squamous Epithelial Cell,Urine 2 /hpf (0-4); Urobilinogen,Urine <2.0 mg/dL (<2.0); WBC,Urine 2 /hpf (0-5)
[2019-06-21 00:08] LABS: ABG Base Excess -7.4 mmol/L; ABG HCO3 18 mmol/L (21-25); ABG Oxygen Saturation 98.8 % (94-97); ABG PCO2 35 mmHg (35-45); ABG PH 7.34 (7.35-7.45); ABG PO2 141 mmHg (83-108); ABG TCO2 20 mmol/L (19-24); Allen Test Performed? Yes
[2019-06-21] MEDS: ALBUTEROL NEBULIZED 2.5 MG/3 ML INHALATION PRN (00:31)
[2019-06-21] MEDS ORDERED: SUCCINYLCHOLINE CHLORIDE VIAL 200 MG/10 ML VIAL IV ONE (01:17)
[2019-06-21] MEDS ORDERED: ROCURONIUM BROMIDE 10 MG/ML 10 ML VIAL IV ONE (01:17)
[2019-06-21] MEDS ORDERED: PROPOFOL 10 MG/ML 20 ML VIAL IV ONE (01:17)
[2019-06-21] MEDS: PROPOFOL 1,000 MG in EMPTY BAG 1 BAG IV SCH ×6 (01:30→18:12)
[2019-06-21 02:16] LABS: ABG Base Excess -6.7 mmol/L; ABG HCO3 20 mmol/L (21-25); ABG Oxygen Saturation 99.6 % (94-97); ABG PCO2 44 mmHg (35-45); ABG PH 7.27 (7.35-7.45); ABG PO2 282 mmHg (83-108); ABG TCO2 22 mmol/L (19-24)
[2019-06-21 02:19] LABS: Allen Test Performed? no
--- NOTE | 2019-06-21 02:19 | XR ---
EXAMINATION TYPE: XR chest 1V portable DATE OF EXAM: 06/21/2019 COMPARISON: Yesterday HISTORY: Tube placement. Respiratory failure TECHNIQUE: Single view FINDINGS: Endotracheal tube is 3.5 cm from the tank. There is nasogastric tube in the stomach. Ther e is no heart failure. There are multiple old right-sided healed rib fractures. Lungs are clear of co nsolidation. IMPRESSION: No pulmonary consolidation or heart failure. There is increased interstitial density in t he lower lobes compared to yesterday. Cardiac silhouette appears increased compared to yesterday prob ably due to projection.
[2019-06-21] MEDS ORDERED: CISATRACURIUM 2 MG/ML 5 ML VIAL IV ONE (02:54)
[2019-06-21] MEDS ORDERED: ACETAMINOPHEN IV (For NPO) 1,000 MG in EMPTY BAG 1 BAG IVPB PRN (03:00)
[2019-06-21] MEDS ORDERED: SODIUM CHLORIDE 0.9% 250 ML IV SCH (03:00)
[2019-06-21] MEDS: CISATRACURIUM 200 MG in SODIUM CHLORIDE 0.9% 180 ML IV SCH (03:31)
[2019-06-21] MEDS: IPRATROPIUM-ALBUTEROL 3 ML NEB INHALATION PRN (03:42)
[2019-06-21 04:01] LABS: HCT 34.5 % (39.0-53.0); HGB 11.4 gm/dL (13.0-17.5); MCHC 32.9 g/dL (31.0-37.0); MCV 97.3 fL (80.0-100.0); Mean Platelet Volume 7.3; Platelet Count 101 k/uL (150-450); RBC 3.55 m/uL (4.30-5.90); RDW 14.3 % (11.5-15.5); WBC 4.9 k/uL (3.8-10.6)
[2019-06-21] MEDS: NOREPINEPHRINE 4 MG in SODIUM CHLORIDE 0.9% 250 ML IV SCH ×2 (04:10→22:06)
[2019-06-21] MEDS: ARTIFICIAL TEARS-HYPROMELLOSE DROPS 15 ML BTL BOTH EYES SCH ×4 (04:25→15:08)
[2019-06-21 04:37] LABS: Calcium 7.6 mg/dL (8.4-10.2); Potassium 4.4 mmol/L (3.5-5.1)
[2019-06-21] MEDS: methylPREDNISolone SOD SUCCI 125 MG/2 ML VIAL IV SCH ×3 (05:11→17:09)
[2019-06-21 06:31] LABS: Band Neutrophils % 39 %; Lymphocytes # (M) 0.25 k/uL (1.0-4.8); Metamyelocytes # (M) 0.05 k/uL (0); Metamyelocytes % 1 %; Monocytes # (M) 0.15 k/uL (0-1.0); Neutrophils % (M) 53 %; Nucleated Red Blood Cells 0 /100 WBC (0-0); Total Cells Counted 200
[2019-06-21 06:32] LABS: Anisocytosis (M) Present
[2019-06-21 06:33] LABS: Polychromasia Present
[2019-06-21] MEDS: INSULIN ASPART (NovoLOG) 100 UNIT/ML VIAL SQ SCH ×4 (06:40→21:00)
[2019-06-21] MEDS: SODIUM CHLORIDE 0.9% 250 ML IV SCH (06:41)
[2019-06-21 06:49] LABS: Glucose,Whole Blood 211 mg/dL (75-99)
[2019-06-21] MEDS: IPRATROPIUM-ALBUTEROL 3 ML NEB INHALATION SCH ×4 (07:37→19:54)
[2019-06-21] MEDS: BUDESONIDE 1 MG/2 ML NEBU INHALATION SCH ×2 (07:37→20:19)
[2019-06-21] MEDS: FORMOTEROL FUMARATE 20 MCG/2 ML NEBU INHALATION SCH ×2 (07:37→20:19)
[2019-06-21] MEDS: SODIUM CHLORIDE 0.9% 1,000 ML IV SCH ×2 (08:56→17:13)
[2019-06-21] MEDS: METOPROLOL TARTRATE 50 MG TAB PO SCH ×2 (09:06→21:47)
[2019-06-21] MEDS: LISINOPRIL 5 MG TAB PO SCH (09:06)
[2019-06-21] MEDS: AMIODARONE 200 MG TAB PO SCH (09:33)
[2019-06-21] MEDS: FUROSEMIDE 10 MG/ML 4 ML VIAL IV SCH (09:33)
[2019-06-21] MEDS: PARoxetine 20 MG TAB PO SCH (09:33)
[2019-06-21] MEDS: NICOTINE 14MG/24HR PATCH TRANSDERM SCH (09:34)
[2019-06-21] MEDS: PANTOPRAZOLE 40 MG/10 ML VIAL IVP SCH (09:34)
[2019-06-21] MEDS: CHLORHEXIDINE GLUCONATE 15 ML CUP MUCOUS MEM SCH ×2 (09:36→21:47)
[2019-06-21] MEDS: POLYETHYLENE GLYCOL 3350 17 GM POWD.PACK PO SCH (09:37)
--- NOTE | 2019-06-21 10:31 | P.PN ---
Subjective Progress Note Date: 06/21/19 Principal diagnosis: Acute hypoxic and hypercapnic respiratory failure Acute COPD exacerbation Purulent tracheobronchitis Cardiomyopathy nonischemic baseline ejection fraction 35%, chronic systolic heart failure Chronic atrial flutter fibrillation History of fall with multiple rib fracture pneumothorax History of extensive smoking and nicotine use 06/21/2019, patient seen eval reexamined during the rounds events from earlier this morning noted patient developed respiratory distress and severe metabolic acidosis likely related to acute COPD exacerbation and severe sepsis from unknown source, patient was intubated due to severe agitation patient has been started on medical paralysis we'll start tapering it down now currently patient is 4 out of 4 will cut it down to half and gradually taper and DC it continue propofol for sedation, supplemental it with Ativan and morphine, chest x-ray from earlier this morning reviewed prominent interstitium has been noted, [place] jassi lactic acid noted to have improved, patient had been aggressively resuscitated with crystalloids, blood pressure is normal the levo fed is being titrated down currently he is on 2 mics, when setting includes assist control rate of 16 and tidal volume of 500 PEEP of 5 and FiO2 is down to 50%, 10 cultures have been done, flu studies noted to be negative, Rocephin is 1 g along with Zithromax we will increase the dose of Rocephin to 2 g and add vancomycin as well for now, prior to intubation patient was complaining of stiffness in the upper extremity head and neck area, spinal tap couldn't be performed as patient is on blood thinners, likelihood of meningitis however is low, labs reviewed m edications reviewed critical care time 35 minutes This is a 54-year-old male who was seen evaluated examined in the emergency department this morning he has been not feeling well for 2 weeks of progressive cough shortness of breath associated with purulent sputum production came into emergency department for further evaluation chest x-ray has been negative for any acute process, overall a poor historian he has a long-standing history of cardiovascular problems including chronic atrial fibrillation and flutter history of the chronic systolic heart failure baseline ejection fraction of 30% it is thought to be nonischemic cardiomyopathy, patient has a history of Graves' disease pulmonary embolism thyroid disorder history of falls with the pneumothorax and hemothorax and multiple refracture hospitalized back in 2017 on arrival he was noted to have a low-grade fever now resolved, he is being treated with broad-spectrum antibiotics, bronchodilators as well as IV steroids Objective - Vital Signs Vital signs: Vital Signs Temp 98.8 F 06/21/19 08:00 Pulse 72 06/21/19 09:00 Resp 16 06/21/19 09:00 BP 107/71 06/21/19 09:00 Pulse Ox 98 06/21/19 09:00 Intake & Output 06/20/19 06/21/19 06/21/19 18:59 06:59 18:59 Intake Total 1700.389 530.438 Output Total 600 580 425 Balance -600 1120.389 105.438 Weight 81.647 kg 91 kg Intake: IV 1300 400 Sodium Chloride 0.9% 1, 800 400 000 ml @ 100 mls/hr IV . Q10H RENZO Rx#:[id number] Sodium Chloride 0.9% 250 500 ml @ 999 mls/hr IV .Q16M RENZO Rx#:[id number] Intake, IV Titration 160.389 130.438 Amount Cisatracurium 200 mg In 32.088 Sodium Chloride 0.9% 180 ml @ 1 MCG/KG/MIN 4.899 mls/hr IV .Q24H RENZO Rx#: [id number] Norepinephrine 4 mg In 14.258 98.35 Sodium Chloride 0.9% 250 ml @ 0.05 MCG/KG/MIN 15. 554 mls/hr IV .[id number] RENZO Rx#:[id number] Propofol 1,000 mg In 146.131 Empty Bag 1 bag @ Titrate IV .Q0M RENZO Rx#: [id number] Oral 240 Output: Urine 600 580 425 Other: Voiding Method Urinal Indwelling Catheter ABP, PAP, CO, CI - Last Documented Arterial Blood Pressure 118/55 - Exam - Constitutional General appearance: average body habitus, stable currently with medical paralysis and propofol - EENT Eyes: anicteric sclerae, EOMI, PERRLA, poor dentition, normal appearance Ears: bilateral: normal - Neck Neck: normal ROM Carotids: bilateral: upstroke normal Thyroid: bilateral: normal size - Respiratory Respiratory: bilateral: diminished, wheezing, negative: CTA, - Cardiovascular Rhythm: regular Heart sounds: normal: S1, S2 - Gastrointestinal General gastrointestinal: normal bowel sounds, soft - Integumentary Integumentary: normal turgor - Neurologic Cannot assess being on ventilator - Musculoskeletal Cannot assess being on ventilator - Psychiatric Psychiatric: Cannot assess being on ventilator - Labs CBC & Chem 7: 06/21/19 03:10 06/21/19 03:10 Labs: Abnormal Lab Results - Last 24 Hours (Table) 06/20/19 06/20/19 06/20/19 Range/Units 16:49 17:07 17:10 RBC (4.30-5.90) m/uL Hgb (13.0-17.5) gm/dL Hct (39.0-53.0) % Plt Count (150-450) k/uL Lymphocytes # (Manual) (1.0-4.8) k/uL Metamyelocytes # (Man) (0) k/uL ABG pH 7.23 L (7.35-7.45) ABG pO2 (83-108) mmHg ABG HCO3 16 L (21-25) mmol/L ABG Total CO2 17 L (19-24) mmol/L ABG O2 Saturation (94-97) % Sodium (137-145) mmol/L Chloride (98-107) mmol/L Carbon Dioxide (22-30) mmol/L BUN (9-20) mg/dL Creatinine (0.66-1.25) mg/dL Glucose (74-99) mg/dL POC Glucose (mg/dL) 271 H (75-99) mg/dL Plasma Lactic Acid Ernesto (0.7-2.0) mmol/L Calcium (8.4-10.2) mg/dL CK-MB (CK-2) 3.1 H (0.0-2.4) ng/mL Urine Protein (Negative) Urine Glucose (UA) (Negative) Urine Blood (Negative) Urine Bacteria (None) /hpf Hyaline Casts (0-2) /lpf Urine Mucus (None) /hpf 06/20/19 06/20/19 06/20/19 Range/Units 18:30 20:08 21:36 RBC (4.30-5.90) m/uL Hgb (13.0-17.5) gm/dL Hct (39.0-53.0) % Plt Count (150-450) k/uL Lymphocytes # (Manual) (1.0-4.8) k/uL Metamyelocytes # (Man) (0) k/uL ABG pH (7.35-7.45) ABG pO2 (83-108) mmHg ABG HCO3 (21-25) mmol/L ABG Total CO2 (19-24) mmol/L ABG O2 Saturation (94-97) % Sodium (137-145) mmol/L Chloride (98-107) mmol/L Carbon Dioxide (22-30) mmol/L BUN (9-20) mg/dL Creatinine (0.66-1.25) mg/dL Glucose (74-99) mg/dL POC Glucose (mg/dL) 248 H 212 H (75-99) mg/dL Plasma Lactic Acid Ernesto 3.2 H* (0.7-2.0) mmol/L Calcium (8.4-10.2) mg/dL CK-MB (CK-2) (0.0-2.4) ng/mL Urine Protein (Negative) Urine Glucose (UA) (Negative) Urine Blood (Negative) Urine Bacteria (None) /hpf Hyaline Casts (0-2) /lpf Urine Mucus (None) /hpf 06/20/19 06/20/19 06/20/19 Range/Units 21:37 21:57 22:37 RBC (4.30-5.90) m/uL Hgb (13.0-17.5) gm/dL Hct (39.0-53.0) % Plt Count (150-450) k/uL Lymphocytes # (Manual) (1.0-4.8) k/uL Metamyelocytes # (Man) (0) k/uL ABG pH 7.29 L (7.35-7.45) ABG pO2 164 H (83-108) mmHg ABG HCO3 18 L (21-25) mmol/L ABG Total CO2 (19-24) mmol/L ABG O2 Saturation 99.4 H (94-97) % Sodium (137-145) mmol/L Chloride (98-107) mmol/L Carbon Dioxide (22-30) mmol/L BUN (9-20) mg/dL Creatinine (0.66-1.25) mg/dL Glucose (74-99) mg/dL POC Glucose (mg/dL) 198 H (75-99) mg/dL Plasma Lactic Acid Ernesto 4.5 H* (0.7-2.0) mmol/L Calcium (8.4-10.2) mg/dL CK-MB (CK-2) (0.0-2.4) ng/mL Urine Protein (Negative) Urine Glucose (UA) (Negative) Urine Blood (Negative) Urine Bacteria (None) /hpf Hyaline Casts (0-2) /lpf Urine Mucus (None) /hpf 06/20/19 06/21/19 06/21/19 Range/Units 22:39 00:01 02:11 RBC (4.30-5.90) m/uL Hgb (13.0-17.5) gm/dL Hct (39.0-53.0) % Plt Count (150-450) k/uL Lymphocytes # (Manual) (1.0-4.8) k/uL Metamyelocytes # (Man) (0) k/uL ABG pH 7.34 L 7.27 L (7.35-7.45) ABG pO2 141 H 282 H (83-108) mmHg ABG HCO3 18 L 20 L (21-25) mmol/L ABG Total CO2 (19-24) mmol/L ABG O2 Saturation 98.8 H 99.6 H (94-97) % Sodium (137-145) mmol/L Chloride (98-107) mmol/L Carbon Dioxide (22-30) mmol/L BUN (9-20) mg/dL Creatinine (0.66-1.25) mg/dL Glucose (74-99) mg/dL POC Glucose (mg/dL) (75-99) mg/dL Plasma Lactic Acid Ernesto (0.7-2.0) mmol/L Calcium (8.4-10.2) mg/dL CK-MB (CK-2) (0.0-2.4) ng/mL Urine Protein Trace H (Negative) Urine Glucose (UA) 2+ H (Negative) Urine Blood Moderate H (Negative) Urine Bacteria Occasional H (None) /hpf Hyaline Casts 24 H (0-2) /lpf Urine Mucus Rare H (None) /hpf 06/21/19 06/21/19 06/21/19 Range/Units 03:10 03:10 06:37 RBC 3.55 L (4.30-5.90) m/uL Hgb 11.4 L (13.0-17.5) gm/dL Hct 34.5 L (39.0-53.0) % Plt Count 101 L (150-450) k/uL Lymphocytes # (Manual) 0.25 L (1.0-4.8) k/uL Metamyelocytes # (Man) 0.05 H (0) k/uL ABG pH (7.35-7.45) ABG pO2 (83-108) mmHg ABG HCO3 (21-25) mmol/L ABG Total CO2 (19-24) mmol/L ABG O2 Saturation (94-97) % Sodium 136 L (137-145) mmol/L Chloride 108 H (98-107) mmol/L Carbon Dioxide 18 L (22-30) mmol/L BUN 35 H (9-20) mg/dL Creatinine 1.55 H (0.66-1.25) mg/dL Glucose 183 H (74-99) mg/dL POC Glucose (mg/dL) 211 H (75-99) mg/dL Plasma Lactic Acid Ernesto (0.7-2.0) mmol/L Calcium 7.6 L (8.4-10.2) mg/dL CK-MB (CK-2) (0.0-2.4) ng/mL Urine Protein (Negative) Urine Glucose (UA) (Negative) Urine Blood (Negative) Urine Bacteria (None) /hpf Hyaline Casts (0-2) /lpf Urine Mucus (None) /hpf Assessment and Plan Assessment: Acute hypoxic and hypercapnic respiratory failure Severe sepsis from unknown source Acute COPD exacerbation Purulent tracheobronchitis Cardiomyopathy nonischemic baseline ejection fraction 35%, chronic systolic heart failure Chronic atrial flutter fibrillation on Xarelto History of fall with multiple rib fracture pneumothorax History of extensive smoking and nicotine use Plan: Overall plan includes Taper sedation, get rid of medical paralysis anticoagulation on board Breathing treatment IV steroids Broad-spectrum antibiotics, and adjust antibiotics and Vanco increase the dose of Rocephin Monitor clinical course closely Continue gentle hydration Further recommendations pending plan of care as per clinical response of the patient Patient not ready for weaning Time with Patient: Greater than 30
[2019-06-21] MEDS: RIVAROXABAN 20 MG TAB PO SCH (10:54)
[2019-06-21] MEDS ORDERED: VANCOMYCIN IV PER PHARMACY 1 EACH MISC MISCELLANE PRN (10:55)
[2019-06-21] MEDS: ERGOCALCIFEROL 50,000 UNIT CAP PO SCH (11:01)
[2019-06-21] MEDS ORDERED: VANCOMYCIN 1,500 MG in SODIUM CHLORIDE 0.9% 250 ML IVPB ONE (11:30)
[2019-06-21 11:40] LABS: Glucose,Whole Blood 188 mg/dL (75-99)
[2019-06-21] MEDS: MULTIVITAMINS, THERA 1 EACH TAB PO SCH (12:05)
--- NOTE | 2019-06-21 14:40 | PN ---
PROGRESS NOTE DATE OF SERVICE: 07/01/2019 This is a 54-year-old gentleman who was admitted with COPD exacerbation, also bronchopneumonia, had significant difficulty with respiration last night. The patient also despite extensive bronchodilator treatment, patient had acute respiratory acidosis. Patient unable to keep and maintain the airway. Patient mechanically intubated and monitored in ICU at this time. The patient is on Nimbex drip. Dr. David is following the patient closely. The vent settings are assist-control 500 and FiO2 at 50%, PEEP of 5. The flu is negative. The creatinine is elevated 1.5. The most recent chest x-ray reviewed personally by me showed bilateral infiltrates also. PAST MEDICAL HISTORY: Reviewed. REVIEW OF SYSTEMS: Review of system could not be taken, the patient is currently mechanically ventilated and sedated. CURRENT MEDICATIONS: Reviewed include: 1. Tylenol p.r.n. 2. [place] 7.5 q.6 p.r.n.. 3. Ventolin 2.5 q.4 p.r.n. 4. DuoNeb q.i.d. and p.r.n. 5. Cordarone 200 mg p.o. daily. 6. Artificial Tears. 7. Lipitor 10 mg q.h.s. 8. Zithromax 500 mg daily. 9. Pulmicort 0.5 daily. 10.Rocephin 2 g IV daily. 11.Peridex 15 mL daily. 13.Perforomist. 14.Lasix. 15.NovoLog. 16.Zestril. 17.Ativan. 18.Lopressor. 19.Singular. 20.Morphine sulfate. 21.Narcan. 22.Habitrol. 23.Paxil. 24.MiraLAX. 25.Seroquel. 26.Xarelto. 27.Vancomycin. PHYSICAL EXAM: Patient is mechanically sedated, pulse 87, blood pressure 89/56, respirations 16, temperature 99.4, pulse ox 98% on 50% vent settings. Vent settings are noted. HEENT: Conjunctivae normal. NECK: No jugular venous distension. CARDIOVASCULAR SYSTEM: S1, S2 muffled. RESPIRATORY SYSTEM: Breath sounds diminished at the bases, bilateral scattered rhonchi, no crackles. ABDOMEN: Soft, obese. LEGS: No edema, no swelling. NERVOUS SYSTEM: Patient is sedated. LAB STUDIES: WBC is 4.2, hemoglobin is 11.4, platelets 101. Plasma lactic acid 4.5 and 1. ASSESSMENT: 1. Chronic obstructive pulmonary disease acute exacerbation with bilateral bronchopneumonia as acute hypoxic respiratory failure with severe sepsis present on admission with on mechanical ventilation. 2. Change in mental status, metabolic encephalopathy, multifactorial. 3. Number is creatinine with chronic kidney stage 3 with possible acute on chronic kidney disease, acute tubular necrosis. 4. Thrombocytopenia. 5. History of paroxysmal atrial flutter fibrillation. 6. History of congestive heart failure with chronic systolic dysfunction ejection fraction 30% to 35%. 7. History of chronic obstructive pulmonary disease. 8. Hypertension. 9. History of myocardial infarction. 10.History of pneumonia. 11.History of pulmonary embolism. 12.History of syncope. 13.History of hypothyroidism,. history of Graves disease. 14.History of squamous cell skin cancer. 15.History of fall and pneumothorax and hemothorax. 16.History of MRSA. 17.History of adenoidectomy, cholecystectomy. 18.History of cardiac ablation for atrial flutter. 19.History of anxiety. 20.History of continued ongoing nicotine dependence. 21.FULL CODE. RECOMMENDATIONS: Recommend to continue current management and symptomatic, continue bronchodilators continue empiric antibiotics. Follow the cultures. Monitor creatinine closely. Closely follow with Dr. David. Prognosis guarded because of multiple complex medical issues. Further recommendations to follow. See orders for details. Monitor blood sugars closely. MMODL / IJN: [id number] / MTDD
[2019-06-21] MEDS: AZITHROMYCIN 500 MG in SODIUM CHLORIDE 0.9% 250 ML IVPB SCH (15:08)
[2019-06-21] MEDS: MORPHINE SULFATE 2 MG/ML SYRINGE IVP PRN ×2 (15:08→22:03)
[2019-06-21 16:58] LABS: Glucose,Whole Blood 171 mg/dL (75-99)
[2019-06-21] MEDS: LORazepam 2 MG/ML INJ IV PRN ×2 (17:17→20:53)
[2019-06-21 20:38] LABS: Glucose,Whole Blood 174 mg/dL (75-99)
[2019-06-21] MEDS: ATORVASTATIN 10 MG TAB PO SCH (21:47)
[2019-06-21] MEDS: MONTELUKAST 10 MG TAB PO SCH (21:47)
[2019-06-21] MEDS: QUEtiapine 100 MG TAB PO SCH (22:00)
--- NOTE | 2019-06-21 22:12 | P.CONS ---
History of Present Illness - Reason for Consult Consult date: 06/21/19 sepsis Requesting physician: Remy David - Chief Complaint shortness of breath and cough x few days - History of Present Illness Patient is a 54-year male with a past medical history difficult for COPD presented to [facility] ER yesterday with chief complaints of increasing shortness of breath and concern for possible developing pneumonia patient did mention to the ER physician that he was having cough that has been going on for couple of weeks now that has been progressively getting worse getting more productive the patient was complaining of more shortness of breath on presentation to hospital patient did have a chest x-ray was negative for any acute pulmonary process patient did not have any fever on presentation to hospital and the patient white count was normal influenza serology was negative and UA was negative patient was started on steroid on addition to the Rocephin and Zithromax and was admitted to the hospital subsequently the patient did spike a fever of 102 F around midnight and did have a fever 100.8 afterwards patient also and respiratory distress and Agitation but no clear documentation of the patient complaining of any headache but there is some question of patient complaining of some neck pain, the patient was transferred to ICU and subsequently to getting intubated to protect his airways per discussion with the nurse taking care of the patient no significant purulent secretion was aspirated at the time of intubation, patient antibiotic were adjusted by the sql architect to Rocephin 2 g daily and vancomycin was added infectious disease was consulted for further recommendation regarding possible sepsis LP was considered which could not be done as the patient was on Xarelto no history could be obtained from this patient and no family at the bedside most information obtained from review the chart and discussion with the nursing staff Review of Systems Positive point has been mentioned in HPI complete review could not be obtained because of underlying intubated status Past Medical History Past Medical History: Atrial Fibrillation, Atrial Flutter, Cancer, Chest Pain / Angina, Heart Failure, COPD, Hyperlipidemia, Hypertension, Myocardial Infarction ([place]), Pneumonia, Pulmonary Embolus ([place]), Syncope, Thyroid Disorder Additional Past Medical History / Comment(s): Nonischemic cardiomyopathy with an ejection fraction of 30-35%, Graves disease, tremors, pulmonary embolism 04/22/2016, squamous cell skin cancer with removal, severe fall down flight of steps in 2016-was in ICU w/fx. ribs,pneumonthorax/hemothorax required chest tubes,past resp failure requiring vent/trach. chronic alcoholism, recent admission for SOB, see Dr Martins [facility] Last Myocardial Infarction Date:: October 2016 History of Any Multi-Drug Resistant Organisms: MRSA Year Discovered:: 05/24/17 MDRO Source:: bronch/sputum Past Surgical History: Adenoidectomy, Cholecystectomy, Tonsillectomy Additional Past Surgical History / Comment(s): 12/23/17 cardiac ablation for a flutter, RT HAND SX (TENDON REPAIR).RT THIGH SKIN LESION EXCISION(SQUAMOUS CELL CARCINOMA), functional endoscopic sinus surgery/septoplasty,chest tube/ trach & feeding tube 2016 after a fall, bronchoscopy. Past Anesthesia/Blood Transfusion Reactions: No Reported Reaction Past Psychological History: Anxiety Smoking Status: Current some day smoker Past Alcohol Use History: Heavy Past Drug Use History: None Reported - Past Family History Mother Family Medical History: Cancer, Congestive Heart Failure (CHF), Coronary Artery Disease (CAD), CVA/TIA Additional Family Medical History / Comment(s): Mother had throat cancer and of this at the age of 68yrs. Father Additional Family Medical History / Comment(s): IN [place] WHEN PT WAS 1 YEARS OLD. Medications and Allergies Home Medications Medication Instructions Recorded Confirmed Type Amiodarone HCl [Pacerone] 200 mg PO DAILY 07/23/17 06/20/19 History PARoxetine HCL [Paxil] 40 mg PO DAILY 07/23/17 06/20/19 History QUEtiapine [SEROquel] 100 mg PO HS 07/23/17 06/20/19 History Albuterol Inhaler [Ventolin Hfa 2 puff INHALATION RT-Q6H PRN 12/17/17 06/20/19 History Inhaler] Albuterol Nebulized [Ventolin 2.5 mg INHALATION RT-TID 12/17/17 06/20/19 History Nebulized] Atorvastatin [Lipitor] 10 mg PO HS 12/17/17 06/20/19 History Metoprolol Tartrate [Lopressor] 50 mg PO BID 12/17/17 06/20/19 History Pantoprazole [Protonix] 40 mg PO DAILY 12/17/17 06/20/19 History Umeclidinium [place] [Incruse 1 puff INHALATION RT-DAILY 12/17/17 06/20/19 His tory Ellipta] Budesonide [Pulmicort Flexhaler] 2 puff INHALATION RT-BID 01/03/18 06/20/19 His tory Lisinopril [Zestril] 5 mg PO DAILY #30 tab 01/05/18 06/20/19 Rx Ergocalciferol [Vitamin D2 50,000 unit PO MOWEFR 02/03/19 06/20/19 History (DRISDOL)] Furosemide [Lasix] 40 mg PO DAILY 02/03/19 06/20/19 History Polyethylene Glycol 3350 [Miralax] 17 gm PO DAILY 02/03/19 06/20/19 History Montelukast [Singulair] 10 mg PO HS 30 Days #30 tab 02/07/19 06/20/19 Rx Rivaroxaban [Xarelto] 20 mg PO DAILY 06/20/19 06/20/19 History Allergies Allergy/AdvReac Type Severity Reaction Status Date / Time warfarin [From Coumadin] AdvReac MAKES Verified 06/20/19 09:29 BLOOD TOO THIN Physical Exam Vitals: Vital Signs Temp Pulse Resp BP Pulse Ox 06/21/19 21:00 94 16 90/57 97 06/21/19 20:46 90 06/21/19 20:21 90 06/21/19 20:19 90 06/21/19 20:00 99.0 F 90 18 99 06/21/19 19:54 90 06/21/19 19:00 95 11 L 93/58 98 06/21/19 18:00 98 16 93/59 97 06/21/19 17:00 96 18 83/56 100 06/21/19 16:00 100.0 F H 91 18 91/61 96 06/21/19 15:43 90 06/21/19 15:33 90 06/21/19 15:00 91 22 90/60 97 06/21/19 14:00 92 19 89/56 99 06/21/19 13:00 92 16 85/57 98 06/21/19 12:00 99.4 F 87 16 89/56 98 06/21/19 11:57 87 06/21/19 11:49 88 06/21/19 11:00 86 16 112/64 98 06/21/19 10:00 81 16 106/66 100 06/21/19 09:00 72 16 107/71 98 06/21/19 08:12 67 06/21/19 08:00 98.8 F 67 16 98/61 99 06/21/19 07:56 72 06/21/19 07:55 72 06/21/19 07:42 70 06/21/19 07:00 70 16 98/61 98 06/21/19 06:00 72 16 92/60 96 06/21/19 05:00 77 16 89/62 96 06/21/19 04:00 100.8 F H 81 16 85/57 97 06/21/19 03:55 81 06/21/19 03:46 82 06/21/19 03:00 83 25 H 97/50 98 06/21/19 02:00 97 19 123/80 98 06/21/19 01:00 91 33 H 116/69 98 06/21/19 00:41 96 06/21/19 00:31 92 06/21/19 00:00 102.0 F H 92 20 118/86 97 06/20/19 23:00 90 21 102/64 97 Intake and Output 06/21/19 06/21/19 06/21/19 06:59 14:59 22:59 Intake Total 8350.704 2936.326 910.498 Output Total 580 1350 525 Balance 880.389 894.326 385.498 Intake: IV 1300 1900 850 Azithromycin 500 mg In 250 Sodium Chloride 0.9% 250 ml @ 250 mls/hr IVPB Q24H RENZO Rx#:[id number] Sodium Chloride 0.9% 1, 800 1600 600 000 ml @ 100 mls/hr IV . Q10H RENZO Rx#:[id number] Sodium Chloride 0.9% 250 500 ml @ 999 mls/hr IV .Q16M RENZO Rx#:[id number] Vancomycin 1,500 mg In 250 Sodium Chloride 0.9% 250 ml @ 125 mls/hr IVPB Q16H RENZO Rx#:[id number] cefTRIAXone 1 gm In 50 Sodium Chloride 0.9% 50 ml @ 100 mls/hr IVPB Q24HR RENZO Rx#:[id number] Intake, IV Titration 160.389 344.326 60.498 Amount Cisatracurium 200 mg In 32.088 17.021 Sodium Chloride 0.9% 180 ml @ 1 MCG/KG/MIN 4.899 mls/hr IV .Q24H RENZO Rx#: [id number] Norepinephrine 4 mg In 14.258 120.385 0 Sodium Chloride 0.9% 250 ml @ 0.05 MCG/KG/MIN 15. 554 mls/hr IV .[id number] RENZO Rx#:[id number] Propofol 1,000 mg In 146.131 191.853 43.477 Empty Bag 1 bag @ Titrate IV .Q0M RENZO Rx#: [id number] Output: Urine 580 1350 525 Other: Voiding Method Indwelling Catheter Indwelling Catheter Indwelling Catheter Weight 91 kg ABP, PAP, CO, CI - Last 8 Hours Arterial Blood Pressure 89/42 Arterial Blood Pressure 101/49 Arterial Blood Pressure 91/45 Arterial Blood Pressure 109/51 Arterial Blood Pressure 114/52 Arterial Blood Pressure 111/52 Arterial Blood Pressure 108/54 GENERAL DESCRIPTION: Middle-aged male lying in bed intubated on the vent. No tachypnea or accessory muscle of respiration use. HEENT: Shows Pallor , no scleral icterus. Patient is orally intubated with examination of oral cavity nECK: Trachea central, no thyromegaly. LUNGS: Unlabored breathing. Decreased breath sounds at bases. No wheeze or crackle. HEART: S1, S2, regular rate and rhythm. ABDOMEN: Soft, no tenderness , guarding or rigidity EXTREMITIES: No edema of feet. SKIN: No rash, no masses palpable. NEUROLOGICAL: The patient is sedated intubated on the vent. Results CBC & Chem 7: 06/21/19 03:10 06/21/19 03:10 Labs: Abnormal Lab Results - Last 24 Hours (Table) 06/20/19 06/20/19 06/21/19 Range/Units 22:37 22:39 00:01 RBC (4.30-5.90) m/uL Hgb (13.0-17.5) gm/dL Hct (39.0-53.0) % Plt Count (150-450) k/uL Lymphocytes # (Manual) (1.0-4.8) k/uL Metamyelocytes # (Man) (0) k/uL ABG pH 7.34 L (7.35-7.45) ABG pO2 141 H (83-108) mmHg ABG HCO3 18 L (21-25) mmol/L ABG O2 Saturation 98.8 H (94-97) % Sodium (137-145) mmol/L Chloride (98-107) mmol/L Carbon Dioxide (22-30) mmol/L BUN (9-20) mg/dL Creatinine (0.66-1.25) mg/dL Glucose (74-99) mg/dL POC Glucose (mg/dL) (75-99) mg/dL Plasma Lactic Acid Ernesto 4.5 H* (0.7-2.0) mmol/L Calcium (8.4-10.2) mg/dL Urine Protein Trace H (Negative) Urine Glucose (UA) 2+ H (Negative) Urine Blood Moderate H (Negative) Urine Bacteria Occasional H (None) /hpf Hyaline Casts 24 H (0-2) /lpf Urine Mucus Rare H (None) /hpf 06/21/19 06/21/19 06/21/19 Range/Units 02:11 03:10 03:10 RBC 3.55 L (4.30-5.90) m/uL Hgb 11.4 L (13.0-17.5) gm/dL Hct 34.5 L (39.0-53.0) % Plt Count 101 L (150-450) k/uL Lymphocytes # (Manual) 0.25 L (1.0-4.8) k/uL Metamyelocytes # (Man) 0.05 H (0) k/uL ABG pH 7.27 L (7.35-7.45) ABG pO2 282 H (83-108) mmHg ABG HCO3 20 L (21-25) mmol/L ABG O2 Saturation 99.6 H (94-97) % Sodium 136 L (137-145) mmol/L Chloride 108 H (98-107) mmol/L Carbon Dioxide 18 L (22-30) mmol/L BUN 35 H (9-20) mg/dL Creatinine 1.55 H (0.66-1.25) mg/dL Glucose 183 H (74-99) mg/dL POC Glucose (mg/dL) (75-99) mg/dL Plasma Lactic Acid Ernesto (0.7-2.0) mmol/L Calcium 7.6 L (8.4-10.2) mg/dL Urine Protein (Negative) Urine Glucose (UA) (Negative) Urine Blood (Negative) Urine Bacteria (None) /hpf Hyaline Casts (0-2) /lpf Urine Mucus (None) /hpf 06/21/19 06/21/19 06/21/19 Range/Units 06:37 11:38 16:57 RBC (4.30-5.90) m/uL Hgb (13.0-17.5) gm/dL Hct (39.0-53.0) % Plt Count (150-450) k/uL Lymphocytes # (Manual) (1.0-4.8) k/uL Metamyelocytes # (Man) (0) k/uL ABG pH (7.35-7.45) ABG pO2 (83-108) mmHg ABG HCO3 (21-25) mmol/L ABG O2 Saturation (94-97) % Sodium (137-145) mmol/L Chloride (98-107) mmol/L Carbon Dioxide (22-30) mmol/L BUN (9-20) mg/dL Creatinine (0.66-1.25) mg/dL Glucose (74-99) mg/dL POC Glucose (mg/dL) 211 H 188 H 171 H (75-99) mg/dL Plasma Lactic Acid Ernesto (0.7-2.0) mmol/L Calcium (8.4-10.2) mg/dL Urine Protein (Negative) Urine Glucose (UA) (Negative) Urine Blood (Negative) Urine Bacteria (None) /hpf Hyaline Casts (0-2) /lpf Urine Mucus (None) /hpf 06/21/19 Range/Units 20:37 RBC (4.30-5.90) m/uL Hgb (13.0-17.5) gm/dL Hct (39.0-53.0) % Plt Count (150-450) k/uL Lymphocytes # (Manual) (1.0-4.8) k/uL Metamyelocytes # (Man) (0) k/uL ABG pH (7.35-7.45) ABG pO2 (83-108) mmHg ABG HCO3 (21-25) mmol/L ABG O2 Saturation (94-97) % Sodium (137-145) mmol/L Chloride (98-107) mmol/L Carbon Dioxide (22-30) mmol/L BUN (9-20) mg/dL Creatinine (0.66-1.25) mg/dL Glucose (74-99) mg/dL POC Glucose (mg/dL) 174 H (75-99) mg/dL Plasma Lactic Acid Ernesto (0.7-2.0) mmol/L Calcium (8.4-10.2) mg/dL Urine Protein (Negative) Urine Glucose (UA) (Negative) Urine Blood (Negative) Urine Bacteria (None) /hpf Hyaline Casts (0-2) /lpf Urine Mucus (None) /hpf Microbiology - Last 24 Hours (Table) 06/20/19 18:30 Blood Culture - Preliminary Blood No Growth after 24 hours 06/21/19 02:25 Gram Stain - Preliminary Sputum Sputum Culture - Preliminary Assessment and Plan Assessment: -patient with fever around midnight and this patient with a history of COPD presented to hospital with increasing shortness of breath and cough that has been progressively getting worse of the last week or so this patient with no clear history of any significant headache the initial chest x-ray reported negative PPD showing increasing markings at the base likely source of this fever and sepsis is pneumonia meningitis less likely but not entirely excluded. (1) Pneumonia Current Visit: Yes Status: Acute Code(s): J18.9 - PNEUMONIA, UNSPECIFIED ORGANISM SNOMED Code(s): 750889074 (2) Fever Current Visit: No Status: Acute Code(s): R50.9 - FEVER, UNSPECIFIED SNOMED Code(s): 083585071 Plan: 1-obtain a sputum for Gram stain and culture 2-anesthesia consulted for timing of the LP which was completed fluid should be sent for Gram stain culture glucose protein cell count and differential 3-vancomycin pharmacy to dose her with a target trough of 15 while watching her kidney function and Vanco trough closely And Rocephin to continue for now. We will follow on clinical condition and cultures to further adjust medication if needed Thank you for this consultation we will follow the patient along with you Time with Patient: Greater than 30
[2019-06-22] MEDS: PROPOFOL 1,000 MG in EMPTY BAG 1 BAG IV SCH ×6 (00:56→19:50)
[2019-06-22] MEDS: methylPREDNISolone SOD SUCCI 125 MG/2 ML VIAL IV SCH ×4 (00:56→17:11)
[2019-06-22] MEDS: LORazepam 2 MG/ML INJ IV PRN ×3 (02:16→15:29)
[2019-06-22] MEDS: CISATRACURIUM 200 MG in SODIUM CHLORIDE 0.9% 180 ML IV SCH (04:13)
[2019-06-22 04:23] LABS: Basophils % (A) 0 %; Eosinophils % (A) 0 %; HCT 32.5 % (39.0-53.0); HGB 10.6 gm/dL (13.0-17.5); Lymphocytes # (A) 0.6 k/uL (1.0-4.8); Lymphocytes % (A) 14 %; MCH 31.9 pg (25.0-35.0); MCHC 32.8 g/dL (31.0-37.0); MCV 97.1 fL (80.0-100.0); Mean Platelet Volume 7.5; Monocytes # (A) 0.2 k/uL (0-1.0); Monocytes % (A) 4 %; Neutrophils # (A) 3.2 k/uL (1.3-7.7); Neutrophils % (A) 80 %; RBC 3.34 m/uL (4.30-5.90); RDW 14.2 % (11.5-15.5)
[2019-06-22 04:50] LABS: Calcium 7.9 mg/dL (8.4-10.2); Potassium 3.4 mmol/L (3.5-5.1)
[2019-06-22] MEDS ORDERED: Potassium Replacement Protocol 1 EACH MISC MISCELLANE PRN (05:01)
[2019-06-22 05:08] LABS: ABG Base Excess -6.3 mmol/L; ABG HCO3 20 mmol/L (21-25); ABG Oxygen Saturation 98.8 % (94-97); ABG PCO2 39 mmHg (35-45); ABG PH 7.32 (7.35-7.45); ABG PO2 109 mmHg (83-108); ABG TCO2 21 mmol/L (19-24); Allen Test Performed? Yes
[2019-06-22 05:11] LABS: Platelet Count 96 k/uL (150-450)
[2019-06-22] MEDS: POTASSIUM BICARBONATE/CIT AC 20 MEQ TABLET.EFF NG-TUBE SCH ×2 (05:59→06:39)
[2019-06-22] MEDS: NOREPINEPHRINE 4 MG in SODIUM CHLORIDE 0.9% 250 ML IV SCH (05:59)
[2019-06-22] MEDS: SODIUM CHLORIDE 0.9% 1,000 ML IV SCH ×2 (05:59→15:29)
[2019-06-22 06:41] LABS: Glucose,Whole Blood 221 mg/dL (75-99)
[2019-06-22] MEDS: INSULIN ASPART (NovoLOG) 100 UNIT/ML VIAL SQ SCH ×4 (06:43→21:54)
--- NOTE | 2019-06-22 07:27 | XR ---
EXAMINATION TYPE: XR chest 1V portable DATE OF EXAM: 06/22/2019 COMPARISON: 06/21/2019 HISTORY: Endotracheal tube placement and enteric tube placement. Shortness of breath. TECHNIQUE: Single frontal view of the chest is obtained. FINDINGS: Similar-appearing small layering right pleural effusion and right basilar opacity. Mild in terstitial prominence throughout. Cardia mediastinal silhouette is enlarged. Enteric and endotracheal tubes are similar in position and satisfactory. Old healed right rib fractures are seen. IMPRESSION: Similar small right pleural effusion and right basilar airspace disease with minimal alyssa ma.
[2019-06-22] MEDS: IPRATROPIUM-ALBUTEROL 3 ML NEB INHALATION SCH ×4 (07:36→19:32)
[2019-06-22] MEDS: FORMOTEROL FUMARATE 20 MCG/2 ML NEBU INHALATION SCH ×2 (07:36→19:32)
[2019-06-22] MEDS: BUDESONIDE 1 MG/2 ML NEBU INHALATION SCH ×2 (07:36→19:32)
[2019-06-22] MEDS: AMIODARONE 200 MG TAB PO SCH (08:23)
[2019-06-22] MEDS: PARoxetine 20 MG TAB PO SCH (08:23)
[2019-06-22] MEDS: CHLORHEXIDINE GLUCONATE 15 ML CUP MUCOUS MEM SCH ×2 (08:23→19:44)
[2019-06-22] MEDS: NICOTINE 14MG/24HR PATCH TRANSDERM SCH (08:24)
[2019-06-22] MEDS: POLYETHYLENE GLYCOL 3350 17 GM POWD.PACK PO SCH (08:24)
[2019-06-22] MEDS: METOPROLOL TARTRATE 50 MG TAB PO SCH ×2 (08:24→21:20)
[2019-06-22] MEDS: FUROSEMIDE 10 MG/ML 4 ML VIAL IV SCH (08:24)
[2019-06-22] MEDS: LISINOPRIL 5 MG TAB PO SCH (08:28)
[2019-06-22] MEDS: PANTOPRAZOLE 40 MG/10 ML VIAL IVP SCH (08:28)
[2019-06-22] MEDS: RIVAROXABAN 20 MG TAB PO SCH (08:29)
[2019-06-22 12:13] LABS: Glucose,Whole Blood 148 mg/dL (75-99)
[2019-06-22] MEDS: MULTIVITAMINS, THERA 1 EACH TAB PO SCH (12:29)
[2019-06-22] MEDS ORDERED: VANCOMYCIN 1,500 MG in SODIUM CHLORIDE 0.9% 250 ML IVPB SCH ×3 (13:00)
--- NOTE | 2019-06-22 14:54 | P.PN ---
Subjective Progress Note Date: 06/22/19 (Critical care time 35 minutes) Principal diagnosis: Acute hypoxic and hypercapnic respiratory failure Acute COPD exacerbation Purulent tracheobronchitis Cardiomyopathy nonischemic baseline ejection fraction 35%, chronic systolic heart failure Chronic atrial flutter fibrillation History of fall with multiple rib fracture pneumothorax History of extensive smoking and nicotine use 06/22/2019, patient seen eval reexamined during the rounds, Nimbex drip have been tapered and DC'd, patient remains on full ventilator support, fall was attempted to wean down but patient becomes anxious and agitated he does intermittently open eyes, he remains on assist control mode rate of 16 and tidal volume of 500+5 of PEEP and 50% oxygen, white cell count is 4000 with stable hemoglobin of 710.6, arterial blood gases on above vent setting include pH is 7.32 pCO2 30 and pO2 109 FiO2 subsequently decreased to 40%, order have been placed restart the tube feed patient remains on vancomycin and high-dose Rocephin, patient has been evaluated by infectious disease services the pretest probability of the meningitis is low but he remains on emperic therapy, will wean down the propofol further and reassess the mental status and try to wean as tolerated, chest x-ray showed right lower lobe pneumonia and a small effusion 06/21/2019, patient seen eval reexamined during the rounds events from earlier this morning noted patient developed respiratory distress and severe metabolic acidosis likely related to acute COPD exacerbation and severe sepsis from unknown source, patient was intubated due to severe agitation patient has been started on medical paralysis we'll start tapering it down now currently patient is 4 out of 4 will cut it down to half and gradually taper and DC it continue propofol for sedation, supplemental it with Ativan and morphine, chest x-ray from earlier this morning reviewed prominent interstitium has been noted, lacking lactic acid noted to have improved, patient had been aggressively resuscitated with crystalloids, blood pressure is normal the levo fed is being titrated down currently he is on 2 mics, when setting includes assist control rate of 16 and tidal volume of 500 PEEP of 5 and FiO2 is down to 50%, 10 cultures have been done, flu studies noted to be negative, Rocephin is 1 g along with Zithromax we will increase the dose of Rocephin to 2 g and add vancomycin as well for now, prior to intubation patient was complaining of stiffness in the upper extremity head and neck area, spinal tap couldn't be performed as patient is on blood thinners, likelihood of meningitis however is low, labs reviewed medications reviewed critical care time 35 minutes This is a 54-year-old male who was seen evaluated examined in the emergency department this morning he has been not feeling well for 2 weeks of progressive cough shortness of breath associated with purulent sputum production came into emergency department for further evaluation chest x-ray has been negative for any acute process, overall a poor historian he has a long-standing history of cardiovascular problems including chronic atrial fibrillation and flutter history of the chronic systolic heart failure baseline ejection fraction of 30% it is thought to be nonischemic cardiomyopathy, patient has a history of Graves' disease pulmonary embolism thyroid disorder history of falls with the pneumothorax and hemothorax and multiple refracture hospitalized back in 2017 on arrival he was noted to have a low-grade fever now resolved, he is being treated with broad-spectrum antibiotics, bronchodilators as well as IV steroids Objective - Vital Signs Vital signs: Vital Signs Temp 99.1 F 06/22/19 12:00 Pulse 84 06/22/19 13:00 Resp 21 06/22/19 13:00 BP 106/65 06/22/19 13:00 Pulse Ox 100 06/22/19 13:00 Intake & Output 06/21/19 06/22/19 06/22/19 18:59 06:59 18:59 Intake Total 2854.824 1574.760 925.797 Output Total 6012 192 7789 Balance 1204.824 709.760 -149.203 Weight 93 kg Intake: IV 2450 1300 750 Azithromycin 500 mg In 250 Sodium Chloride 0.9% 250 ml @ 250 mls/hr IVPB Q24H [facility] Rx#:[id number] Sodium Chloride 0.9% 1, 1900 1300 500 000 ml @ 100 mls/hr IV . Q10H [facility] Rx#:[id number] Vancomycin 1,500 mg In 250 250 Sodium Chloride 0.9% 250 ml @ 125 mls/hr IVPB Q16H [facility] Rx#:[id number] cefTRIAXone 1 gm In 50 Sodium Chloride 0.9% 50 ml @ 100 mls/hr IVPB Q24HR [facility] Rx#:[id number] Intake, IV Titration 404.824 274.760 175.797 Amount Cisatracurium 200 mg In 49.109 Sodium Chloride 0.9% 180 ml @ 1 MCG/KG/MIN 4.899 mls/hr IV .Q24H [facility] Rx#: [id number] Norepinephrine 4 mg In 120.385 74.760 Sodium Chloride 0.9% 250 ml @ 0.05 MCG/KG/MIN 15. 554 mls/hr IV .[id number] [facility] Rx#:[id number] Propofol 1,000 mg In 235.330 200 175.797 Empty Bag 1 bag @ Titrate IV .Q0M [facility] Rx#: [id number] Output: Urine [id number] Other: Voiding Method Indwelling Catheter Indwelling Catheter Indwelling Catheter ABP, PAP, CO, CI - Last Documented Arterial Blood Pressure 125/56 - Exam - Constitutional General appearance: average body habitus, stable currently with medical paralysis and propofol - EENT Eyes: anicteric sclerae, EOMI, PERRLA, poor dentition, normal appearance Ears: bilateral: normal - Neck Neck: normal ROM Carotids: bilateral: upstroke normal Thyroid: bilateral: normal size - Respiratory Respiratory: bilateral: diminished, wheezing, negative: CTA, - Cardiovascular Rhythm: regular Heart sounds: normal: S1, S2 - Gastrointestinal General gastrointestinal: normal bowel sounds, soft - Integumentary Integumentary: normal turgor - Neurologic Cannot assess being on ventilator - Musculoskeletal Cannot assess being on ventilator - Psychiatric Psychiatric: Cannot assess being on ventilator - Labs CBC & Chem 7: 06/22/19 03:50 06/22/19 03:50 Labs: Abnormal Lab Results - Last 24 Hours (Table) 06/21/19 06/21/19 06/22/19 Range/Units 16:57 20:37 03:50 RBC 3.34 L (4.30-5.90) m/uL Hgb 10.6 L (13.0-17.5) gm/dL Hct 32.5 L (39.0-53.0) % Plt Count 96 L (150-450) k/uL Lymphocytes # 0.6 L (1.0-4.8) k/uL ABG pH (7.35-7.45) ABG pO2 (83-108) mmHg ABG HCO3 (21-25) mmol/L ABG O2 Saturation (94-97) % Potassium (3.5-5.1) mmol/L Chloride (98-107) mmol/L Carbon Dioxide (22-30) mmol/L BUN (9-20) mg/dL Glucose (74-99) mg/dL POC Glucose (mg/dL) 171 H 174 H (75-99) mg/dL Calcium (8.4-10.2) mg/dL 06/22/19 06/22/19 06/22/19 Range/Units 03:50 05:04 06:40 RBC (4.30-5.90) m/uL Hgb (13.0-17.5) gm/dL Hct (39.0-53.0) % Plt Count (150-450) k/uL Lymphocytes # (1.0-4.8) k/uL ABG pH 7.32 L (7.35-7.45) ABG pO2 109 H (83-108) mmHg ABG HCO3 20 L (21-25) mmol/L ABG O2 Saturation 98.8 H (94-97) % Potassium 3.4 L (3.5-5.1) mmol/L Chloride 112 H (98-107) mmol/L Carbon Dioxide 19 L (22-30) mmol/L BUN 33 H (9-20) mg/dL Glucose 211 H (74-99) mg/dL POC Glucose (mg/dL) 221 H (75-99) mg/dL Calcium 7.9 L (8.4-10.2) mg/dL 06/22/19 Range/Units 12:11 RBC (4.30-5.90) m/uL Hgb (13.0-17.5) gm/dL Hct (39.0-53.0) % Plt Count (150-450) k/uL Lymphocytes # (1.0-4.8) k/uL ABG pH (7.35-7.45) ABG pO2 (83-108) mmHg ABG HCO3 (21-25) mmol/L ABG O2 Saturation (94-97) % Potassium (3.5-5.1) mmol/L Chloride (98-107) mmol/L Carbon Dioxide (22-30) mmol/L BUN (9-20) mg/dL Glucose (74-99) mg/dL POC Glucose (mg/dL) 148 H (75-99) mg/dL Calcium (8.4-10.2) mg/dL Microbiology - Last 24 Hours (Table) 06/21/19 02:25 Gram Stain - Preliminary Sputum Sputum Culture - Preliminary Gram Neg Bacilli 06/20/19 22:09 Blood Culture - Preliminary Blood No Growth after 24 hours 06/20/19 18:30 Blood Culture - Preliminary Blood No Growth after 24 hours Assessment and Plan Assessment: Right lower lobe pneumonia Small right-sided pleural effusion Acute hypoxic and hypercapnic respiratory failure Severe sepsis from unknown source Acute COPD exacerbation Purulent tracheobronchitis Cardiomyopathy nonischemic baseline ejection fraction 35%, chronic systolic heart failure Chronic atrial flutter fibrillation on Xarelto History of fall with multiple rib fracture pneumothorax History of extensive smoking and nicotine use Plan: Overall plan includes Taper sedation, get rid of propofol as tolerated anticoagulation on hold for now Breathing treatment IV steroids Broad-spectrum antibiotics, continue high-dose Rocephin and vancomycin ID service is following Monitor clinical course closely Continue gentle hydration Further recommendations pending plan of care as per clinical response of the patient Patient not ready for weaning to come off of respirator We'll start to tube feed Time with Patient: Greater than 30
[2019-06-22] MEDS: AZITHROMYCIN 500 MG in SODIUM CHLORIDE 0.9% 250 ML IVPB SCH (16:09)
[2019-06-22] MEDS: PIPERACILLIN-TAZOBACTAM 3.375 GM in SODIUM CHLORIDE 0.9% 100 ML IVPB SCH (17:11)
[2019-06-22 17:12] LABS: Glucose,Whole Blood 156 mg/dL (75-99)
--- NOTE | 2019-06-22 17:56 | PN ---
PROGRESS NOTE DATE OF SERVICE: 06/22/2019 This 54-year-old gentleman who was admitted with COPD acute exacerbation also had bronchopneumonia and acute hypoxic respiratory failure. Also, patient intubated and mechanically ventilated at this time. The patient is seen by Infectious Disease and Pulmonary. The patient is on 5 of PEEP at this time and as well as tidal volume 550% O2, saturating well. Sputum culture showed gram-negative bacilli. The most recent chest x-ray which was reviewed personally by me today showed evidence of bilateral opacities. The patient is being closely monitored at this time. PAST MEDICAL HISTORY: Reviewed. REVIEW OF SYSTEMS: Review of system could not be taken, the patient is mechanically intubated and sedated. CURRENT MEDICATIONS: 1. [place] 7.5 mg q.6h p.r.n. 2. Ventolin 2.5 q.i.d. 3. DuoNeb q.i.d. and p.r.n. 4. Cordarone 200 mg p.o. daily. 5. Lipitor 10 mg q.h.s. 6. Zithromax 500 mg IV daily. 7. Pulmicort 1 mg b.i.d. 8. Rocephin 2 g IV daily. 9. Peridex 15 mL b.i.d. 10.Vitamin D2 50,000 Wednesday, Wednesday, Wednesday. 11.Perforomist 20 mg b.i.d. 12.Lasix. 13.Zestril. 14.The rest of medications noted also reviewed. PHYSICAL EXAM: Patient is mechanically sedated. Pulse 84, blood pressure 106/65, respiration 21, temp 99.1, pulse ox 100% on 40% FiO2. HEENT: Conjunctivae normal. Oral mucosa moist. NECK: No jugular venous distention. No lymph node enlargement. CARDIOVASCULAR: S1, S2. RESPIRATORY: Diminished breath sounds at the bases. Bilateral scattered rhonchi and crackles. ABDOMEN: Soft, nontender. No mass palpable. LEGS: No edema, no swelling. NERVOUS SYSTEM: Diffusely weak. LABS: WBC 4, hemoglobin 10.6 and platelets 96. Sodium 139, potassium 3.4, glucose 211, calcium is 7.9. ASSESSMENT: 1. Chronic obstructive pulmonary disease acute exacerbation with bilateral bronchopneumonia with severe hypoxic respiratory failure, severe sepsis present on admission, on mechanical ventilation. 2. Gram-negative bacilli grown from the sputum. 3. Change in mental status, metabolic encephalopathy, multifactorial. 4. High creatinine with chronic kidney disease stage 3 with possible acute on chronic kidney disease on top of it, possible acute tubular necrosis. 5. Thrombocytopenia. 6. History of paroxysmal atrial fibrillation. 7. History of congestive heart failure with chronic systolic dysfunction, ejection fraction 30-35%. 8. History of chronic obstructive pulmonary disease. 9. Hypertension. 10.History of myocardial infarction. 11.History of pneumonia. 12.History of pulmonary embolism. 13.History of syncope. 14.History of hypothyroidism. 15.History of Graves disease. 16.History of squamous cell skin cancer. 17.History of fall and pneumothorax and hemothorax. 18.History of MRSA. 19.History of adenoidectomy. 20.History of cholecystectomy. 21.History of cardiac ablation for atrial flutter. 22.History of anxiety. 23.History of continued ongoing nicotine dependence. 24.FULL CODE. RECOMMENDATIONS AND DISCUSSION: I recommend to continue current medication, continue symptomatic treatment, continue the bronchodilators, continue the antibiotic. Closely follow with Infectious Disease and Pulmonary. Currently, the patient is on vancomycin and Rocephin. We will continue to monitor. Guarded prognosis because of multiple complex medical issues. Further recommendations to follow. Continue rest of the medications. DVT prophylaxis. Further weaning attempts by Dr. David. See orders for details. Further recommendations to follow. MMODL / IJN: [id number] /
[2019-06-22] MEDS: QUEtiapine 100 MG TAB PO SCH (19:44)
[2019-06-22] MEDS: ATORVASTATIN 10 MG TAB PO SCH (19:44)
[2019-06-22] MEDS: MONTELUKAST 10 MG TAB PO SCH (19:44)
--- NOTE | 2019-06-22 20:56 | PN ---
PROGRESS NOTE DATE OF SERVICE: 06/22/2019 REASON FOR FOLLOWUP: Sepsis pneumonia. INTERVAL HISTORY: The patient is currently afebrile. The patient is hemodynamically stable not requiring any pressor support. The patient is currently sedated on the vent. FiO2 stable is and no diarrhea has been reported by the nursing staff. PHYSICAL EXAMINATION: Blood pressure 125/75 with a pulse of 89, temperature 99.7, he is 97% on 40% FiO2. General description is a middle-aged male lying in bed in no distress. Respiratory system: Unlabored breathing. Decreased breath sounds at the bases. No wheeze. Heart S1, S2. Regular rate and rhythm. Abdomen soft, no tenderness. LABS: Hemoglobin is 10.3, white count 4.0, BUN of 33, creatinine 1.18; showing a gram- negative bacilli. DIAGNOSTIC IMPRESSION AND PLAN: Patient with acute respiratory failure which is likely multifactorial in this patient who did have a component of pneumonia. Sputum now showing gram-negative bacilli. Antibiotic will be adjusted to Zosyn 3.75 g q.8 hours. Discontinue the Zithromax and Rocephin and vancomycin and we will monitor clinical course closely. Clinical suspicion for underlying at this point anyway. MMODL / IJN: [id number] /
[2019-06-22 21:52] LABS: Glucose,Whole Blood 196 mg/dL (75-99)
[2019-06-22] MEDS: IPRATROPIUM-ALBUTEROL 3 ML NEB INHALATION PRN (23:53)
[2019-06-23] MEDS: PIPERACILLIN-TAZOBACTAM 3.375 GM in SODIUM CHLORIDE 0.9% 100 ML IVPB SCH ×3 (00:39→16:13)
[2019-06-23] MEDS: methylPREDNISolone SOD SUCCI 125 MG/2 ML VIAL IV SCH ×4 (00:39→17:22)
[2019-06-23] MEDS: SODIUM CHLORIDE 0.9% 1,000 ML IV SCH ×3 (00:40→16:14)
[2019-06-23] MEDS: PROPOFOL 1,000 MG in EMPTY BAG 1 BAG IV SCH ×7 (01:09→21:24)
[2019-06-23] MEDS: LORazepam 2 MG/ML INJ IV PRN ×3 (01:12→16:49)
[2019-06-23] MEDS: CISATRACURIUM 200 MG in SODIUM CHLORIDE 0.9% 180 ML IV SCH (02:53)
[2019-06-23] MEDS: NOREPINEPHRINE 4 MG in SODIUM CHLORIDE 0.9% 250 ML IV SCH ×2 (02:53→21:16)
[2019-06-23] MEDS: IPRATROPIUM-ALBUTEROL 3 ML NEB INHALATION PRN ×2 (03:21→23:28)
[2019-06-23 05:18] LABS: ABG Base Excess -5.5 mmol/L; ABG HCO3 20 mmol/L (21-25); ABG Oxygen Saturation 96.9 % (94-97); ABG PCO2 33 mmHg (35-45); ABG PH 7.38 (7.35-7.45); ABG PO2 87 mmHg (83-108); ABG TCO2 21 mmol/L (19-24)
[2019-06-23 06:25] LABS: Glucose,Whole Blood 203 mg/dL (75-99)
[2019-06-23 06:38] LABS: Potassium 3.2 mmol/L (3.5-5.1)
[2019-06-23] MEDS: INSULIN ASPART (NovoLOG) 100 UNIT/ML VIAL SQ SCH ×3 (06:40→17:31)
[2019-06-23 06:46] LABS: Basophils % (A) 0 %; Eosinophils % (A) 0 %; HCT 29.1 % (39.0-53.0); HGB 9.7 gm/dL (13.0-17.5); Hypochromasia Slight; Lymphocytes # (A) 0.1 k/uL (1.0-4.8); Lymphocytes % (A) 3 %; MCH 32.3 pg (25.0-35.0); MCHC 33.3 g/dL (31.0-37.0); MCV 96.9 fL (80.0-100.0); Mean Platelet Volume 7.8; Monocytes # (A) 0.2 k/uL (0-1.0); Monocytes % (A) 5 %; Neutrophils % (A) 90 %; RDW 14.2 % (11.5-15.5); WBC 3.4 k/uL (3.8-10.6)
[2019-06-23 06:51] LABS: Platelet Count 93 k/uL (150-450)
--- NOTE | 2019-06-23 07:00 | XR ---
EXAMINATION TYPE: XR chest 1V portable DATE OF EXAM: 06/23/2019 CLINICAL HISTORY: Difficulty breathing progress study. TECHNIQUE: Single AP portable upright view of the chest is obtained. COMPARISON: Chest x-ray from one day earlier and older studies. FINDINGS: An endotracheal tube and orogastric tube are stable in appearance. Multiple old right side d rib fractures redemonstrated. There is chronic parenchymal change with bibasilar acute infiltrate a telectasis and small right pleural effusion. Cardiac silhouette size remains enlarged. IMPRESSION: Overall stable findings, cardiomegaly and chronic changes with small right pleural effu gladys and right greater than left bibasilar acute infiltrate and/or atelectasis are all redemonstrated .
[2019-06-23] MEDS: FORMOTEROL FUMARATE 20 MCG/2 ML NEBU INHALATION SCH ×2 (07:18→19:09)
[2019-06-23] MEDS: BUDESONIDE 1 MG/2 ML NEBU INHALATION SCH ×2 (07:18→19:09)
[2019-06-23] MEDS: IPRATROPIUM-ALBUTEROL 3 ML NEB INHALATION SCH ×4 (07:18→19:09)
[2019-06-23] MEDS ORDERED: POTASSIUM BICARBONATE/CIT AC 20 MEQ TABLET.EFF NG-TUBE SCH (08:00)
[2019-06-23] MEDS: PANTOPRAZOLE 40 MG/10 ML VIAL IVP SCH (09:27)
[2019-06-23] MEDS: CHLORHEXIDINE GLUCONATE 15 ML CUP MUCOUS MEM SCH ×2 (09:27→21:15)
[2019-06-23] MEDS: POLYETHYLENE GLYCOL 3350 17 GM POWD.PACK PO SCH (09:27)
[2019-06-23] MEDS: LISINOPRIL 5 MG TAB PO SCH (09:27)
[2019-06-23] MEDS: FUROSEMIDE 10 MG/ML 4 ML VIAL IV SCH (09:27)
[2019-06-23] MEDS: ERGOCALCIFEROL 50,000 UNIT CAP PO SCH (09:28)
[2019-06-23] MEDS: NICOTINE 14MG/24HR PATCH TRANSDERM SCH (09:28)
[2019-06-23] MEDS: POTASSIUM BICARBONATE/CIT AC 20 MEQ TABLET.EFF NG-TUBE SCH ×2 (09:28→10:41)
[2019-06-23] MEDS: AMIODARONE 200 MG TAB PO SCH (09:29)
[2019-06-23] MEDS: PARoxetine 20 MG TAB PO SCH (09:29)
[2019-06-23] MEDS: METOPROLOL TARTRATE 50 MG TAB PO SCH ×2 (09:29→21:16)
[2019-06-23] MEDS: RIVAROXABAN 20 MG TAB PO SCH (09:51)
--- NOTE | 2019-06-23 11:04 | CDI ---
Documentation Clarification Form Date: 06/23/2019 10:56:57 AM From: Mariajose Valadez RN, CCDS Admit Date: 06/20/2019 09:56:00 PM Patient Name: Stone Law Visit Number: [id number] ATTENTION: The Clinical Documentation Specialists (CDI) and [facility] Coding Staff appreciate your assistance in clarifying documentation. Please respond to the clarification below the line at the bottom and electronically sign. The CDI & [facility] Coding staff will review the response and follow-up if needed. Please note: Queries are made part of the Legal Health Record. If you have any questions, please contact the author of this message via ITS. Dr. Pritesh Duron declining Hgb and Hct have been noted and lacks specificity to accurately reflect your patients severity of condition and clarification is needed. History/Risk Factors: Atrial Fib, CHF, COPD, PE, Squamous cell ca Clinical indicators: Hemoglobin:13/11.4/10.6/9.7 Hematocrit: 39.7/34.5/32.5/29.1 Treatment: Monitoring labs 1.25 L IVF Bolus followed by 100cc/hr In order to capture the severity of condition, please clarify the clinical significance of the declining Hgb and Hct and etiology if known: Acute blood loss anemia Acute on chronic blood loss anemia Chronic blood loss anemia Iron deficiency anemia Drug induced anemia Anemia due to malignancy Nutritional anemia Anemia of chronic kidney disease Unable to determine Other, please specify (Last Revision: March 2017) Unable to determine MTDD
[2019-06-23] MEDS ORDERED: VANCOMYCIN TROUGH DUE 1 EACH MISC MISCELLANE ONE (12:00)
[2019-06-23 12:09] LABS: Glucose,Whole Blood 224 mg/dL (75-99)
[2019-06-23] MEDS: MULTIVITAMINS, THERA 1 EACH TAB PO SCH (12:13)
--- NOTE | 2019-06-23 14:34 | P.PN ---
Subjective Progress Note Date: 06/23/19 Principal diagnosis: Acute hypoxic and hypercapnic respiratory failure Acute COPD exacerbation Purulent tracheobronchitis Cardiomyopathy nonischemic baseline ejection fraction 35%, chronic systolic heart failure Chronic atrial flutter fibrillation History of fall with multiple rib fracture pneumothorax History of extensive smoking and nicotine use 06/23/2019, patient seen eval examined during the rounds patient is off of vasopressors off of the medical paralysis however remains on the propofol 70 mics, patient is deeply sedated remains on assist control rate of 16 tidal volume of 505 of PEEP and FiO2 down to 40%, chest x-ray reviewed overall remains stable patient is being treated for bilateral pneumonia, tomorrow we'll taper down the sedation and see if a CPAP of 5 trial with pressure support can be done continued to feed for now repeat labs and x-ray tomorrow 06/22/2019, patient seen eval reexamined during the rounds, Nimbex drip have been tapered and DC'd, patient remains on full ventilator support, fall was attempted to wean down but patient becomes anxious and agitated he does intermittently open eyes, he remains on assist control mode rate of 16 and tidal volume of 500+5 of PEEP and 50% oxygen, white cell count is 4000 with stable hemoglobin of 710.6, arterial blood gases on above vent setting include pH is 7.32 pCO2 30 and pO2 109 FiO2 subsequently decreased to 40%, order have been placed restart the tube feed patient remains on vancomycin and high-dose Rocephin, patient has been evaluated by infectious disease services the pretest probability of the meningitis is low but he remains on emperic therapy, will wean down the propofol further and reassess the mental status and try to wean as tolerated, chest x-ray showed right lower lobe pneumonia and a small effusion 06/21/2019, patient seen eval reexamined during the rounds events from earlier this morning noted patient developed respiratory distress and severe metabolic acidosis likely related to acute COPD exacerbation and severe sepsis from unknown source, patient was intubated due to severe agitation patient has been started on medical paralysis we'll start tapering it down now currently patient is 4 out of 4 will cut it down to half and gradually taper and DC it continue p ropofol for sedation, supplemental it with Ativan and morphine, chest x-ray from earlier this morning reviewed prominent interstitium has been noted, lacking lactic acid noted to have improved, patient had been aggressively resuscitated with crystalloids, blood pressure is normal the levo fed is being titrated down currently he is on 2 mics, when setting includes assist control rate of 16 and tidal volume of 500 PEEP of 5 and FiO2 is down to 50%, 10 cultures have been done, flu studies noted to be negative, Rocephin is 1 g along with Zithromax we will increase the dose of Rocephin to 2 g and add vancomycin as well for now, prior to intubation patient was complaining of stiffness in the upper extremity head and neck area, spinal tap couldn't be performed as patient is on blood thinners, likelihood of meningitis however is low, labs reviewed medications reviewed critical care time 35 minutes This is a 54-year-old male who was seen evaluated examined in the emergency department this morning he has been not feeling well for 2 weeks of progressive cough shortness of breath associated with purulent sputum production came into emergency department for further evaluation chest x-ray has been negative for any acute process, overall a poor historian he has a long-standing history of cardiovascular problems including chronic atrial fibrillation and flutter history of the chronic systolic heart failure baseline ejection fraction of 30% it is thought to be nonischemic cardiomyopathy, patient has a history of Graves' disease pulmonary embolism thyroid disorder history of falls with the pneumothorax and hemothorax and multiple refracture hospitalized back in 2017 on arrival he was noted to have a low-grade fever now resolved, he is being treated with broad-spectrum antibiotics, bronchodilators as well as IV steroids Objective - Vital Signs Vital signs: Vital Signs Temp 98.4 F 06/23/19 12:00 Pulse 92 06/23/19 13:00 Resp 20 06/23/19 13:00 BP 102/60 06/23/19 13:00 Pulse Ox 93 L 06/23/19 13:00 Intake & Output 06/22/19 06/23/19 06/23/19 18:59 06:59 18:59 Intake Total 9073.793 4972 1092.313 Output Total 1330 1160 895 Balance 170.220 540 197.313 Weight 93 kg Intake: IV 1250 1300 600 Sodium Chloride 0.9% 1, 1000 1300 600 000 ml @ 100 mls/hr IV . Q10H [facility] Rx#:[id number] Vancomycin 1,500 mg In 250 Sodium Chloride 0.9% 250 ml @ 125 mls/hr IVPB Q16H [facility] Rx#:[id number] Intake, IV Titration 250.220 400 352.313 Amount Azithromycin 500 mg In 100 Sodium Chloride 0.9% 250 ml @ 250 mls/hr IVPB Q24H [facility] Rx#:[id number] Piperacillin-Tazobactam 3 100 .375 gm In Sodium Chloride 0.9% 100 ml @ 25 mls/hr IVPB Q8HR [facility] Rx# :[id number] Propofol 1,000 mg In 250.220 300 252.313 Empty Bag 1 bag @ Titrate IV .Q0M [facility] Rx#: [id number] Tube Feeding 140 Output: Urine 1330 1060 895 Stool 100 Other: Voiding Method Indwelling Catheter Indwelling Catheter Indwelling Catheter ABP, PAP, CO, CI - Last Documented Arterial Blood Pressure 106/51 - Exam - Constitutional General appearance: average body habitus, stable currently with medical paralysis and propofol - EENT Eyes: anicteric sclerae, EOMI, PERRLA, poor dentition, normal appearance Ears: bilateral: normal - Neck Neck: normal ROM Carotids: bilateral: upstroke normal Thyroid: bilateral: normal size - Respiratory Respiratory: bilateral: diminished, wheezing, negative: CTA, - Cardiovascular Rhythm: regular Heart sounds: normal: S1, S2 - Gastrointestinal General gastrointestinal: normal bowel sounds, soft - Integumentary Integumentary: normal turgor - Neurologic Cannot assess being on ventilator - Musculoskeletal Cannot assess being on ventilator - Psychiatric Psychiatric: Cannot assess being on ventilator - Labs CBC & Chem 7: 06/23/19 05:45 06/23/19 05:45 Labs: Abnormal Lab Results - Last 24 Hours (Table) 06/22/19 06/22/19 06/23/19 Range/Units 17:11 21:50 05:14 WBC (3.8-10.6) k/uL RBC (4.30-5.90) m/uL Hgb (13.0-17.5) gm/dL Hct (39.0-53.0) % Plt Count (150-450) k/uL Lymphocytes # (1.0-4.8) k/uL ABG pCO2 33 L (35-45) mmHg ABG HCO3 20 L (21-25) mmol/L Potassium (3.5-5.1) mmol/L Chloride (98-107) mmol/L Carbon Dioxide (22-30) mmol/L BUN (9-20) mg/dL Glucose (74-99) mg/dL POC Glucose (mg/dL) 156 H 196 H (75-99) mg/dL Calcium (8.4-10.2) mg/dL 06/23/19 06/23/19 06/23/19 Range/Units 05:45 05:45 06:22 WBC 3.4 L (3.8-10.6) k/uL RBC 3.00 L (4.30-5.90) m/uL Hgb 9.7 L (13.0-17.5) gm/dL Hct 29.1 L (39.0-53.0) % Plt Count 93 L (150-450) k/uL Lymphocytes # 0.1 L (1.0-4.8) k/uL ABG pCO2 (35-45) mmHg ABG HCO3 (21-25) mmol/L Potassium 3.2 L (3.5-5.1) mmol/L Chloride 115 H (98-107) mmol/L Carbon Dioxide 19 L (22-30) mmol/L BUN 30 H (9-20) mg/dL Glucose 212 H (74-99) mg/dL POC Glucose (mg/dL) 203 H (75-99) mg/dL Calcium 8.0 L (8.4-10.2) mg/dL 06/23/19 Range/Units 12:07 WBC (3.8-10.6) k/uL RBC (4.30-5.90) m/uL Hgb (13.0-17.5) gm/dL Hct (39.0-53.0) % Plt Count (150-450) k/uL Lymphocytes # (1.0-4.8) k/uL ABG pCO2 (35-45) mmHg ABG HCO3 (21-25) mmol/L Potassium (3.5-5.1) mmol/L Chloride (98-107) mmol/L Carbon Dioxide (22-30) mmol/L BUN (9-20) mg/dL Glucose (74-99) mg/dL POC Glucose (mg/dL) 224 H (75-99) mg/dL Calcium (8.4-10.2) mg/dL Microbiology - Last 24 Hours (Table) 06/20/19 22:09 Blood Culture - Preliminary Blood No Growth after 48 hours 06/20/19 18:30 Blood Culture - Preliminary Blood No Growth after 48 hours 06/21/19 02:25 Gram Stain - Preliminary Sputum Sputum Culture - Preliminary Gram Neg Bacilli Assessment and Plan Assessment: Bilateral lower lobe pneumonia Small right-sided pleural effusion Acute hypoxic and hypercapnic respiratory failure Severe sepsis from unknown source Acute COPD exacerbation Purulent tracheobronchitis Cardiomyopathy nonischemic baseline ejection fraction 35%, chronic systolic heart failure Chronic atrial flutter fibrillation on Xarelto History of fall with multiple rib fracture pneumothorax History of extensive smoking and nicotine use Plan: Overall plan includes Taper sedation, get rid of propofol as tolerated, will do CPAP and pressure support trial tomorrow anticoagulation to be reinitiated Breathing treatment IV steroids Broad-spectrum antibiotics, antibiotics have been switched to IV Zosyn for aspiration pneumonia Monitor clinical course closely Continue gentle hydration Further recommendations pending plan of care as per clinical response of the patient Continue tube feed Time with Patient: Greater than 30
[2019-06-23 15:56] LABS: Glucose,Whole Blood 195 mg/dL (75-99)
--- NOTE | 2019-06-23 17:00 | P.PN ---
Subjective Progress Note Date: 06/23/19 06/23/2019 patient seen eval examined during the rounds patient is off of vasopressors off of the medical paralysis however remains on the propofol 70 mics, patient is deeply sedated remains on assist control rate of 16 tidal volume of 505 of PEEP and FiO2 down to 40, chest x-ray reviewed overall remains stable patient is being treated for bilateral pneumonia, tomorrow patient will be tapered down on sedation and see if a CPAP of 5 trial with pressure support can be done; patient remains on ventilatory support with pulmonary/intensive care following; we will follow the patient along with you Objective - Vital Signs Vital signs: Vital Signs Temp 98.9 F 06/23/19 08:00 Pulse 106 H 06/23/19 10:00 Resp 31 H 06/23/19 10:00 BP 133/80 06/23/19 10:00 Pulse Ox 95 06/23/19 10:00 Intake & Output 06/22/19 06/23/19 06/23/19 18:59 06:59 18:59 Intake Total 2570.845 9488 532.313 Output Total 1330 1160 470 Balance 170.220 540 62.313 Weight 93 kg Intake: IV 1250 1300 300 Sodium Chloride 0.9% 1, 1000 1300 300 000 ml @ 100 mls/hr IV . Q10H [facility] Rx#:[id number] Vancomycin 1,500 mg In 250 Sodium Chloride 0.9% 250 ml @ 125 mls/hr IVPB Q16H [facility] Rx#:[id number] Intake, IV Titration 250.220 400 152.313 Amount Piperacillin-Tazobactam 3 100 .375 gm In Sodium Chloride 0.9% 100 ml @ 25 mls/hr IVPB Q8HR [facility] Rx# :[id number] Propofol 1,000 mg In 250.220 300 152.313 Empty Bag 1 bag @ Titrate IV .Q0M [facility] Rx#: [id number] Tube Feeding 80 Output: Urine 1330 1060 470 Stool 100 Other: Voiding Method Indwelling Catheter Indwelling Catheter Indwelling Catheter ABP, PAP, CO, CI - Last Documented Arterial Blood Pressure 157/64 - Exam GENERAL: Patient remains intubated and sedated. HEENT: Pupils are round and equally reacting to light. EOMI. No scleral icterus. No conjunctival pallor. Normocephalic, atraumatic. No pharyngeal erythema. No thyromegaly. CARDIOVASCULAR: S1 and S2 present. No murmurs, rubs, or gallops. PULMONARY: Chest is clear to auscultation, no wheezing or crackles. ABDOMEN: Soft, nontender, nondistended, normoactive bowel sounds. No palpable organomegaly. MUSCULOSKELETAL: No joint swelling or deformity. EXTREMITIES: No cyanosis, clubbing, or pedal edema. NEUROLOGICAL: Patient remains sedated. SKIN: No rashes. - Labs CBC & Chem 7: 06/23/19 05:45 06/23/19 05:45 Labs: Abnormal Lab Results - Last 24 Hours (Table) 06/22/19 06/22/19 06/22/19 Range/Units 12:11 17:11 21:50 WBC (3.8-10.6) k/uL RBC (4.30-5.90) m/uL Hgb (13.0-17.5) gm/dL Hct (39.0-53.0) % Plt Count (150-450) k/uL Lymphocytes # (1.0-4.8) k/uL ABG pCO2 (35-45) mmHg ABG HCO3 (21-25) mmol/L Potassium (3.5-5.1) mmol/L Chloride (98-107) mmol/L Carbon Dioxide (22-30) mmol/L BUN (9-20) mg/dL Glucose (74-99) mg/dL POC Glucose (mg/dL) 148 H 156 H 196 H (75-99) mg/dL Calcium (8.4-10.2) mg/dL 06/23/19 06/23/19 06/23/19 Range/Units 05:14 05:45 05:45 WBC 3.4 L (3.8-10.6) k/uL RBC 3.00 L (4.30-5.90) m/uL Hgb 9.7 L (13.0-17.5) gm/dL Hct 29.1 L (39.0-53.0) % Plt Count 93 L (150-450) k/uL Lymphocytes # 0.1 L (1.0-4.8) k/uL ABG pCO2 33 L (35-45) mmHg ABG HCO3 20 L (21-25) mmol/L Potassium 3.2 L (3.5-5.1) mmol/L Chloride 115 H (98-107) mmol/L Carbon Dioxide 19 L (22-30) mmol/L BUN 30 H (9-20) mg/dL Glucose 212 H (74-99) mg/dL POC Glucose (mg/dL) (75-99) mg/dL Calcium 8.0 L (8.4-10.2) mg/dL 06/23/19 Range/Units 06:22 WBC (3.8-10.6) k/uL RBC (4.30-5.90) m/uL Hgb (13.0-17.5) gm/dL Hct (39.0-53.0) % Plt Count (150-450) k/uL Lymphocytes # (1.0-4.8) k/uL ABG pCO2 (35-45) mmHg ABG HCO3 (21-25) mmol/L Potassium (3.5-5.1) mmol/L Chloride (98-107) mmol/L Carbon Dioxide (22-30) mmol/L BUN (9-20) mg/dL Glucose (74-99) mg/dL POC Glucose (mg/dL) 203 H (75-99) mg/dL Calcium (8.4-10.2) mg/dL Microbiology - Last 24 Hours (Table) 06/20/19 22:09 Blood Culture - Preliminary Blood No Growth after 48 hours 06/20/19 18:30 Blood Culture - Preliminary Blood No Growth after 48 hours 06/21/19 02:25 Gram Stain - Preliminary Sputum Sputum Culture - Preliminary Gram Neg Bacilli Assessment and Plan Assessment: 1. Bilateral lower lobe pneumonia 2. Small right-sided pleural effusion 3. Acute hypoxic and hypercapnic respiratory failure 4. Severe sepsis from unknown source 5. Acute COPD exacerbation 6. Purulent tracheobronchitis 7. Cardiomyopathy nonischemic baseline ejection fraction 35%, chronic systolic heart failure 8. Chronic atrial flutter fibrillation on Xarelto 9. History of fall with multiple rib fracture pneumothorax Patient remains in ICU; remains intubated; critical care is following and planning to taper sedation with a trial of CPAP and pressure support tomorrow morning; patient has been started on anticoagulation; remains on bronchodilator nebulizer treatments and IV steroids in form of Solu-Medrol 60 mg every 8 hours; continue with broad-spectrum antibiotics in form of IV Zosyn to cover aspiration pneumonia DVT prophylaxis CODE STATUS; full code Time with Patient: Greater than 30
[2019-06-23 17:22] LABS: Glucose,Whole Blood 214 mg/dL (75-99)
--- NOTE | 2019-06-23 18:17 | PN ---
PROGRESS NOTE DATE OF SERVICE: 06/23/2019 REASON FOR FOLLOWUP: Gram-negative pneumonia. INTERVAL HISTORY: The patient is currently afebrile. Patient is hemodynamically stable, not requiring pressor support. FiO2 is currently stable and FiO2 is currently 40%. No diarrhea has been reported. Patient remains to be sedated on the vent and unable to provide any history. PHYSICAL EXAMINATION: Blood pressure 113/56, pulse of 100. Temperature 98. She is 90% on 40% FiO2. General description is a middle-aged male lying in bed in no distress. Respiratory system: Unlabored breathing. Decreased breath sounds in the bases. No wheeze. Heart S1, S2. Regular rate and rhythm. Abdomen soft, no tenderness. LABS: Hemoglobin 9.5, hematocrit of 3.4, BUN of 30, creatinine is 1.12. Sputum with gram- negative, blood culture has been negative. DIAGNOSTIC IMPRESSION AND PLAN: Patient with sepsis, source is gram-negative pneumonia. The patient is currently covered on Zosyn to continue adjusting antibiotics further based on the culture report. Monitor clinical course and monitor his clinical course closely. MMODL / IJN: [id number] /
[2019-06-23] MEDS: MONTELUKAST 10 MG TAB PO SCH (21:15)
[2019-06-23] MEDS: ACETAMINOPHEN TAB 325 MG TAB PO PRN (21:15)
[2019-06-23] MEDS: ATORVASTATIN 10 MG TAB PO SCH (21:16)
[2019-06-23] MEDS: QUEtiapine 100 MG TAB PO SCH (21:16)
[2019-06-24 00:15] LABS: Glucose,Whole Blood 240 mg/dL (75-99)
[2019-06-24] MEDS: PROPOFOL 1,000 MG in EMPTY BAG 1 BAG IV SCH ×7 (00:30→22:34)
[2019-06-24] MEDS ORDERED: diphenhydrAMINE 50 MG/ML 1 ML VIAL IVP SCH (00:30)
[2019-06-24] MEDS: PIPERACILLIN-TAZOBACTAM 3.375 GM in SODIUM CHLORIDE 0.9% 100 ML IVPB SCH ×2 (00:31→07:59)
[2019-06-24] MEDS: methylPREDNISolone SOD SUCCI 125 MG/2 ML VIAL IV SCH ×5 (00:31→23:30)
[2019-06-24] MEDS: INSULIN ASPART (NovoLOG) 100 UNIT/ML VIAL SQ SCH ×5 (00:32→23:40)
[2019-06-24] MEDS: POTASSIUM BICARBONATE/CIT AC 20 MEQ TABLET.EFF NG-TUBE SCH ×4 (00:53→22:37)
[2019-06-24] MEDS: diphenhydrAMINE 50 MG/ML 1 ML VIAL IVP SCH ×4 (00:59→23:29)
[2019-06-24] MEDS: SODIUM CHLORIDE 0.9% 1,000 ML IV SCH (02:18)
[2019-06-24] MEDS: CISATRACURIUM 200 MG in SODIUM CHLORIDE 0.9% 180 ML IV SCH (03:25)
[2019-06-24] MEDS: IPRATROPIUM-ALBUTEROL 3 ML NEB INHALATION PRN ×2 (03:31→23:15)
[2019-06-24 04:39] LABS: ABG HCO3 24 mmol/L (21-25); ABG PCO2 44 mmHg (35-45); ABG PH 7.34 (7.35-7.45); ABG PO2 66 mmHg (83-108); ABG TCO2 25 mmol/L (19-24); Allen Test Performed? Yes
[2019-06-24 04:56] LABS: Glucose,Whole Blood 270 mg/dL (75-99)
[2019-06-24 05:04] LABS: HCT 29.7 % (39.0-53.0); HGB 9.7 gm/dL (13.0-17.5); Hypochromasia Slight; MCH 32.1 pg (25.0-35.0); MCHC 32.5 g/dL (31.0-37.0); MCV 98.7 fL (80.0-100.0); Mean Platelet Volume 9.3; RBC 3.01 m/uL (4.30-5.90); RDW 14.3 % (11.5-15.5); WBC 4.1 k/uL (3.8-10.6)
[2019-06-24 05:24] LABS: Calcium 8.1 mg/dL (8.4-10.2); Potassium 3.8 mmol/L (3.5-5.1)
[2019-06-24 05:43] LABS: Platelet Count 85 k/uL (150-450)
--- NOTE | 2019-06-24 06:10 | XR ---
EXAMINATION TYPE: XR chest 1V portable DATE OF EXAM: 06/24/2019 HISTORY: Tube placement. REFERENCE: Previous study dated 06/23/2019. FINDINGS: The patient is ET tube and NG tube remain in place, unchanged in appearance. There is bibas ilar airspace disease. The heart is enlarged. There are small, bilateral effusions. IMPRESSION: NO SIGNIFICANT INTERVAL CHANGE IN APPEARANCE OF THE CHEST.
[2019-06-24] MEDS: IPRATROPIUM-ALBUTEROL 3 ML NEB INHALATION SCH ×4 (07:31→19:16)
[2019-06-24] MEDS: BUDESONIDE 1 MG/2 ML NEBU INHALATION SCH ×2 (07:31→19:15)
[2019-06-24] MEDS: FORMOTEROL FUMARATE 20 MCG/2 ML NEBU INHALATION SCH ×2 (07:31→19:15)
[2019-06-24] MEDS: CHLORHEXIDINE GLUCONATE 15 ML CUP MUCOUS MEM SCH ×2 (08:37→20:20)
[2019-06-24] MEDS: AMIODARONE 200 MG TAB PO SCH (08:37)
[2019-06-24] MEDS: PANTOPRAZOLE 40 MG/10 ML VIAL IVP SCH (08:37)
[2019-06-24] MEDS: FUROSEMIDE 10 MG/ML 4 ML VIAL IV SCH (08:37)
[2019-06-24] MEDS: PARoxetine 20 MG TAB PO SCH (08:38)
[2019-06-24] MEDS: METOPROLOL TARTRATE 50 MG TAB PO SCH ×2 (08:38→20:20)
[2019-06-24] MEDS: LISINOPRIL 5 MG TAB PO SCH (08:38)
[2019-06-24] MEDS: NICOTINE 14MG/24HR PATCH TRANSDERM SCH (08:38)
[2019-06-24] MEDS: POLYETHYLENE GLYCOL 3350 17 GM POWD.PACK PO SCH (08:39)
[2019-06-24] MEDS: MORPHINE SULFATE 2 MG/ML SYRINGE IVP PRN ×2 (08:49→16:09)
[2019-06-24] MEDS ORDERED: POTASSIUM BICARBONATE/CIT AC 20 MEQ TABLET.EFF NG-TUBE SCH ×2 (09:00→16:00)
[2019-06-24] MEDS: RIVAROXABAN 20 MG TAB PO SCH (09:14)
[2019-06-24] MEDS: SODIUM CHLORIDE 0.45% 1,000 ML IV SCH (11:21)
[2019-06-24] MEDS: MULTIVITAMINS, THERA 1 EACH TAB PO SCH (11:30)
[2019-06-24 11:44] LABS: Glucose,Whole Blood 241 mg/dL (75-99)
[2019-06-24] MEDS: NOREPINEPHRINE 4 MG in SODIUM CHLORIDE 0.9% 250 ML IV SCH (12:10)
[2019-06-24] MEDS ORDERED: VANCOMYCIN IV PER PHARMACY 1 EACH MISC MISCELLANE PRN (12:31)
[2019-06-24] MEDS: AMPICILLIN-SULBACTAM 3 GM in SODIUM CHLORIDE 0.9% 100 ML IVPB SCH ×3 (13:49→23:30)
[2019-06-24] MEDS: VANCOMYCIN 1,500 MG in SODIUM CHLORIDE 0.9% 250 ML IVPB SCH (13:50)
--- NOTE | 2019-06-24 15:13 | P.PN ---
Subjective Progress Note Date: 06/24/19 Principal diagnosis: Acute hypoxic/hypercapnic respiratory failure 06/23/2019 patient seen eval examined during the rounds patient is off of vasopressors off of the medical paralysis however remains on the propofol 70 mics, patient is deeply sedated remains on assist control rate of 16 tidal volume of 505 of PEEP and FiO2 down to 40, chest x-ray reviewed overall remains stable patient is being treated for bilateral pneumonia, tomorrow patient will be tapered down on sedation and see if a CPAP of 5 trial with pressure support can be done; patient remains on ventilatory support with pulmonary/intensive care following; we will follow the patient along with you 06/24/2019 Patient is seen and evaluated in room at bedside; remains intubated; concerns about rash development last night upper chest and neck area; patient is started on IV Benadryl helping with slow resolution of rash; patient has been evaluated by ID and IV antibiotics have been changed to Unasyn 3 g IV every 6 hours; we will continue with IV Benadryl for another 3 doses and monitor patient closely Objective - Vital Signs Vital signs: Vital Signs Temp 100.4 F H 06/24/19 08:00 Pulse 85 06/24/19 10:00 Resp 23 06/24/19 10:00 BP 118/60 06/24/19 09:00 Pulse Ox 94 L 06/24/19 10:00 Intake & Output 06/23/19 06/24/19 06/24/19 18:59 06:59 18:59 Intake Total 0865.663 0740.760 710.000 Output Total 7338 039 3193 Balance 337.313 920.760 -370.000 Weight 93.3 kg Intake: IV 1100 1200 400 Sodium Chloride 0.9% 1, 1100 1200 400 000 ml @ 100 mls/hr IV . Q10H [facility] Rx#:[id number] Intake, IV Titration 452.313 385.760 100.000 Amount Piperacillin-Tazobactam 3 100 .375 gm In Sodium Chloride 0.9% 100 ml @ 25 mls/hr IVPB Q8HR [facility] Rx# :[id number] Propofol 1,000 mg In 352.313 385.760 100.000 Empty Bag 1 bag @ Titrate IV .Q0M [facility] Rx#: [id number] Tube Feeding 280 240 80 Other 90 130 Output: Urine 6823 256 4384 Other: Voiding Method Indwelling Catheter Indwelling Catheter Indwelling Catheter ABP, PAP, CO, CI - Last Documented Arterial Blood Pressure 112/48 - Exam GENERAL: Patient remains intubated and sedated. HEENT: Pupils are round and equally reacting to light. EOMI. No scleral icterus. No conjunctival pallor. Normocephalic, atraumatic. No pharyngeal erythema. No thyromegaly. CARDIOVASCULAR: S1 and S2 present. No murmurs, rubs, or gallops. PULMONARY: Chest is clear to auscultation, no wheezing or crackles. ABDOMEN: Soft, nontender, nondistended, normoactive bowel sounds. No palpable organomegaly. MUSCULOSKELETAL: No joint swelling or deformity. EXTREMITIES: No cyanosis, clubbing, or pedal edema. NEUROLOGICAL: Patient remains sedated. SKIN: No rashes. - Labs CBC & Chem 7: 06/24/19 04:50 06/24/19 04:50 Labs: Abnormal Lab Results - Last 24 Hours (Table) 06/23/19 06/23/19 06/23/19 Range/Units 12:07 15:54 17:20 RBC (4.30-5.90) m/uL Hgb (13.0-17.5) gm/dL Hct (39.0-53.0) % Plt Count (150-450) k/uL ABG pH (7.35-7.45) ABG pO2 (83-108) mmHg ABG Total CO2 (19-24) mmol/L ABG O2 Saturation (94-97) % Sodium (137-145) mmol/L Chloride (98-107) mmol/L BUN (9-20) mg/dL Glucose (74-99) mg/dL POC Glucose (mg/dL) 224 H 195 H 214 H (75-99) mg/dL Calcium (8.4-10.2) mg/dL 06/24/19 06/24/19 06/24/19 Range/Units 00:13 04:35 04:50 RBC 3.01 L (4.30-5.90) m/uL Hgb 9.7 L (13.0-17.5) gm/dL Hct 29.7 L (39.0-53.0) % Plt Count 85 L (150-450) k/uL ABG pH 7.34 L (7.35-7.45) ABG pO2 66 L (83-108) mmHg ABG Total CO2 25 H (19-24) mmol/L ABG O2 Saturation 92.0 L (94-97) % Sodium (137-145) mmol/L Chloride (98-107) mmol/L BUN (9-20) mg/dL Glucose (74-99) mg/dL POC Glucose (mg/dL) 240 H (75-99) mg/dL Calcium (8.4-10.2) mg/dL 06/24/19 06/24/19 Range/Units 04:50 04:54 RBC (4.30-5.90) m/uL Hgb (13.0-17.5) gm/dL Hct (39.0-53.0) % Plt Count (150-450) k/uL ABG pH (7.35-7.45) ABG pO2 (83-108) mmHg ABG Total CO2 (19-24) mmol/L ABG O2 Saturation (94-97) % Sodium 146 H (137-145) mmol/L Chloride 118 H (98-107) mmol/L BUN 34 H (9-20) mg/dL Glucose 255 H (74-99) mg/dL POC Glucose (mg/dL) 270 H (75-99) mg/dL Calcium 8.1 L (8.4-10.2) mg/dL Microbiology - Last 24 Hours (Table) 06/21/19 02:25 Gram Stain - Preliminary Sputum Sputum Culture - Preliminary Acinetobacter jessica/haemol Presumptive Staph aureus 06/20/19 22:09 Blood Culture - Preliminary Blood No Growth after 72 hours 06/20/19 18:30 Blood Culture - Preliminary Blood No Growth after 72 hours Assessment and Plan Assessment: 1. Bilateral lower lobe pneumonia 2. Small right-sided pleural effusion 3. Acute hypoxic and hypercapnic respiratory failure 4. Severe sepsis from unknown source 5. Acute COPD exacerbation 6. Purulent tracheobronchitis 7. Cardiomyopathy nonischemic baseline ejection fraction 35%, chronic systolic heart failure 8. Chronic atrial flutter fibrillation on Xarelto 9. History of fall with multiple rib fracture pneumothorax Patient remains in ICU; remains intubated; critical care is following and planning to taper sedation with a trial of CPAP and pressure support tomorrow morning; patient has been started on anticoagulation; remains on bronchodilator nebulizer treatments and IV steroids in form of Solu-Medrol 60 mg every 8 hours; continue with broad-spectrum antibiotics in form of IV Zosyn to cover aspiration pneumonia DVT prophylaxis CODE STATUS; full code
[2019-06-24] MEDS ORDERED: Potassium Replacement Protocol 1 EACH MISC MISCELLANE PRN (15:46)
--- NOTE | 2019-06-24 16:05 | P.PN ---
Subjective Progress Note Date: 06/24/19 (Critical care time 45 minutes) Principal diagnosis: Polymicrobial pneumonia associated with Acinetobacter and Staph Acute hypoxic and hypercapnic respiratory failure Acute COPD exacerbation Mild hyper natremia Fluid overload Cardiomyopathy nonischemic baseline ejection fraction 35%, chronic systolic heart failure Chronic atrial flutter fibrillation History of fall with multiple rib fracture pneumothorax History of extensive smoking and nicotine use 06/24/2019, patient seen and evaluated examined during the rounds labs reviewed medications reviewed patient came back positive for Acinetobacter and Staph in the sputum, he remains hemodynamically stable off of vasopressors, however he is positive almost 10-15 L, patient has a good response with Lasix given this mo rning we'll put on a daily basis also patient has mild hypernatremia S patient is tolerating tube feed will DC the extra IV fluids, we'll continue to titrate propofol down as tolerated plan to do weaning tomorrow, labs reviewed medications reviewed care plan discussed with the staff at length FiO2 is slightly increased to 60% and likely related to fluid overload 06/23/2019, patient seen eval examined during the rounds patient is off of vasopressors off of the medical paralysis however remains on the propofol 70 mics, patient is deeply sedated remains on assist control rate of 16 tidal volume of 505 of PEEP and FiO2 down to 40%, chest x-ray reviewed overall remains stable patient is being treated for bilateral pneumonia, tomorrow we'll taper down the sedation and see if a CPAP of 5 trial with pressure support can be done continued to feed for now repeat labs and x-ray tomorrow 06/22/2019, patient seen eval reexamined during the rounds, Nimbex drip have been tapered and DC'd, patient remains on full ventilator support, fall was attempted to wean down but patient becomes anxious and agitated he does intermittently open eyes, he remains on assist control mode rate of 16 and tidal volume of 500+5 of PEEP and 50% oxygen, white cell count is 4000 with stable hemoglobin of 710.6, arterial blood gases on above vent setting include pH is 7.32 pCO2 30 and pO2 109 FiO2 subsequently decreased to 40%, order have been placed restart the tube feed patient remains on vancomycin and high-dose Rocephin, patient has been evaluated by infectious disease services the pretest probability of the meningitis is low but he remains on emperic therapy, will wean down the propofol further and reassess the mental status and try to wean as tolerated, chest x-ray showed right lower lobe pneumonia and a small effusion 06/21/2019, patient seen eval reexamined during the rounds events from earlier this morning noted patient developed respiratory distress and severe metabolic acidosis likely related to acute COPD exacerbation and severe sepsis from unknown source, patient was intubated due to severe agitation patient has been started on medical paralysis we'll start tapering it down now currently patient is 4 out of 4 will cut it down to half and gradually taper and DC it continue propofol for sedation, supplemental it with Ativan and morphine, chest x-ray from earlier this morning reviewed prominent interstitium has been noted, lacking lactic acid noted to have improved, patient had been aggressively resuscitated with crystalloids, blood pressure is normal the levo fed is being titrated down currently he is on 2 mics, when setting includes assist control rate of 16 and tidal volume of 500 PEEP of 5 and FiO2 is down to 50%, 10 cultures have been done, flu studies noted to be negative, Rocephin is 1 g along with Zithromax we will increase the dose of Rocephin to 2 g and add vancomycin as well for now, prior to intubation patient was complaining of stiffness in the upper extremity head and neck area, spinal tap couldn't be performed as patient is on blood thinners, likelihood of meningitis however is low, labs reviewed medications reviewed critical care time 35 minutes This is a 54-year-old male who was seen evaluated examined in the emergency department this morning he has been not feeling well for 2 weeks of progressive cough shortness of breath associated with purulent sputum production came into emergency department for further evaluation chest x-ray has been negative for any acute process, overall a poor historian he has a long-standing history of cardiovascular problems including chronic atrial fibrillation and flutter history of the chronic systolic heart failure baseline ejection fraction of 30% it is thought to be nonischemic cardiomyopathy, patient has a history of Graves' disease pulmonary embolism thyroid disorder history of falls with the pneumothorax and hemothorax and multiple refracture hospitalized back in 2017 on arrival he was noted to have a low-grade fever now resolved, he is being treated with broad-spectrum antibiotics, bronchodilators as well as IV steroids Objective - Vital Signs Vital signs: Vital Signs Temp 100.6 F H 06/24/19 12:00 Pulse 85 01/11/20 15:38 Resp 17 06/24/19 15:00 BP 114/69 06/24/19 15:00 Pulse Ox 92 L 06/24/19 15:00 Intake & Output 06/23/19 06/24/19 06/24/19 18:59 06:59 18:59 Intake Total 2229.506 9459.760 1678.915 Output Total 0839 122 1227 Balance 337.313 920.760 -551.085 Weight 93.3 kg 92.76 kg Intake: IV 1100 1200 1150 Ampicillin-Sulbactam 3 gm 100 In Sodium Chloride 0.9% 100 ml @ 200 mls/hr IVPB Q6HR [facility] Rx#:[id number] Sodium Chloride 0.45% 1, 300 000 ml @ 75 mls/hr IV . [id number] [facility] Rx#:[id number] Sodium Chloride 0.9% 1, 1100 1200 500 000 ml @ 100 mls/hr IV . Q10H [facility] Rx#:[id number] Vancomycin 1,500 mg In 250 Sodium Chloride 0.9% 250 ml @ 125 mls/hr IVPB Q12H [facility] Rx#:[id number] Intake, IV Titration 452.313 385.760 188.915 Amount Piperacillin-Tazobactam 3 100 .375 gm In Sodium Chloride 0.9% 100 ml @ 25 mls/hr IVPB Q8HR [facility] Rx# :[id number] Propofol 1,000 mg In 352.313 385.760 188.915 Empty Bag 1 bag @ Titrate IV .Q0M [facility] Rx#: [id number] Tube Feeding 280 240 180 Other 90 160 Output: Urine 5778 879 0338 Other: Voiding Method Indwelling Catheter Indwelling Catheter Indwelling Catheter ABP, PAP, CO, CI - Last Documented Arterial Blood Pressure 135/58 - Exam - Constitutional General appearance: average body habitus, stable currently with medical paralysis and propofol - EENT Eyes: anicteric sclerae, EOMI, PERRLA, poor dentition, normal appearance Ears: bilateral: normal - Neck Neck: normal ROM Carotids: bilateral: upstroke normal Thyroid: bilateral: normal size - Respiratory Respiratory: bilateral: diminished, wheezing, negative: CTA, - Cardiovascular Rhythm: regular Heart sounds: normal: S1, S2 - Gastrointestinal General gastrointestinal: normal bowel sounds, soft - Integumentary Integumentary: normal turgor - Neurologic Cannot assess being on ventilator - Musculoskeletal Cannot assess being on ventilator - Psychiatric Psychiatric: Cannot assess being on ventilator - Labs CBC & Chem 7: 06/24/19 04:50 06/24/19 14:05 Labs: Abnormal Lab Results - Last 24 Hours (Table) 06/23/19 06/24/19 06/24/19 Range/Units 17:20 00:13 04:35 RBC (4.30-5.90) m/uL Hgb (13.0-17.5) gm/dL Hct (39.0-53.0) % Plt Count (150-450) k/uL ABG pH 7.34 L (7.35-7.45) ABG pO2 66 L (83-108) mmHg ABG Total CO2 25 H (19-24) mmol/L ABG O2 Saturation 92.0 L (94-97) % Sodium (137-145) mmol/L Chloride (98-107) mmol/L BUN (9-20) mg/dL Glucose (74-99) mg/dL POC Glucose (mg/dL) 214 H 240 H (75-99) mg/dL Calcium (8.4-10.2) mg/dL 06/24/19 06/24/19 06/24/19 Range/Units 04:50 04:50 04:54 RBC 3.01 L (4.30-5.90) m/uL Hgb 9.7 L (13.0-17.5) gm/dL Hct 29.7 L (39.0-53.0) % Plt Count 85 L (150-450) k/uL ABG pH (7.35-7.45) ABG pO2 (83-108) mmHg ABG Total CO2 (19-24) mmol/L ABG O2 Saturation (94-97) % Sodium 146 H (137-145) mmol/L Chloride 118 H (98-107) mmol/L BUN 34 H (9-20) mg/dL Glucose 255 H (74-99) mg/dL POC Glucose (mg/dL) 270 H (75-99) mg/dL Calcium 8.1 L (8.4-10.2) mg/dL 06/24/19 Range/Units 11:42 RBC (4.30-5.90) m/uL Hgb (13.0-17.5) gm/dL Hct (39.0-53.0) % Plt Count (150-450) k/uL ABG pH (7.35-7.45) ABG pO2 (83-108) mmHg ABG Total CO2 (19-24) mmol/L ABG O2 Saturation (94-97) % Sodium (137-145) mmol/L Chloride (98-107) mmol/L BUN (9-20) mg/dL Glucose (74-99) mg/dL POC Glucose (mg/dL) 241 H (75-99) mg/dL Calcium (8.4-10.2) mg/dL Microbiology - Last 24 Hours (Table) 06/21/19 02:25 Gram Stain - Preliminary Sputum Sputum Culture - Preliminary Acinetobacter jessica/haemol Presumptive Staph aureus 06/20/19 22:09 Blood Culture - Preliminary Blood No Growth after 72 hours 06/20/19 18:30 Blood Culture - Preliminary Blood No Growth after 72 hours Assessment and Plan Assessment: Bilateral lower lobe pneumonia Small right-sided pleural effusion Acute hypoxic and hypercapnic respiratory failure Severe sepsis from unknown source Acute COPD exacerbation Purulent tracheobronchitis Cardiomyopathy nonischemic baseline ejection fraction 35%, chronic systolic heart failure Chronic atrial flutter fibrillation on Xarelto History of fall with multiple rib fracture pneumothorax History of extensive smoking and nicotine use Plan: Overall plan includes Taper sedation, get rid of propofol as tolerated, will do CPAP and pressure support trial tomorrow anticoagulation to be reinitiated Breathing treatment IV steroids Gentle diuresis Changing NG tube to OG tube Broad-spectrum antibiotics, antibiotics have been switched to IV Zosyn for aspiration pneumonia Monitor clinical course closely Continue gentle hydration Further recommendations pending plan of care as per clinical response of the patient Continue tube feed Time with Patient: Greater than 30
[2019-06-24 18:03] LABS: Glucose,Whole Blood 225 mg/dL (75-99)
--- NOTE | 2019-06-24 18:41 | PN ---
PROGRESS NOTE DATE OF SERVICE: 06/24/2019 REASON FOR FOLLOWUP: Pneumonia. INTERVAL HISTORY: The patient did spike a fever last evening of 101 and 100.6 today. The patient is hemodynamically stable, not requiring any pressor support. The patient remains intubated on the vent. FiO2 is currently up to 60%. He was also noted to have some erythema on his upper chest wall which has been marked by the RN. No other changes reported by the nursing staff. PHYSICAL EXAMINATION: Blood pressure is 126/75 with a pulse of 86, temperature 99.3. He is 92% on 60% FiO2. General description is a middle-aged male lying in bed in no distress. HEENT EXAMINATION: The patient is orally intubated. Upper chest wall did have an area of erythema that has been marked. LUNGS: Unlabored breathing. Decreased breath sounds at the bases. No wheeze. HEART: S1, S2. Regular rate and rhythm. ABDOMEN: Soft. No tenderness. LABS: Hemoglobin 9.7, white count 4.1, BUN of 34, creatinine 1.16. Sputum with Acinetobacter baumannii and Staph aureus. DIAGNOSTIC IMPRESSION AND PLAN: Patient with acute respiratory failure which is likely multifactorial in this patient who did have a component of pneumonia. Sputum has now been finalized with acinetobacter and Staphylococcus aureus. Discontinue Zosyn. Will start the patient on Unasyn 3 grams q.6 hours and vancomycin and will monitor his clinical course closely. MMODL / IJN: [id number] /
[2019-06-24] MEDS: LORazepam 2 MG/ML INJ IV PRN (19:53)
[2019-06-24] MEDS: ATORVASTATIN 10 MG TAB PO SCH (20:20)
[2019-06-24] MEDS: MONTELUKAST 10 MG TAB PO SCH (20:20)
[2019-06-24] MEDS: QUEtiapine 100 MG TAB PO SCH (20:22)
--- NOTE | 2019-06-24 20:39 | XR ---
EXAMINATION TYPE: XR chest 1V portable DATE OF EXAM: 06/24/2019 COMPARISON: Today HISTORY: Check tube placement TECHNIQUE: Single view FINDINGS: Endotracheal tube is 6 cm from the tank. There is nasogastric tube in the gastric antrum. There is blunting of right costophrenic angle. There is mild pulmonary congestion. There are chest l bella. Heart is enlarged. IMPRESSION: Mild heart failure. Right pleural effusion. Chest unchanged. Small left pleural effusion.
[2019-06-24] MEDS ORDERED: FUROSEMIDE 10 MG/ML 4 ML VIAL IV STA (21:11)
[2019-06-24] MEDS: ACETAMINOPHEN TAB 325 MG TAB PO PRN (23:34)
[2019-06-24 23:41] LABS: Glucose,Whole Blood 301 mg/dL (75-99)
[2019-06-25] MEDS: SODIUM CHLORIDE 0.45% 1,000 ML IV SCH ×2 (02:06→23:53)
[2019-06-25] MEDS: PROPOFOL 1,000 MG in EMPTY BAG 1 BAG IV SCH ×7 (02:07→22:14)
[2019-06-25] MEDS: VANCOMYCIN 1,500 MG in SODIUM CHLORIDE 0.9% 250 ML IVPB SCH ×2 (02:09→13:09)
[2019-06-25] MEDS: CISATRACURIUM 200 MG in SODIUM CHLORIDE 0.9% 180 ML IV SCH (02:35)
[2019-06-25] MEDS: IPRATROPIUM-ALBUTEROL 3 ML NEB INHALATION PRN (03:43)
[2019-06-25] MEDS: NOREPINEPHRINE 4 MG in SODIUM CHLORIDE 0.9% 250 ML IV SCH ×2 (03:59→20:04)
[2019-06-25] MEDS: MORPHINE SULFATE 2 MG/ML SYRINGE IVP PRN ×2 (04:03→11:51)
[2019-06-25 04:45] LABS: ABG Base Excess 3.8 mmol/L; ABG HCO3 28 mmol/L (21-25); ABG Oxygen Saturation 96.1 % (94-97); ABG PCO2 43 mmHg (35-45); ABG PH 7.43 (7.35-7.45); ABG PO2 80 mmHg (83-108); ABG TCO2 30 mmol/L (19-24); Allen Test Performed? Yes
[2019-06-25 04:55] LABS: HCT 29.3 % (39.0-53.0); HGB 9.1 gm/dL (13.0-17.5); Hypochromasia Slight; MCH 30.4 pg (25.0-35.0); MCV 98.1 fL (80.0-100.0); Mean Platelet Volume 8.8; RBC 2.98 m/uL (4.30-5.90); RDW 14.6 % (11.5-15.5); WBC 5.4 k/uL (3.8-10.6)
[2019-06-25 04:59] LABS: Platelet Count 90 k/uL (150-450)
[2019-06-25] MEDS: LORazepam 2 MG/ML INJ IV PRN (05:27)
[2019-06-25 05:34] LABS: Calcium 8.4 mg/dL (8.4-10.2); Potassium 3.6 mmol/L (3.5-5.1)
--- NOTE | 2019-06-25 05:50 | XR ---
EXAMINATION TYPE: XR chest 1V portable DATE OF EXAM: 06/25/2019 HISTORY: Tube placement. REFERENCE: Previous study dated 06/24/2019. FINDINGS: The patient is ET tube and NG tube remain in place, unchanged in appearance. The heart is enlarged. There is worsening right basilar airspace disease and also some left basilar a irspace disease. There are bilateral effusions, greater on the right than the left. There is mild vas cular congestion. I cannot exclude some interstitial change. IMPRESSION: 1. CARDIOMEGALY. 2. MILD CHANGES OF HEART FAILURE. 3. WORSENING RIGHT BASILAR AIRSPACE DISEASE. 4. BILATERAL EFFUSIONS, GREATER ON THE RIGHT THAN THE LEFT.
[2019-06-25 05:54] LABS: Glucose,Whole Blood 297 mg/dL (75-99)
[2019-06-25] MEDS: INSULIN REGULAR 100 UNIT in SODIUM CHLORIDE 0.9% 100 ML IV SCH ×2 (06:28→16:16)
[2019-06-25] MEDS: AMPICILLIN-SULBACTAM 3 GM in SODIUM CHLORIDE 0.9% 100 ML IVPB SCH ×4 (06:30→23:47)
[2019-06-25] MEDS: methylPREDNISolone SOD SUCCI 125 MG/2 ML VIAL IV SCH ×4 (06:36→23:50)
[2019-06-25 06:56] LABS: Glucose,Whole Blood 287 mg/dL (75-99)
[2019-06-25] MEDS ORDERED: POTASSIUM BICARBONATE/CIT AC 20 MEQ TABLET.EFF NG-TUBE SCH (07:00)
[2019-06-25] MEDS ORDERED: LORazepam 2 MG/ML INJ IV PRN (07:13)
[2019-06-25 07:57] LABS: Glucose,Whole Blood 285 mg/dL (75-99)
[2019-06-25] MEDS: IPRATROPIUM-ALBUTEROL 3 ML NEB INHALATION SCH ×4 (08:26→19:55)
[2019-06-25] MEDS: FORMOTEROL FUMARATE 20 MCG/2 ML NEBU INHALATION SCH ×2 (08:26→19:55)
[2019-06-25] MEDS: BUDESONIDE 1 MG/2 ML NEBU INHALATION SCH ×2 (08:26→19:55)
[2019-06-25] MEDS: NICOTINE 14MG/24HR PATCH TRANSDERM SCH (08:51)
[2019-06-25] MEDS: diphenhydrAMINE 50 MG/ML 1 ML VIAL IVP SCH ×2 (08:51→16:23)
[2019-06-25] MEDS: PANTOPRAZOLE 40 MG/10 ML VIAL IVP SCH (08:52)
[2019-06-25] MEDS: METOPROLOL TARTRATE 50 MG TAB PO SCH ×2 (08:52→20:40)
[2019-06-25] MEDS: AMIODARONE 200 MG TAB PO SCH (08:52)
[2019-06-25] MEDS: CHLORHEXIDINE GLUCONATE 15 ML CUP MUCOUS MEM SCH ×2 (08:52→20:40)
[2019-06-25] MEDS: PARoxetine 20 MG TAB PO SCH (08:52)
[2019-06-25] MEDS: FUROSEMIDE 10 MG/ML 4 ML VIAL IV SCH ×2 (08:52→22:21)
[2019-06-25] MEDS: LISINOPRIL 5 MG TAB PO SCH (08:52)
[2019-06-25] MEDS: RIVAROXABAN 20 MG TAB PO SCH (08:53)
[2019-06-25] MEDS: POLYETHYLENE GLYCOL 3350 17 GM POWD.PACK PO SCH (08:53)
[2019-06-25 09:11] LABS: Glucose,Whole Blood 204 mg/dL (75-99)
[2019-06-25 10:03] LABS: Glucose,Whole Blood 206 mg/dL (75-99)
[2019-06-25 11:02] LABS: Glucose,Whole Blood 188 mg/dL (75-99)
[2019-06-25] MEDS: MULTIVITAMINS, THERA 1 EACH TAB PO SCH (11:30)
[2019-06-25 11:57] LABS: Glucose,Whole Blood 161 mg/dL (75-99)
[2019-06-25 13:06] LABS: Glucose,Whole Blood 139 mg/dL (75-99)
[2019-06-25 14:16] LABS: Glucose,Whole Blood 189 mg/dL (75-99)
[2019-06-25] MEDS: POTASSIUM BICARBONATE/CIT AC 20 MEQ TABLET.EFF NG-TUBE SCH ×2 (14:32→16:22)
--- NOTE | 2019-06-25 14:42 | P.PN ---
Subjective Progress Note Date: 06/25/19 Principal diagnosis: Acute hypoxic/hypercapnic respiratory failure 06/23/2019 patient seen eval examined during the rounds patient is off of vasopressors off of the medical paralysis however remains on the propofol 70 mics, patient is deeply sedated remains on assist control rate of 16 tidal volume of 505 of PEEP and FiO2 down to 40, chest x-ray reviewed overall remains stable patient is being treated for bilateral pneumonia, tomorrow patient will be tapered down on sedation and see if a CPAP of 5 trial with pressure support can be done; patient remains on ventilatory support with pulmonary/intensive care following; we will follow the patient along with you 06/24/2019 Patient is seen and evaluated in room at bedside; remains intubated; concerns about rash development last night upper chest and neck area; patient is started on IV Benadryl helping with slow resolution of rash; patient has been evaluated by ID and IV antibiotics have been changed to Unasyn 3 g IV every 6 hours; we will continue with IV Benadryl for another 3 doses and monitor patient closely 06/25/2019 Patient remains intubated; repeat chest x-ray this morning shows mild changes of heart failure, worsening right basilar airspace disease and bilateral effusions; patient remains on Lasix 40 mg IV daily; IV antibiotics in form of Unasyn 3 g IV every 6 hoursand IV vancomycin per pharmacy dosing service; 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 with 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; patient has been started on IV insulin infusion for poorly controlled blood glucose Objective - Vital Signs Vital signs: Vital Signs Temp 97.5 F L 06/25/19 08:00 Pulse 69 06/25/19 11:00 Resp 22 06/25/19 11:00 BP 102/57 06/25/19 11:00 Pulse Ox 95 06/25/19 11:00 Intake & Output 06/24/19 06/25/19 06/25/19 18:59 06:59 18:59 Intake Total 1958.915 858.336 501.118 Output Total 2305 1250 875 Balance -346.085 -391.664 -373.882 Weight 92.76 kg Intake: IV 1210 240 100 Ampicillin-Sulbactam 3 gm 100 In Sodium Chloride 0.9% 100 ml @ 200 mls/hr IVPB Q6HR [facility] Rx#:[id number] Sodium Chloride 0.45% 1, 360 240 100 000 ml @ 20 mls/hr IV . Q24H [facility] Rx#:[id number] Sodium Chloride 0.9% 1, 500 000 ml @ 100 mls/hr IV . Q10H [facility] Rx#:[id number] Vancomycin 1,500 mg In 250 Sodium Chloride 0.9% 250 ml @ 125 mls/hr IVPB Q12H [facility] Rx#:[id number] Intake, IV Titration 288.915 308.336 201.118 Amount Insulin Regular 100 unit 6.3 36 In Sodium Chloride 0.9% 100 ml @ Per Protocol IV .Q0M [facility] Rx#:[id number] Propofol 1,000 mg In 288.915 302.036 165.118 Empty Bag 1 bag @ Titrate IV .Q0M [facility] Rx#: [id number] Tube Feeding 240 220 100 Other 220 90 100 Output: Urine 2305 1250 875 Other: Voiding Method Indwelling Catheter Indwelling Catheter Indwelling Catheter ABP, PAP, CO, CI - Last Documented Arterial Blood Pressure 126/59 - Exam GENERAL: Patient remains intubated and sedated. HEENT: Pupils are round and equally reacting to light. EOMI. No scleral icterus. No conjunctival pallor. Normocephalic, atraumatic. No pharyngeal erythema. No thyromegaly. CARDIOVASCULAR: S1 and S2 present. No murmurs, rubs, or gallops. PULMONARY: Chest is clear to auscultation, no wheezing or crackles. ABDOMEN: Soft, nontender, nondistended, normoactive bowel sounds. No palpable organomegaly. MUSCULOSKELETAL: No joint swelling or deformity. EXTREMITIES: No cyanosis, clubbing, or pedal edema. NEUROLOGICAL: Patient remains sedated. SKIN: No rashes. - Labs CBC & Chem 7: 06/25/19 04:40 06/25/19 13:10 Labs: Abnormal Lab Results - Last 24 Hours (Table) 06/24/19 06/24/19 06/25/19 Range/Units 18:01 23:38 04:40 RBC 2.98 L (4.30-5.90) m/uL Hgb 9.1 L (13.0-17.5) gm/dL Hct 29.3 L (39.0-53.0) % Plt Count 90 L (150-450) k/uL ABG pO2 (83-108) mmHg ABG HCO3 (21-25) mmol/L ABG Total CO2 (19-24) mmol/L Sodium (137-145) mmol/L Chloride (98-107) mmol/L BUN (9-20) mg/dL Glucose (74-99) mg/dL POC Glucose (mg/dL) 225 H 301 H (75-99) mg/dL 06/25/19 06/25/19 06/25/19 Range/Units 04:40 04:41 05:53 RBC (4.30-5.90) m/uL Hgb (13.0-17.5) gm/dL Hct (39.0-53.0) % Plt Count (150-450) k/uL ABG pO2 80 L (83-108) mmHg ABG HCO3 28 H (21-25) mmol/L ABG Total CO2 30 H (19-24) mmol/L Sodium 148 H (137-145) mmol/L Chloride 117 H (98-107) mmol/L BUN 44 H (9-20) mg/dL Glucose 287 H (74-99) mg/dL POC Glucose (mg/dL) 297 H (75-99) mg/dL 06/25/19 06/25/19 06/25/19 Range/Units 06:55 07:56 09:10 RBC (4.30-5.90) m/uL Hgb (13.0-17.5) gm/dL Hct (39.0-53.0) % Plt Count (150-450) k/uL ABG pO2 (83-108) mmHg ABG HCO3 (21-25) mmol/L ABG Total CO2 (19-24) mmol/L Sodium (137-145) mmol/L Chloride (98-107) mmol/L BUN (9-20) mg/dL Glucose (74-99) mg/dL POC Glucose (mg/dL) 287 H 285 H 204 H (75-99) mg/dL 06/25/19 06/25/19 Range/Units 10:01 11:00 RBC (4.30-5.90) m/uL Hgb (13.0-17.5) gm/dL Hct (39.0-53.0) % Plt Count (150-450) k/uL ABG pO2 (83-108) mmHg ABG HCO3 (21-25) mmol/L ABG Total CO2 (19-24) mmol/L Sodium (137-145) mmol/L Chloride (98-107) mmol/L BUN (9-20) mg/dL Glucose (74-99) mg/dL POC Glucose (mg/dL) 206 H 188 H (75-99) mg/dL Microbiology - Last 24 Hours (Table) 06/21/19 02:25 Gram Stain - Final Sputum Sputum Culture - Final Acinetobacter jessica/haemol Methicillin resist S. aureus 06/20/19 22:09 Blood Culture - Preliminary Blood No Growth after 96 hours 06/23/19 19:30 Blood Culture - Preliminary Blood No Growth after 24 hours 06/20/19 18:30 Blood Culture - Preliminary Blood No Growth after 96 hours Assessment and Plan Assessment: 1. Bilateral lower lobe pneumonia 2. Small right-sided pleural effusion 3. Acute hypoxic and hypercapnic respiratory failure 4. Severe sepsis from unknown source 5. Acute COPD exacerbation 6. Purulent tracheobronchitis 7. Cardiomyopathy nonischemic baseline ejection fraction 35%, chronic systolic heart failure 8. Chronic atrial flutter fibrillation on Xarelto 9. History of fall with multiple rib fracture pneumothorax Patient remains in ICU; remains intubated; critical care is following and planning to taper sedation with a trial of CPAP and pressure support tomorrow morning; patient has been started on anticoagulation; remains on bronchodilator nebulizer treatments and IV steroids in form of Solu-Medrol 60 mg every 8 hours; continue with broad-spectrum antibiotics in form of IV Zosyn to cover aspiration pneumonia DVT prophylaxis CODE STATUS; full code
[2019-06-25 14:56] LABS: Glucose,Whole Blood 184 mg/dL (75-99)
[2019-06-25 16:09] LABS: Glucose,Whole Blood 169 mg/dL (75-99)
[2019-06-25 17:11] LABS: Glucose,Whole Blood 186 mg/dL (75-99)
[2019-06-25 17:56] LABS: Glucose,Whole Blood 176 mg/dL (75-99)
[2019-06-25 18:56] LABS: Glucose,Whole Blood 173 mg/dL (75-99)
[2019-06-25 20:01] LABS: Glucose,Whole Blood 181 mg/dL (75-99)
--- NOTE | 2019-06-25 20:18 | PN ---
PROGRESS NOTE DATE OF SERVICE: 06/25/2019 REASON FOR FOLLOWUP: Pneumonia. INTERVAL HISTORY: The patient is currently afebrile. Patient is hemodynamically stable not requiring any pressor support. FiO2 is currently 65%. No diarrhea reported by the nursing staff. There is a wound to the upper chest area, has not shown any worsening. PHYSICAL EXAMINATION: Blood pressure is 126/54 with a pulse of 72, temperature of 99.1. He is 94% on 65% FiO2. GENERAL DESCRIPTION is a middle-aged male lying in bed in no distress. RESPIRATORY SYSTEM: Unlabored breathing. Decreased breath sounds at the bases. No wheeze. HEART S1, S2. Regular rate and rhythm. ABDOMEN: Soft, no tenderness. EXTREMITIES: No edema of the feet. LABS: Hemoglobin 9.1, white count 5.4. BUN is 44, creatinine is 1.22. The sputum has been finalized with MRSA and Acinetobacter. DIAGNOSTIC IMPRESSION AND PLAN: Patient with acute respiratory failure with patient's sputum has been finalized Acinetobacter and MRSA. The patient is covered with Unasyn and vancomycin to continue and monitor his clinical course closely. Continue supportive care. MMODL / IJN: [id number] /
[2019-06-25] MEDS: ATORVASTATIN 10 MG TAB PO SCH (20:40)
[2019-06-25] MEDS: QUEtiapine 100 MG TAB PO SCH (20:40)
[2019-06-25] MEDS: MONTELUKAST 10 MG TAB PO SCH (20:40)
[2019-06-25 20:55] LABS: Glucose,Whole Blood 192 mg/dL (75-99)
[2019-06-25 22:12] LABS: Glucose,Whole Blood 192 mg/dL (75-99)
--- NOTE | 2019-06-25 22:31 | P.PN ---
Subjective Progress Note Date: 06/25/19 (Preventative critical care time 35 minutes) Principal diagnosis: Polymicrobial pneumonia associated with Acinetobacter and Staph Acute hypoxic and hypercapnic respiratory failure Acute COPD exacerbation Mild hyper natremia Fluid overload Cardiomyopathy nonischemic baseline ejection fraction 35%, chronic systolic heart failure Chronic atrial flutter fibrillation History of fall with multiple rib fracture pneumothorax History of extensive smoking and nicotine use 06/25/2019, patient seen eval examined during the rounds labs reviewed medications reviewed patient continued to be hypoxic today is for the first time she is -730 mL his urine output is fairly adequate about 50 60/h but has been declining, he is on 40 mg of IV Lasix will increase it to twice a day, his NG tube is changed OG tube, the cellulitis that he has on neck and upper chest seems to be slowly progressing, patient has been switched to antibiotics currently on ampicillin along with IV vancomycin, his went setting includes assist control rate of 16 tidal volume of 500 PEEP has been escalated to 8, FiO2 is 70% with that saturation is 90 urine 94%, he is off of vasopressors, his cultures are growing Acinetobacter and MRSA in the sputum, he is tolerating tube feed very well, patient is being replaced on hypokalemia 06/24/2019, patient seen and evaluated examined during the rounds labs reviewed medications reviewed patient came back positive for Acinetobacter and Staph in the sputum, he remains hemodynamically stable off of vasopressors, however he is positive almost 10-15 L, patient has a good response with Lasix given this morning we'll put on a daily basis also patient has mild hypernatremia S patient is tolerating tube feed will DC the extra IV fluids, we'll continue to titrate propofol down as tolerated plan to do weaning tomorrow, labs reviewed medications reviewed care plan discussed with the staff at length FiO2 is slightly increased to 60% and likely related to fluid overload 06/23/2019, patient seen eval examined during the rounds patient is off of vasopressors off of the medical paralysis however remains on the propofol 70 mics, patient is deeply sedated remains on assist control rate of 16 tidal volume of 505 of PEEP and FiO2 down to 40%, chest x-ray reviewed overall remains stable patient is being treated for bilateral pneumonia, tomorrow we'll taper down the sedation and see if a CPAP of 5 trial with pressure support can be done continued to feed for now repeat labs and x-ray tomorrow 06/22/2019, patient seen eval reexamined during the rounds, Nimbex drip have been tapered and DC'd, patient remains on full ventilator support, fall was attempted to wean down but patient becomes anxious and agitated he does intermittently open eyes, he remains on assist control mode rate of 16 and tidal volume of 500+5 of PEEP and 50% oxygen, white cell count is 4000 with stable hemoglobin of 710.6, arterial blood gases on above vent setting include pH is 7.32 pCO2 30 and pO2 109 FiO2 subsequently decreased to 40%, order have been placed restart the tube feed patient remains on vancomycin and high-dose Rocephin, patient has been evaluated by infectious disease services the pretest probability of the meningitis is low but he remains on emperic therapy, will wean down the propofol further and reassess the mental status and try to wean as tolerated, chest x-ray showed right lower lobe pneumonia and a small effusion 06/21/2019, patient seen eval reexamined during the rounds events from earlier this morning noted patient developed respiratory distress and severe metabolic acidosis likely related to acute COPD exacerbation and severe sepsis from unknown source, patient was intubated due to severe agitation patient has been started on medical paralysis we'll start tapering it down now currently patient is 4 out of 4 will cut it down to half and gradually taper and DC it continue propofol for sedation, supplemental it with Ativan and morphine, chest x-ray from earlier this morning reviewed prominent interstitium has been noted, lacking lactic acid noted to have improved, patient had been aggressively resuscitated with crystalloids, blood pressure is normal the levo fed is being titrated down currently he is on 2 mics, when setting includes assist control rate of 16 and tidal volume of 500 PEEP of 5 and FiO2 is down to 50%, 10 cultures have been done, flu studies noted to be negative, Rocephin is 1 g along with Zithromax we will increase the dose of Rocephin to 2 g and add vancomycin as well for now, prior to intubation patient was complaining of stiffness in the upper extremity head and neck area, spinal tap couldn't be performed as patient is on blood thinners, likelihood of meningitis however is low, labs reviewed medications reviewed critical care time 35 minutes This is a 54-year-old male who was seen evaluated examined in the emergency department this morning he has been not feeling well for 2 weeks of progressive cough shortness of breath associated with purulent sputum production came into emergency department for further evaluation chest x-ray has been negative for any acute process, overall a poor historian he has a long-standing history of cardiovascular problems including chronic atrial fibrillation and flutter history of the chronic systolic heart failure baseline ejection fraction of 30% it is thought to be nonischemic cardiomyopathy, patient has a history of Graves' disease pulmonary embolism thyroid disorder history of falls with the pneumothorax and hemothorax and multiple refracture hospitalized back in 2017 on arrival he was noted to have a low-grade fever now resolved, he is being treated with broad-spectrum antibiotics, bronchodilators as well as IV steroids Objective - Vital Signs Vital signs: Vital Signs Temp 99.1 F 06/25/19 20:00 Pulse 67 06/25/19 22:00 Resp 13 06/25/19 22:00 BP 105/61 06/25/19 22:00 Pulse Ox 93 L 06/25/19 22:00 Intake & Output 06/25/19 06/25/19 06/26/19 06:59 18:59 06:59 Intake Total 637.580 6306.351 289.364 Output Total 1250 1880 305 Balance -391.664 -381.649 -15.636 Weight 94.71 kg Intake: IV 240 490 80 Sodium Chloride 0.45% 1, 240 240 80 000 ml @ 20 mls/hr IV . Q24H [facility] Rx#:[id number] Vancomycin 1,500 mg In 250 Sodium Chloride 0.9% 250 ml @ 125 mls/hr IVPB Q12H [facility] Rx#:[id number] Intake, IV Titration 308.336 538.351 119.364 Amount Ampicillin-Sulbactam 3 gm 100 In Sodium Chloride 0.9% 100 ml @ 200 mls/hr IVPB Q6HR [facility] Rx#:[id number] Insulin Regular 100 unit 6.3 73.233 29.200 In Sodium Chloride 0.9% 100 ml @ Per Protocol IV .Q0M [facility] Rx#:[id number] Propofol 1,000 mg In 302.036 365.118 90.164 Empty Bag 1 bag @ Titrate IV .Q0M [facility] Rx#: [id number] Tube Feeding 220 240 60 Other 90 230 30 Output: Urine 1250 1880 305 Other: Voiding Method Indwelling Catheter Indwelling Catheter ABP, PAP, CO, CI - Last Documented Arterial Blood Pressure 127/57 - Exam - Constitutional General appearance: average body habitus, stable currently with medical paralysis and propofol - EENT Eyes: anicteric sclerae, EOMI, PERRLA, poor dentition, normal appearance Ears: bilateral: normal - Neck Neck: normal ROM, diffuse rash which is erythematous involving the neck and upper chest and shoulders Carotids: bilateral: upstroke normal Thyroid: bilateral: normal size - Respiratory Respiratory: bilateral: diminished, wheezing, negative: CTA, - Cardiovascular Rhythm: regular Heart sounds: normal: S1, S2 - Gastrointestinal General gastrointestinal: normal bowel sounds, soft - Integumentary Integumentary: normal turgor - Neurologic Cannot assess being on ventilator - Musculoskeletal Cannot assess being on ventilator - Psychiatric Psychiatric: Cannot assess being on ventilator - Labs CBC & Chem 7: 06/25/19 04:40 06/25/19 13:10 Labs: Abnormal Lab Results - Last 24 Hours (Table) 06/24/19 06/25/19 06/25/19 Range/Units 23:38 04:40 04:40 RBC 2.98 L (4.30-5.90) m/uL Hgb 9.1 L (13.0-17.5) gm/dL Hct 29.3 L (39.0-53.0) % Plt Count 90 L (150-450) k/uL ABG pO2 (83-108) mmHg ABG HCO3 (21-25) mmol/L ABG Total CO2 (19-24) mmol/L Sodium 148 H (137-145) mmol/L Potassium (3.5-5.1) mmol/L Chloride 117 H (98-107) mmol/L BUN 44 H (9-20) mg/dL Glucose 287 H (74-99) mg/dL POC Glucose (mg/dL) 301 H (75-99) mg/dL 06/25/19 06/25/19 06/25/19 Range/Units 04:41 05:53 06:55 RBC (4.30-5.90) m/uL Hgb (13.0-17.5) gm/dL Hct (39.0-53.0) % Plt Count (150-450) k/uL ABG pO2 80 L (83-108) mmHg ABG HCO3 28 H (21-25) mmol/L ABG Total CO2 30 H (19-24) mmol/L Sodium (137-145) mmol/L Potassium (3.5-5.1) mmol/L Chloride (98-107) mmol/L BUN (9-20) mg/dL Glucose (74-99) mg/dL POC Glucose (mg/dL) 297 H 287 H (75-99) mg/dL 06/25/19 06/25/19 06/25/19 Range/Units 07:56 09:10 10:01 RBC (4.30-5.90) m/uL Hgb (13.0-17.5) gm/dL Hct (39.0-53.0) % Plt Count (150-450) k/uL ABG pO2 (83-108) mmHg ABG HCO3 (21-25) mmol/L ABG Total CO2 (19-24) mmol/L Sodium (137-145) mmol/L Potassium (3.5-5.1) mmol/L Chloride (98-107) mmol/L BUN (9-20) mg/dL Glucose (74-99) mg/dL POC Glucose (mg/dL) 285 H 204 H 206 H (75-99) mg/dL 06/25/19 06/25/19 06/25/19 Range/Units 11:00 11:55 13:05 RBC (4.30-5.90) m/uL Hgb (13.0-17.5) gm/dL Hct (39.0-53.0) % Plt Count (150-450) k/uL ABG pO2 (83-108) mmHg ABG HCO3 (21-25) mmol/L ABG Total CO2 (19-24) mmol/L Sodium (137-145) mmol/L Potassium (3.5-5.1) mmol/L Chloride (98-107) mmol/L BUN (9-20) mg/dL Glucose (74-99) mg/dL POC Glucose (mg/dL) 188 H 161 H 139 H (75-99) mg/dL 06/25/19 06/25/19 06/25/19 Range/Units 13:10 14:15 14:55 RBC (4.30-5.90) m/uL Hgb (13.0-17.5) gm/dL Hct (39.0-53.0) % Plt Count (150-450) k/uL ABG pO2 (83-108) mmHg ABG HCO3 (21-25) mmol/L ABG Total CO2 (19-24) mmol/L Sodium (137-145) mmol/L Potassium 3.1 L (3.5-5.1) mmol/L Chloride (98-107) mmol/L BUN (9-20) mg/dL Glucose (74-99) mg/dL POC Glucose (mg/dL) 189 H 184 H (75-99) mg/dL 06/25/19 06/25/19 06/25/19 Range/Units 16:07 17:09 17:55 RBC (4.30-5.90) m/uL Hgb (13.0-17.5) gm/dL Hct (39.0-53.0) % Plt Count (150-450) k/uL ABG pO2 (83-108) mmHg ABG HCO3 (21-25) mmol/L ABG Total CO2 (19-24) mmol/L Sodium (137-145) mmol/L Potassium (3.5-5.1) mmol/L Chloride (98-107) mmol/L BUN (9-20) mg/dL Glucose (74-99) mg/dL POC Glucose (mg/dL) 169 H 186 H 176 H (75-99) mg/dL 06/25/19 06/25/19 06/25/19 Range/Units 18:54 20:00 20:54 RBC (4.30-5.90) m/uL Hgb (13.0-17.5) gm/dL Hct (39.0-53.0) % Plt Count (150-450) k/uL ABG pO2 (83-108) mmHg ABG HCO3 (21-25) mmol/L ABG Total CO2 (19-24) mmol/L Sodium (137-145) mmol/L Potassium (3.5-5.1) mmol/L Chloride (98-107) mmol/L BUN (9-20) mg/dL Glucose (74-99) mg/dL POC Glucose (mg/dL) 173 H 181 H 192 H (75-99) mg/dL 06/25/19 Range/Units 22:11 RBC (4.30-5.90) m/uL Hgb (13.0-17.5) gm/dL Hct (39.0-53.0) % Plt Count (150-450) k/uL ABG pO2 (83-108) mmHg ABG HCO3 (21-25) mmol/L ABG Total CO2 (19-24) mmol/L Sodium (137-145) mmol/L Potassium (3.5-5.1) mmol/L Chloride (98-107) mmol/L BUN (9-20) mg/dL Glucose (74-99) mg/dL POC Glucose (mg/dL) 192 H (75-99) mg/dL Microbiology - Last 24 Hours (Table) 06/23/19 19:30 Blood Culture - Preliminary Blood No Growth after 48 hours 06/20/19 18:30 Blood Culture - Preliminary Blood No Growth after 120 hours 06/21/19 02:25 Gram Stain - Final Sputum Sputum Culture - Final Acinetobacter jessica/haemol Methicillin resist S. aureus 06/20/19 22:09 Blood Culture - Preliminary Blood No Growth after 96 hours Assessment and Plan Assessment: Bilateral lower lobe pneumonia due to Acinetobacter and MRSA in the sputum Small right-sided pleural effusion Fluid overload Acute hypoxic and hypercapnic respiratory failure Severe sepsis from above Diffuse rash of the neck and upper shoulder Acute COPD exacerbation Purulent tracheobronchitis Cardiomyopathy nonischemic baseline ejection fraction 35%, chronic systolic heart failure Chronic atrial flutter fibrillation on Xarelto History of fall with multiple rib fracture pneumothorax History of extensive smoking and nicotine use Plan: Overall plan includes Taper sedation, get rid of propofol as tolerated, will do CPAP and pressure support once oxygenation improved anticoagulation to be continued Breathing treatment IV steroids Gentle diuresis Continue to feed via OG tube Broad-spectrum antibiotics, Monitor clinical course closely Further recommendations pending plan of care as per clinical response of the patient Increase Lasix to 40 mg IV every 12 Time with Patient: Greater than 30
[2019-06-25 23:09] LABS: Glucose,Whole Blood 177 mg/dL (75-99)
[2019-06-25 23:57] LABS: Glucose,Whole Blood 152 mg/dL (75-99)
[2019-06-26] MEDS: CISATRACURIUM 200 MG in SODIUM CHLORIDE 0.9% 180 ML IV SCH (00:46)
[2019-06-26 01:00] LABS: Glucose,Whole Blood 137 mg/dL (75-99)
[2019-06-26] MEDS: VANCOMYCIN 1,500 MG in SODIUM CHLORIDE 0.9% 250 ML IVPB SCH ×2 (01:06→13:21)
[2019-06-26] MEDS: PROPOFOL 1,000 MG in EMPTY BAG 1 BAG IV SCH ×8 (01:10→21:44)
[2019-06-26 02:05] LABS: Glucose,Whole Blood 187 mg/dL (75-99)
[2019-06-26 02:30] LABS: Glucose,Whole Blood 179 mg/dL (75-99)
[2019-06-26 03:05] LABS: Glucose,Whole Blood 197 mg/dL (75-99)
[2019-06-26 03:59] LABS: Glucose,Whole Blood 193 mg/dL (75-99)
[2019-06-26 04:54] LABS: Glucose,Whole Blood 209 mg/dL (75-99)
[2019-06-26 05:07] LABS: ABG Base Excess 8.4 mmol/L; ABG HCO3 32 mmol/L (21-25); ABG Oxygen Saturation 93.3 % (94-97); ABG PCO2 40 mmHg (35-45); ABG PO2 64 mmHg (83-108); ABG TCO2 33 mmol/L (19-24)
[2019-06-26 05:10] LABS: Allen Test Performed? no
[2019-06-26] MEDS: methylPREDNISolone SOD SUCCI 125 MG/2 ML VIAL IV SCH ×3 (05:36→17:29)
[2019-06-26] MEDS: AMPICILLIN-SULBACTAM 3 GM in SODIUM CHLORIDE 0.9% 100 ML IVPB SCH ×3 (05:36→17:29)
[2019-06-26 05:56] LABS: Basophils # (A) 0.1 k/uL (0-0.2); Basophils % (A) 2 %; Eosinophils % (A) 0 %; HGB 9.6 gm/dL (13.0-17.5); Hypochromasia Slight; Lymphocytes # (A) 0.6 k/uL (1.0-4.8); Lymphocytes % (A) 7 %; MCHC 31.9 g/dL (31.0-37.0); Mean Platelet Volume 9.3; Monocytes # (A) 0.3 k/uL (0-1.0); Monocytes % (A) 4 %; Neutrophils # (A) 6.7 k/uL (1.3-7.7); Neutrophils % (A) 83 %; Platelet Count 122 k/uL (150-450); RBC 3.09 m/uL (4.30-5.90); RDW 14.4 % (11.5-15.5)
[2019-06-26 06:04] LABS: Glucose,Whole Blood 189 mg/dL (75-99)
[2019-06-26 06:04] LABS: Calcium 8.7 mg/dL (8.4-10.2); Potassium 3.4 mmol/L (3.5-5.1)
[2019-06-26] MEDS ORDERED: Potassium Replacement Protocol 1 EACH MISC MISCELLANE PRN (06:49)
[2019-06-26 07:00] LABS: Glucose,Whole Blood 159 mg/dL (75-99)
[2019-06-26] MEDS ORDERED: POTASSIUM CHLORIDE 20 MEQ in WATER FOR INJECTION 1 100ML.BAG IVPB SCH (07:00)
[2019-06-26] MEDS: BUDESONIDE 1 MG/2 ML NEBU INHALATION SCH ×2 (07:26→19:38)
[2019-06-26] MEDS: FORMOTEROL FUMARATE 20 MCG/2 ML NEBU INHALATION SCH ×2 (07:26→19:38)
[2019-06-26] MEDS: IPRATROPIUM-ALBUTEROL 3 ML NEB INHALATION SCH ×4 (07:27→19:39)
--- NOTE | 2019-06-26 07:38 | XR ---
EXAMINATION TYPE: XR chest 1V portable DATE OF EXAM: 06/26/2019 COMPARISON: 06/25/2019 HISTORY: Tube placement. Ventilatory dependent respiratory failure. TECHNIQUE: Single frontal view of the chest is obtained. FINDINGS: Enteric and endotracheal tubes are similar in position. There are bibasilar patchy opaciti es that are somewhat shifting in appearance but improved in the right midlung. Multiple old right pos terior rib fracture deformities are seen. There is blunting of the costophrenic angles, right greater than left. Cardia mediastinal silhouette is again enlarged. IMPRESSION: Slight improved aeration of the right midlung with more confluent opacities remaining of the left midlung and right lung base. Small right and trace left pleural effusions also remain. Find ings are likely on the basis of decompensated congestive heart failure.
[2019-06-26 08:09] LABS: Glucose,Whole Blood 127 mg/dL (75-99)
[2019-06-26] MEDS: INSULIN REGULAR 100 UNIT in SODIUM CHLORIDE 0.9% 100 ML IV SCH ×2 (08:26→23:22)
[2019-06-26] MEDS: CHLORHEXIDINE GLUCONATE 15 ML CUP MUCOUS MEM SCH ×2 (08:36→20:23)
[2019-06-26] MEDS: ERGOCALCIFEROL 50,000 UNIT CAP PO SCH (08:36)
[2019-06-26] MEDS: LISINOPRIL 5 MG TAB PO SCH (08:36)
[2019-06-26] MEDS: NICOTINE 14MG/24HR PATCH TRANSDERM SCH (08:37)
[2019-06-26] MEDS: FUROSEMIDE 10 MG/ML 4 ML VIAL IV SCH ×2 (08:37→20:24)
[2019-06-26] MEDS: RIVAROXABAN 20 MG TAB PO SCH (08:37)
[2019-06-26] MEDS: PANTOPRAZOLE 40 MG/10 ML VIAL IVP SCH (08:37)
[2019-06-26] MEDS: POTASSIUM CHLORIDE 10 MEQ in WATER FOR INJECTION 1 100ML.BAG IVPB SCH ×4 (08:38→11:15)
[2019-06-26] MEDS: AMIODARONE 200 MG TAB PO SCH (08:39)
[2019-06-26] MEDS: PARoxetine 20 MG TAB PO SCH (08:40)
[2019-06-26] MEDS: METOPROLOL TARTRATE 50 MG TAB PO SCH ×2 (08:43→20:23)
[2019-06-26] MEDS: POLYETHYLENE GLYCOL 3350 17 GM POWD.PACK PO SCH (08:43)
[2019-06-26 08:59] LABS: Glucose,Whole Blood 140 mg/dL (75-99)
[2019-06-26 10:08] LABS: Glucose,Whole Blood 201 mg/dL (75-99)
[2019-06-26 10:50] LABS: ABG Base Excess 9.9 mmol/L; ABG HCO3 33 mmol/L (21-25); ABG Oxygen Saturation 89.4 % (94-97); ABG PCO2 40 mmHg (35-45); ABG PH 7.52 (7.35-7.45); ABG TCO2 34 mmol/L (19-24); Allen Test Performed? Yes
[2019-06-26 10:53] LABS: ABG PO2 55 mmHg (83-108)
[2019-06-26] MEDS ORDERED: RX INFO: IV CONTRAST WAS GIVEN 1 EACH MISC MISCELLANE PRN (10:53)
[2019-06-26] MEDS: MULTIVITAMINS, THERA 1 EACH TAB PO SCH (11:17)
[2019-06-26 11:33] LABS: Glucose,Whole Blood 220 mg/dL (75-99)
[2019-06-26 11:57] LABS: Glucose,Whole Blood 235 mg/dL (75-99)
[2019-06-26] MEDS ORDERED: VANCOMYCIN TROUGH DUE 1 EACH MISC MISCELLANE ONE (12:00)
--- NOTE | 2019-06-26 12:09 | P.PN ---
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 Presents on 06/20/2019 with respiratory distress. Status post intubation and placed on mechanical ventilation on 06/21/2019 patient is being the ICU and he followed closely by pulmonary/critical care team with Dr. David as well as infectious team. Patient was found to have acute COPD exacerbation, right pneumonia secondary to MRSA and Acetobacter, patient is on antibiotics with Unasyn and IV vancomycin, his also on some Detrol 60 mg, Xarelto 20 mg daily and he is also on CIWA protocol. He is on oral Lasix. He got 1 dose of Lasix yesterday, he is saturating 89% on 70 FiO2, his ABG showing pO2 of 54, as per pulmonary team his mechanical ventilation has been adjusted after that with recommendation to repeat ABG in 4 hours. Today patient has a rash in the upper chest. He has to regular bowel movements Review of system: N/a Active Medications Generic Name Dose Route Start Last Admin Trade Name Freq PRN Reason Stop Dose Admin Acetaminophen 650 mg 06/23/19 20:15 06/24/19 23:34 Tylenol Tab PO 650 mg Q6HR PRN Administration Fever and/ or Pain Hydrocodone Bitart/Acetaminophen 1 each 06/20/19 14:40 06/20/19 18:25 [place] 7.5-325 PO 1 each Q6H PRN Administration Pain Albuterol Sulfate 2.5 mg 06/20/19 07:12 06/21/19 00:31 Ventolin Nebulized INHALATION 2.5 mg RT-Q4H PRN Administration Dyspnea Albuterol/Ipratropium 3 ml 06/20/19 08:00 06/26/19 11:09 Duoneb 0.5 Mg-3 Mg/3 Ml Soln INHALATION 3 ml RT-QID RENZO Administration Albuterol/Ipratropium 3 ml 06/20/19 14:58 06/25/19 03:43 Duoneb 0.5 Mg-3 Mg/3 Ml Soln INHALATION 3 ml RT-QID PRN Administration Shortness Of Breath Or Wheezing Amiodarone HCl 200 mg 06/21/19 09:00 06/26/19 08:39 Cordarone PO 200 mg DAILY RENZO Administration Atorvastatin Calcium 10 mg 06/20/19 21:00 06/25/19 20:40 Lipitor PO 10 mg HS RENZO Administration Budesonide 1 mg 06/20/19 20:00 06/26/19 07:26 Pulmicort INHALATION 1 mg RT-BID RENZO Administration Chlorhexidine Gluconate 15 ml 06/21/19 09:00 06/26/19 08:36 Peridex MUCOUS MEM 15 ml BID RENZO Administration Ergocalciferol 50,000 unit 06/21/19 09:00 06/26/19 08:36 Vitamin D2 PO 50,000 unit [id number] RENZO Administration Formoterol Fumarate 20 mcg 06/20/19 20:00 06/26/19 07:26 Perforomist INHALATION 20 mcg RT-BID RENZO Administration Furosemide 40 mg 06/25/19 22:15 06/26/19 08:37 Lasix IV 40 mg Q12HR RENZO Administration Propofol 1,000 mg/ IV Solution 100 mls @ 0 mls/hr 06/21/19 01:45 06/26/19 10:07 IV 60 mcg/kg/min .Q0M RENZO 33.394 mls/hr Administration Protocol Titrate Cisatracurium Besylate 200 mg/ 200 mls @ 4.899 mls/hr 06/21/19 03:15 06/26/19 00:46 Sodium Chloride IV Not Given .Q24H RENZO Protocol 1 MCG/KG/MIN Norepinephrine Bitartrate 4 mg 254 mls @ 15.554 mls/hr 06/21/19 03:15 06/25/19 20:04 / Sodium Chloride IV Not Given .[id number] RENZO Protocol 0.05 MCG/KG/MIN Sodium Chloride 1,000 mls @ 20 mls/hr 06/24/19 11:15 06/25/19 23:53 Saline 0.45% IV 20 mls/hr .Q24H RENZO Administration Ampicillin Sodium/Sulbactam 100 mls @ 200 mls/hr 06/24/19 12:45 06/26/19 11:14 Sodium 3 gm/ Sodium Chloride IVPB 200 mls/hr Q6HR RENZO Administration Vancomycin HCl 1,500 mg/ 250 mls @ 125 mls/hr 06/24/19 13:00 06/26/19 01:06 Sodium Chloride IVPB 125 mls/hr Q12H RENZO Administration Insulin Human Regular 100 unit 101 mls @ 0 mls/hr 06/25/19 06:15 06/26/19 11:56 / Sodium Chloride IV 13 mls/hr .Q0M RENZO 13 mls/hr Titration Protocol Per Protocol Lisinopril 5 mg 06/20/19 15:15 06/26/19 08:36 Zestril PO 5 mg DAILY RENZO Administration Lorazepam 1 mg 06/20/19 20:29 06/25/19 05:27 Ativan IV 1 mg Q2HR PRN Administration CIWA 8 or 9 Lorazepam 1 mg 06/20/19 20:29 Ativan IV Q1HR PRN CIWA 10 to 15 Lorazepam 4 mg 06/25/19 07:13 06/25/19 13:43 Ativan IV 4 mg Q2HR PRN Administration Anxiety Methylprednisolone Sodium Succinate 60 mg 06/20/19 18:00 06/26/19 11:17 Solu-Medrol IV 60 mg Q6HR RENZO Administration Metoprolol Tartrate 50 mg 06/20/19 21:00 06/26/19 08:43 Lopressor PO 50 mg BID RENZO Administration Miscellaneous Information 1 each 06/22/19 05:01 Potassium Per Protocol MISCELLANE DAILY PRN Per Protocol Protocol Miscellaneous Information 1 each 06/24/19 15:46 Potassium Per Protocol MISCELLANE DAILY PRN Per Protocol Protocol Miscellaneous Information 1 each 06/26/19 06:49 Potassium Per Protocol MISCELLANE DAILY PRN Per Protocol Protocol Miscellaneous Information 1 each 06/26/19 10:53 Rx Info: Iv Contrast Was Given MISCELLANE 06/28/19 10:54 DAILY PRN Per Protocol Montelukast Sodium 10 mg 06/20/19 21:00 06/25/19 20:40 Singulair PO 10 mg HS RENZO Administration Morphine Sulfate 2 mg 06/21/19 10:04 06/25/19 11:51 Morphine Sulfate (Inj) IVP 2 mg Q2H PRN Administration Pain/Discomfort Multivitamins 1 each 06/21/19 12:00 06/26/19 11:17 Theragran PO 1 each DAILY@1200 RENZO Administration Naloxone HCl 0.2 mg 06/20/19 22:43 Narcan IV Q2M PRN Opioid Reversal Nicotine 1 patch 06/20/19 15:15 06/26/19 08:37 Habitrol 14mg/24hr Patch TRANSDERM 1 patch DAILY RENZO Administration Pantoprazole Sodium 40 mg 06/21/19 09:00 06/26/19 08:37 Protonix IVP 40 mg DAILY RENZO Administration Paroxetine HCl 40 mg 06/20/19 15:15 06/26/19 08:40 Paxil PO 40 mg DAILY RENZO Administration Polyethylene Glycol 17 gm 06/21/19 09:00 06/26/19 08:43 Miralax PO Not Given DAILY RENZO Quetiapine Fumarate 100 mg 06/20/19 21:00 06/25/19 20:40 Seroquel PO 100 mg HS RENZO Administration Rivaroxaban 20 mg 06/20/19 15:15 06/26/19 08:37 Xarelto PO 20 mg DAILY RENZO Administration Objective - Vital Signs Vital signs: Vital Signs Temp 98.7 F 06/26/19 08:00 Pulse 85 06/26/19 11:15 Resp 22 06/26/19 10:00 BP 116/70 06/26/19 10:00 Pulse Ox 89 L 06/26/19 10:00 Intake & Output 06/25/19 06/26/19 06/26/19 18:59 06:59 18:59 Intake Total 7667.959 6714.320 594.183 Output Total 1880 1950 825 Balance -381.649 -675.680 -230.817 Weight 94.71 kg 94.4 kg 94.4 kg Intake: IV 490 590 80 Ampicillin-Sulbactam 3 gm 100 In Sodium Chloride 0.9% 100 ml @ 200 mls/hr IVPB Q6HR RENZO Rx#:[id number] Sodium Chloride 0.45% 1, 240 240 80 000 ml @ 20 mls/hr IV . Q24H RENZO Rx#:[id number] Vancomycin 1,500 mg In 250 250 Sodium Chloride 0.9% 250 ml @ 125 mls/hr IVPB Q12H RENZO Rx#:[id number] Intake, IV Titration 538.351 374.320 404.183 Amount Ampicillin-Sulbactam 3 gm 100 In Sodium Chloride 0.9% 100 ml @ 200 mls/hr IVPB Q6HR RENZO Rx#:[id number] Insulin Regular 100 unit 73.233 86.200 14.95 In Sodium Chloride 0.9% 100 ml @ Per Protocol IV .Q0M RENZO Rx#:[id number] Potassium Chloride 10 meq 200 In Water For Injection 1 100ml.bag @ 100 mls/hr IVPB Q1HR RENZO Rx#: [id number] Propofol 1,000 mg In 365.118 288.120 189.233 Empty Bag 1 bag @ Titrate IV .Q0M RENZO Rx#: [id number] Tube Feeding 240 220 80 Other 230 90 30 Output: Urine 1880 1950 825 Other: Voiding Method Indwelling Catheter Indwelling Catheter Indwelling Catheter # Bowel Movements 1 ABP, PAP, CO, CI - Last Documented Arterial Blood Pressure 120/55 - Exam -GENERAL: The patient is intubated and sedated HEENT: Pupils are round and equally reacting to light. EOMI. No scleral icterus. No conjunctival pallor. Normocephalic, atraumatic. No pharyngeal erythema. No thyromegaly. CARDIOVASCULAR: S1 and S2 present. No murmurs, rubs, or gallops. -PULMONARY: Chest is clear to auscultation, Decreased air entry on both sides with scattered wheezing and crepitation especially in the basal lung zones ABDOMEN: Soft, nontender, nondistended, normoactive bowel sounds. No palpable organomegaly. MUSCULOSKELETAL: No joint swelling or deformity. -EXTREMITIES: No cyanosis, clubbing,. Mild bilateral leg edema NEUROLOGICAL: Gross neurological examination did not reveal any focal deficits. Exam is limited by patient condition SKIN: No rashes. no petechiae. - Labs CBC & Chem 7: 06/26/19 05:17 06/26/19 05:17 Labs: Abnormal Lab Results - Last 24 Hours (Table) 06/25/19 06/25/19 06/25/19 Range/Units 11:55 13:05 13:10 RBC (4.30-5.90) m/uL Hgb (13.0-17.5) gm/dL Hct (39.0-53.0) % Plt Count (150-450) k/uL Lymphocytes # (1.0-4.8) k/uL ABG pH (7.35-7.45) ABG pO2 (83-108) mmHg ABG HCO3 (21-25) mmol/L ABG Total CO2 (19-24) mmol/L ABG O2 Saturation (94-97) % Sodium (137-145) mmol/L Potassium 3.1 L (3.5-5.1) mmol/L Chloride (98-107) mmol/L Carbon Dioxide (22-30) mmol/L BUN (9-20) mg/dL Glucose (74-99) mg/dL POC Glucose (mg/dL) 161 H 139 H (75-99) mg/dL 06/25/19 06/25/19 06/25/19 Range/Units 14:15 14:55 16:07 RBC (4.30-5.90) m/uL Hgb (13.0-17.5) gm/dL Hct (39.0-53.0) % Plt Count (150-450) k/uL Lymphocytes # (1.0-4.8) k/uL ABG pH (7.35-7.45) ABG pO2 (83-108) mmHg ABG HCO3 (21-25) mmol/L ABG Total CO2 (19-24) mmol/L ABG O2 Saturation (94-97) % Sodium (137-145) mmol/L Potassium (3.5-5.1) mmol/L Chloride (98-107) mmol/L Carbon Dioxide (22-30) mmol/L BUN (9-20) mg/dL Glucose (74-99) mg/dL POC Glucose (mg/dL) 189 H 184 H 169 H (75-99) mg/dL 06/25/19 06/25/19 06/25/19 Range/Units 17:09 17:55 18:54 RBC (4.30-5.90) m/uL Hgb (13.0-17.5) gm/dL Hct (39.0-53.0) % Plt Count (150-450) k/uL Lymphocytes # (1.0-4.8) k/uL ABG pH (7.35-7.45) ABG pO2 (83-108) mmHg ABG HCO3 (21-25) mmol/L ABG Total CO2 (19-24) mmol/L ABG O2 Saturation (94-97) % Sodium (137-145) mmol/L Potassium (3.5-5.1) mmol/L Chloride (98-107) mmol/L Carbon Dioxide (22-30) mmol/L BUN (9-20) mg/dL Glucose (74-99) mg/dL POC Glucose (mg/dL) 186 H 176 H 173 H (75-99) mg/dL 06/25/19 06/25/19 06/25/19 Range/Units 20:00 20:54 22:11 RBC (4.30-5.90) m/uL Hgb (13.0-17.5) gm/dL Hct (39.0-53.0) % Plt Count (150-450) k/uL Lymphocytes # (1.0-4.8) k/uL ABG pH (7.35-7.45) ABG pO2 (83-108) mmHg ABG HCO3 (21-25) mmol/L ABG Total CO2 (19-24) mmol/L ABG O2 Saturation (94-97) % Sodium (137-145) mmol/L Potassium (3.5-5.1) mmol/L Chloride (98-107) mmol/L Carbon Dioxide (22-30) mmol/L BUN (9-20) mg/dL Glucose (74-99) mg/dL POC Glucose (mg/dL) 181 H 192 H 192 H (75-99) mg/dL 06/25/19 06/25/19 06/26/19 Range/Units 23:07 23:55 00:58 RBC (4.30-5.90) m/uL Hgb (13.0-17.5) gm/dL Hct (39.0-53.0) % Plt Count (150-450) k/uL Lymphocytes # (1.0-4.8) k/uL ABG pH (7.35-7.45) ABG pO2 (83-108) mmHg ABG HCO3 (21-25) mmol/L ABG Total CO2 (19-24) mmol/L ABG O2 Saturation (94-97) % Sodium (137-145) mmol/L Potassium (3.5-5.1) mmol/L Chloride (98-107) mmol/L Carbon Dioxide (22-30) mmol/L BUN (9-20) mg/dL Glucose (74-99) mg/dL POC Glucose (mg/dL) 177 H 152 H 137 H (75-99) mg/dL 06/26/19 06/26/19 06/26/19 Range/Units 02:04 02:29 03:03 RBC (4.30-5.90) m/uL Hgb (13.0-17.5) gm/dL Hct (39.0-53.0) % Plt Count (150-450) k/uL Lymphocytes # (1.0-4.8) k/uL ABG pH (7.35-7.45) ABG pO2 (83-108) mmHg ABG HCO3 (21-25) mmol/L ABG Total CO2 (19-24) mmol/L ABG O2 Saturation (94-97) % Sodium (137-145) mmol/L Potassium (3.5-5.1) mmol/L Chloride (98-107) mmol/L Carbon Dioxide (22-30) mmol/L BUN (9-20) mg/dL Glucose (74-99) mg/dL POC Glucose (mg/dL) 187 H 179 H 197 H (75-99) mg/dL 06/26/19 06/26/19 06/26/19 Range/Units 03:58 04:53 05:02 RBC (4.30-5.90) m/uL Hgb (13.0-17.5) gm/dL Hct (39.0-53.0) % Plt Count (150-450) k/uL Lymphocytes # (1.0-4.8) k/uL ABG pH 7.50 H (7.35-7.45) ABG pO2 64 L (83-108) mmHg ABG HCO3 32 H (21-25) mmol/L ABG Total CO2 33 H (19-24) mmol/L ABG O2 Saturation 93.3 L (94-97) % Sodium (137-145) mmol/L Potassium (3.5-5.1) mmol/L Chloride (98-107) mmol/L Carbon Dioxide (22-30) mmol/L BUN (9-20) mg/dL Glucose (74-99) mg/dL POC Glucose (mg/dL) 193 H 209 H (75-99) mg/dL 06/26/19 06/26/19 06/26/19 Range/Units 05:17 05:17 06:03 RBC 3.09 L (4.30-5.90) m/uL Hgb 9.6 L (13.0-17.5) gm/dL Hct 30.0 L (39.0-53.0) % Plt Count 122 L (150-450) k/uL Lymphocytes # 0.6 L (1.0-4.8) k/uL ABG pH (7.35-7.45) ABG pO2 (83-108) mmHg ABG HCO3 (21-25) mmol/L ABG Total CO2 (19-24) mmol/L ABG O2 Saturation (94-97) % Sodium 152 H (137-145) mmol/L Potassium 3.4 L (3.5-5.1) mmol/L Chloride 117 H (98-107) mmol/L Carbon Dioxide 33 H (22-30) mmol/L BUN 63 H (9-20) mg/dL Glucose 181 H (74-99) mg/dL POC Glucose (mg/dL) 189 H (75-99) mg/dL 06/26/19 06/26/19 06/26/19 Range/Units 06:58 08:07 08:57 RBC (4.30-5.90) m/uL Hgb (13.0-17.5) gm/dL Hct (39.0-53.0) % Plt Count (150-450) k/uL Lymphocytes # (1.0-4.8) k/uL ABG pH (7.35-7.45) ABG pO2 (83-108) mmHg ABG HCO3 (21-25) mmol/L ABG Total CO2 (19-24) mmol/L ABG O2 Saturation (94-97) % Sodium (137-145) mmol/L Potassium (3.5-5.1) mmol/L Chloride (98-107) mmol/L Carbon Dioxide (22-30) mmol/L BUN (9-20) mg/dL Glucose (74-99) mg/dL POC Glucose (mg/dL) 159 H 127 H 140 H (75-99) mg/dL 06/26/19 06/26/19 Range/Units 10:07 10:43 RBC (4.30-5.90) m/uL Hgb (13.0-17.5) gm/dL Hct (39.0-53.0) % Plt Count (150-450) k/uL Lymphocytes # (1.0-4.8) k/uL ABG pH 7.52 H (7.35-7.45) ABG pO2 55 L* (83-108) mmHg ABG HCO3 33 H (21-25) mmol/L ABG Total CO2 34 H (19-24) mmol/L ABG O2 Saturation 89.4 L (94-97) % Sodium (137-145) mmol/L Potassium (3.5-5.1) mmol/L Chloride (98-107) mmol/L Carbon Dioxide (22-30) mmol/L BUN (9-20) mg/dL Glucose (74-99) mg/dL POC Glucose (mg/dL) 201 H (75-99) mg/dL Microbiology - Last 24 Hours (Table) 06/20/19 22:09 Blood Culture - Preliminary Blood No Growth after 120 hours 06/23/19 19:30 Blood Culture - Preliminary Blood No Growth after 48 hours 06/20/19 18:30 Blood Culture - Preliminary Blood No Growth after 120 hours 06/21/19 02:25 Gram Stain - Final Sputum Sputum Culture - Final Acinetobacter jessica/haemol Methicillin resist S. aureus Assessment and Plan Assessment: Right pneumonia secondary to MRSA and Acinetobacter Acute tracheobronchitis Acute hypoxic respiratory failure Acute COPD exacerbation Bilateral pleural effusion, right more than left Erythematous rash in the upper chest Acute kidney injury, present on admission. Resolved Hypernatremia History of PE on Xarelto Chronic nonischemic cardiomyopathy with ejection fraction 30-35% Chronic A. fib Hypothyroidism Chronic alcohol abuse Nicotine dependence Hyperlipidemia Hypertension History of gravis disease History of squamous cell cancer of the skin with removal Plan: This is a 54 years old male who is mechanically ventilated. Patient is followed closely by infectious disease and pulmonary/critical care teams and follow-up recommendation. Continue with antibiotics as per ID team, continue with steroids, continue with his alcohol, continue with CIWA protocol. We'll check CT of the thorax and CT head Labs and medication were reviewed.. Continue same treatment. Continue with symptomatic treatment. Resume home medication. Monitor lytes and vitals. DVT and GI prophylaxis. Further recommendations of the clinical course of the patient DVT prophylaxis: Xarelto GI Prophylaxis: PPI Prognosis is guarded
[2019-06-26 13:29] LABS: Glucose,Whole Blood 170 mg/dL (75-99)
[2019-06-26] MEDS ORDERED: diphenhydrAMINE 50 MG/ML 1 ML VIAL IVP PRN (13:29)
[2019-06-26 13:45] LABS: ABG Base Excess 8.4 mmol/L; ABG HCO3 33 mmol/L (21-25); ABG Oxygen Saturation 91.3 % (94-97); ABG PCO2 52 mmHg (35-45); ABG PH 7.41 (7.35-7.45); ABG PO2 66 mmHg (83-108); ABG TCO2 35 mmol/L (19-24); Allen Test Performed? Yes
[2019-06-26] MEDS: ACETAMINOPHEN TAB 325 MG TAB PO PRN (13:47)
[2019-06-26 13:59] LABS: Glucose,Whole Blood 167 mg/dL (75-99)
--- NOTE | 2019-06-26 14:38 | CT ---
EXAMINATION TYPE: CT brain wo con DATE OF EXAM: 06/26/2019 HISTORY: COPD Exacerbation, confusion. Rule out CVA. CT DLP: 1086.4 mGycm. Automated Exposure Control for Dose Reduction was Utilized. TECHNIQUE: CT scan of the head is performed without contrast. COMPARISON: CT brain August 14, 2017. FINDINGS: There is no acute intracranial hemorrhage or midline shift identified. There is diffuse v entricular and sulcal prominence consistent with diffuse age-related cerebral atrophy. There is low- attenuation in the periventricular white matter consistent with chronic small vessel ischemic change. Some increasing opacification right mastoid air cells versus prior study versus the opposite left si de is present. Moderate mucosal thickening and air-fluid level in the flexed portion of right maxilla ry sinus is now seen. Surgically treated after metal complex is thought patent bilaterally. IMPRESSION: No acute intracranial hemorrhage or midline shift. There is mild to moderate diffuse ce rebral atrophy most prominent over the bilateral frontal and parietal lobes and mild to minimal chron ic small vessel ischemic change redemonstrated. No significant change from prior CT. New acute on ch ronic right maxillary sinus disease is thought present, correlate clinically. Possible minimal right- sided mastoiditis, correlate clinically.
[2019-06-26 15:02] LABS: Glucose,Whole Blood 131 mg/dL (75-99)
--- NOTE | 2019-06-26 15:02 | CT ---
EXAMINATION TYPE: CT chest w con DATE OF EXAM: 06/26/2019 COMPARISON: CT chest May 24, [address] October 13, 2016. Most recent chest x-ray earlier toda y HISTORY: COPD exacerbation, chest wall cellulitis and pneumonia CT DLP: 662.9 mGycm. Automated Exposure Control for Dose Reduction was Utilized. TECHNIQUE: CT scan of the thorax is performed following with IV Contrast, patient injected with 100 mL of Isovue 300. FINDINGS: There is motion artifact degradation making evaluation suboptimal. LUNGS: Endotracheal tube terminates above tank. Background mild to moderate underlying emphysematou s change is present. There is small right pleural effusion or fluid collection that extends to lung a pex or does not completely layer dependently. There is associated right lower lung atelectasis and/or consolidation. There is posterior left lower lung consolidation and/or atelectasis. Bilateral lower lungs near diaphragm show areas of groundglass opacity and additional areas of by lateral annular sca rring and/or atelectasis. No pneumothorax bilaterally. MEDIASTINUM: Nasogastric tube projects below diaphragm. Cardiomegaly is redemonstrated. Coronary art main calcification again seen which is noted marker for underlying coronary artery disease. No pericar dial effusion. No new greater than 1 cm hilar or mediastinal adenopathy. Persistent enlarged main pul monary artery at 3.2 cm diameter image 24, CT findings suggesting underlying pulmonary artery hyperte nsion. Stable prominent heterogeneous right thyroid nodule lower pole on image 54. OTHER: Small degree of bilateral subareolar gynecomastia is redemonstrated. Mild multilevel spurring in the spine. Multiple posterior right rib fractures with bridging osteophytes are present formed fro m displaced fractures May 24, 2017 New Splenomegaly only partially imaged measuring 16.2 cm long axis axial image 57. Spleen size simila r on February 03, 2019 CT. Cholecystectomy clips are redemonstrated IMPRESSION: 1. Suboptimal study, background mild to moderate underlying emphysematous change. Tiny right pleural effusion or fluid collection. Posterior lower lung atelectasis and/or consolidation bilaterally. Tha tional patchy infiltrates and/or edema with atelectatic change in both lung bases. 2. Cardiomegaly with underlying pulmonary hypertension redemonstrated. 3. Greater than 1 cm lower pole right thyroid nodule redemonstrated. Thyroid ultrasound is advised to better evaluate and characterize if it has not been worked up in past. 4. Partial visualization of known splenomegaly seen on February 03, 2019 CT new from May 2017 CT m ay warrant further clinical workup if was not been performed.
[2019-06-26] MEDS: NOREPINEPHRINE 4 MG in SODIUM CHLORIDE 0.9% 250 ML IV SCH (15:36)
--- NOTE | 2019-06-26 16:08 | P.PN ---
Subjective Progress Note Date: 06/26/19 Principal diagnosis: Polymicrobial pneumonia associated with Acinetobacter and Staph Acute hypoxic and hypercapnic respiratory failure Acute COPD exacerbation Mild hyper natremia Fluid overload Cardiomyopathy nonischemic baseline ejection fraction 35%, chronic systolic heart failure Chronic atrial flutter fibrillation History of fall with multiple rib fracture pneumothorax History of extensive smoking and nicotine use 06/26/2019, patient seen eval examined during the rounds went setting have been adjusted patient is switched to SIMV with pressure support he seems to be doing with better with this setting PEEP was increased to 10 FiO2 is improved pH has improved however patient has hypernatremia she has been started on D5, computed tomography scan of the head as well as the chest has been performed which is reviewed, extensive emphysema and bibasilar infiltrates are seen, patient remains on propofol drip off of vasopressors now, labs reviewed medications rev iewed care plan discussed with Her family members at length, once oxygenation is improved gradually will wean down the ventilator setting, 06/25/2019, patient seen eval examined during the rounds labs reviewed medications reviewed patient continued to be hypoxic today is for the first time she is -730 mL his urine output is fairly adequate about 50 60/h but has been declining, he is on 40 mg of IV Lasix will increase it to twice a day, his NG tube is changed OG tube, the cellulitis that he has on neck and upper chest seems to be slowly progressing, patient has been switched to antibiotics cur rently on ampicillin along with IV vancomycin, his went setting includes assist control rate of 16 tidal volume of 500 PEEP has been escalated to 8, FiO2 is 70% with that saturation is 90 urine 94%, he is off of vasopressors, his cultures are growing Acinetobacter and MRSA in the sputum, he is tolerating tube feed very well, patient is being replaced on hypokalemia 06/24/2019, patient seen and evaluated examined during the rounds labs reviewed medications reviewed patient came back positive for Acinetobacter and Staph in the sputum, he remains hemodynamically stable off of vasopressors, however he is positive almost 10-15 L, patient has a good response with Lasix given this morning we'll put on a daily basis also patient has mild hypernatremia S patient is tolerating tube feed will DC the extra IV fluids, we'll continue to titrate propofol down as tolerated plan to do weaning tomorrow, labs reviewed medications reviewed care plan discussed with the staff at length FiO2 is slightly increased to 60% and likely related to fluid overload 06/23/2019, patient seen eval examined during the rounds patient is off of vasopressors off of the medical paralysis however remains on the propofol 70 mics, patient is deeply sedated remains on assist control rate of 16 tidal volume of 505 of PEEP and FiO2 down to 40%, chest x-ray reviewed overall remains stable patient is being treated for bilateral pneumonia, tomorrow we'll taper down the sedation and see if a CPAP of 5 trial with pressure support can be done continued to feed for now repeat labs and x-ray tomorrow 06/22/2019, patient seen eval reexamined during the rounds, Nimbex drip have been tapered and DC'd, patient remains on full ventilator support, fall was attempted to wean down but patient becomes anxious and agitated he does intermittently open eyes, he remains on assist control mode rate of 16 and tidal volume of 500+5 of PEEP and 50% oxygen, white cell count is 4000 with stable hemoglobin of 710.6, arterial blood gases on above vent setting include pH is 7.32 pCO2 30 and pO2 109 FiO2 subsequently decreased to 40%, order have been placed restart the tube feed patient remains on vancomycin and high-dose Rocephin, patient has been evaluated by infectious disease services the pretest probability of the meningitis is low but he remains on emperic therapy, will wean down the propofol further and reassess the mental status and try to wean as tolerated, chest x-ray showed right lower lobe pneumonia and a small effusion 06/21/2019, patient seen eval reexamined during the rounds events from earlier this morning noted patient developed respiratory distress and severe metabolic acidosis likely related to acute COPD exacerbation and severe sepsis from unknown source, patient was intubated due to severe agitation patient has been started on medical paralysis we'll start tapering it down now currently patient is 4 out of 4 will cut it down to half and gradually taper and DC it continue propofol for sedation, supplemental it with Ativan and morphine, chest x-ray from earlier this morning reviewed prominent interstitium has been noted, lacking lactic acid noted to have improved, patient had been aggressively r esuscitated with crystalloids, blood pressure is normal the levo fed is being titrated down currently he is on 2 mics, when setting includes assist control rate of 16 and tidal volume of 500 PEEP of 5 and FiO2 is down to 50%, 10 cultures have been done, flu studies noted to be negative, Rocephin is 1 g along with Zithromax we will increase the dose of Rocephin to 2 g and add vancomycin as well for now, prior to intubation patient was complaining of stiffness in the upper extremity head and neck area, spinal tap couldn't be performed as patient is on blood thinners, likelihood of meningitis however is low, labs reviewed medications reviewed critical care time 35 minutes This is a 54-year-old male who was seen evaluated examined in the emergency department this morning he has been not feeling well for 2 weeks of progressive cough shortness of breath associated with purulent sputum production came into emergency department for further evaluation chest x-ray has been negative for any acute process, overall a poor historian he has a long-standing history of cardiovascular problems including chronic atrial fibrillation and flutter history of the chronic systolic heart failure baseline ejection fraction of 30% it is thought to be nonischemic cardiomyopathy, patient has a history of Graves' disease pulmonary embolism thyroid disorder history of falls with the pneumothorax and hemothorax and multiple refracture hospitalized back in 2017 on arrival he was noted to have a low-grade fever now resolved, he is being treated with broad-spectrum antibiotics, bronchodilators as well as IV steroids Objective - Vital Signs Vital signs: Vital Signs Temp 100.1 F H 06/26/19 12:00 Pulse 85 06/26/19 15:48 Resp 18 06/26/19 15:48 BP 105/61 06/26/19 15:00 Pulse Ox 93 L 06/26/19 15:00 Intake & Output 06/25/19 06/26/19 06/26/19 18:59 06:59 18:59 Intake Total 7894.848 6162.320 1378.633 Output Total 1880 1950 1675 Balance -381.649 -675.680 -296.367 Weight 94.71 kg 94.4 kg 94.4 kg Intake: IV 490 590 430 Ampicillin-Sulbactam 3 gm 100 In Sodium Chloride 0.9% 100 ml @ 200 mls/hr IVPB Q6HR [facility] Rx#:[id number] Sodium Chloride 0.45% 1, 240 240 180 000 ml @ 20 mls/hr IV . Q24H [facility] Rx#:[id number] Vancomycin 1,500 mg In 250 250 250 Sodium Chloride 0.9% 250 ml @ 125 mls/hr IVPB Q12H [facility] Rx#:[id number] Intake, IV Titration 538.351 374.320 748.633 Amount Ampicillin-Sulbactam 3 gm 100 In Sodium Chloride 0.9% 100 ml @ 200 mls/hr IVPB Q6HR [facility] Rx#:[id number] Insulin Regular 100 unit 73.233 86.200 59.400 In Sodium Chloride 0.9% 100 ml @ Per Protocol IV .Q0M [facility] Rx#:[id number] Potassium Chloride 10 meq 400 In Water For Injection 1 100ml.bag @ 100 mls/hr IVPB Q1HR [facility] Rx#: [id number] Propofol 1,000 mg In 365.118 288.120 289.233 Empty Bag 1 bag @ Titrate IV .Q0M [facility] Rx#: [id number] Tube Feeding 240 220 140 Other 230 90 60 Output: Urine 1880 1950 1675 Other: Voiding Method Indwelling Catheter Indwelling Catheter Indwelling Catheter # Bowel Movements 1 ABP, PAP, CO, CI - Last Documented Arterial Blood Pressure 125/55 - Exam - Constitutional General appearance: average body habitus, stable currently with medical paralysis and propofol - EENT Eyes: anicteric sclerae, EOMI, PERRLA, poor dentition, normal appearance Ears: bilateral: normal - Neck Neck: normal ROM, diffuse rash which is erythematous involving the neck and upper chest and shoulders Carotids: bilateral: upstroke normal Thyroid: bilateral: normal size - Respiratory Respiratory: bilateral: diminished, wheezing, negative: CTA, - Cardiovascular Rhythm: regular Heart sounds: normal: S1, S2 - Gastrointestinal General gastrointestinal: normal bowel sounds, soft - Integumentary Integumentary: normal turgor - Neurologic Cannot assess being on ventilator - Musculoskeletal Cannot assess being on ventilator - Psychiatric Psychiatric: Cannot assess being on ventilator - Labs CBC & Chem 7: 06/26/19 05:17 06/26/19 12:00 Labs: Abnormal Lab Results - Last 24 Hours (Table) 06/25/19 06/25/19 06/25/19 Range/Units 16:07 17:09 17:55 RBC (4.30-5.90) m/uL Hgb (13.0-17.5) gm/dL Hct (39.0-53.0) % Plt Count (150-450) k/uL Lymphocytes # (1.0-4.8) k/uL ABG pH (7.35-7.45) ABG pCO2 (35-45) mmHg ABG pO2 (83-108) mmHg ABG HCO3 (21-25) mmol/L ABG Total CO2 (19-24) mmol/L ABG O2 Saturation (94-97) % Sodium (137-145) mmol/L Potassium (3.5-5.1) mmol/L Chloride (98-107) mmol/L Carbon Dioxide (22-30) mmol/L BUN (9-20) mg/dL Glucose (74-99) mg/dL POC Glucose (mg/dL) 169 H 186 H 176 H (75-99) mg/dL 06/25/19 06/25/19 06/25/19 Range/Units 18:54 20:00 20:54 RBC (4.30-5.90) m/uL Hgb (13.0-17.5) gm/dL Hct (39.0-53.0) % Plt Count (150-450) k/uL Lymphocytes # (1.0-4.8) k/uL ABG pH (7.35-7.45) ABG pCO2 (35-45) mmHg ABG pO2 (83-108) mmHg ABG HCO3 (21-25) mmol/L ABG Total CO2 (19-24) mmol/L ABG O2 Saturation (94-97) % Sodium (137-145) mmol/L Potassium (3.5-5.1) mmol/L Chloride (98-107) mmol/L Carbon Dioxide (22-30) mmol/L BUN (9-20) mg/dL Glucose (74-99) mg/dL POC Glucose (mg/dL) 173 H 181 H 192 H (75-99) mg/dL 06/25/19 06/25/19 06/25/19 Range/Units 22:11 23:07 23:55 RBC (4.30-5.90) m/uL Hgb (13.0-17.5) gm/dL Hct (39.0-53.0) % Plt Count (150-450) k/uL Lymphocytes # (1.0-4.8) k/uL ABG pH (7.35-7.45) ABG pCO2 (35-45) mmHg ABG pO2 (83-108) mmHg ABG HCO3 (21-25) mmol/L ABG Total CO2 (19-24) mmol/L ABG O2 Saturation (94-97) % Sodium (137-145) mmol/L Potassium (3.5-5.1) mmol/L Chloride (98-107) mmol/L Carbon Dioxide (22-30) mmol/L BUN (9-20) mg/dL Glucose (74-99) mg/dL POC Glucose (mg/dL) 192 H 177 H 152 H (75-99) mg/dL 06/26/19 06/26/19 06/26/19 Range/Units 00:58 02:04 02:29 RBC (4.30-5.90) m/uL Hgb (13.0-17.5) gm/dL Hct (39.0-53.0) % Plt Count (150-450) k/uL Lymphocytes # (1.0-4.8) k/uL ABG pH (7.35-7.45) ABG pCO2 (35-45) mmHg ABG pO2 (83-108) mmHg ABG HCO3 (21-25) mmol/L ABG Total CO2 (19-24) mmol/L ABG O2 Saturation (94-97) % Sodium (137-145) mmol/L Potassium (3.5-5.1) mmol/L Chloride (98-107) mmol/L Carbon Dioxide (22-30) mmol/L BUN (9-20) mg/dL Glucose (74-99) mg/dL POC Glucose (mg/dL) 137 H 187 H 179 H (75-99) mg/dL 06/26/19 06/26/19 06/26/19 Range/Units 03:03 03:58 04:53 RBC (4.30-5.90) m/uL Hgb (13.0-17.5) gm/dL Hct (39.0-53.0) % Plt Count (150-450) k/uL Lymphocytes # (1.0-4.8) k/uL ABG pH (7.35-7.45) ABG pCO2 (35-45) mmHg ABG pO2 (83-108) mmHg ABG HCO3 (21-25) mmol/L ABG Total CO2 (19-24) mmol/L ABG O2 Saturation (94-97) % Sodium (137-145) mmol/L Potassium (3.5-5.1) mmol/L Chloride (98-107) mmol/L Carbon Dioxide (22-30) mmol/L BUN (9-20) mg/dL Glucose (74-99) mg/dL POC Glucose (mg/dL) 197 H 193 H 209 H (75-99) mg/dL 06/26/19 06/26/19 06/26/19 Range/Units 05:02 05:17 05:17 RBC 3.09 L (4.30-5.90) m/uL Hgb 9.6 L (13.0-17.5) gm/dL Hct 30.0 L (39.0-53.0) % Plt Count 122 L (150-450) k/uL Lymphocytes # 0.6 L (1.0-4.8) k/uL ABG pH 7.50 H (7.35-7.45) ABG pCO2 (35-45) mmHg ABG pO2 64 L (83-108) mmHg ABG HCO3 32 H (21-25) mmol/L ABG Total CO2 33 H (19-24) mmol/L ABG O2 Saturation 93.3 L (94-97) % Sodium 152 H (137-145) mmol/L Potassium 3.4 L (3.5-5.1) mmol/L Chloride 117 H (98-107) mmol/L Carbon Dioxide 33 H (22-30) mmol/L BUN 63 H (9-20) mg/dL Glucose 181 H (74-99) mg/dL POC Glucose (mg/dL) (75-99) mg/dL 06/26/19 06/26/19 06/26/19 Range/Units 06:03 06:58 08:07 RBC (4.30-5.90) m/uL Hgb (13.0-17.5) gm/dL Hct (39.0-53.0) % Plt Count (150-450) k/uL Lymphocytes # (1.0-4.8) k/uL ABG pH (7.35-7.45) ABG pCO2 (35-45) mmHg ABG pO2 (83-108) mmHg ABG HCO3 (21-25) mmol/L ABG Total CO2 (19-24) mmol/L ABG O2 Saturation (94-97) % Sodium (137-145) mmol/L Potassium (3.5-5.1) mmol/L Chloride (98-107) mmol/L Carbon Dioxide (22-30) mmol/L BUN (9-20) mg/dL Glucose (74-99) mg/dL POC Glucose (mg/dL) 189 H 159 H 127 H (75-99) mg/dL 06/26/19 06/26/19 06/26/19 Range/Units 08:57 10:07 10:43 RBC (4.30-5.90) m/uL Hgb (13.0-17.5) gm/dL Hct (39.0-53.0) % Plt Count (150-450) k/uL Lymphocytes # (1.0-4.8) k/uL ABG pH 7.52 H (7.35-7.45) ABG pCO2 (35-45) mmHg ABG pO2 55 L* (83-108) mmHg ABG HCO3 33 H (21-25) mmol/L ABG Total CO2 34 H (19-24) mmol/L ABG O2 Saturation 89.4 L (94-97) % Sodium (137-145) mmol/L Potassium (3.5-5.1) mmol/L Chloride (98-107) mmol/L Carbon Dioxide (22-30) mmol/L BUN (9-20) mg/dL Glucose (74-99) mg/dL POC Glucose (mg/dL) 140 H 201 H (75-99) mg/dL 06/26/19 06/26/19 06/26/19 Range/Units 11:13 11:56 13:27 RBC (4.30-5.90) m/uL Hgb (13.0-17.5) gm/dL Hct (39.0-53.0) % Plt Count (150-450) k/uL Lymphocytes # (1.0-4.8) k/uL ABG pH (7.35-7.45) ABG pCO2 (35-45) mmHg ABG pO2 (83-108) mmHg ABG HCO3 (21-25) mmol/L ABG Total CO2 (19-24) mmol/L ABG O2 Saturation (94-97) % Sodium (137-145) mmol/L Potassium (3.5-5.1) mmol/L Chloride (98-107) mmol/L Carbon Dioxide (22-30) mmol/L BUN (9-20) mg/dL Glucose (74-99) mg/dL POC Glucose (mg/dL) 220 H 235 H 170 H (75-99) mg/dL 06/26/19 06/26/19 06/26/19 Range/Units 13:40 13:58 15:01 RBC (4.30-5.90) m/uL Hgb (13.0-17.5) gm/dL Hct (39.0-53.0) % Plt Count (150-450) k/uL Lymphocytes # (1.0-4.8) k/uL ABG pH (7.35-7.45) ABG pCO2 52 H (35-45) mmHg ABG pO2 66 L (83-108) mmHg ABG HCO3 33 H (21-25) mmol/L ABG Total CO2 35 H (19-24) mmol/L ABG O2 Saturation 91.3 L (94-97) % Sodium (137-145) mmol/L Potassium (3.5-5.1) mmol/L Chloride (98-107) mmol/L Carbon Dioxide (22-30) mmol/L BUN (9-20) mg/dL Glucose (74-99) mg/dL POC Glucose (mg/dL) 167 H 131 H (75-99) mg/dL Microbiology - Last 24 Hours (Table) 06/20/19 22:09 Blood Culture - Preliminary Blood No Growth after 120 hours 06/23/19 19:30 Blood Culture - Preliminary Blood No Growth after 48 hours 06/20/19 18:30 Blood Culture - Preliminary Blood No Growth after 120 hours 06/21/19 02:25 Gram Stain - Final Sputum Sputum Culture - Final Acinetobacter jessica/haemol Methicillin resist S. aureus Assessment and Plan Assessment: Bilateral lower lobe pneumonia due to Acinetobacter and MRSA in the sputum Small right-sided pleural effusion Fluid overload Hyper natremia Acute hypoxic and hypercapnic respiratory failure Severe sepsis from above Diffuse rash of the neck and upper shoulder Acute COPD exacerbation Purulent tracheobronchitis Cardiomyopathy nonischemic baseline ejection fraction 35%, chronic systolic heart failure Chronic atrial flutter fibrillation on Xarelto History of fall with multiple rib fracture pneumothorax History of extensive smoking and nicotine use Plan: Overall plan includes Taper sedation, get rid of propofol as tolerated, will do CPAP and pressure support once oxygenation improved, for the time being patient is on SIMV with pressure support anticoagulation to be continued Breathing treatment D5 for hyper natremia IV steroids Gentle diuresis Continue to feed via OG tube Broad-spectrum antibiotics, Monitor clinical course closely Further recommendations pending plan of care as per clinical response of the patient Increase Lasix to 40 mg IV every 12 Time with Patient: Greater than 30
[2019-06-26 16:20] LABS: Glucose,Whole Blood 121 mg/dL (75-99)
[2019-06-26 17:15] LABS: Glucose,Whole Blood 170 mg/dL (75-99)
[2019-06-26] MEDS: DEXTROSE 5% IN WATER 1,000 ML IV SCH (17:30)
[2019-06-26 17:55] LABS: Glucose,Whole Blood 204 mg/dL (75-99)
[2019-06-26 19:00] LABS: Glucose,Whole Blood 202 mg/dL (75-99)
[2019-06-26 20:03] LABS: Glucose,Whole Blood 192 mg/dL (75-99)
[2019-06-26] MEDS: ATORVASTATIN 10 MG TAB PO SCH (20:23)
[2019-06-26] MEDS: QUEtiapine 100 MG TAB PO SCH (20:23)
[2019-06-26] MEDS: MONTELUKAST 10 MG TAB PO SCH (20:23)
[2019-06-26 20:59] LABS: Glucose,Whole Blood 164 mg/dL (75-99)
[2019-06-26 21:08] LABS: Potassium 4.3 mmol/L (3.5-5.1)
[2019-06-26 21:56] LABS: Glucose,Whole Blood 128 mg/dL (75-99)
--- NOTE | 2019-06-26 22:52 | PN ---
PROGRESS NOTE DATE OF SERVICE: 06/26/2019 REASON FOR FOLLOWUP: 1. Pneumonia. 2. Right upper chest wall erythema with rash. INTERVAL HISTORY: The patient is currently afebrile. The patient is hemodynamically stable. FiO2 is currently stable. Not on any pressor support. No diarrhea has been reported. Patient remains intubated on the vent, unable to provide any history. PHYSICAL EXAMINATION: Blood pressure 129/67 with a pulse of 99, temperature of 98. He is 95% on 70% FiO2. General description is a middle-aged male intubated on the vent. RESPIRATORY SYSTEM: Unlabored breathing with decreased breath sounds at the base. HEART: S1, S2. Regular rate and rhythm. ABDOMEN: Soft. No tenderness. EXTREMITIES: No edema of the feet. Patient did have rash in the upper chest with slight extension to the upper arm. LABS: Hemoglobin is 9.7, white count 8.0. Creatinine is 1.22. Blood culture has been negative. Sputum with MRSA and acinetobacter. DIAGNOSTIC IMPRESSION AND PLAN: Patient with acute respiratory failure which is likely pneumonia, for which this patient did have a component of pneumonia with sputum showing acinetobacter and MRSA. Patient is covered with vancomycin and Unasyn resolved. The patient's upper chest wall rash which is mostly diffuse and has been concerning, for which a CT was done to make sure no evidence of any or subcutaneous emphysema. Unfortunately, CT report is suboptimal; will be reviewed with the radiologist. Patient to continue with Unasyn and vancomycin. Clinically doubt a drug-resistant rash, as this only upper chest area. 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 MMODL / IJN: [id number] /
[2019-06-26 22:56] LABS: Glucose,Whole Blood 157 mg/dL (75-99)
[2019-06-26 23:26] LABS: Glucose,Whole Blood 172 mg/dL (75-99)
[2019-06-26] MEDS: IPRATROPIUM-ALBUTEROL 3 ML NEB INHALATION PRN (23:54)
[2019-06-26 23:58] LABS: Glucose,Whole Blood 172 mg/dL (75-99)
[2019-06-27] MEDS: methylPREDNISolone SOD SUCCI 125 MG/2 ML VIAL IV SCH ×4 (00:14→17:13)
[2019-06-27] MEDS: AMPICILLIN-SULBACTAM 3 GM in SODIUM CHLORIDE 0.9% 100 ML IVPB SCH ×4 (00:15→17:13)
[2019-06-27] MEDS: PROPOFOL 1,000 MG in EMPTY BAG 1 BAG IV SCH ×9 (00:38→23:26)
[2019-06-27] MEDS: VANCOMYCIN 1,500 MG in SODIUM CHLORIDE 0.9% 250 ML IVPB SCH ×2 (01:06→12:46)
[2019-06-27 01:19] LABS: Glucose,Whole Blood 138 mg/dL (75-99)
[2019-06-27] MEDS: CISATRACURIUM 200 MG in SODIUM CHLORIDE 0.9% 180 ML IV SCH (01:41)
[2019-06-27 02:08] LABS: Glucose,Whole Blood 129 mg/dL (75-99)
[2019-06-27 03:02] LABS: Glucose,Whole Blood 153 mg/dL (75-99)
[2019-06-27] MEDS: IPRATROPIUM-ALBUTEROL 3 ML NEB INHALATION PRN (03:54)
[2019-06-27 03:56] LABS: Glucose,Whole Blood 164 mg/dL (75-99)
[2019-06-27] MEDS: ACETAMINOPHEN TAB 325 MG TAB PO PRN (04:39)
[2019-06-27 05:21] LABS: Glucose,Whole Blood 154 mg/dL (75-99)
[2019-06-27] MEDS: NOREPINEPHRINE 4 MG in SODIUM CHLORIDE 0.9% 250 ML IV SCH (05:52)
[2019-06-27 05:55] LABS: ABG Base Excess 9.9 mmol/L; ABG HCO3 34 mmol/L (21-25); ABG Oxygen Saturation 95.3 % (94-97); ABG PCO2 52 mmHg (35-45); ABG PH 7.43 (7.35-7.45); ABG PO2 80 mmHg (83-108); ABG TCO2 36 mmol/L (19-24)
[2019-06-27 05:59] LABS: Allen Test Performed? no
[2019-06-27 06:13] LABS: Glucose,Whole Blood 145 mg/dL (75-99)
[2019-06-27 06:34] LABS: Calcium 8.3 mg/dL (8.4-10.2); Potassium 4.2 mmol/L (3.5-5.1)
[2019-06-27 07:02] LABS: Glucose,Whole Blood 144 mg/dL (75-99)
[2019-06-27] MEDS: BUDESONIDE 1 MG/2 ML NEBU INHALATION SCH ×2 (07:51→19:25)
[2019-06-27] MEDS: FORMOTEROL FUMARATE 20 MCG/2 ML NEBU INHALATION SCH ×2 (07:51→19:25)
[2019-06-27] MEDS: IPRATROPIUM-ALBUTEROL 3 ML NEB INHALATION SCH ×4 (07:51→19:25)
[2019-06-27 07:59] LABS: Glucose,Whole Blood 140 mg/dL (75-99)
[2019-06-27] MEDS: POLYETHYLENE GLYCOL 3350 17 GM POWD.PACK PO SCH (08:02)
[2019-06-27] MEDS: FUROSEMIDE 10 MG/ML 4 ML VIAL IV SCH ×2 (08:24→21:56)
[2019-06-27] MEDS: PANTOPRAZOLE 40 MG/10 ML VIAL IVP SCH (08:24)
[2019-06-27] MEDS: RIVAROXABAN 20 MG TAB PO SCH (08:24)
[2019-06-27] MEDS: METOPROLOL TARTRATE 50 MG TAB PO SCH ×2 (08:24→21:57)
[2019-06-27] MEDS: AMIODARONE 200 MG TAB PO SCH (08:24)
[2019-06-27] MEDS: PARoxetine 20 MG TAB PO SCH (08:24)
[2019-06-27] MEDS: CHLORHEXIDINE GLUCONATE 15 ML CUP MUCOUS MEM SCH ×2 (08:24→21:56)
[2019-06-27] MEDS: NICOTINE 14MG/24HR PATCH TRANSDERM SCH (08:24)
[2019-06-27] MEDS: LISINOPRIL 5 MG TAB PO SCH (08:24)
[2019-06-27 08:56] LABS: C Reactive Protein 205.6 mg/L (<10.0)
--- NOTE | 2019-06-27 08:57 | XR ---
EXAMINATION TYPE: XR chest 1V portable DATE OF EXAM: 06/27/2019 COMPARISON: 06/26/2019 HISTORY: Ventilatory dependent respiratory failure. TECHNIQUE: Single frontal view of the chest is obtained. FINDINGS: There is increasing confluence of the left basilar opacity and similar blunting of the rig ht costophrenic angle. Diffuse interstitial prominence is redemonstrated. Pulmonary hyperinflation co mpatible with underlying emphysema. Endotracheal and enteric tubes are satisfactory. Multiple old hea led right-sided posterior rib fractures. Cardia mediastinal silhouette is enlarged but overall stable . IMPRESSION: Increasing left pleural effusion, now small and persistent trace right pleural effusion with associated bibasilar airspace disease (likely atelectasis). Chronic interstitial prominence.
--- NOTE | 2019-06-27 09:24 | P.PN ---
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 Presents on 06/20/2019 with respiratory distress. Status post intubation and placed on mechanical ventilation on 06/21/2019 patient is being the ICU and he followed closely by pulmonary/critical care team with Dr. David as well as infectious team. Patient was found to have acute COPD exacerbation, right pneumonia secondary to MRSA and Acetobacter, patient is on antibiotics with Unasyn and IV vancomycin, his also on some Detrol 60 mg, Xarelto 20 mg daily and he is also on CIWA protocol. He is on oral Lasix. He got 1 dose of Lasix yesterday, he is saturating 89% on 70 FiO2, his ABG showing pO2 of 54, as per pulmonary team his mechanical ventilation has been adjusted after that with recommendation to repeat ABG in 4 hours. Today patient has a rash in the upper chest. He has to regular bowel movements 06/27/2019 Patient remains in the ICU, intubated and sedated. He still have thick secretions. Chest x-ray showing interstitial prominence and patient is still spiking fever at 100.8 today. Patient remains on antibiotics with Unasyn and IV vancomycin and infectious and pulmonary team R following the case closely. He remains on mechanical ventilation with FiO2 of 70%, PEEP of 10 and tidal volume of 450 as per management by critical-care team. His creatinine is slightly increased to 1.4 and Sodium 157 and he is on D5 W at 75 mL/h and water flushes with 60 mL via OG tube every 4 hours. Nutritional consult is ordered. Follow-up sodium level. Also patient on IV Lasix for possible fluid overload. Continue with Solu-Medrol 60 mg on Xarelto 20 mg. Also he is on CIWA protocol His upper chest rash started feeling Review of system: N/a Active Medications Generic Name Dose Route Start Last Admin Trade Name Freq PRN Reason Stop Dose Admin Acetaminophen 650 mg 06/23/19 20:15 06/27/19 04:39 Tylenol Tab PO 650 mg Q6HR PRN Administration Fever and/ or Pain Hydrocodone Bitart/Acetaminophen 1 each 06/20/19 14:40 06/20/19 18:25 [place] 7.5-325 PO 1 each Q6H PRN Administration Pain Albuterol Sulfate 2.5 mg 06/20/19 07:12 06/21/19 00:31 Ventolin Nebulized INHALATION 2.5 mg RT-Q4H PRN Administration Dyspnea Albuterol/Ipratropium 3 ml 06/20/19 08:00 06/27/19 07:51 Duoneb 0.5 Mg-3 Mg/3 Ml Soln INHALATION 3 ml RT-QID RENZO Administration Albuterol/Ipratropium 3 ml 06/20/19 14:58 06/27/19 03:54 Duoneb 0.5 Mg-3 Mg/3 Ml Soln INHALATION 3 ml RT-QID PRN Administration Shortness Of Breath Or Wheezing Amiodarone HCl 200 mg 06/21/19 09:00 06/27/19 08:24 Cordarone PO 200 mg DAILY RENZO Administration Atorvastatin Calcium 10 mg 06/20/19 21:00 06/26/19 20:23 Lipitor PO 10 mg HS RENZO Administration Budesonide 1 mg 06/20/19 20:00 06/27/19 07:51 Pulmicort INHALATION 1 mg RT-BID RENZO Administration Chlorhexidine Gluconate 15 ml 06/21/19 09:00 06/27/19 08:24 Peridex MUCOUS MEM 15 ml BID RENZO Administration Diphenhydramine HCl 25 mg 06/26/19 13:29 06/26/19 13:47 Benadryl IVP 25 mg Q6HR PRN Administration Allergy Symptoms Ergocalciferol 50,000 unit 06/21/19 09:00 06/26/19 08:36 Vitamin D2 PO 50,000 unit [id number] RENZO Administration Formoterol Fumarate 20 mcg 06/20/19 20:00 06/27/19 07:51 Perforomist INHALATION 20 mcg RT-BID RENZO Administration Furosemide 40 mg 06/25/19 22:15 06/27/19 08:24 Lasix IV 40 mg Q12HR RENZO Administration Propofol 1,000 mg/ IV Solution 100 mls @ 0 mls/hr 06/21/19 01:45 06/27/19 08:24 IV 65 mcg/kg/min .Q0M RENZO 36.816 mls/hr Administration Protocol Titrate Cisatracurium Besylate 200 mg/ 200 mls @ 4.899 mls/hr 06/21/19 03:15 06/27/19 01:41 Sodium Chloride IV Not Given .Q24H RENZO Protocol 1 MCG/KG/MIN Norepinephrine Bitartrate 4 mg 254 mls @ 15.554 mls/hr 06/21/19 03:15 06/27/19 05:52 / Sodium Chloride IV Not Given .[id number] RENZO Protocol 0.05 MCG/KG/MIN Ampicillin Sodium/Sulbactam 100 mls @ 200 mls/hr 06/24/19 12:45 06/27/19 05:54 Sodium 3 gm/ Sodium Chloride IVPB 200 mls/hr Q6HR RENZO Administration Vancomycin HCl 1,500 mg/ 250 mls @ 125 mls/hr 06/24/19 13:00 06/27/19 01:06 Sodium Chloride IVPB 125 mls/hr Q12H RENZO Administration Insulin Human Regular 100 unit 101 mls @ 0 mls/hr 06/25/19 06:15 06/27/19 09:17 / Sodium Chloride IV 12 mls/hr .Q0M RENZO 12 mls/hr Titration Protocol Per Protocol Dextrose/Water 1,000 mls @ 75 mls/hr 06/26/19 17:30 06/26/19 17:30 Dextrose 5%-Water Iv Soln IV 50 mls/hr .[id number] RENZO Administration Lisinopril 5 mg 06/20/19 15:15 06/27/19 08:24 Zestril PO 5 mg DAILY RENZO Administration Lorazepam 1 mg 06/20/19 20:29 06/25/19 05:27 Ativan IV 1 mg Q2HR PRN Administration CIWA 8 or 9 Lorazepam 1 mg 06/20/19 20:29 Ativan IV Q1HR PRN CIWA 10 to 15 Lorazepam 4 mg 06/25/19 07:13 06/25/19 13:43 Ativan IV 4 mg Q2HR PRN Administration Anxiety Methylprednisolone Sodium Succinate 60 mg 06/20/19 18:00 06/27/19 05:54 Solu-Medrol IV 60 mg Q6HR RENZO Administration Metoprolol Tartrate 50 mg 06/20/19 21:00 01/14/20 08:24 Lopressor PO 50 mg BID RENZO Administration Miscellaneous Information 1 each 06/22/19 05:01 Potassium Per Protocol MISCELLANE DAILY PRN Per Protocol Protocol Miscellaneous Information 1 each 06/24/19 15:46 Potassium Per Protocol MISCELLANE DAILY PRN Per Protocol Protocol Miscellaneous Information 1 each 06/26/19 06:49 Potassium Per Protocol MISCELLANE DAILY PRN Per Protocol Protocol Miscellaneous Information 1 each 06/26/19 10:53 Rx Info: Iv Contrast Was Given MISCELLANE 06/28/19 10:54 DAILY PRN Per Protocol Montelukast Sodium 10 mg 06/20/19 21:00 06/26/19 20:23 Singulair PO 10 mg HS RENZO Administration Morphine Sulfate 2 mg 06/21/19 10:04 06/25/19 11:51 Morphine Sulfate (Inj) IVP 2 mg Q2H PRN Administration Pain/Discomfort Multivitamins 1 each 06/21/19 12:00 06/26/19 11:17 Theragran PO 1 each DAILY@1200 RENZO Administration Naloxone HCl 0.2 mg 06/20/19 22:43 Narcan IV Q2M PRN Opioid Reversal Nicotine 1 patch 06/20/19 15:15 06/27/19 08:24 Habitrol 14mg/24hr Patch TRANSDERM 1 patch DAILY RENZO Administration Pantoprazole Sodium 40 mg 06/21/19 09:00 06/27/19 08:24 Protonix IVP 40 mg DAILY RENZO Administration Paroxetine HCl 40 mg 06/20/19 15:15 06/27/19 08:24 Paxil PO 40 mg DAILY RENZO Administration Polyethylene Glycol 17 gm 06/21/19 09:00 06/27/19 08:02 Miralax PO Not Given DAILY RENZO Quetiapine Fumarate 100 mg 06/20/19 21:00 06/26/19 20:23 Seroquel PO 100 mg HS RENZO Administration Rivaroxaban 20 mg 06/20/19 15:15 06/27/19 08:24 Xarelto PO 20 mg DAILY RENZO Administration Objective - Vital Signs Vital signs: Vital Signs Temp 100.8 F H 06/27/19 08:00 Pulse 83 06/27/19 08:18 Resp 15 06/27/19 08:00 BP 108/65 06/27/19 08:00 Pulse Ox 94 L 06/27/19 08:00 Intake & Output 06/26/19 06/27/19 06/27/19 18:59 06:59 18:59 Intake Total 8662.809 6501.798 102.077 Output Total 1994 2244 Balance -171.860 -214.202 102.077 Weight 94.4 kg 91.2 kg Intake: IV 550 1115 Ampicillin-Sulbactam 3 gm 100 100 In Sodium Chloride 0.9% 100 ml @ 200 mls/hr IVPB Q6HR RENZO Rx#:[id number] Dextrose 5% in Water 1, 725 000 ml @ 75 mls/hr IV . [id number] RENZO Rx#:[id number] Sodium Chloride 0.45% 1, 200 40 000 ml @ 20 mls/hr IV . Q24H RENZO Rx#:[id number] Vancomycin 1,500 mg In 250 250 Sodium Chloride 0.9% 250 ml @ 125 mls/hr IVPB Q12H RENZO Rx#:[id number] Intake, IV Titration 983.140 525.798 102.077 Amount Dextrose 5% in Water 1, 100 50 000 ml @ 75 mls/hr IV . [id number] RENZO Rx#:[id number] Insulin Regular 100 unit 59.400 95.416 7.583 In Sodium Chloride 0.9% 100 ml @ Per Protocol IV .Q0M RENZO Rx#:[id number] Potassium Chloride 10 meq 400 In Water For Injection 1 100ml.bag @ 100 mls/hr IVPB Q1HR RENZO Rx#: [id number] Propofol 1,000 mg In 423.740 380.382 94.494 Empty Bag 1 bag @ Titrate IV .Q0M RENZO Rx#: [id number] Tube Feeding 200 240 Other 90 150 Output: Urine 1994 2244 Other: Voiding Method Indwelling Catheter Indwelling Catheter ABP, PAP, CO, CI - Last Documented Arterial Blood Pressure 122/51 - Exam -GENERAL: The patient is intubated and sedated HEENT: Pupils are round and equally reacting to light. EOMI. No scleral icterus. No conjunctival pallor. Normocephalic, atraumatic. No pharyngeal erythema. No thyromegaly. CARDIOVASCULAR: S1 and S2 present. No murmurs, rubs, or gallops. -PULMONARY: Chest is clear to auscultation, Decreased air entry on both sides w ith scattered wheezing and crepitation especially in the basal lung zones ABDOMEN: Soft, nontender, nondistended, normoactive bowel sounds. No palpable organomegaly. MUSCULOSKELETAL: No joint swelling or deformity. -EXTREMITIES: No cyanosis, clubbing,. Mild bilateral leg edema NEUROLOGICAL: Gross neurological examination did not reveal any focal deficits. Exam is limited by patient condition SKIN: No rashes. no petechiae. - Labs CBC & Chem 7: 06/26/19 05:17 06/27/19 05:21 Labs: Abnormal Lab Results - Last 24 Hours (Table) 06/26/19 06/26/19 06/26/19 Range/Units 10:07 10:43 11:13 ABG pH 7.52 H (7.35-7.45) ABG pCO2 (35-45) mmHg ABG pO2 55 L* (83-108) mmHg ABG HCO3 33 H (21-25) mmol/L ABG Total CO2 34 H (19-24) mmol/L ABG O2 Saturation 89.4 L (94-97) % Sodium (137-145) mmol/L Chloride (98-107) mmol/L Carbon Dioxide (22-30) mmol/L BUN (9-20) mg/dL Creatinine (0.66-1.25) mg/dL Glucose (74-99) mg/dL POC Glucose (mg/dL) 201 H 220 H (75-99) mg/dL Calcium (8.4-10.2) mg/dL C-Reactive Protein (<10.0) mg/L 06/26/19 06/26/19 06/26/19 Range/Units 11:56 13:27 13:40 ABG pH (7.35-7.45) ABG pCO2 52 H (35-45) mmHg ABG pO2 66 L (83-108) mmHg ABG HCO3 33 H (21-25) mmol/L ABG Total CO2 35 H (19-24) mmol/L ABG O2 Saturation 91.3 L (94-97) % Sodium (137-145) mmol/L Chloride (98-107) mmol/L Carbon Dioxide (22-30) mmol/L BUN (9-20) mg/dL Creatinine (0.66-1.25) mg/dL Glucose (74-99) mg/dL POC Glucose (mg/dL) 235 H 170 H (75-99) mg/dL Calcium (8.4-10.2) mg/dL C-Reactive Protein (<10.0) mg/L 06/26/19 06/26/19 06/26/19 Range/Units 13:58 15:01 16:19 ABG pH (7.35-7.45) ABG pCO2 (35-45) mmHg ABG pO2 (83-108) mmHg ABG HCO3 (21-25) mmol/L ABG Total CO2 (19-24) mmol/L ABG O2 Saturation (94-97) % Sodium (137-145) mmol/L Chloride (98-107) mmol/L Carbon Dioxide (22-30) mmol/L BUN (9-20) mg/dL Creatinine (0.66-1.25) mg/dL Glucose (74-99) mg/dL POC Glucose (mg/dL) 167 H 131 H 121 H (75-99) mg/dL Calcium (8.4-10.2) mg/dL C-Reactive Protein (<10.0) mg/L 06/26/19 06/26/19 06/26/19 Range/Units 17:14 17:55 18:59 ABG pH (7.35-7.45) ABG pCO2 (35-45) mmHg ABG pO2 (83-108) mmHg ABG HCO3 (21-25) mmol/L ABG Total CO2 (19-24) mmol/L ABG O2 Saturation (94-97) % Sodium (137-145) mmol/L Chloride (98-107) mmol/L Carbon Dioxide (22-30) mmol/L BUN (9-20) mg/dL Creatinine (0.66-1.25) mg/dL Glucose (74-99) mg/dL POC Glucose (mg/dL) 170 H 204 H 202 H (75-99) mg/dL Calcium (8.4-10.2) mg/dL C-Reactive Protein (<10.0) mg/L 06/26/19 06/26/19 06/26/19 Range/Units 20:01 20:39 20:58 ABG pH (7.35-7.45) ABG pCO2 (35-45) mmHg ABG pO2 (83-108) mmHg ABG HCO3 (21-25) mmol/L ABG Total CO2 (19-24) mmol/L ABG O2 Saturation (94-97) % Sodium 156 H (137-145) mmol/L Chloride 117 H (98-107) mmol/L Carbon Dioxide 34 H (22-30) mmol/L BUN (9-20) mg/dL Creatinine (0.66-1.25) mg/dL Glucose (74-99) mg/dL POC Glucose (mg/dL) 192 H 164 H (75-99) mg/dL Calcium (8.4-10.2) mg/dL C-Reactive Protein (<10.0) mg/L 06/26/19 06/26/19 06/26/19 Range/Units 21:55 22:55 23:24 ABG pH (7.35-7.45) ABG pCO2 (35-45) mmHg ABG pO2 (83-108) mmHg ABG HCO3 (21-25) mmol/L ABG Total CO2 (19-24) mmol/L ABG O2 Saturation (94-97) % Sodium (137-145) mmol/L Chloride (98-107) mmol/L Carbon Dioxide (22-30) mmol/L BUN (9-20) mg/dL Creatinine (0.66-1.25) mg/dL Glucose (74-99) mg/dL POC Glucose (mg/dL) 128 H 157 H 172 H (75-99) mg/dL Calcium (8.4-10.2) mg/dL C-Reactive Protein (<10.0) mg/L 06/26/19 06/27/19 06/27/19 Range/Units 23:57 01:08 01:57 ABG pH (7.35-7.45) ABG pCO2 (35-45) mmHg ABG pO2 (83-108) mmHg ABG HCO3 (21-25) mmol/L ABG Total CO2 (19-24) mmol/L ABG O2 Saturation (94-97) % Sodium (137-145) mmol/L Chloride (98-107) mmol/L Carbon Dioxide (22-30) mmol/L BUN (9-20) mg/dL Creatinine (0.66-1.25) mg/dL Glucose (74-99) mg/dL POC Glucose (mg/dL) 172 H 138 H 129 H (75-99) mg/dL Calcium (8.4-10.2) mg/dL C-Reactive Protein (<10.0) mg/L 06/27/19 06/27/19 06/27/19 Range/Units 02:51 03:44 04:57 ABG pH (7.35-7.45) ABG pCO2 (35-45) mmHg ABG pO2 (83-108) mmHg ABG HCO3 (21-25) mmol/L ABG Total CO2 (19-24) mmol/L ABG O2 Saturation (94-97) % Sodium (137-145) mmol/L Chloride (98-107) mmol/L Carbon Dioxide (22-30) mmol/L BUN (9-20) mg/dL Creatinine (0.66-1.25) mg/dL Glucose (74-99) mg/dL POC Glucose (mg/dL) 153 H 164 H 154 H (75-99) mg/dL Calcium (8.4-10.2) mg/dL C-Reactive Protein (<10.0) mg/L 06/27/19 06/27/19 06/27/19 Range/Units 05:21 05:53 06:02 ABG pH (7.35-7.45) ABG pCO2 52 H (35-45) mmHg ABG pO2 80 L (83-108) mmHg ABG HCO3 34 H (21-25) mmol/L ABG Total CO2 36 H (19-24) mmol/L ABG O2 Saturation (94-97) % Sodium 157 H (137-145) mmol/L Chloride 119 H (98-107) mmol/L Carbon Dioxide 36 H (22-30) mmol/L BUN 70 H (9-20) mg/dL Creatinine 1.46 H (0.66-1.25) mg/dL Glucose 150 H (74-99) mg/dL POC Glucose (mg/dL) 145 H (75-99) mg/dL Calcium 8.3 L (8.4-10.2) mg/dL C-Reactive Protein 205.6 H (<10.0) mg/L 06/27/19 06/27/19 Range/Units 06:51 07:48 ABG pH (7.35-7.45) ABG pCO2 (35-45) mmHg ABG pO2 (83-108) mmHg ABG HCO3 (21-25) mmol/L ABG Total CO2 (19-24) mmol/L ABG O2 Saturation (94-97) % Sodium (137-145) mmol/L Chloride (98-107) mmol/L Carbon Dioxide (22-30) mmol/L BUN (9-20) mg/dL Creatinine (0.66-1.25) mg/dL Glucose (74-99) mg/dL POC Glucose (mg/dL) 144 H 140 H (75-99) mg/dL Calcium (8.4-10.2) mg/dL C-Reactive Protein (<10.0) mg/L Microbiology - Last 24 Hours (Table) 06/20/19 22:09 Blood Culture - Final Blood No Growth after 144 hours 06/23/19 19:30 Blood Culture - Preliminary Blood No Growth after 72 hours 06/20/19 18:30 Blood Culture - Final Blood No Growth after 144 hours Assessment and Plan Assessment: Right pneumonia secondary to MRSA and Acinetobacter Acute tracheobronchitis Acute hypoxic respiratory failure Acute COPD exacerbation Bilateral pleural effusion, right more than left Erythematous rash in the upper chest mild Acute kidney injury Right thyroid nodule Pulmonary artery hypertension Acute kidney injury, present on admission. Resolved Hypernatremia History of PE on Xarelto Chronic nonischemic cardiomyopathy with ejection fraction 30-35% Chronic A. fib Hypothyroidism Chronic alcohol abuse Nicotine dependence Hyperlipidemia Hypertension History of gravis disease History of squamous cell cancer of the skin with removal Plan: This is a 54 years old male who is mechanically ventilated. Patient is followed closely by infectious disease and pulmonary/critical care teams and follow-up recommendation. Continue with antibiotics as per ID team, continue with steroids, continue with his alcohol withdrawal treatment, continue with CIWA protocol. Continue with D5W and water flushes follow-up sodium level Labs and medication were reviewed.. Continue same treatment. Continue with symptomatic treatment. Resume home medication. Monitor lytes and vitals. DVT and GI prophylaxis. Further recommendations of the clinical course of the patient DVT prophylaxis: Xarelto GI Prophylaxis: PPI Prognosis is guarded
[2019-06-27 09:28] LABS: Glucose,Whole Blood 210 mg/dL (75-99)
[2019-06-27 10:26] LABS: Glucose,Whole Blood 209 mg/dL (75-99)
[2019-06-27 11:14] LABS: Glucose,Whole Blood 233 mg/dL (75-99)
[2019-06-27 12:10] LABS: Glucose,Whole Blood 219 mg/dL (75-99)
[2019-06-27] MEDS: INSULIN REGULAR 100 UNIT in SODIUM CHLORIDE 0.9% 100 ML IV SCH ×2 (12:19→20:29)
[2019-06-27] MEDS: MULTIVITAMINS, THERA 1 EACH TAB PO SCH (12:19)
[2019-06-27 13:07] LABS: Glucose,Whole Blood 169 mg/dL (75-99)
[2019-06-27 13:45] LABS: Calcium 8.2 mg/dL (8.4-10.2); Potassium 3.7 mmol/L (3.5-5.1)
--- NOTE | 2019-06-27 13:46 | P.PN ---
Subjective Progress Note Date: 06/27/19 Principal diagnosis: Polymicrobial pneumonia associated with Acinetobacter and Staph Acute hypoxic and hypercapnic respiratory failure Acute COPD exacerbation Mild hyper natremia Fluid overload Cardiomyopathy nonischemic baseline ejection fraction 35%, chronic systolic heart failure Chronic atrial flutter fibrillation History of fall with multiple rib fracture pneumothorax History of extensive smoking and nicotine use 06/27/2019, patient seen eval examined during the rounds labs reviewed medications reviewed sodium level is still high we'll increase the free water, patient remains on SIMV mode with pressure support and PEEP of 10 FiO2 70% ABGs are stable, thick pulmonary secretions are present, culture reports are reviewed, patient remains on broad-spectrum antibiotics, to feed as tolerated well, due to elevated sugar patient is on insulin drip, remains on propofol, once FiO2 improve will restart weaning critical care time 35 minutes 06/26/2019, patient seen eval examined during the rounds went setting have been adjusted patient is switched to SIMV with pressure support he seems to be doing with better with this setting PEEP was increased to 10 FiO2 is improved pH has improved however patient has hypernatremia she has been started on D5, computed tomography scan of the head as well as the chest has been performed which is reviewed, extensive emphysema and bibasilar infiltrates are seen, patient remains on propofol drip off of vasopressors now, labs reviewed medications reviewed care plan discussed with Her family members at length, once oxygenation is improved gradually will wean down the ventilator setting, 06/25/2019, patient seen eval examined during the rounds labs reviewed medications reviewed patient continued to be hypoxic today is for the first time she is -730 mL his urine output is fairly adequate about 50 60/h but has been declining, he is on 40 mg of IV Lasix will increase it to twice a day, his NG tube is changed OG tube, the cellulitis that he has on neck and upper chest seems to be slowly progressing, patient has been switched to antibiotics currently on ampicillin along with IV vancomycin, his went setting includes assist control rate of 16 tidal volume of 500 PEEP has been escalated to 8, FiO2 is 70% with that saturation is 90 urine 94%, he is off of vasopressors, his cultures are growing Acinetobacter and MRSA in the sputum, he is tolerating tube feed very well, patient is being replaced on hypokalemia 06/24/2019, patient seen and evaluated examined during the rounds labs reviewed medications reviewed patient came back positive for Acinetobacter and Staph in the sputum, he remains hemodynamically stable off of vasopressors, however he is positive almost 10-15 L, patient has a good response with Lasix given this morning we'll put on a daily basis also patient has mild hypernatremia S patient is tolerating tube feed will DC the extra IV fluids, we'll continue to titrate propofol down as tolerated plan to do weaning tomorrow, labs reviewed medications reviewed care plan discussed with the staff at length FiO2 is slightly increased to 60% and likely related to fluid overload 06/23/2019, patient seen eval examined during the rounds patient is off of vasopressors off of the medical paralysis however remains on the propofol 70 mics, patient is deeply sedated remains on assist control rate of 16 tidal volume of 505 of PEEP and FiO2 down to 40%, chest x-ray reviewed overall remains stable patient is being treated for bilateral pneumonia, tomorrow we'll taper down the sedation and see if a CPAP of 5 trial with pressure support can be done continued to feed for now repeat labs and x-ray tomorrow 06/22/2019, patient seen eval reexamined during the rounds, Nimbex drip have been tapered and DC'd, patient remains on full ventilator support, fall was attempted to wean down but patient becomes anxious and agitated he does intermittently open eyes, he remains on assist control mode rate of 16 and tidal volume of 500+5 of PEEP and 50% oxygen, white cell count is 4000 with stable hemoglobin of 710.6, arterial blood gases on above vent setting include pH is 7.32 pCO2 30 and pO2 109 FiO2 subsequently decreased to 40%, order have been placed restart the tube feed patient remains on vancomycin and high-dose Rocephin, patient has been evaluated by infectious disease services the pretest probability of the meningitis is low but he remains on emperic therapy, will wean down the propofol further and reassess the mental status and try to wean as tolerated, chest x-ray showed right lower lobe pneumonia and a small effusion 06/21/2019, patient seen eval reexamined during the rounds events from earlier this morning noted patient developed respiratory distress and severe metabolic acidosis likely related to acute COPD exacerbation and severe sepsis from unknown source, patient was intubated due to severe agitation patient has been started on medical paralysis we'll start tapering it down now currently patient is 4 out of 4 will cut it down to half and gradually taper and DC it continue propofol for sedation, supplemental it with Ativan and morphine, chest x-ray from earlier this morning reviewed prominent interstitium has been noted, lacking lactic acid noted to have improved, patient had been aggressively resuscitated with crystalloids, blood pressure is normal the levo fed is being titrated down currently he is on 2 mics, when setting includes assist control rate of 16 and tidal volume of 500 PEEP of 5 and FiO2 is down to 50%, 10 cultures have been done, flu studies noted to be negative, Rocephin is 1 g along with Zithromax we will increase the dose of Rocephin to 2 g and add vancomycin as well for now, prior to intubation patient was complaining of stiffness in the upper extremity head and neck area, spinal tap couldn't be performed as patient is on blood thinners, likelihood of meningitis however is low, labs reviewed medications reviewed critical care time 35 minutes This is a 54-year-old male who was seen evaluated examined in the emergency department this morning he has been not feeling well for 2 weeks of progressive cough shortness of breath associated with purulent sputum production came into emergency department for further evaluation chest x-ray has been negative for any acute process, overall a poor historian he has a long-standing history of cardiovascular problems including chronic atrial fibrillation and flutter history of the chronic systolic heart failure baseline ejection fraction of 30% it is thought to be nonischemic cardiomyopathy, patient has a history of Graves' disease pulmonary embolism thyroid disorder history of falls with the pneumothorax and hemothorax and multiple refracture hospitalized back in 2017 on arrival he was noted to have a low-grade fever now resolved, he is being treated with broad-spectrum antibiotics, bronchodilators as well as IV steroids Objective - Vital Signs Vital signs: Vital Signs Temp 100.8 F H 06/27/19 08:00 Pulse 76 06/27/19 12:03 Resp 14 06/27/19 11:00 BP 110/60 06/27/19 11:00 Pulse Ox 95 06/27/19 11:00 Intake & Output 06/26/19 06/27/19 06/27/19 18:59 06:59 18:59 Intake Total 9502.512 3404.798 682.511 Output Total 1994 9327 1250 Balance -171.860 -214.202 -567.489 Weight 94.4 kg 91.2 kg Intake: IV 550 1115 300 Ampicillin-Sulbactam 3 gm 100 100 In Sodium Chloride 0.9% 100 ml @ 200 mls/hr IVPB Q6HR [facility] Rx#:[id number] Dextrose 5% in Water 1, 725 300 000 ml @ 75 mls/hr IV . [id number] [facility] Rx#:[id number] Sodium Chloride 0.45% 1, 200 40 000 ml @ 20 mls/hr IV . Q24H [facility] Rx#:[id number] Vancomycin 1,500 mg In 250 250 Sodium Chloride 0.9% 250 ml @ 125 mls/hr IVPB Q12H [facility] Rx#:[id number] Intake, IV Titration 983.140 525.798 242.511 Amount Dextrose 5% in Water 1, 100 50 000 ml @ 75 mls/hr IV . [id number] [facility] Rx#:[id number] Insulin Regular 100 unit 59.400 95.416 48.017 In Sodium Chloride 0.9% 100 ml @ Per Protocol IV .Q0M [facility] Rx#:[id number] Potassium Chloride 10 meq 400 In Water For Injection 1 100ml.bag @ 100 mls/hr IVPB Q1HR [facility] Rx#: [id number] Propofol 1,000 mg In 423.740 380.382 194.494 Empty Bag 1 bag @ Titrate IV .Q0M [facility] Rx#: [id number] Tube Feeding 200 240 80 Other 90 150 60 Output: Urine 1994 2245 1250 Other: Voiding Method Indwelling Catheter Indwelling Catheter Indwelling Catheter ABP, PAP, CO, CI - Last Documented Arterial Blood Pressure 122/51 - Exam - Constitutional General appearance: average body habitus, stable currently with medical paralysis and propofol - EENT Eyes: anicteric sclerae, EOMI, PERRLA, poor dentition, normal appearance Ears: bilateral: normal - Neck Neck: normal ROM, diffuse rash which is erythematous involving the neck and upper chest and shoulders Carotids: bilateral: upstroke normal Thyroid: bilateral: normal size - Respiratory Respiratory: bilateral: diminished, wheezing, negative: CTA, - Cardiovascular Rhythm: regular Heart sounds: normal: S1, S2 - Gastrointestinal General gastrointestinal: normal bowel sounds, soft - Integumentary Integumentary: normal turgor - Neurologic Cannot assess being on ventilator - Musculoskeletal Cannot assess being on ventilator - Psychiatric Psychiatric: Cannot assess being on ventilator - Labs CBC & Chem 7: 06/26/19 05:17 06/27/19 05:21 Labs: Abnormal Lab Results - Last 24 Hours (Table) 06/26/19 06/26/19 06/26/19 Range/Units 13:40 13:58 15:01 ABG pCO2 52 H (35-45) mmHg ABG pO2 66 L (83-108) mmHg ABG HCO3 33 H (21-25) mmol/L ABG Total CO2 35 H (19-24) mmol/L ABG O2 Saturation 91.3 L (94-97) % Sodium (137-145) mmol/L Chloride (98-107) mmol/L Carbon Dioxide (22-30) mmol/L BUN (9-20) mg/dL Creatinine (0.66-1.25) mg/dL Glucose (74-99) mg/dL POC Glucose (mg/dL) 167 H 131 H (75-99) mg/dL Calcium (8.4-10.2) mg/dL C-Reactive Protein (<10.0) mg/L 06/26/19 06/26/19 06/26/19 Range/Units 16:19 17:14 17:55 ABG pCO2 (35-45) mmHg ABG pO2 (83-108) mmHg ABG HCO3 (21-25) mmol/L ABG Total CO2 (19-24) mmol/L ABG O2 Saturation (94-97) % Sodium (137-145) mmol/L Chloride (98-107) mmol/L Carbon Dioxide (22-30) mmol/L BUN (9-20) mg/dL Creatinine (0.66-1.25) mg/dL Glucose (74-99) mg/dL POC Glucose (mg/dL) 121 H 170 H 204 H (75-99) mg/dL Calcium (8.4-10.2) mg/dL C-Reactive Protein (<10.0) mg/L 06/26/19 06/26/19 06/26/19 Range/Units 18:59 20:01 20:39 ABG pCO2 (35-45) mmHg ABG pO2 (83-108) mmHg ABG HCO3 (21-25) mmol/L ABG Total CO2 (19-24) mmol/L ABG O2 Saturation (94-97) % Sodium 156 H (137-145) mmol/L Chloride 117 H (98-107) mmol/L Carbon Dioxide 34 H (22-30) mmol/L BUN (9-20) mg/dL Creatinine (0.66-1.25) mg/dL Glucose (74-99) mg/dL POC Glucose (mg/dL) 202 H 192 H (75-99) mg/dL Calcium (8.4-10.2) mg/dL C-Reactive Protein (<10.0) mg/L 06/26/19 06/26/19 06/26/19 Range/Units 20:58 21:55 22:55 ABG pCO2 (35-45) mmHg ABG pO2 (83-108) mmHg ABG HCO3 (21-25) mmol/L ABG Total CO2 (19-24) mmol/L ABG O2 Saturation (94-97) % Sodium (137-145) mmol/L Chloride (98-107) mmol/L Carbon Dioxide (22-30) mmol/L BUN (9-20) mg/dL Creatinine (0.66-1.25) mg/dL Glucose (74-99) mg/dL POC Glucose (mg/dL) 164 H 128 H 157 H (75-99) mg/dL Calcium (8.4-10.2) mg/dL C-Reactive Protein (<10.0) mg/L 06/26/19 06/26/19 06/27/19 Range/Units 23:24 23:57 01:08 ABG pCO2 (35-45) mmHg ABG pO2 (83-108) mmHg ABG HCO3 (21-25) mmol/L ABG Total CO2 (19-24) mmol/L ABG O2 Saturation (94-97) % Sodium (137-145) mmol/L Chloride (98-107) mmol/L Carbon Dioxide (22-30) mmol/L BUN (9-20) mg/dL Creatinine (0.66-1.25) mg/dL Glucose (74-99) mg/dL POC Glucose (mg/dL) 172 H 172 H 138 H (75-99) mg/dL Calcium (8.4-10.2) mg/dL C-Reactive Protein (<10.0) mg/L 06/27/19 06/27/19 06/27/19 Range/Units 01:57 02:51 03:44 ABG pCO2 (35-45) mmHg ABG pO2 (83-108) mmHg ABG HCO3 (21-25) mmol/L ABG Total CO2 (19-24) mmol/L ABG O2 Saturation (94-97) % Sodium (137-145) mmol/L Chloride (98-107) mmol/L Carbon Dioxide (22-30) mmol/L BUN (9-20) mg/dL Creatinine (0.66-1.25) mg/dL Glucose (74-99) mg/dL POC Glucose (mg/dL) 129 H 153 H 164 H (75-99) mg/dL Calcium (8.4-10.2) mg/dL C-Reactive Protein (<10.0) mg/L 06/27/19 06/27/19 06/27/19 Range/Units 04:57 05:21 05:53 ABG pCO2 52 H (35-45) mmHg ABG pO2 80 L (83-108) mmHg ABG HCO3 34 H (21-25) mmol/L ABG Total CO2 36 H (19-24) mmol/L ABG O2 Saturation (94-97) % Sodium 157 H (137-145) mmol/L Chloride 119 H (98-107) mmol/L Carbon Dioxide 36 H (22-30) mmol/L BUN 70 H (9-20) mg/dL Creatinine 1.46 H (0.66-1.25) mg/dL Glucose 150 H (74-99) mg/dL POC Glucose (mg/dL) 154 H (75-99) mg/dL Calcium 8.3 L (8.4-10.2) mg/dL C-Reactive Protein 205.6 H (<10.0) mg/L 06/27/19 06/27/19 06/27/19 Range/Units 06:02 06:51 07:48 ABG pCO2 (35-45) mmHg ABG pO2 (83-108) mmHg ABG HCO3 (21-25) mmol/L ABG Total CO2 (19-24) mmol/L ABG O2 Saturation (94-97) % Sodium (137-145) mmol/L Chloride (98-107) mmol/L Carbon Dioxide (22-30) mmol/L BUN (9-20) mg/dL Creatinine (0.66-1.25) mg/dL Glucose (74-99) mg/dL POC Glucose (mg/dL) 145 H 144 H 140 H (75-99) mg/dL Calcium (8.4-10.2) mg/dL C-Reactive Protein (<10.0) mg/L 06/27/19 06/27/19 06/27/19 Range/Units 09:16 10:15 11:03 ABG pCO2 (35-45) mmHg ABG pO2 (83-108) mmHg ABG HCO3 (21-25) mmol/L ABG Total CO2 (19-24) mmol/L ABG O2 Saturation (94-97) % Sodium (137-145) mmol/L Chloride (98-107) mmol/L Carbon Dioxide (22-30) mmol/L BUN (9-20) mg/dL Creatinine (0.66-1.25) mg/dL Glucose (74-99) mg/dL POC Glucose (mg/dL) 210 H 209 H 233 H (75-99) mg/dL Calcium (8.4-10.2) mg/dL C-Reactive Protein (<10.0) mg/L 06/27/19 06/27/19 Range/Units 11:59 12:56 ABG pCO2 (35-45) mmHg ABG pO2 (83-108) mmHg ABG HCO3 (21-25) mmol/L ABG Total CO2 (19-24) mmol/L ABG O2 Saturation (94-97) % Sodium (137-145) mmol/L Chloride (98-107) mmol/L Carbon Dioxide (22-30) mmol/L BUN (9-20) mg/dL Creatinine (0.66-1.25) mg/dL Glucose (74-99) mg/dL POC Glucose (mg/dL) 219 H 169 H (75-99) mg/dL Calcium (8.4-10.2) mg/dL C-Reactive Protein (<10.0) mg/L Microbiology - Last 24 Hours (Table) 06/20/19 22:09 Blood Culture - Final Blood No Growth after 144 hours 06/23/19 19:30 Blood Culture - Preliminary Blood No Growth after 72 hours 06/20/19 18:30 Blood Culture - Final Blood No Growth after 144 hours Assessment and Plan Assessment: Bilateral lower lobe pneumonia due to Acinetobacter and MRSA in the sputum Small right-sided pleural effusion Fluid overload Hyper natremia Acute hypoxic and hypercapnic respiratory failure Severe sepsis from above Diffuse rash of the neck and upper shoulder Acute COPD exacerbation Purulent tracheobronchitis Cardiomyopathy nonischemic baseline ejection fraction 35%, chronic systolic heart failure Chronic atrial flutter fibrillation on Xarelto History of fall with multiple rib fracture pneumothorax History of extensive smoking and nicotine use Plan: Overall plan includes Taper sedation, get rid of propofol as tolerated, will do CPAP and pressure support once oxygenation improved, for the time being patient is on SIMV with pressure support anticoagulation to be continued Breathing treatment D5 for hyper natremia IV steroids Increase free water to 2 50 mL every 6 hourly Continue to feed via OG tube Broad-spectrum antibiotics, Monitor clinical course closely Further recommendations pending plan of care as per clinical response of the patient Continue Lasix to 40 mg IV every 12 Time with Patient: Greater than 30
[2019-06-27] MEDS: DEXTROSE 5% IN WATER 1,000 ML IV SCH ×2 (14:10→14:15)
[2019-06-27 14:18] LABS: Glucose,Whole Blood 110 mg/dL (75-99)
[2019-06-27 15:22] LABS: Glucose,Whole Blood 129 mg/dL (75-99)
[2019-06-27 16:13] LABS: Glucose,Whole Blood 174 mg/dL (75-99)
[2019-06-27 17:14] LABS: Glucose,Whole Blood 184 mg/dL (75-99)
[2019-06-27 18:07] LABS: Glucose,Whole Blood 225 mg/dL (75-99)
--- NOTE | 2019-06-27 18:54 | PN ---
PROGRESS NOTE DATE OF SERVICE: 06/27/2019. REASON FOR FOLLOWUP: Acinetobacter and MRSA pneumonia. INTERVAL HISTORY: The patient did spike a fever this morning around 4 of 101.5. Afebrile subsequently. The patient is hemodynamically stable. FiO2 is currently at 70%. No significant purulent secretions through the ET reported by the nursing staff. Patient remains intubated on the vent, unable to provide any history. PHYSICAL EXAMINATION: Blood pressure 109/60 with a pulse of 71, temperature 99.1. He is 96% on 70% FiO2. General description is a middle-aged male lying in bed in no distress. HEENT EXAMINATION: Pallor. The patient is orally intubated. The upper chest wall erythema has decreased in intensity. LUNGS: Unlabored breathing. Decreased breath sounds in the bases. HEART: S1, S2. Regular rate and rhythm. ABDOMEN: Soft. No tenderness. LABS: BUN of 67, creatinine 1.40. Blood culture has been negative. White count normal as of yesterday, 8.0. DIAGNOSTIC IMPRESSION AND PLAN: Patient with acute respiratory failure which is likely multifactorial in this patient who did have a possible component of pneumonia. Sputum has been positive for Acinetobacter and MRSA. The patient is covered with Unasyn and vancomycin; to continue. Will monitor his clinical course closely. Family at the bedside. Questions were answered. MMODL / IJN: [id number] /
[2019-06-27 19:00] LABS: Glucose,Whole Blood 212 mg/dL (75-99)
[2019-06-27 20:15] LABS: Glucose,Whole Blood 187 mg/dL (75-99)
[2019-06-27 21:15] LABS: Glucose,Whole Blood 150 mg/dL (75-99)
[2019-06-27] MEDS: ATORVASTATIN 10 MG TAB PO SCH (21:56)
[2019-06-27] MEDS: QUEtiapine 100 MG TAB PO SCH (21:57)
[2019-06-27] MEDS: MONTELUKAST 10 MG TAB PO SCH (21:58)
[2019-06-27 22:12] LABS: Glucose,Whole Blood 121 mg/dL (75-99)
[2019-06-27 23:37] LABS: Glucose,Whole Blood 136 mg/dL (75-99)
[2019-06-28 00:12] LABS: Glucose,Whole Blood 201 mg/dL (75-99)
[2019-06-28] MEDS: NOREPINEPHRINE 4 MG in SODIUM CHLORIDE 0.9% 250 ML IV SCH ×3 (00:39→17:41)
[2019-06-28 00:42] LABS: Glucose,Whole Blood 222 mg/dL (75-99)
[2019-06-28] MEDS: AMPICILLIN-SULBACTAM 3 GM in SODIUM CHLORIDE 0.9% 100 ML IVPB SCH ×4 (00:46→17:44)
[2019-06-28] MEDS: methylPREDNISolone SOD SUCCI 125 MG/2 ML VIAL IV SCH ×4 (00:46→17:44)
[2019-06-28] MEDS: VANCOMYCIN 1,500 MG in SODIUM CHLORIDE 0.9% 250 ML IVPB SCH ×2 (00:46→13:16)
[2019-06-28 01:09] LABS: Glucose,Whole Blood 258 mg/dL (75-99)
[2019-06-28] MEDS: DILTIAZEM 125 MG in SODIUM CHLORIDE 0.9% 100 ML IV SCH ×3 (01:48→21:48)
[2019-06-28 02:14] LABS: Glucose,Whole Blood 302 mg/dL (75-99)
[2019-06-28] MEDS: PROPOFOL 1,000 MG in EMPTY BAG 1 BAG IV SCH ×7 (02:34→22:54)
[2019-06-28] MEDS: INSULIN REGULAR 100 UNIT in SODIUM CHLORIDE 0.9% 100 ML IV SCH ×3 (03:19→17:40)
[2019-06-28 03:24] LABS: Glucose,Whole Blood 262 mg/dL (75-99)
[2019-06-28 04:10] LABS: Glucose,Whole Blood 248 mg/dL (75-99)
[2019-06-28 04:37] LABS: HCT 31.2 % (39.0-53.0); HGB 9.9 gm/dL (13.0-17.5); Hypochromasia Marked; MCH 31.7 pg (25.0-35.0); MCHC 31.6 g/dL (31.0-37.0); MCV 100.5 fL (80.0-100.0); Macrocytosis Slight; Mean Platelet Volume 9.7; RBC 3.11 m/uL (4.30-5.90); RDW 14.3 % (11.5-15.5); WBC 12.9 k/uL (3.8-10.6)
[2019-06-28 04:43] LABS: Platelet Count 188 k/uL (150-450)
[2019-06-28 04:52] LABS: Calcium 7.8 mg/dL (8.4-10.2); Magnesium 2.7 mg/dL (1.6-2.3); Potassium 3.7 mmol/L (3.5-5.1)
[2019-06-28] MEDS ORDERED: Potassium Replacement Protocol 1 EACH MISC MISCELLANE PRN (05:01)
[2019-06-28 05:24] LABS: Glucose,Whole Blood 163 mg/dL (75-99)
[2019-06-28 05:32] LABS: Lymphocytes # (M) 2.19 k/uL (1.0-4.8); Monocytes # (M) 0.26 k/uL (0-1.0); Neutrophils # (M) 10.45 k/uL (1.3-7.7); Neutrophils % (M) 81 %; Nucleated Red Blood Cells 0 /100 WBC (0-0); Total Cells Counted 100
[2019-06-28 05:39] LABS: ABG Base Excess 6.9 mmol/L; ABG HCO3 33 mmol/L (21-25); ABG Oxygen Saturation 93.8 % (94-97); ABG PCO2 60 mmHg (35-45); ABG PH 7.34 (7.35-7.45); ABG PO2 79 mmHg (83-108); ABG TCO2 35 mmol/L (19-24)
[2019-06-28 05:45] LABS: Allen Test Performed? no
[2019-06-28] MEDS: CISATRACURIUM 200 MG in SODIUM CHLORIDE 0.9% 180 ML IV SCH (05:49)
[2019-06-28] MEDS ORDERED: POTASSIUM BICARBONATE/CIT AC 20 MEQ TABLET.EFF NG-TUBE SCH (06:00)
[2019-06-28 06:35] LABS: Glucose,Whole Blood 109 mg/dL (75-99)
[2019-06-28] MEDS: DEXTROSE 5% IN WATER 1,000 ML IV SCH ×5 (07:12→22:26)
[2019-06-28 07:16] LABS: Glucose,Whole Blood 112 mg/dL (75-99)
--- NOTE | 2019-06-28 07:25 | XR ---
EXAMINATION TYPE: XR chest 1V portable DATE OF EXAM: 06/28/2019 COMPARISON: 06/27/2019 INDICATION: Previous abnormal chest TECHNIQUE: Single frontal view of the chest is obtained. FINDINGS: The heart size is normal. The pulmonary vasculature is normal. Bibasilar infiltrates are present. This is improving from comparison. Endotracheal tube tip is above the tank. Nasogastric tube transverses the thorax. IMPRESSION: 1. Improving bibasilar infiltrates. Continued follow-up is recommended. 2. Catheters discussed above.
[2019-06-28 08:07] LABS: Glucose,Whole Blood 138 mg/dL (75-99)
[2019-06-28] MEDS: BUDESONIDE 1 MG/2 ML NEBU INHALATION SCH ×2 (08:20→19:39)
[2019-06-28] MEDS: IPRATROPIUM-ALBUTEROL 3 ML NEB INHALATION SCH ×4 (08:20→19:39)
[2019-06-28] MEDS: FORMOTEROL FUMARATE 20 MCG/2 ML NEBU INHALATION SCH ×2 (08:20→19:39)
[2019-06-28] MEDS: ERGOCALCIFEROL 50,000 UNIT CAP PO SCH (08:30)
[2019-06-28] MEDS: POLYETHYLENE GLYCOL 3350 17 GM POWD.PACK PO SCH (08:32)
[2019-06-28] MEDS: FUROSEMIDE 10 MG/ML 4 ML VIAL IV SCH ×2 (08:38→21:20)
[2019-06-28] MEDS: CHLORHEXIDINE GLUCONATE 15 ML CUP MUCOUS MEM SCH ×2 (08:38→21:20)
[2019-06-28] MEDS: NICOTINE 14MG/24HR PATCH TRANSDERM SCH (08:38)
[2019-06-28] MEDS: METOPROLOL TARTRATE 50 MG TAB PO SCH ×2 (08:39→21:20)
[2019-06-28] MEDS: PANTOPRAZOLE 40 MG/10 ML VIAL IVP SCH (08:39)
[2019-06-28] MEDS: AMIODARONE 200 MG TAB PO SCH (08:39)
[2019-06-28] MEDS: PARoxetine 20 MG TAB PO SCH (08:39)
[2019-06-28] MEDS: LISINOPRIL 5 MG TAB PO SCH (08:40)
[2019-06-28] MEDS: RIVAROXABAN 20 MG TAB PO SCH (08:44)
[2019-06-28 09:21] LABS: Glucose,Whole Blood 205 mg/dL (75-99)
[2019-06-28] MEDS ORDERED: SODIUM CHLORIDE 0.9% 500 ML 500 ML IV ONE (09:37)
[2019-06-28 10:04] LABS: Glucose,Whole Blood 232 mg/dL (75-99)
--- NOTE | 2019-06-28 11:04 | P.PN ---
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 Presents on 06/20/2019 with respiratory distress. Status post intubation and placed on mechanical ventilation on 06/21/2019 patient is being the ICU and he followed closely by pulmonary/critical care team with Dr. David as well as infectious team. Patient was found to have acute COPD exacerbation, right pneumonia secondary to MRSA and Acetobacter, patient is on antibiotics with Unasyn and IV vancomycin, his also on some Detrol 60 mg, Xarelto 20 mg daily and he is also on CIWA protocol. He is on oral Lasix. He got 1 dose of Lasix yesterday, he is saturating 89% on 70 FiO2, his ABG showing pO2 of 54, as per pulmonary team his mechanical ventilation has been adjusted after that with recommendation to repeat ABG in 4 hours. Today patient has a rash in the upper chest. He has to regular bowel movements 06/27/2019 Patient remains in the ICU, intubated and sedated. He still have thick secretions. Chest x-ray showing interstitial prominence and patient is still spiking fever at 100.8 today. Patient remains on antibiotics with Unasyn and IV vancomycin and infectious and pulmonary team R following the case closely. He remains on mechanical ventilation with FiO2 of 70%, PEEP of 10 and tidal volume of 450 as per management by critical-care team. His creatinine is slightly increased to 1.4 and Sodium 157 and he is on D5 W at 75 mL/h and water flushes with 60 mL via OG tube every 4 hours. Nutritional consult is ordered. Follow-up sodium level. Also patient on IV Lasix for possible fluid overload. Continue with Solu-Medrol 60 mg on Xarelto 20 mg. Also he is on CIWA protocol His upper chest rash started feeling 06/28/2019 Patient remains in the ICU, he developed A. fib yesterday and hypertension. Patient was started on amiodarone drip and he needed small dose of Levophed, since this morning his Levophed was stopped, his blood pressure was low normal and holding up. However he remains on admission down drip. Patient has history of cardiomyopathy and ejection fraction of 30-35% and he follow-up with Dr. Harper. Without the consult cardiology team. Patient also planned to go for bronchoscopy today at PICC line placement. There is a small bolus of 210 mL yesterday. His WBC is 12.9k, sodium is improving to 150. Creatinine back to normal at 1.1. Sugar is 200-300.he is on insulin but his labile under going to switch him to insulin sliding scale with close monitoring. Yesterday he still had fever at 100-101.5. He remains on Unasyn and IV vancomycin. He is also on IV Lasix 40 mg twice daily, he is on CIWA protocol ulcers on steroids on Medrol 60 mg in D5 W at 100 mL per hour Review of system: N/a Active Medications Generic Name Dose Route Start Last Admin Trade Name Freq PRN Reason Stop Dose Admin Acetaminophen 650 mg 06/23/19 20:15 06/27/19 04:39 Tylenol Tab PO 650 mg Q6HR PRN Administration Fever and/ or Pain Hydrocodone Bitart/Acetaminophen 1 each 06/20/19 14:40 06/20/19 18:25 [place] 7.5-325 PO 1 each Q6H PRN Administration Pain Albuterol Sulfate 2.5 mg 06/20/19 07:12 06/21/19 00:31 Ventolin Nebulized INHALATION 2.5 mg RT-Q4H PRN Administration Dyspnea Albuterol/Ipratropium 3 ml 06/20/19 08:00 06/28/19 08:20 Duoneb 0.5 Mg-3 Mg/3 Ml Soln INHALATION 3 ml RT-QID RENZO Administration Albuterol/Ipratropium 3 ml 06/20/19 14:58 06/27/19 03:54 Duoneb 0.5 Mg-3 Mg/3 Ml Soln INHALATION 3 ml RT-QID PRN Administration Shortness Of Breath Or Wheezing Amiodarone HCl 200 mg 06/21/19 09:00 06/28/19 08:39 Cordarone PO 200 mg DAILY RENZO Administration Atorvastatin Calcium 10 mg 06/20/19 21:00 06/27/19 21:56 Lipitor PO 10 mg HS RENZO Administration Budesonide 1 mg 06/20/19 20:00 06/28/19 08:20 Pulmicort INHALATION 1 mg RT-BID RENZO Administration Chlorhexidine Gluconate 15 ml 06/21/19 09:00 06/28/19 08:38 Peridex MUCOUS MEM 15 ml BID RENZO Administration Diphenhydramine HCl 25 mg 06/26/19 13:29 06/26/19 13:47 Benadryl IVP 25 mg Q6HR PRN Administration Allergy Symptoms Ergocalciferol 50,000 unit 06/21/19 09:00 06/28/19 08:30 Vitamin D2 PO Not Given [id number] RENZO Formoterol Fumarate 20 mcg 06/20/19 20:00 06/28/19 08:20 Perforomist INHALATION 20 mcg RT-BID RENZO Administration Furosemide 40 mg 06/25/19 22:15 06/28/19 08:38 Lasix IV 40 mg Q12HR RENZO Administration Propofol 1,000 mg/ IV Solution 100 mls @ 0 mls/hr 06/21/19 01:45 06/28/19 08:29 IV 60 mcg/kg/min .Q0M RENZO 32.832 mls/hr Administration Protocol Titrate Cisatracurium Besylate 200 mg/ 200 mls @ 4.899 mls/hr 06/21/19 03:15 06/28/19 05:49 Sodium Chloride IV Not Given .Q24H RENZO Protocol 1 MCG/KG/MIN Norepinephrine Bitartrate 4 mg 254 mls @ 15.554 mls/hr 06/21/19 03:15 06/28/19 10:06 / Sodium Chloride IV 0.01 mcg/kg/min .[id number] RENZO 3.111 mls/hr Titration Protocol 0.05 MCG/KG/MIN Ampicillin Sodium/Sulbactam 100 mls @ 200 mls/hr 06/24/19 12:45 06/28/19 07:08 Sodium 3 gm/ Sodium Chloride IVPB 200 mls/hr Q6HR RENZO Administration Vancomycin HCl 1,500 mg/ 250 mls @ 125 mls/hr 06/24/19 13:00 06/28/19 00:46 Sodium Chloride IVPB 125 mls/hr Q12H RENZO Administration Insulin Human Regular 100 unit 101 mls @ 0 mls/hr 06/25/19 06:15 06/28/19 10:03 / Sodium Chloride IV 23 mls/hr .Q0M RENZO 23 mls/hr Titration Protocol Per Protocol Dextrose/Water 1,000 mls @ 100 mls/hr 06/26/19 17:30 06/28/19 07:13 Dextrose 5%-Water Iv Soln IV 100 mls/hr .Q10H RENZO Administration Dextrose/Water 1,000 mls @ 100 mls/hr 06/27/19 14:15 06/28/19 10:03 Dextrose 5%-Water Iv Soln IV Not Given .Q10H RENZO Diltiazem HCl 125 mg/ Sodium 125 mls @ 0 mls/hr 06/28/19 01:15 06/28/19 04:35 Chloride IV 10 mls/hr .Q0M RENZO 10 mls/hr Titration Protocol Per Protocol Lisinopril 5 mg 06/20/19 15:15 06/28/19 08:40 Zestril PO Not Given DAILY RENZO Lorazepam 1 mg 06/20/19 20:29 06/25/19 05:27 Ativan IV 1 mg Q2HR PRN Administration CIWA 8 or 9 Lorazepam 1 mg 06/20/19 20:29 Ativan IV Q1HR PRN CIWA 10 to 15 Lorazepam 4 mg 06/25/19 07:13 06/25/19 13:43 Ativan IV 4 mg Q2HR PRN Administration Anxiety Methylprednisolone Sodium Succinate 60 mg 06/20/19 18:00 06/28/19 06:26 Solu-Medrol IV 60 mg Q6HR RENZO Administration Metoprolol Tartrate 50 mg 06/20/19 21:00 06/28/19 08:39 Lopressor PO 50 mg BID RENZO Administration Miscellaneous Information 1 each 06/22/19 05:01 Potassium Per Protocol MISCELLANE DAILY PRN Per Protocol Protocol Miscellaneous Information 1 each 06/24/19 15:46 Potassium Per Protocol MISCELLANE DAILY PRN Per Protocol Protocol Miscellaneous Information 1 each 06/26/19 06:49 Potassium Per Protocol MISCELLANE DAILY PRN Per Protocol Protocol Miscellaneous Information 1 each 06/28/19 05:01 Potassium Per Protocol MISCELLANE DAILY PRN Per Protocol Protocol Montelukast Sodium 10 mg 06/20/19 21:00 06/27/19 21:58 Singulair PO 10 mg HS RENZO Administration Morphine Sulfate 2 mg 06/21/19 10:04 06/25/19 11:51 Morphine Sulfate (Inj) IVP 2 mg Q2H PRN Administration Pain/Discomfort Multivitamins 1 each 06/21/19 12:00 06/27/19 12:19 Theragran PO 1 each DAILY@1200 RENZO Administration Naloxone HCl 0.2 mg 06/20/19 22:43 Narcan IV Q2M PRN Opioid Reversal Nicotine 1 patch 06/20/19 15:15 06/28/19 08:38 Habitrol 14mg/24hr Patch TRANSDERM 1 patch DAILY RENZO Administration Pantoprazole Sodium 40 mg 06/21/19 09:00 06/28/19 08:39 Protonix IVP 40 mg DAILY RENZO Administration Paroxetine HCl 40 mg 06/20/19 15:15 06/28/19 08:39 Paxil PO 40 mg DAILY RENZO Administration Polyethylene Glycol 17 gm 06/21/19 09:00 06/28/19 08:32 Miralax PO Not Given DAILY RENZO Quetiapine Fumarate 100 mg 06/20/19 21:00 06/27/19 21:57 Seroquel PO 100 mg HS RENZO Administration Rivaroxaban 20 mg 06/20/19 15:15 06/28/19 08:44 Xarelto PO 20 mg DAILY RENZO Administration Objective - Vital Signs Vital signs: Vital Signs Temp 98.8 F 06/28/19 08:00 Pulse 140 H 06/28/19 10:00 Resp 14 06/28/19 10:00 BP 94/71 06/28/19 10:00 Pulse Ox 92 L 06/28/19 10:00 Intake & Output 06/27/19 06/28/19 06/28/19 18:59 06:59 18:59 Intake Total 2631.623 2992.445 1415.876 Output Total 2195 1395 420 Balance 949.500 9818.445 995.876 Weight 93.7 kg Intake: IV 975 350 Ampicillin-Sulbactam 3 gm 200 100 In Sodium Chloride 0.9% 100 ml @ 200 mls/hr IVPB Q6HR RENZO Rx#:[id number] Dextrose 5% in Water 1, 525 000 ml @ 100 mls/hr IV . Q10H RENZO Rx#:[id number] Vancomycin 1,500 mg In 250 250 Sodium Chloride 0.9% 250 ml @ 125 mls/hr IVPB Q12H RENZO Rx#:[id number] Intake, IV Titration 999.206 4619.445 1085.876 Amount Dextrose 5% in Water 1, 400 1000 400 000 ml @ 100 mls/hr IV . Q10H RENZO Rx#:[id number] Diltiazem 125 mg In 13.917 Sodium Chloride 0.9% 100 ml @ Per Protocol IV .Q0M RENZO Rx#:[id number] Insulin Regular 100 unit 117.883 198.534 15.6 In Sodium Chloride 0.9% 100 ml @ Per Protocol IV .Q0M RENZO Rx#:[id number] Norepinephrine 4 mg In 61.179 82.177 Sodium Chloride 0.9% 250 ml @ 0.05 MCG/KG/MIN 15. 554 mls/hr IV .[id number] RENZO Rx#:[id number] Propofol 1,000 mg In 368.740 398.815 88.099 Empty Bag 1 bag @ Titrate IV .Q0M RENZO Rx#: [id number] Sodium Chloride 0.9% 500 500 ml 500 ml @ 999 mls/hr IV .Q31M [facility] Rx#:[id number] Oral 240 Tube Feeding 220 220 80 Other 310 750 250 Output: Urine 2195 1395 420 Other: Voiding Method Indwelling Catheter Indwelling Catheter Indwelling Catheter ABP, PAP, CO, CI - Last Documented Arterial Blood Pressure 104/59 - Exam -GENERAL: The patient is intubated and sedated HEENT: Pupils are round and equally reacting to light. EOMI. No scleral icterus. No conjunctival pallor. Normocephalic, atraumatic. No pharyngeal erythema. No thyromegaly. CARDIOVASCULAR: S1 and S2 present. No murmurs, rubs, or gallops. -PULMONARY: Chest is clear to auscultation, Decreased air entry on both sides with scattered wheezing and crepitation especially in the basal lung zones ABDOMEN: Soft, nontender, nondistended, normoactive bowel sounds. No palpable organomegaly. MUSCULOSKELETAL: No joint swelling or deformity. -EXTREMITIES: No cyanosis, clubbing,. Mild bilateral leg edema NEUROLOGICAL: Gross neurological examination did not reveal any focal deficits. Exam is limited by patient condition SKIN: No rashes. no petechiae. - Labs CBC & Chem 7: 06/28/19 04:15 06/28/19 04:15 Labs: Abnormal Lab Results - Last 24 Hours (Table) 06/27/19 06/27/19 06/27/19 Range/Units 05:21 11:03 11:59 WBC (3.8-10.6) k/uL RBC (4.30-5.90) m/uL Hgb (13.0-17.5) gm/dL Hct (39.0-53.0) % MCV (80.0-100.0) fL Neutrophils # (Manual) (1.3-7.7) k/uL ABG pH (7.35-7.45) ABG pCO2 (35-45) mmHg ABG pO2 (83-108) mmHg ABG HCO3 (21-25) mmol/L ABG Total CO2 (19-24) mmol/L ABG O2 Saturation (94-97) % Sodium (137-145) mmol/L Chloride (98-107) mmol/L Carbon Dioxide (22-30) mmol/L BUN (9-20) mg/dL Creatinine (0.66-1.25) mg/dL Glucose (74-99) mg/dL POC Glucose (mg/dL) 233 H 219 H (75-99) mg/dL Calcium (8.4-10.2) mg/dL Magnesium (1.6-2.3) mg/dL Procalcitonin 0.67 H (0.02-0.09) ng/mL 06/27/19 06/27/19 06/27/19 Range/Units 12:56 13:00 14:07 WBC (3.8-10.6) k/uL RBC (4.30-5.90) m/uL Hgb (13.0-17.5) gm/dL Hct (39.0-53.0) % MCV (80.0-100.0) fL Neutrophils # (Manual) (1.3-7.7) k/uL ABG pH (7.35-7.45) ABG pCO2 (35-45) mmHg ABG pO2 (83-108) mmHg ABG HCO3 (21-25) mmol/L ABG Total CO2 (19-24) mmol/L ABG O2 Saturation (94-97) % Sodium 156 H (137-145) mmol/L Chloride 117 H (98-107) mmol/L Carbon Dioxide 35 H (22-30) mmol/L BUN 67 H (9-20) mg/dL Creatinine 1.40 H (0.66-1.25) mg/dL Glucose 173 H (74-99) mg/dL POC Glucose (mg/dL) 169 H 110 H (75-99) mg/dL Calcium 8.2 L (8.4-10.2) mg/dL Magnesium (1.6-2.3) mg/dL Procalcitonin (0.02-0.09) ng/mL 06/27/19 06/27/19 06/27/19 Range/Units 15:11 16:02 17:02 WBC (3.8-10.6) k/uL RBC (4.30-5.90) m/uL Hgb (13.0-17.5) gm/dL Hct (39.0-53.0) % MCV (80.0-100.0) fL Neutrophils # (Manual) (1.3-7.7) k/uL ABG pH (7.35-7.45) ABG pCO2 (35-45) mmHg ABG pO2 (83-108) mmHg ABG HCO3 (21-25) mmol/L ABG Total CO2 (19-24) mmol/L ABG O2 Saturation (94-97) % Sodium (137-145) mmol/L Chloride (98-107) mmol/L Carbon Dioxide (22-30) mmol/L BUN (9-20) mg/dL Creatinine (0.66-1.25) mg/dL Glucose (74-99) mg/dL POC Glucose (mg/dL) 129 H 174 H 184 H (75-99) mg/dL Calcium (8.4-10.2) mg/dL Magnesium (1.6-2.3) mg/dL Procalcitonin (0.02-0.09) ng/mL 06/27/19 06/27/19 06/27/19 Range/Units 17:55 18:49 20:03 WBC (3.8-10.6) k/uL RBC (4.30-5.90) m/uL Hgb (13.0-17.5) gm/dL Hct (39.0-53.0) % MCV (80.0-100.0) fL Neutrophils # (Manual) (1.3-7.7) k/uL ABG pH (7.35-7.45) ABG pCO2 (35-45) mmHg ABG pO2 (83-108) mmHg ABG HCO3 (21-25) mmol/L ABG Total CO2 (19-24) mmol/L ABG O2 Saturation (94-97) % Sodium (137-145) mmol/L Chloride (98-107) mmol/L Carbon Dioxide (22-30) mmol/L BUN (9-20) mg/dL Creatinine (0.66-1.25) mg/dL Glucose (74-99) mg/dL POC Glucose (mg/dL) 225 H 212 H 187 H (75-99) mg/dL Calcium (8.4-10.2) mg/dL Magnesium (1.6-2.3) mg/dL Procalcitonin (0.02-0.09) ng/mL 06/27/19 06/27/19 06/27/19 Range/Units 21:04 22:00 23:10 WBC (3.8-10.6) k/uL RBC (4.30-5.90) m/uL Hgb (13.0-17.5) gm/dL Hct (39.0-53.0) % MCV (80.0-100.0) fL Neutrophils # (Manual) (1.3-7.7) k/uL ABG pH (7.35-7.45) ABG pCO2 (35-45) mmHg ABG pO2 (83-108) mmHg ABG HCO3 (21-25) mmol/L ABG Total CO2 (19-24) mmol/L ABG O2 Saturation (94-97) % Sodium (137-145) mmol/L Chloride (98-107) mmol/L Carbon Dioxide (22-30) mmol/L BUN (9-20) mg/dL Creatinine (0.66-1.25) mg/dL Glucose (74-99) mg/dL POC Glucose (mg/dL) 150 H 121 H 136 H (75-99) mg/dL Calcium (8.4-10.2) mg/dL Magnesium (1.6-2.3) mg/dL Procalcitonin (0.02-0.09) ng/mL 06/28/19 06/28/19 06/28/19 Range/Units 00:02 00:23 00:58 WBC (3.8-10.6) k/uL RBC (4.30-5.90) m/uL Hgb (13.0-17.5) gm/dL Hct (39.0-53.0) % MCV (80.0-100.0) fL Neutrophils # (Manual) (1.3-7.7) k/uL ABG pH (7.35-7.45) ABG pCO2 (35-45) mmHg ABG pO2 (83-108) mmHg ABG HCO3 (21-25) mmol/L ABG Total CO2 (19-24) mmol/L ABG O2 Saturation (94-97) % Sodium (137-145) mmol/L Chloride (98-107) mmol/L Carbon Dioxide (22-30) mmol/L BUN (9-20) mg/dL Creatinine (0.66-1.25) mg/dL Glucose (74-99) mg/dL POC Glucose (mg/dL) 201 H 222 H 258 H (75-99) mg/dL Calcium (8.4-10.2) mg/dL Magnesium (1.6-2.3) mg/dL Procalcitonin (0.02-0.09) ng/mL 06/28/19 06/28/19 06/28/19 Range/Units 02:01 03:12 03:58 WBC (3.8-10.6) k/uL RBC (4.30-5.90) m/uL Hgb (13.0-17.5) gm/dL Hct (39.0-53.0) % MCV (80.0-100.0) fL Neutrophils # (Manual) (1.3-7.7) k/uL ABG pH (7.35-7.45) ABG pCO2 (35-45) mmHg ABG pO2 (83-108) mmHg ABG HCO3 (21-25) mmol/L ABG Total CO2 (19-24) mmol/L ABG O2 Saturation (94-97) % Sodium (137-145) mmol/L Chloride (98-107) mmol/L Carbon Dioxide (22-30) mmol/L BUN (9-20) mg/dL Creatinine (0.66-1.25) mg/dL Glucose (74-99) mg/dL POC Glucose (mg/dL) 302 H 262 H 248 H (75-99) mg/dL Calcium (8.4-10.2) mg/dL Magnesium (1.6-2.3) mg/dL Procalcitonin (0.02-0.09) ng/mL 06/28/19 06/28/19 06/28/19 Range/Units 04:15 04:15 05:12 WBC 12.9 H (3.8-10.6) k/uL RBC 3.11 L (4.30-5.90) m/uL Hgb 9.9 L (13.0-17.5) gm/dL Hct 31.2 L (39.0-53.0) % MCV 100.5 H (80.0-100.0) fL Neutrophils # (Manual) 10.45 H (1.3-7.7) k/uL ABG pH (7.35-7.45) ABG pCO2 (35-45) mmHg ABG pO2 (83-108) mmHg ABG HCO3 (21-25) mmol/L ABG Total CO2 (19-24) mmol/L ABG O2 Saturation (94-97) % Sodium 150 H (137-145) mmol/L Chloride 114 H (98-107) mmol/L Carbon Dioxide 33 H (22-30) mmol/L BUN 64 H (9-20) mg/dL Creatinine (0.66-1.25) mg/dL Glucose 222 H (74-99) mg/dL POC Glucose (mg/dL) 163 H (75-99) mg/dL Calcium 7.8 L (8.4-10.2) mg/dL Magnesium 2.7 H (1.6-2.3) mg/dL Procalcitonin (0.02-0.09) ng/mL 06/28/19 06/28/19 06/28/19 Range/Units 05:43 06:23 07:05 WBC (3.8-10.6) k/uL RBC (4.30-5.90) m/uL Hgb (13.0-17.5) gm/dL Hct (39.0-53.0) % MCV (80.0-100.0) fL Neutrophils # (Manual) (1.3-7.7) k/uL ABG pH 7.34 L (7.35-7.45) ABG pCO2 60 H (35-45) mmHg ABG pO2 79 L (83-108) mmHg ABG HCO3 33 H (21-25) mmol/L ABG Total CO2 35 H (19-24) mmol/L ABG O2 Saturation 93.8 L (94-97) % Sodium (137-145) mmol/L Chloride (98-107) mmol/L Carbon Dioxide (22-30) mmol/L BUN (9-20) mg/dL Creatinine (0.66-1.25) mg/dL Glucose (74-99) mg/dL POC Glucose (mg/dL) 109 H 112 H (75-99) mg/dL Calcium (8.4-10.2) mg/dL Magnesium (1.6-2.3) mg/dL Procalcitonin (0.02-0.09) ng/mL 06/28/19 06/28/19 06/28/19 Range/Units 07:56 09:10 09:53 WBC (3.8-10.6) k/uL RBC (4.30-5.90) m/uL Hgb (13.0-17.5) gm/dL Hct (39.0-53.0) % MCV (80.0-100.0) fL Neutrophils # (Manual) (1.3-7.7) k/uL ABG pH (7.35-7.45) ABG pCO2 (35-45) mmHg ABG pO2 (83-108) mmHg ABG HCO3 (21-25) mmol/L ABG Total CO2 (19-24) mmol/L ABG O2 Saturation (94-97) % Sodium (137-145) mmol/L Chloride (98-107) mmol/L Carbon Dioxide (22-30) mmol/L BUN (9-20) mg/dL Creatinine (0.66-1.25) mg/dL Glucose (74-99) mg/dL POC Glucose (mg/dL) 138 H 205 H 232 H (75-99) mg/dL Calcium (8.4-10.2) mg/dL Magnesium (1.6-2.3) mg/dL Procalcitonin (0.02-0.09) ng/mL Microbiology - Last 24 Hours (Table) 06/23/19 19:30 Blood Culture - Preliminary Blood No Growth after 96 hours Assessment and Plan Assessment: Right pneumonia secondary to MRSA and Acinetobacter Acute tracheobronchitis Acute hypoxic respiratory failure Acute COPD exacerbation A. fib with RVR Vascular shock, multifactorial to be infection and cardiogenic Bilateral pleural effusion, right more than left Erythematous rash in the upper chest mild Acute kidney injury Right thyroid nodule Pulmonary artery hypertension Acute kidney injury, present on admission. Resolved Hypernatremia History of PE on Xarelto Chronic nonischemic cardiomyopathy with ejection fraction 30-35% Chronic A. fib Hypothyroidism Chronic alcohol abuse Nicotine dependence Hyperlipidemia Hypertension History of gravis disease History of squamous cell cancer of the skin with removal Plan: This is a 54 years old male who is mechanically ventilated. Patient is followed closely by infectious disease and pulmonary/critical care teams and follow-up recommendation. Continue with antibiotics as per ID team, continue with steroids, continue with his alcohol withdrawal treatment, continue with CIWA protocol. Continue with D5W and water flushes follow-up sodium level. Consult cardiology for his A. fib and low ejection fraction. Continue with insulin Labs and medication were reviewed.. Continue same treatment. Continue with symptomatic treatment. Resume home medication. Monitor lytes and vitals. DVT and GI prophylaxis. Further recommendations of the clinical course of the patient DVT prophylaxis: Xarelto GI Prophylaxis: PPI Prognosis is remains critically guarded
[2019-06-28 11:26] LABS: Glucose,Whole Blood 226 mg/dL (75-99)
[2019-06-28 12:14] LABS: Glucose,Whole Blood 206 mg/dL (75-99)
[2019-06-28] MEDS: MULTIVITAMINS, THERA 1 EACH TAB PO SCH (13:16)
[2019-06-28 13:34] LABS: Glucose,Whole Blood 120 mg/dL (75-99)
[2019-06-28] MEDS ORDERED: IV FLUID CONTINUATION 1,000 ML IV ONE (13:39)
[2019-06-28 14:21] LABS: Glucose,Whole Blood 100 mg/dL (75-99)
--- NOTE | 2019-06-28 14:42 | P.PN ---
Subjective Progress Note Date: 06/28/19 Principal diagnosis: Polymicrobial pneumonia associated with Acinetobacter and Staph Acute hypoxic and hypercapnic respiratory failure Acute COPD exacerbation Mild hyper natremia Fluid overload Cardiomyopathy nonischemic baseline ejection fraction 35%, chronic systolic heart failure Chronic atrial flutter fibrillation History of fall with multiple rib fracture pneumothorax History of extensive smoking and nicotine use 06/28/2019, patient seen eval reexamined during the rounds labs reviewed medications reviewed due to increased requirement for oxygen as well as very thick purulent secretions in the lung patient is elected for bronchoscopy, patient remains on PEEP of 10 with SIMV pressure support, tube feedings given patient developed labs A. fib with rapid ventricular response requiring Cardizem drip and will obtain a PICC line and will undergo bronchoscopy as well for pulmonary toilet, sodium remains high patient is on D5 and free water, critical care time 35 minutes 06/27/2019, patient seen eval examined during the rounds labs reviewed medications reviewed sodium level is still high we'll increase the free water, patient remains on SIMV mode with pressure support and PEEP of 10 FiO2 70% ABGs are stable, thick pulmonary secretions are present, culture reports are reviewed, patient remains on broad-spectrum antibiotics, to feed as tolerated well, due to elevated sugar patient is on insulin drip, remains on propofol, once FiO2 improve will restart weaning critical care time 35 minutes 06/26/2019, patient seen eval examined during the rounds went setting have been adjusted patient is switched to SIMV with pressure support he seems to be doing with better with this setting PEEP was increased to 10 FiO2 is improved pH has improved however patient has hypernatremia she has been started on D5, computed tomography scan of the head as well as the chest has been performed which is reviewed, extensive emphysema and bibasilar infiltrates are seen, patient remains on propofol drip off of vasopressors now, labs reviewed medications reviewed care plan discussed with Her family members at length, once oxygenation is improved gradually will wean down the ventilator setting, 06/25/2019, patient seen eval examined during the rounds labs reviewed m edications reviewed patient continued to be hypoxic today is for the first time she is -730 mL his urine output is fairly adequate about 50 60/h but has been declining, he is on 40 mg of IV Lasix will increase it to twice a day, his NG tube is changed OG tube, the cellulitis that he has on neck and upper chest seems to be slowly progressing, patient has been switched to antibiotics currently on ampicillin along with IV vancomycin, his went setting includes assist control rate of 16 tidal volume of 500 PEEP has been escalated to 8, FiO2 is 70% with that saturation is 90 urine 94%, he is off of vasopressors, his cultures are growing Acinetobacter and MRSA in the sputum, he is tolerating tube feed very well, patient is being replaced on hypokalemia 06/24/2019, patient seen and evaluated examined during the rounds labs reviewed medications reviewed patient came back positive for Acinetobacter and Staph in the sputum, he remains hemodynamically stable off of vasopressors, however he is positive almost 10-15 L, patient has a good response with Lasix given this morning we'll put on a daily basis also patient has mild hypernatremia S patient is tolerating tube feed will DC the extra IV fluids, we'll continue to titrate propofol down as tolerated plan to do weaning tomorrow, labs reviewed medications reviewed care plan discussed with the staff at length FiO2 is slightly increased to 60% and likely related to fluid overload 06/23/2019, patient seen eval examined during the rounds patient is off of vasopressors off of the medical paralysis however remains on the propofol 70 mics, patient is deeply sedated remains on assist control rate of 16 tidal volume of 505 of PEEP and FiO2 down to 40%, chest x-ray reviewed overall remains stable patient is being treated for bilateral pneumonia, tomorrow we'll taper down the sedation and see if a CPAP of 5 trial with pressure support can be done continued to feed for now repeat labs and x-ray tomorrow 06/22/2019, patient seen eval reexamined during the rounds, Nimbex drip have been tapered and DC'd, patient remains on full ventilator support, fall was attempted to wean down but patient becomes anxious and agitated he does intermittently open eyes, he remains on assist control mode rate of 16 and tidal volume of 500+5 of PEEP and 50% oxygen, white cell count is 4000 with stable hemoglobin of 710.6, arterial blood gases on above vent setting include pH is 7.32 pCO2 30 and pO2 109 FiO2 subsequently decreased to 40%, order have been placed restart the tube feed patient remains on vancomycin and high-dose Rocephin, patient has been evaluated by infectious disease services the pretest probability of the meningitis is low but he remains on emperic therapy, will wean down the propofol further and reassess the mental status and try to wean as tolerated, chest x-ray showed right lower lobe pneumonia and a small effusion 06/21/2019, patient seen eval reexamined during the rounds events from earlier this morning noted patient developed respiratory distress and severe metabolic acidosis likely related to acute COPD exacerbation and severe sepsis from unknown source, patient was intubated due to severe agitation patient has been started on medical paralysis we'll start tapering it down now currently patient is 4 out of 4 will cut it down to half and gradually taper and DC it continue propofol for sedation, supplemental it with Ativan and morphine, chest x-ray from earlier this morning reviewed prominent interstitium has been noted, lacking lactic acid noted to have improved, patient had been aggressively resuscitated with crystalloids, blood pressure is normal the levo fed is being titrated down currently he is on 2 mics, when setting includes assist control rate of 16 and tidal volume of 500 PEEP of 5 and FiO2 is down to 50%, 10 cultures have been done, flu studies noted to be negative, Rocephin is 1 g along with Zithromax we will increase the dose of Rocephin to 2 g and add vancomycin as well for now, prior to intubation patient was complaining of stiffness in the upper extremity head and neck area, spinal tap couldn't be performed as patient is on blood thinners, likelihood of meningitis however is low, labs reviewed medications reviewed critical care time 35 minutes This is a 54-year-old male who was seen evaluated examined in the emergency department this morning he has been not feeling well for 2 weeks of progressive cough shortness of breath associated with purulent sputum production came into emergency department for further evaluation chest x-ray has been negative for any acute process, overall a poor historian he has a long-standing history of cardiovascular problems including chronic atrial fibrillation and flutter history of the chronic systolic heart failure baseline ejection fraction of 30% it is thought to be nonischemic cardiomyopathy, patient has a history of Graves' disease pulmonary embolism thyroid disorder history of falls with the pneumothorax and hemothorax and multiple refracture hospitalized back in 2017 on arrival he was noted to have a low-grade fever now resolved, he is being treated with broad-spectrum antibiotics, bronchodilators as well as IV steroids Objective - Vital Signs Vital signs: Vital Signs Temp 98.8 F 06/28/19 08:00 Pulse 101 H 06/28/19 12:14 Resp 15 06/28/19 11:00 BP 90/68 06/28/19 11:00 Pulse Ox 94 L 06/28/19 11:00 Intake & Output 06/27/19 06/28/19 06/28/19 18:59 06:59 18:59 Intake Total 2631.623 2992.445 1774.694 Output Total 2195 1395 545 Balance 276.098 9335.445 1229.694 Weight 93.7 kg Intake: IV 975 350 25 Ampicillin-Sulbactam 3 gm 200 100 In Sodium Chloride 0.9% 100 ml @ 200 mls/hr IVPB Q6HR [facility] Rx#:[id number] Dextrose 5% in Water 1, 525 000 ml @ 100 mls/hr IV . Q10H [facility] Rx#:[id number] Vancomycin 1,500 mg In 250 250 Sodium Chloride 0.9% 250 ml @ 125 mls/hr IVPB Q12H [facility] Rx#:[id number] Intake, IV Titration 529.015 6597.445 1399.694 Amount Dextrose 5% in Water 1, 400 1000 500 000 ml @ 100 mls/hr IV . Q10H [facility] Rx#:[id number] Diltiazem 125 mg In 13.917 89.667 Sodium Chloride 0.9% 100 ml @ Per Protocol IV .Q0M [facility] Rx#:[id number] Insulin Regular 100 unit 117.883 198.534 35.367 In Sodium Chloride 0.9% 100 ml @ Per Protocol IV .Q0M [facility] Rx#:[id number] Norepinephrine 4 mg In 61.179 92.443 Sodium Chloride 0.9% 250 ml @ 0.05 MCG/KG/MIN 15. 554 mls/hr IV .[id number] [facility] Rx#:[id number] Propofol 1,000 mg In 368.740 398.815 182.217 Empty Bag 1 bag @ Titrate IV .Q0M [facility] Rx#: [id number] Sodium Chloride 0.9% 500 500 ml 500 ml @ 999 mls/hr IV .Q31M ONE Rx#:[id number] Oral 240 Tube Feeding 220 220 100 Other 310 750 250 Output: Urine 2195 1395 545 Other: Voiding Method Indwelling Catheter Indwelling Catheter Indwelling Catheter ABP, PAP, CO, CI - Last Documented Arterial Blood Pressure 98/52 - Exam - Constitutional General appearance: average body habitus, stable currently with medical par alysis and propofol - EENT Eyes: anicteric sclerae, EOMI, PERRLA, poor dentition, normal appearance Ears: bilateral: normal - Neck Neck: normal ROM, diffuse rash which is erythematous involving the neck and upper chest and shoulders Carotids: bilateral: upstroke normal Thyroid: bilateral: normal size - Respiratory Respiratory: bilateral: diminished, wheezing, negative: CTA, - Cardiovascular Rhythm: regular Heart sounds: normal: S1, S2 - Gastrointestinal General gastrointestinal: normal bowel sounds, soft - Integumentary Integumentary: normal turgor - Neurologic Cannot assess being on ventilator - Musculoskeletal Cannot assess being on ventilator - Psychiatric Psychiatric: Cannot assess being on ventilator - Labs CBC & Chem 7: 06/28/19 04:15 06/28/19 04:15 Labs: Abnormal Lab Results - Last 24 Hours (Table) 06/27/19 06/27/19 06/27/19 Range/Units 05:21 15:11 16:02 WBC (3.8-10.6) k/uL RBC (4.30-5.90) m/uL Hgb (13.0-17.5) gm/dL Hct (39.0-53.0) % MCV (80.0-100.0) fL Neutrophils # (Manual) (1.3-7.7) k/uL ABG pH (7.35-7.45) ABG pCO2 (35-45) mmHg ABG pO2 (83-108) mmHg ABG HCO3 (21-25) mmol/L ABG Total CO2 (19-24) mmol/L ABG O2 Saturation (94-97) % Sodium (137-145) mmol/L Chloride (98-107) mmol/L Carbon Dioxide (22-30) mmol/L BUN (9-20) mg/dL Glucose (74-99) mg/dL POC Glucose (mg/dL) 129 H 174 H (75-99) mg/dL Calcium (8.4-10.2) mg/dL Magnesium (1.6-2.3) mg/dL Procalcitonin 0.67 H (0.02-0.09) ng/mL 06/27/19 06/27/19 06/27/19 Range/Units 17:02 17:55 18:49 WBC (3.8-10.6) k/uL RBC (4.30-5.90) m/uL Hgb (13.0-17.5) gm/dL Hct (39.0-53.0) % MCV (80.0-100.0) fL Neutrophils # (Manual) (1.3-7.7) k/uL ABG pH (7.35-7.45) ABG pCO2 (35-45) mmHg ABG pO2 (83-108) mmHg ABG HCO3 (21-25) mmol/L ABG Total CO2 (19-24) mmol/L ABG O2 Saturation (94-97) % Sodium (137-145) mmol/L Chloride (98-107) mmol/L Carbon Dioxide (22-30) mmol/L BUN (9-20) mg/dL Glucose (74-99) mg/dL POC Glucose (mg/dL) 184 H 225 H 212 H (75-99) mg/dL Calcium (8.4-10.2) mg/dL Magnesium (1.6-2.3) mg/dL Procalcitonin (0.02-0.09) ng/mL 06/27/19 06/27/19 06/27/19 Range/Units 20:03 21:04 22:00 WBC (3.8-10.6) k/uL RBC (4.30-5.90) m/uL Hgb (13.0-17.5) gm/dL Hct (39.0-53.0) % MCV (80.0-100.0) fL Neutrophils # (Manual) (1.3-7.7) k/uL ABG pH (7.35-7.45) ABG pCO2 (35-45) mmHg ABG pO2 (83-108) mmHg ABG HCO3 (21-25) mmol/L ABG Total CO2 (19-24) mmol/L ABG O2 Saturation (94-97) % Sodium (137-145) mmol/L Chloride (98-107) mmol/L Carbon Dioxide (22-30) mmol/L BUN (9-20) mg/dL Glucose (74-99) mg/dL POC Glucose (mg/dL) 187 H 150 H 121 H (75-99) mg/dL Calcium (8.4-10.2) mg/dL Magnesium (1.6-2.3) mg/dL Procalcitonin (0.02-0.09) ng/mL 06/27/19 06/28/19 06/28/19 Range/Units 23:10 00:02 00:23 WBC (3.8-10.6) k/uL RBC (4.30-5.90) m/uL Hgb (13.0-17.5) gm/dL Hct (39.0-53.0) % MCV (80.0-100.0) fL Neutrophils # (Manual) (1.3-7.7) k/uL ABG pH (7.35-7.45) ABG pCO2 (35-45) mmHg ABG pO2 (83-108) mmHg ABG HCO3 (21-25) mmol/L ABG Total CO2 (19-24) mmol/L ABG O2 Saturation (94-97) % Sodium (137-145) mmol/L Chloride (98-107) mmol/L Carbon Dioxide (22-30) mmol/L BUN (9-20) mg/dL Glucose (74-99) mg/dL POC Glucose (mg/dL) 136 H 201 H 222 H (75-99) mg/dL Calcium (8.4-10.2) mg/dL Magnesium (1.6-2.3) mg/dL Procalcitonin (0.02-0.09) ng/mL 06/28/19 06/28/19 06/28/19 Range/Units 00:58 02:01 03:12 WBC (3.8-10.6) k/uL RBC (4.30-5.90) m/uL Hgb (13.0-17.5) gm/dL Hct (39.0-53.0) % MCV (80.0-100.0) fL Neutrophils # (Manual) (1.3-7.7) k/uL ABG pH (7.35-7.45) ABG pCO2 (35-45) mmHg ABG pO2 (83-108) mmHg ABG HCO3 (21-25) mmol/L ABG Total CO2 (19-24) mmol/L ABG O2 Saturation (94-97) % Sodium (137-145) mmol/L Chloride (98-107) mmol/L Carbon Dioxide (22-30) mmol/L BUN (9-20) mg/dL Glucose (74-99) mg/dL POC Glucose (mg/dL) 258 H 302 H 262 H (75-99) mg/dL Calcium (8.4-10.2) mg/dL Magnesium (1.6-2.3) mg/dL Procalcitonin (0.02-0.09) ng/mL 06/28/19 06/28/19 06/28/19 Range/Units 03:58 04:15 04:15 WBC 12.9 H (3.8-10.6) k/uL RBC 3.11 L (4.30-5.90) m/uL Hgb 9.9 L (13.0-17.5) gm/dL Hct 31.2 L (39.0-53.0) % MCV 100.5 H (80.0-100.0) fL Neutrophils # (Manual) 10.45 H (1.3-7.7) k/uL ABG pH (7.35-7.45) ABG pCO2 (35-45) mmHg ABG pO2 (83-108) mmHg ABG HCO3 (21-25) mmol/L ABG Total CO2 (19-24) mmol/L ABG O2 Saturation (94-97) % Sodium 150 H (137-145) mmol/L Chloride 114 H (98-107) mmol/L Carbon Dioxide 33 H (22-30) mmol/L BUN 64 H (9-20) mg/dL Glucose 222 H (74-99) mg/dL POC Glucose (mg/dL) 248 H (75-99) mg/dL Calcium 7.8 L (8.4-10.2) mg/dL Magnesium 2.7 H (1.6-2.3) mg/dL Procalcitonin (0.02-0.09) ng/mL 06/28/19 06/28/19 06/28/19 Range/Units 05:12 05:43 06:23 WBC (3.8-10.6) k/uL RBC (4.30-5.90) m/uL Hgb (13.0-17.5) gm/dL Hct (39.0-53.0) % MCV (80.0-100.0) fL Neutrophils # (Manual) (1.3-7.7) k/uL ABG pH 7.34 L (7.35-7.45) ABG pCO2 60 H (35-45) mmHg ABG pO2 79 L (83-108) mmHg ABG HCO3 33 H (21-25) mmol/L ABG Total CO2 35 H (19-24) mmol/L ABG O2 Saturation 93.8 L (94-97) % Sodium (137-145) mmol/L Chloride (98-107) mmol/L Carbon Dioxide (22-30) mmol/L BUN (9-20) mg/dL Glucose (74-99) mg/dL POC Glucose (mg/dL) 163 H 109 H (75-99) mg/dL Calcium (8.4-10.2) mg/dL Magnesium (1.6-2.3) mg/dL Procalcitonin (0.02-0.09) ng/mL 06/28/19 06/28/19 06/28/19 Range/Units 07:05 07:56 09:10 WBC (3.8-10.6) k/uL RBC (4.30-5.90) m/uL Hgb (13.0-17.5) gm/dL Hct (39.0-53.0) % MCV (80.0-100.0) fL Neutrophils # (Manual) (1.3-7.7) k/uL ABG pH (7.35-7.45) ABG pCO2 (35-45) mmHg ABG pO2 (83-108) mmHg ABG HCO3 (21-25) mmol/L ABG Total CO2 (19-24) mmol/L ABG O2 Saturation (94-97) % Sodium (137-145) mmol/L Chloride (98-107) mmol/L Carbon Dioxide (22-30) mmol/L BUN (9-20) mg/dL Glucose (74-99) mg/dL POC Glucose (mg/dL) 112 H 138 H 205 H (75-99) mg/dL Calcium (8.4-10.2) mg/dL Magnesium (1.6-2.3) mg/dL Procalcitonin (0.02-0.09) ng/mL 06/28/19 06/28/19 06/28/19 Range/Units 09:53 11:14 12:03 WBC (3.8-10.6) k/uL RBC (4.30-5.90) m/uL Hgb (13.0-17.5) gm/dL Hct (39.0-53.0) % MCV (80.0-100.0) fL Neutrophils # (Manual) (1.3-7.7) k/uL ABG pH (7.35-7.45) ABG pCO2 (35-45) mmHg ABG pO2 (83-108) mmHg ABG HCO3 (21-25) mmol/L ABG Total CO2 (19-24) mmol/L ABG O2 Saturation (94-97) % Sodium (137-145) mmol/L Chloride (98-107) mmol/L Carbon Dioxide (22-30) mmol/L BUN (9-20) mg/dL Glucose (74-99) mg/dL POC Glucose (mg/dL) 232 H 226 H 206 H (75-99) mg/dL Calcium (8.4-10.2) mg/dL Magnesium (1.6-2.3) mg/dL Procalcitonin (0.02-0.09) ng/mL 06/28/19 06/28/19 Range/Units 13:22 14:10 WBC (3.8-10.6) k/uL RBC (4.30-5.90) m/uL Hgb (13.0-17.5) gm/dL Hct (39.0-53.0) % MCV (80.0-100.0) fL Neutrophils # (Manual) (1.3-7.7) k/uL ABG pH (7.35-7.45) ABG pCO2 (35-45) mmHg ABG pO2 (83-108) mmHg ABG HCO3 (21-25) mmol/L ABG Total CO2 (19-24) mmol/L ABG O2 Saturation (94-97) % Sodium (137-145) mmol/L Chloride (98-107) mmol/L Carbon Dioxide (22-30) mmol/L BUN (9-20) mg/dL Glucose (74-99) mg/dL POC Glucose (mg/dL) 120 H 100 H (75-99) mg/dL Calcium (8.4-10.2) mg/dL Magnesium (1.6-2.3) mg/dL Procalcitonin (0.02-0.09) ng/mL Microbiology - Last 24 Hours (Table) 06/23/19 19:30 Blood Culture - Preliminary Blood No Growth after 96 hours Assessment and Plan Assessment: Bilateral lower lobe pneumonia due to Acinetobacter and MRSA in the sputum Small right-sided pleural effusion Fluid overload Hyper natremia Acute hypoxic and hypercapnic respiratory failure Severe sepsis from above Diffuse rash of the neck and upper shoulder Acute COPD exacerbation Purulent tracheobronchitis Cardiomyopathy nonischemic baseline ejection fraction 35%, chronic systolic heart failure Chronic atrial flutter fibrillation on Xarelto History of fall with multiple rib fracture pneumothorax History of extensive smoking and nicotine use Plan: Bronchoscopy PICC line Continue vasopressors Continue Cardizem drip Overall plan includes Taper sedation, get rid of propofol as tolerated, will do CPAP and pressure support once oxygenation improved, for the time being patient is on SIMV with pressure support when oxygen comes down anticoagulation to be continued Breathing treatment D5 for hyper natremia IV steroids Increase free water to 250 mL every 6 hourly Continue to feed via OG tube Broad-spectrum antibiotics, Monitor clinical course closely Further recommendations pending plan of care as per clinical response of the patient Continue Lasix to 40 mg IV every 12 Time with Patient: Greater than 30
--- NOTE | 2019-06-28 14:45 | P.PCN ---
Date of Procedure: 06/28/19 Preoperative Diagnosis: Pneumonia, end-stage COPD, atrial fibrillation with rapid ventricular response, thick purulent secretion Postoperative Diagnosis: As above Procedure(s) Performed: Bronchoscopy bronchoalveolar lavage Anesthesia: local Surgeon: Remy Ali Condition: critical Disposition: ICU Indications for Procedure: As above Operative Findings: As below Description of Procedure: Endotracheal tube was utilized to pass bronchoscope tank were sharp they were bilateral excessive amount of thick pearly marie secretions and plugs were present which was suctioned clean patient appears to have a small foreign body terminal airway pictures were taken during the procedures sats were dropping procedure was stopped FiO2 and rate on the ventilator was escalated prior to that right upper lobe and right mid lower lobe lavage was done and fluid was sent for cytology culture and Gram stain
[2019-06-28 15:17] LABS: Glucose,Whole Blood 100 mg/dL (75-99)
[2019-06-28 16:22] LABS: Glucose,Whole Blood 165 mg/dL (75-99)
[2019-06-28 17:12] LABS: Glucose,Whole Blood 195 mg/dL (75-99)
[2019-06-28 18:03] LABS: Glucose,Whole Blood 202 mg/dL (75-99)
[2019-06-28 19:09] LABS: Glucose,Whole Blood 189 mg/dL (75-99)
[2019-06-28 20:05] LABS: Glucose,Whole Blood 153 mg/dL (75-99)
--- NOTE | 2019-06-28 20:53 | PN ---
PROGRESS NOTE DATE OF SERVICE: 06/28/2019 REASON FOR FOLLOWUP: Pneumonia. INTERVAL HISTORY: The patient is currently afebrile. The patient did go into atrial fibrillation with RVR which did require starting of the Cardizem drip. Subsequently blood pressure dropped, so the patient had to be started on Levophed. The patient is status post bronchoscopy this afternoon, which the patient tolerated. The patient remains intubated on the vent, sedated, unable to provide any history. Tolerating his tube feeds. No diarrhea reported by the nursing staff. PHYSICAL EXAMINATION: Blood pressure 106/66, pulse of 97, temperature 98. He is 92% on 70% FiO2. General description is a middle-aged male lying in bed in no distress. RESPIRATORY SYSTEM: Unlabored breathing with decreased breath sounds at the base. No wheeze. HEART: S1, S2. Regular rate and rhythm. ABDOMEN: Soft. No tenderness. LABS: Hemoglobin 9.9, white count 12.9, BUN of 54, creatinine 1.12. DIAGNOSTIC IMPRESSION AND PLAN: Patient with acute respiratory failure which is multifactorial in this patient who did have a component of pneumonia. Sputum has been Acinetobacter and MRSA. Patient is covered with Unasyn and vancomycin. That will be continued. Will follow up on the bronch cultures to adjust the medication further if needed. Family at the bedside. Their questions were answered. MMODL / IJN: [id number] /
[2019-06-28 21:19] LABS: Glucose,Whole Blood 121 mg/dL (75-99)
[2019-06-28] MEDS: QUEtiapine 100 MG TAB PO SCH (21:20)
[2019-06-28] MEDS: MONTELUKAST 10 MG TAB PO SCH (21:20)
[2019-06-28] MEDS: ATORVASTATIN 10 MG TAB PO SCH (21:20)
[2019-06-28 22:18] LABS: Glucose,Whole Blood 148 mg/dL (75-99)
[2019-06-28 23:37] LABS: Glucose,Whole Blood 138 mg/dL (75-99)
[2019-06-29 00:15] LABS: Glucose,Whole Blood 148 mg/dL (75-99)
[2019-06-29] MEDS: methylPREDNISolone SOD SUCCI 125 MG/2 ML VIAL IV SCH ×4 (00:34→17:15)
[2019-06-29] MEDS: AMPICILLIN-SULBACTAM 3 GM in SODIUM CHLORIDE 0.9% 100 ML IVPB SCH ×4 (00:34→17:15)
[2019-06-29] MEDS: DEXTROSE 5% IN WATER 1,000 ML IV SCH ×6 (00:35→17:17)
[2019-06-29 01:14] LABS: Glucose,Whole Blood 176 mg/dL (75-99)
[2019-06-29 01:44] LABS: Glucose,Whole Blood 170 mg/dL (75-99)
[2019-06-29 02:09] LABS: Glucose,Whole Blood 163 mg/dL (75-99)
[2019-06-29] MEDS: PROPOFOL 1,000 MG in EMPTY BAG 1 BAG IV SCH ×8 (02:11→22:51)
[2019-06-29] MEDS: INSULIN REGULAR 100 UNIT in SODIUM CHLORIDE 0.9% 100 ML IV SCH ×3 (02:12→21:04)
[2019-06-29] MEDS: VANCOMYCIN 1,500 MG in SODIUM CHLORIDE 0.9% 250 ML IVPB SCH ×2 (02:18→12:59)
[2019-06-29 04:22] LABS: Glucose,Whole Blood 139 mg/dL (75-99)
[2019-06-29 04:41] LABS: HCT 30.5 % (39.0-53.0); HGB 9.9 gm/dL (13.0-17.5); Hypochromasia Slight; MCH 31.8 pg (25.0-35.0); MCHC 32.5 g/dL (31.0-37.0); Mean Platelet Volume 9.2; Platelet Count 224 k/uL (150-450); RBC 3.12 m/uL (4.30-5.90); RDW 14.2 % (11.5-15.5); WBC 12.1 k/uL (3.8-10.6)
[2019-06-29 04:50] LABS: Calcium 7.3 mg/dL (8.4-10.2); Potassium 4.6 mmol/L (3.5-5.1)
[2019-06-29 05:19] LABS: Glucose,Whole Blood 192 mg/dL (75-99)
[2019-06-29 05:22] LABS: ABG Base Excess 5.7 mmol/L; ABG HCO3 31 mmol/L (21-25); ABG Oxygen Saturation 93.5 % (94-97); ABG PCO2 49 mmHg (35-45); ABG PO2 74 mmHg (83-108); ABG TCO2 32 mmol/L (19-24); Allen Test Performed? Yes
[2019-06-29] MEDS: CISATRACURIUM 200 MG in SODIUM CHLORIDE 0.9% 180 ML IV SCH (06:02)
[2019-06-29 06:22] LABS: Glucose,Whole Blood 222 mg/dL (75-99)
[2019-06-29 07:13] LABS: Glucose,Whole Blood 193 mg/dL (75-99)
[2019-06-29] MEDS ORDERED: DEXTROSE 5% IN WATER 100 ML with AMIODARONE 150 MG IV ONE (08:06)
[2019-06-29] MEDS ORDERED: DEXTROSE 5% IN WATER 250 ML with AMIODARONE 300 MG IV ONE (08:06)
[2019-06-29 08:22] LABS: Glucose,Whole Blood 160 mg/dL (75-99)
[2019-06-29] MEDS: BUDESONIDE 1 MG/2 ML NEBU INHALATION SCH ×2 (08:23→19:52)
[2019-06-29] MEDS: FORMOTEROL FUMARATE 20 MCG/2 ML NEBU INHALATION SCH ×2 (08:23→19:52)
[2019-06-29] MEDS: IPRATROPIUM-ALBUTEROL 3 ML NEB INHALATION SCH ×4 (08:23→19:52)
--- NOTE | 2019-06-29 09:02 | CONS ---
CONSULTATION Mr. Stone Law is a 54-year-old gentleman with a known history of persistent atrial fibrillation, and also has flutter ablation. In 2018, this gentleman had a complete EP study and no accessory pathway was noted and there was successful ablation for atrial flutter performed. Patient was then scheduled to have a fibrial ablation which I am not sure if it was performed or not. This hospitalization for this patient was mainly with increasing shortness of breath and pneumonia-type picture and he came into the hospital on the of this month with a worsening shortness of breath. He was hospitalized and received some breathing treatments and subsequently was seen by Dr. David on the and he has been he progressively getting worse. And has been now on a ventilator and yesterday had a bronchoscopy with lavage and a foreign body was also discovered. I am seeing him mainly because of atrial fibrillation with rapid ventricular rate, which is not a new problem, but the rate apparently has increased. On 06/28/2019, which is yesterday, he had a bronchoscopy with lavage performed, a foreign body was noted but was not retrieved because his oxygen saturation was dropping. The fluid was sent for cytology and culture. Patient is intubated on a ventilator. I am unable to obtain any meaningful history from him. However, patient is in atrial fibrillation with underlying IVCD, rate is about 130 or so. He is on antibiotics. He is hemodynamically fairly stable. He is not new. He is also on a small dose of a Levophed drip to support his blood pressure. Please refer to the detailed note by Dr. David for and for other information. The patient's rhythm is atrial fib rate is moderately rapid. He is deeply sedated on a small dose of Levophed. He is also on 15 mg/hour of Cardizem. He was on Xarelto but this was held mainly because he is going to have a PICC line today. PHYSICAL [place]AMIN[place]: [place] [address], pulse rate 128 per minute irregular HEENT lymph exam unremarkable. Fundus was not examined. NECK: Supple there is JVD 1 cm no carotid bruit heart exam reveals S1, S2 with tachycardia short systolic murmur. Lungs reveal diminished air entry in bilateral lung dewitt. The respiratory assisted breath sounds are audible. Abdomen is soft, nontender. Lower extremities reveal diminished pulses central nervous system limited exam was performed. IMPRESSION: 1. Acute respiratory failure with pneumonia exacerbation of chronic obstructive pulmonary disease. 2. Chronic persistent atrial fibrillation. 3. Foreign body noted in the respiratory tract of unclear etiology. 4. Acute kidney injury which has Re improved and resolved. #4. 5. His status post flutter ablation. RECOMMENDATIONS: I am recommending that we discontinue oral amiodarone, start him on amiodarone bolus and drip. Decrease the Cardizem to 10 mg/hour. Resume Xarelto as soon as possible and obtain a bedside echocardiogram limited study to assess LV function. I discussed my thoughts in detail with the nurse. Thank you very much for the consult. MMODL / IJN: [id number] /
[2019-06-29] MEDS: FUROSEMIDE 10 MG/ML 4 ML VIAL IV SCH ×2 (09:08→20:48)
[2019-06-29] MEDS: LISINOPRIL 5 MG TAB PO SCH (09:08)
[2019-06-29] MEDS: POLYETHYLENE GLYCOL 3350 17 GM POWD.PACK PO SCH (09:10)
[2019-06-29] MEDS: METOPROLOL TARTRATE 50 MG TAB PO SCH ×2 (09:13→20:48)
[2019-06-29] MEDS: CHLORHEXIDINE GLUCONATE 15 ML CUP MUCOUS MEM SCH ×2 (09:13→20:48)
[2019-06-29] MEDS: PARoxetine 20 MG TAB PO SCH (09:13)
[2019-06-29] MEDS: NICOTINE 14MG/24HR PATCH TRANSDERM SCH (09:14)
[2019-06-29] MEDS: PANTOPRAZOLE 40 MG/10 ML VIAL IVP SCH (09:14)
[2019-06-29 09:15] LABS: Glucose,Whole Blood 133 mg/dL (75-99)
[2019-06-29 10:11] LABS: Glucose,Whole Blood 128 mg/dL (75-99)
[2019-06-29] MEDS ORDERED: AMIODARONE 360 MG in DEXTROSE 5% IN WATER 200 ML IV ONE ×2 (10:12)
--- NOTE | 2019-06-29 10:27 | P.PN ---
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 Presents on 06/20/2019 with respiratory distress. Status post intubation and placed on mechanical ventilation on 06/21/2019 patient is being the ICU and he followed closely by pulmonary/critical care team with Dr. David as well as infectious team. Patient was found to have acute COPD exacerbation, right pneumonia secondary to MRSA and Acetobacter, patient is on antibiotics with Unasyn and IV vancomycin, his also on some Detrol 60 mg, Xarelto 20 mg daily and he is also on CIWA protocol. He is on oral Lasix. He got 1 dose of Lasix yesterday, he is saturating 89% on 70 FiO2, his ABG showing pO2 of 54, as per pulmonary team his mechanical ventilation has been adjusted after that with recommendation to repeat ABG in 4 hours. Today patient has a rash in the upper chest. He has to regular bowel movements 06/27/2019 Patient remains in the ICU, intubated and sedated. He still have thick secretions. Chest x-ray showing interstitial prominence and patient is still spiking fever at 100.8 today. Patient remains on antibiotics with Unasyn and IV vancomycin and infectious and pulmonary team R following the case closely. He remains on mechanical ventilation with FiO2 of 70%, PEEP of 10 and tidal volume of 450 as per management by critical-care team. His creatinine is slightly increased to 1.4 and Sodium 157 and he is on D5 W at 75 mL/h and water flushes with 60 mL via OG tube every 4 hours. Nutritional consult is ordered. Follow-up sodium level. Also patient on IV Lasix for possible fluid overload. Continue with Solu-Medrol 60 mg on Xarelto 20 mg. Also he is on CIWA protocol His upper chest rash started feeling 06/28/2019 Patient remains in the ICU, he developed A. fib yesterday and hypertension. Patient was started on amiodarone drip and he needed small dose of Levophed, since this morning his Levophed was stopped, his blood pressure was low normal and holding up. However he remains on admission down drip. Patient has history of cardiomyopathy and ejection fraction of 30-35% and he follow-up with Dr. Harper. Without the consult cardiology team. Patient also planned to go for bronchoscopy today at PICC line placement. There is a small bolus of 210 mL yesterday. His WBC is 12.9k, sodium is improving to 150. Creatinine back to normal at 1.1. Sugar is 200-300.he is on insulin but his labile under going to switch him to insulin sliding scale with close monitoring. Yesterday he still had fever at 100-101.5. He remains on Unasyn and IV vancomycin. He is also on IV Lasix 40 mg twice daily, he is on CIWA protocol ulcers on steroids on Medrol 60 mg in D5 W at 100 mL per hour 06/29/2019 Patient in the ICU, still intubated on mechanical ventilation with FiO2 of 70%, PEEP is 10 and tidal volume of 450 as per management by the pulmonary/critical care team who are following the patient very closely. His sodium came down to 146 and his D5 W is lowered 50 mL/h. Cardiology input is appreciated and he was switched to amiodarone drip, his blood pressure improved and the defect was stopped for now however it remains on the low normal side and needs close monitoring. Pulmonary team are planning to repeat bronchoscopy today as per staff. Vitals and labs reviewed. Sugar controlled. Continue with antibiotics as per ID team Review of system: N/a Active Medications Generic Name Dose Route Start Last Admin Trade Name Freq PRN Reason Stop Dose Admin Acetaminophen 650 mg 06/23/19 20:15 06/27/19 04:39 Tylenol Tab PO 650 mg Q6HR PRN Administration Fever and/ or Pain Hydrocodone Bitart/Acetaminophen 1 each 06/20/19 14:40 06/20/19 18:25 [place] 7.5-325 PO 1 each Q6H PRN Administration Pain Albuterol Sulfate 2.5 mg 06/20/19 07:12 06/21/19 00:31 Ventolin Nebulized INHALATION 2.5 mg RT-Q4H PRN Administration Dyspnea Albuterol/Ipratropium 3 ml 06/20/19 08:00 06/29/19 08:23 Duoneb 0.5 Mg-3 Mg/3 Ml Soln INHALATION 3 ml RT-QID RENZO Administration Albuterol/Ipratropium 3 ml 06/20/19 14:58 06/27/19 03:54 Duoneb 0.5 Mg-3 Mg/3 Ml Soln INHALATION 3 ml RT-QID PRN Administration Shortness Of Breath Or Wheezing Atorvastatin Calcium 10 mg 06/20/19 21:00 06/28/19 21:20 Lipitor PO 10 mg HS RENZO Administration Budesonide 1 mg 06/20/19 20:00 06/29/19 08:23 Pulmicort INHALATION 1 mg RT-BID RENZO Administration Chlorhexidine Gluconate 15 ml 06/21/19 09:00 06/29/19 09:13 Peridex MUCOUS MEM 15 ml BID RENZO Administration Diphenhydramine HCl 25 mg 06/26/19 13:29 06/26/19 13:47 Benadryl IVP 25 mg Q6HR PRN Administration Allergy Symptoms Ergocalciferol 50,000 unit 06/21/19 09:00 06/28/19 08:30 Vitamin D2 PO Not Given [id number] [facility] Formoterol Fumarate 20 mcg 06/20/19 20:00 06/29/19 08:23 Perforomist INHALATION 20 mcg RT-BID RENZO Administration Furosemide 40 mg 06/25/19 22:15 06/29/19 09:08 Lasix IV Not Given Q12HR [facility] Propofol 1,000 mg/ IV Solution 100 mls @ 0 mls/hr 06/21/19 01:45 06/29/19 08:04 IV 60 mcg/kg/min .Q0M RENZO 33.732 mls/hr Administration Protocol Titrate Cisatracurium Besylate 200 mg/ 200 mls @ 4.899 mls/hr 06/21/19 03:15 06/29/19 06:02 Sodium Chloride IV Not Given .Q24H RENZO Protocol 1 MCG/KG/MIN Norepinephrine Bitartrate 4 mg 254 mls @ 15.554 mls/hr 06/21/19 03:15 0 07:13 / Sodium Chloride IV 0.02 mcg/kg/min .[id number] RENZO 6.222 mls/hr Titration Protocol 0.05 MCG/KG/MIN Ampicillin Sodium/Sulbactam 100 mls @ 200 mls/hr 06/24/19 12:45 06/29/19 06:05 Sodium 3 gm/ Sodium Chloride IVPB 200 mls/hr Q6HR RENZO Administration Vancomycin HCl 1,500 mg/ 250 mls @ 125 mls/hr 06/24/19 13:00 06/29/19 02:18 Sodium Chloride IVPB 125 mls/hr Q12H RENZO Administration Insulin Human Regular 100 unit 101 mls @ 0 mls/hr 06/25/19 06:15 06/29/19 09:05 / Sodium Chloride IV 0 mls/hr .Q0M RENZO 0 mls/hr Titration Protocol Per Protocol Dextrose/Water 1,000 mls @ 100 mls/hr 06/27/19 14:15 06/29/19 08:24 Dextrose 5%-Water Iv Soln IV Not Given .Q10H RENZO Diltiazem HCl 125 mg/ Sodium 125 mls @ 0 mls/hr 06/28/19 01:15 06/28/19 21:48 Chloride IV 15 mls/hr .Q0M RENZO 15 mls/hr Administration Protocol Per Protocol Dextrose/Water 1,000 mls @ 50 mls/hr 06/29/19 10:00 Dextrose 5%-Water Iv Soln IV .Q20H RENZO Amiodarone HCl 360 mg/ 200 mls @ 33.333 mls/hr 06/29/19 10:12 Dextrose/Water IV 06/29/19 16:11 .Q6H ONE Protocol 1 MG/MIN Amiodarone HCl 300 mg/ 250 mls @ 25 mls/hr 06/29/19 16:12 Dextrose/Water IV 06/30/19 10:11 .Q10H RENZO Protocol 0.5 MG/MIN Lisinopril 5 mg 06/20/19 15:15 06/29/19 09:08 Zestril PO Not Given DAILY RENZO Lorazepam 1 mg 06/20/19 20:29 06/25/19 05:27 Ativan IV 1 mg Q2HR PRN Administration CIWA 8 or 9 Lorazepam 1 mg 06/20/19 20:29 Ativan IV Q1HR PRN CIWA 10 to 15 Lorazepam 4 mg 06/25/19 07:13 06/25/19 13:43 Ativan IV 4 mg Q2HR PRN Administration Anxiety Methylprednisolone Sodium Succinate 60 mg 06/20/19 18:00 06/29/19 06:05 Solu-Medrol IV 60 mg Q6HR RENZO Administration Metoprolol Tartrate 50 mg 06/20/19 21:00 06/29/19 09:13 Lopressor PO 50 mg BID RENZO Administration Miscellaneous Information 1 each 06/28/19 05:01 Potassium Per Protocol MISCELLANE DAILY PRN Per Protocol Protocol Miscellaneous Information 0 each 06/30/19 12:00 Vancomycin Trough Due MISCELLANE 06/30/19 12:01 DIRECTED ONE Montelukast Sodium 10 mg 06/20/19 21:00 06/28/19 21:20 Singulair PO 10 mg HS RENZO Administration Morphine Sulfate 2 mg 06/21/19 10:04 06/25/19 11:51 Morphine Sulfate (Inj) IVP 2 mg Q2H PRN Administration Pain/Discomfort Multivitamins 1 each 06/21/19 12:00 06/28/19 13:16 Theragran PO 1 each DAILY@1200 RENZO Administration Naloxone HCl 0.2 mg 06/20/19 22:43 Narcan IV Q2M PRN Opioid Reversal Nicotine 1 patch 06/20/19 15:15 06/29/19 09:14 Habitrol 14mg/24hr Patch TRANSDERM 1 patch DAILY RENZO Administration Pantoprazole Sodium 40 mg 06/21/19 09:00 06/29/19 09:14 Protonix IVP 40 mg DAILY RENZO Administration Paroxetine HCl 40 mg 06/20/19 15:15 06/29/19 09:13 Paxil PO 40 mg DAILY RENZO Administration Polyethylene Glycol 17 gm 06/21/19 09:00 06/29/19 09:10 Miralax PO Not Given DAILY RENZO Quetiapine Fumarate 100 mg 06/20/19 21:00 06/28/19 21:20 Seroquel PO 100 mg HS RENZO Administration Objective - Vital Signs Vital signs: Vital Signs Temp 99.1 F 06/29/19 04:00 Pulse 132 H 06/29/19 08:43 Resp 15 06/29/19 07:00 BP 90/77 06/29/19 07:00 Pulse Ox 94 L 06/29/19 07:00 Intake & Output 06/28/19 06/29/19 06/29/19 18:59 06:59 18:59 Intake Total 3553.578 3249.338 793.842 Output Total 1090 1490 285 Balance 2463.578 1759.338 508.842 Weight 93.7 kg 96.8 kg Intake: IV 475 350 Ampicillin-Sulbactam 3 gm 200 100 In Sodium Chloride 0.9% 100 ml @ 200 mls/hr IVPB Q6HR RENZO Rx#:[id number] Vancomycin 1,500 mg In 250 250 Sodium Chloride 0.9% 250 ml @ 125 mls/hr IVPB Q12H REN[facility] Rx#:[id number] Intake, IV Titration 2338.578 1909.338 673.842 Amount Ampicillin-Sulbactam 3 gm 100 In Sodium Chloride 0.9% 100 ml @ 200 mls/hr IVPB Q6HR RENZO Rx#:[id number] Dextrose 5% in Water 1, 800 100 000 ml @ 100 mls/hr IV . Q10H RENZO Rx#:[id number] Dextrose 5% in Water 1, 1200 400 000 ml @ 100 mls/hr IV . Q10H R[facility] Rx#:[id number] Dextrose 5% in Water 1, 200 000 ml @ 50 mls/hr IV . Q20H [facility] Rx#:[id number] Dextrose 5% in Water 100 100 ml @ 618 mls/hr IV .Q10M ONE with Amiodarone 150 mg Rx#:[id number] Diltiazem 125 mg In 89.667 82.5 Sodium Chloride 0.9% 100 ml @ Per Protocol IV .Q0M [facility] Rx#:[id number] Insulin Regular 100 unit 147.600 124.20 57.684 In Sodium Chloride 0.9% 100 ml @ Per Protocol IV .Q0M [facility] Rx#:[id number] Norepinephrine 4 mg In 119.094 35.880 123.395 Sodium Chloride 0.9% 250 ml @ 0.05 MCG/KG/MIN 15. 554 mls/hr IV .[id number] [facility] Rx#:[id number] Propofol 1,000 mg In 282.217 366.758 92.763 Empty Bag 1 bag @ Titrate IV .Q0M REN[facility] Rx#: [id number] Sodium Chloride 0.9% 500 500 ml 500 ml @ 999 mls/hr IV .Q31M ONE Rx#:[id number] Tube Feeding 240 240 20 Other 500 750 100 Output: Urine 1090 1490 285 Other: Voiding Method Indwelling Catheter Indwelling Catheter ABP, PAP, CO, CI - Last Documented Arterial Blood Pressure 128/63 - Exam -GENERAL: The patient is intubated and sedated HEENT: Pupils are round and equally reacting to light. EOMI. No scleral icterus. No conjunctival pallor. Normocephalic, atraumatic. No pharyngeal erythema. No thyromegaly. CARDIOVASCULAR: S1 and S2 present. No murmurs, rubs, or gallops. -PULMONARY: Chest is clear to auscultation, Decreased air entry on both sides with scattered wheezing and crepitation especially in the basal lung zones ABDOMEN: Soft, nontender, nondistended, normoactive bowel sounds. No palpable organomegaly. MUSCULOSKELETAL: No joint swelling or deformity. -EXTREMITIES: No cyanosis, clubbing,. Mild bilateral leg edema NEUROLOGICAL: Gross neurological examination did not reveal any focal deficits. Exam is limited by patient condition SKIN: No rashes. no petechiae. - Labs CBC & Chem 7: 06/29/19 04:10 06/29/19 04:10 Labs: Abnormal Lab Results - Last 24 Hours (Table) 06/28/19 06/28/19 06/28/19 Range/Units 11:14 12:03 13:22 WBC (3.8-10.6) k/uL RBC (4.30-5.90) m/uL Hgb (13.0-17.5) gm/dL Hct (39.0-53.0) % ABG pCO2 (35-45) mmHg ABG pO2 (83-108) mmHg ABG HCO3 (21-25) mmol/L ABG Total CO2 (19-24) mmol/L ABG O2 Saturation (94-97) % Sodium (137-145) mmol/L Chloride (98-107) mmol/L Carbon Dioxide (22-30) mmol/L BUN (9-20) mg/dL Glucose (74-99) mg/dL POC Glucose (mg/dL) 226 H 206 H 120 H (75-99) mg/dL Calcium (8.4-10.2) mg/dL 06/28/19 06/28/19 06/28/19 Range/Units 14:10 15:06 16:11 WBC (3.8-10.6) k/uL RBC (4.30-5.90) m/uL Hgb (13.0-17.5) gm/dL Hct (39.0-53.0) % ABG pCO2 (35-45) mmHg ABG pO2 (83-108) mmHg ABG HCO3 (21-25) mmol/L ABG Total CO2 (19-24) mmol/L ABG O2 Saturation (94-97) % Sodium (137-145) mmol/L Chloride (98-107) mmol/L Carbon Dioxide (22-30) mmol/L BUN (9-20) mg/dL Glucose (74-99) mg/dL POC Glucose (mg/dL) 100 H 100 H 165 H (75-99) mg/dL Calcium (8.4-10.2) mg/dL 06/28/19 06/28/19 06/28/19 Range/Units 17:00 17:52 18:58 WBC (3.8-10.6) k/uL RBC (4.30-5.90) m/uL Hgb (13.0-17.5) gm/dL Hct (39.0-53.0) % ABG pCO2 (35-45) mmHg ABG pO2 (83-108) mmHg ABG HCO3 (21-25) mmol/L ABG Total CO2 (19-24) mmol/L ABG O2 Saturation (94-97) % Sodium (137-145) mmol/L Chloride (98-107) mmol/L Carbon Dioxide (22-30) mmol/L BUN (9-20) mg/dL Glucose (74-99) mg/dL POC Glucose (mg/dL) 195 H 202 H 189 H (75-99) mg/dL Calcium (8.4-10.2) mg/dL 06/28/19 06/28/19 06/28/19 Range/Units 19:53 21:08 22:06 WBC (3.8-10.6) k/uL RBC (4.30-5.90) m/uL Hgb (13.0-17.5) gm/dL Hct (39.0-53.0) % ABG pCO2 (35-45) mmHg ABG pO2 (83-108) mmHg ABG HCO3 (21-25) mmol/L ABG Total CO2 (19-24) mmol/L ABG O2 Saturation (94-97) % Sodium (137-145) mmol/L Chloride (98-107) mmol/L Carbon Dioxide (22-30) mmol/L BUN (9-20) mg/dL Glucose (74-99) mg/dL POC Glucose (mg/dL) 153 H 121 H 148 H (75-99) mg/dL Calcium (8.4-10.2) mg/dL 06/28/19 06/29/19 06/29/19 Range/Units 23:07 00:04 00:45 WBC (3.8-10.6) k/uL RBC (4.30-5.90) m/uL Hgb (13.0-17.5) gm/dL Hct (39.0-53.0) % ABG pCO2 (35-45) mmHg ABG pO2 (83-108) mmHg ABG HCO3 (21-25) mmol/L ABG Total CO2 (19-24) mmol/L ABG O2 Saturation (94-97) % Sodium (137-145) mmol/L Chloride (98-107) mmol/L Carbon Dioxide (22-30) mmol/L BUN (9-20) mg/dL Glucose (74-99) mg/dL POC Glucose (mg/dL) 138 H 148 H 176 H (75-99) mg/dL Calcium (8.4-10.2) mg/dL 06/29/19 06/29/19 06/29/19 Range/Units 01:14 01:58 04:10 WBC (3.8-10.6) k/uL RBC (4.30-5.90) m/uL Hgb (13.0-17.5) gm/dL Hct (39.0-53.0) % ABG pCO2 (35-45) mmHg ABG pO2 (83-108) mmHg ABG HCO3 (21-25) mmol/L ABG Total CO2 (19-24) mmol/L ABG O2 Saturation (94-97) % Sodium 146 H (137-145) mmol/L Chloride 111 H (98-107) mmol/L Carbon Dioxide 31 H (22-30) mmol/L BUN 64 H (9-20) mg/dL Glucose 140 H (74-99) mg/dL POC Glucose (mg/dL) 170 H 163 H (75-99) mg/dL Calcium 7.3 L (8.4-10.2) mg/dL 06/29/19 06/29/19 06/29/19 Range/Units 04:10 04:10 05:08 WBC 12.1 H (3.8-10.6) k/uL RBC 3.12 L (4.30-5.90) m/uL Hgb 9.9 L (13.0-17.5) gm/dL Hct 30.5 L (39.0-53.0) % ABG pCO2 (35-45) mmHg ABG pO2 (83-108) mmHg ABG HCO3 (21-25) mmol/L ABG Total CO2 (19-24) mmol/L ABG O2 Saturation (94-97) % Sodium (137-145) mmol/L Chloride (98-107) mmol/L Carbon Dioxide (22-30) mmol/L BUN (9-20) mg/dL Glucose (74-99) mg/dL POC Glucose (mg/dL) 139 H 192 H (75-99) mg/dL Calcium (8.4-10.2) mg/dL 06/29/19 06/29/19 06/29/19 Range/Units 05:19 06:11 07:02 WBC (3.8-10.6) k/uL RBC (4.30-5.90) m/uL Hgb (13.0-17.5) gm/dL Hct (39.0-53.0) % ABG pCO2 49 H (35-45) mmHg ABG pO2 74 L (83-108) mmHg ABG HCO3 31 H (21-25) mmol/L ABG Total CO2 32 H (19-24) mmol/L ABG O2 Saturation 93.5 L (94-97) % Sodium (137-145) mmol/L Chloride (98-107) mmol/L Carbon Dioxide (22-30) mmol/L BUN (9-20) mg/dL Glucose (74-99) mg/dL POC Glucose (mg/dL) 222 H 193 H (75-99) mg/dL Calcium (8.4-10.2) mg/dL 06/29/19 06/29/19 06/29/19 Range/Units 08:10 09:04 10:00 WBC (3.8-10.6) k/uL RBC (4.30-5.90) m/uL Hgb (13.0-17.5) gm/dL Hct (39.0-53.0) % ABG pCO2 (35-45) mmHg ABG pO2 (83-108) mmHg ABG HCO3 (21-25) mmol/L ABG Total CO2 (19-24) mmol/L ABG O2 Saturation (94-97) % Sodium (137-145) mmol/L Chloride (98-107) mmol/L Carbon Dioxide (22-30) mmol/L BUN (9-20) mg/dL Glucose (74-99) mg/dL POC Glucose (mg/dL) 160 H 133 H 128 H (75-99) mg/dL Calcium (8.4-10.2) mg/dL Microbiology - Last 24 Hours (Table) 06/28/19 13:30 Gram Stain - Preliminary Bronchoalviolar Lavage - Right Bronchial Washings Culture - Preliminary 06/28/19 13:30 Acid Fast Bacilli Culture - Preliminary Bronchoalviolar Lavage - Right 06/28/19 13:30 Fungal Culture - Preliminary Bronchoalviolar Lavage - Right 06/23/19 19:30 Blood Culture - Preliminary Blood No Growth after 120 hours Assessment and Plan Assessment: Right pneumonia secondary to MRSA and Acinetobacter Acute tracheobronchitis Acute hypoxic respiratory failure Acute COPD exacerbation A. fib with RVR Vascular shock, multifactorial to be infection and cardiogenic Bilateral pleural effusion, right more than left Erythematous rash in the upper chest mild Acute kidney injury Right thyroid nodule Pulmonary artery hypertension Acute kidney injury, present on admission. Resolved Hypernatremia History of PE on Xarelto Chronic nonischemic cardiomyopathy with ejection fraction 30-35% Chronic A. fib Hypothyroidism Chronic alcohol abuse Nicotine dependence Hyperlipidemia Hypertension History of gravis disease History of squamous cell cancer of the skin with removal Plan: This is a 54 years old male who is mechanically ventilated. Patient is followed closely by infectious disease and pulmonary/critical care teams and follow-up recommendation. Continue with antibiotics as per ID team, continue with steroids, continue with his alcohol withdrawal treatment, continue with CIWA protocol. Continue with D5W and water flushes follow-up sodium level. Consult cardiology for his A. fib and low ejection fraction. Continue with insulin Labs and medication were reviewed.. Continue same treatment. Continue with symptomatic treatment. Resume home medication. Monitor lytes and vitals. DVT and GI prophylaxis. Further recommendations of the clinical course of the patient DVT prophylaxis: Xarelto GI Prophylaxis: PPI Prognosis is remains critically guarded
--- NOTE | 2019-06-29 11:19 | XR ---
EXAMINATION TYPE: XR chest 1V portable DATE OF EXAM: 06/29/2019 COMPARISON: 06/28/2019 HISTORY: Ventilatory dependent respiratory failure. TECHNIQUE: Single frontal view of the chest is obtained. FINDINGS: Similar placement of the enteric and endotracheal tubes. Multiple old healed right rib fra ctures are again seen. Bibasilar opacities are also similar from the prior. Blunting of costophrenic angles is seen. Enlarged cardiac mediastinal silhouette. IMPRESSION: Similar exam to the prior 06/28/2019 with bibasilar airspace disease and trace pleural ef fusions.
[2019-06-29] MEDS: MULTIVITAMINS, THERA 1 EACH TAB PO SCH (11:30)
[2019-06-29 11:46] LABS: Glucose,Whole Blood 138 mg/dL (75-99)
[2019-06-29 12:59] LABS: Glucose,Whole Blood 213 mg/dL (75-99)
[2019-06-29] MEDS: NOREPINEPHRINE 4 MG in SODIUM CHLORIDE 0.9% 250 ML IV SCH (13:02)
--- NOTE | 2019-06-29 13:49 | ECHOF ---
Referral Reason:Afib, Resp Failure MEASUREMENTS -------- HEIGHT: 165.1 cm WEIGHT: 96.6 kg BP: Ao Diam: 3.4 cm (2.0 - 3.7) AV Cusp: 2.2 cm (1.5 - 2.6) LA Diam: 3.8 cm (2.7 - 3.8) MV E Aris: 0.78 m/s MV DecT: 217 ms MV A Aris: 0.37 m/s MV E/A Ratio: 2.11 RAP: 5.00 mmHg RVSP: 9.42 mmHg FINDINGS -------- Atrial fibrillation. This was a technically difficult study with suboptimal views. Pt. on a vent. There is normal global left ventricular contractility. Overall left ventricular systolic function i s low-normal with, an EF between 50 - 55 %. The RV was not well visualized. The left atrium was not well visualized. The right atrium was not well visualized. Lumason used The aortic valve was not well visualized. The mitral valve was not well visualized. The tricuspid valve was not well visualized. The pulmonic valve was not well visualized. CONCLUSIONS -------- 1. Atrial fibrillation. 2. This was a technically difficult study with suboptimal views. 3. Pt. on a vent. 4. There is normal global left ventricular contractility. 5. Overall left ventricular systolic function is low-normal with, an EF between 50 - 55 %. 6. The RV was not well visualized. 7. The left atrium was not well visualized. 8. The right atrium was not well visualized. 9. Lumason used 10. The aortic valve was not well visualized. 11. The mitral valve was not well visualized. 12. The tricuspid valve was not well visualized. 13. The pulmonic valve was not well visualized. MASTIC WORKER: Rosa Moody [facility]
[2019-06-29 14:03] LABS: Glucose,Whole Blood 234 mg/dL (75-99)
[2019-06-29] MEDS ORDERED: CISATRACURIUM 2 MG/ML 5 ML VIAL IV ONE ×2 (14:59→23:36)
[2019-06-29 15:16] LABS: Glucose,Whole Blood 170 mg/dL (75-99)
[2019-06-29 15:56] LABS: Appearance,Urine Cloudy (Clear); Bilirubin,Urine Negative (Negative); Blood,Urine Small (Negative); Budding Yeast,Urine Few /hpf; Color,Urine Yellow; Glucose,Urine (UA) 2+ (Negative); Ketones,Urine Negative (Negative); Leukocyte Esterase,Urine Negative (Negative); Mucus,Urine Rare /hpf; Nitrite,Urine Negative (Negative); PH, Urine 5.5 (5.0-8.0); Protein,Urine Negative (Negative); RBC,Urine 60 /hpf (0-5); Specific Gravity,Urine 1.023 (1.001-1.035); Urobilinogen,Urine <2.0 mg/dL (<2.0); WBC,Urine 1 /hpf (0-5)
--- NOTE | 2019-06-29 16:29 | P.PN ---
Subjective Progress Note Date: 06/29/19 Principal diagnosis: Polymicrobial pneumonia associated with Acinetobacter and Staph Acute hypoxic and hypercapnic respiratory failure Acute COPD exacerbation Mild hyper natremia Fluid overload Cardiomyopathy nonischemic baseline ejection fraction 35%, chronic systolic heart failure Chronic atrial flutter fibrillation History of fall with multiple rib fracture pneumothorax History of extensive smoking and nicotine use 06/29/2019, patient remains on same vent elicited ventilator setting with SIMV rate of 10 tidal volume of 500 PEEP of 5 which is, oxygen as well as very thick purulent secretions in the lung patient is elected for bronchoscopy, patient remains on PEEP of 10 with SIMV pressure support, tube feedings given patient developed labs A. fib with rapid ventricular response requiring Cardizem drip and will obtain a PICC line and will undergo bronchoscopy as well for foreign body t, sodium remains high patient is on D5 and free water, critical care time 35 minutes 06/28/2019, patient seen eval reexamined during the rounds labs reviewed medications reviewed due to increased requirement for oxygen as well as very thick purulent secretions in the lung patient is elected for bronchoscopy, patient remains on PEEP of 10 with SIMV pressure support, tube feedings given patient developed labs A. fib with rapid ventricular response requiring Cardizem drip and will obtain a PICC line and will undergo bronchoscopy as well for pulmonary toilet, sodium remains high patient is on D5 and free water, critical care time 35 minutes 06/27/2019, patient seen eval examined during the rounds labs reviewed medications reviewed sodium level is still high we'll increase the free water, patient remains on SIMV mode with pressure support and PEEP of 10 FiO2 70% ABGs are stable, thick pulmonary secretions are present, culture reports are reviewed, patient remains on broad-spectrum antibiotics, to feed as tolerated well, due to elevated sugar patient is on insulin drip, remains on propofol, once FiO2 improve will restart weaning critical care time 35 minutes 06/26/2019, patient seen eval examined during the rounds went setting have been adjusted patient is switched to SIMV with pressure support he seems to be doing with better with this setting PEEP was increased to 10 FiO2 is improved pH has improved however patient has hypernatremia she has been started on D5, computed tomography scan of the head as well as the chest has been performed which is rev iewed, extensive emphysema and bibasilar infiltrates are seen, patient remains on propofol drip off of vasopressors now, labs reviewed medications reviewed care plan discussed with Her family members at length, once oxygenation is improved gradually will wean down the ventilator setting, 06/25/2019, patient seen eval examined during the rounds labs reviewed medications reviewed patient continued to be hypoxic today is for the first time she is -730 mL his urine output is fairly adequate about 50 60/h but has been declining, he is on 40 mg of IV Lasix will increase it to twice a day, his NG tu be is changed OG tube, the cellulitis that he has on neck and upper chest seems to be slowly progressing, patient has been switched to antibiotics currently on ampicillin along with IV vancomycin, his went setting includes assist control rate of 16 tidal volume of 500 PEEP has been escalated to 8, FiO2 is 70% with that saturation is 90 urine 94%, he is off of vasopressors, his cultures are growing Acinetobacter and MRSA in the sputum, he is tolerating tube feed very well, patient is being replaced on hypokalemia 06/24/2019, patient seen and evaluated examined during the rounds labs reviewed medications reviewed patient came back positive for Acinetobacter and Staph in the sputum, he remains hemodynamically stable off of vasopressors, however he is positive almost 10-15 L, patient has a good response with Lasix given this morning we'll put on a daily basis also patient has mild hypernatremia S patient is tolerating tube feed will DC the extra IV fluids, we'll continue to titrate propofol down as tolerated plan to do weaning tomorrow, labs reviewed medications reviewed care plan discussed with the staff at length FiO2 is slightly increased to 60% and likely related to fluid overload 06/23/2019, patient seen eval examined during the rounds patient is off of vasopressors off of the medical paralysis however remains on the propofol 70 mics, patient is deeply sedated remains on assist control rate of 16 tidal volume of 505 of PEEP and FiO2 down to 40%, chest x-ray reviewed overall remains stable patient is being treated for bilateral pneumonia, tomorrow we'll taper down the sedation and see if a CPAP of 5 trial with pressure support can be done continued to feed for now repeat labs and x-ray tomorrow 06/22/2019, patient seen eval reexamined during the rounds, Nimbex drip have been tapered and DC'd, patient remains on full ventilator support, fall was attempted to wean down but patient becomes anxious and agitated he does intermittently open eyes, he remains on assist control mode rate of 16 and tidal volume of 500+5 of PEEP and 50% oxygen, white cell count is 4000 with stable hemoglobin of 710.6, arterial blood gases on above vent setting include pH is 7.32 pCO2 30 and pO2 109 FiO2 subsequently decreased to 40%, order have been placed restart the tube feed patient remains on vancomycin and high-dose Rocephin, patient has been evaluated by infectious disease services the pretest probability of the meningitis is low but he remains on emperic therapy, will wean down the propofol further and reassess the mental status and try to wean as tolerated, chest x-ray showed right lower lobe pneumonia and a small effusion 06/21/2019, patient seen eval reexamined during the rounds events from earlier this morning noted patient developed respiratory distress and severe metabolic acidosis likely related to acute COPD exacerbation and severe sepsis from unknown source, patient was intubated due to severe agitation patient has been started on medical paralysis we'll start tapering it down now currently patient is 4 out of 4 will cut it down to half and gradually taper and DC it continue propofol for sedation, supplemental it with Ativan and morphine, chest x-ray from earlier this morning reviewed prominent interstitium has been noted, lacking lactic acid noted to have improved, patient had been aggressively resuscitated with crystalloids, blood pressure is normal the levo fed is being titrated down currently he is on 2 mics, when setting includes assist control rate of 16 and tidal volume of 500 PEEP of 5 and FiO2 is down to 50%, 10 cultures have been done, flu studies noted to be negative, Rocephin is 1 g along with Zithromax we will increase the dose of Rocephin to 2 g and add vancomycin as well for now, prior to intubation patient was complaining of stiffness in the upper extremity head and neck area, spinal tap couldn't be performed as patient is on blood thinners, likelihood of meningitis however is low, labs reviewed medications reviewed critical care time 35 minutes This is a 54-year-old male who was seen evaluated examined in the emergency department this morning he has been not feeling well for 2 weeks of progressive cough shortness of breath associated with purulent sputum production came into emergency department for further evaluation chest x-ray has been negative for any acute process, overall a poor historian he has a long-standing history of cardiovascular problems including chronic atrial fibrillation and flutter histor y of the chronic systolic heart failure baseline ejection fraction of 30% it is thought to be nonischemic cardiomyopathy, patient has a history of Graves' disease pulmonary embolism thyroid disorder history of falls with the pneumothorax and hemothorax and multiple refracture hospitalized back in 2017 on arrival he was noted to have a low-grade fever now resolved, he is being treated with broad-spectrum antibiotics, bronchodilators as well as IV steroids Objective - Vital Signs Vital signs: Vital Signs Temp 99.0 F 06/29/19 08:00 Pulse 115 H 06/29/19 14:15 Resp 13 06/29/19 14:15 BP 99/73 06/29/19 14:15 Pulse Ox 90 L 06/29/19 14:15 Intake & Output 06/28/19 06/29/19 06/29/19 18:59 06:59 18:59 Intake Total 3553.578 3249.338 1824.985 Output Total 1090 1490 385 Balance 2463.578 0232.794 7075.985 Weight 93.7 kg 96.8 kg Intake: IV 475 350 350 Ampicillin-Sulbactam 3 gm 200 100 100 In Sodium Chloride 0.9% 100 ml @ 200 mls/hr IVPB Q6HR [facility] Rx#:[id number] Vancomycin 1,500 mg In 250 250 250 Sodium Chloride 0.9% 250 ml @ 125 mls/hr IVPB Q12H [facility] Rx#:[id number] Intake, IV Titration 2338.578 3143.608 0201.985 Amount Ampicillin-Sulbactam 3 gm 100 In Sodium Chloride 0.9% 100 ml @ 200 mls/hr IVPB Q6HR [facility] Rx#:[id number] Dextrose 5% in Water 1, 800 100 000 ml @ 100 mls/hr IV . Q10H [facility] Rx#:[id number] Dextrose 5% in Water 1, 1200 400 000 ml @ 100 mls/hr IV . Q10H [facility] Rx#:[id number] Dextrose 5% in Water 1, 400 000 ml @ 50 mls/hr IV . Q20H [facility] Rx#:[id number] Dextrose 5% in Water 100 100 ml @ 618 mls/hr IV .Q10M ONE with Amiodarone 150 mg Rx#:[id number] Diltiazem 125 mg In 89.667 82.5 125 Sodium Chloride 0.9% 100 ml @ Per Protocol IV .Q0M [facility] Rx#:[id number] Insulin Regular 100 unit 147.600 124.20 110.534 In Sodium Chloride 0.9% 100 ml @ Per Protocol IV .Q0M [facility] Rx#:[id number] Norepinephrine 4 mg In 119.094 35.880 175.245 Sodium Chloride 0.9% 250 ml @ 0.05 MCG/KG/MIN 15. 554 mls/hr IV .[id number] [facility] Rx#:[id number] Propofol 1,000 mg In 282.217 366.758 344.206 Empty Bag 1 bag @ Titrate IV .Q0M [facility] Rx#: [id number] Sodium Chloride 0.9% 500 500 ml 500 ml @ 999 mls/hr IV .Q31M [facility] Rx#:[id number] Tube Feeding 240 240 20 Other 500 750 100 Output: Urine 1090 1490 385 Other: Voiding Method Indwelling Catheter Indwelling Catheter ABP, PAP, CO, CI - Last Documented Arterial Blood Pressure 116/56 - Exam - Constitutional General appearance: average body habitus, stable currently with medical paralysis and propofol - EENT Eyes: anicteric sclerae, EOMI, PERRLA, poor dentition, normal appearance Ears: bilateral: normal - Neck Neck: normal ROM, diffuse rash which is erythematous involving the neck and upper chest and shoulders Carotids: bilateral: upstroke normal Thyroid: bilateral: normal size - Respiratory Respiratory: bilateral: diminished, wheezing, negative: CTA, - Cardiovascular Rhythm: regular Heart sounds: normal: S1, S2 - Gastrointestinal General gastrointestinal: normal bowel sounds, soft - Integumentary Integumentary: normal turgor - Neurologic Cannot assess being on ventilator - Musculoskeletal Cannot assess being on ventilator - Psychiatric Psychiatric: Cannot assess being on ventilator - Labs CBC & Chem 7: 06/29/19 04:10 06/29/19 04:10 Labs: Abnormal Lab Results - Last 24 Hours (Table) 06/28/19 06/28/19 06/28/19 Range/Units 17:00 17:52 18:58 WBC (3.8-10.6) k/uL RBC (4.30-5.90) m/uL Hgb (13.0-17.5) gm/dL Hct (39.0-53.0) % ABG pCO2 (35-45) mmHg ABG pO2 (83-108) mmHg ABG HCO3 (21-25) mmol/L ABG Total CO2 (19-24) mmol/L ABG O2 Saturation (94-97) % Sodium (137-145) mmol/L Chloride (98-107) mmol/L Carbon Dioxide (22-30) mmol/L BUN (9-20) mg/dL Glucose (74-99) mg/dL POC Glucose (mg/dL) 195 H 202 H 189 H (75-99) mg/dL Calcium (8.4-10.2) mg/dL Urine Glucose (UA) (Negative) Urine Blood (Negative) Urine RBC (0-5) /hpf Urine Mucus (None) /hpf Urine Yeast (Budding) (None) /hpf 06/28/19 06/28/19 06/28/19 Range/Units 19:53 21:08 22:06 WBC (3.8-10.6) k/uL RBC (4.30-5.90) m/uL Hgb (13.0-17.5) gm/dL Hct (39.0-53.0) % ABG pCO2 (35-45) mmHg ABG pO2 (83-108) mmHg ABG HCO3 (21-25) mmol/L ABG Total CO2 (19-24) mmol/L ABG O2 Saturation (94-97) % Sodium (137-145) mmol/L Chloride (98-107) mmol/L Carbon Dioxide (22-30) mmol/L BUN (9-20) mg/dL Glucose (74-99) mg/dL POC Glucose (mg/dL) 153 H 121 H 148 H (75-99) mg/dL Calcium (8.4-10.2) mg/dL Urine Glucose (UA) (Negative) Urine Blood (Negative) Urine RBC (0-5) /hpf Urine Mucus (None) /hpf Urine Yeast (Budding) (None) /hpf 06/28/19 06/29/19 06/29/19 Range/Units 23:07 00:04 00:45 WBC (3.8-10.6) k/uL RBC (4.30-5.90) m/uL Hgb (13.0-17.5) gm/dL Hct (39.0-53.0) % ABG pCO2 (35-45) mmHg ABG pO2 (83-108) mmHg ABG HCO3 (21-25) mmol/L ABG Total CO2 (19-24) mmol/L ABG O2 Saturation (94-97) % Sodium (137-145) mmol/L Chloride (98-107) mmol/L Carbon Dioxide (22-30) mmol/L BUN (9-20) mg/dL Glucose (74-99) mg/dL POC Glucose (mg/dL) 138 H 148 H 176 H (75-99) mg/dL Calcium (8.4-10.2) mg/dL Urine Glucose (UA) (Negative) Urine Blood (Negative) Urine RBC (0-5) /hpf Urine Mucus (None) /hpf Urine Yeast (Budding) (None) /hpf 06/29/19 06/29/19 06/29/19 Range/Units 01:14 01:58 04:10 WBC (3.8-10.6) k/uL RBC (4.30-5.90) m/uL Hgb (13.0-17.5) gm/dL Hct (39.0-53.0) % ABG pCO2 (35-45) mmHg ABG pO2 (83-108) mmHg ABG HCO3 (21-25) mmol/L ABG Total CO2 (19-24) mmol/L ABG O2 Saturation (94-97) % Sodium 146 H (137-145) mmol/L Chloride 111 H (98-107) mmol/L Carbon Dioxide 31 H (22-30) mmol/L BUN 64 H (9-20) mg/dL Glucose 140 H (74-99) mg/dL POC Glucose (mg/dL) 170 H 163 H (75-99) mg/dL Calcium 7.3 L (8.4-10.2) mg/dL Urine Glucose (UA) (Negative) Urine Blood (Negative) Urine RBC (0-5) /hpf Urine Mucus (None) /hpf Urine Yeast (Budding) (None) /hpf 06/29/19 06/29/19 06/29/19 Range/Units 04:10 04:10 05:08 WBC 12.1 H (3.8-10.6) k/uL RBC 3.12 L (4.30-5.90) m/uL Hgb 9.9 L (13.0-17.5) gm/dL Hct 30.5 L (39.0-53.0) % ABG pCO2 (35-45) mmHg ABG pO2 (83-108) mmHg ABG HCO3 (21-25) mmol/L ABG Total CO2 (19-24) mmol/L ABG O2 Saturation (94-97) % Sodium (137-145) mmol/L Chloride (98-107) mmol/L Carbon Dioxide (22-30) mmol/L BUN (9-20) mg/dL Glucose (74-99) mg/dL POC Glucose (mg/dL) 139 H 192 H (75-99) mg/dL Calcium (8.4-10.2) mg/dL Urine Glucose (UA) (Negative) Urine Blood (Negative) Urine RBC (0-5) /hpf Urine Mucus (None) /hpf Urine Yeast (Budding) (None) /hpf 06/29/19 06/29/19 06/29/19 Range/Units 05:19 06:11 07:02 WBC (3.8-10.6) k/uL RBC (4.30-5.90) m/uL Hgb (13.0-17.5) gm/dL Hct (39.0-53.0) % ABG pCO2 49 H (35-45) mmHg ABG pO2 74 L (83-108) mmHg ABG HCO3 31 H (21-25) mmol/L ABG Total CO2 32 H (19-24) mmol/L ABG O2 Saturation 93.5 L (94-97) % Sodium (137-145) mmol/L Chloride (98-107) mmol/L Carbon Dioxide (22-30) mmol/L BUN (9-20) mg/dL Glucose (74-99) mg/dL POC Glucose (mg/dL) 222 H 193 H (75-99) mg/dL Calcium (8.4-10.2) mg/dL Urine Glucose (UA) (Negative) Urine Blood (Negative) Urine RBC (0-5) /hpf Urine Mucus (None) /hpf Urine Yeast (Budding) (None) /hpf 06/29/19 06/29/19 06/29/19 Range/Units 08:10 09:04 10:00 WBC (3.8-10.6) k/uL RBC (4.30-5.90) m/uL Hgb (13.0-17.5) gm/dL Hct (39.0-53.0) % ABG pCO2 (35-45) mmHg ABG pO2 (83-108) mmHg ABG HCO3 (21-25) mmol/L ABG Total CO2 (19-24) mmol/L ABG O2 Saturation (94-97) % Sodium (137-145) mmol/L Chloride (98-107) mmol/L Carbon Dioxide (22-30) mmol/L BUN (9-20) mg/dL Glucose (74-99) mg/dL POC Glucose (mg/dL) 160 H 133 H 128 H (75-99) mg/dL Calcium (8.4-10.2) mg/dL Urine Glucose (UA) (Negative) Urine Blood (Negative) Urine RBC (0-5) /hpf Urine Mucus (None) /hpf Urine Yeast (Budding) (None) /hpf 06/29/19 06/29/19 06/29/19 Range/Units 11:34 12:48 13:52 WBC (3.8-10.6) k/uL RBC (4.30-5.90) m/uL Hgb (13.0-17.5) gm/dL Hct (39.0-53.0) % ABG pCO2 (35-45) mmHg ABG pO2 (83-108) mmHg ABG HCO3 (21-25) mmol/L ABG Total CO2 (19-24) mmol/L ABG O2 Saturation (94-97) % Sodium (137-145) mmol/L Chloride (98-107) mmol/L Carbon Dioxide (22-30) mmol/L BUN (9-20) mg/dL Glucose (74-99) mg/dL POC Glucose (mg/dL) 138 H 213 H 234 H (75-99) mg/dL Calcium (8.4-10.2) mg/dL Urine Glucose (UA) (Negative) Urine Blood (Negative) Urine RBC (0-5) /hpf Urine Mucus (None) /hpf Urine Yeast (Budding) (None) /hpf 06/29/19 06/29/19 Range/Units 15:04 15:35 WBC (3.8-10.6) k/uL RBC (4.30-5.90) m/uL Hgb (13.0-17.5) gm/dL Hct (39.0-53.0) % ABG pCO2 (35-45) mmHg ABG pO2 (83-108) mmHg ABG HCO3 (21-25) mmol/L ABG Total CO2 (19-24) mmol/L ABG O2 Saturation (94-97) % Sodium (137-145) mmol/L Chloride (98-107) mmol/L Carbon Dioxide (22-30) mmol/L BUN (9-20) mg/dL Glucose (74-99) mg/dL POC Glucose (mg/dL) 170 H (75-99) mg/dL Calcium (8.4-10.2) mg/dL Urine Glucose (UA) 2+ H (Negative) Urine Blood Small H (Negative) Urine RBC 60 H (0-5) /hpf Urine Mucus Rare H (None) /hpf Urine Yeast (Budding) Few H (None) /hpf Microbiology - Last 24 Hours (Table) 06/28/19 13:30 Gram Stain - Preliminary Bronchoalviolar Lavage - Right Bronchial Washings Culture - Preliminary 06/28/19 13:30 Acid Fast Bacilli Culture - Preliminary Bronchoalviolar Lavage - Right 06/28/19 13:30 Fungal Culture - Preliminary Bronchoalviolar Lavage - Right 06/23/19 19:30 Blood Culture - Preliminary Blood No Growth after 120 hours Assessment and Plan Assessment: Bilateral lower lobe pneumonia due to Acinetobacter and MRSA in the sputum Small right-sided pleural effusion Fluid overload Hyper natremia Acute hypoxic and hypercapnic respiratory failure Severe sepsis from above Diffuse rash of the neck and upper shoulder Acute COPD exacerbation Purulent tracheobronchitis Cardiomyopathy nonischemic baseline ejection fraction 35%, chronic systolic heart failure Chronic atrial flutter fibrillation on Xarelto History of fall with multiple rib fracture pneumothorax History of extensive smoking and nicotine use Plan: Bronchoscopy for foreign body PICC line Continue vasopressors Continue Cardizem drip Overall plan includes Taper sedation, get rid of propofol as tolerated, will do CPAP and pressure support once oxygenation improved, for the time being patient is on SIMV with pressure support when oxygen comes down anticoagulation to be continued Breathing treatment D5 for hyper natremia IV steroids Increase free water to 250 mL every 6 hourly Continue to feed via OG tube Broad-spectrum antibiotics, Monitor clinical course closely Further recommendations pending plan of care as per clinical response of the patient Continue Lasix to 40 mg IV every 12 Time with Patient: Greater than 30
--- NOTE | 2019-06-29 16:31 | P.PCN ---
Date of Procedure: 06/29/19 Preoperative Diagnosis: Foreign body, mucus plugging, thick respiratory secretions, bilateral polymicrobial pneumonia Postoperative Diagnosis: As above Procedure(s) Performed: As below Surgeon: Remy Ali Condition: stable Disposition: ICU Indications for Procedure: As above Operative Findings: As below Description of Procedure: Patient prepared and draped in a usual fashion fiberoptic bronchoscope was passed through the endotracheal tube patient was placed on 100% oxygen, the extensive amount of thick secretions are present patient also clamping the ET tube requiring medical paralysis single dose of Demadex was given, the scope was passed into trachea extensive amount of secretions are present with she is pearly marie and thick tenacious clogging the scope, the right upper lobe right middle lobe and right lower lobe along with subsegment were inspected, left- sided upper lobe lingular lobe and left lower lobe subsegment were inspected mucous plugs were removed, no foreign body was seen anticipated that the shadow seen previously likely due to mucous plug and respiratory secretions
[2019-06-29 17:06] LABS: Glucose,Whole Blood 124 mg/dL (75-99)
[2019-06-29] MEDS: AMIODARONE 300 MG in DEXTROSE 5% IN WATER 250 ML IV SCH ×2 (17:16)
[2019-06-29] MEDS: DILTIAZEM 125 MG in SODIUM CHLORIDE 0.9% 100 ML IV SCH (17:18)
--- NOTE | 2019-06-29 17:20 | PN ---
PROGRESS NOTE DATE OF SERVICE: 06/29/2019 REASON FOR FOLLOWUP: Pneumonia. INTERVAL HISTORY: The patient is currently afebrile. The last temperature recorded was on 06/27 of 100.8. The patient is still requiring some pressor support and is on amiodarone because of atrial fibrillation with RVR. Tolerating his tube feeds. No diarrhea has been reported. The patient remains sedated on the vent. PHYSICAL EXAMINATION: Blood pressure is 116/53, pulse of 113, temperature 98. He is 93% on 30% FiO2. General description is a middle-aged male lying in bed in no distress. LUNGS: Unlabored breathing. Decreased breath sounds in the base. No wheeze. HEART: S1, S2. Regular rate and rhythm. ABDOMEN: Soft. No tenderness. EXTREMITIES: No edema of the feet. LABS: Hemoglobin 9.9, white count 12.1. BUN of 64, creatinine 1.08. Bronch culture from yesterday so far pending. DIAGNOSTIC IMPRESSION AND PLAN: Patient with acute respiratory failure which is likely multifactorial in this patient who did have a component of pneumonia. The patient is currently covered with vancomycin and Unasyn. That will be continued while waiting for the culture to finalize. Continue with supportive care. MMODL / IJN: [id number] /
[2019-06-29 18:32] LABS: Glucose,Whole Blood 122 mg/dL (75-99)
[2019-06-29 19:07] LABS: Glucose,Whole Blood 135 mg/dL (75-99)
[2019-06-29 20:10] LABS: Glucose,Whole Blood 195 mg/dL (75-99)
[2019-06-29] MEDS: MONTELUKAST 10 MG TAB PO SCH (20:48)
[2019-06-29] MEDS: ATORVASTATIN 10 MG TAB PO SCH (20:48)
[2019-06-29] MEDS: QUEtiapine 100 MG TAB PO SCH (20:48)
[2019-06-29 21:15] LABS: Glucose,Whole Blood 219 mg/dL (75-99)
[2019-06-29 22:12] LABS: Glucose,Whole Blood 208 mg/dL (75-99)
[2019-06-29] MEDS: LORazepam 2 MG/ML INJ IV PRN (22:44)
[2019-06-30] MEDS: AMPICILLIN-SULBACTAM 3 GM in SODIUM CHLORIDE 0.9% 100 ML IVPB SCH ×3 (00:10→11:38)
[2019-06-30] MEDS: PROPOFOL 1,000 MG in EMPTY BAG 1 BAG IV SCH ×8 (00:11→18:09)
[2019-06-30] MEDS: ARTIFICIAL TEARS OINTMENT 3.5 GM TUBE BOTH EYES SCH ×5 (00:12→16:09)
[2019-06-30] MEDS: methylPREDNISolone SOD SUCCI 125 MG/2 ML VIAL IV SCH ×4 (00:12→17:58)
[2019-06-30] MEDS: ARTIFICIAL TEARS-HYPROMELLOSE DROPS 15 ML BTL BOTH EYES SCH ×5 (00:13→16:09)
[2019-06-30 00:20] LABS: Glucose,Whole Blood 136 mg/dL (75-99)
[2019-06-30] MEDS ORDERED: CISATRACURIUM 2 MG/ML 5 ML VIAL IV ONE (00:30)
[2019-06-30] MEDS: VANCOMYCIN 1,500 MG in SODIUM CHLORIDE 0.9% 250 ML IVPB SCH (00:30)
[2019-06-30] MEDS: CISATRACURIUM 200 MG in SODIUM CHLORIDE 0.9% 180 ML IV SCH (00:32)
[2019-06-30 01:37] LABS: Glucose,Whole Blood 119 mg/dL (75-99)
[2019-06-30 02:07] VITALS: BP 95/61
[2019-06-30 02:34] LABS: Glucose,Whole Blood 185 mg/dL (75-99)
[2019-06-30] MEDS: AMIODARONE 300 MG in DEXTROSE 5% IN WATER 250 ML IV SCH ×4 (02:38→11:41)
[2019-06-30] MEDS: DEXTROSE 5% IN WATER 1,000 ML IV SCH ×2 (03:07→12:17)
[2019-06-30 03:14] LABS: Glucose,Whole Blood 217 mg/dL (75-99)
[2019-06-30 04:23] LABS: Glucose,Whole Blood 227 mg/dL (75-99)
[2019-06-30 05:07] LABS: ABG Base Excess 1.3 mmol/L; ABG HCO3 29 mmol/L (21-25); ABG PCO2 70 mmHg (35-45); ABG PH 7.23 (7.35-7.45); ABG PO2 83 mmHg (83-108); ABG TCO2 31 mmol/L (19-24); Allen Test Performed? Yes
[2019-06-30 05:14] LABS: Glucose,Whole Blood 202 mg/dL (75-99)
[2019-06-30] MEDS: INSULIN REGULAR 100 UNIT in SODIUM CHLORIDE 0.9% 100 ML IV SCH ×2 (05:21→11:57)
[2019-06-30 06:19] LABS: Glucose,Whole Blood 194 mg/dL (75-99)
[2019-06-30 07:18] LABS: Glucose,Whole Blood 132 mg/dL (75-99)
[2019-06-30 08:02] LABS: Glucose,Whole Blood 114 mg/dL (75-99)
[2019-06-30 08:05] LABS: HCT 34.8 % (39.0-53.0); HGB 10.7 gm/dL (13.0-17.5); Hypochromasia Slight; MCH 30.2 pg (25.0-35.0); MCHC 30.6 g/dL (31.0-37.0); MCV 98.7 fL (80.0-100.0); Mean Platelet Volume 8.5; Platelet Count 267 k/uL (150-450); RBC 3.53 m/uL (4.30-5.90); RDW 14.3 % (11.5-15.5); WBC 16.3 k/uL (3.8-10.6)
[2019-06-30 08:08] VITALS: TEMP 98.2
[2019-06-30 08:10] LABS: INR 1.1 (<1.2); Prothrombin Time 11.4 sec (9.0-12.0)
[2019-06-30 08:22] LABS: Calcium 7.5 mg/dL (8.4-10.2); Potassium 4.1 mmol/L (3.5-5.1)
--- NOTE | 2019-06-30 08:25 | XR ---
EXAMINATION TYPE: XR chest 1V portable DATE OF EXAM: 06/30/2019 COMPARISON: 06/29/2019 HISTORY: Ventilatory dependent respiratory failure. TECHNIQUE: Single frontal view of the chest is obtained. FINDINGS: Increasing pleural effusions are seen, at least small bilaterally with associated bilatera l dependent atelectasis. Old healed right rib fractures are again noted. Enteric and endotracheal tub es are similar in position. Cardiomediastinal silhouette is again enlarged. IMPRESSION: Increasing fluid overload with now at least small bilateral pleural effusions and bibasi lar atelectasis.
[2019-06-30] MEDS: BUDESONIDE 1 MG/2 ML NEBU INHALATION SCH ×2 (08:27→08:58)
[2019-06-30] MEDS: IPRATROPIUM-ALBUTEROL 3 ML NEB INHALATION SCH ×4 (08:27→16:35)
[2019-06-30] MEDS: FORMOTEROL FUMARATE 20 MCG/2 ML NEBU INHALATION SCH ×2 (08:27→08:57)
[2019-06-30] MEDS: PARoxetine 20 MG TAB PO SCH (08:40)
[2019-06-30] MEDS: FUROSEMIDE 10 MG/ML 4 ML VIAL IV SCH (08:40)
[2019-06-30] MEDS: NICOTINE 14MG/24HR PATCH TRANSDERM SCH (08:40)
[2019-06-30] MEDS: POLYETHYLENE GLYCOL 3350 17 GM POWD.PACK PO SCH (08:40)
[2019-06-30] MEDS: METOPROLOL TARTRATE 50 MG TAB PO SCH (08:40)
[2019-06-30] MEDS: PANTOPRAZOLE 40 MG/10 ML VIAL IVP SCH (08:40)
[2019-06-30] MEDS: CHLORHEXIDINE GLUCONATE 15 ML CUP MUCOUS MEM SCH (08:40)
[2019-06-30] MEDS: NOREPINEPHRINE 4 MG in SODIUM CHLORIDE 0.9% 250 ML IV SCH (08:43)
[2019-06-30 08:52] LABS: ABG Base Excess 2.5 mmol/L; ABG HCO3 28 mmol/L (21-25); ABG Oxygen Saturation 93.6 % (94-97); ABG PCO2 47 mmHg (35-45); ABG PH 7.38 (7.35-7.45); ABG PO2 73 mmHg (83-108); ABG TCO2 29 mmol/L (19-24)
[2019-06-30 08:53] LABS: Allen Test Performed? no
[2019-06-30 09:00] LABS: Glucose,Whole Blood 177 mg/dL (75-99)
[2019-06-30] MEDS: LISINOPRIL 5 MG TAB PO SCH (09:21)
[2019-06-30] MEDS: ERGOCALCIFEROL 50,000 UNIT CAP PO SCH (09:21)
--- NOTE | 2019-06-30 09:41 | PN ---
PROGRESS NOTE Mr. Law is a 54-year-old gentleman with severe COPD. He came in with respiratory failure and yesterday had a bronchoscopy to see if there was a foreign body, but this could not be identified. He is on high doses of FiO2 and still having atrial fibrillation. I will discontinue Cardizem drip, leave him on amiodarone drip. He is probably septic. MRSA is noted in the sputum. I am recommending 2 sets of blood cultures, to continue IV amiodarone and discontinue Cardizem. He is still on a Levophed drip. Blood pressure is acceptable on Levophed. S1, S2 heard normally, irregular rate and rhythm noted. Short systolic murmur noted. Lungs reveal poor air entry bilaterally with scattered rhonchi, respiratory assisted breath sounds. Abdomen and lower extremity exam unchanged. Overall prognosis is very poor. We will continue amiodarone for rate control and perform 2 sets of blood cultures. I will await further input from Dr. David. Patient's prognosis is poor. MMODL / IJN: [id number] /
[2019-06-30 10:13] LABS: Glucose,Whole Blood 167 mg/dL (75-99)
[2019-06-30] MEDS ORDERED: LIDOCAINE 1% INJ 10MG/ML (20 ML MDV) SQ ONE (10:46)
--- NOTE | 2019-06-30 11:19 | XR ---
EXAMINATION TYPE: XR chest 1V portable DATE OF EXAM: 06/30/2019 COMPARISON: 04/30/2020 HISTORY: PICC placement TECHNIQUE: Single frontal view of the chest is obtained. FINDINGS: Right-sided PICC from a subclavian approach terminates in the portal caval confluence. The inferior aspect of the lungs is not image and cannot be evaluated. There is at least a moderate left pleural effusion. Diffuse osseous demineralization multiple old right rib fractures are seen. Endotr acheal and enteric tubes are similar. No postprocedural pneumothorax seen. IMPRESSION: Right PICC placed terminating in the cavoatrial junction. Stable endotracheal and enteri c tubes. Nonvisualization of the inferior portion of the chest. Similar findings the prior earlier on the same date.
[2019-06-30 11:22] LABS: Glucose,Whole Blood 156 mg/dL (75-99)
[2019-06-30] MEDS: MULTIVITAMINS, THERA 1 EACH TAB PO SCH (11:38)
[2019-06-30] MEDS ORDERED: DEXTROSE 5% IN WATER 250 ML with AMIODARONE 300 MG IV ONE (11:42)
[2019-06-30] MEDS ORDERED: VANCOMYCIN TROUGH DUE 1 EACH MISC MISCELLANE ONE (12:00)
[2019-06-30 12:14] LABS: Glucose,Whole Blood 140 mg/dL (75-99)
--- NOTE | 2019-06-30 12:23 | IR ---
PICC LINE PLACEMENT: HISTORY: Infection requiring long-term antibiotic therapy PROCEDURE: Ultrasound guidance of PICC line placement. MARKETING PRODUCTION SPECIALIST: Dr. Chamorro. COMPLICATIONS: None ANESTHESIA: 1. 1% Lidocaine locally. FINDINGS/TECHNIQUE: The procedure was explained to the patient. The risks, complications, benefits and alternatives were discussed and any questions were answered. Informed consent was obtained. The patient was placed supine on the fluoroscopic table and prepped and draped in the usual sterile fas ion. Utilizing a 21 gauge needle and sonographic guidance, access in the right basilic vein was ach ieved and there is placement of a 0.018 guidewire. The vein is patent. A 5-F. sheath was placed ove r the guidewire. The guidewire and dilator were removed and a 5-F. Double lumen PICC line was placed through the sheath with the chest x-ray confirming the tip at the level of the SVC. The sheath was removed, the catheter was flushed and sutured into position. The patient was stable throughout the p rocedure and remained stable upon discharge from the Department of Radiology. The vein puncture was patent under ultrasound. A marie scale image was obtained to document patency of the vein punctured. All elements of the maximal barrier technique were utilized. IMPRESSION: 1. Successful PICC line placement under ultrasound performed bedside within the ICU.
[2019-06-30 13:05] LABS: Glucose,Whole Blood 125 mg/dL (75-99)
[2019-06-30 13:46] VITALS: BMI 37.0
[2019-06-30 14:11] LABS: Glucose,Whole Blood 152 mg/dL (75-99)
[2019-06-30 14:52] LABS: ABG Base Excess 4.3 mmol/L; ABG HCO3 29 mmol/L (21-25); ABG Oxygen Saturation 90.4 % (94-97); ABG PCO2 48 mmHg (35-45); ABG PH 7.39 (7.35-7.45); ABG PO2 63 mmHg (83-108); ABG TCO2 31 mmol/L (19-24)
[2019-06-30 14:53] LABS: Allen Test Performed? no
[2019-06-30 15:16] LABS: Glucose,Whole Blood 142 mg/dL (75-99)
[2019-06-30] MEDS ORDERED: DILTIAZEM DRIP BOLUS FROM BAG 1 MG SOLN IV ONE (15:55)
[2019-06-30] MEDS ORDERED: DEXTROSE 5% IN WATER 100 ML with AMIODARONE 150 MG IV ONE (16:00)
[2019-06-30 16:24] LABS: Glucose,Whole Blood 158 mg/dL (75-99)
--- NOTE | 2019-06-30 16:26 | PN ---
PROGRESS NOTE DATE OF SERVICE: 06/30/2019 REASON FOR FOLLOWUP: Pneumonia. INTERVAL HISTORY: The patient is currently afebrile. The patient is hemodynamically stable. FiO2 is elevated, currently at 90; still having atrial fibrillation with RVR and need for the amiodarone and rate-limiting drugs. The patient has been tolerating his tube feeds. No diarrhea has been reported. He is sedated on the vent. No family at the bedside. PHYSICAL EXAMINATION: Blood pressure 118/66, pulse of 151, temperature of 98. He is 92% on 90% FiO2. General description is a middle-aged male lying in bed in no distress. RESPIRATORY SYSTEM: Unlabored breathing with decreased breath sounds at the base. No wheeze. HEART: S1, S2. Irregular rhythm. ABDOMEN: Soft. No tenderness. LABS: Hemoglobin is 7.7, white count is up to 16.3. BUN of 65, creatinine 1.09. Bronchoscopy cultures so far Gram-negative bacilli. DIAGNOSTIC IMPRESSION AND PLAN: Patient with acute respiratory failure in this patient with previous culture positive for Acinetobacter baumannii and methicillin-resistant Staphylococcus aeruginosa, now with repeat sputum showing a Gram-negative. With overall critical condition, we will broadly cover the patient with meropenem and vancomycin and discontinue Unasyn and monitor his clinical course closely. Overall prognosis remains guarded. Continue with supportive care. MMODL / IJN: [id number] /
[2019-06-30] MEDS ORDERED: MEROPENEM 1 GM in SODIUM CHLORIDE 0.9% 100 ML IVPB SCH (16:45)
[2019-06-30 17:12] LABS: Glucose,Whole Blood 134 mg/dL (75-99)
[2019-06-30] MEDS ORDERED: RIVAROXABAN 20 MG TAB PO SCH (17:30)
[2019-06-30 18:19] LABS: Glucose,Whole Blood 186 mg/dL (75-99)
[2019-06-30 19:07] LABS: Glucose,Whole Blood 174 mg/dL (75-99)
--- NOTE | 2019-06-30 19:26 | P.PN ---
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 Presents on 06/20/2019 with respiratory distress. Status post intubation and placed on mechanical ventilation on 06/21/2019 patient is being the ICU and he followed closely by pulmonary/critical care team with Dr. David as well as infectious team. Patient was found to have acute COPD exacerbation, right pneumonia secondary to MRSA and Acetobacter, patient is on antibiotics with Unasyn and IV vancomycin, his also on some Detrol 60 mg, Xarelto 20 mg daily and he is also on CIWA protocol. He is on oral Lasix. He got 1 dose of Lasix yesterday, he is saturating 89% on 70 FiO2, his ABG showing pO2 of 54, as per pulmonary team his mechanical ventilation has been adjusted after that with recommendation to repeat ABG in 4 hours. Today patient has a rash in the upper chest. He has to regular bowel movements 06/27/2019 Patient remains in the ICU, intubated and sedated. He still have thick secretions. Chest x-ray showing interstitial prominence and patient is still spiking fever at 100.8 today. Patient remains on antibiotics with Unasyn and IV vancomycin and infectious and pulmonary team R following the case closely. He remains on mechanical ventilation with FiO2 of 70%, PEEP of 10 and tidal volume of 450 as per management by critical-care team. His creatinine is slightly increased to 1.4 and Sodium 157 and he is on D5 W at 75 mL/h and water flushes with 60 mL via OG tube every 4 hours. Nutritional consult is ordered. Follow-up sodium level. Also patient on IV Lasix for possible fluid overload. Continue with Solu-Medrol 60 mg on Xarelto 20 mg. Also he is on CIWA protocol His upper chest rash started feeling 06/28/2019 Patient remains in the ICU, he developed A. fib yesterday and hypertension. Patient was started on amiodarone drip and he needed small dose of Levophed, since this morning his Levophed was stopped, his blood pressure was low normal and holding up. However he remains on admission down drip. Patient has history of cardiomyopathy and ejection fraction of 30-35% and he follow-up with Dr. Harper. Without the consult cardiology team. Patient also planned to go for bronchoscopy today at PICC line placement. There is a small bolus of 210 mL yesterday. His WBC is 12.9k, sodium is improving to 150. Creatinine back to normal at 1.1. Sugar is 200-300.he is on insulin but his labile under going to switch him to insulin sliding scale with close monitoring. Yesterday he still had fever at 100-101.5. He remains on Unasyn and IV vancomycin. He is also on IV Lasix 40 mg twice daily, he is on CIWA protocol ulcers on steroids on Medrol 60 mg in D5 W at 100 mL per hour 06/29/2019 Patient in the ICU, still intubated on mechanical ventilation with FiO2 of 70%, PEEP is 10 and tidal volume of 450 as per management by the pulmonary/critical care team who are following the patient very closely. His sodium came down to 146 and his D5 W is lowered 50 mL/h. Cardiology input is appreciated and he was switched to amiodarone drip, his blood pressure improved and the defect was stopped for now however it remains on the low normal side and needs close monitoring. Pulmonary team are planning to repeat bronchoscopy today as per staff. Vitals and labs reviewed. Sugar controlled. Continue with antibiotics as per ID team 06/30/2019 pt is in the ICU and is not improving , actually his FIO2 went up to 90% today, despite he had wash out yesterday with a second bronchoscopy. also pt is tachy cardic and amio drip and on levophed at 0.03 indicating he is in septic shock , ID and pulmonary/critical care team are following the pt closely. pt also on lasix, high dose steroids, broad spectrum antibiotic by ID team , but with no improvement . wbc went up today i called and talked to . Kelsie Phelps, his cousin and Next of Kin , that she has been following up with him and was his DPOA last year. and I updated her with the pt condition and all her questions were answered, he is DNR now as per her request. and the family are considering more comfortable measure his duaghter visited him today Review of system: N/a Active Medications Generic Name Dose Route Start Last Admin Trade Name Freq PRN Reason Stop Dose Admin Acetaminophen 650 mg 06/23/19 20:15 06/27/19 04:39 Tylenol Tab PO 650 mg Q6HR PRN Administration Fever and/ or Pain Hydrocodone Bitart/Acetaminophen 1 each 06/20/19 14:40 06/20/19 18:25 [place] 7.5-325 PO 1 each Q6H PRN Administration Pain Albuterol Sulfate 2.5 mg 06/20/19 07:12 06/21/19 00:31 Ventolin Nebulized INHALATION 2.5 mg RT-Q4H PRN Administration Dyspnea Albuterol/Ipratropium 3 ml 06/20/19 08:00 06/30/19 16:35 Duoneb 0.5 Mg-3 Mg/3 Ml Soln INHALATION 3 ml RT-QID RENZO Administration Albuterol/Ipratropium 3 ml 06/20/19 14:58 06/27/19 03:54 Duoneb 0.5 Mg-3 Mg/3 Ml Soln INHALATION 3 ml RT-QID PRN Administration Shortness Of Breath Or Wheezing Artificial Tears 2 drops 06/30/19 00:00 06/30/19 16:09 Artificial Tear Drops BOTH EYES 2 drops Q4HR RENZO Administration Atorvastatin Calcium 10 mg 06/20/19 21:00 06/29/19 20:48 Lipitor PO 10 mg HS RENZO Administration Budesonide 1 mg 06/20/19 20:00 06/30/19 08:58 Pulmicort INHALATION 1 mg RT-BID RENZO Administration Chlorhexidine Gluconate 15 ml 06/21/19 09:00 06/30/19 08:40 Peridex MUCOUS MEM 15 ml BID RENZO Administration Diphenhydramine HCl 25 mg 06/26/19 13:29 06/26/19 13:47 Benadryl IVP 25 mg Q6HR PRN Administration Allergy Symptoms Ergocalciferol 50,000 unit 06/21/19 09:00 06/30/19 09:21 Vitamin D2 PO Not Given [id number] RENZO Formoterol Fumarate 20 mcg 06/20/19 20:00 06/30/19 08:57 Perforomist INHALATION 20 mcg RT-BID RENZO Administration Furosemide 40 mg 06/25/19 22:15 06/30/19 08:40 Lasix IV 40 mg Q12HR RENZO Administration Propofol 1,000 mg/ IV Solution 100 mls @ 0 mls/hr 06/21/19 01:45 06/30/19 18:09 IV 60 mcg/kg/min .Q0M RENZO 36.36 mls/hr Administration Protocol Titrate Cisatracurium Besylate 200 mg/ 200 mls @ 4.899 mls/hr 06/21/19 03:15 06/30/19 00:32 Sodium Chloride IV 1 mcg/kg/min .Q24H RENZO 4.899 mls/hr Administration Protocol 1 MCG/KG/MIN Norepinephrine Bitartrate 4 mg 254 mls @ 15.554 mls/hr 06/21/19 03:15 06/30/19 14:35 / Sodium Chloride IV 0.03 mcg/kg/min .[id number] RENZO 9.332 mls/hr Titration Protocol 0.05 MCG/KG/MIN Insulin Human Regular 100 unit 101 mls @ 0 mls/hr 06/25/19 06:15 06/30/19 18:08 / Sodium Chloride IV 16 mls/hr .Q0M RENZO 16 mls/hr Titration Protocol Per Protocol Diltiazem HCl 125 mg/ Sodium 125 mls @ 0 mls/hr 06/28/19 01:15 06/30/19 10:07 Chloride IV Infused .Q0M RENZO Titration Protocol Per Protocol Dextrose/Water 1,000 mls @ 50 mls/hr 06/29/19 10:00 06/29/19 17:16 Dextrose 5%-Water Iv Soln IV 50 mls/hr .Q20H RENZO Administration Amiodarone HCl 300 mg/ 256 mls @ 25 mls/hr 06/30/19 11:42 06/30/19 12:04 Dextrose/Water IV 06/30/19 21:56 25 mls/hr .[id number] Administration Vancomycin HCl 1,500 mg/ 250 mls @ 125 mls/hr 07/01/19 09:00 Sodium Chloride IVPB DAILY RENZO Meropenem 1 gm/ Sodium 100 mls @ 200 mls/hr 06/30/19 16:45 06/30/19 17:58 Chloride IVPB 200 mls/hr Q8HR RENZO Administration Protocol Lisinopril 5 mg 06/20/19 15:15 06/30/19 09:21 Zestril PO Not Given DAILY RENZO Lorazepam 1 mg 06/20/19 20:29 06/29/19 22:44 Ativan IV 1 mg Q2HR PRN Administration CIWA 8 or 9 Lorazepam 1 mg 06/20/19 20:29 Ativan IV Q1HR PRN CIWA 10 to 15 Lorazepam 4 mg 06/25/19 07:13 06/25/19 13:43 Ativan IV 4 mg Q2HR PRN Administration Anxiety Methylprednisolone Sodium Succinate 60 mg 06/20/19 18:00 06/30/19 17:58 Solu-Medrol IV 60 mg Q6HR RENZO Administration Metoprolol Tartrate 50 mg 06/20/19 21:00 06/30/19 08:40 Lopressor PO 50 mg BID RENZO Administration Miscellaneous Information 1 each 06/28/19 05:01 Potassium Per Protocol MISCELLANE DAILY PRN Per Protocol Protocol Montelukast Sodium 10 mg 06/20/19 21:00 06/29/19 20:48 Singulair PO 10 mg HS RENZO Administration Morphine Sulfate 2 mg 06/21/19 10:04 06/25/19 11:51 Morphine Sulfate (Inj) IVP 2 mg Q2H PRN Administration Pain/Discomfort Multi-Ingred Cream/Lotion/Oil/Oint 1 applic 06/30/19 00:00 06/30/19 16:09 Lubrifresh Pm Ointment BOTH EYES 1 applic Q4HR RENZO Administration Multivitamins 1 each 06/21/19 12:00 06/30/19 11:38 Theragran PO 1 each DAILY@1200 RENZO Administration Naloxone HCl 0.2 mg 06/20/19 22:43 Narcan IV Q2M PRN Opioid Reversal Nicotine 1 patch 06/20/19 15:15 06/30/19 08:40 Habitrol 14mg/24hr Patch TRANSDERM 1 patch DAILY RENZO Administration Pantoprazole Sodium 40 mg 06/21/19 09:00 06/30/19 08:40 Protonix IVP 40 mg DAILY RENZO Administration Paroxetine HCl 40 mg 06/20/19 15:15 06/30/19 08:40 Paxil PO 40 mg DAILY RENZO Administration Polyethylene Glycol 17 gm 06/21/19 09:00 06/30/19 08:40 Miralax PO Not Given DAILY RENZO Quetiapine Fumarate 100 mg 06/20/19 21:00 06/29/19 20:48 Seroquel PO 100 mg HS RENZO Administration Rivaroxaban 20 mg 06/30/19 17:30 06/30/19 17:58 Xarelto PO 20 mg W/SUPPER RENZO Administration Objective - Vital Signs Vital signs: Vital Signs Temp 98.2 F 06/30/19 08:00 Pulse 138 H 06/30/19 19:00 Resp 25 H 06/30/19 19:00 BP 95/61 06/30/19 12:00 Pulse Ox 91 L 06/30/19 19:00 Intake & Output 06/30/19 06/30/19 07/01/19 06:59 18:59 06:59 Intake Total 2423.318 2147.790 50 Output Total 1375 1425 100 Balance 1048.318 722.790 -50 Weight 101 kg 101 kg Intake: IV 400 550 50 Dextrose 5% in Water 1, 400 550 50 000 ml @ 100 mls/hr IV . Q10H RENZO Rx#:[id number] Intake, IV Titration 897.265 5717.790 Amount Amiodarone 300 mg In 234.167 226.25 Dextrose 5% in Water 250 ml @ 0.5 MG/MIN 25 mls/hr IV .Q10H RENZO Rx#: [id number] Cisatracurium 200 mg In 0 Sodium Chloride 0.9% 180 ml @ 1 MCG/KG/MIN 4.899 mls/hr IV .Q24H RENZO Rx#: [id number] Dextrose 5% in Water 1, 50 000 ml @ 50 mls/hr IV . Q20H RENZO Rx#:[id number] Diltiazem 125 mg In 125 Sodium Chloride 0.9% 100 ml @ Per Protocol IV .Q0M RENZO Rx#:[id number] Insulin Regular 100 unit 149.500 136.867 In Sodium Chloride 0.9% 100 ml @ Per Protocol IV .Q0M RENZO Rx#:[id number] Norepinephrine 4 mg In 61.593 219.673 Sodium Chloride 0.9% 250 ml @ 0.05 MCG/KG/MIN 15. 554 mls/hr IV .[id number] RENZO Rx#:[id number] Propofol 1,000 mg In 478.058 400 Empty Bag 1 bag @ Titrate IV .Q0M RENZO Rx#: [id number] Tube Feeding 300 240 Other 750 250 Output: Urine 1375 1425 100 Other: Voiding Method Indwelling Catheter Indwelling Catheter ABP, PAP, CO, CI - Last Documented Arterial Blood Pressure 117/64 - Exam -GENERAL: The patient is intubated and sedated HEENT: Pupils are round and equally reacting to light. EOMI. No scleral icterus. No conjunctival pallor. Normocephalic, atraumatic. No pharyngeal erythema. No thyromegaly. CARDIOVASCULAR: S1 and S2 present. No murmurs, rubs, or gallops. -PULMONARY: Chest is clear to auscultation, Decreased air entry on both sides with scattered wheezing and crepitation especially in the basal lung zones ABDOMEN: Soft, nontender, nondistended, normoactive bowel sounds. No palpable organomegaly. MUSCULOSKELETAL: No joint swelling or deformity. -EXTREMITIES: No cyanosis, clubbing,. Mild bilateral leg edema NEUROLOGICAL: Gross neurological examination did not reveal any focal deficits. Exam is limited by patient condition SKIN: No rashes. no petechiae. - Labs CBC & Chem 7: 06/30/19 07:50 06/30/19 07:50 Labs: Abnormal Lab Results - Last 24 Hours (Table) 06/29/19 06/29/19 06/29/19 Range/Units 19:58 21:03 22:01 WBC (3.8-10.6) k/uL RBC (4.30-5.90) m/uL Hgb (13.0-17.5) gm/dL Hct (39.0-53.0) % MCHC (31.0-37.0) g/dL ABG pH (7.35-7.45) ABG pCO2 (35-45) mmHg ABG pO2 (83-108) mmHg ABG HCO3 (21-25) mmol/L ABG Total CO2 (19-24) mmol/L ABG O2 Saturation (94-97) % Chloride (98-107) mmol/L BUN (9-20) mg/dL Glucose (74-99) mg/dL POC Glucose (mg/dL) 195 H 219 H 208 H (75-99) mg/dL Calcium (8.4-10.2) mg/dL 06/30/19 06/30/19 06/30/19 Range/Units 00:08 01:12 02:23 WBC (3.8-10.6) k/uL RBC (4.30-5.90) m/uL Hgb (13.0-17.5) gm/dL Hct (39.0-53.0) % MCHC (31.0-37.0) g/dL ABG pH (7.35-7.45) ABG pCO2 (35-45) mmHg ABG pO2 (83-108) mmHg ABG HCO3 (21-25) mmol/L ABG Total CO2 (19-24) mmol/L ABG O2 Saturation (94-97) % Chloride (98-107) mmol/L BUN (9-20) mg/dL Glucose (74-99) mg/dL POC Glucose (mg/dL) 136 H 119 H 185 H (75-99) mg/dL Calcium (8.4-10.2) mg/dL 06/30/19 06/30/19 06/30/19 Range/Units 03:03 03:56 04:58 WBC (3.8-10.6) k/uL RBC (4.30-5.90) m/uL Hgb (13.0-17.5) gm/dL Hct (39.0-53.0) % MCHC (31.0-37.0) g/dL ABG pH 7.23 L (7.35-7.45) ABG pCO2 70 H (35-45) mmHg ABG pO2 (83-108) mmHg ABG HCO3 29 H (21-25) mmol/L ABG Total CO2 31 H (19-24) mmol/L ABG O2 Saturation 93.0 L (94-97) % Chloride (98-107) mmol/L BUN (9-20) mg/dL Glucose (74-99) mg/dL POC Glucose (mg/dL) 217 H 227 H (75-99) mg/dL Calcium (8.4-10.2) mg/dL 06/30/19 06/30/19 06/30/19 Range/Units 05:02 06:08 07:07 WBC (3.8-10.6) k/uL RBC (4.30-5.90) m/uL Hgb (13.0-17.5) gm/dL Hct (39.0-53.0) % MCHC (31.0-37.0) g/dL ABG pH (7.35-7.45) ABG pCO2 (35-45) mmHg ABG pO2 (83-108) mmHg ABG HCO3 (21-25) mmol/L ABG Total CO2 (19-24) mmol/L ABG O2 Saturation (94-97) % Chloride (98-107) mmol/L BUN (9-20) mg/dL Glucose (74-99) mg/dL POC Glucose (mg/dL) 202 H 194 H 132 H (75-99) mg/dL Calcium (8.4-10.2) mg/dL 06/30/19 06/30/19 06/30/19 Range/Units 07:50 07:50 07:50 WBC 16.3 H (3.8-10.6) k/uL RBC 3.53 L (4.30-5.90) m/uL Hgb 10.7 L (13.0-17.5) gm/dL Hct 34.8 L (39.0-53.0) % MCHC 30.6 L (31.0-37.0) g/dL ABG pH (7.35-7.45) ABG pCO2 (35-45) mmHg ABG pO2 (83-108) mmHg ABG HCO3 (21-25) mmol/L ABG Total CO2 (19-24) mmol/L ABG O2 Saturation (94-97) % Chloride 111 H (98-107) mmol/L BUN 65 H (9-20) mg/dL Glucose 126 H (74-99) mg/dL POC Glucose (mg/dL) 114 H (75-99) mg/dL Calcium 7.5 L (8.4-10.2) mg/dL 06/30/19 06/30/19 06/30/19 Range/Units 08:48 08:50 10:02 WBC (3.8-10.6) k/uL RBC (4.30-5.90) m/uL Hgb (13.0-17.5) gm/dL Hct (39.0-53.0) % MCHC (31.0-37.0) g/dL ABG pH (7.35-7.45) ABG pCO2 47 H (35-45) mmHg ABG pO2 73 L (83-108) mmHg ABG HCO3 28 H (21-25) mmol/L ABG Total CO2 29 H (19-24) mmol/L ABG O2 Saturation 93.6 L (94-97) % Chloride (98-107) mmol/L BUN (9-20) mg/dL Glucose (74-99) mg/dL POC Glucose (mg/dL) 177 H 167 H (75-99) mg/dL Calcium (8.4-10.2) mg/dL 06/30/19 06/30/19 06/30/19 Range/Units 11:11 12:03 12:54 WBC (3.8-10.6) k/uL RBC (4.30-5.90) m/uL Hgb (13.0-17.5) gm/dL Hct (39.0-53.0) % MCHC (31.0-37.0) g/dL ABG pH (7.35-7.45) ABG pCO2 (35-45) mmHg ABG pO2 (83-108) mmHg ABG HCO3 (21-25) mmol/L ABG Total CO2 (19-24) mmol/L ABG O2 Saturation (94-97) % Chloride (98-107) mmol/L BUN (9-20) mg/dL Glucose (74-99) mg/dL POC Glucose (mg/dL) 156 H 140 H 125 H (75-99) mg/dL Calcium (8.4-10.2) mg/dL 06/30/19 06/30/19 06/30/19 Range/Units 14:00 14:50 15:05 WBC (3.8-10.6) k/uL RBC (4.30-5.90) m/uL Hgb (13.0-17.5) gm/dL Hct (39.0-53.0) % MCHC (31.0-37.0) g/dL ABG pH (7.35-7.45) ABG pCO2 48 H (35-45) mmHg ABG pO2 63 L (83-108) mmHg ABG HCO3 29 H (21-25) mmol/L ABG Total CO2 31 H (19-24) mmol/L ABG O2 Saturation 90.4 L (94-97) % Chloride (98-107) mmol/L BUN (9-20) mg/dL Glucose (74-99) mg/dL POC Glucose (mg/dL) 152 H 142 H (75-99) mg/dL Calcium (8.4-10.2) mg/dL 06/30/19 06/30/19 06/30/19 Range/Units 16:12 17:01 18:07 WBC (3.8-10.6) k/uL RBC (4.30-5.90) m/uL Hgb (13.0-17.5) gm/dL Hct (39.0-53.0) % MCHC (31.0-37.0) g/dL ABG pH (7.35-7.45) ABG pCO2 (35-45) mmHg ABG pO2 (83-108) mmHg ABG HCO3 (21-25) mmol/L ABG Total CO2 (19-24) mmol/L ABG O2 Saturation (94-97) % Chloride (98-107) mmol/L BUN (9-20) mg/dL Glucose (74-99) mg/dL POC Glucose (mg/dL) 158 H 134 H 186 H (75-99) mg/dL Calcium (8.4-10.2) mg/dL 06/30/19 Range/Units 18:56 WBC (3.8-10.6) k/uL RBC (4.30-5.90) m/uL Hgb (13.0-17.5) gm/dL Hct (39.0-53.0) % MCHC (31.0-37.0) g/dL ABG pH (7.35-7.45) ABG pCO2 (35-45) mmHg ABG pO2 (83-108) mmHg ABG HCO3 (21-25) mmol/L ABG Total CO2 (19-24) mmol/L ABG O2 Saturation (94-97) % Chloride (98-107) mmol/L BUN (9-20) mg/dL Glucose (74-99) mg/dL POC Glucose (mg/dL) 174 H (75-99) mg/dL Calcium (8.4-10.2) mg/dL Microbiology - Last 24 Hours (Table) 06/29/19 14:56 Gram Stain - Preliminary Bronchial Washings - Left Bronchial Washings Culture - Preliminary Gram Neg Bacilli 06/28/19 13:30 Gram Stain - Preliminary Bronchoalviolar Lavage - Right Bronchial Washings Culture - Preliminary Gram Neg Bacilli 06/29/19 14:56 Acid Fast Bacilli Culture - Preliminary Bronchial Washings - Left 06/29/19 14:56 Fungal Culture - Preliminary Bronchial Washings - Left 06/23/19 19:30 Blood Culture - Final Blood No Growth after 144 hours 06/28/19 13:30 Acid Fast Bacilli Smear - Final Bronchoalviolar Lavage - Right Acid Fast Bacilli Culture - Preliminary Assessment and Plan Assessment: Right pneumonia secondary to MRSA and Acinetobacter Acute tracheobronchitis Acute hypoxic respiratory failure Acute COPD exacerbation A. fib with RVR Vascular shock, multifactorial to be infection and cardiogenic Bilateral pleural effusion, right more than left Erythematous rash in the upper chest mild Acute kidney injury Right thyroid nodule Pulmonary artery hypertension Acute kidney injury, present on admission. Resolved Hypernatremia History of PE on Xarelto Chronic nonischemic cardiomyopathy with ejection fraction 30-35% Chronic A. fib Hypothyroidism Chronic alcohol abuse Nicotine dependence Hyperlipidemia Hypertension History of gravis disease History of squamous cell cancer of the skin with removal Plan: This is a 54 years old male who is mechanically ventilated. Patient is followed closely by infectious disease and pulmonary/critical care teams and follow-up recommendation. Continue with antibiotics as per ID team, continue with steroids, continue with his alcohol withdrawal treatment, continue with CIWA protocol. Continue with D5W and water flushes follow-up sodium level. f/u cardiology for his A. fib and low ejection fraction. Continue with insulin, xarelto is resumed. Labs and medication were reviewed.. Continue same treatment. Continue with symptomatic treatment. Resume home medication. Monitor lytes and vitals. DVT and GI prophylaxis. Further recommendations of the clinical course of the patient DVT prophylaxis: Xarelto GI Prophylaxis: PPI Prognosis is remains critically guarded family are consider more comfortable measures
[2019-06-30] MEDS ORDERED: MORPHINE SULFATE 2 MG/ML SYRINGE IV PRN (19:46)
[2019-06-30] MEDS: MORPHINE SULFATE (100 MG/2 ML) 100 MG in SODIUM CHLORIDE 0.9% 100 ML IV SCH (20:28)
[2019-06-30 20:39] VITALS: PULSE 141
[2019-06-30] MEDS ORDERED: SCOPOLAMINE 1.5MG/72HR PATCH TRANSDERM SCH (23:45)
[2019-07-01] MEDS: ARTIFICIAL TEARS-HYPROMELLOSE DROPS 15 ML BTL BOTH EYES SCH (01:44)
[2019-07-01] MEDS: ARTIFICIAL TEARS OINTMENT 3.5 GM TUBE BOTH EYES SCH ×2 (01:44→04:53)
[2019-07-01] MEDS: MORPHINE SULFATE (100 MG/2 ML) 100 MG in SODIUM CHLORIDE 0.9% 100 ML IV SCH (01:45)
[2019-07-01 04:54] VITALS: RESP 8
--- NOTE | 2019-07-01 08:18 | P.DS ---
Providers Date of admission: 06/20/19 21:56 Attending physician: Jose Enrique Martino Consults: 06/20/19 07:12 Consult Physician Routine Consulting Provider: Remy David Consult Reason/Comments: Your patient. COPD exacerbation Do you want consulting provider notified?: Yes 06/21/19 15:14 Consult Physician Urgent Consulting Provider: Agatha Ross Consult Reason/Comments: sepsis Do you want consulting provider notified?: Already Contacted 06/28/19 15:38 Consult Physician Urgent Consulting Provider: Mikael Martins Consult Reason/Comments: R-fib w/RVR Do you want consulting provider notified?: Yes Primary care physician: [facility] Course: I came to see the patient today , patient was overnight. On the final records patient was on 07/01/2019 at 05:11 am. Please refer to my note from 06/30/2019 for more details, and medical records after that Patient Condition at Discharge: Fair Plan - Discharge Summary Discharge Rx Participant: No New Discharge Prescriptions: No Action QUEtiapine [SEROquel] 100 mg PO HS PARoxetine HCL [Paxil] 40 mg PO DAILY Amiodarone HCl [Pacerone] 200 mg PO DAILY Albuterol Inhaler [Ventolin Hfa Inhaler] 2 puff INHALATION RT-Q6H PRN PRN Reason: Shortness Of Breath Atorvastatin [Lipitor] 10 mg PO HS Metoprolol Tartrate [Lopressor] 50 mg PO BID Umeclidinium [place] [Incruse Ellipta] 1 puff INHALATION RT-DAILY Pantoprazole [Protonix] 40 mg PO DAILY Albuterol Nebulized [Ventolin Nebulized] 2.5 mg INHALATION RT-TID Budesonide [Pulmicort Flexhaler] 2 puff INHALATION RT-BID Lisinopril [Zestril] 5 mg PO DAILY #30 tab Ergocalciferol [Vitamin D2 (DRISDOL)] 50,000 unit PO MOWEFR Polyethylene Glycol 3350 [Miralax] 17 gm PO DAILY Furosemide [Lasix] 40 mg PO DAILY Montelukast [Singulair] 10 mg PO HS 30 Days #30 tab Rivaroxaban [Xarelto] 20 mg PO DAILY Discharge Medication List Amiodarone HCl [Pacerone] 200 mg PO DAILY 07/23/17 [History] PARoxetine HCL [Paxil] 40 mg PO DAILY 07/23/17 [History] QUEtiapine [SEROquel] 100 mg PO HS 07/23/17 [History] Albuterol Inhaler [Ventolin Hfa Inhaler] 2 puff INHALATION RT-Q6H PRN 12/17/17 [History] Albuterol Nebulized [Ventolin Nebulized] 2.5 mg INHALATION RT-TID 12/17/17 [History] Atorvastatin [Lipitor] 10 mg PO HS 12/17/17 [History] Metoprolol Tartrate [Lopressor] 50 mg PO BID 12/17/17 [History] Pantoprazole [Protonix] 40 mg PO DAILY 12/17/17 [History] Umeclidinium [place] [Incruse Ellipta] 1 puff INHALATION RT-DAILY 12/17/17 [History] Budesonide [Pulmicort Flexhaler] 2 puff INHALATION RT-BID 01/03/18 [History] Lisinopril [Zestril] 5 mg PO DAILY #30 tab 01/05/18 [Rx] Ergocalciferol [Vitamin D2 (DRISDOL)] 50,000 unit PO MOWEFR 02/03/19 [History] Furosemide [Lasix] 40 mg PO DAILY 02/03/19 [History] Polyethylene Glycol 3350 [Miralax] 17 gm PO DAILY 02/03/19 [History] Montelukast [Singulair] 10 mg PO HS 30 Days #30 tab 02/07/19 [Rx] Rivaroxaban [Xarelto] 20 mg PO DAILY 06/20/19 [History] Follow up Appointment(s)/Referral(s): Mónica Acosta MD [Primary Care Provider] - 1-2 days
[2019-07-01] MEDS ORDERED: VANCOMYCIN 1,500 MG in SODIUM CHLORIDE 0.9% 250 ML IVPB SCH (09:00)
[2019-07-03 09:16] LABS: Glucose,Whole Blood 121 mg/dL (75-99)
[2019-07-03 09:16] LABS: Glucose,Whole Blood 118 mg/dL (75-99)
--- NOTE | 2019-07-04 13:04 | CDI ---
Documentation Clarification Form Date: 07/04/19 From: Mayuri James Phone: If you have a question about this query, please contact Natalie Palacio Flight Readiness Technician at [phone] between 8am and 5pm. Admit Date: 06/20/19 Discharge Date: 07/01/19 Patient Name: Stone Law Visit Number: [id number] ATTENTION: The Clinical Documentation Specialists (CDI) and [facility] Coding Staff appreciate your assistance in clarifying documentation. Please respond to the clarification below the line at the bottom and electronically sign. The CDI & [facility] Coding staff will review the response and follow-up if needed. Please note: Queries are made part of the Legal Health Record. If you have any questions, please contact the author of this message via ITS. Dear Dr. Barker Sheet, Can you please dictate the /Discharge Summary and include the likely/preliminary cause of ? Thank you for your assistance. likely cause of : septic shock and resp failure MTDD
--- NOTE | 2019-07-04 13:24 | CDI ---
Documentation Clarification Form Date: 07/04/19 From: Mayuri James Phone: If you have a question about this query, please contact Natalie Palacio, Cylinder Block Hole Reliner at [phone] between 8am and 5pm. Admit Date: 06/20/19 Discharge Date: 07/01/19 Patient Name: Stone Law Visit Number: [id number] ATTENTION: The Clinical Documentation Specialists (CDI) and [facility] Coding Staff appreciate your assistance in clarifying documentation. Please respond to the clarification below the line at the bottom and electronically sign. The CDI & [facility] Coding staff will review the response and follow-up if needed. Please note: Queries are made part of the Legal Health Record. If you have any questions, please contact the author of this message via ITS. Dear Dr. Mj Jonas, Documentation of emphysema is located in the Chest CT, CXR 06/27, PNs 06/26, 06/28 & 06/29. History/Risk Factors: s/p ablation for atrial flutter, HTN old [place], hx Graves & hypothyroidism, hx PE, nonischemic cardiomyopathy Significant history of respiratory disorders/disease; sob, cough for past several days, because of increasing difficulties and lack of improvement the patient presented the hospital ([facility]) Present or past smoker/PPD: cigarette smoker Home O2: No Clinical Indicators: ABGs: pH-7.23, HCO3-16, Total CO2-17 CXR: no active cardiopulmonary disease. Vital Signs/Pulse Oximetry: P-117, R-28, BP-98/66, 102/64 Lung and Respiratory Assessment: diminished, wheezing, rales & rhonchi Treatment: MV, BAL x 2 Nebulizers: Duoneb, Ventolin Steroids: IV Solu-Medrol O2 @ 2/3 liters and then intubated and placed on MV Antibiotics: IVRocephin, Zithromax, In your professional opinion, can you please clarify if the above findings and treatment signify any of the following? Acute Exacerbation of Chronic Obstructive Pulmonary Disease (COPD) Chronic obstructive pulmonary disease with acute lower respiratory infection Emphysema Other condition, please specify Unable to determine Acute Exacerbation of Chronic Obstructive Pulmonary Disease MTDD
--- NOTE | 2019-07-04 13:46 | CDI ---
Documentation Clarification Form Date: 07/04/19 From: Mayuri James Phone: If you have a question about this query, please contact Natalie Palacio, Head Automatic Sawyer at [phone] between 8am and 5pm. Admit Date: 06/20/19 Discharge Date: 07/01/19 Patient Name: Stone Law Visit Number: [id number] ATTENTION: The Clinical Documentation Specialists (CDI) and [facility] Coding Staff appreciate your assistance in clarifying documentation. Please respond to the clarification below the line at the bottom and electronically sign. The CDI & [facility] Coding staff will review the response and follow-up if needed. Please note: Queries are made part of the Legal Health Record. If you have any questions, please contact the author of this message via ITS. Dear Dr. Mj Jonas, Atrial Fibrillation is documented in the ED Note, H&P, consults and numerous PNs. Per H&P/Dr Grider-Hx of paroxysmal a fib. Dr David: chronic a fib. Dr Chaparro: perisistent A fib History/Risk Factors: s/p ablation for atrial flutter, HTN old [place], hx Graves & hypothyroidism, hx PE, nonischemic cardiomyopathy EKG/telemetry: 06/20-accelerated junctional rhythm Treatment: Amiodarone 200 mg po daily, Xarelto 20 mg po daily In your professional opinion, can you please clarify the type of Atrial Fibrillation, if known? Chronic Permanent Paroxysmal Persistent, longstanding Persistent, other Persistent, permanent Other, please specify Unable to determine Paroxysmal MTDD
--- NOTE | 2019-07-05 16:36 | P.PN ---
Subjective Progress Note Date: 06/30/19 (Critical care time 35 minutes) Principal diagnosis: Polymicrobial pneumonia associated with Acinetobacter and Staph Acute hypoxic and hypercapnic respiratory failure Acute COPD exacerbation Mild hyper natremia Fluid overload Cardiomyopathy nonischemic baseline ejection fraction 35%, chronic systolic heart failure Chronic atrial flutter fibrillation History of fall with multiple rib fracture pneumothorax History of extensive smoking and nicotine use 06/30/2019, patient seen eval reexamined bronchoscopy was performed for foreign body and pulmonary toilet no foreign body was seen patient continued to be significantly hypoxic FiO2 is up 200%, patient remains tachypneic tachycardic A. fib with rapid ventricular response levo fed has been initiated as well patient is ALSO on amiodarone drip and hydrated detailed discussion with the family, patient remains on antibiotics and supportive care, as per discussion there leaning towards possible comfort measures however they're waiting for further family member to make a final determination and decision will be waiting for their advice 06/29/2019, patient remains on same vent elicited ventilator setting with SIMV rate of 10 tidal volume of 500 PEEP of 5 which is, oxygen as well as very thick purulent secretions in the lung patient is elected for bronchoscopy, patient remains on PEEP of 10 with SIMV pressure support, tube feedings given patient developed labs A. fib with rapid ventricular response requiring Cardizem drip and will obtain a PICC line and will undergo bronchoscopy as well for foreign body t, sodium remains high patient is on D5 and free water, critical care time 35 minutes 06/28/2019, patient seen eval reexamined during the rounds labs reviewed medications reviewed due to increased requirement for oxygen as well as very thick purulent secretions in the lung patient is elected for bronchoscopy, patient remains on PEEP of 10 with SIMV pressure support, tube feedings given patient developed labs A. fib with rapid ventricular response requiring Cardizem drip and will obtain a PICC line and will undergo bronchoscopy as well for pulmonary toilet, sodium remains high patient is on D5 and free water, critical care time 35 minutes 06/27/2019, patient seen eval examined during the rounds labs reviewed medications reviewed sodium level is still high we'll increase the free water, patient remains on SIMV mode with pressure support and PEEP of 10 FiO2 70% ABGs are stable, thick pulmonary secretions are present, culture reports are reviewed, patient remains on broad-spectrum antibiotics, to feed as tolerated well, due to elevated sugar patient is on insulin drip, remains on propofol, once FiO2 improve will restart weaning critical care time 35 minutes 06/26/2019, patient seen eval examined during the rounds went setting have been adjusted patient is switched to SIMV with pressure support he seems to be doing with better with this setting PEEP was increased to 10 FiO2 is improved pH has improved however patient has hypernatremia she has been started on D5, computed tomography scan of the head as well as the chest has been performed which is reviewed, extensive emphysema and bibasilar infiltrates are seen, patient remains on propofol drip off of vasopressors now, labs reviewed medications reviewed care plan discussed with Her family members at length, once oxygenation is improved gradually will wean down the ventilator setting, 06/25/2019, patient seen eval examined during the rounds labs reviewed medications reviewed patient continued to be hypoxic today is for the first time she is -730 mL his urine output is fairly adequate about 50 60/h but has been declining, he is on 40 mg of IV Lasix will increase it to twice a day, his NG tube is changed OG tube, the cellulitis that he has on neck and upper chest seems to be slowly progressing, patient has been switched to antibiotics currently on ampicillin along with IV vancomycin, his went setting includes assist control rate of 16 tidal volume of 500 PEEP has been escalated to 8, FiO2 is 70% with that saturation is 90 urine 94%, he is off of vasopressors, his cultures are growing Acinetobacter and MRSA in the sputum, he is tolerating tube feed very well, patient is being replaced on hypokalemia 06/24/2019, patient seen and evaluated examined during the rounds labs reviewed medications reviewed patient came back positive for Acinetobacter and Staph in the sputum, he remains hemodynamically stable off of vasopressors, however he is positive almost 10-15 L, patient has a good response with Lasix given this morning we'll put on a daily basis also patient has mild hypernatremia S patient is tolerating tube feed will DC the extra IV fluids, we'll continue to titrate propofol down as tolerated plan to do weaning tomorrow, labs reviewed medications reviewed care plan discussed with the staff at length FiO2 is slightly increased to 60% and likely related to fluid overload 06/23/2019, patient seen eval examined during the rounds patient is off of vasopressors off of the medical paralysis however remains on the propofol 70 mics, patient is deeply sedated remains on assist control rate of 16 tidal v olume of 505 of PEEP and FiO2 down to 40%, chest x-ray reviewed overall remains stable patient is being treated for bilateral pneumonia, tomorrow we'll taper down the sedation and see if a CPAP of 5 trial with pressure support can be done continued to feed for now repeat labs and x-ray tomorrow 06/22/2019, patient seen eval reexamined during the rounds, Nimbex drip have been tapered and DC'd, patient remains on full ventilator support, fall was attempted to wean down but patient becomes anxious and agitated he does intermittently open eyes, he remains on assist control mode rate of 16 and tidal volume of 500+5 of PEEP and 50% oxygen, white cell count is 4000 with stable hemoglobin of 710.6, arterial blood gases on above vent setting include pH is 7.32 pCO2 30 and pO2 109 FiO2 subsequently decreased to 40%, order have been placed restart the tube feed patient remains on vancomycin and high-dose Rocephin, patient has been evaluated by infectious disease services the pretest probability of the meningitis is low but he remains on emperic therapy, will wean down the propofol further and reassess the mental status and try to wean as tolerated, chest x-ray showed right lower lobe pneumonia and a small effusion 06/21/2019, patient seen eval reexamined during the rounds events from earlier this morning noted patient developed respiratory distress and severe metabolic acidosis likely related to acute COPD exacerbation and severe sepsis from unknown source, patient was intubated due to severe agitation patient has been started on medical paralysis we'll start tapering it down now currently patient is 4 out of 4 will cut it down to half and gradually taper and DC it continue propofol for sedation, supplemental it with Ativan and morphine, chest x-ray from earlier this morning reviewed prominent interstitium has been noted, lacking lactic acid noted to have improved, patient had been aggressively resuscitated with crystalloids, blood pressure is normal the levo fed is being titrated down currently he is on 2 mics, when setting includes assist control rate of 16 and tidal volume of 500 PEEP of 5 and FiO2 is down to 50%, 10 cultures have been done, flu studies noted to be negative, Rocephin is 1 g along with Zithromax we will increase the dose of Rocephin to 2 g and add vancomycin as well for now, prior to intubation patient was complaining of stiffness in the upper extremity head and neck area, spinal tap couldn't be performed as patient is on blood thinners, likelihood of meningitis however is low, labs reviewed medications reviewed critical care time 35 minutes This is a 54-year-old male who was seen evaluated examined in the emergency department this morning he has been not feeling well for 2 weeks of progressive cough shortness of breath associated with purulent sputum production came into emergency department for further evaluation chest x-ray has been negative for any acute process, overall a poor historian he has a long-standing history of cardiovascular problems including chronic atrial fibrillation and flutter history of the chronic systolic heart failure baseline ejection fraction of 30% it is thought to be nonischemic cardiomyopathy, patient has a history of Graves' disease pulmonary embolism thyroid disorder history of falls with the pneum othorax and hemothorax and multiple refracture hospitalized back in 2017 on arrival he was noted to have a low-grade fever now resolved, he is being treated with broad-spectrum antibiotics, bronchodilators as well as IV steroids Objective - Vital Signs Vital signs: Vital Signs Temp 98.2 F 06/30/19 08:00 Pulse 151 H 06/30/19 15:00 Resp 26 H 06/30/19 15:00 BP 95/61 06/30/19 12:00 Pulse Ox 92 L 06/30/19 15:00 Intake & Output 06/29/19 06/30/19 06/30/19 18:59 06:59 18:59 Intake Total 2093.692 2423.318 1815.323 Output Total 1035 1375 1100 Balance 1430.418 0723.318 715.323 Weight 101 kg 101 kg Intake: IV 350 400 400 Ampicillin-Sulbactam 3 gm 100 In Sodium Chloride 0.9% 100 ml @ 200 mls/hr IVPB Q6HR [facility] Rx#:[id number] Dextrose 5% in Water 1, 400 400 000 ml @ 100 mls/hr IV . Q10H [facility] Rx#:[id number] Vancomycin 1,500 mg In 250 Sodium Chloride 0.9% 250 ml @ 125 mls/hr IVPB Q12H [facility] Rx#:[id number] Intake, IV Titration 1583.692 973.318 965.323 Amount Amiodarone 300 mg In 234.167 226.25 Dextrose 5% in Water 250 ml @ 0.5 MG/MIN 25 mls/hr IV .Q10H [facility] Rx#: [id number] Cisatracurium 200 mg In 0 Sodium Chloride 0.9% 180 ml @ 1 MCG/KG/MIN 4.899 mls/hr IV .Q24H [facility] Rx#: [id number] Dextrose 5% in Water 1, 100 000 ml @ 100 mls/hr IV . Q10H [facility] Rx#:[id number] Dextrose 5% in Water 1, 600 50 000 ml @ 50 mls/hr IV . Q20H [facility] Rx#:[id number] Dextrose 5% in Water 100 100 ml @ 618 mls/hr IV .Q10M ONE with Amiodarone 150 mg Rx#:[id number] Diltiazem 125 mg In 125 125 Sodium Chloride 0.9% 100 ml @ Per Protocol IV .Q0M [facility] Rx#:[id number] Insulin Regular 100 unit 110.534 149.500 94.400 In Sodium Chloride 0.9% 100 ml @ Per Protocol IV .Q0M [facility] Rx#:[id number] Norepinephrine 4 mg In 175.245 61.593 219.673 Sodium Chloride 0.9% 250 ml @ 0.05 MCG/KG/MIN 15. 554 mls/hr IV .[id number] [facility] Rx#:[id number] Propofol 1,000 mg In 372.913 478.058 300 Empty Bag 1 bag @ Titrate IV .Q0M [facility] Rx#: [id number] Oral 40 Tube Feeding 20 300 200 Other 100 750 250 Output: Urine 1035 1375 1100 Other: Voiding Method Indwelling Catheter Indwelling Catheter ABP, PAP, CO, CI - Last Documented Arterial Blood Pressure 118/66 - Exam - Constitutional General appearance: average body habitus, stable currently with medical paralysis and propofol - EENT Eyes: anicteric sclerae, EOMI, PERRLA, poor dentition, normal appearance Ears: bilateral: normal - Neck Neck: normal ROM, diffuse rash which is erythematous involving the neck and upper chest and shoulders Carotids: bilateral: upstroke normal Thyroid: bilateral: normal size - Respiratory Respiratory: bilateral: diminished, wheezing, negative: CTA, - Cardiovascular Rhythm: regular Heart sounds: normal: S1, S2 - Gastrointestinal General gastrointestinal: normal bowel sounds, soft - Integumentary Integumentary: normal turgor - Neurologic Cannot assess being on ventilator - Musculoskeletal Cannot assess being on ventilator - Psychiatric Psychiatric: Cannot assess being on ventilator - Labs CBC & Chem 7: 06/30/19 07:50 06/30/19 07:50 Labs: Abnormal Lab Results - Last 24 Hours (Table) 06/29/19 06/29/19 06/29/19 Range/Units 16:55 18:21 18:56 WBC (3.8-10.6) k/uL RBC (4.30-5.90) m/uL Hgb (13.0-17.5) gm/dL Hct (39.0-53.0) % MCHC (31.0-37.0) g/dL ABG pH (7.35-7.45) ABG pCO2 (35-45) mmHg ABG pO2 (83-108) mmHg ABG HCO3 (21-25) mmol/L ABG Total CO2 (19-24) mmol/L ABG O2 Saturation (94-97) % Chloride (98-107) mmol/L BUN (9-20) mg/dL Glucose (74-99) mg/dL POC Glucose (mg/dL) 124 H 122 H 135 H (75-99) mg/dL Calcium (8.4-10.2) mg/dL 06/29/19 06/29/19 06/29/19 Range/Units 19:58 21:03 22:01 WBC (3.8-10.6) k/uL RBC (4.30-5.90) m/uL Hgb (13.0-17.5) gm/dL Hct (39.0-53.0) % MCHC (31.0-37.0) g/dL ABG pH (7.35-7.45) ABG pCO2 (35-45) mmHg ABG pO2 (83-108) mmHg ABG HCO3 (21-25) mmol/L ABG Total CO2 (19-24) mmol/L ABG O2 Saturation (94-97) % Chloride (98-107) mmol/L BUN (9-20) mg/dL Glucose (74-99) mg/dL POC Glucose (mg/dL) 195 H 219 H 208 H (75-99) mg/dL Calcium (8.4-10.2) mg/dL 06/30/19 06/30/19 06/30/19 Range/Units 00:08 01:12 02:23 WBC (3.8-10.6) k/uL RBC (4.30-5.90) m/uL Hgb (13.0-17.5) gm/dL Hct (39.0-53.0) % MCHC (31.0-37.0) g/dL ABG pH (7.35-7.45) ABG pCO2 (35-45) mmHg ABG pO2 (83-108) mmHg ABG HCO3 (21-25) mmol/L ABG Total CO2 (19-24) mmol/L ABG O2 Saturation (94-97) % Chloride (98-107) mmol/L BUN (9-20) mg/dL Glucose (74-99) mg/dL POC Glucose (mg/dL) 136 H 119 H 185 H (75-99) mg/dL Calcium (8.4-10.2) mg/dL 06/30/19 06/30/19 06/30/19 Range/Units 03:03 03:56 04:58 WBC (3.8-10.6) k/uL RBC (4.30-5.90) m/uL Hgb (13.0-17.5) gm/dL Hct (39.0-53.0) % MCHC (31.0-37.0) g/dL ABG pH 7.23 L (7.35-7.45) ABG pCO2 70 H (35-45) mmHg ABG pO2 (83-108) mmHg ABG HCO3 29 H (21-25) mmol/L ABG Total CO2 31 H (19-24) mmol/L ABG O2 Saturation 93.0 L (94-97) % Chloride (98-107) mmol/L BUN (9-20) mg/dL Glucose (74-99) mg/dL POC Glucose (mg/dL) 217 H 227 H (75-99) mg/dL Calcium (8.4-10.2) mg/dL 06/30/19 06/30/19 06/30/19 Range/Units 05:02 06:08 07:07 WBC (3.8-10.6) k/uL RBC (4.30-5.90) m/uL Hgb (13.0-17.5) gm/dL Hct (39.0-53.0) % MCHC (31.0-37.0) g/dL ABG pH (7.35-7.45) ABG pCO2 (35-45) mmHg ABG pO2 (83-108) mmHg ABG HCO3 (21-25) mmol/L ABG Total CO2 (19-24) mmol/L ABG O2 Saturation (94-97) % Chloride (98-107) mmol/L BUN (9-20) mg/dL Glucose (74-99) mg/dL POC Glucose (mg/dL) 202 H 194 H 132 H (75-99) mg/dL Calcium (8.4-10.2) mg/dL 06/30/19 06/30/19 06/30/19 Range/Units 07:50 07:50 07:50 WBC 16.3 H (3.8-10.6) k/uL RBC 3.53 L (4.30-5.90) m/uL Hgb 10.7 L (13.0-17.5) gm/dL Hct 34.8 L (39.0-53.0) % MCHC 30.6 L (31.0-37.0) g/dL ABG pH (7.35-7.45) ABG pCO2 (35-45) mmHg ABG pO2 (83-108) mmHg ABG HCO3 (21-25) mmol/L ABG Total CO2 (19-24) mmol/L ABG O2 Saturation (94-97) % Chloride 111 H (98-107) mmol/L BUN 65 H (9-20) mg/dL Glucose 126 H (74-99) mg/dL POC Glucose (mg/dL) 114 H (75-99) mg/dL Calcium 7.5 L (8.4-10.2) mg/dL 06/30/19 06/30/19 06/30/19 Range/Units 08:48 08:50 10:02 WBC (3.8-10.6) k/uL RBC (4.30-5.90) m/uL Hgb (13.0-17.5) gm/dL Hct (39.0-53.0) % MCHC (31.0-37.0) g/dL ABG pH (7.35-7.45) ABG pCO2 47 H (35-45) mmHg ABG pO2 73 L (83-108) mmHg ABG HCO3 28 H (21-25) mmol/L ABG Total CO2 29 H (19-24) mmol/L ABG O2 Saturation 93.6 L (94-97) % Chloride (98-107) mmol/L BUN (9-20) mg/dL Glucose (74-99) mg/dL POC Glucose (mg/dL) 177 H 167 H (75-99) mg/dL Calcium (8.4-10.2) mg/dL 06/30/19 06/30/19 06/30/19 Range/Units 11:11 12:03 12:54 WBC (3.8-10.6) k/uL RBC (4.30-5.90) m/uL Hgb (13.0-17.5) gm/dL Hct (39.0-53.0) % MCHC (31.0-37.0) g/dL ABG pH (7.35-7.45) ABG pCO2 (35-45) mmHg ABG pO2 (83-108) mmHg ABG HCO3 (21-25) mmol/L ABG Total CO2 (19-24) mmol/L ABG O2 Saturation (94-97) % Chloride (98-107) mmol/L BUN (9-20) mg/dL Glucose (74-99) mg/dL POC Glucose (mg/dL) 156 H 140 H 125 H (75-99) mg/dL Calcium (8.4-10.2) mg/dL 06/30/19 06/30/19 06/30/19 Range/Units 14:00 14:50 15:05 WBC (3.8-10.6) k/uL RBC (4.30-5.90) m/uL Hgb (13.0-17.5) gm/dL Hct (39.0-53.0) % MCHC (31.0-37.0) g/dL ABG pH (7.35-7.45) ABG pCO2 48 H (35-45) mmHg ABG pO2 63 L (83-108) mmHg ABG HCO3 29 H (21-25) mmol/L ABG Total CO2 31 H (19-24) mmol/L ABG O2 Saturation 90.4 L (94-97) % Chloride (98-107) mmol/L BUN (9-20) mg/dL Glucose (74-99) mg/dL POC Glucose (mg/dL) 152 H 142 H (75-99) mg/dL Calcium (8.4-10.2) mg/dL Microbiology - Last 24 Hours (Table) 06/29/19 14:56 Gram Stain - Preliminary Bronchial Washings - Left Bronchial Washings Culture - Preliminary Gram Neg Bacilli 06/28/19 13:30 Gram Stain - Preliminary Bronchoalviolar Lavage - Right Bronchial Washings Culture - Preliminary Gram Neg Bacilli 06/29/19 14:56 Acid Fast Bacilli Culture - Preliminary Bronchial Washings - Left 06/29/19 14:56 Fungal Culture - Preliminary Bronchial Washings - Left 06/23/19 19:30 Blood Culture - Final Blood No Growth after 144 hours 06/28/19 13:30 Acid Fast Bacilli Smear - Final Bronchoalviolar Lavage - Right Acid Fast Bacilli Culture - Preliminary Assessment and Plan Assessment: Bilateral lower lobe pneumonia due to Acinetobacter and MRSA in the sputum Small right-sided pleural effusion Fluid overload Hyper natremia Acute hypoxic and hypercapnic respiratory failure Severe sepsis from above and septic shock on vasopressors Diffuse rash of the neck and upper shoulder Acute COPD exacerbation Purulent tracheobronchitis Cardiomyopathy nonischemic baseline ejection fraction 35%, chronic systolic heart failure Chronic atrial flutter fibrillation on Xarelto History of fall with multiple rib fracture pneumothorax History of extensive smoking and nicotine use Plan: Bronchoscopy for foreign body done no foreign body seen Family is leaning towards comfort measure we'll be waiting for their advice the meantime Continue vasopressors Continue Cardizem drip, and amiodarone drip anticoagulation to be continued Breathing treatment D5 for hyper natremia IV steroids Continue free water to 250 mL every 6 hourly Continue to feed via OG tube Broad-spectrum antibiotics, Monitor clinical course closely Further recommendations pending plan of care as per clinical response of the patient Continue Lasix to 40 mg IV every 12 Overall prognosis poor with poor likelihood of recovery
== END 2019-07-01 05:11 | disposition expired | DRG 870 ==
LOC: EC 04:39 → 6NMEDSUR 07:39 → 3SCARD 17:38 → 2SICU 21:50 → OBSVTOIN 21:56
PROVIDERS: ADMIT Internal Medicine; ATTEND Internal Medicine
PROC: 0BH17EZ Insertion of Endotracheal Airway into Trachea, Via Natural or Artificial Opening (ICD-10-PCS; principal; 2019-06-21)
PROC: 5A1955Z Respiratory Ventilation, Greater than 96 Consecutive Hours (ICD-10-PCS; principal; 2019-06-21)
PROC: 0D9670Z Drainage of Stomach with Drainage Device, Via Natural or Artificial Opening (ICD-10-PCS; 2019-06-21)
PROC: 3E0G76Z Introduction of Nutritional Substance into Upper GI, Via Natural or Artificial Opening (ICD-10-PCS; 2019-06-22)
PROC: 0B9D8ZX Drainage of Right Middle Lung Lobe, Via Natural or Artificial Opening Endoscopic, Diagnostic (ICD-10-PCS; 2019-06-28)
PROC: 0B9C8ZX Drainage of Right Upper Lung Lobe, Via Natural or Artificial Opening Endoscopic, Diagnostic (ICD-10-PCS; 2019-06-28)
PROC: 0B9G8ZZ Drainage of Left Upper Lung Lobe, Via Natural or Artificial Opening Endoscopic (ICD-10-PCS; 2019-06-29)
PROC: 0B9B8ZZ Drainage of Left Lower Lobe Bronchus, Via Natural or Artificial Opening Endoscopic (ICD-10-PCS; 2019-06-29)
PROC: 02HV33Z Insertion of Infusion Device into Superior Vena Cava, Percutaneous Approach (ICD-10-PCS; 2019-06-30)
DX: A41.50 Gram-negative sepsis, unspecified (principal); J96.01 Acute respiratory failure with hypoxia; J96.02 Acute respiratory failure with hypercapnia; N17.0 Acute kidney failure with tubular necrosis; R65.21 Severe sepsis with septic shock; G93.41 Metabolic encephalopathy; J15.6 Pneumonia due to other Gram-negative bacteria; J15.212 Pneumonia due to Methicillin resistant Staphylococcus aureus; I42.8 Other cardiomyopathies; J44.1 Chronic obstructive pulmonary disease with (acute) exacerbation; J44.0 Chronic obstructive pulmonary disease with (acute) lower respiratory infection; T17.890A Other foreign object in other parts of respiratory tract causing asphyxiation, initial encounter; E87.2 Acidosis; I13.0 Hypertensive heart and chronic kidney disease with heart failure and stage 1 through stage 4 chronic kidney disease, or unspecified chronic kidney disease; I50.22 Chronic systolic (congestive) heart failure; E87.0 Hyperosmolality and hypernatremia; L03.313 Cellulitis of chest wall; Z66 Do not resuscitate; R57.0 Cardiogenic shock; D69.6 Thrombocytopenia, unspecified; I27.21 Secondary pulmonary arterial hypertension; N18.3 Chronic kidney disease, stage 3 (moderate); I48.0 Paroxysmal atrial fibrillation; J20.9 Acute bronchitis, unspecified; E87.6 Hypokalemia; E78.5 Hyperlipidemia, unspecified; F41.9 Anxiety disorder, unspecified; F10.10 Alcohol abuse, uncomplicated; I25.10 Atherosclerotic heart disease of native coronary artery without angina pectoris; E04.1 Nontoxic single thyroid nodule; L53.9 Erythematous condition, unspecified; I25.2 Old myocardial infarction; F17.210 Nicotine dependence, cigarettes, uncomplicated; Z71.6 Tobacco abuse counseling; Z87.01 Personal history of pneumonia (recurrent); Z79.01 Long term (current) use of anticoagulants; Z79.51 Long term (current) use of inhaled steroids; Z79.899 Other long term (current) drug therapy; Z86.39 Personal history of other endocrine, nutritional and metabolic disease; Z86.79 Personal history of other diseases of the circulatory system; Z91.81 History of falling; Z86.711 Personal history of pulmonary embolism; Z90.49 Acquired absence of other specified parts of digestive tract; Z86.14 Personal history of Methicillin resistant Staphylococcus aureus infection; Z98.890 Other specified postprocedural states; Z85.828 Personal history of other malignant neoplasm of skin; Z88.8 Allergy status to other drugs, medicaments and biological substances; Z82.49 Family history of ischemic heart disease and other diseases of the circulatory system; Z82.3 Family history of stroke; Z80.0 Family history of malignant neoplasm of digestive organs
CPT/HCPCS: 31624; 36415; 36573; 36600; 70450; 71045; 71046; 71260; 80048; 80051; 80053; 80202; 81001; 82550; 82553; 82565; 82805; 83605; 83735; 83880; 84132; 84145; 84484; 85025; 85027; 85379; 85610; 85730; 86140; 87040; 87070; 87077; 87102; 87116; 87186; 87205; 87206; 87252; 87324; 87496; 87498; 87502; 87529; 87541; 87634; 87798; 88108; 88305; 93005; 93306; 94002; 94003; 94640; 96360; 96361; 99285